=== PATIENT | female | born 1945 | race Caucasian/White ===

== ENCOUNTER → 2018-01-18 09:54 | Outpatient (CLI) | payer MEDICARE, OTHER, SELFPAY ==
[2018-01-18 12:21] LABS: Cholesterol 172 mg/dL (140-199); Glucose 98 mg/dL (80-110); HDL Cholesterol 58 mg/dL (40-60); LDL Cholesterol Calculated 96 mg/dL (<100); Triglycerides 88 mg/dL (35-150)
[2018-01-18 12:49] LABS: Thyroid Stimulating Hormone 0.75 uIU/mL (0.47-4.68)
== END ==
PROVIDERS: Family Provider Family Medicine; PCP Family Medicine; Visit Provider Family Medicine
DX: E03.9 Hypothyroidism, unspecified (principal)
CPT/HCPCS: 36415; 80061; 82947; 84443

== ENCOUNTER 2018-03-03 13:00 | Outpatient (RCR) | payer MEDICARE, OTHER, SELFPAY ==
--- NOTE | 2017-11-04 10:34 | PT.OTN ---
Transition note: On November 03, 2017 our therapy services consisting of Speech, Occupational, and Physical Therapy transitioned from the [employer] electronic documentation system to a new [employer] electronic documentation system.?? All documentation prior to November 03 can be found under [employer] saved data. From November 03 forward all medical record documentation will be in [employer] 6.1.
--- NOTE | 2017-11-04 11:13 | PT.OTN ---
Physical Therapy Treatment Note PT-OP-A Visit Information Start: 11/04/17 08:07 Freq: Status: Active Protocol: Activity Type Activity Date Activity User E-Sign Co-Sign Detail Recorded Client Recorded Date Recorded By Document 11/04/17 09:55 [facility] [email or web address] 11/04/17 11:13 [facility] 11/04/17 09:55 Out-Patient Physical Therapy Visit Information [Visit Information] -Visit Type Treatment Note -Visit Note POC due 11/16/17 -Visit Start Time 09:00 -Visit Stop Time 09:55 -Total Visit Minutes 55 -Visit Number 3 PT-OP-C Subjective Start: 11/04/17 08:07 Freq: Status: Active Protocol: Activity Type Activity Date Activity User E-Sign Co-Sign Detail Recorded Client Recorded Date Recorded By Document 11/04/17 09:55 [facility] [email or web address] 11/04/17 11:13 [facility] 11/04/17 09:55 OP-PT Subjective [Patient Comments] -Patient Comments Pt reports she has been working on her walking & is improving with her ability to walk without significant pain. Notes her knee still bothers her medially. -Patient Reported Progress Improving PT-OP-Q Treatments Start: 11/04/17 08:07 Freq: Status: Active Protocol: Activity Type Activity Date Activity User E-Sign Co-Sign Detail Recorded Client Recorded Date Recorded By Document 11/04/17 09:55 [facility] [email or web address] 11/04/17 11:13 [facility] 11/04/17 09:55 Cardio Equipment [Recumbent Stepper (Sci-Fit)] -Duration (Minutes) 5 -Resistance 1 Therapeutic Exercises [Standing Exercises] 4 -Standing Exercise Name up/down 4in then 6 in step -Comments cueing for core 3 -Standing Exercise Name Hip ext -Side bilateral -Resistance L2 -Reps/Minutes 20 (B) 2 -Standing Exercise Name TKE -Side left -Resistance L2 -Reps/Minutes 15 1 -Standing Exercise Name wall squats -Side bilateral -Reps/Minutes 20 -Comments mini Manual Therapy Treatment [Soft Tissue Mobilization] 2 -Body Location ITB -Mobilization Type Rolling -Intensity/Depth Moderate -Body Position Supine -Comments 5 min 1 -Body Location Adductors -Mobilization Type Rolling -Intensity/Depth Moderate -Body Position Supine -Comments 15 min [Joint Mobilizations] 1 -Joint PA femur & tibia FM -Grade II -Body Position Supine Strapping Treatment [Treatment] -Body Location L knee -Details of Treatment 3 Y KT tape PT-OP-R Modalities Start: 11/04/17 08:07 Freq: Status: Active Protocol: Activity Type Activity Date Activity User E-Sign Co-Sign Detail Recorded Client Recorded Date Recorded By Document 11/04/17 09:55 [facility] [email or web address] 11/04/17 11:13 [facility] 11/04/17 09:55 Hot Pack/Cold Pack [Treatment] Cold Pack -Location L knee -Patient Position Hooklying -Treatment Duration (minutes) 10 -Patient Tolerance Good PT-OP-T Assessment and Plan Start: 11/04/17 08:07 Freq: Status: Active Protocol: Activity Type Activity Date Activity User E-Sign Co-Sign Detail Recorded Client Recorded Date Recorded By Document 11/04/17 09:55 [facility] [email or web address] 11/04/17 11:13 [facility] 11/04/17 09:55 Physical Therapy Assessment [Assessment Summary] -Assessment Pt is improving with tolerance to exercises and requires cueing for neutral core position. Pt improving with soft tissue mobility of LLE . Physical Therapy Plan [Next Visit Focus/Plan] -Next Visit Plan Try deeper squats & cont to work on glute/quad strength
--- NOTE | 2017-11-06 10:16 | PT.OTN ---
Physical Therapy Treatment Note PT-OP-A Visit Information Start: 11/04/17 08:07 Freq: Status: Active Protocol: Activity Type Activity Date Activity User E-Sign Co-Sign Detail Recorded Client Recorded Date Recorded By Document 11/06/17 09:26 [facility] [id number] 11/06/17 10:16 [facility] 11/06/17 09:26 Out-Patient Physical Therapy Visit Information [Visit Information] -Visit Type Treatment Note -Visit Note POC due 11/16/17 -Visit Start Time 09:25 -Visit Stop Time 10:20 -Total Visit Minutes 55 PT-OP-C Subjective Start: 11/04/17 08:07 Freq: Status: Active Protocol: Activity Type Activity Date Activity User E-Sign Co-Sign Detail Recorded Client Recorded Date Recorded By Document 11/06/17 09:26 [facility] [id number] 11/06/17 10:16 [facility] 11/06/17 09:26 OP-PT Subjective [Patient Comments] -Patient Comments Reports she did squats with rolling on the ball at the wall and was able to massage her back. PT-OP-Q Treatments Start: 11/04/17 08:07 Freq: Status: Active Protocol: Activity Type Activity Date Activity User E-Sign Co-Sign Detail Recorded Client Recorded Date Recorded By Document 11/06/17 09:26 [facility] [id number] 11/06/17 10:16 [facility] 11/06/17 09:26 Cardio Equipment [Recumbent Elliptical (BiodWebflakes)] -Duration (Minutes) 5 -Resistance 1 -Seat Position 8 Therapeutic Exercises [Supine Exercises] 1 -Supine Exercise Name HS & calf stretch -Side left -Resistance manual [Standing Exercises] 5 -Standing Exercise Name resisted fwd/ back -Resistance yellow 6 -Standing Exercise Name resisted sidestep -Resistance yellow 4 -Standing Exercise Name up/down 4in then 6 in step -Comments cueing for core 2 -Standing Exercise Name TKE -Resistance L2 -Reps/Minutes 30 Manual Therapy Treatment [Soft Tissue Mobilization] 3 -Body Location HS -Mobilization Type Rolling [Joint Mobilizations] 3 -Joint fibula -Direction post w/APs 2 -Joint patella -Direction sup, med & inf -Grade III PT-OP-R Modalities Start: 11/04/17 08:07 Freq: Status: Active Protocol: Activity Type Activity Date Activity User E-Sign Co-Sign Detail Recorded Client Recorded Date Recorded By Document 11/06/17 09:26 [facility] [id number] 11/06/17 10:16 [facility] 11/06/17 09:26 Hot Pack/Cold Pack [Treatment] Cold Pack -Location L knee -Patient Position Hooklying -Treatment Duration (minutes) 10 -Patient Tolerance Good PT-OP-T Assessment and Plan Start: 11/04/17 08:07 Freq: Status: Active Protocol: Activity Type Activity Date Activity User E-Sign Co-Sign Detail Recorded Client Recorded Date Recorded By Document 11/06/17 09:26 [facility] [id number] 11/06/17 10:16 [facility] 11/06/17 09:26 Physical Therapy Assessment [Assessment Summary] -Assessment Pt is improving with ability to do stairs without pain. Pt has tightness in calf and HS and encouraged to stretch. Physical Therapy Plan [Next Visit Focus/Plan] -Next Visit Plan calf/HS stretchs, work on deeper squats
--- NOTE | 2017-11-13 10:49 | PT.OTN ---
Physical Therapy Treatment Note PT-OP-A Visit Information Start: 11/04/17 08:07 Freq: Status: Active Protocol: Document 11/12/17 13:01 [facility] (Rec: 11/12/17 13:06 [facility] [id number]) Out-Patient Physical Therapy Visit Information Visit Information Visit Type Progress Note Visit Note 13 visits this year Visit Start Time 13:00 Visit Stop Time 13:55 Total Visit Minutes 55 Visit Number 0 since Gcode PT-OP-C Subjective Start: 11/04/17 08:07 Freq: Status: Active Protocol: Document 11/12/17 13:01 [facility] (Rec: 11/12/17 13:06 [facility] [id number]) OP-PT Subjective Patient Comments Patient Comments Pt reports knee has been doing well. Reports she is walking. Patient Questionnaires Lower Extremity Functional Scale LEFS Score 38 LEFS Impairment 40 to 59% Impaired (Score 32- 47) PT-OP-K Range of Motion Start: 11/04/17 08:07 Freq: Status: Active Protocol: Document 11/12/17 13:06 [facility] (Rec: 11/12/17 13:52 [facility] [id number]) Knee Goniometric Range of Motion Knee Measured in Degrees Left Flexion Active (degrees) 125 Extension Active (degrees) 2 PT-OP-M Strength Start: 11/04/17 08:07 Freq: Status: Active Protocol: Document 11/12/17 13:06 [facility] (Rec: 11/12/17 13:52 [facility] [id number]) Hip Strength Hip Manual Muscle Testing Right Flexion (L2) 5 Normal Extension (S1) 4+ Good+ Abduction 4+ Good+ Adduction 5 Normal External Rotation 4+ Good+ Internal Rotation 5 Normal Left Flexion (L2) 5 Normal Extension (S1) 4+ Good+ Abduction 4+ Good+ Adduction 5 Normal External Rotation 4- Good- Internal Rotation 5 Normal Comments pain w/ER Knee Strength Knee Manual Muscle Testing Left Flexion (S2) 4+ Good+ Extension (L3) 4 Good Comments pain w/ext 5/5 R 5/5 (B) ankle PT-OP-Q Treatments Start: 11/04/17 08:07 Freq: Status: Active Protocol: Document 11/12/17 13:06 [facility] (Rec: 11/12/17 13:52 [facility] [id number]) Cardio Equipment Recumbent Elliptical (Biodex) Duration (Minutes) 5 Resistance 2 Seat Position 8 Therapeutic Exercises Supine Exercises 2 Supine Exercise Name bridge with HS curl w/ball Reps/Minutes 5 stopped d/t difficulty Sidelying Exercises 1 Sidelying Exercise Name clamshell Resistance L1 Reps/Minutes 2x10 Sitting Exercises 2 Sitting Exercise Name LAQ Resistance L2 Reps/Minutes 2x10 1 Sitting Exercise Name HS curl Resistance L2 Reps/Minutes 2x10 Manual Therapy Treatment Soft Tissue Mobilization 3 Body Location HS Mobilization Type Rolling 2 Body Location ITB Mobilization Type Rolling Intensity/Depth Moderate Body Position Supine Joint Mobilizations 2 Joint patella Direction sup, med & inf Grade III Taping 1 Body Location 3 Y Knee L PT-OP-R Modalities Start: 11/04/17 08:07 Freq: Status: Active Protocol: Document 11/12/17 13:06 [facility] (Rec: 11/13/17 10:45 [facility] [id number]) Hot Pack/Cold Pack Treatment Cold Pack Location L knee Patient Position Hooklying Treatment Duration (minutes) 10 Patient Tolerance Good PT-OP-T Assessment and Plan Start: 11/04/17 08:07 Freq: Status: Active Protocol: Document 11/12/17 13:06 [facility] (Rec: 11/12/17 13:52 [facility] [id number]) Physical Therapy Assessment Rehab Potential Rehabilitation Potential Good Impairments Impairments Activity Tolerance Balance Gait Pain ROM Strength Goals Six Impairment knee ROM Manager Product Goal (LTG) WNL to allow pt to do stairs LTG Duration achieved Five Impairment MMT Manager Product Goal (LTG) 5/5 MMT to allow pt to dance & play with grandkids LTG Duration by 01/02/18-good progress Three Impairment LEFS Manager Product Goal (LTG) 60/80 LTG Duration by 01/12/18 Two Impairment stairs Short Term Goal (STG) up stairs reciprocally w/o pain STG Duration achieved Detention Goal (LTG) down stairs reciprocally w/o pain LTG Duration by November 16-achieved One Impairment pain w/ dance,up/down steps reciprocally,rowing machine, squat, walking Short Term Goal (STG) indep with HEP STG Duration 12/04/17-progressing HEP Manager Product Goal (LTG) Able to do rec activities without pain LTG Duration by 01/12/18-progressing Progress Towards Goals Progress Towards Goals Progressing Toward Goals Assessment Summary Assessment Pt is improving significantly in strength & functional ability. Cont need to work on functional activities & exercises that involve bending . Physical Therapy Plan Frequency and Duration Frequency of Treatment 1-2x/week Plan of Care Start Date 11/12/17 Plan of Care End Date 01/12/18 Therapeutic Interventions Therapeutic Interventions Aquatic Therapy Balance Training Gait Training Home Exercise Program Joint Mobilizations Manual Therapy Soft Tissue Mobilization Taping Therapeutic Exercises Modalities Cold Pack/Ice Massage Electric Stimulation Hot Packs Ultrasound Next Visit Focus/Plan Next Visit Plan Work on deeper squats
--- NOTE | 2017-11-13 10:49 | PT.OPPN ---
Physical Therapy Progress Note PT-OP-A Visit Information Start: 11/04/17 08:07 Freq: Status: Active Protocol: Document 11/12/17 13:01 [facility] (Rec: 11/12/17 13:06 [facility] [id number]) Out-Patient Physical Therapy Visit Information Visit Information Visit Type Progress Note Visit Note 13 visits this year Visit Start Time 13:00 Visit Stop Time 13:55 Total Visit Minutes 55 Visit Number 0 since Gcode PT-OP-C Subjective Start: 11/04/17 08:07 Freq: Status: Active Protocol: Document 11/12/17 13:01 [facility] (Rec: 11/12/17 13:06 [facility] [id number]) OP-PT Subjective Patient Comments Patient Comments Pt reports knee has been doing well. Reports she is walking. Patient Questionnaires Lower Extremity Functional Scale LEFS Score 38 LEFS Impairment 40 to 59% Impaired (Score 32- 47) PT-OP-K Range of Motion Start: 11/04/17 08:07 Freq: Status: Active Protocol: Document 11/12/17 13:06 [facility] (Rec: 11/12/17 13:52 [facility] [id number]) Knee Goniometric Range of Motion Knee Measured in Degrees Left Flexion Active (degrees) 125 Extension Active (degrees) 2 PT-OP-M Strength Start: 11/04/17 08:07 Freq: Status: Active Protocol: Document 11/12/17 13:06 [facility] (Rec: 11/12/17 13:52 [facility] [id number]) Hip Strength Hip Manual Muscle Testing Right Flexion (L2) 5 Normal Extension (S1) 4+ Good+ Abduction 4+ Good+ Adduction 5 Normal External Rotation 4+ Good+ Internal Rotation 5 Normal Left Flexion (L2) 5 Normal Extension (S1) 4+ Good+ Abduction 4+ Good+ Adduction 5 Normal External Rotation 4- Good- Internal Rotation 5 Normal Comments pain w/ER Knee Strength Knee Manual Muscle Testing Left Flexion (S2) 4+ Good+ Extension (L3) 4 Good Comments pain w/ext 5/5 R 5/5 (B) ankle PT-OP-T Assessment and Plan Start: 11/04/17 08:07 Freq: Status: Active Protocol: Document 11/12/17 13:06 [facility] (Rec: 11/12/17 13:52 [facility] [id number]) Physical Therapy Assessment Rehab Potential Rehabilitation Potential Good Impairments Impairments Activity Tolerance Balance Gait Pain ROM Strength Goals Six Impairment knee ROM Territory Account Manager Goal (LTG) WNL to allow pt to do stairs LTG Duration achieved Five Impairment MMT Territory Account Manager Goal (LTG) 5/5 MMT to allow pt to dance & play with grandkids LTG Duration by 01/02/18-good progress Three Impairment LEFS Correction Goal (LTG) 60/80 LTG Duration by 01/12/18 Two Impairment stairs Short Term Goal (STG) up stairs reciprocally w/o pain STG Duration achieved Territory Account Manager Goal (LTG) down stairs reciprocally w/o pain LTG Duration by November 16-achieved One Impairment pain w/ dance,up/down steps reciprocally,rowing machine, squat, walking Short Term Goal (STG) indep with HEP STG Duration 12/04/17-progressing HEP Territory Account Manager Goal (LTG) Able to do rec activities without pain LTG Duration by 01/12/18-progressing Progress Towards Goals Progress Towards Goals Progressing Toward Goals Assessment Summary Assessment Pt is improving significantly in strength & functional ability. Cont need to work on functional activities & exercises that involve bending . Physical Therapy Plan Frequency and Duration Frequency of Treatment 1-2x/week Plan of Care Start Date 11/12/17 Plan of Care End Date 01/12/18 Therapeutic Interventions Therapeutic Interventions Aquatic Therapy Balance Training Gait Training Home Exercise Program Joint Mobilizations Manual Therapy Soft Tissue Mobilization Taping Therapeutic Exercises Modalities Cold Pack/Ice Massage Electric Stimulation Hot Packs Ultrasound Next Visit Focus/Plan Next Visit Plan Work on deeper squats
--- NOTE | 2017-11-13 10:49 | PT.OPPOC ---
Provider Visit Care Team Role Provider Type Tiny Henderson MD Family Provider Physician Primary Care Provider Specialty: Family Practice Address: [address] [place] [address], [id number] Email: [email or web address] LORNA MeeksP- Attending Provider Advanced Practioner Clinician Specialty: Family Practice Address: [address] [place] [address], [id number] Email: Plan Of Care PT-OP-T Assessment and Plan Start: 11/04/17 08:07 Freq: Status: Active Protocol: Document 11/12/17 13:06 [facility] (Rec: 11/12/17 13:52 [facility] [id number]) Physical Therapy Assessment Rehab Potential Rehabilitation Potential Good Impairments Impairments Activity Tolerance Balance Gait Pain ROM Strength Goals Six Impairment knee ROM [facility] Goal (LTG) WNL to allow pt to do stairs LTG Duration achieved Five Impairment MMT Fire Prevention Chief Goal (LTG) 5/5 MMT to allow pt to dance & play with grandkids LTG Duration by 01/02/18-good progress Three Impairment LEFS [facility] Goal (LTG) 60/80 LTG Duration by 01/12/18 Two Impairment stairs Short Term Goal (STG) up stairs reciprocally w/o pain STG Duration achieved [facility] Goal (LTG) down stairs reciprocally w/o pain LTG Duration by November 16-achieved One Impairment pain w/ dance,up/down steps reciprocally,rowing machine, squat, walking Short Term Goal (STG) indep with HEP STG Duration 12/04/17-progressing HEP Fire Prevention Chief Goal (LTG) Able to do rec activities without pain LTG Duration by 01/12/18-progressing Progress Towards Goals Progress Towards Goals Progressing Toward Goals Assessment Summary Assessment Pt is improving significantly in strength & functional ability. Cont need to work on functional activities & exercises that involve bending . Physical Therapy Plan Frequency and Duration Frequency of Treatment 1-2x/week Plan of Care Start Date 11/12/17 Plan of Care End Date 01/12/18 Therapeutic Interventions Therapeutic Interventions Aquatic Therapy Balance Training Gait Training Home Exercise Program Joint Mobilizations Manual Therapy Soft Tissue Mobilization Taping Therapeutic Exercises Modalities Cold Pack/Ice Massage Electric Stimulation Hot Packs Ultrasound Next Visit Focus/Plan Next Visit Plan Work on deeper squats Plan of Care Dates Plan of Care Start Date 11/12/17 Plan of Care End Date 01/12/18 Please Sign and Return: I have reviewed this Plan of Care and certify that the skilled therapy services above are required to meet the patient???s needs. Physician Signature Date Printed Name and Credentials
--- NOTE | 2017-11-16 16:57 | PT.OTN ---
Physical Therapy Treatment Note PT-OP-A Visit Information Start: 11/04/17 08:07 Freq: Status: Active Protocol: Document 11/16/17 16:44 [facility] (Rec: 11/16/17 16:56 [facility] [id number]) Out-Patient Physical Therapy Visit Information Visit Information Visit Type Treatment Note Visit Start Time 10:15 Visit Stop Time 11:00 Total Visit Minutes 58 Visit Number 1 since G code PT-OP-C Subjective Start: 11/04/17 08:07 Freq: Status: Active Protocol: Document 11/16/17 16:44 [facility] (Rec: 11/16/17 16:56 [facility] [id number]) OP-PT Subjective Patient Comments Patient Comments Trying to do more walking PT-OP-K Range of Motion Start: 11/04/17 08:07 Freq: Status: Active Protocol: Document 11/12/17 13:06 [facility] (Rec: 11/12/17 13:52 [facility] [id number]) Knee Goniometric Range of Motion Knee Measured in Degrees Left Flexion Active (degrees) 125 Extension Active (degrees) 2 PT-OP-M Strength Start: 11/04/17 08:07 Freq: Status: Active Protocol: Document 11/12/17 13:06 [facility] (Rec: 11/12/17 13:52 [facility] [id number]) Hip Strength Hip Manual Muscle Testing Right Flexion (L2) 5 Normal Extension (S1) 4+ Good+ Abduction 4+ Good+ Adduction 5 Normal External Rotation 4+ Good+ Internal Rotation 5 Normal Left Flexion (L2) 5 Normal Extension (S1) 4+ Good+ Abduction 4+ Good+ Adduction 5 Normal External Rotation 4- Good- Internal Rotation 5 Normal Comments pain w/ER Knee Strength Knee Manual Muscle Testing Left Flexion (S2) 4+ Good+ Extension (L3) 4 Good Comments pain w/ext 5/5 R 5/5 (B) ankle PT-OP-Q Treatments Start: 11/04/17 08:07 Freq: Status: Active Protocol: Document 11/16/17 16:56 [facility] (Rec: 11/16/17 16:57 [facility] [id number]) Manual Therapy Treatment Taping 1 Body Location left knee Treatment Focus improved patellar tracking and pain managment Type of Tape Kinesio Tape PT-OP-R Modalities Start: 11/04/17 08:07 Freq: Status: Active Protocol: Document 11/12/17 13:06 [facility] (Rec: 11/13/17 10:45 [facility] [id number]) Hot Pack/Cold Pack Treatment Cold Pack Location L knee Patient Position Hooklying Treatment Duration (minutes) 10 Patient Tolerance Good PT-OP-S Aquatic Treatment Start: 11/16/17 16:44 Freq: Status: Active Protocol: Document 11/16/17 16:44 [facility] (Rec: 11/16/17 16:56 [facility] [id number]) Aquatics Treatment Pool Entry/Exit Pool Entry/Exit Method Stairs Assistance Verbal Cues Water Walking Lunge Walk Water Level Chest Level Walking Equipment UE paddles Level of Assistance Standby Assistance Verbal Cues [place] March Water Level Chest Level Walking Equipment Resistance Fins Level of Assistance Standby Assistance Verbal Cues Marching Water Level Chest Level Walking Equipment Resistance Fins Level of Assistance Standby Assistance Verbal Cues Sideways Water Level Chest Level Walking Equipment Resistance Fins Level of Assistance Standby Assistance Verbal Cues Backwards Water Level Chest Level Walking Equipment Resistance Fins Level of Assistance Standby Assistance Verbal Cues Forwards Water Level Chest Level Walking Equipment Resistance Fins Level of Assistance Standby Assistance Verbal Cues Lower Extremity Exercises 2 Details step-ups Equipment Resistance Fins Comments 4 boxes 1 Details Hip flex/ext, ab/ad, squats, heel/toe raise Body Position Standing Water Level Chest Level Equipment Resistance Fins Stonewall Activities Stonewall Activities Bicycle Bicycle Backwards Running Hip Abduction/Adduction Equipment flotation belt Duration 15 min PT-OP-T Assessment and Plan Start: 11/04/17 08:07 Freq: Status: Active Protocol: Document 11/16/17 16:44 [facility] (Rec: 11/16/17 16:56 [facility] [id number]) Physical Therapy Assessment Assessment Summary Assessment Improving pain and LE function Physical Therapy Plan Frequency and Duration Frequency of Treatment 1-2x/week Plan of Care Start Date 11/12/17 Plan of Care End Date 01/12/18 Next Visit Focus/Plan Next Visit Plan Progression of functional therapeutic exercises for strengthening and pain management; emphasis on correct muscle activation and form.
--- NOTE | 2017-11-26 13:54 | PT.OTN ---
Physical Therapy Treatment Note PT-OP-A Visit Information Start: 11/04/17 08:07 Freq: Status: Active Protocol: Document 11/26/17 13:00 [facility] (Rec: 11/26/17 13:54 [facility] [id number]) Out-Patient Physical Therapy Visit Information Visit Information Visit Type Treatment Note Visit Start Time 13:45 Visit Stop Time 14:40 Total Visit Minutes 55 Visit Number 2 since G code PT-OP-C Subjective Start: 11/04/17 08:07 Freq: Status: Active Protocol: Document 11/26/17 13:00 [facility] (Rec: 11/26/17 13:53 [facility] [id number]) OP-PT Subjective Patient Comments Patient Comments Pt reports she started going downhill after last pool session. Reports she couldn't do her exercises some days. PT-OP-K Range of Motion Start: 11/04/17 08:07 Freq: Status: Active Protocol: Document 11/12/17 13:06 [facility] (Rec: 11/12/17 13:52 [facility] [id number]) Knee Goniometric Range of Motion Knee Measured in Degrees Left Flexion Active (degrees) 125 Extension Active (degrees) 2 PT-OP-M Strength Start: 11/04/17 08:07 Freq: Status: Active Protocol: Document 11/12/17 13:06 [facility] (Rec: 11/12/17 13:52 [facility] [id number]) Hip Strength Hip Manual Muscle Testing Right Flexion (L2) 5 Normal Extension (S1) 4+ Good+ Abduction 4+ Good+ Adduction 5 Normal External Rotation 4+ Good+ Internal Rotation 5 Normal Left Flexion (L2) 5 Normal Extension (S1) 4+ Good+ Abduction 4+ Good+ Adduction 5 Normal External Rotation 4- Good- Internal Rotation 5 Normal Comments pain w/ER Knee Strength Knee Manual Muscle Testing Left Flexion (S2) 4+ Good+ Extension (L3) 4 Good Comments pain w/ext 5/5 R 5/5 (B) ankle PT-OP-Q Treatments Start: 11/04/17 08:07 Freq: Status: Active Protocol: Document 11/26/17 13:00 [facility] (Rec: 11/26/17 13:53 [facility] [id number]) Cardio Equipment Recumbent Elliptical ([employer]) Duration (Minutes) 5 Resistance 2 Seat Position 8 Therapeutic Exercises Supine Exercises 1 Supine Exercise Name abdominal series flex Reps/Minutes 3x20 sec Sitting Exercises 2 Sitting Exercise Name LAQ Resistance L2 Reps/Minutes 2x10 1 Sitting Exercise Name HS curl Resistance L2 Reps/Minutes 2x10 Standing Exercises 7 Standing Exercise Name sidestep Resistance L1 Reps/Minutes 2x20ft 5 Standing Exercise Name wall squat Resistance L2 for abd Reps/Minutes 20 6 Standing Exercise Name hip ext Resistance L2 Reps/Minutes 15 Manual Therapy Treatment Soft Tissue Mobilization 1 Body Location adductors Mobilization Type Rolling Intensity/Depth Moderate Joint Mobilizations 2 Joint patella Direction sup, med & inf Grade III 1 Joint femur & tibia Direction AP FM Body Position Supine Taping 1 Body Location 3 Y Knee L Treatment Focus improved patellar tracking and pain managment Manual Techniques 1 Type MET Comments For R post innominate rotation PT-OP-R Modalities Start: 11/04/17 08:07 Freq: Status: Active Protocol: Document 11/26/17 13:00 [facility] (Rec: 11/26/17 13:54 [facility] [id number]) Hot Pack/Cold Pack Treatment Cold Pack Location L knee Patient Position Hooklying Treatment Duration (minutes) 10 Patient Tolerance Good PT-OP-S Aquatic Treatment Start: 11/16/17 16:44 Freq: Status: Active Protocol: Document 11/16/17 16:44 [facility] (Rec: 11/16/17 16:56 [facility] [id number]) Aquatics Treatment Pool Entry/Exit Pool Entry/Exit Method Stairs Assistance Verbal Cues Water Walking Lunge Walk Water Level Chest Level Walking Equipment UE paddles Level of Assistance Standby Assistance Verbal Cues [place] March Water Level Chest Level Walking Equipment Resistance Fins Level of Assistance Standby Assistance Verbal Cues [place] Water Level Chest Level Walking Equipment Resistance Fins Level of Assistance Standby Assistance Verbal Cues Sideways Water Level Chest Level Walking Equipment Resistance Fins Level of Assistance Standby Assistance Verbal Cues Backwards Water Level Chest Level Walking Equipment Resistance Fins Level of Assistance Standby Assistance Verbal Cues [place] Water Level Chest Level Walking Equipment Resistance Fins Level of Assistance Standby Assistance Verbal Cues Lower Extremity Exercises 2 Details step-ups Equipment Resistance Fins Comments 4 boxes 1 Details Hip flex/ext, ab/ad, squats, heel/toe raise Body Position Standing Water Level Chest Level Equipment Resistance Fins [place] Activities [place] Activities Bicycle Bicycle Backwards Running Hip Abduction/Adduction Equipment flotation belt Duration 15 min PT-OP-T Assessment and Plan Start: 11/04/17 08:07 Freq: Status: Active Protocol: Document 11/26/17 13:00 [facility] (Rec: 11/26/17 13:53 [facility] [id number]) Physical Therapy Assessment Assessment Summary Assessment Improved pain & alignment after MET. Cueing required for exercises. Less pain with squats with tband around knees Physical Therapy Plan Frequency and Duration Frequency of Treatment 1-2x/week Plan of Care Start Date 11/12/17 Plan of Care End Date 01/12/18 Next Visit Focus/Plan Next Visit Plan Progression of functional therapeutic exercises for strengthening and pain management; emphasis on correct muscle activation and form. Please Sign and Return: I have reviewed this Plan of Care and certify that the skilled therapy services above are required to meet the patient???s needs. Physician Signature Date Printed Name and Credentials Clinical Instructor Signature Printed Name and Credentials
--- NOTE | 2017-12-08 17:02 | PT.OTN ---
Current Diagnoses Pain in left knee (12/08/17) Difficulty in walking, not elsewhere classified (12/08/17) Weakness (12/08/17) Physical Therapy Treatment Note PT-OP-A Visit Information Start: 11/04/17 08:07 Freq: Status: Active Protocol: Document 12/08/17 16:53 [facility] (Rec: 12/08/17 17:02 [facility] [id number]) Out-Patient Physical Therapy Visit Information Visit Information Visit Type Treatment Note Visit Note 15 total Visit Start Time 16:00 Visit Stop Time 16:45 Total Visit Minutes 45 Visit Number Gcode 3 PT-OP-C Subjective Start: 11/04/17 08:07 Freq: Status: Active Protocol: Document 12/08/17 16:53 [facility] (Rec: 12/08/17 17:02 [facility] [id number]) OP-PT Subjective Patient Comments Patient Comments Reports overall doing well. Noted pain when walking about 1 mile to the museum field trip yesterday. Reports when stretching her leg in a flexed position and to her L, she feels a pain. PT-OP-K Range of Motion Start: 11/04/17 08:07 Freq: Status: Active Protocol: Document 11/12/17 13:06 [facility] (Rec: 11/12/17 13:52 [facility] [id number]) Knee Goniometric Range of Motion Knee Measured in Degrees Left Flexion Active (degrees) 125 Extension Active (degrees) 2 PT-OP-M Strength Start: 11/04/17 08:07 Freq: Status: Active Protocol: Document 11/12/17 13:06 [facility] (Rec: 11/12/17 13:52 [facility] [id number]) Hip Strength Hip Manual Muscle Testing Right Flexion (L2) 5 Normal Extension (S1) 4+ Good+ Abduction 4+ Good+ Adduction 5 Normal External Rotation 4+ Good+ Internal Rotation 5 Normal Left Flexion (L2) 5 Normal Extension (S1) 4+ Good+ Abduction 4+ Good+ Adduction 5 Normal External Rotation 4- Good- Internal Rotation 5 Normal Comments pain w/ER Knee Strength Knee Manual Muscle Testing Left Flexion (S2) 4+ Good+ Extension (L3) 4 Good Comments pain w/ext 5/5 R 5/5 (B) ankle PT-OP-Q Treatments Start: 11/04/17 08:07 Freq: Status: Active Protocol: Document 12/08/17 16:53 [facility] (Rec: 12/08/17 17:02 [facility] [id number]) Manual Therapy Treatment Soft Tissue Mobilization 3 Body Location HS Mobilization Type Rolling Comments med 1 Body Location adductors Mobilization Type Rolling Intensity/Depth Moderate Joint Mobilizations 1 Joint femur & tibia Direction PA, lat & med FM Comments supine and S/l Taping 1 Body Location 1 I strip for MCL support PT-OP-R Modalities Start: 11/04/17 08:07 Freq: Status: Active Protocol: Document 11/26/17 13:00 [facility] (Rec: 11/26/17 13:54 [facility] [id number]) Hot Pack/Cold Pack Treatment Cold Pack Location L knee Patient Position Hooklying Treatment Duration (minutes) 10 Patient Tolerance Good PT-OP-S Aquatic Treatment Start: 11/16/17 16:44 Freq: Status: Active Protocol: Document 11/16/17 16:44 [facility] (Rec: 11/16/17 16:56 [facility] [id number]) Aquatics Treatment Pool Entry/Exit Pool Entry/Exit Method Stairs Assistance Verbal Cues Water Walking Lunge Walk Water Level Chest Level Walking Equipment UE paddles Level of Assistance Standby Assistance Verbal Cues [place] March Water Level Chest Level Walking Equipment Resistance Fins Level of Assistance Standby Assistance Verbal Cues [place] Water Level Chest Level Walking Equipment Resistance Fins Level of Assistance Standby Assistance Verbal Cues Sideways Water Level Chest Level Walking Equipment Resistance Fins Level of Assistance Standby Assistance Verbal Cues Backwards Water Level Chest Level Walking Equipment Resistance Fins Level of Assistance Standby Assistance Verbal Cues [place] Water Level Chest Level Walking Equipment Resistance Fins Level of Assistance Standby Assistance Verbal Cues Lower Extremity Exercises 2 Details step-ups Equipment Resistance Fins Comments 4 boxes 1 Details Hip flex/ext, ab/ad, squats, heel/toe raise Body Position Standing Water Level Chest Level Equipment Resistance Fins [place] Activities [place] Activities Bicycle Bicycle Backwards Running Hip Abduction/Adduction Equipment flotation belt Duration 15 min PT-OP-T Assessment and Plan Start: 11/04/17 08:07 Freq: Status: Active Protocol: Document 12/08/17 16:53 [facility] (Rec: 12/08/17 17:02 [facility] [id number]) Physical Therapy Assessment Assessment Summary Assessment No pain in stretched position after manual rx. Pt had cont to have tenderness over MCL. Physical Therapy Plan Frequency and Duration Frequency of Treatment 1-2x/week Plan of Care Start Date 11/12/17 Plan of Care End Date 01/12/18 Therapeutic Interventions Therapeutic Interventions Aquatic Therapy Balance Training Gait Training Home Exercise Program Joint Mobilizations Manual Therapy Soft Tissue Mobilization Taping Therapeutic Exercises Modalities Cold Pack/Ice Massage Electric Stimulation Hot Packs Ultrasound Next Visit Focus/Plan Next Note Type Treatment Note Next Visit Plan Cont to work on functional exercises to build strength & improve ROM Please Sign and Return: I have reviewed this Plan of Care and certify that the skilled therapy services above are required to meet the patient?s needs. Physician Signature Date Printed Name and Credentials Clinical Instructor Signature Printed Name and Credentials
--- NOTE | 2017-12-09 15:18 | PT.OTN ---
Current Diagnoses Pain in left knee (12/09/17) Difficulty in walking, not elsewhere classified (12/09/17) Weakness (12/09/17) Physical Therapy Treatment Note PT-OP-A Visit Information Start: 11/04/17 08:07 Freq: Status: Active Protocol: Document 12/09/17 11:00 [facility] (Rec: 12/09/17 14:28 [facility] [email or web address]) Out-Patient Physical Therapy Visit Information Visit Information Visit Type Treatment Note Visit Start Time 11:00 Visit Stop Time 11:40 Total Visit Minutes 40 Visit Number 4 since G code PT-OP-C Subjective Start: 11/04/17 08:07 Freq: Status: Active Protocol: Document 12/09/17 11:00 [facility] (Rec: 12/09/17 14:28 [facility] [id number]) OP-PT Subjective Patient Comments Patient Comments Her granddaughter ran into her LE and her knee is sore PT-OP-K Range of Motion Start: 11/04/17 08:07 Freq: Status: Active Protocol: Document 11/12/17 13:06 [facility] (Rec: 11/12/17 13:52 [facility] [id number]) Knee Goniometric Range of Motion Knee Measured in Degrees Left Flexion Active (degrees) 125 Extension Active (degrees) 2 PT-OP-M Strength Start: 11/04/17 08:07 Freq: Status: Active Protocol: Document 11/12/17 13:06 [facility] (Rec: 11/12/17 13:52 [facility] [id number]) Hip Strength Hip Manual Muscle Testing Right Flexion (L2) 5 Normal Extension (S1) 4+ Good+ Abduction 4+ Good+ Adduction 5 Normal External Rotation 4+ Good+ Internal Rotation 5 Normal Left Flexion (L2) 5 Normal Extension (S1) 4+ Good+ Abduction 4+ Good+ Adduction 5 Normal External Rotation 4- Good- Internal Rotation 5 Normal Comments pain w/ER Knee Strength Knee Manual Muscle Testing Left Flexion (S2) 4+ Good+ Extension (L3) 4 Good Comments pain w/ext 5/5 R 5/5 (B) ankle PT-OP-S Aquatic Treatment Start: 11/16/17 16:44 Freq: Status: Active Protocol: Document 12/09/17 11:00 [facility] (Rec: 12/09/17 15:18 [facility] [email or web address]) Aquatics Treatment Pool Entry/Exit Pool Entry/Exit Method Stairs Assistance Verbal Cues Water Walking Lunge Walk Water Level Chest Level Walking Equipment UE paddles Level of Assistance Standby Assistance Verbal Cues [place] March Water Level Chest Level Walking Equipment Resistance Fins Level of Assistance Standby Assistance Verbal Cues [place] Water Level Chest Level Walking Equipment Resistance Fins Level of Assistance Standby Assistance Verbal Cues Sideways Water Level Chest Level Walking Equipment Resistance Fins Level of Assistance Standby Assistance Verbal Cues Backwards Water Level Chest Level Walking Equipment Resistance Fins Level of Assistance Standby Assistance Verbal Cues [place] Water Level Chest Level Walking Equipment Resistance Fins Level of Assistance Standby Assistance Verbal Cues Lower Extremity Exercises 2 Details step-ups Reps/Duration 2 x 10 reps Comments 6 box 1 Details Hip flex/ext, ab/ad, squats, heel/toe raise Body Position Standing Water Level Chest Level Equipment Resistance Fins Reps/Duration x 10 each bilateral [place] Activities [place] Activities Bicycle Bicycle Backwards Running Hip Abduction/Adduction Equipment flotation belt Duration 15 min PT-OP-T Assessment and Plan Start: 11/04/17 08:07 Freq: Status: Active Protocol: Document 12/09/17 11:00 [facility] (Rec: 12/09/17 15:18 [facility] [id number]) Physical Therapy Assessment Assessment Summary Assessment Pt reports tired after exercises and requested to be done after 40 min. She reports being more sore today after her granddaughter ran into her LE. Physical Therapy Plan Frequency and Duration Frequency of Treatment 1-2x/week Plan of Care Start Date 11/12/17 Plan of Care End Date 01/12/18 Therapeutic Interventions Therapeutic Interventions Aquatic Therapy Balance Training Gait Training Home Exercise Program Joint Mobilizations Manual Therapy Soft Tissue Mobilization Taping Therapeutic Exercises Modalities Cold Pack/Ice Massage Electric Stimulation Hot Packs Ultrasound Next Visit Focus/Plan Next Note Type Treatment Note Next Visit Plan add HS stretches in pool
--- NOTE | 2018-01-13 17:16 | PT.OTN ---
Current Diagnoses Pain in left knee (12/09/17) Difficulty in walking, not elsewhere classified (12/09/17) Weakness (12/09/17) Physical Therapy Treatment Note PT-OP-A Visit Information Start: 11/04/17 08:07 Freq: Status: Active Protocol: Document 01/13/18 13:00 [facility] (Rec: 01/13/18 17:14 [facility] [id number]) Out-Patient Physical Therapy Visit Information Visit Information Visit Type Treatment Note Visit Start Time 13:00 Visit Stop Time 13:45 Total Visit Minutes 45 Visit Number G code PT-OP-C Subjective Start: 11/04/17 08:07 Freq: Status: Active Protocol: Document 01/13/18 13:00 [facility] (Rec: 01/13/18 17:14 [facility] [id number]) OP-PT Subjective Patient Comments Patient Comments Overall feeling much better, doing HEP as able at home and using home pool. Agreeable to discharge from PT after 2 further visits; 1 aquatic and 1 land based to assure safety and independence with home program and make modifications and adjustments as indicated. Patient Reported Progress Improving PT-OP-K Range of Motion Start: 11/04/17 08:07 Freq: Status: Active Protocol: Document 11/12/17 13:06 [facility] (Rec: 11/12/17 13:52 [facility] [id number]) Knee Goniometric Range of Motion Knee Measured in Degrees Left Flexion Active (degrees) 125 Extension Active (degrees) 2 PT-OP-M Strength Start: 11/04/17 08:07 Freq: Status: Active Protocol: Document 11/12/17 13:06 [facility] (Rec: 11/12/17 13:52 [facility] [id number]) Hip Strength Hip Manual Muscle Testing Right Flexion (L2) 5 Normal Extension (S1) 4+ Good+ Abduction 4+ Good+ Adduction 5 Normal External Rotation 4+ Good+ Internal Rotation 5 Normal Left Flexion (L2) 5 Normal Extension (S1) 4+ Good+ Abduction 4+ Good+ Adduction 5 Normal External Rotation 4- Good- Internal Rotation 5 Normal Comments pain w/ER Knee Strength Knee Manual Muscle Testing Left Flexion (S2) 4+ Good+ Extension (L3) 4 Good Comments pain w/ext 5/5 R 5/5 (B) ankle PT-OP-Q Treatments Start: 11/04/17 08:07 Freq: Status: Active Protocol: Document 12/08/17 16:53 [facility] (Rec: 12/08/17 17:02 [facility] [email or web address]) Manual Therapy Treatment Soft Tissue Mobilization 3 Body Location HS Mobilization Type Rolling Comments med 1 Body Location adductors Mobilization Type Rolling Intensity/Depth Moderate Joint Mobilizations 1 Joint femur & tibia Direction PA, lat & med FM Comments supine and S/l Taping 1 Body Location 1 I strip for MCL support PT-OP-R Modalities Start: 11/04/17 08:07 Freq: Status: Active Protocol: Document 11/26/17 13:00 [facility] (Rec: 11/26/17 13:54 [facility] [id number]) Hot Pack/Cold Pack Treatment Cold Pack Location L knee Patient Position Hooklying Treatment Duration (minutes) 10 Patient Tolerance Good PT-OP-S Aquatic Treatment Start: 11/16/17 16:44 Freq: Status: Active Protocol: Document 01/13/18 13:00 [facility] (Rec: 01/13/18 17:14 [facility] [id number]) Aquatics Treatment Pool Entry/Exit Pool Entry/Exit Method Stairs Assistance Verbal Cues Water Walking Lunge Walk Water Level Chest Level Walking Equipment UE paddles Level of Assistance Standby Assistance Verbal Cues [place] March Water Level Chest Level Walking Equipment Resistance Fins Level of Assistance Standby Assistance Verbal Cues [place] Water Level Chest Level Walking Equipment Resistance Fins Level of Assistance Standby Assistance Verbal Cues [place] Water Level Chest Level Walking Equipment Resistance Fins Level of Assistance Standby Assistance Verbal Cues Backwards Water Level Chest Level Walking Equipment Resistance Fins Level of Assistance Standby Assistance Verbal Cues [place] Water Level Chest Level Walking Equipment Resistance Fins Level of Assistance Standby Assistance Verbal Cues Lower Extremity Exercises 2 Details step-ups Reps/Duration 2 x 10 reps Comments 6 box 1 Details Hip flex/ext, ab/ad, squats, heel/toe raise Body Position Standing Water Level Chest Level Equipment Resistance Fins Reps/Duration x 10 each bilateral Comments some pain with flex/ext in LB; discontinued today [place] Activities [place] Activities Bicycle Bicycle Backwards [place] Running Hip Abduction/Adduction Equipment flotation belt Duration 15 min PT-OP-T Assessment and Plan Start: 11/04/17 08:07 Freq: Status: Active Protocol: Document 01/13/18 13:00 [facility] (Rec: 01/13/18 17:14 [facility] [id number]) Physical Therapy Assessment Goals Seven Impairment Patient education Shelter Goal (LTG) Patient safe and independent with HEP and aquatic exercise program for long-term fitness and pain managment LTG Duration 2 wks Six Impairment knee ROM Rn Advice Goal (LTG) WNL to allow pt to do stairs LTG Duration achieved Five Impairment MMT Rn Advice Goal (LTG) 5/5 MMT to allow pt to dance & play with grandkids (goal progress) LTG Duration 2 wks Three Impairment LEFS Rn Advice Goal (LTG) 60/80 goal progress LTG Duration by 01/12/18 Two Impairment stairs Short Term Goal (STG) up stairs reciprocally w/o pain STG Duration achieved Shelter Goal (LTG) down stairs reciprocally w/o pain LTG Duration by November 16-achieved One Impairment pain w/ dance,up/down steps reciprocally,rowing machine, squat, walking Short Term Goal (STG) indep with HEP STG Duration 12/04/17-progressing HEP Rn Advice Goal (LTG) Able to do rec activities without pain LTG Duration by 01/12/18-progressing Assessment Summary Assessment Pt. has made good progress with combination of land and aquatic physical therapy. Still has pain that is variable dependent on activity but much less. Physical Therapy Plan Frequency and Duration Frequency of Treatment 2 visits Duration of Treatment 2 wks Plan of Care Start Date 01/13/18 Plan of Care End Date 01/22/18 Therapeutic Interventions Therapeutic Interventions Aquatic Therapy Balance Training Gait Training Home Exercise Program Joint Mobilizations Manual Therapy Soft Tissue Mobilization Taping Therapeutic Exercises Modalities Cold Pack/Ice Massage Electric Stimulation Hot Packs Ultrasound Next Visit Focus/Plan Next Note Type Treatment Note Next Visit Plan 1 further aquatic PT treatment and 1 land-based PT
--- NOTE | 2018-01-13 17:16 | PT.OPPOC ---
Current Diagnoses Pain in left knee (12/09/17) Difficulty in walking, not elsewhere classified (12/09/17) Weakness (12/09/17) Provider Visit Care Team Role Provider Type Tiny Henderson MD Family Provider Physician Primary Care Provider Specialty: [facility] Practice Address: [address] [place] [address] Email: [email or web address] Attending Provider [facility] Tech Specialty: [facility] Practice Address: [address] [place] [address], [facility] Email: Plan Of Care PT-OP-T Assessment and Plan Start: 11/04/17 08:07 Freq: Status: Active Protocol: Document 01/13/18 13:00 [facility] (Rec: 01/13/18 17:14 [facility] [id number]) Physical Therapy Assessment Goals Seven Impairment Patient education Long Wall Shear Operator Goal (LTG) Patient safe and independent with HEP and aquatic exercise program for long-term fitness and pain managment LTG Duration 2 wks Six Impairment knee ROM Long Wall Shear Operator Goal (LTG) WNL to allow pt to do stairs LTG Duration achieved Five Impairment MMT Skilled Nursing Goal (LTG) 5/5 MMT to allow pt to dance & play with grandkids (goal progress) LTG Duration 2 wks Three Impairment LEFS Skilled Nursing Goal (LTG) 60/80 goal progress LTG Duration by 01/12/18 Two Impairment stairs Short Term Goal (STG) up stairs reciprocally w/o pain STG Duration achieved Skilled Nursing Goal (LTG) down stairs reciprocally w/o pain LTG Duration by November 16-achieved One Impairment pain w/ dance,up/down steps reciprocally,rowing machine, squat, walking Short Term Goal (STG) indep with HEP STG Duration 12/04/17-progressing HEP Long Wall Shear Operator Goal (LTG) Able to do rec activities without pain LTG Duration by 01/12/18-progressing Assessment Summary Assessment Pt. has made good progress with combination of land and aquatic physical therapy. Still has pain that is variable dependent on activity but much less. Physical Therapy Plan Frequency and Duration Frequency of Treatment 2 visits Duration of Treatment 2 wks Plan of Care Start Date 01/13/18 Plan of Care End Date 01/22/18 Therapeutic Interventions Therapeutic Interventions Aquatic Therapy Balance Training Gait Training Home Exercise Program Joint Mobilizations Manual Therapy Soft Tissue Mobilization Taping Therapeutic Exercises Modalities Cold Pack/Ice Massage Electric Stimulation Hot Packs Ultrasound Next Visit Focus/Plan Next Note Type Treatment Note Next Visit Plan 1 further aquatic PT treatment and 1 land-based PT Plan of Care Dates Plan of Care Start Date 01/13/18 Plan of Care End Date 01/22/18 Please Sign and Return: I have reviewed this Plan of Care and certify that the skilled therapy services above are required to meet the patient?s needs. Physician Signature Date Printed Name and Credentials Clinical Instructor Signature Printed Name and Credentials
--- NOTE | 2018-01-15 14:00 | PT.OTN ---
Current Diagnoses Pain in left knee (01/15/18) Difficulty in walking, not elsewhere classified (01/15/18) Weakness (01/15/18) Physical Therapy Treatment Note PT-OP-A Visit Information Start: 11/04/17 08:07 Freq: Status: Active Protocol: Document 01/15/18 14:00 TMS (Rec: 01/15/18 16:30 TMS [email or web address]) Out-Patient Physical Therapy Visit Information Visit Information Visit Type Treatment Note Visit Start Time 13:15 Visit Stop Time 14:00 Total Visit Minutes 45 Visit Number 1 since G code PT-OP-C Subjective Start: 11/04/17 08:07 Freq: Status: Active Protocol: Document 01/15/18 14:00 TMS (Rec: 01/15/18 16:30 TMS [email or web address]) OP-PT Subjective Patient Comments Patient Comments Pt. planning on buying a pool punch card so she can come to pool independently. States she tried to jump rope and fell down on first attempt. Pt. unhurt but surprised that she couldn't do it. PT-OP-K Range of Motion Start: 11/04/17 08:07 Freq: Status: Active Protocol: Document 11/12/17 13:06 [facility] (Rec: 11/12/17 13:52 [facility] [id number]) Knee Goniometric Range of Motion Knee Measured in Degrees Left Flexion Active (degrees) 125 Extension Active (degrees) 2 PT-OP-M Strength Start: 11/04/17 08:07 Freq: Status: Active Protocol: Document 11/12/17 13:06 [facility] (Rec: 11/12/17 13:52 [facility] [id number]) Hip Strength Hip Manual Muscle Testing Right Flexion (L2) 5 Normal Extension (S1) 4+ Good+ Abduction 4+ Good+ Adduction 5 Normal External Rotation 4+ Good+ Internal Rotation 5 Normal Left Flexion (L2) 5 Normal Extension (S1) 4+ Good+ Abduction 4+ Good+ Adduction 5 Normal External Rotation 4- Good- Internal Rotation 5 Normal Comments pain w/ER Knee Strength Knee Manual Muscle Testing Left Flexion (S2) 4+ Good+ Extension (L3) 4 Good Comments pain w/ext 5/5 R 5/5 (B) ankle PT-OP-Q Treatments Start: 11/04/17 08:07 Freq: Status: Active Protocol: Document 12/08/17 16:53 [facility] (Rec: 12/08/17 17:02 [facility] [id number]) Manual Therapy Treatment Soft Tissue Mobilization 3 Body Location HS Mobilization Type Rolling Comments med 1 Body Location adductors Mobilization Type Rolling Intensity/Depth Moderate Joint Mobilizations 1 Joint femur & tibia Direction PA, lat & med FM Comments supine and S/l Taping 1 Body Location 1 I strip for MCL support PT-OP-R Modalities Start: 11/04/17 08:07 Freq: Status: Active Protocol: Document 11/26/17 13:00 [facility] (Rec: 11/26/17 13:54 [facility] [id number]) Hot Pack/Cold Pack Treatment Cold Pack Location L knee Patient Position Hooklying Treatment Duration (minutes) 10 Patient Tolerance Good PT-OP-S Aquatic Treatment Start: 11/16/17 16:44 Freq: Status: Active Protocol: Document 01/15/18 14:00 TMS (Rec: 01/15/18 16:30 TMS [email or web address]) Aquatics Treatment Pool Entry/Exit Pool Entry/Exit Method Stairs Assistance Verbal Cues Water Walking Forwards Water Level Chest Level Walking Equipment Resistance Fins Level of Assistance Standby Assistance Verbal Cues Lower Extremity Exercises 3 Details knee flexion/hip ext. hoe down Body Position Standing Water Level Chest Level Equipment Resistance Fins 2 Details step-ups Reps/Duration x 10 reps. Comments 6 box, including laterally and eccentrically. 1 Details Hip flex/ext, ab/ad, squats, heel/toe raise Body Position Standing Water Level Chest Level Equipment Resistance Fins Reps/Duration x 10 each bilateral Lower Extremity Stretches 2 Details Quad Equipment Large Noodle Comments Small float also 1 Details Hamstring Body Position Standing Water Level Chest Level Equipment Small Noodle [place] Activities [place] Activities Bicycle [place] Equipment flotation belt Duration 15 min PT-OP-T Assessment and Plan Start: 11/04/17 08:07 Freq: Status: Active Protocol: Document 01/15/18 14:00 TMS (Rec: 01/15/18 16:30 TMS [email or web address]) Physical Therapy Assessment Assessment Summary Assessment Pt. gave aquatic exercise hand out, hand out reviewed. Pt. seemed to understand hand out well. No complaints of pain in water today. Physical Therapy Plan Frequency and Duration Frequency of Treatment 2 visits Duration of Treatment 2 wks Plan of Care Start Date 01/13/18 Plan of Care End Date 01/22/18 Next Visit Focus/Plan Next Note Type Treatment Note Next Visit Plan Continue with 1 more land based PT session, pt. to continue with aquatics independently.
--- NOTE | 2018-01-19 14:12 | PT.OTN ---
Current Diagnoses Pain in left knee (01/19/18) Difficulty in walking, not elsewhere classified (01/19/18) Weakness (01/19/18) Physical Therapy Treatment Note PT-OP-A Visit Information Start: 11/04/17 08:07 Freq: Status: Active Protocol: Document 01/19/18 13:07 [facility] (Rec: 01/19/18 14:11 [facility] [id number]) Out-Patient Physical Therapy Visit Information Visit Information Visit Type Treatment Note Visit Note 19 treatments Visit Start Time 13:00 Visit Stop Time 13:45 Total Visit Minutes 45 Visit Number 07/15 Gcode PT-OP-C Subjective Start: 11/04/17 08:07 Freq: Status: Active Protocol: Document 01/19/18 13:07 [facility] (Rec: 01/19/18 14:12 [facility] [id number]) OP-PT Subjective Patient Comments Patient Comments Pt reports she jumped down off a log and her R ankle swelled up after. PT-OP-K Range of Motion Start: 11/04/17 08:07 Freq: Status: Active Protocol: Document 01/19/18 13:07 [facility] (Rec: 01/19/18 14:11 [facility] [id number]) Knee Goniometric Range of Motion Knee Measured in Degrees Left Patient Position Supine Flexion Active (degrees) 127 Extension Active (degrees) 0 PT-OP-M Strength Start: 11/04/17 08:07 Freq: Status: Active Protocol: Document 01/19/18 13:07 [facility] (Rec: 01/19/18 14:11 [facility] [id number]) Hip Strength Hip Manual Muscle Testing Right Flexion (L2) 5 Normal Extension (S1) 4+ Good+ Abduction 4+ Good+ External Rotation 4+ Good+ Internal Rotation 5 Normal Left Flexion (L2) 5 Normal Extension (S1) 4+ Good+ Abduction 4 Good External Rotation 4- Good- Internal Rotation 4+ Good+ Comments pain ER PT-OP-Q Treatments Start: 11/04/17 08:07 Freq: Status: Active Protocol: Document 01/19/18 13:07 [facility] (Rec: 01/19/18 14:11 [facility] [id number]) Cardio Equipment Recumbent Elliptical ([employer]) Duration (Minutes) 5 Resistance 2 Therapeutic Exercises Supine Exercises 2 Supine Exercise Name bridges with marches Therapeutic Activity Therapeutic Activity 1 Name Avoiding jumping & high impact Comments Discussed maintaining activity to keep strong but avoid high impact activity for injuries. Manual Therapy Treatment Soft Tissue Mobilization 3 Body Location HS Mobilization Type Rolling Comments FM PT-OP-R Modalities Start: 11/04/17 08:07 Freq: Status: Active Protocol: Document 11/26/17 13:00 [facility] (Rec: 11/26/17 13:54 [facility] [id number]) Hot Pack/Cold Pack Treatment Cold Pack Location L knee Patient Position Hooklying Treatment Duration (minutes) 10 Patient Tolerance Good PT-OP-S Aquatic Treatment Start: 11/16/17 16:44 Freq: Status: Active Protocol: Document 01/15/18 14:00 TMS (Rec: 01/15/18 16:30 TMS [email or web address]) Aquatics Treatment Pool Entry/Exit Pool Entry/Exit Method Stairs Assistance Verbal Cues Water Walking Forwards Water Level Chest Level Walking Equipment Resistance Fins Level of Assistance Standby Assistance Verbal Cues Lower Extremity Exercises 3 Details knee flexion/hip ext. hoe down Body Position Standing Water Level Chest Level Equipment Resistance Fins 2 Details step-ups Reps/Duration x 10 reps. Comments 6 box, including laterally and eccentrically. 1 Details Hip flex/ext, ab/ad, squats, heel/toe raise Body Position Standing Water Level Chest Level Equipment Resistance Fins Reps/Duration x 10 each bilateral Lower Extremity Stretches 2 Details Quad Equipment Large Noodle Comments Small float also 1 Details Hamstring Body Position Standing Water Level Chest Level Equipment Small Noodle [place] Activities [place] Activities Bicycle [place] Equipment flotation belt Duration 15 min PT-OP-T Assessment and Plan Start: 11/04/17 08:07 Freq: Status: Active Protocol: Document 01/19/18 13:07 [facility] (Rec: 01/19/18 14:11 [facility] [id number]) Physical Therapy Assessment Impairments Impairments Activity Tolerance Functional Mobility Gait Pain Posture ROM Soft Tissue Mobility Strength Goals Seven Impairment Patient education Complex Case Manager Goal (LTG) Patient safe and independent with HEP and aquatic exercise program for long-term fitness and pain managment LTG Duration achieved Five Impairment MMT Complex Case Manager Goal (LTG) 5/5 MMT to allow pt to dance & play with grandkids (goal progress) LTG Duration 03/22/18 Three Impairment LEFS Complex Case Manager Goal (LTG) 60/80 goal progress LTG Duration 03/22/18 One Impairment pain w/ dance,up/down steps reciprocally,rowing machine, squat, walking Short Term Goal (STG) indep with HEP STG Duration 02/18/18-progressing HEP Complex Case Manager Goal (LTG) Able to do rec activities without pain LTG Duration by 03/15/18-excellent progress Physical Therapy Plan Frequency and Duration Frequency of Treatment 1x/Wk to every other Duration of Treatment 2 months Plan of Care Start Date 01/19/18 Plan of Care End Date 03/22/18 Therapeutic Interventions Therapeutic Interventions Aquatic Therapy Balance Training Gait Training Home Exercise Program Joint Mobilizations Manual Therapy Soft Tissue Mobilization Taping Therapeutic Exercises Modalities Cold Pack/Ice Massage Electric Stimulation Hot Packs Ultrasound Next Visit Focus/Plan Next Note Type Treatment Note Next Visit Plan Cont to progress HEP & edu on appropriate mechanics
--- NOTE | 2018-01-26 13:51 | PT.OTN ---
Current Diagnoses Pain in left knee (01/26/18) Difficulty in walking, not elsewhere classified (01/26/18) Weakness (01/26/18) Physical Therapy Treatment Note PT-OP-A Visit Information Start: 11/04/17 08:07 Freq: Status: Active Protocol: Document 01/26/18 13:00 [facility] (Rec: 01/26/18 13:50 [facility] [id number]) Out-Patient Physical Therapy Visit Information Visit Information Visit Type Treatment Note Visit Note 20 treatments Visit Start Time 13:00 Visit Stop Time 13:45 Total Visit Minutes 45 Visit Number 2/ Gcode PT-OP-C Subjective Start: 11/04/17 08:07 Freq: Status: Active Protocol: Document 01/26/18 13:00 [facility] (Rec: 01/26/18 13:50 [facility] [id number]) OP-PT Subjective Patient Comments Patient Comments Reports knee gives her trouble at night. Reports she got up and took a edna and that helped because she was a little stressed. PT-OP-K Range of Motion Start: 11/04/17 08:07 Freq: Status: Active Protocol: Document 01/19/18 13:07 [facility] (Rec: 01/19/18 14:11 [facility] [id number]) Knee Goniometric Range of Motion Knee Measured in Degrees Left Patient Position Supine Flexion Active (degrees) 127 Extension Active (degrees) 0 PT-OP-M Strength Start: 11/04/17 08:07 Freq: Status: Active Protocol: Document 01/19/18 13:07 [facility] (Rec: 01/19/18 14:11 [facility] [id number]) Hip Strength Hip Manual Muscle Testing Right Flexion (L2) 5 Normal Extension (S1) 4+ Good+ Abduction 4+ Good+ External Rotation 4+ Good+ Internal Rotation 5 Normal Left Flexion (L2) 5 Normal Extension (S1) 4+ Good+ Abduction 4 Good External Rotation 4- Good- Internal Rotation 4+ Good+ Comments pain ER PT-OP-Q Treatments Start: 11/04/17 08:07 Freq: Status: Active Protocol: Document 01/26/18 13:00 [facility] (Rec: 01/26/18 13:50 [facility] [id number]) Cardio Equipment Recumbent Elliptical ([employer]) Duration (Minutes) 5 Resistance 2 Therapeutic Exercises Sidelying Exercises 1 Sidelying Exercise Name abd Reps/Minutes 20 Therapeutic Activity Therapeutic Activity 2 Name sleeping position Comments s/l & supine Manual Therapy Treatment Soft Tissue Mobilization 3 Body Location HS Mobilization Type Rolling Comments FM Joint Mobilizations 3 Joint patella femoral Direction med, sup, inf PT-OP-R Modalities Start: 11/04/17 08:07 Freq: Status: Active Protocol: Document 01/26/18 13:00 [facility] (Rec: 01/26/18 13:51 [facility] [id number]) Hot Pack/Cold Pack Treatment Hot Pack Location L knee Patient Position Sidelying Treatment Duration (minutes) 6 Comments Pt wanted short term MHP. PT-OP-S Aquatic Treatment Start: 11/16/17 16:44 Freq: Status: Active Protocol: Document 01/15/18 14:00 TMS (Rec: 01/15/18 16:30 TMS [id number]) Aquatics Treatment Pool Entry/Exit Pool Entry/Exit Method Stairs Assistance Verbal Cues Water Walking Forwards Water Level Chest Level Walking Equipment Resistance Fins Level of Assistance Standby Assistance Verbal Cues Lower Extremity Exercises 3 Details knee flexion/hip ext. hoe down Body Position Standing Water Level Chest Level Equipment Resistance Fins 2 Details step-ups Reps/Duration x 10 reps. Comments 6 box, including laterally and eccentrically. 1 Details Hip flex/ext, ab/ad, squats, heel/toe raise Body Position Standing Water Level Chest Level Equipment Resistance Fins Reps/Duration x 10 each bilateral Lower Extremity Stretches 2 Details Quad Equipment Large Noodle Comments Small float also 1 Details Hamstring Body Position Standing Water Level Chest Level Equipment Small Noodle [place] Activities [place] Activities Bicycle [place] Equipment flotation belt Duration 15 min PT-OP-T Assessment and Plan Start: 11/04/17 08:07 Freq: Status: Active Protocol: Document 01/26/18 13:00 [facility] (Rec: 01/26/18 13:50 [facility] [id number]) Physical Therapy Assessment Goals Seven Impairment Patient education Process Automation Engineer Goal (LTG) Patient safe and independent with HEP and aquatic exercise program for long-term fitness and pain managment LTG Duration achieved Five Impairment MMT Process Automation Engineer Goal (LTG) 5/5 MMT to allow pt to dance & play with grandkids (goal progress) LTG Duration 03/22/18 Three Impairment LEFS Residential Goal (LTG) 60/80 goal progress LTG Duration 03/22/18 One Impairment pain w/ dance,up/down steps reciprocally,rowing machine, squat, walking Short Term Goal (STG) indep with HEP STG Duration 02/18/18-progressing HEP Residential Goal (LTG) Able to do rec activities without pain LTG Duration by 03/15/18-excellent progress Assessment Summary Assessment Pt had improvement with comfort in ext with soft tissue mobility. She required position cueing for s/l abd and had dec pain with sleep position. Physical Therapy Plan Frequency and Duration Frequency of Treatment 1x/Wk to every other Duration of Treatment 2 months Plan of Care Start Date 01/19/18 Plan of Care End Date 03/22/18 Next Visit Focus/Plan Next Note Type Treatment Note Next Visit Plan Cont to progress HEP & edu on appropriate mechanics
--- NOTE | 2018-02-02 16:55 | PT.OTN ---
Current Diagnoses Pain in left knee (02/02/18) Difficulty in walking, not elsewhere classified (02/02/18) Weakness (02/02/18) Physical Therapy Treatment Note PT-OP-A Visit Information Start: 11/04/17 08:07 Freq: Status: Active Protocol: Document 02/02/18 16:50 [facility] (Rec: 02/02/18 16:55 [facility] [id number]) Out-Patient Physical Therapy Visit Information Visit Information Visit Type Treatment Note Visit Note 21 treatments Visit Start Time 11:20 Visit Stop Time 12:00 Total Visit Minutes 40 Visit Number 3/ PT-OP-C Subjective Start: 11/04/17 08:07 Freq: Status: Active Protocol: Document 02/02/18 16:50 [facility] (Rec: 02/02/18 16:55 [facility] [id number]) OP-PT Subjective Patient Comments Patient Comments Pt reports knee has been aching and R ankle has given her a little bit of difficulty . PT-OP-K Range of Motion Start: 11/04/17 08:07 Freq: Status: Active Protocol: Document 01/19/18 13:07 [facility] (Rec: 01/19/18 14:11 [facility] [id number]) Knee Goniometric Range of Motion Knee Measured in Degrees Left Patient Position Supine Flexion Active (degrees) 127 Extension Active (degrees) 0 PT-OP-M Strength Start: 11/04/17 08:07 Freq: Status: Active Protocol: Document 01/19/18 13:07 [facility] (Rec: 01/19/18 14:11 [facility] [id number]) Hip Strength Hip Manual Muscle Testing Right Flexion (L2) 5 Normal Extension (S1) 4+ Good+ Abduction 4+ Good+ External Rotation 4+ Good+ Internal Rotation 5 Normal Left Flexion (L2) 5 Normal Extension (S1) 4+ Good+ Abduction 4 Good External Rotation 4- Good- Internal Rotation 4+ Good+ Comments pain ER PT-OP-Q Treatments Start: 11/04/17 08:07 Freq: Status: Active Protocol: Document 02/02/18 16:50 [facility] (Rec: 02/02/18 16:55 [facility] [id number]) Cardio Equipment Recumbent Elliptical ([employer]) Duration (Minutes) 5 Resistance 2 Gym Equipment Shuttle Balance 1 Details red clips Comments WBOS, NBOS fwd & side while hitting balloon Therapeutic Exercises Supine Exercises 1 Supine Exercise Name self PA glide tibia Standing Exercises 7 Standing Exercise Name side step Resistance yellow band Reps/Minutes 20ft 5 Standing Exercise Name fwd/back walk Resistance yellow Reps/Minutes 30ft Manual Therapy Treatment Soft Tissue Mobilization 3 Body Location HS Mobilization Type Rolling Comments FM Joint Mobilizations 3 Joint patella femoral Direction med, sup, inf Neuro Re-Education Treatment Balance Activities 2 Details SLS 1 Details tandem walk Reps/Duration 2x40ft PT-OP-R Modalities Start: 11/04/17 08:07 Freq: Status: Active Protocol: Document 01/26/18 13:00 [facility] (Rec: 01/26/18 13:51 [facility] [id number]) Hot Pack/Cold Pack Treatment Hot Pack Location L knee Patient Position Sidelying Treatment Duration (minutes) 6 Comments Pt wanted short term MHP. PT-OP-S Aquatic Treatment Start: 11/16/17 16:44 Freq: Status: Active Protocol: Document 01/15/18 14:00 TMS (Rec: 01/15/18 16:30 TMS [email or web address]) Aquatics Treatment Pool Entry/Exit Pool Entry/Exit Method Stairs Assistance Verbal Cues Water Walking Forwards Water Level Chest Level Walking Equipment Resistance Fins Level of Assistance Standby Assistance Verbal Cues Lower Extremity Exercises 3 Details knee flexion/hip ext. hoe down Body Position Standing Water Level Chest Level Equipment Resistance Fins 2 Details step-ups Reps/Duration x 10 reps. Comments 6 box, including laterally and eccentrically. 1 Details Hip flex/ext, ab/ad, squats, heel/toe raise Body Position Standing Water Level Chest Level Equipment Resistance Fins Reps/Duration x 10 each bilateral Lower Extremity Stretches 2 Details Quad Equipment Large Noodle Comments Small float also 1 Details Hamstring Body Position Standing Water Level Chest Level Equipment Small Noodle [place] Activities [place] Activities Bicycle [place] Equipment flotation belt Duration 15 min PT-OP-T Assessment and Plan Start: 11/04/17 08:07 Freq: Status: Active Protocol: Document 02/02/18 16:50 [facility] (Rec: 02/02/18 16:55 [facility] [id number]) Physical Therapy Assessment Goals Seven Impairment Patient education Residential Goal (LTG) Patient safe and independent with HEP and aquatic exercise program for long-term fitness and pain managment LTG Duration achieved Five Impairment MMT Residential Goal (LTG) 5/5 MMT to allow pt to dance & play with grandkids (goal progress) LTG Duration 03/22/18 Three Impairment LEFS Residential Goal (LTG) 60/80 goal progress LTG Duration 03/22/18 One Impairment pain w/ dance,up/down steps reciprocally,rowing machine, squat, walking Short Term Goal (STG) indep with HEP STG Duration 02/18/18-progressing HEP Cotton Stomper Goal (LTG) Able to do rec activities without pain LTG Duration by 03/15/18-excellent progress Assessment Summary Assessment Pt had difficulty with balance exercises and was challenged by side stepping with resistance. Physical Therapy Plan Frequency and Duration Frequency of Treatment 1x/Wk to every other Duration of Treatment 2 months Plan of Care Start Date 01/19/18 Plan of Care End Date 03/22/18 Next Visit Focus/Plan Next Note Type Treatment Note Next Visit Plan Cont to progress HEP & edu on appropriate mechanics
--- NOTE | 2018-02-24 10:34 | PT.OTN ---
Current Diagnoses Pain in left knee (02/24/18) Difficulty in walking, not elsewhere classified (02/24/18) Weakness (02/24/18) Physical Therapy Treatment Note PT-OP-A Visit Information Start: 11/04/17 08:07 Freq: Status: Active Protocol: Document 02/24/18 09:50 LR (Rec: 02/24/18 10:34 [facility] [id number]) Out-Patient Physical Therapy Visit Information Visit Information Visit Type Treatment Note Visit Note 22 treatments Visit Start Time 09:45 Visit Stop Time 10:30 Total Visit Minutes 45 Visit Number 10/13 PT-OP-C Subjective Start: 11/04/17 08:07 Freq: Status: Active Protocol: Document 02/24/18 09:50 LR (Rec: 02/24/18 10:34 [facility] [id number]) OP-PT Subjective Patient Comments Patient Comments Overall doing well. Her L knee bothers her after too much exercise but can sit down and it feels better. R ankle bothers her in some positions when she is outside. PT-OP-K Range of Motion Start: 11/04/17 08:07 Freq: Status: Active Protocol: Document 01/19/18 13:07 LR (Rec: 01/19/18 14:11 [facility] [id number]) Knee Goniometric Range of Motion Knee Measured in Degrees Left Patient Position Supine Flexion Active (degrees) 127 Extension Active (degrees) 0 PT-OP-M Strength Start: 11/04/17 08:07 Freq: Status: Active Protocol: Document 01/19/18 13:07 [facility] (Rec: 01/19/18 14:11 [facility] [id number]) Hip Strength Hip Manual Muscle Testing Right Flexion (L2) 5 Normal Extension (S1) 4+ Good+ Abduction 4+ Good+ External Rotation 4+ Good+ Internal Rotation 5 Normal Left Flexion (L2) 5 Normal Extension (S1) 4+ Good+ Abduction 4 Good External Rotation 4- Good- Internal Rotation 4+ Good+ Comments pain ER PT-OP-Q Treatments Start: 11/04/17 08:07 Freq: Status: Active Protocol: Document 02/24/18 09:50 LR (Rec: 02/24/18 10:34 [facility] [id number]) Cardio Equipment Recumbent Elliptical ([employer]) Duration (Minutes) 5 Resistance 2 Therapeutic Exercises Supine Exercises 3 Supine Exercise Name HS & calf & willian test Standing Exercises 6 Standing Exercise Name HS & calf stretching 4 Standing Exercise Name squat stretch at sink 3 Standing Exercise Name squat at counter & over chair Manual Therapy Treatment Soft Tissue Mobilization 3 Body Location HS Mobilization Type Rolling Comments FM 2 Body Location calf Mobilization Type Rolling PT-OP-R Modalities Start: 11/04/17 08:07 Freq: Status: Active Protocol: Document 01/26/18 13:00 LR (Rec: 01/26/18 13:51 [facility] [id number]) Hot Pack/Cold Pack Treatment Hot Pack Location L knee Patient Position Sidelying Treatment Duration (minutes) 6 Comments Pt wanted short term MHP. PT-OP-S Aquatic Treatment Start: 11/16/17 16:44 Freq: Status: Active Protocol: Document 01/15/18 14:00 TMS (Rec: 01/15/18 16:30 TMS [id number]) Aquatics Treatment Pool Entry/Exit Pool Entry/Exit Method Stairs Assistance Verbal Cues Water Walking Forwards Water Level Chest Level Walking Equipment Resistance Fins Level of Assistance Standby Assistance Verbal Cues Lower Extremity Exercises 3 Details knee flexion/hip ext. hoe down Body Position Standing Water Level Chest Level Equipment Resistance Fins 2 Details step-ups Reps/Duration x 10 reps. Comments 6 box, including laterally and eccentrically. 1 Details Hip flex/ext, ab/ad, squats, heel/toe raise Body Position Standing Water Level Chest Level Equipment Resistance Fins Reps/Duration x 10 each bilateral Lower Extremity Stretches 2 Details Quad Equipment Large Noodle Comments Small float also 1 Details Hamstring Body Position Standing Water Level Chest Level Equipment Small Noodle [place] Activities [place] Activities Bicycle [place] Equipment flotation belt Duration 15 min PT-OP-T Assessment and Plan Start: 11/04/17 08:07 Freq: Status: Active Protocol: Document 02/24/18 09:50 [facility] (Rec: 02/24/18 10:34 [facility] [id number]) Physical Therapy Assessment Goals Seven Impairment Patient education Usp Goal (LTG) Patient safe and independent with HEP and aquatic exercise program for long-term fitness and pain managment LTG Duration achieved Five Impairment MMT Usp Goal (LTG) 5/5 MMT to allow pt to dance & play with grandkids (goal progress) LTG Duration 03/22/18 Three Impairment LEFS Usp Goal (LTG) 60/80 goal progress LTG Duration 03/22/18 One Impairment pain w/ dance,up/down steps reciprocally,rowing machine, squat, walking Short Term Goal (STG) indep with HEP STG Duration 02/18/18-progressing HEP Usp Goal (LTG) Able to do rec activities without pain LTG Duration by 03/15/18-excellent progress Assessment Summary Assessment Cueing required for squat form . Pt felt fatigued with treatment. She had significant restrictions in post thigh & calf region. Encouraged to stretch Physical Therapy Plan Frequency and Duration Frequency of Treatment 1x/Wk to every other Duration of Treatment 2 months Plan of Care Start Date 01/19/18 Plan of Care End Date 03/22/18 Next Visit Focus/Plan Next Note Type Treatment Note Next Visit Plan Cont to progress HEP & edu on appropriate mechanics
--- NOTE | 2018-03-03 13:48 | PT.OTN ---
Current Diagnoses Pain in left knee (03/03/18) Difficulty in walking, not elsewhere classified (03/03/18) Weakness (03/03/18) Physical Therapy Treatment Note PT-OP-A Visit Information Start: 11/04/17 08:07 Freq: Status: Active Protocol: Document 03/03/18 13:04 [facility] (Rec: 03/03/18 13:47 [facility] [id number]) Out-Patient Physical Therapy Visit Information Visit Information Visit Type Treatment Note Visit Note 23 treatments Visit Start Time 13:00 Visit Stop Time 13:55 Total Visit Minutes 55 Visit Number 11/12 PT-OP-C Subjective Start: 11/04/17 08:07 Freq: Status: Active Protocol: Document 03/03/18 13:04 [facility] (Rec: 03/03/18 13:47 [facility] [id number]) OP-PT Subjective Patient Comments Patient Comments Reports she is concered about her hand d/t a trigger finger. Overall doing better with knee. Patient Questionnaires Lower Extremity Functional Scale LEFS Score 55 LEFS Impairment 20 to 39% Impaired (Score 48- 62) PT-OP-K Range of Motion Start: 11/04/17 08:07 Freq: Status: Active Protocol: Document 03/03/18 13:04 [facility] (Rec: 03/03/18 13:47 [facility] [id number]) Knee Goniometric Range of Motion Knee Measured in Degrees Left Flexion Active (degrees) 128 Extension Active (degrees) 2 PT-OP-M Strength Start: 11/04/17 08:07 Freq: Status: Active Protocol: Document 03/03/18 13:04 [facility] (Rec: 03/03/18 13:47 [facility] [id number]) Hip Strength Hip Manual Muscle Testing Right Flexion (L2) 5 Normal Extension (S1) 4 Good Abduction 4+ Good+ External Rotation 4 Good Internal Rotation 5 Normal Left Flexion (L2) 5 Normal Extension (S1) 4 Good Abduction 4 Good External Rotation 4 Good Internal Rotation 5 Normal PT-OP-Q Treatments Start: 11/04/17 08:07 Freq: Status: Active Protocol: Document 03/03/18 13:04 [facility] (Rec: 03/03/18 13:47 [facility] [id number]) Cardio Equipment Recumbent Elliptical ([employer]) Duration (Minutes) 6 Resistance 2 Therapeutic Exercises Sidelying Exercises 2 Sidelying Exercise Name clamshell Equipment Used L1 Reps/Minutes 15 1 Sidelying Exercise Name abd Reps/Minutes 15 Standing Exercises 6 Standing Exercise Name HS & calf stretching 3 Standing Exercise Name squat at counter & over chair Manual Therapy Treatment Soft Tissue Mobilization 3 Body Location HS Mobilization Type Rolling Comments FM PT-OP-R Modalities Start: 11/04/17 08:07 Freq: Status: Active Protocol: Document 03/03/18 13:04 [facility] (Rec: 03/03/18 13:48 [facility] [id number]) Hot Pack/Cold Pack Treatment Hot Pack Location L knee &hs Patient Position Hooklying Treatment Duration (minutes) 15 Comments Pt wanted short term MHP. PT-OP-S Aquatic Treatment Start: 11/16/17 16:44 Freq: Status: Active Protocol: Document 01/15/18 14:00 TMS (Rec: 01/15/18 16:30 TMS [id number]) Aquatics Treatment Pool Entry/Exit Pool Entry/Exit Method Stairs Assistance Verbal Cues Water Walking Forwards Water Level Chest Level Walking Equipment Resistance Fins Level of Assistance Standby Assistance Verbal Cues Lower Extremity Exercises 3 Details knee flexion/hip ext. hoe down Body Position Standing Water Level Chest Level Equipment Resistance Fins 2 Details step-ups Reps/Duration x 10 reps. Comments 6 box, including laterally and eccentrically. 1 Details Hip flex/ext, ab/ad, squats, heel/toe raise Body Position Standing Water Level Chest Level Equipment Resistance Fins Reps/Duration x 10 each bilateral Lower Extremity Stretches 2 Details Quad Equipment Large Noodle Comments Small float also 1 Details Hamstring Body Position Standing Water Level Chest Level Equipment Small Noodle [place] Activities [place] Activities Bicycle [place] Equipment flotation belt Duration 15 min PT-OP-T Assessment and Plan Start: 11/04/17 08:07 Freq: Status: Active Protocol: Document 03/03/18 13:04 [facility] (Rec: 03/03/18 13:47 [facility] [id number]) Physical Therapy Assessment Goals Five Impairment MMT Credit Collections Analyst Goal (LTG) 5/5 MMT to allow pt to dance & play with grandkids (goal progress) LTG Duration 03/22/18-cont to improve with HEP Three Impairment LEFS Credit Collections Analyst Goal (LTG) 60/80 goal progress LTG Duration 9/17/18 One Impairment pain w/ dance,up/down steps reciprocally,rowing machine, squat, walking Short Term Goal (STG) indep with HEP STG Duration 02/18/18-progressing HEP Credit Collections Analyst Goal (LTG) Able to do rec activities without pain LTG Duration achieved-can manage pain if gets it Assessment Summary Assessment Pt is indep with HEP at this time and is d/c to home program to cont to progress strength. Physical Therapy Plan Discharge Physical Therapy Discharge Reasons Goals Met
--- NOTE | 2018-03-03 13:48 | PT.OPDS ---
Current Diagnoses Pain in left knee (03/03/18) Difficulty in walking, not elsewhere classified (03/03/18) Weakness (03/03/18) Provider Visit Care Team Role Provider Type Tiny Henderson MD Family Provider Physician Primary Care Provider Specialty: [facility] Practice Address: [address] [place] [address] Email: [email or web address] LORNA MeeksP- Attending Provider Advanced Practice Lead Specialty: [facility] Practice Address: [address] [place] [address], [facility] Email: Visit Number Visit Number 11/12 Discharge Summary PT-OP-C Subjective Start: 11/04/17 08:07 Freq: Status: Active Protocol: Document 03/03/18 13:04 [facility] (Rec: 03/03/18 13:47 [facility] [id number]) OP-PT Subjective Patient Comments Patient Comments Reports she is concered about her hand d/t a trigger finger. Overall doing better with knee. Patient Questionnaires Lower Extremity Functional Scale LEFS Score 55 LEFS Impairment 20 to 39% Impaired (Score 48- 62) PT-OP-K Range of Motion Start: 11/04/17 08:07 Freq: Status: Active Protocol: Document 03/03/18 13:04 [facility] (Rec: 03/03/18 13:47 [facility] [id number]) Knee Goniometric Range of Motion Knee Measured in Degrees Left Flexion Active (degrees) 128 Extension Active (degrees) 2 PT-OP-M Strength Start: 11/04/17 08:07 Freq: Status: Active Protocol: Document 03/03/18 13:04 [facility] (Rec: 03/03/18 13:47 [facility] [id number]) Hip Strength Hip Manual Muscle Testing Right Flexion (L2) 5 Normal Extension (S1) 4 Good Abduction 4+ Good+ External Rotation 4 Good Internal Rotation 5 Normal Left Flexion (L2) 5 Normal Extension (S1) 4 Good Abduction 4 Good External Rotation 4 Good Internal Rotation 5 Normal PT-OP-T Assessment and Plan Start: 11/04/17 08:07 Freq: Status: Active Protocol: Document 03/03/18 13:04 [facility] (Rec: 08/29/18 13:47 [facility] [id number]) Physical Therapy Assessment Goals Five Impairment MMT Medical Sociologist Goal (LTG) 5/5 MMT to allow pt to dance & play with grandkids (goal progress) LTG Duration 03/22/18-cont to improve with HEP Three Impairment LEFS Medical Sociologist Goal (LTG) 60/80 goal progress LTG Duration 03/22/18 One Impairment pain w/ dance,up/down steps reciprocally,rowing machine, squat, walking Short Term Goal (STG) indep with HEP STG Duration 02/18/18-progressing HEP Medical Sociologist Goal (LTG) Able to do rec activities without pain LTG Duration achieved-can manage pain if gets it Assessment Summary Assessment Pt is indep with HEP at this time and is d/c to home program to cont to progress strength. Physical Therapy Plan Discharge Physical Therapy Discharge Reasons Goals Met
== END 2018-06-18 13:55 ==
LOC: PHYS 13:00
PROVIDERS: Family Provider Family Medicine; PCP Family Medicine; Visit Provider Nurse Practitioner Family
DX: M25.562 Pain in left knee (principal); R53.1 Weakness; R26.2 Difficulty in walking, not elsewhere classified
CPT/HCPCS: 97010; 97110; 97112; 97113; 97140; 97530

== ENCOUNTER → 2018-03-12 12:10 | Outpatient (CLI) | payer MEDICARE, OTHER, SELFPAY ==
--- NOTE | 2018-03-12 12:14 | DI.RAD.S_ITS ---
PROCEDURE: XR HAND LT MIN 3V INDICATIONS: hand pain TECHNIQUE: 3 views of the hand(s) acquired. COMPARISON: None. FINDINGS: Bones: No fractures or dislocations. Carpal bones are normally aligned. No suspicious bony lesions. Soft tissues: No suspicious soft tissue calcifications. IMPRESSION: No trauma found. 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 Dictated by: Julio Gaspar M.D. on 03/12/2018 at 13:00 Approved by: Julio Gaspar M.D. on 03/12/2018 at 13:00
--- NOTE | 2018-03-12 12:14 | DI.RAD.S_ITS ---
PROCEDURE: XR HAND RT MIN 3V INDICATIONS: hand pain TECHNIQUE: 3 views of the hand(s) acquired. COMPARISON: [facility], CR, XR HAND LT MIN 3V, 03/12/2018, 11:51. FINDINGS: Bones: No fractures or dislocations. Carpal bones are normally aligned. No suspicious bony lesions. Soft tissues: No suspicious soft tissue calcifications. IMPRESSION: Mild interphalan geal degenerative osteoarthritic joint space thinning, as was seen at the left hand also. No trauma found. Dictated by: Julio Gaspar M.D. on 03/12/2018 at 13:00 Approved by: Julio Gaspar M.D. on 03/12/2018 at 13:01
== END ==
PROVIDERS: Family Provider Family Medicine; PCP Family Medicine; Visit Provider Family Medicine
DX: M79.641 Pain in right hand (principal); M79.642 Pain in left hand; M19.042 Primary osteoarthritis, left hand; M19.041 Primary osteoarthritis, right hand
CPT/HCPCS: 73130

== ENCOUNTER → 2018-06-30 12:34 | Outpatient (CLI) | payer MEDICARE, OTHER, SELFPAY ==
--- NOTE | 2018-06-30 12:37 | DI.RAD.S_ITS ---
PROCEDURE: XR CHEST 2V INDICATIONS: Ongoing cough TECHNIQUE: 2 views of the chest were acquired. COMPARISON: None. FINDINGS: Surgical changes and devices: Bilateral breast implants are noted. Lungs and pleura: No pleural effusions or pneumothorax. Lungs are clear. Mediastinum: Mediastinal contours are normal. Heart size is normal. Bones and chest wall: No suspicious bony abnormalities. Soft tissues appear unremarkable. IMPRESSION: No acute pulmonary process. Dictated by: Elda Alan M.D. on 06/30/2018 at 14:17 Approved by: Elda Alan M.D. on 06/30/2018 at 14:17
== END ==
PROVIDERS: Family Provider Family Medicine; PCP Family Medicine; Visit Provider Registered Nurse
DX: R05 Cough (principal); R50.9 Fever, unspecified
CPT/HCPCS: 71046

== ENCOUNTER → 2018-07-28 14:34 | Outpatient (CLI) | payer MEDICARE, OTHER, SELFPAY ==
--- NOTE | 2018-07-28 14:36 | DI.RAD.S_ITS ---
PROCEDURE: XR LUMBAR SPINE 2-3V INDICATIONS: low back pain TECHNIQUE: 3 views of the lumbar spine were acquired. COMPARISON: [facility], CR, XR INTRAOPERATIVE FLUORO UP TO 1 HOUR, 05/27/2017, 11:42. [facility], CT, ABDOMEN WITH CONTRAST, 05/27/2013, 12:52. FINDINGS: The current imaging shows a control device with a single lead projecting medially, with no marker indicating that this is located in the soft tissues of the right buttock region, with reference to a prior plain film showing the structure during an intraoperative fluoroscopy procedure performed by the urology surgical staff, 05/27/17. This has a very similar position, on the lateral projection from the prior study and the current study and likely is the same control device and lead. IMPRESSION: Right-sided control device and lead projecting from a posterior approach into the right dorsal hemipelvis, near the course of the S2 or S3 nerve root on the right. There is no evidence of lead displacement or fracture. Dictated by: Julio Gaspar M.D. on 07/28/2018 at 16:14 Approved by: Julio Gaspar M.D. on 07/28/2018 at 16:18
== END ==
PROVIDERS: Family Provider Family Medicine; PCP Family Medicine; Visit Provider Family Medicine
DX: M54.5 Low back pain (principal); F43.23 Adjustment disorder with mixed anxiety and depressed mood; F41.9 Anxiety disorder, unspecified; M51.35 Other intervertebral disc degeneration, thoracolumbar region; M47.816 Spondylosis without myelopathy or radiculopathy, lumbar region; Z96.89 Presence of other specified functional implants
CPT/HCPCS: 72100; 90834

== ENCOUNTER → 2018-08-27 09:26 | Outpatient (CLI) | payer MEDICARE, OTHER, SELFPAY ==
[2018-08-27 10:17] LABS: Add Manual Diff / Slide Review NO; Basophils Absolute Auto 0 /uL (0-100); Basophils Percent Auto 0.8 % (0-2); Eosinophils Absolute Auto 0 /uL (0-450); Eosinophils Percent Auto 0.2 % (2-4); Hematocrit 46.3 % (36-46); Hemoglobin 15.2 g/dL (12.0-16.0); Lymphocytes Absolute Auto 2200 /uL (1100-4500); Lymphocytes Percent Auto 35.7 % (25-40); Mean Corpuscular HGB Conc 32.7 % (30-36); Mean Corpuscular Hemoglobin 28.9 PG (26-34); Mean Corpuscular Volume 88.4 fL (80-100); Monocytes Absolute Auto 700 /uL (0-900); Monocytes Percent Auto 11.4 % (3-14); Neutrophils Absolute Auto 3300 /uL (1500-7000); Neutrophils Percent Auto 51.9 % (50-75); Platelet Count 253 X10^3/uL (150-400); Red Blood Cell Count 5.24 X10^6/uL (4.0-5.2); Red Cell Distribution Width 14.8 % (11.6-14.8); White Blood Cell Count 6.3 X10^3/uL (4.5-11.0)
[2018-08-27 10:40] LABS: HEMOLYSIS < 15 (0-50); Potassium 4.5 mmol/L (3.4-5.1)
[2018-08-27 10:41] LABS: Alanine Aminotransferase 33 IU/L (9-52); Albumin 4.3 g/dL (3.5-5.0); Albumin Globulin Ratio 1.5 (1.0-2.8); Alkaline Phosphatase 108 U/L (38-126); Aspartate Aminotransferase 32 IU/L (14-36); BUN Creatinine Ratio 28.8 (6-22); Bilirubin Total 0.4 mg/dL (0.2-1.3); Blood Urea Nitrogen 23 mg/dL (7-17); Calcium 9.5 mg/dL (8.4-10.2); Carbon Dioxide 29 mmol/L (22-32); Chloride 103 mmol/L (98-107); Cholesterol 210 mg/dL (140-199); Estimated Glomerular Filt Rate > 60.0 mL/min (>60); Globulin 2.9 g/dL (1.7-4.1); Glucose 103 mg/dL (80-110); HDL Cholesterol 70 mg/dL (40-60); LDL Cholesterol Calculated 119 mg/dL (<100); Sodium 139 mmol/L (137-145); Total Protein 7.2 g/dL (6.3-8.2); Triglycerides 104 mg/dL (35-150)
[2018-08-27 11:06] LABS: Thyroid Stimulating Hormone 1.53 uIU/mL (0.47-4.68)
== END ==
PROVIDERS: PCP Family Medicine; Visit Provider Family Medicine
DX: E03.9 Hypothyroidism, unspecified (principal); N95.1 Menopausal and female climacteric states; Z78.0 Asymptomatic menopausal state; Z00.00 Encounter for general adult medical examination without abnormal findings; Z13.220 Encounter for screening for lipoid disorders; R53.83 Other fatigue
CPT/HCPCS: 77080; 80053; 80061; 84443; 85025

== ENCOUNTER → 2018-12-06 11:43 | Outpatient (CLI) | payer MEDICARE, OTHER, SELFPAY ==
--- NOTE | 2018-12-06 11:46 | DI.RAD.S_ITS ---
PROCEDURE: XR SHOULDER LT MIN 2V INDICATIONS: pain in left wrist and shoulder s/p fall TECHNIQUE: 3 views of the shoulder were acquired. COMPARISON: [facility], CR, XR CHEST 2V, 06/30/2018, 12:43. FINDINGS: Bones: No fracture identified. There is severe subluxation the lateral clavicle relative to the acromion. No definite AC joint space widening. [id number] glenohumeral joint degeneration. Soft tissues: No suspicious soft tissue calcifications. IMPRESSION: No fracture identified. Superior subluxation of the lateral clavicle relative to acromion raising the possibility of acromioclavicular separation although no definite joint space widening is identified. This is technically age indeterminate. Please correlate clinically. Background AC joint degeneration Dictated by: Barrett Jackman M.D. on 12/06/2018 at 13:28 Approved by: Barrett Jackman M.D. on 12/06/2018 at 13:30
--- NOTE | 2018-12-06 11:46 | DI.RAD.S_ITS ---
PROCEDURE: XR WRIST LT MIN 3V INDICATIONS: pain in left wrist and shoulder s/p fall TECHNIQUE: A views of the wrist were acquired. COMPARISON: None. FINDINGS: Bones: No fractures or dislocations. No suspicious bony lesions. First CMC and triscaphe joint degeneration. Diffuse interphalangeal joint degeneration. Soft tissues: No suspicious soft tissue calcifications. IMPRESSION: No fracture. If the patient's pain or other symptoms persist, consider further evaluation with MRI Dictated by: Barrett Jackman M.D. on 12/06/2018 at 13:31 Approved by: Barrett Jackman M.D. on 12/06/2018 at 13:33
== END ==
PROVIDERS: PCP Family Medicine; Visit Provider Nurse Practitioner
DX: M25.512 Pain in left shoulder (principal); M25.532 Pain in left wrist; M19.012 Primary osteoarthritis, left shoulder; M19.032 Primary osteoarthritis, left wrist; M18.12 Unilateral primary osteoarthritis of first carpometacarpal joint, left hand; W18.30XA Fall on same level, unspecified, initial encounter
CPT/HCPCS: 73030; 73110

== ENCOUNTER → 2018-12-14 13:56 | Outpatient (CLI) | payer MEDICARE, OTHER, SELFPAY | PROVIDERS: Family Provider Family Medicine; PCP Family Medicine; Visit Provider Family Medicine | DX: Z12.31 Encounter for screening mammogram for malignant neoplasm of breast (principal); Z53.9 Procedure and treatment not carried out, unspecified reason ==

== ENCOUNTER → 2018-12-16 13:13 | Outpatient (CLI) | payer MEDICARE, OTHER, SELFPAY ==
--- NOTE | 2018-12-16 | DI.CT.S_ITS ---
PROCEDURE: CT UE LT W CON INDICATIONS: Pain in left shoulder TECHNIQUE: After the intra-articular administration of 12 mL of dilute non-ionic contrast, 1-1.5 mm thick sections acquired from the acromioclavicular joint to the inferior scapula, with coronal and sagittal reformatting. COMPARISON: [facility], CR, XR SHOULDER LT MIN 2V, 12/06/2018, 11:48. FINDINGS: Image quality: Excellent. Bones: No fracture or dislocation. There is moderate glenohumeral joint degeneration and mild acromioclavicular joint degeneration. There is a 3 mm intra-articular body in the anteroinferior glenohumeral joint. Inferior glenoid appears irregular, suspicious for labral tear. There is superior migration of humeral head suspicious for chronic rotator cuff tendon tear. Soft tissues: No soft tissue mass IMPRESSION: 1. Degenerative joint disease, moderate in glenohumeral joint and mild in acromioclavicular joint. 2. A 3mm intra-articular body in the anteroinferior glenohumeral joint. 3. The inferior glenoid appears irregular suspicious for labral tear. 4. Superior migration of humeral head suspicious for chronic rotator cuff tendon tear Dictated by: Madyson Nagel M.D. on 12/16/2018 at 16:44 Approved by: Madyson Nagel M.D. on 12/17/2018 at 7:29
--- NOTE | 2018-12-16 | DI.RAD.S_ITS ---
PROCEDURE: FL SHOULDER INJECTION MR/CT LT INDICATIONS: Pain in left shoulder TECHNIQUE: The indications, alternatives, benefits, risks, and complications of the procedure were explained to the patient. Written informed consent was obtained and placed in the chart. The shoulder was examined fluoroscopically and a site for needle placement chosen for entry into the glenohumeral joint from an anterior approach. The skin was prepped and draped in a sterile fashion, and 1% lidocaine infiltrated from skin down to joint capsule. A spinal needle was inserted into the glenohumeral joint, and a small amount of iodinated contrast media injected to confirm intra-articular placement of the needle tip. This was followed by approximately 12 mL of iodinated contrast. The needle was removed and a dressing was applied. The patient was given postprocedural instructions and sent to the CT suite for imaging. FINDINGS: A single fluoroscopic spot image demonstrates intra-articular location of injected iodinated contrast. IMPRESSION: Successful fluoroscopically guided administration of iodinated contrast solution into the shoulder joint for CT arthrogram. Dictated by: Madyson Nagel M.D. on 12/16/2018 at 14:52 Approved by: Madyson Nagel M.D. on 12/16/2018 at 14:53
== END ==
PROVIDERS: Family Provider Family Medicine; PCP Family Medicine; Visit Provider Orthopaedic Surgery
DX: M25.512 Pain in left shoulder (principal); M19.012 Primary osteoarthritis, left shoulder; M24.012 Loose body in left shoulder
CPT/HCPCS: 23350; 73201; 77002

== ENCOUNTER 2019-07-27 09:45 | Outpatient (RCR) | payer MEDICARE, OTHER, SELFPAY ==
--- NOTE | 2018-07-26 17:35 | PT.OIE ---
Current Diagnoses Low back pain (07/26/18) Past Medical History (Last Reviewed 06/30/18 @ 13:01 by JONNY Ospina) ADHD (attention deficit hyperactivity disorder) (Chronic) Ankle pain (Chronic 2015) Asthma (Chronic 2011) Depression (Chronic 2014) Hypothyroidism (Chronic 1994) Rectocele (Chronic 2013) Shoulder pain (Chronic 1991) Urinary incontinence (Chronic 2013) Frozen shoulder (Resolved 1991) Frozen shoulder (Resolved 1992) Frozen shoulder (Resolved 1993) Hepatitis (Resolved) Hives (Resolved 2016) Past Surgical History (Last Reviewed 06/30/18 @ 13:01 by JONNY Ospina) Anesthesia (Resolved) History of breast augmentation (Resolved 1974) Status post colonoscopy (Resolved) Provider Visit Care Team Role Provider Type Tiny Henderson MD Family Provider Physician Primary Care Provider Specialty: Family Practice Address: [address] [place] [address] Email: [email or web address] JONNY Ospina Attending Provider Advanced Water Resource Specialist Specialty: Medical Address: [address] [place] [address] Email: Physical Therapy Initial Evaluation PT-OP-A Visit Information Start: 07/27/18 08:34 Freq: Status: Active Protocol: Document 07/26/18 17:30 EA (Rec: 07/27/18 09:34 EA [id number]) Out-Patient Physical Therapy Visit Information Visit Information Visit Type Initial Evaluation Visit Start Time 14:30 Visit Stop Time 15:15 Total Visit Minutes 45 Visit Number 1 Number of DIRECTOR OF PLACEMENT Visits 0 Evaluation Information Evaluation Date 07/26/18 Precautions Precautions Electronic device that controls bladder micturation that placed to right upper gluteals area PT-OP-B Current Condition Start: 07/27/18 08:34 Freq: Status: Active Protocol: Document 07/26/18 17:30 EA (Rec: 07/27/18 09:34 EA [id number]) Current Condition History of Current Condition Onset Date June/2018 Current Complaints Localized low back rated 6/10 History of Current Condition Present condition started just before the end of May 2018 with no known reasons. Patient reports she does regular sitted cardio machines exercises and followed videos yoga exercises that includes supine leg ups and other core exerises. Pt reports she does looks after two grand kids but aware about body mechanics. Patient denies any loss of function to both LE's; states pain is increased with long duration of standing, brushing teeth and washing dishes. She also reports difficulty of getting up in the bed due to aches and back sore that mostly in the morning; states pain decreased with help of heating pads. Patient denies any X-ray or any low back diagnostic imaging performed in the past. Prior Treatments and Tests Oral steroids for back pain: Had negative reactions Future Testing and Treatments Planned None identified. Treatment Goals Patient/Caregiver Goals Patient would like to eliminate low back pain so she could back to her usual daily activities with no limitation . 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 Current Functional Impairments (Reported) Functional Limitations- ADL's Independent with limitation to bending and lifting Functional Limitations- Mobility/Gait Indep with no AD but limited due to to increased in pain Functional Limitations- Work/School Limited teaching ability due to increased in pain PT-OP-C Subjective Start: 07/27/18 08:34 Freq: Status: Active Protocol: Document 07/26/18 17:30 EA (Rec: 07/27/18 09:34 EA [id number]) OP-PT Subjective Patient Comments Patient Comments Patient c/o difficulty of coughing, brushing, washing dishes, long duration of standing, walking due to localized back pain rated 6/10 . Denies tingling or numbness to BLE's. Patient Reported Progress Same Patient Questionnaires Oswestry Low Back Index Oswestry Score 34/50 Oswestry Impairment 60 to 79% Impaired (Score 60- 79) OP-PT Pain Assessment Location Bilateral Lower Posterior Back Pain Location Details Paralumbars Intensity 6 Description Aching Tender Tightness Frequency Intermittent Pain Behaviors Pain Behaviors Crying Guarding Wincing PT-OP-G Mobility & Gait Start: 07/27/18 08:34 Freq: Status: Active Protocol: Document 07/26/18 17:30 EA (Rec: 07/27/18 09:34 EA [id number]) OP Gait Assessment Comments Gait Comments No gait deviation noted Stair Climbing Evaluation Comments Stair Climbing Comments No stairs difficulty PT-OP-J Posture/Palpation/Skin Start: 07/27/18 08:34 Freq: Status: Active Protocol: Document 07/26/18 17:30 EA (Rec: 07/27/18 09:34 EA [id number]) Posture Evaluation Comments Posture Comments Good general posture with slight increased in lumbar lordosis Palpation Assessment Location One Palpation Location Both paralumbars, QL Palpation Findings Soft Tissue Tightness Muscle Guarding Tenderness Skin Assessment Other Assessments Skin Assessment Comments Palpable electronic device placed to R upper gluteal area PT-OP-K Range of Motion Start: 07/27/18 08:34 Freq: Status: Active Protocol: Document 07/26/18 17:30 EA (Rec: 07/27/18 09:34 EA [id number]) Lumbar Spine Range of Motion Lumbar Spine Active Percentage Testing Position Supine Flexion 70 Extension 40 Rotation Left 80 Rotation Right 80 Lateral Flexion Left 65 Lateral Flexion Right 60 ROM Limitations Soft Tissue Tightness Pain Comments localized Pain increased with Extension> flexion> side flexion Hip Goniometric Range of Motion Hip Measured in Degrees Left Active Hip ROM WFL Yes Right Hip ROM WFL Yes PT-OP-L Special Tests Start: 07/27/18 08:34 Freq: Status: Active Protocol: Document 07/26/18 17:30 EA (Rec: 07/27/18 09:34 EA [id number]) Special Tests Lumbar Spine Special Tests Other- 1 Test Results Neg Gaenlen's Slump Test Results negative Straight Leg Raise Test Results negative Compression Test Results negative PT-OP-M Strength Start: 07/27/18 08:34 Freq: Status: Active Protocol: Document 07/26/18 17:30 EA (Rec: 07/27/18 09:34 EA [id number]) Hip Strength Hip Manual Muscle Testing Right Reason Not Measured WFL Left Reason Not Measured WFL PT-OP-Q Treatments Start: 07/27/18 08:34 Freq: Status: Active Protocol: Document 07/26/18 17:30 EA (Rec: 07/27/18 09:34 EA [id number]) Manual Therapy Treatment Soft Tissue Mobilization 3 Body Location Paralumbars, Both QL Mobilization Type Myofascial Release Rolling Sustained Pressure Intensity/Depth Moderate Body Position Sitting Comments sitting leanig fwd to chana table PT-OP-R Modalities Start: 07/27/18 08:34 Freq: Status: Active Protocol: Document 07/26/18 17:30 EA (Rec: 07/27/18 09:34 EA [id number]) Electric Stimulation Electric Stimulation Interferential Current (IFC) Body Location Paralumbars Duration (Minutes) 15 Intensity 15 Patient Position Sitting Combined With Heat/Cold Hot Pack Comments Pre-cautions: Electrodes not directly place to right upper gluteal electronic devices. PT-OP-T Assessment and Plan Start: 07/27/18 08:34 Freq: Status: Active Protocol: Document 07/26/18 17:30 EA (Rec: 07/27/18 09:34 EA [id number]) Physical Therapy Assessment Rehab Potential Rehabilitation Potential Good Evaluation Complexity Number of Personal Factors/Comorbidities 1-2 Number of Body Systems Impaired 1-2 Clinical Presentation at Evaluation Evolving Impairments Impairments Activity Tolerance Pain Posture ROM Soft Tissue Mobility Goals Four Impairment No HEP in place Coal Pulverizer Operator Goal (LTG) Patient will exhibit independent safe home exercise program LTG Duration 4 wks Three Impairment Impaired sitting tolerance with less than 10 mins Mcfp Goal (LTG) Patient will sit more than 1 hour with no increase in symptoms LTG Duration 4 wks Two Impairment Impaired Lumbosacral ROM Coal Pulverizer Operator Goal (LTG) Patient will exhibits near functional range lumbosacral ROM to enhance functional mobility without limitation LTG Duration 4 wks One Impairment Oswetry low back impairement scale of 34/50 Mcfp Goal (LTG) Patient will have Oswetry low back impairment scale of < 15/ 50 LTG Duration 4 wks Assessment Summary Assessment Pleasant 72 y/o F patient with a referring diagnosis of low back pain. Today patient exhibits increased pain with most plane of motion to lumbosacral joints during assessment. Palpation reveals tenderness of 2/4 with tigntness to paralumbars and quadratus lumborum bilaterally . Special tests reveals negative with SI joints and nerve root involvement. My impressions suggests multilevel DJD manifestation with slight muscular imbalance due to slight impaired lumbar posture. History taken with her fitness lifestyle also may suggest muscular strains to lumbar region due to poor exercise program. Patient would benefit with skilled PT to address the aforementioned issues. Physical Therapy Plan Frequency and Duration Frequency of Treatment 2x/Week Duration of Treatment 8 Plan of Care Start Date 07/26/18 Plan of Care End Date 09/20/18 Therapeutic Interventions Therapeutic Interventions Home Exercise Program Joint Mobilizations Manual Therapy Patient/Caregiver Education Self-Care/Home Management Soft Tissue Mobilization Therapeutic Exercises Next Visit Focus/Plan Next Note Type Treatment Note Next Visit Plan Provide HEP images
--- NOTE | 2018-07-26 17:35 | PT.OPPOC ---
Current Diagnoses Low back pain (07/26/18) Provider Visit Care Team Role Provider Type Tiny Henderson MD Family Provider Physician Primary Care Provider Specialty: Family Practice Address: [address] [place] [address], [facility] Email: [email or web address] JONNY Ospina Attending Provider Advanced Environmental Compliance Specialist Specialty: Medical Address: [address] [place] [address], [id number] Email: Plan Of Care PT-OP-T Assessment and Plan Start: 07/27/18 08:34 Freq: Status: Active Protocol: Document 07/26/18 17:30 EA (Rec: 07/27/18 09:34 EA [id number]) Physical Therapy Assessment Rehab Potential Rehabilitation Potential Good Evaluation Complexity Number of Personal Factors/Comorbidities 1-2 Number of Body Systems Impaired 1-2 Clinical Presentation at Evaluation Evolving Impairments Impairments Activity Tolerance Pain Posture ROM Soft Tissue Mobility Goals Four Impairment No HEP in place Penitentiary Goal (LTG) Patient will exhibit independent safe home exercise program LTG Duration 4 wks Three Impairment Impaired sitting tolerance with less than 10 mins Penitentiary Goal (LTG) Patient will sit more than 1 hour with no increase in symptoms LTG Duration 4 wks Two Impairment Impaired Lumbosacral ROM General Superintendent Goal (LTG) Patient will exhibits near functional range lumbosacral ROM to enhance functional mobility without limitation LTG Duration 4 wks One Impairment Oswestry low back impairment scale of 34/50 Penitentiary Goal (LTG) Patient will have Oswetry low back impairment scale of < 15/ 50 LTG Duration 4 wks Assessment Summary Assessment Pleasant 72 y/o F patient with a referring diagnosis of low back pain. Today patient exhibits increased pain with most plane of motion to lumbosacral joints during assessment. Palpation reveals tenderness of 2/4 with tigntness to paralumbars and quadratus lumborum bilaterally . Special tests reveals negative with SI joints and nerve root involvement. My impressions suggests multilevel DJD manifestation with slight muscular imbalance due to slight impaired lumbar posture. History taken with her fitness lifestyle also may suggest muscular strains to lumbar region due to poor exercise program. Patient would benefit with skilled PT to address the aforementioned issues. Physical Therapy Plan Frequency and Duration Frequency of Treatment 2x/Week Duration of Treatment 8 Plan of Care Start Date 07/26/18 Plan of Care End Date 09/20/18 Therapeutic Interventions Therapeutic Interventions Home Exercise Program Joint Mobilizations Manual Therapy Patient/Caregiver Education Self-Care/Home Management Soft Tissue Mobilization Therapeutic Exercises Next Visit Focus/Plan Next Note Type Treatment Note Next Visit Plan Provide HEP images Plan of Care Dates Plan of Care Start Date 07/26/18 Plan of Care End Date 09/20/18 Please Sign and Return: I have reviewed this Plan of Care and certify that the skilled therapy services above are required to meet the patient?s needs. Physician Signature Date Printed Name and Credentials Clinical Instructor Signature Printed Name and Credentials
--- NOTE | 2018-07-30 16:07 | PT.OTN ---
Current Diagnoses Low back pain (07/30/18) Physical Therapy Treatment Note PT-OP-A Visit Information Start: 07/27/18 08:34 Freq: Status: Active Protocol: Document 07/30/18 15:59 [facility] (Rec: 07/30/18 16:07 [facility] [email or web address]) Out-Patient Physical Therapy Visit Information Visit Information Visit Type Treatment Note Visit Start Time 13:00 Visit Stop Time 13:55 Total Visit Minutes 55 Visit Number 2 Number of KNEE BOLTER Visits 0 PT-OP-B Current Condition Start: 07/27/18 08:34 Freq: Status: Active Protocol: Document 07/26/18 17:30 EA (Rec: 07/27/18 09:34 EA [id number]) Current Condition History of Current Condition Onset Date June/2018 Current Complaints Localized low back rated 6/10 History of Current Condition Present condition started just before the end of May 2018 with no known reasons. Patient reports she does regular sitted cardio machines exercises and follow videos yoga exercises that includes supine leg ups and other core exerises. Pt reports she does looks after two grand kids but aware about body mechanics. Patient denies any loss of function to both LE's; states pain is increased with long duration of standing, brushing teeth and washing dishes. She also reports difficulty of getting up in the bed due to aches and back sore that mostly in the morning; states pain decreased with help of heating pads. Patient denies any X-ray or any low back diagnostic imaging performed in the past. Prior Treatments and Tests Oral steroids for back pain: Had negative reactions Future Testing and Treatments Planned None identified. Treatment Goals Patient/Caregiver Goals Patient would like to eliminate low back pain so she could back to her usual daily activities with no limitation . 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 Current Functional Impairments (Reported) Functional Limitations- ADL's Independent with limitation to bending and lifting Functional Limitations- Mobility/Gait Indep with no AD but limited due to to increased in pain Functional Limitations- Work/School Limited teaching ability due to increased in pain PT-OP-C Subjective Start: 07/27/18 08:34 Freq: Status: Active Protocol: Document 07/30/18 15:59 [facility] (Rec: 07/30/18 16:07 [facility] [email or web address]) OP-PT Subjective Patient Comments Patient Comments Pt reports back pain has changed and is less in buttocks and more in SI region . PT-OP-G Mobility & Gait Start: 07/27/18 08:34 Freq: Status: Active Protocol: Document 07/26/18 17:30 EA (Rec: 07/27/18 09:34 EA [id number]) OP Gait Assessment Comments Gait Comments No gait deviation noted Stair Climbing Evaluation Comments Stair Climbing Comments No stairs difficulty PT-OP-J Posture/Palpation/Skin Start: 07/27/18 08:34 Freq: Status: Active Protocol: Document 07/26/18 17:30 EA (Rec: 07/27/18 09:34 EA [id number]) Posture Evaluation Comments Posture Comments Good general posture with slight increased in lumbar lordosis Palpation Assessment Location One Palpation Location Both paralumbars, QL Palpation Findings Soft Tissue Tightness Muscle Guarding Tenderness Skin Assessment Other Assessments Skin Assessment Comments Palpable electronic device placed to R upper gluteal area PT-OP-K Range of Motion Start: 07/27/18 08:34 Freq: Status: Active Protocol: Document 07/26/18 17:30 EA (Rec: 07/27/18 09:34 EA [id number]) Lumbar Spine Range of Motion Lumbar Spine Active Percentage Testing Position Supine Flexion 70 Extension 40 Rotation Left 80 Rotation Right 80 Lateral Flexion Left 65 Lateral Flexion Right 60 ROM Limitations Soft Tissue Tightness Pain Comments localized Pain increased with Extension> flexion> side flexion Hip Goniometric Range of Motion Hip Measured in Degrees Left Active Hip ROM WFL Yes Right Hip ROM WFL Yes PT-OP-L Special Tests Start: 07/27/18 08:34 Freq: Status: Active Protocol: Document 07/26/18 17:30 EA (Rec: 07/27/18 09:34 EA [id number]) Special Tests Lumbar Spine Special Tests Other- 1 Test Results Neg Gaenlen's Slump Test Results negative Straight Leg Raise Test Results negative Compression Test Results negative PT-OP-M Strength Start: 07/27/18 08:34 Freq: Status: Active Protocol: Document 07/26/18 17:30 EA (Rec: 07/27/18 09:34 EA [id number]) Hip Strength Hip Manual Muscle Testing Right Reason Not Measured WFL Left Reason Not Measured WFL PT-OP-Q Treatments Start: 07/27/18 08:34 Freq: Status: Active Protocol: Document 07/30/18 15:59 [facility] (Rec: 07/30/18 16:07 [facility] [email or web address]) Therapeutic Exercises Supine Exercises pelvic tilt Supine Exercise Name post pelvic tilt Reps/Minutes 3 Comments stopped d/t pain 3 Supine Exercise Name SKTC & DKTC Reps/Minutes 30 sec holds 2 Supine Exercise Name hip abd Equipment Used L3 Reps/Minutes 15 Comments focus on core contraction 1 Supine Exercise Name lower trunk rotation Reps/Minutes 10 Comments focus on core & staying in comfortable range Standing Exercises 7 Standing Exercise Name SKTC stretch Side bilateral Reps/Minutes 30 sec Other Exercises quad arm raise Other Exercise Name UE flex Comments stopped after 3 reps d/t pain Darian pose Other Exercise Name darian pose Reps/Minutes 10 sec hold cat/camel Other Exercise Name cat/camel Reps/Minutes 10 Comments focus on painfree range Manual Therapy Treatment Soft Tissue Mobilization 3 Body Location Paralumbars, Both QL Mobilization Type Myofascial Release Rolling Sustained Pressure Intensity/Depth Moderate Body Position Sidelying Comments sitting leanig fwd to chana table Self-Care/Home Management Treatment Education Other Education s/l sleeping position, LB anatomy & how exercise ( strengthening & stretching can help) PT-OP-R Modalities Start: 07/27/18 08:34 Freq: Status: Active Protocol: Document 07/30/18 15:59 [facility] (Rec: 07/30/18 16:07 [facility] [email or web address]) Electric Stimulation Electric Stimulation Interferential Current (IFC) Body Location Paralumbars Duration (Minutes) 15 Intensity 15 Patient Position Sitting Combined With Heat/Cold Hot Pack Comments Pre-cautions: Electrodes not directly place to right upper gluteal electronic devices. PT-OP-T Assessment and Plan Start: 07/27/18 08:34 Freq: Status: Active Protocol: Document 07/30/18 15:59 [facility] (Rec: 07/30/18 16:07 [facility] [email or web address]) Physical Therapy Assessment Goals Four Impairment No HEP in place Half-Way Goal (LTG) Patient will exhibit independent safe home exercise program LTG Duration 4 wks Three Impairment Impaired sitting tolerance with less than 10 mins Half-Way Goal (LTG) Patient will sit more than 1 hour with no increase in symptoms LTG Duration 4 wks Two Impairment Impaired Lumbosacral ROM Half-Way Goal (LTG) Patient will exhibits near functional range lumbosacral ROM to enhance functional mobility without limitation LTG Duration 4 wks One Impairment Oswetry low back impairement scale of 34/50 Knot Picker [employer]oth Goal (LTG) Patient will have Oswetry low back impairment scale of < 15/ 50 LTG Duration 4 wks Assessment Summary Assessment Pt required cueing with exercises to stay in comfortable range and to not overdo exercises if they are painful. Pt felt more relieved with further anatomy discussion and how exercise can help if she has multilevel degeneration. Physical Therapy Plan Frequency and Duration Frequency of Treatment 2x/Week Duration of Treatment 8 Plan of Care Start Date 07/26/18 Plan of Care End Date 09/20/18 Next Visit Focus/Plan Next Note Type Treatment Note Next Visit Plan re-check HEP performance, progress core staiblity as tolerated
--- NOTE | 2018-08-03 17:28 | PT.OTN ---
Current Diagnoses Low back pain (08/03/18) Physical Therapy Treatment Note PT-OP-A Visit Information Start: 07/27/18 08:34 Freq: Status: Active Protocol: Document 08/03/18 17:19 [facility] (Rec: 08/03/18 17:28 [facility] [email or web address]) Out-Patient Physical Therapy Visit Information Visit Information Visit Type Treatment Note Visit Start Time 13:00 Visit Stop Time 13:55 Total Visit Minutes 55 Visit Number 3 Number of FINANCIAL SALES PROFESSIONAL Visits 0 Evaluation Information Evaluation Date 07/26/18 PT-OP-B Current Condition Start: 07/27/18 08:34 Freq: Status: Active Protocol: Document 07/26/18 17:30 EA (Rec: 07/27/18 09:34 EA [id number]) Current Condition History of Current Condition Onset Date June/2018 Current Complaints Localized low back rated 6/10 History of Current Condition Present condition started just before the end of May 2018 with no known reasons. Patient reports she does regular sitted cardio machines exercises and follow videos yoga exercises that includes supine leg ups and other core exerises. Pt reports she does looks after two grand kids but aware about body mechanics. Patient denies any loss of function to both LE's; states pain is increased with long duration of standing, brushing teeth and washing dishes. She also reports difficulty of getting up in the bed due to aches and back sore that mostly in the morning; states pain decreased with help of heating pads. Patient denies any X-ray or any low back diagnostic imaging performed in the past. Prior Treatments and Tests Oral steroids for back pain: Had negative reactions Future Testing and Treatments Planned None identified. Treatment Goals Patient/Caregiver Goals Patient would like to eliminate low back pain so she could back to her usual daily activities with no limitation . 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 Current Functional Impairments (Reported) Functional Limitations- ADL's Independent with limitation to bending and lifting Functional Limitations- Mobility/Gait Indep with no AD but limited due to to increased in pain Functional Limitations- Work/School Limited teaching ability due to increased in pain PT-OP-C Subjective Start: 07/27/18 08:34 Freq: Status: Active Protocol: Document 08/03/18 17:19 [facility] (Rec: 08/03/18 17:28 [facility] [email or web address]) OP-PT Subjective Patient Comments Patient Comments Subha notes she has been doing all her stretching and then she went for a walk on the beach with her grandkids. After this walk she became very sore in her right R LB PT-OP-G Mobility & Gait Start: 07/27/18 08:34 Freq: Status: Active Protocol: Document 07/26/18 17:30 EA (Rec: 07/27/18 09:34 EA [id number]) OP Gait Assessment Comments Gait Comments No gait deviation noted Stair Climbing Evaluation Comments Stair Climbing Comments No stairs difficulty PT-OP-J Posture/Palpation/Skin Start: 07/27/18 08:34 Freq: Status: Active Protocol: Document 07/26/18 17:30 EA (Rec: 07/27/18 09:34 EA [id number]) Posture Evaluation Comments Posture Comments Good general posture with slight increased in lumbar lordosis Palpation Assessment Location One Palpation Location Both paralumbars, QL Palpation Findings Soft Tissue Tightness Muscle Guarding Tenderness Skin Assessment Other Assessments Skin Assessment Comments Palpable electronic device placed to R upper gluteal area PT-OP-K Range of Motion Start: 07/27/18 08:34 Freq: Status: Active Protocol: Document 07/26/18 17:30 EA (Rec: 07/27/18 09:34 EA [id number]) Lumbar Spine Range of Motion Lumbar Spine Active Percentage Testing Position Supine Flexion 70 Extension 40 Rotation Left 80 Rotation Right 80 Lateral Flexion Left 65 Lateral Flexion Right 60 ROM Limitations Soft Tissue Tightness Pain Comments localized Pain increased with Extension> flexion> side flexion Hip Goniometric Range of Motion Hip Measured in Degrees Left Active Hip ROM WFL Yes Right Hip ROM WFL Yes PT-OP-L Special Tests Start: 07/27/18 08:34 Freq: Status: Active Protocol: Document 07/26/18 17:30 [facility] (Rec: 07/27/18 09:34 EA [id number]) Special Tests Lumbar Spine Special Tests Other- 1 Test Results Neg Gaenlen's Slump Test Results negative Straight Leg Raise Test Results negative Compression Test Results negative PT-OP-M Strength Start: 07/27/18 08:34 Freq: Status: Active Protocol: Document 07/26/18 17:30 EA (Rec: 07/27/18 09:34 EA [id number]) Hip Strength Hip Manual Muscle Testing Right Reason Not Measured WFL Left Reason Not Measured WFL PT-OP-Q Treatments Start: 07/27/18 08:34 Freq: Status: Active Protocol: Document 08/03/18 17:19 [facility] (Rec: 08/03/18 17:28 [facility] [email or web address]) Therapeutic Exercises Supine Exercises 4 Supine Exercise Name TA and pelvic floor facilitation Reps/Minutes x 10 reps 3 Supine Exercise Name SKTC & DKTC Reps/Minutes 30 sec holds 1 Supine Exercise Name lower trunk rotation Reps/Minutes 10 Comments focus on core & staying in comfortable range Other Exercises 1 Other Exercise Name quadraped TA facilitation with exhale Comments pt taught to inhale and relax her upper abdominals Dana pose Other Exercise Name dana pose Reps/Minutes 10 sec hold cat/camel Other Exercise Name cat/camel Reps/Minutes 10 Comments focus on painfree range Manual Therapy Treatment Soft Tissue Mobilization 3 Body Location Paralumbars, Both QL Mobilization Type Myofascial Release Rolling Sustained Pressure Intensity/Depth Moderate Body Position Prone Comments over body pillow Joint Mobilizations 1 Joint MET right anteriorly rotated innominant PT-OP-R Modalities Start: 07/27/18 08:34 Freq: Status: Active Protocol: Document 07/30/18 15:59 [facility] (Rec: 07/30/18 16:07 [facility] [email or web address]) Electric Stimulation Electric Stimulation Interferential Current (IFC) Body Location Paralumbars Duration (Minutes) 15 Intensity 15 Patient Position Sitting Combined With Heat/Cold Hot Pack Comments Pre-cautions: Electrodes not directly place to right upper gluteal electronic devices. PT-OP-T Assessment and Plan Start: 07/27/18 08:34 Freq: Status: Active Protocol: Document 08/03/18 17:19 [facility] (Rec: 08/03/18 17:28 [facility] [email or web address]) Physical Therapy Assessment Assessment Summary Assessment Subha was guarded on the right more than left, she tested positive for right anteriorly rotated innominant. This may have been from walking on the rocks at the beach or uneven surfaces. I corrected this today and then worked on relaxing her right lumbar paraspinal tightness. We worked on her core in quadraped as she had mentioned that she doesn't feel she can find her core. She was able to facilitate it so we also worked in supine. She would benefit from continued lower abdominal and pelvic floor stabilization for her pelvis. She is very dominant in her obliques. Physical Therapy Plan Frequency and Duration Frequency of Treatment 2x/Week Duration of Treatment 8 Plan of Care Start Date 07/26/18 Plan of Care End Date 09/20/18 Therapeutic Interventions Therapeutic Interventions Home Exercise Program Joint Mobilizations Manual Therapy Patient/Caregiver Education Self-Care/Home Management Soft Tissue Mobilization Therapeutic Exercises
--- NOTE | 2018-08-12 17:24 | PT.OTN ---
Current Diagnoses Low back pain (08/10/18) Physical Therapy Treatment Note PT-OP-A Visit Information Start: 07/27/18 08:34 Freq: Status: Active Protocol: Document 08/10/18 14:30 [facility] (Rec: 08/12/18 17:23 [facility] [email or web address]) Out-Patient Physical Therapy Visit Information Visit Information Visit Type Treatment Note Visit Start Time 14:30 Visit Stop Time 15:15 Total Visit Minutes 45 Visit Number 4 Number of BOBJ DEVELOPER Visits 0 PT-OP-B Current Condition Start: 07/27/18 08:34 Freq: Status: Active Protocol: Document 07/26/18 17:30 EA (Rec: 07/27/18 09:34 EA [id number]) Current Condition History of Current Condition Onset Date June/2018 Current Complaints Localized low back rated 6/10 History of Current Condition Present condition started just before the end of May 2018 with no known reasons. Patient reports she does regular sitted cardio machines exercises and follow videos yoga exercises that includes supine leg ups and other core exerises. Pt reports she does looks after two grand kids but aware about body mechanics. Patient denies any loss of function to both LE's; states pain is increased with long duration of standing, brushing teeth and washing dishes. She also reports difficulty of getting up in the bed due to aches and back sore that mostly in the morning; states pain decreased with help of heating pads. Patient denies any X-ray or any low back diagnostic imaging performed in the past. Prior Treatments and Tests Oral steroids for back pain: Had negative reactions Future Testing and Treatments Planned None identified. Treatment Goals Patient/Caregiver Goals Patient would like to eliminate low back pain so she could back to her usual daily activities with no limitation . 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 Current Functional Impairments (Reported) Functional Limitations- ADL's Independent with limitation to bending and lifting Functional Limitations- Mobility/Gait Indep with no AD but limited due to to increased in pain Functional Limitations- Work/School Limited teaching ability due to increased in pain PT-OP-C Subjective Start: 07/27/18 08:34 Freq: Status: Active Protocol: Document 08/10/18 14:30 [facility] (Rec: 08/12/18 17:23 [facility] [email or web address]) OP-PT Subjective Patient Comments Patient Comments Subha reports she has been working on her stretches, still feeling tight in her low back PT-OP-G Mobility & Gait Start: 07/27/18 08:34 Freq: Status: Active Protocol: Document 07/26/18 17:30 EA (Rec: 07/27/18 09:34 EA [id number]) OP Gait Assessment Comments Gait Comments No gait deviation noted Stair Climbing Evaluation Comments Stair Climbing Comments No stairs difficulty PT-OP-J Posture/Palpation/Skin Start: 07/27/18 08:34 Freq: Status: Active Protocol: Document 07/26/18 17:30 EA (Rec: 07/27/18 09:34 EA [id number]) Posture Evaluation Comments Posture Comments Good general posture with slight increased in lumbar lordosis Palpation Assessment Location One Palpation Location Both paralumbars, QL Palpation Findings Soft Tissue Tightness Muscle Guarding Tenderness Skin Assessment Other Assessments Skin Assessment Comments Palpable electronic device placed to R upper gluteal area PT-OP-K Range of Motion Start: 07/27/18 08:34 Freq: Status: Active Protocol: Document 07/26/18 17:30 EA (Rec: 07/27/18 09:34 EA [id number]) Lumbar Spine Range of Motion Lumbar Spine Active Percentage Testing Position Supine Flexion 70 Extension 40 Rotation Left 80 Rotation Right 80 Lateral Flexion Left 65 Lateral Flexion Right 60 ROM Limitations Soft Tissue Tightness Pain Comments localized Pain increased with Extension> flexion> side flexion Hip Goniometric Range of Motion Hip Measured in Degrees Left Active Hip ROM WFL Yes Right Hip ROM WFL Yes PT-OP-L Special Tests Start: 07/27/18 08:34 Freq: Status: Active Protocol: Document 07/26/18 17:30 EA (Rec: 07/27/18 09:34 EA [id number]) Special Tests Lumbar Spine Special Tests Other- 1 Test Results Neg Gaenlen's Slump Test Results negative Straight Leg Raise Test Results negative Compression Test Results negative PT-OP-M Strength Start: 07/27/18 08:34 Freq: Status: Active Protocol: Document 07/26/18 17:30 EA (Rec: 07/27/18 09:34 EA [id number]) Hip Strength Hip Manual Muscle Testing Right Reason Not Measured WFL Left Reason Not Measured WFL PT-OP-Q Treatments Start: 07/27/18 08:34 Freq: Status: Active Protocol: Document 08/10/18 14:30 [facility] (Rec: 08/12/18 17:23 [facility] [email or web address]) Cardio Equipment Recumbent Elliptical (Biodex) Duration (Minutes) 5 Therapeutic Exercises Supine Exercises 4 Supine Exercise Name TA and pelvic floor facilitation Reps/Minutes x 10 reps pelvic tilt Supine Exercise Name post pelvic tilt Reps/Minutes 3 Comments stopped d/t pain 3 Supine Exercise Name SKTC & DKTC Reps/Minutes 30 sec holds 1 Supine Exercise Name lower trunk rotation Reps/Minutes 10 Comments focus on core & staying in comfortable range Other Exercises cat/camel Other Exercise Name cat/camel Reps/Minutes 10 Comments focus on painfree range Manual Therapy Treatment Soft Tissue Mobilization 3 Body Location Paralumbars, Both QL Mobilization Type Myofascial Release Rolling Sustained Pressure Intensity/Depth Moderate Body Position Prone Comments over body pillow PT-OP-R Modalities Start: 07/27/18 08:34 Freq: Status: Active Protocol: Document 07/30/18 15:59 [facility] (Rec: 07/30/18 16:07 [facility] [email or web address]) Electric Stimulation Electric Stimulation Interferential Current (IFC) Body Location Paralumbars Duration (Minutes) 15 Intensity 15 Patient Position Sitting Combined With Heat/Cold Hot Pack Comments Pre-cautions: Electrodes not directly place to right upper gluteal electronic devices. PT-OP-T Assessment and Plan Start: 07/27/18 08:34 Freq: Status: Active Protocol: Document 08/10/18 14:30 [facility] (Rec: 08/12/18 17:23 [facility] [id number]) Physical Therapy Assessment Assessment Summary Assessment needs continual work on SI stabilization, leg length was equal today and there was decreased pain over the left PSIS Physical Therapy Plan Frequency and Duration Frequency of Treatment 2x/Week Duration of Treatment 8 Plan of Care Start Date 07/26/18 Plan of Care End Date 09/20/18 Therapeutic Interventions Therapeutic Interventions Home Exercise Program Joint Mobilizations Manual Therapy Patient/Caregiver Education Self-Care/Home Management Soft Tissue Mobilization Therapeutic Exercises Next Visit Focus/Plan Next Note Type Treatment Note Next Visit Plan continue progressing stabilization exercises and stretches for the low back, manual work to relieve muscle tension and tightness
--- NOTE | 2018-08-18 12:15 | PT.OTN ---
Current Diagnoses Low back pain (08/18/18) Physical Therapy Treatment Note PT-OP-A Visit Information Start: 07/27/18 08:34 Freq: Status: Active Protocol: Document 08/18/18 12:09 [facility] (Rec: 08/18/18 12:15 [facility] [id number]) Out-Patient Physical Therapy Visit Information Visit Information Visit Type Treatment Note Visit Start Time 11:15 Visit Stop Time 12:00 Total Visit Minutes 45 Visit Number 5 Number of DETECTIVE CHIEF Visits 0 Evaluation Information Evaluation Date 07/26/18 PT-OP-B Current Condition Start: 07/27/18 08:34 Freq: Status: Active Protocol: Document 07/26/18 17:30 EA (Rec: 07/27/18 09:34 EA [id number]) Current Condition History of Current Condition Onset Date June/2018 Current Complaints Localized low back rated 6/10 History of Current Condition Present condition started just before the end of May 2018 with no known reasons. Patient reports she does regular sitted cardio machines exercises and follow videos yoga exercises that includes supine leg ups and other core exerises. Pt reports she does looks after two grand kids but aware about body mechanics. Patient denies any loss of function to both LE's; states pain is increased with long duration of standing, brushing teeth and washing dishes. She also reports difficulty of getting up in the bed due to aches and back sore that mostly in the morning; states pain decreased with help of heating pads. Patient denies any X-ray or any low back diagnostic imaging performed in the past. Prior Treatments and Tests Oral steroids for back pain: Had negative reactions Future Testing and Treatments Planned None identified. Treatment Goals Patient/Caregiver Goals Patient would like to eliminate low back pain so she could back to her usual daily activities with no limitation . 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 Current Functional Impairments (Reported) Functional Limitations- ADL's Independent with limitation to bending and lifting Functional Limitations- Mobility/Gait Indep with no AD but limited due to to increased in pain Functional Limitations- Work/School Limited teaching ability due to increased in pain PT-OP-C Subjective Start: 07/27/18 08:34 Freq: Status: Active Protocol: Document 08/18/18 12:09 [facility] (Rec: 08/18/18 12:15 [facility] [id number]) OP-PT Subjective Patient Comments Patient Comments Subha reports she has been playing with her grandkids in the snow and her back feels very tight today. She reports it is hard to breath PT-OP-G Mobility & Gait Start: 07/27/18 08:34 Freq: Status: Active Protocol: Document 07/26/18 17:30 EA (Rec: 07/27/18 09:34 EA [id number]) OP Gait Assessment Comments Gait Comments No gait deviation noted Stair Climbing Evaluation Comments Stair Climbing Comments No stairs difficulty PT-OP-J Posture/Palpation/Skin Start: 07/27/18 08:34 Freq: Status: Active Protocol: Document 07/26/18 17:30 EA (Rec: 07/27/18 09:34 EA [id number]) Posture Evaluation Comments Posture Comments Good general posture with slight increased in lumbar lordosis Palpation Assessment Location One Palpation Location Both paralumbars, QL Palpation Findings Soft Tissue Tightness Muscle Guarding Tenderness Skin Assessment Other Assessments Skin Assessment Comments Palpable electronic device placed to R upper gluteal area PT-OP-K Range of Motion Start: 07/27/18 08:34 Freq: Status: Active Protocol: Document 07/26/18 17:30 EA (Rec: 07/27/18 09:34 EA [id number]) Lumbar Spine Range of Motion Lumbar Spine Active Percentage Testing Position Supine Flexion 70 Extension 40 Rotation Left 80 Rotation Right 80 Lateral Flexion Left 65 Lateral Flexion Right 60 ROM Limitations Soft Tissue Tightness Pain Comments localized Pain increased with Extension> flexion> side flexion Hip Goniometric Range of Motion Hip Measured in Degrees Left Active Hip ROM WFL Yes Right Hip ROM WFL Yes PT-OP-L Special Tests Start: 07/27/18 08:34 Freq: Status: Active Protocol: Document 07/26/18 17:30 EA (Rec: 07/27/18 09:34 EA [id number]) Special Tests Lumbar Spine Special Tests Other- 1 Test Results Neg Gaenlen's Slump Test Results negative Straight Leg Raise Test Results negative Compression Test Results negative PT-OP-M Strength Start: 07/27/18 08:34 Freq: Status: Active Protocol: Document 07/26/18 17:30 EA (Rec: 07/27/18 09:34 EA [id number]) Hip Strength Hip Manual Muscle Testing Right Reason Not Measured WFL Left Reason Not Measured WFL PT-OP-Q Treatments Start: 07/27/18 08:34 Freq: Status: Active Protocol: Document 08/18/18 12:09 [facility] (Rec: 08/18/18 12:15 [facility] [id number]) Cardio Equipment Recumbent Elliptical (Biodex) Duration (Minutes) 5 Therapeutic Exercises Supine Exercises 7 Supine Exercise Name ball rolls for low back flexion Reps/Minutes x 20 6 Supine Exercise Name iliopsoas stretch off the side of the bed 5 Supine Exercise Name hamstring stretch, piriformis stretch 4 Supine Exercise Name TA and pelvic floor facilitation Reps/Minutes x 10 reps pelvic tilt Supine Exercise Name post pelvic tilt Reps/Minutes 3 Comments stopped d/t pain 3 Supine Exercise Name SKTC & DKTC Reps/Minutes 30 sec holds 1 Supine Exercise Name lower trunk rotation Reps/Minutes 10 Comments focus on core & staying in comfortable range Manual Therapy Treatment Soft Tissue Mobilization 3 Body Location Paralumbars, Both QL Mobilization Type Myofascial Release Rolling Sustained Pressure Intensity/Depth Moderate Body Position Prone Comments over body pillow Joint Mobilizations 1 Joint MET right anteriorly rotated innominant PT-OP-R Modalities Start: 07/27/18 08:34 Freq: Status: Active Protocol: Document 07/30/18 15:59 LR (Rec: 07/30/18 16:07 [facility] [id number]) Electric Stimulation Electric Stimulation Interferential Current (IFC) Body Location Paralumbars Duration (Minutes) 15 Intensity 15 Patient Position Sitting Combined With Heat/Cold Hot Pack Comments Pre-cautions: Electrodes not directly place to right upper gluteal electronic devices. PT-OP-T Assessment and Plan Start: 07/27/18 08:34 Freq: Status: Active Protocol: Document 08/18/18 12:09 [facility] (Rec: 08/18/18 12:15 [facility] [id number]) Physical Therapy Assessment Assessment Summary Assessment muscle guarding today due to increased activity. Subha is going to the pool and working on her exercises. By the time she finished PT her muscle spasms were much decreased. Physical Therapy Plan Frequency and Duration Frequency of Treatment 2x/Week Duration of Treatment 8 Plan of Care Start Date 07/26/18 Plan of Care End Date 09/20/18 Therapeutic Interventions Therapeutic Interventions Home Exercise Program Joint Mobilizations Manual Therapy Patient/Caregiver Education Self-Care/Home Management Soft Tissue Mobilization Therapeutic Exercises Next Visit Focus/Plan Next Note Type Treatment Note Next Visit Plan continue progressing stabilization exercises and stretches for the low back, manual work to relieve muscle tension and tightness
--- NOTE | 2018-08-20 15:46 | PT.OTN ---
Current Diagnoses Low back pain (08/20/18) Physical Therapy Treatment Note PT-OP-A Visit Information Start: 07/27/18 08:34 Freq: Status: Active Protocol: Document 08/20/18 13:08 [facility] (Rec: 08/20/18 15:46 [facility] [id number]) Out-Patient Physical Therapy Visit Information Visit Information Visit Type Treatment Note Visit Start Time 13:05 Visit Stop Time 13:45 Total Visit Minutes 40 Visit Number 6 Number of COMMERCIAL PRODUCTION EDITOR Visits 0 PT-OP-B Current Condition Start: 07/27/18 08:34 Freq: Status: Active Protocol: Document 07/26/18 17:30 EA (Rec: 07/27/18 09:34 EA [id number]) Current Condition History of Current Condition Onset Date June/2018 Current Complaints Localized low back rated 6/10 History of Current Condition Present condition started just before the end of May 2018 with no known reasons. Patient reports she does regular sitted cardio machines exercises and follow videos yoga exercises that includes supine leg ups and other core exerises. Pt reports she does looks after two grand kids but aware about body mechanics. Patient denies any loss of function to both LE's; states pain is increased with long duration of standing, brushing teeth and washing dishes. She also reports difficulty of getting up in the bed due to aches and back sore that mostly in the morning; states pain decreased with help of heating pads. Patient denies any X-ray or any low back diagnostic imaging performed in the past. Prior Treatments and Tests Oral steroids for back pain: Had negative reactions Future Testing and Treatments Planned None identified. Treatment Goals Patient/Caregiver Goals Patient would like to eliminate low back pain so she could back to her usual daily activities with no limitation . 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 Current Functional Impairments (Reported) Functional Limitations- ADL's Independent with limitation to bending and lifting Functional Limitations- Mobility/Gait Indep with no AD but limited due to to increased in pain Functional Limitations- Work/School Limited teaching ability due to increased in pain PT-OP-C Subjective Start: 07/27/18 08:34 Freq: Status: Active Protocol: Document 08/20/18 13:08 [facility] (Rec: 08/20/18 15:46 [facility] [id number]) OP-PT Subjective Patient Comments Patient Comments Subha reports back is flared up still PT-OP-G Mobility & Gait Start: 07/27/18 08:34 Freq: Status: Active Protocol: Document 07/26/18 17:30 EA (Rec: 07/27/18 09:34 EA [id number]) OP Gait Assessment Comments Gait Comments No gait deviation noted Stair Climbing Evaluation Comments Stair Climbing Comments No stairs difficulty PT-OP-J Posture/Palpation/Skin Start: 07/27/18 08:34 Freq: Status: Active Protocol: Document 07/26/18 17:30 EA (Rec: 07/27/18 09:34 EA [id number]) Posture Evaluation Comments Posture Comments Good general posture with slight increased in lumbar lordosis Palpation Assessment Location One Palpation Location Both paralumbars, QL Palpation Findings Soft Tissue Tightness Muscle Guarding Tenderness Skin Assessment Other Assessments Skin Assessment Comments Palpable electronic device placed to R upper gluteal area PT-OP-K Range of Motion Start: 07/27/18 08:34 Freq: Status: Active Protocol: Document 07/26/18 17:30 EA (Rec: 07/27/18 09:34 EA [id number]) Lumbar Spine Range of Motion Lumbar Spine Active Percentage Testing Position Supine Flexion 70 Extension 40 Rotation Left 80 Rotation Right 80 Lateral Flexion Left 65 Lateral Flexion Right 60 ROM Limitations Soft Tissue Tightness Pain Comments localized Pain increased with Extension> flexion> side flexion Hip Goniometric Range of Motion Hip Measured in Degrees Left Active Hip ROM WFL Yes Right Hip ROM WFL Yes PT-OP-L Special Tests Start: 07/27/18 08:34 Freq: Status: Active Protocol: Document 07/26/18 17:30 EA (Rec: 07/27/18 09:34 EA [id number]) Special Tests Lumbar Spine Special Tests Other- 1 Test Results Neg Gaenlen's Slump Test Results negative Straight Leg Raise Test Results negative Compression Test Results negative PT-OP-M Strength Start: 07/27/18 08:34 Freq: Status: Active Protocol: Document 07/26/18 17:30 EA (Rec: 07/27/18 09:34 EA [id number]) Hip Strength Hip Manual Muscle Testing Right Reason Not Measured WFL Left Reason Not Measured WFL PT-OP-Q Treatments Start: 07/27/18 08:34 Freq: Status: Active Protocol: Document 08/20/18 13:08 [facility] (Rec: 08/20/18 15:46 [facility] [id number]) Cardio Equipment Recumbent Elliptical (Biodex) Duration (Minutes) 3 Resistance 1 Therapeutic Exercises Supine Exercises figure 4 stretch Supine Exercise Name figure 4 stretch Side left Reps/Minutes 30 sec 2 Supine Exercise Name piriformis stretch Side bilateral Reps/Minutes 30 sec 1 Supine Exercise Name lower trunk rotation Reps/Minutes 10 Comments focus on core & staying in comfortable range Sidelying Exercises 1 Sidelying Exercise Name clamshell Reps/Minutes 10 Manual Therapy Treatment Soft Tissue Mobilization 3 Body Location Paralumbars, Both QL Mobilization Type Myofascial Release Rolling Sustained Pressure Intensity/Depth Moderate Body Position Sidelying 2 Body Location piriformis/glutes L Mobilization Type Rolling Intensity/Depth Moderate Body Position Sidelying Joint Mobilizations 3 Joint hip Direction inf FM PT-OP-R Modalities Start: 07/27/18 08:34 Freq: Status: Active Protocol: Document 07/30/18 15:59 [facility] (Rec: 07/30/18 16:07 [facility] [id number]) Electric Stimulation Electric Stimulation Interferential Current (IFC) Body Location Paralumbars Duration (Minutes) 15 Intensity 15 Patient Position Sitting Combined With Heat/Cold Hot Pack Comments Pre-cautions: Electrodes not directly place to right upper gluteal electronic devices. PT-OP-T Assessment and Plan Start: 07/27/18 08:34 Freq: Status: Active Protocol: Document 08/20/18 13:08 [facility] (Rec: 08/20/18 15:46 [facility] [id number]) Physical Therapy Assessment Goals Four Impairment No HEP in place Quality Improvement Engineer Goal (LTG) Patient will exhibit independent safe home exercise program LTG Duration 4 wks Three Impairment Impaired sitting tolerance with less than 10 mins Quality Improvement Engineer Goal (LTG) Patient will sit more than 1 hour with no increase in symptoms LTG Duration 4 wks Two Impairment Impaired Lumbosacral ROM Quality Improvement Engineer Goal (LTG) Patient will exhibits near functional range lumbosacral ROM to enhance functional mobility without limitation LTG Duration 4 wks One Impairment Oswetry low back impairement scale of 34/50 [facility] Goal (LTG) Patient will have Oswetry low back impairment scale of < 15/ 50 LTG Duration 4 wks Assessment Summary Assessment Pt cont to be in muscle guarduing pattern with exhaustion with frustration of dec mobility and inc pain this week with outdoor activities with grandkids. She felt significant relief after session and was encouraged to cont her stretches. Physical Therapy Plan Frequency and Duration Frequency of Treatment 2x/Week Duration of Treatment 8 Plan of Care Start Date 07/26/18 Plan of Care End Date 09/20/18 Next Visit Focus/Plan Next Note Type Treatment Note Next Visit Plan Advance stabilization training and stretching as tolerated and manual therapy for improve function
--- NOTE | 2018-08-27 13:49 | PT.OTN ---
Current Diagnoses Low back pain (08/27/18) Physical Therapy Treatment Note PT-OP-A Visit Information Start: 07/27/18 08:34 Freq: Status: Active Protocol: Document 08/27/18 11:25 [facility] (Rec: 08/27/18 13:49 [facility] [id number]) Out-Patient Physical Therapy Visit Information Visit Information Visit Type Treatment Note Visit Start Time 13:00 Visit Stop Time 13:55 Total Visit Minutes 55 Visit Number 7 Number of ACID RECOVERY OPERATOR Visits 0 PT-OP-B Current Condition Start: 07/27/18 08:34 Freq: Status: Active Protocol: Document 07/26/18 17:30 EA (Rec: 07/27/18 09:34 EA [id number]) Current Condition History of Current Condition Onset Date June/2018 Current Complaints Localized low back rated 6/10 History of Current Condition Present condition started just before the end of May 2018 with no known reasons. Patient reports she does regular sitted cardio machines exercises and follow videos yoga exercises that includes supine leg ups and other core exerises. Pt reports she does looks after two grand kids but aware about body mechanics. Patient denies any loss of function to both LE's; states pain is increased with long duration of standing, brushing teeth and washing dishes. She also reports difficulty of getting up in the bed due to aches and back sore that mostly in the morning; states pain decreased with help of heating pads. Patient denies any X-ray or any low back diagnostic imaging performed in the past. Prior Treatments and Tests Oral steroids for back pain: Had negative reactions Future Testing and Treatments Planned None identified. Treatment Goals Patient/Caregiver Goals Patient would like to eliminate low back pain so she could back to her usual daily activities with no limitation . 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 Current Functional Impairments (Reported) Functional Limitations- ADL's Independent with limitation to bending and lifting Functional Limitations- Mobility/Gait Indep with no AD but limited due to to increased in pain Functional Limitations- Work/School Limited teaching ability due to increased in pain PT-OP-C Subjective Start: 07/27/18 08:34 Freq: Status: Active Protocol: Document 08/27/18 11:25 [facility] (Rec: 08/27/18 13:49 [facility] [id number]) OP-PT Subjective Patient Comments Patient Comments Pt reports she is doing well since last session. She has been doing a lot of stretching and she feels really good doing that. PT-OP-G Mobility & Gait Start: 07/27/18 08:34 Freq: Status: Active Protocol: Document 07/26/18 17:30 EA (Rec: 07/27/18 09:34 EA [id number]) OP Gait Assessment Comments Gait Comments No gait deviation noted Stair Climbing Evaluation Comments Stair Climbing Comments No stairs difficulty PT-OP-J Posture/Palpation/Skin Start: 07/27/18 08:34 Freq: Status: Active Protocol: Document 07/26/18 17:30 EA (Rec: 07/27/18 09:34 EA [id number]) Posture Evaluation Comments Posture Comments Good general posture with slight increased in lumbar lordosis Palpation Assessment Location One Palpation Location Both paralumbars, QL Palpation Findings Soft Tissue Tightness Muscle Guarding Tenderness Skin Assessment Other Assessments Skin Assessment Comments Palpable electronic device placed to R upper gluteal area PT-OP-K Range of Motion Start: 07/27/18 08:34 Freq: Status: Active Protocol: Document 07/26/18 17:30 EA (Rec: 07/27/18 09:34 EA [id number]) Lumbar Spine Range of Motion Lumbar Spine Active Percentage Testing Position Supine Flexion 70 Extension 40 Rotation Left 80 Rotation Right 80 Lateral Flexion Left 65 Lateral Flexion Right 60 ROM Limitations Soft Tissue Tightness Pain Comments localized Pain increased with Extension> flexion> side flexion Hip Goniometric Range of Motion Hip Measured in Degrees Left Active Hip ROM WFL Yes Right Hip ROM WFL Yes PT-OP-L Special Tests Start: 07/27/18 08:34 Freq: Status: Active Protocol: Document 07/26/18 17:30 EA (Rec: 07/27/18 09:34 EA [id number]) Special Tests Lumbar Spine Special Tests Other- 1 Test Results Neg Gaenlen's Slump Test Results negative Straight Leg Raise Test Results negative Compression Test Results negative PT-OP-M Strength Start: 07/27/18 08:34 Freq: Status: Active Protocol: Document 07/26/18 17:30 EA (Rec: 07/27/18 09:34 EA [id number]) Hip Strength Hip Manual Muscle Testing Right Reason Not Measured WFL Left Reason Not Measured WFL PT-OP-Q Treatments Start: 07/27/18 08:34 Freq: Status: Active Protocol: Document 08/27/18 11:25 [facility] (Rec: 08/27/18 13:49 [facility] [id number]) Therapeutic Exercises Supine Exercises 4 Supine Exercise Name scissors Side bilateral Reps/Minutes 10 3 Supine Exercise Name bridge on tball Comments 10 1 Supine Exercise Name lower trunk rotation on tball Reps/Minutes 10 Comments focus on core & staying in comfortable range Sitting Exercises 1 Sitting Exercise Name on tball pelvic tilts, lat tilts, & circles B Other Exercises quad arm raise Other Exercise Name quad arm raise Reps/Minutes 6 Manual Therapy Treatment Soft Tissue Mobilization 3 Body Location Paralumbars, Both QL Mobilization Type Myofascial Release Rolling Sustained Pressure Intensity/Depth Moderate Body Position Prone Comments over body pillow PT-OP-R Modalities Start: 07/27/18 08:34 Freq: Status: Active Protocol: Document 08/27/18 11:25 [facility] (Rec: 08/27/18 13:49 [facility] [id number]) Hot Pack/Cold Pack Treatment Hot Pack Location lumbar Patient Position Prone Treatment Duration (minutes) 15 PT-OP-T Assessment and Plan Start: 07/27/18 08:34 Freq: Status: Active Protocol: Document 08/27/18 11:25 [facility] (Rec: 08/27/18 13:49 [facility] [id number]) Physical Therapy Assessment Goals Four Impairment No HEP in place Halfway Goal (LTG) Patient will exhibit independent safe home exercise program LTG Duration 4 wks Three Impairment Impaired sitting tolerance with less than 10 mins Weight Loss Counselor Goal (LTG) Patient will sit more than 1 hour with no increase in symptoms LTG Duration 4 wks Two Impairment Impaired Lumbosacral ROM Halfway Goal (LTG) Patient will exhibits near functional range lumbosacral ROM to enhance functional mobility without limitation LTG Duration 4 wks One Impairment Oswetry low back impairement scale of 34/50 Halfway Goal (LTG) Patient will have Oswetry low back impairment scale of < 15/ 50 LTG Duration 4 wks Assessment Summary Assessment Pt able to tolerate progression of core strengthening & LE strengthening. She cont to advance with overall mobility. Improved soft tissue mobility Physical Therapy Plan Frequency and Duration Frequency of Treatment 2x/Week Duration of Treatment 8 Plan of Care Start Date 07/26/18 Plan of Care End Date 09/20/18 Next Visit Focus/Plan Next Note Type Treatment Note Next Visit Plan Progress abdominal stability
--- NOTE | 2018-09-02 14:50 | PT.OTN ---
Current Diagnoses Low back pain (09/02/18) Physical Therapy Treatment Note PT-OP-A Visit Information Start: 07/27/18 08:34 Freq: Status: Active Protocol: Document 09/02/18 13:00 EA (Rec: 09/02/18 13:08 EA [id number]) Out-Patient Physical Therapy Visit Information Visit Information Visit Type Treatment Note Visit Start Time 12:15 Visit Stop Time 13:00 Visit Number 9 Number of NEONATAL SURGEON Visits 0 PT-OP-B Current Condition Start: 07/27/18 08:34 Freq: Status: Active Protocol: Document 07/26/18 17:30 EA (Rec: 07/27/18 09:34 EA [id number]) Current Condition History of Current Condition Onset Date June/2018 Current Complaints Localized low back rated 6/10 History of Current Condition Present condition started just before the end of May 2018 with no known reasons. Patient reports she does regular sitted cardio machines exercises and follow videos yoga exercises that includes supine leg ups and other core exerises. Pt reports she does looks after two grand kids but aware about body mechanics. Patient denies any loss of function to both LE's; states pain is increased with long duration of standing, brushing teeth and washing dishes. She also reports difficulty of getting up in the bed due to aches and back sore that mostly in the morning; states pain decreased with help of heating pads. Patient denies any X-ray or any low back diagnostic imaging performed in the past. Prior Treatments and Tests Oral steroids for back pain: Had negative reactions Future Testing and Treatments Planned None identified. Treatment Goals Patient/Caregiver Goals Patient would like to eliminate low back pain so she could back to her usual daily activities with no limitation . 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 Current Functional Impairments (Reported) Functional Limitations- ADL's Independent with limitation to bending and lifting Functional Limitations- Mobility/Gait Indep with no AD but limited due to to increased in pain Functional Limitations- Work/School Limited teaching ability due to increased in pain PT-OP-C Subjective Start: 07/27/18 08:34 Freq: Status: Active Protocol: Document 09/02/18 13:00 EA (Rec: 09/02/18 13:08 EA [id number]) OP-PT Subjective Patient Comments Patient Comments Pt reports low back pain still hurts specially when sitting for longer period of time; states feels better after after session that has IFC at the back. PT-OP-G Mobility & Gait Start: 07/27/18 08:34 Freq: Status: Active Protocol: Document 07/26/18 17:30 EA (Rec: 07/27/18 09:34 EA [id number]) OP Gait Assessment Comments Gait Comments No gait deviation noted Stair Climbing Evaluation Comments Stair Climbing Comments No stairs difficulty PT-OP-J Posture/Palpation/Skin Start: 07/27/18 08:34 Freq: Status: Active Protocol: Document 07/26/18 17:30 EA (Rec: 07/27/18 09:34 EA [id number]) Posture Evaluation Comments Posture Comments Good general posture with slight increased in lumbar lordosis Palpation Assessment Location One Palpation Location Both paralumbars, QL Palpation Findings Soft Tissue Tightness Muscle Guarding Tenderness Skin Assessment Other Assessments Skin Assessment Comments Palpable electronic device placed to R upper gluteal area PT-OP-K Range of Motion Start: 07/27/18 08:34 Freq: Status: Active Protocol: Document 07/26/18 17:30 EA (Rec: 07/27/18 09:34 EA [id number]) Lumbar Spine Range of Motion Lumbar Spine Active Percentage Testing Position Supine Flexion 70 Extension 40 Rotation Left 80 Rotation Right 80 Lateral Flexion Left 65 Lateral Flexion Right 60 ROM Limitations Soft Tissue Tightness Pain Comments localized Pain increased with Extension> flexion> side flexion Hip Goniometric Range of Motion Hip Measured in Degrees Left Active Hip ROM WFL Yes Right Hip ROM WFL Yes PT-OP-L Special Tests Start: 07/27/18 08:34 Freq: Status: Active Protocol: Document 07/26/18 17:30 EA (Rec: 07/27/18 09:34 EA [id number]) Special Tests Lumbar Spine Special Tests Other- 1 Test Results Neg Gaenlen's Slump Test Results negative Straight Leg Raise Test Results negative Compression Test Results negative PT-OP-M Strength Start: 07/27/18 08:34 Freq: Status: Active Protocol: Document 07/26/18 17:30 EA (Rec: 07/27/18 09:34 EA [id number]) Hip Strength Hip Manual Muscle Testing Right Reason Not Measured WFL Left Reason Not Measured WFL PT-OP-Q Treatments Start: 07/27/18 08:34 Freq: Status: Active Protocol: Document 09/02/18 13:00 EA (Rec: 09/02/18 13:08 EA [id number]) Cardio Equipment Recumbent Stepper (Sci-Fit) Duration (Minutes) 5 Resistance 1 Therapeutic Exercises Supine Exercises DLS Marching Supine Exercise Name Marching Side right Reps/Minutes 10x figure 4 stretch Supine Exercise Name figure 4 stretch Side left Reps/Minutes 30 sec 6 Supine Exercise Name iliopsoas stretch off the side of the bed Sitting Exercises 3 Sitting Exercise Name lean and touch floor: stretch lumbar Reps/Minutes x 30SH x 3 Standing Exercises 7 Standing Exercise Name wall squat with PPT Reps/Minutes x 10 reps Manual Therapy Treatment Soft Tissue Mobilization 3 Body Location Paralumbars, Both QL Mobilization Type Myofascial Release Rolling Sustained Pressure Intensity/Depth Moderate Body Position Sitting Comments lean on higher table with pillow PT-OP-R Modalities Start: 07/27/18 08:34 Freq: Status: Active Protocol: Document 09/02/18 13:00 EA (Rec: 09/02/18 13:08 EA [id number]) Electric Stimulation Electric Stimulation Interferential Current (IFC) Body Location Paralumbars Duration (Minutes) 15 Intensity 15 Patient Position Sitting Combined With Heat/Cold Hot Pack Comments Pre-cautions: Electrodes not directly place to right upper gluteal electronic devices. PT-OP-T Assessment and Plan Start: 07/27/18 08:34 Freq: Status: Active Protocol: Document 09/02/18 13:00 EA (Rec: 09/02/18 13:08 EA [id number]) Physical Therapy Assessment Assessment Summary Assessment Pt tolerated treatment well with minor discomfort during manual PT to low back region but improved after. Physical Therapy Plan Next Visit Focus/Plan Next Note Type Treatment Note Next Visit Plan Progress abdominal stability
--- NOTE | 2018-09-07 16:01 | PT.OTN ---
Current Diagnoses Low back pain (09/07/18) Physical Therapy Treatment Note PT-OP-A Visit Information Start: 07/27/18 08:34 Freq: Status: Active Protocol: Document 09/07/18 15:51 SA (Rec: 09/07/18 16:00 SA [email or web address]) Out-Patient Physical Therapy Visit Information Visit Information Visit Type Treatment Note Visit Start Time 13:00 Visit Stop Time 13:55 Total Visit Minutes 55 Visit Number 10 Number of GLASS DEPOSITION TENDER Visits 1 PT-OP-B Current Condition Start: 07/27/18 08:34 Freq: Status: Active Protocol: Document 07/26/18 17:30 EA (Rec: 07/27/18 09:34 EA [id number]) Current Condition History of Current Condition Onset Date June/2018 Current Complaints Localized low back rated 6/10 History of Current Condition Present condition started just before the end of May 2018 with no known reasons. Patient reports she does regular sitted cardio machines exercises and follow videos yoga exercises that includes supine leg ups and other core exerises. Pt reports she does looks after two grand kids but aware about body mechanics. Patient denies any loss of function to both LE's; states pain is increased with long duration of standing, brushing teeth and washing dishes. She also reports difficulty of getting up in the bed due to aches and back sore that mostly in the morning; states pain decreased with help of heating pads. Patient denies any X-ray or any low back diagnostic imaging performed in the past. Prior Treatments and Tests Oral steroids for back pain: Had negative reactions Future Testing and Treatments Planned None identified. Treatment Goals Patient/Caregiver Goals Patient would like to eliminate low back pain so she could back to her usual daily activities with no limitation . 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 Current Functional Impairments (Reported) Functional Limitations- ADL's Independent with limitation to bending and lifting Functional Limitations- Mobility/Gait Indep with no AD but limited due to to increased in pain Functional Limitations- Work/School Limited teaching ability due to increased in pain PT-OP-C Subjective Start: 07/27/18 08:34 Freq: Status: Active Protocol: Document 09/07/18 15:51 SA (Rec: 09/07/18 16:00 SA [email or web address]) OP-PT Subjective Patient Comments Patient Comments Pt reports improving postural awareness but states she sometimes forgets and notices her symptoms return when she does. PT-OP-G Mobility & Gait Start: 07/27/18 08:34 Freq: Status: Active Protocol: Document 07/26/18 17:30 EA (Rec: 07/27/18 09:34 EA [id number]) OP Gait Assessment Comments Gait Comments No gait deviation noted Stair Climbing Evaluation Comments Stair Climbing Comments No stairs difficulty PT-OP-J Posture/Palpation/Skin Start: 07/27/18 08:34 Freq: Status: Active Protocol: Document 07/26/18 17:30 EA (Rec: 07/27/18 09:34 EA [id number]) Posture Evaluation Comments Posture Comments Good general posture with slight increased in lumbar lordosis Palpation Assessment Location One Palpation Location Both paralumbars, QL Palpation Findings Soft Tissue Tightness Muscle Guarding Tenderness Skin Assessment Other Assessments Skin Assessment Comments Palpable electronic device placed to R upper gluteal area PT-OP-K Range of Motion Start: 07/27/18 08:34 Freq: Status: Active Protocol: Document 07/26/18 17:30 EA (Rec: 07/27/18 09:34 EA [id number]) Lumbar Spine Range of Motion Lumbar Spine Active Percentage Testing Position Supine Flexion 70 Extension 40 Rotation Left 80 Rotation Right 80 Lateral Flexion Left 65 Lateral Flexion Right 60 ROM Limitations Soft Tissue Tightness Pain Comments localized Pain increased with Extension> flexion> side flexion Hip Goniometric Range of Motion Hip Measured in Degrees Left Active Hip ROM WFL Yes Right Hip ROM WFL Yes PT-OP-L Special Tests Start: 07/27/18 08:34 Freq: Status: Active Protocol: Document 07/26/18 17:30 EA (Rec: 07/27/18 09:34 EA [id number]) Special Tests Lumbar Spine Special Tests Other- 1 Test Results Neg Gaenlen's Slump Test Results negative Straight Leg Raise Test Results negative Compression Test Results negative PT-OP-M Strength Start: 07/27/18 08:34 Freq: Status: Active Protocol: Document 07/26/18 17:30 EA (Rec: 07/27/18 09:34 EA [id number]) Hip Strength Hip Manual Muscle Testing Right Reason Not Measured WFL Left Reason Not Measured WFL PT-OP-Q Treatments Start: 07/27/18 08:34 Freq: Status: Active Protocol: Document 09/07/18 15:51 SA (Rec: 09/07/18 16:00 [email or web address]) Cardio Equipment Recumbent Stepper (Sci-Fit) Duration (Minutes) 7 Resistance 2 Therapeutic Exercises Supine Exercises DLS Marching Supine Exercise Name Marching Side bilateral Reps/Minutes 10x figure 4 stretch Supine Exercise Name figure 4 stretch Side left Reps/Minutes 30 sec Sidelying Exercises 1 Sidelying Exercise Name clamshells Side bilateral Reps/Minutes 15 x each Sitting Exercises PT ball LE marching Side bilateral Equipment Used 65 cm ball Reps/Minutes 2 min PT ball Pelvic clocks Resistance 65 cm Reps/Minutes 2 min 3 Sitting Exercise Name lean and touch floor: stretch lumbar Reps/Minutes x 30SH x 3 Manual Therapy Treatment Soft Tissue Mobilization 3 Body Location Paralumbars, Both QL Mobilization Type Myofascial Release Rolling Sustained Pressure Intensity/Depth Moderate Body Position Sitting Comments lean on higher table with pillow PT-OP-R Modalities Start: 07/27/18 08:34 Freq: Status: Active Protocol: Document 09/07/18 15:51 SA (Rec: 09/07/18 16:00 [email or web address]) Electric Stimulation Electric Stimulation Interferential Current (IFC) Body Location Paralumbars Duration (Minutes) 15 Intensity 15 Patient Position Sitting Combined With Heat/Cold Hot Pack Comments Pre-cautions: Electrodes not directly place to right upper gluteal electronic devices. PT-OP-T Assessment and Plan Start: 07/27/18 08:34 Freq: Status: Active Protocol: Document 09/07/18 15:51 (Rec: 09/07/18 16:00 [email or web address]) Physical Therapy Assessment Assessment Summary Assessment Pt progressing well, able to maintain posterior pelvic tilt better and is stabilizing core with transitional movements which is helping decrease symptoms. Physical Therapy Plan Next Visit Focus/Plan Next Note Type Treatment Note Next Visit Plan Continue to progress core stability program and E-stim and STM for symptom management as needed.
--- NOTE | 2018-09-09 17:37 | PT.OTN ---
Current Diagnoses Low back pain (09/09/18) Physical Therapy Treatment Note PT-OP-A Visit Information Start: 07/27/18 08:34 Freq: Status: Active Protocol: Document 09/09/18 17:22 [facility] (Rec: 09/09/18 17:36 [facility] [email or web address]) Out-Patient Physical Therapy Visit Information Visit Information Visit Type Treatment Note Visit Start Time 16:15 Visit Stop Time 17:00 Total Visit Minutes 45 Visit Number 11 Number of INDUSTRIAL REFRIGERATION MECHANIC Visits 0 PT-OP-B Current Condition Start: 07/27/18 08:34 Freq: Status: Active Protocol: Document 07/26/18 17:30 EA (Rec: 07/27/18 09:34 EA [id number]) Current Condition History of Current Condition Onset Date June/2018 Current Complaints Localized low back rated 6/10 History of Current Condition Present condition started just before the end of May 2018 with no known reasons. Patient reports she does regular sitted cardio machines exercises and follow videos yoga exercises that includes supine leg ups and other core exerises. Pt reports she does looks after two grand kids but aware about body mechanics. Patient denies any loss of function to both LE's; states pain is increased with long duration of standing, brushing teeth and washing dishes. She also reports difficulty of getting up in the bed due to aches and back sore that mostly in the morning; states pain decreased with help of heating pads. Patient denies any X-ray or any low back diagnostic imaging performed in the past. Prior Treatments and Tests Oral steroids for back pain: Had negative reactions Future Testing and Treatments Planned None identified. Treatment Goals Patient/Caregiver Goals Patient would like to eliminate low back pain so she could back to her usual daily activities with no limitation . 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 Current Functional Impairments (Reported) Functional Limitations- ADL's Independent with limitation to bending and lifting Functional Limitations- Mobility/Gait Indep with no AD but limited due to to increased in pain Functional Limitations- Work/School Limited teaching ability due to increased in pain PT-OP-C Subjective Start: 07/27/18 08:34 Freq: Status: Active Protocol: Document 09/09/18 17:22 [facility] (Rec: 09/09/18 17:36 [facility] [email or web address]) OP-PT Subjective Patient Comments Patient Comments reports the seated ball exercises are very helpful to her. She reports no pain in the am, by 1:00 pm her pain is a 4, by nightime is when it is at its worst. Subha reports she is able to put on her pants better now. Patient Reported Progress Improving PT-OP-G Mobility & Gait Start: 07/27/18 08:34 Freq: Status: Active Protocol: Document 07/26/18 17:30 EA (Rec: 07/27/18 09:34 EA [id number]) OP Gait Assessment Comments Gait Comments No gait deviation noted Stair Climbing Evaluation Comments Stair Climbing Comments No stairs difficulty PT-OP-J Posture/Palpation/Skin Start: 07/27/18 08:34 Freq: Status: Active Protocol: Document 07/26/18 17:30 EA (Rec: 07/27/18 09:34 EA [id number]) Posture Evaluation Comments Posture Comments Good general posture with slight increased in lumbar lordosis Palpation Assessment Location One Palpation Location Both paralumbars, QL Palpation Findings Soft Tissue Tightness Muscle Guarding Tenderness Skin Assessment Other Assessments Skin Assessment Comments Palpable electronic device placed to R upper gluteal area PT-OP-K Range of Motion Start: 07/27/18 08:34 Freq: Status: Active Protocol: Document 07/26/18 17:30 EA (Rec: 07/27/18 09:34 EA [id number]) Lumbar Spine Range of Motion Lumbar Spine Active Percentage Testing Position Supine Flexion 70 Extension 40 Rotation Left 80 Rotation Right 80 Lateral Flexion Left 65 Lateral Flexion Right 60 ROM Limitations Soft Tissue Tightness Pain Comments localized Pain increased with Extension> flexion> side flexion Hip Goniometric Range of Motion Hip Measured in Degrees Left Active Hip ROM WFL Yes Right Hip ROM WFL Yes PT-OP-L Special Tests Start: 07/27/18 08:34 Freq: Status: Active Protocol: Document 07/26/18 17:30 EA (Rec: 07/27/18 09:34 EA [id number]) Special Tests Lumbar Spine Special Tests Other- 1 Test Results Neg Gaenlen's Slump Test Results negative Straight Leg Raise Test Results negative Compression Test Results negative PT-OP-M Strength Start: 07/27/18 08:34 Freq: Status: Active Protocol: Document 07/26/18 17:30 EA (Rec: 07/27/18 09:34 EA [id number]) Hip Strength Hip Manual Muscle Testing Right Reason Not Measured WFL Left Reason Not Measured WFL PT-OP-Q Treatments Start: 07/27/18 08:34 Freq: Status: Active Protocol: Document 09/09/18 17:22 [facility] (Rec: 09/09/18 17:36 [facility] [email or web address]) Cardio Equipment Recumbent Elliptical (Biodex) Duration (Minutes) 5 Gym Equipment Shuttle Recovery Bilateral Squats Details bilateral squats Resistance 50# Reps/Time 3x 10 reps Therapeutic Exercises Supine Exercises DLS Marching Supine Exercise Name Marching Side bilateral Reps/Minutes 10x figure 4 stretch Supine Exercise Name figure 4 stretch Side left Reps/Minutes 30 sec 7 Supine Exercise Name isometric ball squeeze Reps/Minutes x 10 reps Comments with TA facilitation 6 Supine Exercise Name iliopsoas stretch off the side of the bed Sidelying Exercises 1 Sidelying Exercise Name clamshells Side bilateral Reps/Minutes 15 x each Sitting Exercises PT ball Pelvic clocks Resistance 65 cm Reps/Minutes 2 min 3 Sitting Exercise Name lean and touch floor: stretch lumbar Reps/Minutes x 30SH x 3 Other Exercises Dana pose Other Exercise Name dana pose Reps/Minutes 10 sec hold cat/camel Other Exercise Name cat/camel Reps/Minutes x 10 reps Manual Therapy Treatment Soft Tissue Mobilization 3 Body Location Paralumbars, Both QL Mobilization Type Myofascial Release Rolling Sustained Pressure Intensity/Depth Moderate Body Position Prone Comments on prone body pillow PT-OP-R Modalities Start: 07/27/18 08:34 Freq: Status: Active Protocol: Document 09/07/18 15:51 SA (Rec: 09/07/18 16:00 SA [email or web address]) Electric Stimulation Electric Stimulation Interferential Current (IFC) Body Location Paralumbars Duration (Minutes) 15 Intensity 15 Patient Position Sitting Combined With Heat/Cold Hot Pack Comments Pre-cautions: Electrodes not directly place to right upper gluteal electronic devices. PT-OP-T Assessment and Plan Start: 07/27/18 08:34 Freq: Status: Active Protocol: Document 09/09/18 17:22 [facility] (Rec: 09/09/18 17:36 AM[facility] [email or web address]) Physical Therapy Assessment Assessment Summary Assessment improving lumbar ROM, likes ball exercises and seated forward bend. Contintue to progress transitional movements like rolling to side or getting up from the floor as these are difficult for Subha Physical Therapy Plan Frequency and Duration Frequency of Treatment 2x/Week Duration of Treatment 8 Plan of Care Start Date 07/26/18 Plan of Care End Date 09/20/18 Therapeutic Interventions Therapeutic Interventions Home Exercise Program Joint Mobilizations Manual Therapy Patient/Caregiver Education Self-Care/Home Management Soft Tissue Mobilization Therapeutic Exercises Next Visit Focus/Plan Next Note Type Treatment Note Next Visit Plan work on tightening core with rolling in bed, continue to progress core stability exercises
--- NOTE | 2018-09-14 14:19 | PT.OTN ---
Current Diagnoses Low back pain (09/14/18) Physical Therapy Treatment Note PT-OP-A Visit Information Start: 07/27/18 08:34 Freq: Status: Active Protocol: Document 09/14/18 14:06 SA (Rec: 09/14/18 14:19 SA [email or web address]) Out-Patient Physical Therapy Visit Information Visit Information Visit Type Treatment Note Visit Start Time 13:00 Visit Stop Time 13:46 Total Visit Minutes 46 Visit Number 12 Number of WILDLIFE ECOLOGY PROFESSOR Visits 1 PT-OP-B Current Condition Start: 07/27/18 08:34 Freq: Status: Active Protocol: Document 07/26/18 17:30 EA (Rec: 07/27/18 09:34 EA [id number]) Current Condition History of Current Condition Onset Date June/2018 Current Complaints Localized low back rated 6/10 History of Current Condition Present condition started just before the end of May 2018 with no known reasons. Patient reports she does regular sitted cardio machines exercises and follow videos yoga exercises that includes supine leg ups and other core exerises. Pt reports she does looks after two grand kids but aware about body mechanics. Patient denies any loss of function to both LE's; states pain is increased with long duration of standing, brushing teeth and washing dishes. She also reports difficulty of getting up in the bed due to aches and back sore that mostly in the morning; states pain decreased with help of heating pads. Patient denies any X-ray or any low back diagnostic imaging performed in the past. Prior Treatments and Tests Oral steroids for back pain: Had negative reactions Future Testing and Treatments Planned None identified. Treatment Goals Patient/Caregiver Goals Patient would like to eliminate low back pain so she could back to her usual daily activities with no limitation . 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 Current Functional Impairments (Reported) Functional Limitations- ADL's Independent with limitation to bending and lifting Functional Limitations- Mobility/Gait Indep with no AD but limited due to to increased in pain Functional Limitations- Work/School Limited teaching ability due to increased in pain PT-OP-C Subjective Start: 07/27/18 08:34 Freq: Status: Active Protocol: Document 09/14/18 14:06 SA (Rec: 03/12/19 14:19 SA [email or web address]) OP-PT Subjective Patient Comments Patient Comments Pt feeling better overall with consistent completion of HEP. Does get discouraged at times that it is taking so long. PT-OP-G Mobility & Gait Start: 07/27/18 08:34 Freq: Status: Active Protocol: Document 07/26/18 17:30 EA (Rec: 07/27/18 09:34 EA [id number]) OP Gait Assessment Comments Gait Comments No gait deviation noted Stair Climbing Evaluation Comments Stair Climbing Comments No stairs difficulty PT-OP-J Posture/Palpation/Skin Start: 07/27/18 08:34 Freq: Status: Active Protocol: Document 07/26/18 17:30 EA (Rec: 07/27/18 09:34 EA [id number]) Posture Evaluation Comments Posture Comments Good general posture with slight increased in lumbar lordosis Palpation Assessment Location One Palpation Location Both paralumbars, QL Palpation Findings Soft Tissue Tightness Muscle Guarding Tenderness Skin Assessment Other Assessments Skin Assessment Comments Palpable electronic device placed to R upper gluteal area PT-OP-K Range of Motion Start: 07/27/18 08:34 Freq: Status: Active Protocol: Document 07/26/18 17:30 EA (Rec: 07/27/18 09:34 EA [id number]) Lumbar Spine Range of Motion Lumbar Spine Active Percentage Testing Position Supine Flexion 70 Extension 40 Rotation Left 80 Rotation Right 80 Lateral Flexion Left 65 Lateral Flexion Right 60 ROM Limitations Soft Tissue Tightness Pain Comments localized Pain increased with Extension> flexion> side flexion Hip Goniometric Range of Motion Hip Measured in Degrees Left Active Hip ROM WFL Yes Right Hip ROM WFL Yes PT-OP-L Special Tests Start: 07/27/18 08:34 Freq: Status: Active Protocol: Document 07/26/18 17:30 EA (Rec: 07/27/18 09:34 EA [id number]) Special Tests Lumbar Spine Special Tests Other- 1 Test Results Neg Gaenlen's Slump Test Results negative Straight Leg Raise Test Results negative Compression Test Results negative PT-OP-M Strength Start: 07/27/18 08:34 Freq: Status: Active Protocol: Document 07/26/18 17:30 EA (Rec: 07/27/18 09:34 EA [id number]) Hip Strength Hip Manual Muscle Testing Right Reason Not Measured WFL Left Reason Not Measured WFL PT-OP-Q Treatments Start: 07/27/18 08:34 Freq: Status: Active Protocol: Document 09/14/18 14:06 SA (Rec: 09/14/18 14:19 SA [email or web address]) Cardio Equipment Recumbent Stepper (Sci-Fit) Duration (Minutes) 7 Resistance 3 Therapeutic Exercises Supine Exercises DLS Marching Supine Exercise Name Marching Side bilateral Reps/Minutes 12x figure 4 stretch Supine Exercise Name figure 4 stretch Side left Reps/Minutes 30 sec pelvic tilt Supine Exercise Name w/ bridging progression Side bilateral Reps/Minutes 10x Sidelying Exercises 1 Sidelying Exercise Name clamshells Side bilateral Reps/Minutes 20x each Sitting Exercises PT ball LE marching Side bilateral Equipment Used 65 cm ball Reps/Minutes 3 min PT ball Pelvic clocks Resistance 65 cm Reps/Minutes 3 min 3 Sitting Exercise Name lean and touch floor: stretch lumbar Reps/Minutes x 30SH x 3 Standing Exercises 7 Standing Exercise Name wall squat with PPT Reps/Minutes 12x Other Exercises Darian pose Other Exercise Name darian pose Reps/Minutes 10 sec hold Manual Therapy Treatment Soft Tissue Mobilization 3 Body Location Paralumbars, Both QL Mobilization Type Myofascial Release Rolling Sustained Pressure Intensity/Depth Moderate Body Position Sidelying PT-OP-R Modalities Start: 07/27/18 08:34 Freq: Status: Active Protocol: Document 09/07/18 15:51 SA (Rec: 09/07/18 16:00 [email or web address]) Electric Stimulation Electric Stimulation Interferential Current (IFC) Body Location Paralumbars Duration (Minutes) 15 Intensity 15 Patient Position Sitting Combined With Heat/Cold Hot Pack Comments Pre-cautions: Electrodes not directly place to right upper gluteal electronic devices. PT-OP-T Assessment and Plan Start: 07/27/18 08:34 Freq: Status: Active Protocol: Document 09/14/18 14:06 SA (Rec: 09/14/18 14:19 [email or web address]) Physical Therapy Assessment Assessment Summary Assessment Education/practice of supine to sit with core stabilization to decrease low back pain. Pt does has best results with log roll technique and bracing . Symptoms decreasing and pt consistent with HEP. Physical Therapy Plan Next Visit Focus/Plan Next Note Type Treatment Note Next Visit Plan Progress core stability program, review body mechanics with bed mobility.
--- NOTE | 2018-09-21 15:12 | PT.OTN ---
Current Diagnoses Low back pain (09/21/18) Physical Therapy Treatment Note PT-OP-A Visit Information Start: 07/27/18 08:34 Freq: Status: Active Protocol: Document 09/21/18 11:15 [facility] (Rec: 09/21/18 14:29 [facility] [email or web address]) Out-Patient Physical Therapy Visit Information Visit Information Visit Type Progress Note Visit Start Time 11:15 Visit Stop Time 12:15 Total Visit Minutes 60 Visit Number 13 Number of AIR CONDITIONING ENGINEER Visits 0 PT-OP-B Current Condition Start: 07/27/18 08:34 Freq: Status: Active Protocol: Document 07/26/18 17:30 EA (Rec: 07/27/18 09:34 EA [id number]) Current Condition History of Current Condition Onset Date June/2018 Current Complaints Localized low back rated 6/10 History of Current Condition Present condition started just before the end of May 2018 with no known reasons. Patient reports she does regular sitted cardio machines exercises and follow videos yoga exercises that includes supine leg ups and other core exerises. Pt reports she does looks after two grand kids but aware about body mechanics. Patient denies any loss of function to both LE's; states pain is increased with long duration of standing, brushing teeth and washing dishes. She also reports difficulty of getting up in the bed due to aches and back sore that mostly in the morning; states pain decreased with help of heating pads. Patient denies any X-ray or any low back diagnostic imaging performed in the past. Prior Treatments and Tests Oral steroids for back pain: Had negative reactions Future Testing and Treatments Planned None identified. Treatment Goals Patient/Caregiver Goals Patient would like to eliminate low back pain so she could back to her usual daily activities with no limitation . 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 Current Functional Impairments (Reported) Functional Limitations- ADL's Independent with limitation to bending and lifting Functional Limitations- Mobility/Gait Indep with no AD but limited due to to increased in pain Functional Limitations- Work/School Limited teaching ability due to increased in pain PT-OP-C Subjective Start: 07/27/18 08:34 Freq: Status: Active Protocol: Document 09/21/18 11:15 [facility] (Rec: 09/21/18 14:29 [facility] [email or web address]) OP-PT Subjective Patient Comments Patient Comments Pt reports she was doing well until Thursday and she could barely move. Pt was tearful and she stated she had difficulty getting out of the car. Reports her left side of her LB is feeling good but not R side. PT-OP-G Mobility & Gait Start: 07/27/18 08:34 Freq: Status: Active Protocol: Document 07/26/18 17:30 EA (Rec: 07/27/18 09:34 EA [id number]) OP Gait Assessment Comments Gait Comments No gait deviation noted Stair Climbing Evaluation Comments Stair Climbing Comments No stairs difficulty PT-OP-J Posture/Palpation/Skin Start: 07/27/18 08:34 Freq: Status: Active Protocol: Document 07/26/18 17:30 EA (Rec: 07/27/18 09:34 EA [id number]) Posture Evaluation Comments Posture Comments Good general posture with slight increased in lumbar lordosis Palpation Assessment Location One Palpation Location Both paralumbars, QL Palpation Findings Soft Tissue Tightness Muscle Guarding Tenderness Skin Assessment Other Assessments Skin Assessment Comments Palpable electronic device placed to R upper gluteal area PT-OP-K Range of Motion Start: 07/27/18 08:34 Freq: Status: Active Protocol: Document 07/26/18 17:30 EA (Rec: 07/27/18 09:34 EA [id number]) Lumbar Spine Range of Motion Lumbar Spine Active Percentage Testing Position Supine Flexion 70 Extension 40 Rotation Left 80 Rotation Right 80 Lateral Flexion Left 65 Lateral Flexion Right 60 ROM Limitations Soft Tissue Tightness Pain Comments localized Pain increased with Extension> flexion> side flexion Hip Goniometric Range of Motion Hip Measured in Degrees Left Active Hip ROM WFL Yes Right Hip ROM WFL Yes PT-OP-L Special Tests Start: 07/27/18 08:34 Freq: Status: Active Protocol: Document 07/26/18 17:30 EA (Rec: 07/27/18 09:34 EA [id number]) Special Tests Lumbar Spine Special Tests Other- 1 Test Results Neg Gaenlen's Slump Test Results negative Straight Leg Raise Test Results negative Compression Test Results negative PT-OP-M Strength Start: 07/27/18 08:34 Freq: Status: Active Protocol: Document 07/26/18 17:30 EA (Rec: 07/27/18 09:34 EA [id number]) Hip Strength Hip Manual Muscle Testing Right Reason Not Measured WFL Left Reason Not Measured WFL PT-OP-Q Treatments Start: 07/27/18 08:34 Freq: Status: Active Protocol: Document 09/21/18 11:15 [facility] (Rec: 09/21/18 15:12 [facility] [email or web address]) Manual Therapy Treatment Soft Tissue Mobilization 3 Body Location Paralumbars, Both QL Mobilization Type Myofascial Release Rolling Sustained Pressure Intensity/Depth Moderate Body Position Sidelying Comments foucs on R side Joint Mobilizations 3 Joint hip Direction inf glide FM Self-Care/Home Management Treatment Education Patient Education Home Exercise Program Joint Protection Other Education reviewed exercises to focus on (stretching & ROM) to reduce pain, discussed heat/ice at home & reviewed log roll technique PT-OP-R Modalities Start: 07/27/18 08:34 Freq: Status: Active Protocol: Document 09/21/18 11:15 [facility] (Rec: 09/21/18 14:29 [facility] [email or web address]) Electric Stimulation Electric Stimulation Interferential Current (IFC) Body Location Paralumbars Duration (Minutes) 15 Intensity 15 Patient Position Sitting Combined With Heat/Cold Hot Pack Comments Pre-cautions: Electrodes not directly place to right upper gluteal electronic devices. PT-OP-T Assessment and Plan Start: 07/27/18 08:34 Freq: Status: Active Protocol: Document 09/21/18 11:15 [facility] (Rec: 09/21/18 15:12 [facility] [email or web address]) Physical Therapy Assessment Goals Four Impairment No HEP in place Penitentiary Goal (LTG) Patient will exhibit independent safe home exercise program LTG Duration achieved progressing as tolerated Three Impairment Impaired sitting tolerance with less than 10 mins Regional Psychiatric Director Goal (LTG) Patient will sit more than 1 hour with no increase in symptoms LTG Duration 4 wks Two Impairment Impaired Lumbosacral ROM Regional Psychiatric Director Goal (LTG) Patient will exhibits near functional range lumbosacral ROM to enhance functional mobility without limitation LTG Duration 4 wks One Impairment Oswetry low back impairement scale of 34/50 Regional Psychiatric Director Goal (LTG) Patient will have Oswetry low back impairment scale of < 15/ 50 LTG Duration 4 wks Assessment Summary Assessment Pt was making good progress with activity tolerance and LBP, but had a significant set back this weekend that has created much higher level of pain. Reviewed home activities to focus on to help pt and worked manually to improve symptoms Physical Therapy Plan Frequency and Duration Frequency of Treatment 2x/Week Duration of Treatment 2 months Plan of Care Start Date 09/21/18 Plan of Care End Date 11/21/18 Therapeutic Interventions Therapeutic Interventions Aquatic Therapy Balance Training Home Exercise Program Joint Mobilizations Manual Therapy Patient/Caregiver Education Self-Care/Home Management Soft Tissue Mobilization Taping Therapeutic Activities Therapeutic Exercises Modalities Cold Pack/Ice Massage Electric Stimulation Hot Packs Traction- Mechanical Ultrasound Next Visit Focus/Plan Next Note Type Treatment Note Next Visit Plan Progress core stability program, review body mechanics with bed mobility.
--- NOTE | 2018-09-21 15:12 | PT.OPPOC ---
Current Diagnoses Low back pain (09/21/18) Provider Visit Care Team Role Provider Type Tiny Henderson MD Family Provider Physician Primary Care Provider Specialty: Family Practice Address: [address] [place] [address], [id number] Email: [email or web address] JONNY Ospina Attending Provider Advanced Engineer Intern Specialty: Medical Address: [address] [place] [address], [id number] Email: Plan Of Care PT-OP-T Assessment and Plan Start: 07/27/18 08:34 Freq: Status: Active Protocol: Document 09/21/18 11:15 [facility] (Rec: 09/21/18 15:12 [facility] [email or web address]) Physical Therapy Assessment Goals Four Impairment No HEP in place Outside Laborer Goal (LTG) Patient will exhibit independent safe home exercise program LTG Duration achieved progressing as tolerated Three Impairment Impaired sitting tolerance with less than 10 mins Detention Goal (LTG) Patient will sit more than 1 hour with no increase in symptoms LTG Duration 4 wks Two Impairment Impaired Lumbosacral ROM Detention Goal (LTG) Patient will exhibits near functional range lumbosacral ROM to enhance functional mobility without limitation LTG Duration 4 wks One Impairment Oswetry low back impairement scale of 34/50 Detention Goal (LTG) Patient will have Oswetry low back impairment scale of < 15/ 50 LTG Duration 4 wks Assessment Summary Assessment Pt was making good progress with activity tolerance and LBP, but had a significant set back this weekend that has created much higher level of pain. Reviewed home activities to focus on to help pt and worked manually to improve symptoms Physical Therapy Plan Frequency and Duration Frequency of Treatment 2x/Week Duration of Treatment 2 months Plan of Care Start Date 09/21/18 Plan of Care End Date 11/21/18 Therapeutic Interventions Therapeutic Interventions Aquatic Therapy Balance Training Home Exercise Program Joint Mobilizations Manual Therapy Patient/Caregiver Education Self-Care/Home Management Soft Tissue Mobilization Taping Therapeutic Activities Therapeutic Exercises Modalities Cold Pack/Ice Massage Electric Stimulation Hot Packs Traction- Mechanical Ultrasound Next Visit Focus/Plan Next Note Type Treatment Note Next Visit Plan Progress core stability program, review body mechanics with bed mobility. Plan of Care Dates Plan of Care Start Date 09/21/18 Plan of Care End Date 11/21/18 Please Sign and Return: I have reviewed this Plan of Care and certify that the skilled therapy services above are required to meet the patient?s needs. Physician Signature Date Printed Name and Credentials Clinical Instructor Signature Printed Name and Credentials
--- NOTE | 2018-09-23 14:51 | PT.OTN ---
Current Diagnoses Low back pain (09/23/18) Physical Therapy Treatment Note PT-OP-A Visit Information Start: 07/27/18 08:34 Freq: Status: Active Protocol: Document 09/23/18 14:43 AMH (Rec: 09/23/18 14:51 AMH [email or web address]) Out-Patient Physical Therapy Visit Information Visit Information Visit Type Treatment Note Visit Start Time 13:45 Visit Stop Time 14:30 Total Visit Minutes 45 Visit Number 14 Number of [employer] Visits 0 PT-OP-B Current Condition Start: 07/27/18 08:34 Freq: Status: Active Protocol: Document 07/26/18 17:30 EA (Rec: 07/27/18 09:34 EA [id number]) Current Condition History of Current Condition Onset Date June/2018 Current Complaints Localized low back rated 6/10 History of Current Condition Present condition started just before the end of May 2018 with no known reasons. Patient reports she does regular sitted cardio machines exercises and follow videos yoga exercises that includes supine leg ups and other core exerises. Pt reports she does looks after two grand kids but aware about body mechanics. Patient denies any loss of function to both LE's; states pain is increased with long duration of standing, brushing teeth and washing dishes. She also reports difficulty of getting up in the bed due to aches and back sore that mostly in the morning; states pain decreased with help of heating pads. Patient denies any X-ray or any low back diagnostic imaging performed in the past. Prior Treatments and Tests Oral steroids for back pain: Had negative reactions Future Testing and Treatments Planned None identified. Treatment Goals Patient/Caregiver Goals Patient would like to eliminate low back pain so she could back to her usual daily activities with no limitation . 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 Current Functional Impairments (Reported) Functional Limitations- ADL's Independent with limitation to bending and lifting Functional Limitations- Mobility/Gait Indep with no AD but limited due to to increased in pain Functional Limitations- Work/School Limited teaching ability due to increased in pain PT-OP-C Subjective Start: 07/27/18 08:34 Freq: Status: Active Protocol: Document 09/23/18 14:43 AMH (Rec: 09/23/18 14:51 AMH [email or web address]) OP-PT Subjective Patient Comments Patient Comments Pt reports she talked to her MD about flare up of back pain and was told to take 500 mg of alieve 2 xms per day. This seems to be helping PT-OP-G Mobility & Gait Start: 07/27/18 08:34 Freq: Status: Active Protocol: Document 07/26/18 17:30 EA (Rec: 07/27/18 09:34 EA [id number]) OP Gait Assessment Comments Gait Comments No gait deviation noted Stair Climbing Evaluation Comments Stair Climbing Comments No stairs difficulty PT-OP-J Posture/Palpation/Skin Start: 07/27/18 08:34 Freq: Status: Active Protocol: Document 07/26/18 17:30 EA (Rec: 07/27/18 09:34 EA [id number]) Posture Evaluation Comments Posture Comments Good general posture with slight increased in lumbar lordosis Palpation Assessment Location One Palpation Location Both paralumbars, QL Palpation Findings Soft Tissue Tightness Muscle Guarding Tenderness Skin Assessment Other Assessments Skin Assessment Comments Palpable electronic device placed to R upper gluteal area PT-OP-K Range of Motion Start: 07/27/18 08:34 Freq: Status: Active Protocol: Document 07/26/18 17:30 EA (Rec: 07/27/18 09:34 EA [id number]) Lumbar Spine Range of Motion Lumbar Spine Active Percentage Testing Position Supine Flexion 70 Extension 40 Rotation Left 80 Rotation Right 80 Lateral Flexion Left 65 Lateral Flexion Right 60 ROM Limitations Soft Tissue Tightness Pain Comments localized Pain increased with Extension> flexion> side flexion Hip Goniometric Range of Motion Hip Measured in Degrees Left Active Hip ROM WFL Yes Right Hip ROM WFL Yes PT-OP-L Special Tests Start: 07/27/18 08:34 Freq: Status: Active Protocol: Document 07/26/18 17:30 EA (Rec: 07/27/18 09:34 EA [id number]) Special Tests Lumbar Spine Special Tests Other- 1 Test Results Neg Gaenlen's Slump Test Results negative Straight Leg Raise Test Results negative Compression Test Results negative PT-OP-M Strength Start: 07/27/18 08:34 Freq: Status: Active Protocol: Document 07/26/18 17:30 EA (Rec: 07/27/18 09:34 EA [id number]) Hip Strength Hip Manual Muscle Testing Right Reason Not Measured WFL Left Reason Not Measured WFL PT-OP-Q Treatments Start: 07/27/18 08:34 Freq: Status: Active Protocol: Document 09/23/18 14:43 AMH (Rec: 09/23/18 14:51 AMH [email or web address]) Cardio Equipment Recumbent Bicycle Duration (Minutes) 5 Gym Equipment Shuttle Recovery Unilateral Squats Details single leg squats Shuttle Recovery Platform Stable Reps/Time 2 x 10 reps Bilateral Squats Details bilateral squats Resistance 50# Reps/Time 3x 10 reps Therapeutic Exercises Supine Exercises figure 4 stretch Supine Exercise Name figure 4 stretch Side left Reps/Minutes 30 sec 7 Supine Exercise Name isometric ball squeeze Reps/Minutes x 10 reps Comments with TA facilitation pelvic tilt Supine Exercise Name w/ bridging progression Side bilateral Reps/Minutes 10x Sitting Exercises PT ball LE marching Side bilateral Equipment Used 65 cm ball Reps/Minutes 3 min PT ball Pelvic clocks Resistance 65 cm Reps/Minutes 3 min 3 Sitting Exercise Name lean and touch floor: stretch lumbar Reps/Minutes x 30SH x 3 Cervical Sitting Exercise Name seated on ball cervical neck stretching Standing Exercises 2 Standing Exercise Name standing bilateral shoulder extension Reps/Minutes 2 x 10 reps 1 Standing Exercise Name standing rows with theraband Equipment Used level 1 Reps/Minutes 2 x 10 Manual Therapy Treatment Soft Tissue Mobilization 3 Body Location Paralumbars, Both QL Mobilization Type Myofascial Release Rolling Sustained Pressure Intensity/Depth Moderate Body Position Sidelying Comments foucs on R side PT-OP-R Modalities Start: 07/27/18 08:34 Freq: Status: Active Protocol: Document 09/21/18 11:15 LR (Rec: 09/21/18 14:29 LR [email or web address]) Electric Stimulation Electric Stimulation Interferential Current (IFC) Body Location Paralumbars Duration (Minutes) 15 Intensity 15 Patient Position Sitting Combined With Heat/Cold Hot Pack Comments Pre-cautions: Electrodes not directly place to right upper gluteal electronic devices. PT-OP-T Assessment and Plan Start: 07/27/18 08:34 Freq: Status: Active Protocol: Document 09/23/18 14:43 AMH (Rec: 09/23/18 14:51 AMH [email or web address]) Physical Therapy Assessment Assessment Summary Assessment Jaime seemed to be helping today as Subha reports decreased pain with it. She was able to tolerate resistance band rows and bilateral shoulder extension with core activation. She responds really well to ball exercises Physical Therapy Plan Frequency and Duration Frequency of Treatment 2x/Week Duration of Treatment 2 months Plan of Care Start Date 09/21/18 Plan of Care End Date 11/21/18 Therapeutic Interventions Therapeutic Interventions Aquatic Therapy Balance Training Home Exercise Program Joint Mobilizations Manual Therapy Patient/Caregiver Education Self-Care/Home Management Soft Tissue Mobilization Taping Therapeutic Activities Therapeutic Exercises Modalities Cold Pack/Ice Massage Electric Stimulation Hot Packs Traction- Mechanical Ultrasound Next Visit Focus/Plan Next Note Type Treatment Note Next Visit Plan Progress core stability program, review body mechanics with bed mobility.
--- NOTE | 2018-09-27 15:38 | PT.OTN ---
Current Diagnoses Low back pain (09/27/18) Physical Therapy Treatment Note PT-OP-A Visit Information Start: 07/27/18 08:34 Freq: Status: Active Protocol: Document 09/27/18 14:30 BS (Rec: 09/27/18 14:47 BS [email or web address]) Out-Patient Physical Therapy Visit Information Visit Information Visit Type Treatment Note Visit Start Time 13:45 Visit Stop Time 14:40 Total Visit Minutes 45 Visit Number 15 PT-OP-B Current Condition Start: 07/27/18 08:34 Freq: Status: Active Protocol: Document 07/26/18 17:30 EA (Rec: 07/27/18 09:34 EA [id number]) Current Condition History of Current Condition Onset Date June/2018 Current Complaints Localized low back rated 6/10 History of Current Condition Present condition started just before the end of May 2018 with no known reasons. Patient reports she does regular sitted cardio machines exercises and follow videos yoga exercises that includes supine leg ups and other core exerises. Pt reports she does looks after two grand kids but aware about body mechanics. Patient denies any loss of function to both LE's; states pain is increased with long duration of standing, brushing teeth and washing dishes. She also reports difficulty of getting up in the bed due to aches and back sore that mostly in the morning; states pain decreased with help of heating pads. Patient denies any X-ray or any low back diagnostic imaging performed in the past. Prior Treatments and Tests Oral steroids for back pain: Had negative reactions Future Testing and Treatments Planned None identified. Treatment Goals Patient/Caregiver Goals Patient would like to eliminate low back pain so she could back to her usual daily activities with no limitation . 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 Current Functional Impairments (Reported) Functional Limitations- ADL's Independent with limitation to bending and lifting Functional Limitations- Mobility/Gait Indep with no AD but limited due to to increased in pain Functional Limitations- Work/School Limited teaching ability due to increased in pain PT-OP-C Subjective Start: 07/27/18 08:34 Freq: Status: Active Protocol: Document 09/27/18 14:30 BS (Rec: 09/27/18 14:47 BS [email or web address]) OP-PT Subjective Patient Comments Patient Comments Pt reports that her LBP has been intermittent and inconsistent from day to day. She states that bending over and prolonged standing increase her bilateral LBP. PT-OP-G Mobility & Gait Start: 07/27/18 08:34 Freq: Status: Active Protocol: Document 07/26/18 17:30 EA (Rec: 07/27/18 09:34 EA [id number]) OP Gait Assessment Comments Gait Comments No gait deviation noted Stair Climbing Evaluation Comments Stair Climbing Comments No stairs difficulty PT-OP-J Posture/Palpation/Skin Start: 07/27/18 08:34 Freq: Status: Active Protocol: Document 07/26/18 17:30 EA (Rec: 07/27/18 09:34 EA [id number]) Posture Evaluation Comments Posture Comments Good general posture with slight increased in lumbar lordosis Palpation Assessment Location One Palpation Location Both paralumbars, QL Palpation Findings Soft Tissue Tightness Muscle Guarding Tenderness Skin Assessment Other Assessments Skin Assessment Comments Palpable electronic device placed to R upper gluteal area PT-OP-K Range of Motion Start: 07/27/18 08:34 Freq: Status: Active Protocol: Document 07/26/18 17:30 EA (Rec: 07/27/18 09:34 EA [id number]) Lumbar Spine Range of Motion Lumbar Spine Active Percentage Testing Position Supine Flexion 70 Extension 40 Rotation Left 80 Rotation Right 80 Lateral Flexion Left 65 Lateral Flexion Right 60 ROM Limitations Soft Tissue Tightness Pain Comments localized Pain increased with Extension> flexion> side flexion Hip Goniometric Range of Motion Hip Measured in Degrees Left Active Hip ROM WFL Yes Right Hip ROM WFL Yes PT-OP-L Special Tests Start: 07/27/18 08:34 Freq: Status: Active Protocol: Document 07/26/18 17:30 EA (Rec: 07/27/18 09:34 EA [id number]) Special Tests Lumbar Spine Special Tests Other- 1 Test Results Neg Gaenlen's Slump Test Results negative Straight Leg Raise Test Results negative Compression Test Results negative PT-OP-M Strength Start: 07/27/18 08:34 Freq: Status: Active Protocol: Document 07/26/18 17:30 EA (Rec: 07/27/18 09:34 EA [id number]) Hip Strength Hip Manual Muscle Testing Right Reason Not Measured WFL Left Reason Not Measured WFL PT-OP-Q Treatments Start: 07/27/18 08:34 Freq: Status: Active Protocol: Document 09/27/18 14:30 BS (Rec: 09/27/18 14:47 BS [email or web address]) Cardio Equipment Recumbent Bicycle Duration (Minutes) 5 Seat Position 9 Gym Equipment Shuttle Recovery Bilateral Squats Details bilateral squats Resistance 50# Reps/Time 3x 10 reps Therapeutic Exercises Sitting Exercises PT ball LE marching Side bilateral Equipment Used 65 cm ball Reps/Minutes 2 min Comments alternating marches PT ball Pelvic clocks Sitting Exercise Name CW, CCW, posterior pelvic tilt Resistance 65 cm Reps/Minutes 1 min each Comments VCs for breathing 3 Sitting Exercise Name lean and touch floor: stretch lumbar Reps/Minutes x5 2 Sitting Exercise Name [place] Ball LAQs Side bilateral Equipment Used 65 cm ball Reps/Minutes x15 each LE Other Exercises Darian pose Other Exercise Name darian pose Reps/Minutes x30 sec stretch cat/camel Other Exercise Name Cat/Camel Reps/Minutes x10 Comments VCs for correct technique Manual Therapy Treatment Soft Tissue Mobilization 3 Body Location Bilateral Lumbar Paraspinals Mobilization Type Myofascial Release Sustained Pressure Intensity/Depth Moderate Body Position Prone body pillow Comments L side more painful than R today. Joint Mobilizations 2 Joint Lumbar Gapping Grade I Body Position Prone Comments prone on body pillow. Sustained hold x30 sec each for gapping. PT-OP-R Modalities Start: 07/27/18 08:34 Freq: Status: Active Protocol: Document 09/27/18 14:30 BS (Rec: 09/27/18 14:47 BS [email or web address]) Electric Stimulation Electric Stimulation Interferential Current (IFC) Body Location Paralumbars Duration (Minutes) 10 Patient Position Prone Combined With Heat/Cold Hot Pack Comments prone over body pillow. Pre- cautions: Electrodes not directly place to right upper gluteal electronic devices. PT-OP-T Assessment and Plan Start: 07/27/18 08:34 Freq: Status: Active Protocol: Document 09/27/18 14:30 BS (Rec: 09/27/18 14:47 BS [email or web address]) Physical Therapy Assessment Assessment Summary Assessment Pt reports she has been consistent with HEP with [place] ball. She has purchased a TENS unit to use at home for pain reduction. Pt tolerated core stabilization exercises today. Physical Therapy Plan Frequency and Duration Frequency of Treatment 2x/Week Duration of Treatment 2 months Plan of Care Start Date 09/21/18 Plan of Care End Date 11/21/18 Therapeutic Interventions Therapeutic Interventions Aquatic Therapy Balance Training Home Exercise Program Joint Mobilizations Manual Therapy Patient/Caregiver Education Self-Care/Home Management Soft Tissue Mobilization Taping Therapeutic Activities Therapeutic Exercises Modalities Cold Pack/Ice Massage Electric Stimulation Hot Packs Traction- Mechanical Ultrasound Next Visit Focus/Plan Next Note Type Treatment Note Next Visit Plan Progress core stabilization as tolerated by patient. Pt continues to report pain relief following STM and IFC.
--- NOTE | 2018-09-30 15:59 | PT.OTN ---
Current Diagnoses Low back pain (09/30/18) Physical Therapy Treatment Note PT-OP-A Visit Information Start: 07/27/18 08:34 Freq: Status: Active Protocol: Document 09/30/18 13:58 BS (Rec: 09/30/18 14:01 BS [id number]) Out-Patient Physical Therapy Visit Information Visit Information Visit Type Treatment Note Visit Start Time 13:55 Visit Stop Time 14:50 Total Visit Minutes 55 Visit Number 16 PT-OP-B Current Condition Start: 07/27/18 08:34 Freq: Status: Active Protocol: Document 07/26/18 17:30 EA (Rec: 07/27/18 09:34 EA [id number]) Current Condition History of Current Condition Onset Date June/2018 Current Complaints Localized low back rated 6/10 History of Current Condition Present condition started just before the end of May 2018 with no known reasons. Patient reports she does regular sitted cardio machines exercises and follow videos yoga exercises that includes supine leg ups and other core exerises. Pt reports she does looks after two grand kids but aware about body mechanics. Patient denies any loss of function to both LE's; states pain is increased with long duration of standing, brushing teeth and washing dishes. She also reports difficulty of getting up in the bed due to aches and back sore that mostly in the morning; states pain decreased with help of heating pads. Patient denies any X-ray or any low back diagnostic imaging performed in the past. Prior Treatments and Tests Oral steroids for back pain: Had negative reactions Future Testing and Treatments Planned None identified. Treatment Goals Patient/Caregiver Goals Patient would like to eliminate low back pain so she could back to her usual daily activities with no limitation . 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 Current Functional Impairments (Reported) Functional Limitations- ADL's Independent with limitation to bending and lifting Functional Limitations- Mobility/Gait Indep with no AD but limited due to to increased in pain Functional Limitations- Work/School Limited teaching ability due to increased in pain PT-OP-C Subjective Start: 07/27/18 08:34 Freq: Status: Active Protocol: Document 09/30/18 13:58 BS (Rec: 09/30/18 15:54 BS [email or web address]) OP-PT Subjective Patient Comments Patient Comments Pt reports that she has had a good week. Her back feels good and she has been walking more . PT-OP-G Mobility & Gait Start: 07/27/18 08:34 Freq: Status: Active Protocol: Document 07/26/18 17:30 EA (Rec: 07/27/18 09:34 EA [id number]) OP Gait Assessment Comments Gait Comments No gait deviation noted Stair Climbing Evaluation Comments Stair Climbing Comments No stairs difficulty PT-OP-J Posture/Palpation/Skin Start: 07/27/18 08:34 Freq: Status: Active Protocol: Document 07/26/18 17:30 EA (Rec: 07/27/18 09:34 EA [id number]) Posture Evaluation Comments Posture Comments Good general posture with slight increased in lumbar lordosis Palpation Assessment Location One Palpation Location Both paralumbars, QL Palpation Findings Soft Tissue Tightness Muscle Guarding Tenderness Skin Assessment Other Assessments Skin Assessment Comments Palpable electronic device placed to R upper gluteal area PT-OP-K Range of Motion Start: 07/27/18 08:34 Freq: Status: Active Protocol: Document 07/26/18 17:30 EA (Rec: 07/27/18 09:34 EA [id number]) Lumbar Spine Range of Motion Lumbar Spine Active Percentage Testing Position Supine Flexion 70 Extension 40 Rotation Left 80 Rotation Right 80 Lateral Flexion Left 65 Lateral Flexion Right 60 ROM Limitations Soft Tissue Tightness Pain Comments localized Pain increased with Extension> flexion> side flexion Hip Goniometric Range of Motion Hip Measured in Degrees Left Active Hip ROM WFL Yes Right Hip ROM WFL Yes PT-OP-L Special Tests Start: 07/27/18 08:34 Freq: Status: Active Protocol: Document 07/26/18 17:30 EA (Rec: 07/27/18 09:34 EA [id number]) Special Tests Lumbar Spine Special Tests Other- 1 Test Results Neg Gaenlen's Slump Test Results negative Straight Leg Raise Test Results negative Compression Test Results negative PT-OP-M Strength Start: 07/27/18 08:34 Freq: Status: Active Protocol: Document 07/26/18 17:30 EA (Rec: 07/27/18 09:34 EA [id number]) Hip Strength Hip Manual Muscle Testing Right Reason Not Measured WFL Left Reason Not Measured WFL PT-OP-Q Treatments Start: 07/27/18 08:34 Freq: Status: Active Protocol: Document 09/30/18 13:58 BS (Rec: 09/30/18 15:54 BS [email or web address]) Therapeutic Exercises Supine Exercises 8 Supine Exercise Name Hip adduction squeeze Equipment Used small ball between knees Reps/Minutes x15, 3 hold Comments VCs TA contraction 3 Supine Exercise Name Clamshells Equipment Used #1 band Reps/Minutes x12 Comments VCs pain free range 2 Supine Exercise Name Lower trunk rotation Equipment Used small red ball Reps/Minutes x12 each way 1 Supine Exercise Name 90/90 bridges w/ israeli ball Equipment Used small red ball Reps/Minutes x15 Sitting Exercises PT ball LE marching Side bilateral Equipment Used small red ball Reps/Minutes 2x15 Comments alternating marches PT ball Pelvic clocks Sitting Exercise Name CW, CCW, posterior pelvic tilt Resistance small red ball Reps/Minutes 5 min Comments VCs for TA contraction 3 Sitting Exercise Name lean and touch floor: stretch lumbar Equipment Used small red ball Reps/Minutes x5 2 Sitting Exercise Name [place] Ball LAQs Side bilateral Equipment Used small red ball Reps/Minutes x15 each LE Other Exercises Darian pose Other Exercise Name darian pose Reps/Minutes x30 sec stretch cat/camel Other Exercise Name Cat/Camel Reps/Minutes x10 Comments VCs for correct technique Therapeutic Activity Therapeutic Activity 3 Name Supine->sit bed transfer Reps/Minutes x2 Comments VCs for sequencing utilizing log roll technique. PT-OP-R Modalities Start: 07/27/18 08:34 Freq: Status: Active Protocol: Document 09/30/18 13:58 BS (Rec: 09/30/18 15:54 BS [email or web address]) Electric Stimulation Electric Stimulation Interferential Current (IFC) Body Location Paralumbars Duration (Minutes) 10 Patient Position Prone Combined With Heat/Cold Hot Pack Comments prone over body pillow. Pre- cautions: Electrodes not directly place to right upper gluteal electronic devices. PT-OP-T Assessment and Plan Start: 07/27/18 08:34 Freq: Status: Active Protocol: Document 09/30/18 13:58 BS (Rec: 09/30/18 15:54 BS [email or web address]) Physical Therapy Assessment Assessment Summary Assessment Pt tolerated session well today with no complaints of pain, although she has anxiety anticipating pain and is nearly tearful at times. Physical Therapy Plan Next Visit Focus/Plan Next Note Type Treatment Note Next Visit Plan Progress core stabilization exercises. Continue to work on log roll technique to protect low back.
--- NOTE | 2018-10-06 18:02 | PT.OTN ---
Current Diagnoses Low back pain (10/06/18) Physical Therapy Treatment Note PT-OP-A Visit Information Start: 07/27/18 08:34 Freq: Status: Active Protocol: Document 10/06/18 17:57 [facility] (Rec: 10/06/18 18:02 [facility] [id number]) Out-Patient Physical Therapy Visit Information Visit Information Visit Type Treatment Note Visit Start Time 14:00 Visit Stop Time 14:55 Total Visit Minutes 55 Visit Number 17 PT-OP-B Current Condition Start: 07/27/18 08:34 Freq: Status: Active Protocol: Document 07/26/18 17:30 EA (Rec: 07/27/18 09:34 EA [id number]) Current Condition History of Current Condition Onset Date June/2018 Current Complaints Localized low back rated 6/10 History of Current Condition Present condition started just before the end of May 2018 with no known reasons. Patient reports she does regular sitted cardio machines exercises and follow videos yoga exercises that includes supine leg ups and other core exerises. Pt reports she does looks after two grand kids but aware about body mechanics. Patient denies any loss of function to both LE's; states pain is increased with long duration of standing, brushing teeth and washing dishes. She also reports difficulty of getting up in the bed due to aches and back sore that mostly in the morning; states pain decreased with help of heating pads. Patient denies any X-ray or any low back diagnostic imaging performed in the past. Prior Treatments and Tests Oral steroids for back pain: Had negative reactions Future Testing and Treatments Planned None identified. Treatment Goals Patient/Caregiver Goals Patient would like to eliminate low back pain so she could back to her usual daily activities with no limitation . 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 Current Functional Impairments (Reported) Functional Limitations- ADL's Independent with limitation to bending and lifting Functional Limitations- Mobility/Gait Indep with no AD but limited due to to increased in pain Functional Limitations- Work/School Limited teaching ability due to increased in pain PT-OP-C Subjective Start: 07/27/18 08:34 Freq: Status: Active Protocol: Document 10/06/18 17:57 [facility] (Rec: 10/06/18 18:02 [facility] [id number]) OP-PT Subjective Patient Comments Patient Comments Pt reports pain is up and down and the later in the day, her pain is worse. PT-OP-G Mobility & Gait Start: 07/27/18 08:34 Freq: Status: Active Protocol: Document 07/26/18 17:30 EA (Rec: 07/27/18 09:34 EA [id number]) OP Gait Assessment Comments Gait Comments No gait deviation noted Stair Climbing Evaluation Comments Stair Climbing Comments No stairs difficulty PT-OP-J Posture/Palpation/Skin Start: 07/27/18 08:34 Freq: Status: Active Protocol: Document 07/26/18 17:30 EA (Rec: 07/27/18 09:34 EA [id number]) Posture Evaluation Comments Posture Comments Good general posture with slight increased in lumbar lordosis Palpation Assessment Location One Palpation Location Both paralumbars, QL Palpation Findings Soft Tissue Tightness Muscle Guarding Tenderness Skin Assessment Other Assessments Skin Assessment Comments Palpable electronic device placed to R upper gluteal area PT-OP-K Range of Motion Start: 07/27/18 08:34 Freq: Status: Active Protocol: Document 07/26/18 17:30 EA (Rec: 07/27/18 09:34 EA [id number]) Lumbar Spine Range of Motion Lumbar Spine Active Percentage Testing Position Supine Flexion 70 Extension 40 Rotation Left 80 Rotation Right 80 Lateral Flexion Left 65 Lateral Flexion Right 60 ROM Limitations Soft Tissue Tightness Pain Comments localized Pain increased with Extension> flexion> side flexion Hip Goniometric Range of Motion Hip Measured in Degrees Left Active Hip ROM WFL Yes Right Hip ROM WFL Yes PT-OP-L Special Tests Start: 07/27/18 08:34 Freq: Status: Active Protocol: Document 07/26/18 17:30 EA (Rec: 07/27/18 09:34 EA [id number]) Special Tests Lumbar Spine Special Tests Other- 1 Test Results Neg Gaenlen's Slump Test Results negative Straight Leg Raise Test Results negative Compression Test Results negative PT-OP-M Strength Start: 07/27/18 08:34 Freq: Status: Active Protocol: Document 07/26/18 17:30 EA (Rec: 07/27/18 09:34 EA [id number]) Hip Strength Hip Manual Muscle Testing Right Reason Not Measured WFL Left Reason Not Measured WFL PT-OP-Q Treatments Start: 07/27/18 08:34 Freq: Status: Active Protocol: Document 10/06/18 17:57 [facility] (Rec: 10/06/18 18:02 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 (Rec: 10/06/18 18:02 [facility] [id number]) Electric Stimulation Electric Stimulation Interferential Current (IFC) Body Location Paralumbars Duration (Minutes) 15 Patient Position Sidelying Combined With Heat/Cold Hot Pack Comments Pt kept MHP on for longer while watching grandchild at PT Pre-cautions: Electrodes not directly place to right upper gluteal electronic devices. PT-OP-T Assessment and Plan Start: 07/27/18 08:34 Freq: Status: Active Protocol: Document 10/06/18 17:57 [facility] (Rec: 10/06/18 18:02 [facility] [id number]) Physical Therapy Assessment Goals Four Impairment No HEP in place Varnish [employer]er Goal (LTG) Patient will exhibit independent safe home exercise program LTG Duration achieved progressing as tolerated Three Impairment Impaired sitting tolerance with less than 10 mins Varnish [employer]er Goal (LTG) Patient will sit more than 1 hour with no increase in symptoms LTG Duration 4 wks Two Impairment Impaired Lumbosacral ROM Varnish Cooker Goal (LTG) Patient will exhibits near functional range lumbosacral ROM to enhance functional mobility without limitation LTG Duration 4 wks One Impairment Oswetry low back impairement scale of 34/50 Varnish [employer]er Goal (LTG) Patient will have Oswetry low back impairment scale of < 15/ 50 LTG Duration 4 wks Assessment Summary Assessment Pt required cueing form for bending over and cueing with cat and camel for core activation as she said it cane be a painful exercise. She was able to tolerate PNF and reported it feeling good. Physical Therapy Plan Frequency and Duration Frequency of Treatment 2x/Week Duration of Treatment 2 months Plan of Care Start Date 09/21/18 Plan of Care End Date 11/21/18 Next Visit Focus/Plan Next Note Type Treatment Note Next Visit Plan Progress core stabilization exercises. Continue to work on log roll technique to protect low back.
--- NOTE | 2018-10-26 13:49 | PT.OTN ---
Current Diagnoses Low back pain (10/26/18) Physical Therapy Treatment Note PT-OP-A Visit Information Start: 07/27/18 08:34 Freq: Status: Active Protocol: Document 10/26/18 13:00 [facility] (Rec: 10/26/18 13:49 [facility] [id number]) Out-Patient Physical Therapy Visit Information Visit Information Visit Type Treatment Note Visit Start Time 13:00 Visit Stop Time 13:55 Total Visit Minutes 55 Visit Number 18 PT-OP-B Current Condition Start: 07/27/18 08:34 Freq: Status: Active Protocol: Document 07/26/18 17:30 EA (Rec: 07/27/18 09:34 EA [id number]) Current Condition History of Current Condition Onset Date June/2018 Current Complaints Localized low back rated 6/10 History of Current Condition Present condition started just before the end of May 2018 with no known reasons. Patient reports she does regular sitted cardio machines exercises and follow videos yoga exercises that includes supine leg ups and other core exerises. Pt reports she does looks after two grand kids but aware about body mechanics. Patient denies any loss of function to both LE's; states pain is increased with long duration of standing, brushing teeth and washing dishes. She also reports difficulty of getting up in the bed due to aches and back sore that mostly in the morning; states pain decreased with help of heating pads. Patient denies any X-ray or any low back diagnostic imaging performed in the past. Prior Treatments and Tests Oral steroids for back pain: Had negative reactions Future Testing and Treatments Planned None identified. Treatment Goals Patient/Caregiver Goals Patient would like to eliminate low back pain so she could back to her usual daily activities with no limitation . 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 in the chair even with a pillow to stabilize PT-OP-G Mobility & Gait Start: 07/27/18 08:34 Freq: Status: Active Protocol: Document 07/26/18 17:30 EA (Rec: 07/27/18 09:34 EA [id number]) OP Gait Assessment Comments Gait Comments No gait deviation noted Stair Climbing Evaluation Comments Stair Climbing Comments No stairs difficulty PT-OP-J Posture/Palpation/Skin Start: 07/27/18 08:34 Freq: Status: Active Protocol: Document 07/26/18 17:30 EA (Rec: 07/27/18 09:34 EA [id number]) Posture Evaluation Comments Posture Comments Good general posture with slight increased in lumbar lordosis Palpation Assessment Location One Palpation Location Both paralumbars, QL Palpation Findings Soft Tissue Tightness Muscle Guarding Tenderness Skin Assessment Other Assessments Skin Assessment Comments Palpable electronic device placed to R upper gluteal area PT-OP-K Range of Motion Start: 07/27/18 08:34 Freq: Status: Active Protocol: Document 07/26/18 17:30 EA (Rec: 07/27/18 09:34 EA [id number]) Lumbar Spine Range of Motion Lumbar Spine Active Percentage Testing Position Supine Flexion 70 Extension 40 Rotation Left 80 Rotation Right 80 Lateral Flexion Left 65 Lateral Flexion Right 60 ROM Limitations Soft Tissue Tightness Pain Comments localized Pain increased with Extension> flexion> side flexion Hip Goniometric Range of Motion Hip Measured in Degrees Left Active Hip ROM WFL Yes Right Hip ROM WFL Yes PT-OP-L Special Tests Start: 07/27/18 08:34 Freq: Status: Active Protocol: Document 07/26/18 17:30 EA (Rec: 07/27/18 09:34 EA [id number]) Special Tests Lumbar Spine Special Tests Other- 1 Test Results Neg Gaenlen's Slump Test Results negative Straight Leg Raise Test Results negative Compression Test Results negative PT-OP-M Strength Start: 07/27/18 08:34 Freq: Status: Active Protocol: Document 07/26/18 17:30 EA (Rec: 07/27/18 09:34 EA [id number]) Hip Strength Hip Manual Muscle Testing Right Reason Not Measured WFL Left Reason Not Measured WFL PT-OP-Q Treatments Start: 07/27/18 08:34 Freq: Status: Active Protocol: Document 10/26/18 13:00 [facility] (Rec: 10/26/18 13:49 [facility] [id number]) Therapeutic Exercises Supine Exercises 4 Supine Exercise Name marching Side bilateral Reps/Minutes 10 Comments focus on core 3 Supine Exercise Name BKFO Reps/Minutes 15 Comments focus on core 2 Supine Exercise Name Lower trunk rotation Reps/Minutes x12 each way 1 Supine Exercise Name bridges w/core Reps/Minutes 5 Sitting Exercises 1 Sitting Exercise Name fwd bend stretch Reps/Minutes 30 sec ea Standing Exercises 7 Standing Exercise Name squat Reps/Minutes 15 Manual Therapy Treatment Soft Tissue Mobilization 1 Body Location QL L Mobilization Type Rolling Body Position Sidelying Manual Techniques 1 Type post depression stretching Neuro Re-Education Treatment Other Activities PNF Details ant elevation/post depression Comments rhythmic initiation B & B concentrics Self-Care/Home Management Treatment Education Patient Education Home Exercise Program Posture Other Education lifting mechanics & squatting PT-OP-R Modalities Start: 07/27/18 08:34 Freq: Status: Active Protocol: Document 10/26/18 13:00 [facility] (Rec: 10/26/18 13:49 [facility] [id number]) Electric Stimulation Electric Stimulation Interferential Current (IFC) Body Location Paralumbars Duration (Minutes) 15 Intensity 30 Patient Position Sidelying Combined With Heat/Cold Hot Pack Comments Pt kept MHP on for longer while watching grandchild at PT Pre-cautions: Electrodes not directly place to right upper gluteal electronic devices. PT-OP-T Assessment and Plan Start: 07/27/18 08:34 Freq: Status: Active Protocol: Document 10/26/18 13:00 [facility] (Rec: 10/26/18 13:49 [facility] [id number]) Physical Therapy Assessment Goals Four Impairment No HEP in place [facility] Goal (LTG) Patient will exhibit independent safe home exercise program LTG Duration achieved progressing as tolerated Three Impairment Impaired sitting tolerance with less than 10 mins [facility] Goal (LTG) Patient will sit more than 1 hour with no increase in symptoms LTG Duration 4 wks Two Impairment Impaired Lumbosacral ROM [facility] Goal (LTG) Patient will exhibits near functional range lumbosacral ROM to enhance functional mobility without limitation LTG Duration 4 wks One Impairment Oswetry low back impairement scale of 34/50 [facility] Goal (LTG) Patient will have Oswetry low back impairment scale of < 15/ 50 LTG Duration 4 wks Assessment Summary Assessment Pt cont to require cueing for staying in painfree range with exercises. She was able to tolerate core stability exercises today without c/o pain except with bridges so they were stopped. Pt reports relief and fatigue with post depression Physical Therapy Plan Frequency and Duration Frequency of Treatment 2x/Week Duration of Treatment 2 months Plan of Care Start Date 09/21/18 Plan of Care End Date 11/21/18 Next Visit Focus/Plan Next Note Type Treatment Note Next Visit Plan cont to advance core, review HEP & review log roll
--- NOTE | 2018-10-28 17:39 | PT.OTN ---
Current Diagnoses Low back pain (10/28/18) Physical Therapy Treatment Note PT-OP-A Visit Information Start: 07/27/18 08:34 Freq: Status: Active Protocol: Document 10/28/18 17:28 [facility] (Rec: 10/28/18 17:39 [facility] [id number]) Out-Patient Physical Therapy Visit Information Visit Information Visit Type Treatment Note Visit Start Time 14:30 Visit Stop Time 15:15 Total Visit Minutes 45 Visit Number 19 PT-OP-B Current Condition Start: 07/27/18 08:34 Freq: Status: Active Protocol: Document 07/26/18 17:30 EA (Rec: 07/27/18 09:34 EA [id number]) Current Condition History of Current Condition Onset Date June/2018 Current Complaints Localized low back rated 6/10 History of Current Condition Present condition started just before the end of May 2018 with no known reasons. Patient reports she does regular sitted cardio machines exercises and follow videos yoga exercises that includes supine leg ups and other core exerises. Pt reports she does looks after two grand kids but aware about body mechanics. Patient denies any loss of function to both LE's; states pain is increased with long duration of standing, brushing teeth and washing dishes. She also reports difficulty of getting up in the bed due to aches and back sore that mostly in the morning; states pain decreased with help of heating pads. Patient denies any X-ray or any low back diagnostic imaging performed in the past. Prior Treatments and Tests Oral steroids for back pain: Had negative reactions Future Testing and Treatments Planned None identified. Treatment Goals Patient/Caregiver Goals Patient would like to eliminate low back pain so she could back to her usual daily activities with no limitation . 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 Current Functional Impairments (Reported) Functional Limitations- ADL's Independent with limitation to bending and lifting Functional Limitations- Mobility/Gait Indep with no AD but limited due to to increased in pain Functional Limitations- Work/School Limited teaching ability due to increased in pain PT-OP-C Subjective Start: 07/27/18 08:34 Freq: Status: Active Protocol: Document 10/28/18 17:28 [facility] (Rec: 10/28/18 17:39 [facility] [id number]) OP-PT Subjective Patient Comments Patient Comments has been having more pain since her asthma attack, she did get to see her doctor and she wants her to continue with PT PT-OP-G Mobility & Gait Start: 07/27/18 08:34 Freq: Status: Active Protocol: Document 07/26/18 17:30 EA (Rec: 07/27/18 09:34 EA [id number]) OP Gait Assessment Comments Gait Comments No gait deviation noted Stair Climbing Evaluation Comments Stair Climbing Comments No stairs difficulty PT-OP-J Posture/Palpation/Skin Start: 07/27/18 08:34 Freq: Status: Active Protocol: Document 07/26/18 17:30 EA (Rec: 07/27/18 09:34 EA [id number]) Posture Evaluation Comments Posture Comments Good general posture with slight increased in lumbar lordosis Palpation Assessment Location One Palpation Location Both paralumbars, QL Palpation Findings Soft Tissue Tightness Muscle Guarding Tenderness Skin Assessment Other Assessments Skin Assessment Comments Palpable electronic device placed to R upper gluteal area PT-OP-K Range of Motion Start: 07/27/18 08:34 Freq: Status: Active Protocol: Document 07/26/18 17:30 EA (Rec: 07/27/18 09:34 EA [id number]) Lumbar Spine Range of Motion Lumbar Spine Active Percentage Testing Position Supine Flexion 70 Extension 40 Rotation Left 80 Rotation Right 80 Lateral Flexion Left 65 Lateral Flexion Right 60 ROM Limitations Soft Tissue Tightness Pain Comments localized Pain increased with Extension> flexion> side flexion Hip Goniometric Range of Motion Hip Measured in Degrees Left Active Hip ROM WFL Yes Right Hip ROM WFL Yes PT-OP-L Special Tests Start: 07/27/18 08:34 Freq: Status: Active Protocol: Document 07/26/18 17:30 EA (Rec: 07/27/18 09:34 EA [id number]) Special Tests Lumbar Spine Special Tests Other- 1 Test Results Neg Gaenlen's Slump Test Results negative Straight Leg Raise Test Results negative Compression Test Results negative PT-OP-M Strength Start: 07/27/18 08:34 Freq: Status: Active Protocol: Document 07/26/18 17:30 EA (Rec: 07/27/18 09:34 EA [id number]) Hip Strength Hip Manual Muscle Testing Right Reason Not Measured WFL Left Reason Not Measured WFL PT-OP-Q Treatments Start: 07/27/18 08:34 Freq: Status: Active Protocol: Document 10/28/18 17:28 [facility] (Rec: 10/28/18 17:39 [facility] [id number]) Cardio Equipment Recumbent Elliptical (Biodex) Duration (Minutes) 5 Resistance level 2 Therapeutic Exercises Supine Exercises figure 4 stretch Supine Exercise Name figure 4 stretch 3 Supine Exercise Name BKFO Reps/Minutes 15 Comments focus on core 2 Supine Exercise Name Lower trunk rotation Reps/Minutes x12 each way 1 Supine Exercise Name bridges w/core Reps/Minutes 5 Sitting Exercises 1 Sitting Exercise Name fwd bend stretch Reps/Minutes 30 sec ea Other Exercises cat/camel Other Exercise Name Cat/Camel Reps/Minutes x12 Comments VCs for correct technique & core Manual Therapy Treatment Soft Tissue Mobilization 3 Body Location Bilateral Lumbar Paraspinals Mobilization Type Myofascial Release Sustained Pressure Intensity/Depth Moderate Body Position Sidelying PT-OP-R Modalities Start: 07/27/18 08:34 Freq: Status: Active Protocol: Document 10/26/18 13:00 [facility] (Rec: 10/26/18 13:49 [facility] [id number]) Electric Stimulation Electric Stimulation Interferential Current (IFC) Body Location Paralumbars Duration (Minutes) 15 Intensity 30 Patient Position Sidelying Combined With Heat/Cold Hot Pack Comments Pt kept MHP on for longer while watching grandchild at PT Pre-cautions: Electrodes not directly place to right upper gluteal electronic devices. PT-OP-T Assessment and Plan Start: 07/27/18 08:34 Freq: Status: Active Protocol: Document 10/28/18 17:28 [facility] (Rec: 10/28/18 17:39 [facility] [id number]) Physical Therapy Assessment Assessment Summary Assessment improved ability for for bridges with cues fortrying to go one vertebrae at a time. Encourage continued stretching for home. Log roll was reviewed today Physical Therapy Plan Frequency and Duration Frequency of Treatment 2x/Week Duration of Treatment 2 months Plan of Care Start Date 09/21/18 Plan of Care End Date 11/21/18 Therapeutic Interventions Therapeutic Interventions Aquatic Therapy Balance Training Home Exercise Program Joint Mobilizations Manual Therapy Patient/Caregiver Education Self-Care/Home Management Soft Tissue Mobilization Taping Therapeutic Activities Therapeutic Exercises Modalities Cold Pack/Ice Massage Electric Stimulation Hot Packs Traction- Mechanical Ultrasound Next Visit Focus/Plan Next Note Type Treatment Note Next Visit Plan cont to advance core, review HEP
--- NOTE | 2018-11-02 13:43 | PT.OTN ---
Current Diagnoses Low back pain (11/02/18) Physical Therapy Treatment Note PT-OP-A Visit Information Start: 07/27/18 08:34 Freq: Status: Active Protocol: Document 11/02/18 12:54 LR (Rec: 11/02/18 13:43 [facility] [id number]) Out-Patient Physical Therapy Visit Information Visit Information Visit Type Treatment Note Visit Note 01/12 Visit Start Time 13:00 Visit Stop Time 13:55 Total Visit Minutes 55 Visit Number 20 PT-OP-B Current Condition Start: 07/27/18 08:34 Freq: Status: Active Protocol: Document 07/26/18 17:30 EA (Rec: 07/27/18 09:34 EA [id number]) Current Condition History of Current Condition Onset Date June/2018 Current Complaints Localized low back rated 12/13 History of Current Condition Present condition started just before the end of May 2018 with no known reasons. Patient reports she does regular sitted cardio machines exercises and follow videos yoga exercises that includes supine leg ups and other core exerises. Pt reports she does looks after two grand kids but aware about body mechanics. Patient denies any loss of function to both LE's; states pain is increased with long duration of standing, brushing teeth and washing dishes. She also reports difficulty of getting up in the bed due to aches and back sore that mostly in the morning; states pain decreased with help of heating pads. Patient denies any X-ray or any low back diagnostic imaging performed in the past. Prior Treatments and Tests Oral steroids for back pain: Had negative reactions Future Testing and Treatments Planned None identified. Treatment Goals Patient/Caregiver Goals Patient would like to eliminate low back pain so she could back to her usual daily activities with no limitation . 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 Current Functional Impairments (Reported) Functional Limitations- ADL's Independent with limitation to bending and lifting Functional Limitations- Mobility/Gait Indep with no AD but limited due to to increased in pain Functional Limitations- Work/School Limited teaching ability due to increased in pain PT-OP-C Subjective Start: 07/27/18 08:34 Freq: Status: Active Protocol: Document 11/02/18 12:54 LR (Rec: 11/02/18 13:43 [facility] [id number]) OP-PT Subjective Patient Comments Patient Comments Pt reports she is taking naproxen daily sometimes twice . PT-OP-G Mobility & Gait Start: 07/27/18 08:34 Freq: Status: Active Protocol: Document 07/26/18 17:30 EA (Rec: 07/27/18 09:34 EA [id number]) OP Gait Assessment Comments Gait Comments No gait deviation noted Stair Climbing Evaluation Comments Stair Climbing Comments No stairs difficulty PT-OP-J Posture/Palpation/Skin Start: 07/27/18 08:34 Freq: Status: Active Protocol: Document 07/26/18 17:30 EA (Rec: 07/27/18 09:34 EA [id number]) Posture Evaluation Comments Posture Comments Good general posture with slight increased in lumbar lordosis Palpation Assessment Location One Palpation Location Both paralumbars, QL Palpation Findings Soft Tissue Tightness Muscle Guarding Tenderness Skin Assessment Other Assessments Skin Assessment Comments Palpable electronic device placed to R upper gluteal area PT-OP-K Range of Motion Start: 07/27/18 08:34 Freq: Status: Active Protocol: Document 07/26/18 17:30 EA (Rec: 07/27/18 09:34 EA [id number]) Lumbar Spine Range of Motion Lumbar Spine Active Percentage Testing Position Supine Flexion 70 Extension 40 Rotation Left 80 Rotation Right 80 Lateral Flexion Left 65 Lateral Flexion Right 60 ROM Limitations Soft Tissue Tightness Pain Comments localized Pain increased with Extension> flexion> side flexion Hip Goniometric Range of Motion Hip Measured in Degrees Left Active Hip ROM WFL Yes Right Hip ROM WFL Yes PT-OP-L Special Tests Start: 07/27/18 08:34 Freq: Status: Active Protocol: Document 07/26/18 17:30 EA (Rec: 07/27/18 09:34 EA [id number]) Special Tests Lumbar Spine Special Tests Other- 1 Test Results Neg Gaenlen's Slump Test Results negative Straight Leg Raise Test Results negative Compression Test Results negative PT-OP-M Strength Start: 07/27/18 08:34 Freq: Status: Active Protocol: Document 07/26/18 17:30 EA (Rec: 07/27/18 09:34 EA [id number]) Hip Strength Hip Manual Muscle Testing Right Reason Not Measured WFL Left Reason Not Measured WFL PT-OP-Q Treatments Start: 07/27/18 08:34 Freq: Status: Active Protocol: Document 11/02/18 12:54 [facility] (Rec: 11/02/18 13:43 [facility] [id number]) Cardio Equipment Recumbent Elliptical (Biodex) Duration (Minutes) 5 Resistance level 2 Seat Position 8 Therapeutic Exercises Supine Exercises 7 Supine Exercise Name SKTC & DKTC Side bilateral Reps/Minutes 30 sec 4 Supine Exercise Name marching Side bilateral Reps/Minutes 10x2 Comments focus on core 2 Supine Exercise Name Lower trunk rotation Reps/Minutes x15 each way 1 Supine Exercise Name bridges w/core Reps/Minutes 10 Sitting Exercises 1 Sitting Exercise Name fwd bend stretch Reps/Minutes 10 sec then 30 sec Standing Exercises 7 Standing Exercise Name squat Reps/Minutes 15 Manual Therapy Treatment Soft Tissue Mobilization 3 Body Location Bilateral Lumbar Paraspinals Mobilization Type Myofascial Release Sustained Pressure Intensity/Depth Moderate Body Position Sidelying Neuro Re-Education Treatment Other Activities PNF Details ant elevation/post depression Comments rhythmic initiation L & L alt concentrics & combo of isotonics PT-OP-R Modalities Start: 07/27/18 08:34 Freq: Status: Active Protocol: Document 11/02/18 12:54 [facility] (Rec: 11/02/18 13:43 [facility] [id number]) Electric Stimulation Electric Stimulation Interferential Current (IFC) Body Location Paralumbars Duration (Minutes) 15 Intensity 30 Patient Position Sidelying Combined With Heat/Cold Hot Pack Comments Pre-cautions: Electrodes not directly place to right upper gluteal electronic devices. PT-OP-T Assessment and Plan Start: 07/27/18 08:34 Freq: Status: Active Protocol: Document 11/02/18 12:54 [facility] (Rec: 11/02/18 13:43 [facility] [id number]) Physical Therapy Assessment Goals Four Impairment No HEP in place [employer] Goal (LTG) Patient will exhibit independent safe home exercise program LTG Duration achieved progressing as tolerated Three Impairment Impaired sitting tolerance with less than 10 mins Jail Goal (LTG) Patient will sit more than 1 hour with no increase in symptoms LTG Duration 4 wks Two Impairment Impaired Lumbosacral ROM [employer] Goal (LTG) Patient will exhibits near functional range lumbosacral ROM to enhance functional mobility without limitation LTG Duration 4 wks One Impairment Oswetry low back impairement scale of 34/50 Jail Goal (LTG) Patient will have Oswetry low back impairment scale of < 15/ 50 LTG Duration 4 wks Assessment Summary Assessment Pt improving with core exercise performance and was encouraged to stay in comfortable ranges for her knee and her LB. Pt required faciliation and cueing for stable pelvis with marching exercise. Physical Therapy Plan Frequency and Duration Frequency of Treatment 2x/Week Duration of Treatment 2 months Plan of Care Start Date 09/21/18 Plan of Care End Date 11/21/18 Next Visit Focus/Plan Next Note Type Treatment Note Next Visit Plan Cont to advance core
--- NOTE | 2018-11-05 15:47 | PT.OTN ---
Current Diagnoses Low back pain (11/05/18) Physical Therapy Treatment Note PT-OP-A Visit Information Start: 07/27/18 08:34 Freq: Status: Active Protocol: Document 11/05/18 12:05 BS (Rec: 11/05/18 12:16 BS [id number]) Out-Patient Physical Therapy Visit Information Visit Information Visit Type Treatment Note Visit Note 810 Visit Start Time 11:20 Visit Stop Time 12:10 Total Visit Minutes 50 Visit Number 21 PT-OP-B Current Condition Start: 07/27/18 08:34 Freq: Status: Active Protocol: Document 07/26/18 17:30 EA (Rec: 07/27/18 09:34 EA [id number]) Current Condition History of Current Condition Onset Date June/2018 Current Complaints Localized low back rated 12/13 History of Current Condition Present condition started just before the end of May 2018 with no known reasons. Patient reports she does regular sitted cardio machines exercises and follow videos yoga exercises that includes supine leg ups and other core exerises. Pt reports she does looks after two grand kids but aware about body mechanics. Patient denies any loss of function to both LE's; states pain is increased with long duration of standing, brushing teeth and washing dishes. She also reports difficulty of getting up in the bed due to aches and back sore that mostly in the morning; states pain decreased with help of heating pads. Patient denies any X-ray or any low back diagnostic imaging performed in the past. Prior Treatments and Tests Oral steroids for back pain: Had negative reactions Future Testing and Treatments Planned None identified. Treatment Goals Patient/Caregiver Goals Patient would like to eliminate low back pain so she could back to her usual daily activities with no limitation . 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 Current Functional Impairments (Reported) Functional Limitations- ADL's Independent with limitation to bending and lifting Functional Limitations- Mobility/Gait Indep with no AD but limited due to to increased in pain Functional Limitations- Work/School Limited teaching ability due to increased in pain PT-OP-C Subjective Start: 07/27/18 08:34 Freq: Status: Active Protocol: Document 11/05/18 12:05 BS (Rec: 11/05/18 12:16 BS [id number]) OP-PT Subjective Patient Comments Patient Comments Pt states she she has been sore in upper abdominals and feels like she is not doing HEP correctly. Naproxen has made her stomach upset so she has not been taking it as much . PT-OP-G Mobility & Gait Start: 07/27/18 08:34 Freq: Status: Active Protocol: Document 07/26/18 17:30 EA (Rec: 07/27/18 09:34 EA [id number]) OP Gait Assessment Comments Gait Comments No gait deviation noted Stair Climbing Evaluation Comments Stair Climbing Comments No stairs difficulty PT-OP-J Posture/Palpation/Skin Start: 07/27/18 08:34 Freq: Status: Active Protocol: Document 07/26/18 17:30 EA (Rec: 07/27/18 09:34 EA [id number]) Posture Evaluation Comments Posture Comments Good general posture with slight increased in lumbar lordosis Palpation Assessment Location One Palpation Location Both paralumbars, QL Palpation Findings Soft Tissue Tightness Muscle Guarding Tenderness Skin Assessment Other Assessments Skin Assessment Comments Palpable electronic device placed to R upper gluteal area PT-OP-K Range of Motion Start: 07/27/18 08:34 Freq: Status: Active Protocol: Document 07/26/18 17:30 EA (Rec: 07/27/18 09:34 EA [id number]) Lumbar Spine Range of Motion Lumbar Spine Active Percentage Testing Position Supine Flexion 70 Extension 40 Rotation Left 80 Rotation Right 80 Lateral Flexion Left 65 Lateral Flexion Right 60 ROM Limitations Soft Tissue Tightness Pain Comments localized Pain increased with Extension> flexion> side flexion Hip Goniometric Range of Motion Hip Measured in Degrees Left Active Hip ROM WFL Yes Right Hip ROM WFL Yes PT-OP-L Special Tests Start: 07/27/18 08:34 Freq: Status: Active Protocol: Document 07/26/18 17:30 EA (Rec: 07/27/18 09:34 EA [id number]) Special Tests Lumbar Spine Special Tests Other- 1 Test Results Neg Gaenlen's Slump Test Results negative Straight Leg Raise Test Results negative Compression Test Results negative PT-OP-M Strength Start: 07/27/18 08:34 Freq: Status: Active Protocol: Document 07/26/18 17:30 EA (Rec: 07/27/18 09:34 EA [id number]) Hip Strength Hip Manual Muscle Testing Right Reason Not Measured WFL Left Reason Not Measured WFL PT-OP-Q Treatments Start: 07/27/18 08:34 Freq: Status: Active Protocol: Document 11/05/18 12:05 BS (Rec: 11/05/18 12:16 BS [id number]) Cardio Equipment Recumbent Elliptical (Biodex) Duration (Minutes) 7 Resistance level 2 Seat Position 8 Therapeutic Exercises Supine Exercises 11 Supine Exercise Name Hamstring Stretch Side bilateral Reps/Minutes 3x30 each Comments with gait belt 10 Supine Exercise Name Roll In Equipment Used small ball between knees Reps/Minutes 2x10 Comments with post pelvic tilt 9 Supine Exercise Name Posterior pelvic tilts Reps/Minutes 2x10 Comments VCs TA contraction 7 Supine Exercise Name SKTC & DKTC Side bilateral Reps/Minutes 3x30 sec Comments with sheet 2 Supine Exercise Name Lower trunk rotation Reps/Minutes x15 each way 1 Supine Exercise Name bridges w/core Reps/Minutes x12 Comments VCs for TA contraction Sitting Exercises 1 Sitting Exercise Name Fwd bend with [place] ball Equipment Used 65 cm therapy ball Reps/Minutes 2x30 Self-Care/Home Management Treatment Education Patient Education Home Exercise Program Posture Other Education diaphragmatic breathing for pain reduction and body relaxation. PT-OP-R Modalities Start: 07/27/18 08:34 Freq: Status: Active Protocol: Document 11/05/18 12:05 BS (Rec: 11/05/18 12:16 BS [id number]) Electric Stimulation Electric Stimulation Interferential Current (IFC) Body Location Paralumbars Duration (Minutes) 10 Intensity 30 Patient Position Prone Combined With Heat/Cold Hot Pack Comments with prone pillow. Pre-cautions: Electrodes not directly place to right upper gluteal electronic devices. PT-OP-T Assessment and Plan Start: 07/27/18 08:34 Freq: Status: Active Protocol: Document 11/05/18 12:05 BS (Rec: 11/05/18 12:16 BS [id number]) Physical Therapy Assessment Assessment Summary Assessment Pt had concerns that she was not doing core exercises properly and over-engaging her upper abdominals which led to some increased back pain. Pt was educated in diaphragmatic breathing for pain reduction and body relaxation. Examined pt's technique with core stabilization exercises. Pt left session feeling like she will be able to do them correctly on her own at home. Physical Therapy Plan Next Visit Focus/Plan Next Note Type Treatment Note Next Visit Plan Progress core stabilization as pt tolerates.
--- NOTE | 2018-11-08 12:59 | PT.OTN ---
Current Diagnoses Low back pain (11/08/18) Physical Therapy Treatment Note PT-OP-A Visit Information Start: 07/27/18 08:34 Freq: Status: Active Protocol: Document 11/08/18 11:23 [facility] (Rec: 11/08/18 12:03 [facility] [id number]) Out-Patient Physical Therapy Visit Information Visit Information Visit Type Treatment Note Visit Note 03/15 Visit Start Time 11:15 Visit Stop Time 12:00 Total Visit Minutes 45 Visit Number 22 PT-OP-B Current Condition Start: 07/27/18 08:34 Freq: Status: Active Protocol: Document 07/26/18 17:30 EA (Rec: 07/27/18 09:34 EA [id number]) Current Condition History of Current Condition Onset Date June/2018 Current Complaints Localized low back rated 12/13 History of Current Condition Present condition started just before the end of May 2018 with no known reasons. Patient reports she does regular sitted cardio machines exercises and follow videos yoga exercises that includes supine leg ups and other core exerises. Pt reports she does looks after two grand kids but aware about body mechanics. Patient denies any loss of function to both LE's; states pain is increased with long duration of standing, brushing teeth and washing dishes. She also reports difficulty of getting up in the bed due to aches and back sore that mostly in the morning; states pain decreased with help of heating pads. Patient denies any X-ray or any low back diagnostic imaging performed in the past. Prior Treatments and Tests Oral steroids for back pain: Had negative reactions Future Testing and Treatments Planned None identified. Treatment Goals Patient/Caregiver Goals Patient would like to eliminate low back pain so she could back to her usual daily activities with no limitation . 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 Current Functional Impairments (Reported) Functional Limitations- ADL's Independent with limitation to bending and lifting Functional Limitations- Mobility/Gait Indep with no AD but limited due to to increased in pain Functional Limitations- Work/School Limited teaching ability due to increased in pain PT-OP-C Subjective Start: 07/27/18 08:34 Freq: Status: Active Protocol: Document 11/08/18 11:23 [facility] (Rec: 11/08/18 12:03 [facility] [id number]) OP-PT Subjective Patient Comments Patient Comments Pt reports she feels better about her exercises. Reports PT-OP-G Mobility & Gait Start: 07/27/18 08:34 Freq: Status: Active Protocol: Document 07/26/18 17:30 EA (Rec: 07/27/18 09:34 EA [id number]) OP Gait Assessment Comments Gait Comments No gait deviation noted Stair Climbing Evaluation Comments Stair Climbing Comments No stairs difficulty PT-OP-J Posture/Palpation/Skin Start: 07/27/18 08:34 Freq: Status: Active Protocol: Document 07/26/18 17:30 EA (Rec: 07/27/18 09:34 EA [id number]) Posture Evaluation Comments Posture Comments Good general posture with slight increased in lumbar lordosis Palpation Assessment Location One Palpation Location Both paralumbars, QL Palpation Findings Soft Tissue Tightness Muscle Guarding Tenderness Skin Assessment Other Assessments Skin Assessment Comments Palpable electronic device placed to R upper gluteal area PT-OP-K Range of Motion Start: 07/27/18 08:34 Freq: Status: Active Protocol: Document 07/26/18 17:30 EA (Rec: 07/27/18 09:34 EA [id number]) Lumbar Spine Range of Motion Lumbar Spine Active Percentage Testing Position Supine Flexion 70 Extension 40 Rotation Left 80 Rotation Right 80 Lateral Flexion Left 65 Lateral Flexion Right 60 ROM Limitations Soft Tissue Tightness Pain Comments localized Pain increased with Extension> flexion> side flexion Hip Goniometric Range of Motion Hip Measured in Degrees Left Active Hip ROM WFL Yes Right Hip ROM WFL Yes PT-OP-L Special Tests Start: 07/27/18 08:34 Freq: Status: Active Protocol: Document 07/26/18 17:30 EA (Rec: 07/27/18 09:34 EA [id number]) Special Tests Lumbar Spine Special Tests Other- 1 Test Results Neg Gaenlen's Slump Test Results negative Straight Leg Raise Test Results negative Compression Test Results negative PT-OP-M Strength Start: 07/27/18 08:34 Freq: Status: Active Protocol: Document 07/26/18 17:30 EA (Rec: 07/27/18 09:34 EA [id number]) Hip Strength Hip Manual Muscle Testing Right Reason Not Measured WFL Left Reason Not Measured WFL PT-OP-Q Treatments Start: 07/27/18 08:34 Freq: Status: Active Protocol: Document 11/08/18 11:23 [facility] (Rec: 11/08/18 12:03 [facility] [id number]) Cardio Equipment Recumbent Stepper (Sci-Fit) Duration (Minutes) 6 Resistance 2 Therapeutic Exercises Standing Exercises 5 Standing Exercise Name pelvic circles Therapeutic Activity Therapeutic Activity 3 Name seated support Comments sacral & pelvic & lumbar support options in peds chair Manual Therapy Treatment Soft Tissue Mobilization 3 Body Location Bilateral Lumbar Paraspinals Mobilization Type Myofascial Release Sustained Pressure Intensity/Depth Moderate Body Position Prone Comments seated roll down lumbar PT-OP-R Modalities Start: 07/27/18 08:34 Freq: Status: Active Protocol: Document 11/05/18 12:05 BS (Rec: 11/05/18 12:16 BS [id number]) Electric Stimulation Electric Stimulation Interferential Current (IFC) Body Location Paralumbars Duration (Minutes) 10 Intensity 30 Patient Position Prone Combined With Heat/Cold Hot Pack Comments with prone pillow. Pre-cautions: Electrodes not directly place to right upper gluteal electronic devices. PT-OP-T Assessment and Plan Start: 07/27/18 08:34 Freq: Status: Active Protocol: Document 11/08/18 11:23 [facility] (Rec: 11/08/18 12:03 [facility] [id number]) Physical Therapy Assessment Goals Four Impairment No HEP in place Snf Goal (LTG) Patient will exhibit independent safe home exercise program LTG Duration achieved progressing as tolerated Three Impairment Impaired sitting tolerance with less than 10 mins Snf Goal (LTG) Patient will sit more than 1 hour with no increase in symptoms LTG Duration 4 wks Two Impairment Impaired Lumbosacral ROM Snf Goal (LTG) Patient will exhibits near functional range lumbosacral ROM to enhance functional mobility without limitation LTG Duration 4 wks One Impairment Oswetry low back impairement scale of 34/50 Snf Goal (LTG) Patient will have Oswetry low back impairment scale of < 15/ 50 LTG Duration 4 wks Assessment Summary Assessment Pt had improved LPM in R AP quadrant from 1/5 to 3/5 after STM. She was able to get more comfortable in peds chair with stability of pelvis, sacrum and lumbar spine regions Physical Therapy Plan Frequency and Duration Frequency of Treatment 2x/Week Duration of Treatment 2 months Plan of Care Start Date 09/21/18 Plan of Care End Date 11/21/18 Next Visit Focus/Plan Next Note Type Treatment Note Next Visit Plan Progress core stabilization as pt tolerates.
--- NOTE | 2018-11-11 10:30 | PT.OTN ---
Current Diagnoses Low back pain (11/11/18) Physical Therapy Treatment Note PT-OP-A Visit Information Start: 07/27/18 08:34 Freq: Status: Active Protocol: Document 11/11/18 10:30 RCC (Rec: 11/12/18 09:08 RCC [email or web address]) Out-Patient Physical Therapy Visit Information Visit Information Visit Type Treatment Note Visit Note 04/14 Visit Start Time 10:30 Visit Stop Time 11:50 Total Visit Minutes 50 Visit Number 23 PT-OP-B Current Condition Start: 07/27/18 08:34 Freq: Status: Active Protocol: Document 07/26/18 17:30 EA (Rec: 07/27/18 09:34 EA [id number]) Current Condition History of Current Condition Onset Date June/2018 Current Complaints Localized low back rated 12/13 History of Current Condition Present condition started just before the end of May 2018 with no known reasons. Patient reports she does regular sitted cardio machines exercises and follow videos yoga exercises that includes supine leg ups and other core exerises. Pt reports she does looks after two grand kids but aware about body mechanics. Patient denies any loss of function to both LE's; states pain is increased with long duration of standing, brushing teeth and washing dishes. She also reports difficulty of getting up in the bed due to aches and back sore that mostly in the morning; states pain decreased with help of heating pads. Patient denies any X-ray or any low back diagnostic imaging performed in the past. Prior Treatments and Tests Oral steroids for back pain: Had negative reactions Future Testing and Treatments Planned None identified. Treatment Goals Patient/Caregiver Goals Patient would like to eliminate low back pain so she could back to her usual daily activities with no limitation . 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 Current Functional Impairments (Reported) Functional Limitations- ADL's Independent with limitation to bending and lifting Functional Limitations- Mobility/Gait Indep with no AD but limited due to to increased in pain Functional Limitations- Work/School Limited teaching ability due to increased in pain PT-OP-C Subjective Start: 07/27/18 08:34 Freq: Status: Active Protocol: Document 11/11/18 10:30 RCC (Rec: 11/12/18 09:08 RCC [email or web address]) OP-PT Subjective Patient Comments Patient Comments Pt feels she is about 50% better, but still has to always be aware of her low back position, cannot sit for a prolonged amount of time and difficulty with doing the dishes. PT-OP-G Mobility & Gait Start: 07/27/18 08:34 Freq: Status: Active Protocol: Document 07/26/18 17:30 EA (Rec: 07/27/18 09:34 EA [id number]) OP Gait Assessment Comments Gait Comments No gait deviation noted Stair Climbing Evaluation Comments Stair Climbing Comments No stairs difficulty PT-OP-J Posture/Palpation/Skin Start: 07/27/18 08:34 Freq: Status: Active Protocol: Document 07/26/18 17:30 EA (Rec: 07/27/18 09:34 EA [id number]) Posture Evaluation Comments Posture Comments Good general posture with slight increased in lumbar lordosis Palpation Assessment Location One Palpation Location Both paralumbars, QL Palpation Findings Soft Tissue Tightness Muscle Guarding Tenderness Skin Assessment Other Assessments Skin Assessment Comments Palpable electronic device placed to R upper gluteal area PT-OP-K Range of Motion Start: 07/27/18 08:34 Freq: Status: Active Protocol: Document 07/26/18 17:30 EA (Rec: 07/27/18 09:34 EA [id number]) Lumbar Spine Range of Motion Lumbar Spine Active Percentage Testing Position Supine Flexion 70 Extension 40 Rotation Left 80 Rotation Right 80 Lateral Flexion Left 65 Lateral Flexion Right 60 ROM Limitations Soft Tissue Tightness Pain Comments localized Pain increased with Extension> flexion> side flexion Hip Goniometric Range of Motion Hip Measured in Degrees Left Active Hip ROM WFL Yes Right Hip ROM WFL Yes PT-OP-L Special Tests Start: 07/27/18 08:34 Freq: Status: Active Protocol: Document 07/26/18 17:30 EA (Rec: 07/27/18 09:34 EA [id number]) Special Tests Lumbar Spine Special Tests Other- 1 Test Results Neg Gaenlen's Slump Test Results negative Straight Leg Raise Test Results negative Compression Test Results negative PT-OP-M Strength Start: 07/27/18 08:34 Freq: Status: Active Protocol: Document 07/26/18 17:30 EA (Rec: 07/27/18 09:34 EA [id number]) Hip Strength Hip Manual Muscle Testing Right Reason Not Measured WFL Left Reason Not Measured WFL PT-OP-Q Treatments Start: 07/27/18 08:34 Freq: Status: Active Protocol: Document 11/11/18 10:30 RCC (Rec: 11/12/18 09:08 RCC [email or web address]) Cardio Equipment Recumbent Stepper (Sci-Fit) Duration (Minutes) 6 Resistance 2 Therapeutic Exercises Supine Exercises 9 Supine Exercise Name Posterior pelvic tilts Reps/Minutes 2x10 2 Supine Exercise Name Lower trunk rotation Reps/Minutes x15 each way 1 Supine Exercise Name bridges w/core Reps/Minutes x12 Comments VCs for TA contraction Manual Therapy Treatment Soft Tissue Mobilization 3 Body Location Bilateral Lumbar Paraspinals Mobilization Type Myofascial Release Sustained Pressure Intensity/Depth Moderate Body Position Prone PT-OP-R Modalities Start: 07/27/18 08:34 Freq: Status: Active Protocol: Document 11/11/18 10:30 RCC (Rec: 11/12/18 09:08 RCC [email or web address]) Electric Stimulation Electric Stimulation Interferential Current (IFC) Body Location Paralumbars Duration (Minutes) 16 Intensity 30 Patient Position Prone Combined With Heat/Cold Hot Pack Comments with prone pillow. Pre-cautions: Electrodes not directly place to right upper gluteal electronic devices. PT-OP-T Assessment and Plan Start: 07/27/18 08:34 Freq: Status: Active Protocol: Document 11/11/18 10:30 RCC (Rec: 11/12/18 09:08 RCC [email or web address]) Physical Therapy Assessment Goals Four Impairment No HEP in place Electric Drill Operator Goal (LTG) Patient will exhibit independent safe home exercise program LTG Duration achieved progressing as tolerated Three Impairment Impaired sitting tolerance with less than 10 mins Electric Drill Operator Goal (LTG) Patient will sit more than 1 hour with no increase in symptoms LTG Duration 4 wks Two Impairment Impaired Lumbosacral ROM Alf Goal (LTG) Patient will exhibits near functional range lumbosacral ROM to enhance functional mobility without limitation LTG Duration 4 wks One Impairment Oswetry low back impairement scale of 34/50 Alf Goal (LTG) Patient will have Oswetry low back impairment scale of < 15/ 50 LTG Duration 4 wks Progress Towards Goals Progress Comments Pt is improving with her HEP, requiring cuing with only bridging for TA activation. No Oswestry given today; pt reports able to sit for 15-30 min depending if she can find a good chair. Assessment Summary Assessment Pt improved with HEP, less cuing required. Her sitting tolerance is not at established goal of 1 hr yet, she self-reports she is 50% better. Pt able to achieve PPT without c/o pain. Physical Therapy Plan Frequency and Duration Frequency of Treatment 2x/Week Duration of Treatment 2 months Plan of Care Start Date 09/21/18 Plan of Care End Date 11/21/18 Next Visit Focus/Plan Next Note Type Treatment Note Next Visit Plan gentle core stabilitization, cont to progress TA with functional activities and into standing (ie @ sink).
--- NOTE | 2018-11-16 16:57 | PT.OTN ---
Current Diagnoses Low back pain (11/16/18) Physical Therapy Treatment Note PT-OP-A Visit Information Start: 07/27/18 08:34 Freq: Status: Active Protocol: Document 11/16/18 16:00 GGD (Rec: 11/16/18 16:56 GGD [email or web address]) Out-Patient Physical Therapy Visit Information Visit Information Visit Type Treatment Note Visit Note 07/15 Visit Start Time 16:00 Visit Stop Time 16:55 Total Visit Minutes 55 Visit Number 24 Number of LONG WALL MINING MACHINE HELPER Visits 1 PT-OP-B Current Condition Start: 07/27/18 08:34 Freq: Status: Active Protocol: Document 07/26/18 17:30 EA (Rec: 07/27/18 09:34 EA [id number]) Current Condition History of Current Condition Onset Date June/2018 Current Complaints Localized low back rated 12/13 History of Current Condition Present condition started just before the end of May 2018 with no known reasons. Patient reports she does regular sitted cardio machines exercises and follow videos yoga exercises that includes supine leg ups and other core exerises. Pt reports she does looks after two grand kids but aware about body mechanics. Patient denies any loss of function to both LE's; states pain is increased with long duration of standing, brushing teeth and washing dishes. She also reports difficulty of getting up in the bed due to aches and back sore that mostly in the morning; states pain decreased with help of heating pads. Patient denies any X-ray or any low back diagnostic imaging performed in the past. Prior Treatments and Tests Oral steroids for back pain: Had negative reactions Future Testing and Treatments Planned None identified. Treatment Goals Patient/Caregiver Goals Patient would like to eliminate low back pain so she could back to her usual daily activities with no limitation . 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 Current Functional Impairments (Reported) Functional Limitations- ADL's Independent with limitation to bending and lifting Functional Limitations- Mobility/Gait Indep with no AD but limited due to to increased in pain Functional Limitations- Work/School Limited teaching ability due to increased in pain PT-OP-C Subjective Start: 07/27/18 08:34 Freq: Status: Active Protocol: Document 11/16/18 16:00 GGD (Rec: 11/16/18 16:56 GGD [email or web address]) OP-PT Subjective Patient Comments Patient Comments Pt states she having pain with standing up right. PT-OP-G Mobility & Gait Start: 07/27/18 08:34 Freq: Status: Active Protocol: Document 07/26/18 17:30 EA (Rec: 07/27/18 09:34 EA [id number]) OP Gait Assessment Comments Gait Comments No gait deviation noted Stair Climbing Evaluation Comments Stair Climbing Comments No stairs difficulty PT-OP-J Posture/Palpation/Skin Start: 07/27/18 08:34 Freq: Status: Active Protocol: Document 07/26/18 17:30 EA (Rec: 07/27/18 09:34 EA [id number]) Posture Evaluation Comments Posture Comments Good general posture with slight increased in lumbar lordosis Palpation Assessment Location One Palpation Location Both paralumbars, QL Palpation Findings Soft Tissue Tightness Muscle Guarding Tenderness Skin Assessment Other Assessments Skin Assessment Comments Palpable electronic device placed to R upper gluteal area PT-OP-K Range of Motion Start: 07/27/18 08:34 Freq: Status: Active Protocol: Document 07/26/18 17:30 EA (Rec: 07/27/18 09:34 EA [id number]) Lumbar Spine Range of Motion Lumbar Spine Active Percentage Testing Position Supine Flexion 70 Extension 40 Rotation Left 80 Rotation Right 80 Lateral Flexion Left 65 Lateral Flexion Right 60 ROM Limitations Soft Tissue Tightness Pain Comments localized Pain increased with Extension> flexion> side flexion Hip Goniometric Range of Motion Hip Measured in Degrees Left Active Hip ROM WFL Yes Right Hip ROM WFL Yes PT-OP-L Special Tests Start: 07/27/18 08:34 Freq: Status: Active Protocol: Document 07/26/18 17:30 EA (Rec: 07/27/18 09:34 EA [id number]) Special Tests Lumbar Spine Special Tests Other- 1 Test Results Neg Gaenlen's Slump Test Results negative Straight Leg Raise Test Results negative Compression Test Results negative PT-OP-M Strength Start: 07/27/18 08:34 Freq: Status: Active Protocol: Document 07/26/18 17:30 EA (Rec: 07/27/18 09:34 EA [id number]) Hip Strength Hip Manual Muscle Testing Right Reason Not Measured WFL Left Reason Not Measured WFL PT-OP-Q Treatments Start: 07/27/18 08:34 Freq: Status: Active Protocol: Document 11/16/18 16:00 GGD (Rec: 11/16/18 16:56 GGD [email or web address]) Cardio Equipment Recumbent Stepper (Sci-Fit) Duration (Minutes) 6 Resistance 2 Therapeutic Exercises Supine Exercises psoas str Supine Exercise Name psoas str Side bilateral Comments off edge table 9 Supine Exercise Name Posterior pelvic tilts Reps/Minutes 2x10 2 Supine Exercise Name Lower trunk rotation Reps/Minutes x15 each way Standing Exercises psoas str. Standing Exercise Name psoas str. Side bilateral Reps/Minutes 30 Comments stairs Manual Therapy Treatment Soft Tissue Mobilization 3 Body Location Bilateral Lumbar Paraspinals Mobilization Type Myofascial Release Sustained Pressure Intensity/Depth Moderate Body Position Prone 2 Body Location psoas/iliacus Mobilization Type Rolling Sustained Pressure Intensity/Depth Moderate Body Position Supine PT-OP-R Modalities Start: 07/27/18 08:34 Freq: Status: Active Protocol: Document 11/16/18 16:00 GGD (Rec: 11/16/18 16:56 GGD [email or web address]) Electric Stimulation Electric Stimulation Interferential Current (IFC) Body Location Paralumbars Duration (Minutes) 16 Intensity 30 Patient Position Prone Combined With Heat/Cold Hot Pack Comments with prone pillow. Pre-cautions: Electrodes not directly place to right upper gluteal electronic devices. PT-OP-T Assessment and Plan Start: 07/27/18 08:34 Freq: Status: Active Protocol: Document 11/16/18 16:00 GGD (Rec: 11/16/18 16:56 GGD [email or web address]) Physical Therapy Assessment Assessment Summary Assessment Pt had improve tolerance and decrease c/o pain with sit to stand after psoas str. She did fatigue with scifit. Physical Therapy Plan Frequency and Duration Frequency of Treatment 2x/Week Duration of Treatment 2 months Plan of Care Start Date 09/21/18 Plan of Care End Date 11/21/18 Next Visit Focus/Plan Next Note Type Treatment Note Next Visit Plan gentle core stabilitization as tolerates.
--- NOTE | 2018-11-23 12:36 | PT.OTN ---
Current Diagnoses Low back pain (11/23/18) Physical Therapy Treatment Note PT-OP-A Visit Information Start: 07/27/18 08:34 Freq: Status: Active Protocol: Document 11/23/18 12:23 [facility] (Rec: 11/23/18 12:36 [facility] [email or web address]) Out-Patient Physical Therapy Visit Information Visit Information Visit Type Treatment Note Visit Start Time 10:30 Visit Stop Time 11:15 Total Visit Minutes 45 Visit Number 25 Number of WASH RACK OPERATOR Visits 0 PT-OP-B Current Condition Start: 07/27/18 08:34 Freq: Status: Active Protocol: Document 07/26/18 17:30 EA (Rec: 07/27/18 09:34 EA [id number]) Current Condition History of Current Condition Onset Date June/2018 Current Complaints Localized low back rated 610 History of Current Condition Present condition started just before the end of May 2018 with no known reasons. Patient reports she does regular sitted cardio machines exercises and follow videos yoga exercises that includes supine leg ups and other core exerises. Pt reports she does looks after two grand kids but aware about body mechanics. Patient denies any loss of function to both LE's; states pain is increased with long duration of standing, brushing teeth and washing dishes. She also reports difficulty of getting up in the bed due to aches and back sore that mostly in the morning; states pain decreased with help of heating pads. Patient denies any X-ray or any low back diagnostic imaging performed in the past. Prior Treatments and Tests Oral steroids for back pain: Had negative reactions Future Testing and Treatments Planned None identified. Treatment Goals Patient/Caregiver Goals Patient would like to eliminate low back pain so she could back to her usual daily activities with no limitation . 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 Current Functional Impairments (Reported) Functional Limitations- ADL's Independent with limitation to bending and lifting Functional Limitations- Mobility/Gait Indep with no AD but limited due to to increased in pain Functional Limitations- Work/School Limited teaching ability due to increased in pain PT-OP-C Subjective Start: 07/27/18 08:34 Freq: Status: Active Protocol: Document 11/23/18 12:23 [facility] (Rec: 11/23/18 12:36 [facility] [email or web address]) OP-PT Subjective Patient Comments Patient Comments Subha reports that she is finally getting relief with her exercises and that she will have up to 2 days a weeks with pain but the other 5 she is doing better PT-OP-G Mobility & Gait Start: 07/27/18 08:34 Freq: Status: Active Protocol: Document 07/26/18 17:30 EA (Rec: 07/27/18 09:34 EA [id number]) OP Gait Assessment Comments Gait Comments No gait deviation noted Stair Climbing Evaluation Comments Stair Climbing Comments No stairs difficulty PT-OP-J Posture/Palpation/Skin Start: 07/27/18 08:34 Freq: Status: Active Protocol: Document 07/26/18 17:30 EA (Rec: 07/27/18 09:34 EA [id number]) Posture Evaluation Comments Posture Comments Good general posture with slight increased in lumbar lordosis Palpation Assessment Location One Palpation Location Both paralumbars, QL Palpation Findings Soft Tissue Tightness Muscle Guarding Tenderness Skin Assessment Other Assessments Skin Assessment Comments Palpable electronic device placed to R upper gluteal area PT-OP-K Range of Motion Start: 07/27/18 08:34 Freq: Status: Active Protocol: Document 07/26/18 17:30 EA (Rec: 07/27/18 09:34 EA [id number]) Lumbar Spine Range of Motion Lumbar Spine Active Percentage Testing Position Supine Flexion 70 Extension 40 Rotation Left 80 Rotation Right 80 Lateral Flexion Left 65 Lateral Flexion Right 60 ROM Limitations Soft Tissue Tightness Pain Comments localized Pain increased with Extension> flexion> side flexion Hip Goniometric Range of Motion Hip Measured in Degrees Left Active Hip ROM WFL Yes Right Hip ROM WFL Yes PT-OP-L Special Tests Start: 07/27/18 08:34 Freq: Status: Active Protocol: Document 07/26/18 17:30 EA (Rec: 07/27/18 09:34 EA [id number]) Special Tests Lumbar Spine Special Tests Other- 1 Test Results Neg Gaenlen's Slump Test Results negative Straight Leg Raise Test Results negative Compression Test Results negative PT-OP-M Strength Start: 07/27/18 08:34 Freq: Status: Active Protocol: Document 07/26/18 17:30 EA (Rec: 07/27/18 09:34 EA [id number]) Hip Strength Hip Manual Muscle Testing Right Reason Not Measured WFL Left Reason Not Measured WFL PT-OP-Q Treatments Start: 07/27/18 08:34 Freq: Status: Active Protocol: Document 11/23/18 12:23 [facility] (Rec: 11/23/18 12:36 [facility] [email or web address]) Cardio Equipment Recumbent Elliptical (Biodex) Duration (Minutes) 7 Resistance level 2 Seat Position 8 Therapeutic Exercises Supine Exercises psoas str Supine Exercise Name psoas str Side bilateral Comments off edge table 11 Supine Exercise Name Hamstring Stretch Side bilateral Reps/Minutes 3x30 each Comments with gait belt 10 Supine Exercise Name Roll In Equipment Used small ball between knees Reps/Minutes 2x10 Comments with post pelvic tilt figure 4 stretch Supine Exercise Name figure 4 stretch pelvic tilt Supine Exercise Name pelvic tilts Reps/Minutes x 10 2 Supine Exercise Name Lower trunk rotation Reps/Minutes x15 each way 1 Supine Exercise Name bridges w/core Reps/Minutes x12 Comments VCs for TA contraction Standing Exercises psoas str. Standing Exercise Name psoas str. Side bilateral Reps/Minutes 30 Comments stairs 7 Standing Exercise Name squat Reps/Minutes 15 5 Standing Exercise Name pelvic circles 6 Standing Exercise Name standing mesfin stretch and claf stretch 1 Standing Exercise Name standing rows and lat pull down Reps/Minutes level 1 theraband Comments 3 x 10 reps, also tried sitting Other Exercises cat/camel Other Exercise Name cat cow Reps/Minutes x 10 reps PT-OP-R Modalities Start: 07/27/18 08:34 Freq: Status: Active Protocol: Document 11/16/18 16:00 GGD (Rec: 11/16/18 16:56 GGD [email or web address]) Electric Stimulation Electric Stimulation Interferential Current (IFC) Body Location Paralumbars Duration (Minutes) 16 Intensity 30 Patient Position Prone Combined With Heat/Cold Hot Pack Comments with prone pillow. Pre-cautions: Electrodes not directly place to right upper gluteal electronic devices. PT-OP-T Assessment and Plan Start: 07/27/18 08:34 Freq: Status: Active Protocol: Document 11/23/18 12:23 [facility] (Rec: 11/23/18 12:36 [facility] [email or web address]) Physical Therapy Assessment Assessment Summary Assessment Subha has made good progress with her exercise program and PT. She is now gettting days without pain and she notes about two days per week the pain is bad but she has 5 good days. Standing and cooking still aggravates her but she is learning stratagies to help minimize symptms. She would benefit from continued PT Physical Therapy Plan Frequency and Duration Frequency of Treatment 2x/Week Duration of Treatment 2 month Plan of Care Start Date 11/21/18 Plan of Care End Date 01/21/19 Therapeutic Interventions Therapeutic Interventions Aquatic Therapy Balance Training Home Exercise Program Joint Mobilizations Manual Therapy Patient/Caregiver Education Self-Care/Home Management Soft Tissue Mobilization Taping Therapeutic Activities Therapeutic Exercises Modalities Cold Pack/Ice Massage Electric Stimulation Hot Packs Traction- Mechanical Ultrasound Next Visit Focus/Plan Next Note Type Treatment Note Next Visit Plan Continue PT focusing on independence with a home exercise program
--- NOTE | 2018-11-23 12:36 | PT.OPPOC ---
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 She is now gettting days without pain and she notes about two days per week the pain is bad but she has 5 good days. Standing and cooking still aggravates her but she is learning stratagies to help minimize symptms. She would benefit from continued PT Physical Therapy Plan Frequency and Duration Frequency of Treatment 2x/Week Duration of Treatment 2 month Plan of Care Start Date 11/21/18 Plan of Care End Date 01/21/19 Therapeutic Interventions Therapeutic Interventions Aquatic Therapy Balance Training Home Exercise Program Joint Mobilizations Manual Therapy Patient/Caregiver Education Self-Care/Home Management Soft Tissue Mobilization Taping Therapeutic Activities Therapeutic Exercises Modalities Cold Pack/Ice Massage Electric Stimulation Hot Packs Traction- Mechanical Ultrasound Next Visit Focus/Plan Next Note Type Treatment Note Next Visit Plan Continue PT focusing on independence with a home exercise program Plan of Care Dates Plan of Care Start Date 11/21/18 Plan of Care End Date 01/21/19 Please Sign and Return: I have reviewed this Plan of Care and certify that the skilled therapy services above are required to meet the patient?s needs. Physician Signature Date Printed Name and Credentials Clinical Instructor Signature Printed Name and Credentials
--- NOTE | 2018-11-25 13:55 | PT.OTN ---
Current Diagnoses Low back pain (11/25/18) Physical Therapy Treatment Note PT-OP-A Visit Information Start: 07/27/18 08:34 Freq: Status: Active Protocol: Document 11/25/18 13:55 DLM (Rec: 11/25/18 15:11 DLM [id number]) Out-Patient Physical Therapy Visit Information Visit Information Visit Type Treatment Note Visit Note 08/15, KX Visit Start Time 13:55 Visit Stop Time 14:45 Total Visit Minutes 50 Visit Number 26 Number of FAMILY SPECIALIST Visits 0 Evaluation Information Evaluation Date 07/26/18 PT-OP-B Current Condition Start: 07/27/18 08:34 Freq: Status: Active Protocol: Document 07/26/18 17:30 EA (Rec: 07/27/18 09:34 EA [id number]) Current Condition History of Current Condition Onset Date June/2018 Current Complaints Localized low back rated 6/10 History of Current Condition Present condition started just before the end of May 2018 with no known reasons. Patient reports she does regular sitted cardio machines exercises and follow videos yoga exercises that includes supine leg ups and other core exerises. Pt reports she does looks after two grand kids but aware about body mechanics. Patient denies any loss of function to both LE's; states pain is increased with long duration of standing, brushing teeth and washing dishes. She also reports difficulty of getting up in the bed due to aches and back sore that mostly in the morning; states pain decreased with help of heating pads. Patient denies any X-ray or any low back diagnostic imaging performed in the past. Prior Treatments and Tests Oral steroids for back pain: Had negative reactions Future Testing and Treatments Planned None identified. Treatment Goals Patient/Caregiver Goals Patient would like to eliminate low back pain so she could back to her usual daily activities with no limitation . 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 Current Functional Impairments (Reported) Functional Limitations- ADL's Independent with limitation to bending and lifting Functional Limitations- Mobility/Gait Indep with no AD but limited due to to increased in pain Functional Limitations- Work/School Limited teaching ability due to increased in pain PT-OP-C Subjective Start: 07/27/18 08:34 Freq: Status: Active Protocol: Document 11/25/18 13:55 DLM (Rec: 11/25/18 15:11 DLM [id number]) OP-PT Subjective Patient Comments Patient Comments She feels she is doing well with her exercises. She went out to lunch today then walk around town but her back started to hurt so she could not finish walking. She thinks her shoes may have contributed to her pain today. Patient Reported Progress Improving PT-OP-G Mobility & Gait Start: 07/27/18 08:34 Freq: Status: Active Protocol: Document 07/26/18 17:30 EA (Rec: 07/27/18 09:34 EA [id number]) OP Gait Assessment Comments Gait Comments No gait deviation noted Stair Climbing Evaluation Comments Stair Climbing Comments No stairs difficulty PT-OP-J Posture/Palpation/Skin Start: 07/27/18 08:34 Freq: Status: Active Protocol: Document 07/26/18 17:30 EA (Rec: 07/27/18 09:34 EA [id number]) Posture Evaluation Comments Posture Comments Good general posture with slight increased in lumbar lordosis Palpation Assessment Location One Palpation Location Both paralumbars, QL Palpation Findings Soft Tissue Tightness Muscle Guarding Tenderness Skin Assessment Other Assessments Skin Assessment Comments Palpable electronic device placed to R upper gluteal area PT-OP-K Range of Motion Start: 07/27/18 08:34 Freq: Status: Active Protocol: Document 07/26/18 17:30 EA (Rec: 07/27/18 09:34 EA [id number]) Lumbar Spine Range of Motion Lumbar Spine Active Percentage Testing Position Supine Flexion 70 Extension 40 Rotation Left 80 Rotation Right 80 Lateral Flexion Left 65 Lateral Flexion Right 60 ROM Limitations Soft Tissue Tightness Pain Comments localized Pain increased with Extension> flexion> side flexion Hip Goniometric Range of Motion Hip Measured in Degrees Left Active Hip ROM WFL Yes Right Hip ROM WFL Yes PT-OP-L Special Tests Start: 07/27/18 08:34 Freq: Status: Active Protocol: Document 07/26/18 17:30 EA (Rec: 07/27/18 09:34 EA [id number]) Special Tests Lumbar Spine Special Tests Other- 1 Test Results Neg Gaenlen's Slump Test Results negative Straight Leg Raise Test Results negative Compression Test Results negative PT-OP-M Strength Start: 01/22/19 08:34 Freq: Status: Active Protocol: Document 07/26/18 17:30 EA (Rec: 07/27/18 09:34 EA [id number]) Hip Strength Hip Manual Muscle Testing Right Reason Not Measured WFL Left Reason Not Measured WFL PT-OP-Q Treatments Start: 07/27/18 08:34 Freq: Status: Active Protocol: Document 11/25/18 13:55 DLM (Rec: 11/25/18 15:11 DLM [id number]) Cardio Equipment Recumbent Stepper (Sci-Fit) Duration (Minutes) 6 Resistance 1.5-2 Seat Position 11 Therapeutic Exercises Supine Exercises psoas str Supine Exercise Name psoas stretch Side bilateral Reps/Minutes 30 sec hold x 2 reps Comments single LE off edge of bed 11 Supine Exercise Name Hamstring Stretch Side bilateral Reps/Minutes 3x30 each Comments with gait belt 9 Supine Exercise Name Posterior pelvic tilts Reps/Minutes 2 x 10 reps figure 4 stretch Supine Exercise Name figure 4 stretch Side bilateral Reps/Minutes x3 reps Comments left tighter than right pelvic tilt Supine Exercise Name pelvic tilts Reps/Minutes x 10 2 Supine Exercise Name Lower trunk rotation Side bilateral Reps/Minutes x15 each way 1 Supine Exercise Name bridges w/core Reps/Minutes x 12 reps Standing Exercises psoas str. Standing Exercise Name psoas stretch Side bilateral Reps/Minutes 30 sec x 3 reps each Comments lunge position 6 Standing Exercise Name standing sandeep calf stretch Side bilateral Equipment Used SANDEEP Reps/Minutes 30 sec hold x 2 reps 4 Standing Exercise Name core isometric with back to wall Reps/Minutes x 5 reps Comments verbal cues Other Exercises cat/camel Other Exercise Name cat/cow Reps/Minutes x 10 reps Comments she reports this is difficult for her Self-Care/Home Management Treatment Education Patient Education Home Exercise Program Pain Management Other Education educated on the difference between stretching and strengthening exercises PT-OP-R Modalities Start: 07/27/18 08:34 Freq: Status: Active Protocol: Document 11/25/18 13:55 DLM (Rec: 11/25/18 15:11 DLM [id number]) Electric Stimulation Electric Stimulation Interferential Current (IFC) Body Location Paralumbars Duration (Minutes) 15 Intensity 21 Patient Position Sidelying Combined With Heat/Cold Hot Pack Comments Pre-cautions: Electrodes not directly place to right upper gluteal electronic devices. PT-OP-T Assessment and Plan Start: 07/27/18 08:34 Freq: Status: Active Protocol: Document 11/25/18 13:55 DLM (Rec: 11/25/18 15:11 DLM [id number]) Physical Therapy Assessment Goals Four Impairment No HEP in place Enrollment Specialist Goal (LTG) Patient will exhibit independent safe home exercise program LTG Duration achieved progressing as tolerated Three Impairment Impaired sitting tolerance with less than 10 mins Longterm Goal (LTG) Patient will sit more than 1 hour with no increase in symptoms LTG Duration 4 wks Two Impairment Impaired Lumbosacral ROM Longterm Goal (LTG) Patient will exhibits near functional range lumbosacral ROM to enhance functional mobility without limitation LTG Duration 4 wks One Impairment Oswetry low back impairement scale of 34/50 Longterm Goal (LTG) Patient will have Oswetry low back impairment scale of < 15/ 50 LTG Duration 4 wks Progress Towards Goals Progress Towards Goals Progressing Toward Goals Assessment Summary Assessment Subha reports she is tolerating her exercisese well at home. She reports she has modified some of her activities at home to manage her back pain. She expresses frustration with her back pain while walking today. She describes the area of her back pain is much smaller over-all then when it started. She feels the Estim still helps her pain. Physical Therapy Plan Frequency and Duration Frequency of Treatment 2x/Week Duration of Treatment 2 month Plan of Care Start Date 11/21/18 Plan of Care End Date 01/21/19 Next Visit Focus/Plan Next Note Type Treatment Note Next Visit Plan Continue PT focusing on independence with a home exercise program
--- NOTE | 2018-12-01 12:58 | PT.OTN ---
Current Diagnoses Low back pain (12/01/18) Physical Therapy Treatment Note PT-OP-A Visit Information Start: 07/27/18 08:34 Freq: Status: Active Protocol: Document 12/01/18 12:46 AMH (Rec: 12/01/18 12:58 AMH [email or web address]) Out-Patient Physical Therapy Visit Information Visit Information Visit Type Treatment Note Visit Start Time 10:45 Visit Stop Time 11:40 Total Visit Minutes 50 Visit Number 27 Number of CONTROL AND RECOVERY COMBAT RESCUE Visits 0 PT-OP-B Current Condition Start: 07/27/18 08:34 Freq: Status: Active Protocol: Document 07/26/18 17:30 EA (Rec: 07/27/18 09:34 EA [id number]) Current Condition History of Current Condition Onset Date June/2018 Current Complaints Localized low back rated 610 History of Current Condition Present condition started just before the end of May 2018 with no known reasons. Patient reports she does regular sitted cardio machines exercises and follow videos yoga exercises that includes supine leg ups and other core exerises. Pt reports she does looks after two grand kids but aware about body mechanics. Patient denies any loss of function to both LE's; states pain is increased with long duration of standing, brushing teeth and washing dishes. She also reports difficulty of getting up in the bed due to aches and back sore that mostly in the morning; states pain decreased with help of heating pads. Patient denies any X-ray or any low back diagnostic imaging performed in the past. Prior Treatments and Tests Oral steroids for back pain: Had negative reactions Future Testing and Treatments Planned None identified. Treatment Goals Patient/Caregiver Goals Patient would like to eliminate low back pain so she could back to her usual daily activities with no limitation . 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 Current Functional Impairments (Reported) Functional Limitations- ADL's Independent with limitation to bending and lifting Functional Limitations- Mobility/Gait Indep with no AD but limited due to to increased in pain Functional Limitations- Work/School Limited teaching ability due to increased in pain PT-OP-C Subjective Start: 07/27/18 08:34 Freq: Status: Active Protocol: Document 12/01/18 12:46 AMH (Rec: 12/01/18 12:58 AMH [email or web address]) OP-PT Subjective Patient Comments Patient Comments Subha reports she thinks she overstretched her hip flexors. She has been sore PT-OP-G Mobility & Gait Start: 07/27/18 08:34 Freq: Status: Active Protocol: Document 07/26/18 17:30 EA (Rec: 07/27/18 09:34 EA [id number]) OP Gait Assessment Comments Gait Comments No gait deviation noted Stair Climbing Evaluation Comments Stair Climbing Comments No stairs difficulty PT-OP-J Posture/Palpation/Skin Start: 07/27/18 08:34 Freq: Status: Active Protocol: Document 07/26/18 17:30 EA (Rec: 07/27/18 09:34 EA [id number]) Posture Evaluation Comments Posture Comments Good general posture with slight increased in lumbar lordosis Palpation Assessment Location One Palpation Location Both paralumbars, QL Palpation Findings Soft Tissue Tightness Muscle Guarding Tenderness Skin Assessment Other Assessments Skin Assessment Comments Palpable electronic device placed to R upper gluteal area PT-OP-K Range of Motion Start: 07/27/18 08:34 Freq: Status: Active Protocol: Document 07/26/18 17:30 EA (Rec: 07/27/18 09:34 EA [id number]) Lumbar Spine Range of Motion Lumbar Spine Active Percentage Testing Position Supine Flexion 70 Extension 40 Rotation Left 80 Rotation Right 80 Lateral Flexion Left 65 Lateral Flexion Right 60 ROM Limitations Soft Tissue Tightness Pain Comments localized Pain increased with Extension> flexion> side flexion Hip Goniometric Range of Motion Hip Measured in Degrees Left Active Hip ROM WFL Yes Right Hip ROM WFL Yes PT-OP-L Special Tests Start: 07/27/18 08:34 Freq: Status: Active Protocol: Document 07/26/18 17:30 EA (Rec: 07/27/18 09:34 EA [id number]) Special Tests Lumbar Spine Special Tests Other- 1 Test Results Neg Gaenlen's Slump Test Results negative Straight Leg Raise Test Results negative Compression Test Results negative PT-OP-M Strength Start: 07/27/18 08:34 Freq: Status: Active Protocol: Document 07/26/18 17:30 EA (Rec: 07/27/18 09:34 EA [id number]) Hip Strength Hip Manual Muscle Testing Right Reason Not Measured WFL Left Reason Not Measured WFL PT-OP-Q Treatments Start: 07/27/18 08:34 Freq: Status: Active Protocol: Document 12/01/18 12:46 AMH (Rec: 12/01/18 12:58 AMH [email or web address]) Cardio Equipment Recumbent Stepper (Sci-Fit) Duration (Minutes) 6 Resistance 1.5-2 Seat Position 11 Therapeutic Exercises Supine Exercises psoas str Supine Exercise Name psoas stretch Side bilateral Reps/Minutes 30 sec hold x 2 reps Comments single LE off edge of bed 11 Supine Exercise Name Hamstring Stretch Side bilateral Reps/Minutes 3x30 each Comments with gait belt 9 Supine Exercise Name Posterior pelvic tilts Reps/Minutes 2 x 10 reps figure 4 stretch Supine Exercise Name figure 4 stretch Side bilateral Reps/Minutes x3 reps Comments left tighter than right 2 Supine Exercise Name Lower trunk rotation Side bilateral Reps/Minutes x15 each way 1 Supine Exercise Name bridges w/core Reps/Minutes x 12 reps Standing Exercises psoas str. Standing Exercise Name psoas stretch Side bilateral Reps/Minutes 30 sec x 3 reps each Comments lunge position 7 Standing Exercise Name squat Reps/Minutes 15 6 Standing Exercise Name standing sandeep calf stretch Side bilateral Equipment Used SANDEEP Reps/Minutes 30 sec hold x 2 reps Other Exercises Dana pose Other Exercise Name dana pose cat/camel Other Exercise Name cat/cow PT-OP-R Modalities Start: 07/27/18 08:34 Freq: Status: Active Protocol: Document 12/01/18 12:46 AMH (Rec: 12/01/18 12:58 [email or web address]) Hot Pack/Cold Pack Treatment Hot Pack Location low back Treatment Duration (minutes) 12 PT-OP-T Assessment and Plan Start: 07/27/18 08:34 Freq: Status: Active Protocol: Document 12/01/18 12:46 AMH (Rec: 12/01/18 12:58 AMH [email or web address]) Physical Therapy Assessment Assessment Summary Assessment Subha had adaped a position to stretch her hip flexor that involved both legs straight and leaning into lumbar extension. I demonstrated standing iliopsoas stretch with the opposite knee bent Physical Therapy Plan Frequency and Duration Frequency of Treatment 2x/Week Duration of Treatment 2 month Plan of Care Start Date 11/21/18 Plan of Care End Date 01/21/19 Therapeutic Interventions Therapeutic Interventions Aquatic Therapy Balance Training Home Exercise Program Joint Mobilizations Manual Therapy Patient/Caregiver Education Self-Care/Home Management Soft Tissue Mobilization Taping Therapeutic Activities Therapeutic Exercises Modalities Cold Pack/Ice Massage Electric Stimulation Hot Packs Traction- Mechanical Ultrasound Next Visit Focus/Plan Next Note Type Treatment Note Next Visit Plan Continue PT focusing on independence with a home exercise program
--- NOTE | 2018-12-03 14:49 | PT.OTN ---
Current Diagnoses Low back pain (12/03/18) Physical Therapy Treatment Note PT-OP-A Visit Information Start: 07/27/18 08:34 Freq: Status: Active Protocol: Document 12/03/18 14:39 SA (Rec: 12/03/18 14:49 SA [email or web address]) Out-Patient Physical Therapy Visit Information Visit Information Visit Type Treatment Note Visit Start Time 13:55 Visit Stop Time 14:40 Total Visit Minutes 45 Visit Number 28 Number of PRODUCT TEST ENGINEER Visits 1 PT-OP-B Current Condition Start: 07/27/18 08:34 Freq: Status: Active Protocol: Document 07/26/18 17:30 EA (Rec: 07/27/18 09:34 EA [id number]) Current Condition History of Current Condition Onset Date June/2018 Current Complaints Localized low back rated 6/10 History of Current Condition Present condition started just before the end of May 2018 with no known reasons. Patient reports she does regular sitted cardio machines exercises and follow videos yoga exercises that includes supine leg ups and other core exerises. Pt reports she does looks after two grand kids but aware about body mechanics. Patient denies any loss of function to both LE's; states pain is increased with long duration of standing, brushing teeth and washing dishes. She also reports difficulty of getting up in the bed due to aches and back sore that mostly in the morning; states pain decreased with help of heating pads. Patient denies any X-ray or any low back diagnostic imaging performed in the past. Prior Treatments and Tests Oral steroids for back pain: Had negative reactions Future Testing and Treatments Planned None identified. Treatment Goals Patient/Caregiver Goals Patient would like to eliminate low back pain so she could back to her usual daily activities with no limitation . 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 Current Functional Impairments (Reported) Functional Limitations- ADL's Independent with limitation to bending and lifting Functional Limitations- Mobility/Gait Indep with no AD but limited due to to increased in pain Functional Limitations- Work/School Limited teaching ability due to increased in pain PT-OP-C Subjective Start: 07/27/18 08:34 Freq: Status: Active Protocol: Document 12/03/18 14:39 SA (Rec: 12/03/18 14:49 SA [email or web address]) OP-PT Subjective Patient Comments Patient Comments Pt with c/o L hip flexor pain and difficulty with hip EXT, pt resents with slight forward flexed posture which is unusual for her as she usually has very good standing posture. PT-OP-G Mobility & Gait Start: 07/27/18 08:34 Freq: Status: Active Protocol: Document 07/26/18 17:30 EA (Rec: 07/27/18 09:34 EA [id number]) OP Gait Assessment Comments Gait Comments No gait deviation noted Stair Climbing Evaluation Comments Stair Climbing Comments No stairs difficulty PT-OP-J Posture/Palpation/Skin Start: 07/27/18 08:34 Freq: Status: Active Protocol: Document 07/26/18 17:30 EA (Rec: 07/27/18 09:34 EA [id number]) Posture Evaluation Comments Posture Comments Good general posture with slight increased in lumbar lordosis Palpation Assessment Location One Palpation Location Both paralumbars, QL Palpation Findings Soft Tissue Tightness Muscle Guarding Tenderness Skin Assessment Other Assessments Skin Assessment Comments Palpable electronic device placed to R upper gluteal area PT-OP-K Range of Motion Start: 07/27/18 08:34 Freq: Status: Active Protocol: Document 07/26/18 17:30 EA (Rec: 07/27/18 09:34 EA [id number]) Lumbar Spine Range of Motion Lumbar Spine Active Percentage Testing Position Supine Flexion 70 Extension 40 Rotation Left 80 Rotation Right 80 Lateral Flexion Left 65 Lateral Flexion Right 60 ROM Limitations Soft Tissue Tightness Pain Comments localized Pain increased with Extension> flexion> side flexion Hip Goniometric Range of Motion Hip Measured in Degrees Left Active Hip ROM WFL Yes Right Hip ROM WFL Yes PT-OP-L Special Tests Start: 07/27/18 08:34 Freq: Status: Active Protocol: Document 07/26/18 17:30 EA (Rec: 07/27/18 09:34 EA [id number]) Special Tests Lumbar Spine Special Tests Other- 1 Test Results Neg Gaenlen's Slump Test Results negative Straight Leg Raise Test Results negative Compression Test Results negative PT-OP-M Strength Start: 07/27/18 08:34 Freq: Status: Active Protocol: Document 07/26/18 17:30 EA (Rec: 07/27/18 09:34 EA [id number]) Hip Strength Hip Manual Muscle Testing Right Reason Not Measured WFL Left Reason Not Measured WFL PT-OP-Q Treatments Start: 07/27/18 08:34 Freq: Status: Active Protocol: Document 12/03/18 14:39 SA (Rec: 12/03/18 14:49 [email or web address]) Therapeutic Exercises Supine Exercises psoas str Supine Exercise Name psoas stretch Side bilateral Reps/Minutes 30 sec hold x 2 reps Comments single LE off edge of bed 11 Supine Exercise Name Hamstring Stretch Side bilateral Reps/Minutes 3x30 each Comments with gait belt 10 Supine Exercise Name Roll In Equipment Used small ball between knees Reps/Minutes 2x10 Comments with post pelvic tilt 9 Supine Exercise Name Posterior pelvic tilts Reps/Minutes 2 x 10 reps figure 4 stretch Supine Exercise Name figure 4 stretch Side bilateral Reps/Minutes x3 reps Comments left tighter than right 2 Supine Exercise Name Lower trunk rotation Side bilateral Reps/Minutes x15 each way 1 Supine Exercise Name bridges w/core Reps/Minutes x 12 reps Other Exercises Darian pose Other Exercise Name darian pose cat/camel Other Exercise Name cat/cow Reps/Minutes x 10 reps Comments she reports this is difficult for her Manual Therapy Treatment Soft Tissue Mobilization L hip Flexors Body Location L hip Flexors Mobilization Type Cross-Friction Rolling Trigger Point Release Intensity/Depth Moderate Body Position Sidelying 2 Body Location psoas/iliacus Mobilization Type Rolling Sustained Pressure Intensity/Depth Moderate Body Position Supine PT-OP-R Modalities Start: 07/27/18 08:34 Freq: Status: Active Protocol: Document 12/03/18 14:39 (Rec: 12/03/18 14:49 [email or web address]) Hot Pack/Cold Pack Treatment Hot Pack Location L hip Flexors Patient Position Supine Treatment Duration (minutes) 10 Patient Tolerance Good Comments Prior to hip Flexor stretching PT-OP-T Assessment and Plan Start: 07/27/18 08:34 Freq: Status: Active Protocol: Document 12/03/18 14:39 (Rec: 12/03/18 14:49 [email or web address]) Physical Therapy Assessment Assessment Summary Assessment Pt tolerated heat, STM and stretching well, in that order . Significant reduction in hip flexor pain/tightness post treatment with improved standing/walking posture. Pt to continue with heat and hip flexor stretching at home. Physical Therapy Plan Next Visit Focus/Plan Next Note Type Treatment Note Next Visit Plan Continue PT focusing on independence with a home exercise program
--- NOTE | 2018-12-06 14:53 | PT.OTN ---
Current Diagnoses Low back pain (12/06/18) Physical Therapy Treatment Note PT-OP-A Visit Information Start: 07/27/18 08:34 Freq: Status: Active Protocol: Document 12/03/18 14:39 SA (Rec: 12/03/18 14:49 SA [email or web address]) Out-Patient Physical Therapy Visit Information Visit Information Visit Type Treatment Note Visit Start Time 13:55 Visit Stop Time 14:40 Total Visit Minutes 45 Visit Number 28 Number of TRIMMER OPERATOR Visits 1 PT-OP-B Current Condition Start: 07/27/18 08:34 Freq: Status: Active Protocol: Document 07/26/18 17:30 EA (Rec: 07/27/18 09:34 EA [id number]) Current Condition History of Current Condition Onset Date June/2018 Current Complaints Localized low back rated 6/10 History of Current Condition Present condition started just before the end of May 2018 with no known reasons. Patient reports she does regular sitted cardio machines exercises and follow videos yoga exercises that includes supine leg ups and other core exerises. Pt reports she does looks after two grand kids but aware about body mechanics. Patient denies any loss of function to both LE's; states pain is increased with long duration of standing, brushing teeth and washing dishes. She also reports difficulty of getting up in the bed due to aches and back sore that mostly in the morning; states pain decreased with help of heating pads. Patient denies any X-ray or any low back diagnostic imaging performed in the past. Prior Treatments and Tests Oral steroids for back pain: Had negative reactions Future Testing and Treatments Planned None identified. Treatment Goals Patient/Caregiver Goals Patient would like to eliminate low back pain so she could back to her usual daily activities with no limitation . 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 Current Functional Impairments (Reported) Functional Limitations- ADL's Independent with limitation to bending and lifting Functional Limitations- Mobility/Gait Indep with no AD but limited due to to increased in pain Functional Limitations- Work/School Limited teaching ability due to increased in pain PT-OP-C Subjective Start: 07/27/18 08:34 Freq: Status: Active Protocol: Document 12/06/18 14:45 [facility] (Rec: 12/06/18 14:53 [facility] [email or web address]) OP-PT Subjective Patient Comments Patient Comments Trudi reports she fell rollar skating and hit her left eye causing a black eye, she also aggravated her right shoulder going down. She has a MD appt today for a Xray. She notes the rollar skating was feeling really good on her hips to stretch them out but when she decided to go backwards is when she fell PT-OP-G Mobility & Gait Start: 07/27/18 08:34 Freq: Status: Active Protocol: Document 07/26/18 17:30 EA (Rec: 07/27/18 09:34 EA [id number]) OP Gait Assessment Comments Gait Comments No gait deviation noted Stair Climbing Evaluation Comments Stair Climbing Comments No stairs difficulty PT-OP-J Posture/Palpation/Skin Start: 07/27/18 08:34 Freq: Status: Active Protocol: Document 07/26/18 17:30 EA (Rec: 07/27/18 09:34 EA [id number]) Posture Evaluation Comments Posture Comments Good general posture with slight increased in lumbar lordosis Palpation Assessment Location One Palpation Location Both paralumbars, QL Palpation Findings Soft Tissue Tightness Muscle Guarding Tenderness Skin Assessment Other Assessments Skin Assessment Comments Palpable electronic device placed to R upper gluteal area PT-OP-K Range of Motion Start: 07/27/18 08:34 Freq: Status: Active Protocol: Document 07/26/18 17:30 EA (Rec: 07/27/18 09:34 EA [id number]) Lumbar Spine Range of Motion Lumbar Spine Active Percentage Testing Position Supine Flexion 70 Extension 40 Rotation Left 80 Rotation Right 80 Lateral Flexion Left 65 Lateral Flexion Right 60 ROM Limitations Soft Tissue Tightness Pain Comments localized Pain increased with Extension> flexion> side flexion Hip Goniometric Range of Motion Hip Measured in Degrees Left Active Hip ROM WFL Yes Right Hip ROM WFL Yes PT-OP-L Special Tests Start: 07/27/18 08:34 Freq: Status: Active Protocol: Document 07/26/18 17:30 EA (Rec: 07/27/18 09:34 EA [id number]) Special Tests Lumbar Spine Special Tests Other- 1 Test Results Neg Gaenlen's Slump Test Results negative Straight Leg Raise Test Results negative Compression Test Results negative PT-OP-M Strength Start: 07/27/18 08:34 Freq: Status: Active Protocol: Document 07/26/18 17:30 EA (Rec: 07/27/18 09:34 EA [id number]) Hip Strength Hip Manual Muscle Testing Right Reason Not Measured WFL Left Reason Not Measured WFL PT-OP-Q Treatments Start: 07/27/18 08:34 Freq: Status: Active Protocol: Document 12/06/18 14:45 [facility] (Rec: 12/06/18 14:53 [facility] [email or web address]) Cardio Equipment Elliptical Duration (Minutes) 5 Therapeutic Exercises Supine Exercises DLS Marching Supine Exercise Name Marching Side bilateral Reps/Minutes 12x figure 4 stretch Supine Exercise Name figure 4 stretch Side bilateral Reps/Minutes x3 reps Comments left tighter than right pelvic tilt Supine Exercise Name pelvic tilts Reps/Minutes x 10 2 Supine Exercise Name Lower trunk rotation Side bilateral Reps/Minutes x15 each way 1 Supine Exercise Name bridges w/core Reps/Minutes x 12 reps Sidelying Exercises 2 Sidelying Exercise Name clamshell Equipment Used L1 Reps/Minutes 15 1 Sidelying Exercise Name sidelying hip abduction Reps/Minutes 3 x 10 reps Standing Exercises psoas str. Standing Exercise Name psoas stretch Side bilateral Reps/Minutes 30 sec x 3 reps each Comments lunge position 7 Standing Exercise Name squat Reps/Minutes 15 PT-OP-R Modalities Start: 07/27/18 08:34 Freq: Status: Active Protocol: Document 12/06/18 14:45 [facility] (Rec: 12/06/18 14:53 [facility] [email or web address]) Hot Pack/Cold Pack Treatment Hot Pack Location L hip Flexors Patient Position Supine Treatment Duration (minutes) 10 Patient Tolerance Good Comments Prior to hip Flexor stretching PT-OP-T Assessment and Plan Start: 07/27/18 08:34 Freq: Status: Active Protocol: Document 12/06/18 14:45 [facility] (Rec: 12/06/18 14:53 [facility] [email or web address]) Physical Therapy Assessment Assessment Summary Assessment Subha liked the eliptical national sales trainer for her hip ROM, I held off on arms on the national sales trainer due to shoulder pain on the right, Subha is moving better overall in her LE Physical Therapy Plan Frequency and Duration Frequency of Treatment 2x/Week Duration of Treatment 2 month Plan of Care Start Date 11/21/18 Plan of Care End Date 01/21/19 Therapeutic Interventions Therapeutic Interventions Aquatic Therapy Balance Training Home Exercise Program Joint Mobilizations Manual Therapy Patient/Caregiver Education Self-Care/Home Management Soft Tissue Mobilization Taping Therapeutic Activities Therapeutic Exercises Modalities Cold Pack/Ice Massage Electric Stimulation Hot Packs Traction- Mechanical Ultrasound Next Visit Focus/Plan Next Note Type Treatment Note Next Visit Plan Continue PT focusing on independence with a home exercise program. Check in with Subha next visit on status of her Xray on her shoulder
--- NOTE | 2018-12-09 15:25 | PT.OTN ---
Current Diagnoses Low back pain (12/09/18) Physical Therapy Treatment Note PT-OP-A Visit Information Start: 07/27/18 08:34 Freq: Status: Active Protocol: Document 12/09/18 15:25 RCC (Rec: 12/10/18 09:19 [facility] [email or web address]) Out-Patient Physical Therapy Visit Information Visit Information Visit Type Treatment Note Visit Start Time 15:25 Visit Stop Time 16:05 Total Visit Minutes 40 Visit Number 29 Number of PICKLING SOLUTION MAKER Visits 0 Evaluation Information Evaluation Date 07/26/18 PT-OP-B Current Condition Start: 07/27/18 08:34 Freq: Status: Active Protocol: Document 07/26/18 17:30 EA (Rec: 07/27/18 09:34 EA [id number]) Current Condition History of Current Condition Onset Date June/2018 Current Complaints Localized low back rated 6/10 History of Current Condition Present condition started just before the end of May 2018 with no known reasons. Patient reports she does regular sitted cardio machines exercises and follow videos yoga exercises that includes supine leg ups and other core exerises. Pt reports she does looks after two grand kids but aware about body mechanics. Patient denies any loss of function to both LE's; states pain is increased with long duration of standing, brushing teeth and washing dishes. She also reports difficulty of getting up in the bed due to aches and back sore that mostly in the morning; states pain decreased with help of heating pads. Patient denies any X-ray or any low back diagnostic imaging performed in the past. Prior Treatments and Tests Oral steroids for back pain: Had negative reactions Future Testing and Treatments Planned None identified. Treatment Goals Patient/Caregiver Goals Patient would like to eliminate low back pain so she could back to her usual daily activities with no limitation . 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 Current Functional Impairments (Reported) Functional Limitations- ADL's Independent with limitation to bending and lifting Functional Limitations- Mobility/Gait Indep with no AD but limited due to to increased in pain Functional Limitations- Work/School Limited teaching ability due to increased in pain PT-OP-C Subjective Start: 07/27/18 08:34 Freq: Status: Active Protocol: Document 12/09/18 15:25 RCC (Rec: 12/10/18 09:19 RCC [email or web address]) OP-PT Subjective Patient Comments Patient Comments Pt states that her shoulder is doing better today after falling on her roller skates, her main concern that she noticed was that her hip flexor on the L is back to being stiff and limiting her walking. PT-OP-G Mobility & Gait Start: 07/27/18 08:34 Freq: Status: Active Protocol: Document 07/26/18 17:30 EA (Rec: 07/27/18 09:34 EA [id number]) OP Gait Assessment Comments Gait Comments No gait deviation noted Stair Climbing Evaluation Comments Stair Climbing Comments No stairs difficulty PT-OP-J Posture/Palpation/Skin Start: 07/27/18 08:34 Freq: Status: Active Protocol: Document 07/26/18 17:30 EA (Rec: 07/27/18 09:34 EA [id number]) Posture Evaluation Comments Posture Comments Good general posture with slight increased in lumbar lordosis Palpation Assessment Location One Palpation Location Both paralumbars, QL Palpation Findings Soft Tissue Tightness Muscle Guarding Tenderness Skin Assessment Other Assessments Skin Assessment Comments Palpable electronic device placed to R upper gluteal area PT-OP-K Range of Motion Start: 07/27/18 08:34 Freq: Status: Active Protocol: Document 07/26/18 17:30 EA (Rec: 07/27/18 09:34 EA [id number]) Lumbar Spine Range of Motion Lumbar Spine Active Percentage Testing Position Supine Flexion 70 Extension 40 Rotation Left 80 Rotation Right 80 Lateral Flexion Left 65 Lateral Flexion Right 60 ROM Limitations Soft Tissue Tightness Pain Comments localized Pain increased with Extension> flexion> side flexion Hip Goniometric Range of Motion Hip Measured in Degrees Left Active Hip ROM WFL Yes Right Hip ROM WFL Yes PT-OP-L Special Tests Start: 07/27/18 08:34 Freq: Status: Active Protocol: Document 07/26/18 17:30 EA (Rec: 07/27/18 09:34 EA [id number]) Special Tests Lumbar Spine Special Tests Other- 1 Test Results Neg Gaenlen's Slump Test Results negative Straight Leg Raise Test Results negative Compression Test Results negative PT-OP-M Strength Start: 07/27/18 08:34 Freq: Status: Active Protocol: Document 07/26/18 17:30 EA (Rec: 07/27/18 09:34 EA [id number]) Hip Strength Hip Manual Muscle Testing Right Reason Not Measured WFL Left Reason Not Measured WFL PT-OP-Q Treatments Start: 07/27/18 08:34 Freq: Status: Active Protocol: Document 12/09/18 15:25 RCC (Rec: 12/10/18 09:19 RCC [email or web address]) Therapeutic Exercises Supine Exercises Andre Test stretch Side left Reps/Minutes 3x30 sec Comments rectus and psoas psoas str Supine Exercise Name psoas stretch Side bilateral Reps/Minutes 30 sec hold x 2 reps Comments single LE off edge of bed 9 Supine Exercise Name Posterior pelvic tilts Reps/Minutes 2 x 10 reps figure 4 stretch Supine Exercise Name figure 4 stretch Side left Reps/Minutes x3 reps Standing Exercises psoas str. Standing Exercise Name psoas stretch Side bilateral Reps/Minutes 30 sec x 3 reps each Comments lunge position Therapeutic Activity Therapeutic Activity pt education Name edu. iliopsoas attachments on skeleton, how it can affect gait, low back Gait Training Gait Activity level gait Description decrease gait speed, shorten step length to decrease tension on psoas Device Used none Level of Assistance VC Surface level Treatment Focus gait speed and step length to avoid aggravation of psoas/hip flexors on L Comments 10 min PT-OP-R Modalities Start: 07/27/18 08:34 Freq: Status: Active Protocol: Document 12/09/18 15:25 RCC (Rec: 12/10/18 09:19 RCC [email or web address]) Hot Pack/Cold Pack Treatment Hot Pack Location L hip Flexors, low back Patient Position Supine Treatment Duration (minutes) 10 Patient Tolerance Good PT-OP-T Assessment and Plan Start: 07/27/18 08:34 Freq: Status: Active Protocol: Document 12/09/18 15:25 RCC (Rec: 12/10/18 09:19 RCC [email or web address]) Physical Therapy Assessment Assessment Summary Assessment Pt required continuous cuing and reminders to either slow gait speed down or shorten step length. When she was compliant with this, she did not have hip flexor pain on the L. Overall, pt appears to be very concerned about the L hip, as she reports it had disappeared just before falling on her roller skates. Pt brought in a new script for L shoulder and wrist pain s/p fall on roller blades, but PT not made aware of this until after pt's session was completed. Physical Therapy Plan Frequency and Duration Frequency of Treatment 2x/Week Duration of Treatment 2 month Plan of Care Start Date 11/21/18 Plan of Care End Date 01/21/19 Next Visit Focus/Plan Next Note Type Treatment Note Next Visit Plan assess hip flexor; obj measures L shoulder and wrist if she is having issues.
--- NOTE | 2018-12-13 11:24 | PT.OTN ---
Current Diagnoses Low back pain (12/13/18) Physical Therapy Treatment Note PT-OP-A Visit Information Start: 07/27/18 08:34 Freq: Status: Active Protocol: Document 12/13/18 10:05 [facility] (Rec: 12/13/18 11:24 [facility] [id number]) Out-Patient Physical Therapy Visit Information Visit Information Visit Type Treatment Note Visit Start Time 10:30 Visit Stop Time 11:10 Total Visit Minutes 40 Visit Number 30 Number of EDGER TAILER Visits 0 PT-OP-B Current Condition Start: 07/27/18 08:34 Freq: Status: Active Protocol: Document 07/26/18 17:30 EA (Rec: 07/27/18 09:34 EA [id number]) Current Condition History of Current Condition Onset Date June/2018 Current Complaints Localized low back rated 6/10 History of Current Condition Present condition started just before the end of May 2018 with no known reasons. Patient reports she does regular sitted cardio machines exercises and follow videos yoga exercises that includes supine leg ups and other core exerises. Pt reports she does looks after two grand kids but aware about body mechanics. Patient denies any loss of function to both LE's; states pain is increased with long duration of standing, brushing teeth and washing dishes. She also reports difficulty of getting up in the bed due to aches and back sore that mostly in the morning; states pain decreased with help of heating pads. Patient denies any X-ray or any low back diagnostic imaging performed in the past. Prior Treatments and Tests Oral steroids for back pain: Had negative reactions Future Testing and Treatments Planned None identified. Treatment Goals Patient/Caregiver Goals Patient would like to eliminate low back pain so she could back to her usual daily activities with no limitation . 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 Current Functional Impairments (Reported) Functional Limitations- ADL's Independent with limitation to bending and lifting Functional Limitations- Mobility/Gait Indep with no AD but limited due to to increased in pain Functional Limitations- Work/School Limited teaching ability due to increased in pain PT-OP-C Subjective Start: 07/27/18 08:34 Freq: Status: Active Protocol: Document 12/13/18 10:05 [facility] (Rec: 12/13/18 11:24 [facility] [id number]) OP-PT Subjective Patient Comments Patient Comments Pt reports she has been doing her stretches daily. She is frustrated by walking slowly PT-OP-G Mobility & Gait Start: 07/27/18 08:34 Freq: Status: Active Protocol: Document 07/26/18 17:30 EA (Rec: 07/27/18 09:34 EA [id number]) OP Gait Assessment Comments Gait Comments No gait deviation noted Stair Climbing Evaluation Comments Stair Climbing Comments No stairs difficulty PT-OP-J Posture/Palpation/Skin Start: 07/27/18 08:34 Freq: Status: Active Protocol: Document 07/26/18 17:30 EA (Rec: 07/27/18 09:34 EA [id number]) Posture Evaluation Comments Posture Comments Good general posture with slight increased in lumbar lordosis Palpation Assessment Location One Palpation Location Both paralumbars, QL Palpation Findings Soft Tissue Tightness Muscle Guarding Tenderness Skin Assessment Other Assessments Skin Assessment Comments Palpable electronic device placed to R upper gluteal area PT-OP-K Range of Motion Start: 07/27/18 08:34 Freq: Status: Active Protocol: Document 07/26/18 17:30 EA (Rec: 07/27/18 09:34 EA [id number]) Lumbar Spine Range of Motion Lumbar Spine Active Percentage Testing Position Supine Flexion 70 Extension 40 Rotation Left 80 Rotation Right 80 Lateral Flexion Left 65 Lateral Flexion Right 60 ROM Limitations Soft Tissue Tightness Pain Comments localized Pain increased with Extension> flexion> side flexion Hip Goniometric Range of Motion Hip Measured in Degrees Left Active Hip ROM WFL Yes Right Hip ROM WFL Yes PT-OP-L Special Tests Start: 07/27/18 08:34 Freq: Status: Active Protocol: Document 07/26/18 17:30 EA (Rec: 07/27/18 09:34 EA [id number]) Special Tests Lumbar Spine Special Tests Other- 1 Test Results Neg Gaenlen's Slump Test Results negative Straight Leg Raise Test Results negative Compression Test Results negative PT-OP-M Strength Start: 07/27/18 08:34 Freq: Status: Active Protocol: Document 07/26/18 17:30 EA (Rec: 07/27/18 09:34 EA [id number]) Hip Strength Hip Manual Muscle Testing Right Reason Not Measured WFL Left Reason Not Measured WFL PT-OP-Q Treatments Start: 07/27/18 08:34 Freq: Status: Active Protocol: Document 12/13/18 10:05 [facility] (Rec: 12/13/18 11:24 [facility] [id number]) Therapeutic Exercises Supine Exercises Andre Test stretch Side left Reps/Minutes 2x30 sec Comments rectus and psoas Standing Exercises psoas str. Standing Exercise Name psoas stretch Side bilateral Reps/Minutes 30 sec x 2 reps each Comments lunge position 7 Standing Exercise Name standing back ext w/hands at wall and standing Reps/Minutes 30 sec Comments for hip flexor & back stretch Gait Training Gait Activity level gait Description focus on push off and pelvis motion Manual Therapy Treatment Soft Tissue Mobilization L hip Flexors Body Location L hip Flexors Mobilization Type Cross-Friction Rolling Trigger Point Release Intensity/Depth Moderate Body Position Supine Neuro Re-Education Treatment Other Activities PNF Details post depression Comments rhythmic initiation, sustained holds & Combo of isotonics w/ LE pattern & pelvis Self-Care/Home Management Treatment Education Other Education edu on importance of posture & edu on discussing w/MD her concerns about if she should still be skating d/t it being an important part of her life, but concern about not wanting to get injured PT-OP-R Modalities Start: 07/27/18 08:34 Freq: Status: Active Protocol: Document 12/09/18 15:25 RCC (Rec: 12/10/18 09:19 RCC [email or web address]) Hot Pack/Cold Pack Treatment Hot Pack Location L hip Flexors, low back Patient Position Supine Treatment Duration (minutes) 10 Patient Tolerance Good PT-OP-T Assessment and Plan Start: 07/27/18 08:34 Freq: Status: Active Protocol: Document 12/13/18 10:05 [facility] (Rec: 12/13/18 11:24 [facility] [id number]) Physical Therapy Assessment Goals Four Impairment No HEP in place [employer] Goal (LTG) Patient will exhibit independent safe home exercise program LTG Duration achieved progressing as tolerated Three Impairment Impaired sitting tolerance with less than 10 mins Mcfp Goal (LTG) Patient will sit more than 1 hour with no increase in symptoms LTG Duration 4 wks Two Impairment Impaired Lumbosacral ROM Mcfp Goal (LTG) Patient will exhibits near functional range lumbosacral ROM to enhance functional mobility without limitation LTG Duration 4 wks One Impairment Oswetry low back impairement scale of 34/50 [employer] Goal (LTG) Patient will have Oswetry low back impairment scale of < 15/ 50 LTG Duration 4 wks Assessment Summary Assessment Pt was able to return to push off and full gait pattern with good pelvis motion after treatment with significantly dec ant L hip pain. Physical Therapy Plan Frequency and Duration Frequency of Treatment 2x/Week Duration of Treatment 2 month Plan of Care Start Date 11/21/18 Plan of Care End Date 01/21/19 Next Visit Focus/Plan Next Note Type Treatment Note Next Visit Plan assess hip mobility as needed and cont to work on gait pattern
--- NOTE | 2018-12-22 19:07 | PT.OTN ---
Current Diagnoses Low back pain (12/22/18) Physical Therapy Treatment Note PT-OP-A Visit Information Start: 07/27/18 08:34 Freq: Status: Active Protocol: Document 12/22/18 19:02 [facility] (Rec: 12/22/18 19:07 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 Patient reports she does regular sitted cardio machines exercises and follow videos yoga exercises that includes supine leg ups and other core exerises. Pt reports she does looks after two grand kids but aware about body mechanics. Patient denies any loss of function to both LE's; states pain is increased with long duration of standing, brushing teeth and washing dishes. She also reports difficulty of getting up in the bed due to aches and back sore that mostly in the morning; states pain decreased with help of heating pads. Patient denies any X-ray or any low back diagnostic imaging performed in the past. Prior Treatments and Tests Oral steroids for back pain: Had negative reactions Future Testing and Treatments Planned None identified. Treatment Goals Patient/Caregiver Goals Patient would like to eliminate low back pain so she could back to her usual daily activities with no limitation . 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 (Rec: 12/22/18 19:07 [facility] [id number]) OP-PT Subjective Patient Comments Patient Comments Pt reports she felt great for 4 days after last treatment but after sitting int he car to go to [place] and back, she has had inc pain. PT-OP-G Mobility & Gait Start: 07/27/18 08:34 Freq: Status: Active Protocol: Document 07/26/18 17:30 EA (Rec: 07/27/18 09:34 EA [id number]) OP Gait Assessment Comments Gait Comments No gait deviation noted Stair Climbing Evaluation Comments Stair Climbing Comments No stairs difficulty PT-OP-J Posture/Palpation/Skin Start: 07/27/18 08:34 Freq: Status: Active Protocol: Document 07/26/18 17:30 EA (Rec: 07/27/18 09:34 EA [id number]) Posture Evaluation Comments Posture Comments Good general posture with slight increased in lumbar lordosis Palpation Assessment Location One Palpation Location Both paralumbars, QL Palpation Findings Soft Tissue Tightness Muscle Guarding Tenderness Skin Assessment Other Assessments Skin Assessment Comments Palpable electronic device placed to R upper gluteal area PT-OP-K Range of Motion Start: 07/27/18 08:34 Freq: Status: Active Protocol: Document 07/26/18 17:30 EA (Rec: 07/27/18 09:34 EA [id number]) Lumbar Spine Range of Motion Lumbar Spine Active Percentage Testing Position Supine Flexion 70 Extension 40 Rotation Left 80 Rotation Right 80 Lateral Flexion Left 65 Lateral Flexion Right 60 ROM Limitations Soft Tissue Tightness Pain Comments localized Pain increased with Extension> flexion> side flexion Hip Goniometric Range of Motion Hip Left Active Hip ROM WFL Yes Right Hip ROM WFL Yes PT-OP-L Special Tests Start: 07/27/18 08:34 Freq: Status: Active Protocol: Document 07/26/18 17:30 EA (Rec: 07/27/18 09:34 EA [id number]) Special Tests Lumbar Spine Special Tests Other- 1 Test Results Neg Gaenlen's Slump Test Results negative Straight Leg Raise Test Results negative Compression Test Results negative PT-OP-M Strength Start: 07/27/18 08:34 Freq: Status: Active Protocol: Document 07/26/18 17:30 EA (Rec: 07/27/18 09:34 EA [id number]) Hip Strength Hip Manual Muscle Testing Right Reason Not Measured WFL Left Reason Not Measured WFL PT-OP-Q Treatments Start: 07/27/18 08:34 Freq: Status: Active Protocol: Document 12/22/18 19:02 [facility] (Rec: 12/22/18 19:07 [facility] [id number]) Therapeutic Exercises Sidelying Exercises 2 Sidelying Exercise Name basking seal Side bilateral Reps/Minutes 10 Comments for ant elevation/post depression Standing Exercises 1 Standing Exercise Name gait at wall Manual Therapy Treatment Soft Tissue Mobilization L hip Flexors Body Location L hip Flexors Mobilization Type Cross-Friction Rolling Trigger Point Release Intensity/Depth Superficial Body Position Supine Comments w/edu on self massage 3 Body Location adductors L Mobilization Type Rolling Intensity/Depth Superficial Body Position Supine Neuro Re-Education Treatment Other Activities PNF Details post depression & ant elevation Comments rhythmic initiation, sustained holds & Combo of isotonics w/ LE pattern & pelvis PT-OP-R Modalities Start: 07/27/18 08:34 Freq: Status: Active Protocol: Document 12/22/18 19:02 [facility] (Rec: 12/22/18 19:07 [facility] [email or web address]) Hot Pack/Cold Pack Treatment Hot Pack Location L hip Flexors, low back Patient Position Supine Treatment Duration (minutes) 15 Patient Tolerance Good PT-OP-T Assessment and Plan Start: 07/27/18 08:34 Freq: Status: Active Protocol: Document 12/22/18 19:02 [facility] (Rec: 12/22/18 19:07 [facility] [email or web address]) Physical Therapy Assessment Goals Four Impairment No HEP in place Group Manager Goal (LTG) Patient will exhibit independent safe home exercise program LTG Duration achieved progressing as tolerated Three Impairment Impaired sitting tolerance with less than 10 mins Group Manager Goal (LTG) Patient will sit more than 1 hour with no increase in symptoms LTG Duration 4 wks Two Impairment Impaired Lumbosacral ROM Group Manager Goal (LTG) Patient will exhibits near functional range lumbosacral ROM to enhance functional mobility without limitation LTG Duration 4 wks One Impairment Oswetry low back impairement scale of 34/50 Group Manager Goal (LTG) Patient will have Oswetry low back impairment scale of < 15/ 50 LTG Duration 4 wks Assessment Summary Assessment Pt had improved gait and dec pain after treatment. She had inc tenderness today to ant hip likely d/t inc sitting over the weekend. She does improve with her gait mecahnics & hip ROM w/PNF training. Physical Therapy Plan Frequency and Duration Frequency of Treatment 2x/Week Duration of Treatment 2 month Plan of Care Start Date 11/21/18 Plan of Care End Date 01/21/19 Next Visit Focus/Plan Next Note Type Treatment Note Next Visit Plan work on pelvic girdle patterns associated with LE PNF patterns as this is what pt feels helps the most and does improve her gait & dec pain, STM to ant L hip (gentle) as pt cannot tolerate moderate to deep pressure, inf hip glides & distraction/traction as tolerarted
--- NOTE | 2018-12-24 16:00 | PT.OTN ---
Current Diagnoses Low back pain (12/22/18) Physical Therapy Treatment Note PT-OP-A Visit Information Start: 07/27/18 08:34 Freq: Status: Active Protocol: Document 12/24/18 16:00 [facility] (Rec: 12/24/18 18:31 [facility] [email or web address]) Out-Patient Physical Therapy Visit Information Visit Information Visit Type Treatment Note Visit Note needs Re-eval for shoulder next P.T. 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 Visit Start Time 16:00 Visit Stop Time 16:55 Total Visit Minutes 55 Visit Number 32 Number of MOBILE UI DESIGNER Visits 0 Evaluation Information Evaluation Date 07/26/18 Precautions Precautions new left shoulder dislocation from fall on roller skates about 3 weeks ago PT-OP-B Current Condition Start: 07/27/18 08:34 Freq: Status: Active Protocol: Document 07/26/18 17:30 EA (Rec: 07/27/18 09:34 EA [id number]) Current Condition History of Current Condition Onset Date June/2018 Current Complaints Localized low back rated 6/10 History of Current Condition Present condition started just before the end of May 2018 with no known reasons. Patient reports she does regular sitted cardio machines exercises and follow videos yoga exercises that includes supine leg ups and other core exerises. Pt reports she does looks after two grand kids but aware about body mechanics. Patient denies any loss of function to both LE's; states pain is increased with long duration of standing, brushing teeth and washing dishes. She also reports difficulty of getting up in the bed due to aches and back sore that mostly in the morning; states pain decreased with help of heating pads. Patient denies any X-ray or any low back diagnostic imaging performed in the past. Prior Treatments and Tests Oral steroids for back pain: Had negative reactions Future Testing and Treatments Planned None identified. Treatment Goals Patient/Caregiver Goals Patient would like to eliminate low back pain so she could back to her usual daily activities with no limitation . 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 The physician gave her a new script to start PT on her shoulder. She has a lot of questions about her HEP today. PT-OP-G Mobility & Gait Start: 07/27/18 08:34 Freq: Status: Active Protocol: Document 07/26/18 17:30 EA (Rec: 07/27/18 09:34 EA [id number]) OP Gait Assessment Comments Gait Comments No gait deviation noted Stair Climbing Evaluation Comments Stair Climbing Comments No stairs difficulty PT-OP-J Posture/Palpation/Skin Start: 07/27/18 08:34 Freq: Status: Active Protocol: Document 07/26/18 17:30 EA (Rec: 07/27/18 09:34 EA [id number]) Posture Evaluation Comments Posture Comments Good general posture with slight increased in lumbar lordosis Palpation Assessment Location One Palpation Location Both paralumbars, QL Palpation Findings Soft Tissue Tightness Muscle Guarding Tenderness Skin Assessment Other Assessments Skin Assessment Comments Palpable electronic device placed to R upper gluteal area PT-OP-K Range of Motion Start: 07/27/18 08:34 Freq: Status: Active Protocol: Document 07/26/18 17:30 EA (Rec: 07/27/18 09:34 EA [id number]) Lumbar Spine Range of Motion Lumbar Spine Active Percentage Testing Position Supine Flexion 70 Extension 40 Rotation Left 80 Rotation Right 80 Lateral Flexion Left 65 Lateral Flexion Right 60 ROM Limitations Soft Tissue Tightness Pain Comments localized Pain increased with Extension> flexion> side flexion Hip Goniometric Range of Motion Hip Left Active Hip ROM WFL Yes Right Hip ROM WFL Yes PT-OP-L Special Tests Start: 07/27/18 08:34 Freq: Status: Active Protocol: Document 07/26/18 17:30 EA (Rec: 07/27/18 09:34 EA [id number]) Special Tests Lumbar Spine Special Tests Other- 1 Test Results Neg Gaenlen's Slump Test Results negative Straight Leg Raise Test Results negative Compression Test Results negative PT-OP-M Strength Start: 07/27/18 08:34 Freq: Status: Active Protocol: Document 07/26/18 17:30 EA (Rec: 07/27/18 09:34 EA [id number]) Hip Strength Hip Manual Muscle Testing Right Reason Not Measured WFL Left Reason Not Measured WFL PT-OP-Q Treatments Start: 07/27/18 08:34 Freq: Status: Active Protocol: Document 12/24/18 16:00 [facility] (Rec: 12/24/18 18:31 [facility] [email or web address]) Therapeutic Exercises Supine Exercises pelvic tilt Supine Exercise Name pelvic tilts Reps/Minutes x 10 Standing Exercises psoas str. Standing Exercise Name psoas stretch Side bilateral Reps/Minutes 30 sec x 2 reps each Comments lunge position Other Exercises Darian pose Other Exercise Name quadruped Side bilateral Reps/Minutes 3 reps Comments limit weight bearing on left shoulder due to pain cat/camel Comments reviewed with pt and answered questions Manual Therapy Treatment Soft Tissue Mobilization L hip Flexors Body Location L hip Flexors Mobilization Type Cross-Friction Rolling Trigger Point Release Intensity/Depth Superficial Body Position Supine Comments w/edu on self massage 3 Body Location adductors L Mobilization Type Cross-Friction Myofascial Release Rolling Intensity/Depth Superficial Body Position Supine Self-Care/Home Management Treatment Education Patient Education Home Exercise Program Pain Management Other Education education on how to modify her HEP to manage her left shoulder pain, ok for pt to do wall-walking with left UE that she did on right shoulder in past, pt to avoid sleeping on left shoulder to manage her pain PT-OP-R Modalities Start: 07/27/18 08:34 Freq: Status: Active Protocol: Document 12/24/18 16:00 [facility] (Rec: 12/24/18 18:31 [facility] [email or web address]) Hot Pack/Cold Pack Treatment Hot Pack Location L hip Flexors Patient Position Supine Treatment Duration (minutes) 15 Patient Tolerance Good Comments at end of treatment Cold Pack Location left shoulder Patient Position Supine Treatment Duration (minutes) 15 Patient Tolerance Good Comments performed at same time as heat PT-OP-T Assessment and Plan Start: 07/27/18 08:34 Freq: Status: Active Protocol: Document 12/24/18 16:00 [facility] (Rec: 12/24/18 18:31 [facility] [email or web address]) Physical Therapy Assessment Goals Four Impairment No HEP in place Long-Term Goal (LTG) Patient will exhibit independent safe home exercise program LTG Duration achieved progressing as tolerated Three Impairment Impaired sitting tolerance with less than 10 mins Long-Term Goal (LTG) Patient will sit more than 1 hour with no increase in symptoms LTG Duration 4 wks Two Impairment Impaired Lumbosacral ROM Long-Term Goal (LTG) Patient will exhibits near functional range lumbosacral ROM to enhance functional mobility without limitation LTG Duration 4 wks One Impairment Oswetry low back impairement scale of 34/50 Long-Term Goal (LTG) Patient will have Oswetry low back impairment scale of < 15/ 50 LTG Duration 4 wks Progress Towards Goals Progress Towards Goals Progressing Toward Goals Progress Comments pt feels her back is improving with treatment Assessment Summary Assessment Pt has new order for left shoulder. Will plan to re-eval to start treatment on left shoulder next P.T. visit. Pt emotional and had a lot of questions about her HEP and pain management this visit. Pt is pleased with her back progression but reports continued pain. She responded well to this treatment session . She is very tender during STM left hip flexors. Physical Therapy Plan Frequency and Duration Frequency of Treatment 2x/Week Duration of Treatment 2 month Plan of Care Start Date 11/21/18 Plan of Care End Date 01/21/19 Therapeutic Interventions Therapeutic Interventions Aquatic Therapy Balance Training Home Exercise Program Joint Mobilizations Manual Therapy Patient/Caregiver Education Self-Care/Home Management Soft Tissue Mobilization Taping Therapeutic Activities Therapeutic Exercises Modalities Cold Pack/Ice Massage Electric Stimulation Hot Packs Traction- Mechanical Ultrasound Next Visit Focus/Plan Next Note Type Re-Evaluation Next Visit Plan P.T. re-eval for shoulder next P.T. visit, for back work on pelvic girdle patterns associated with LE PNF patterns as this is what pt feels helps the most and does improve her gait & dec pain, STM to ant L hip (gentle) as pt cannot tolerate moderate to deep pressure, inf hip glides & distraction/traction as tolerarted
--- NOTE | 2018-12-29 18:48 | PT.OTRE ---
Current Diagnoses Low back pain (12/29/18) Past Medical History (Last Reviewed 10/21/18 @ 14:54 by Jennifer Higginbotham MD) ADHD (attention deficit hyperactivity disorder) (Chronic) Ankle pain (Chronic 2015) Asthma (Chronic 2011) Depression (Chronic 2014) Hypothyroidism (Chronic 1994) Rectocele (Chronic 2013) Shoulder pain (Chronic 1991) Urinary incontinence (Chronic 2013) Frozen shoulder (Resolved 1991) Frozen shoulder (Resolved 1992) Frozen shoulder (Resolved 1993) Hepatitis (Resolved) Hives (Resolved 2016) Surgical History (Last Reviewed 06/30/18 @ 13:01 by JONNY Ospina) Anesthesia (Resolved) History of breast augmentation (Resolved 1974) Status post colonoscopy (Resolved) Provider Visit Care Team Role Provider Type Tiny Henderson MD Family Provider Physician Primary Care Provider Specialty: Family Practice Address: [address] [place] [id number] Email: [email or web address] JONNY Ospina Attending Provider Advanced Transportation Director Specialty: Medical Address: [address] [place] [address] Email: Physical Therapy Re-Evaluation PT-OP-A Visit Information Start: 07/27/18 08:34 Freq: Status: Active Protocol: Document 12/29/18 16:04 [facility] (Rec: 12/29/18 16:48 [facility] [id number]) Out-Patient Physical Therapy Visit Information Visit Information Visit Type Re-Evaluation Visit Start Time 16:00 Visit Stop Time 16:50 Total Visit Minutes 50 Visit Number 33 Number of GARAGE ATTENDANT Visits 0 PT-OP-B Current Condition Start: 07/27/18 08:34 Freq: Status: Active Protocol: Document 12/29/18 16:04 [facility] (Rec: 12/29/18 16:48 [facility] [id number]) Current Condition History of Current Condition Current Complaints LBP & L hip pain; L shoulder History of Current Condition Pt had a fall when skating about a month ago where she hurt her shoulder but it started feeling better. She reports it dislocated and she self relocated it. She cannot sleep on it independtly. Pt reports about 1.5-2 weeks ago and she got a CT and they injected into her shoulder and since then its been worse. Pt report it is like a tooth ache. She does heat every night and has trouble sleeping . Pt reports her back has been doing better but gives out every day at 4pm and she has to lay down on a hard surface to relieve pain. Ant L hip pain is improving. Pt reports some days she is even waking up and her back is feeling good. Pt reports when something stressful happens, pain increases. Prior Treatments and Tests 1. Degenerative joint disease, moderate in glenohumeral joint and mild in acromioclavicular joint. 2. A 3mm intra-articular body in the anteroinferior glenohumeral joint. 3. The inferior glenoid appears irregular suspicious for labral tear. 4. Superior migration of humeral head suspicious for chronic rotator cuff tendon tear Per CT scan Treatment Goals Patient/Caregiver Goals return to typical activity PT-OP-C Subjective Start: 07/27/18 08:34 Freq: Status: Active Protocol: Document 12/29/18 16:04 [facility] (Rec: 12/29/18 18:48 [facility] [id number]) OP-PT Subjective Patient Comments Patient Comments Pt reports her shoulder is giving her a lot of problem. Feels like her back and her L hip flexor is better. PT-OP-G Mobility & Gait Start: 07/27/18 08:34 Freq: Status: Active Protocol: Document 07/26/18 17:30 EA (Rec: 07/27/18 09:34 EA [id number]) OP Gait Assessment Comments Gait Comments No gait deviation noted Stair Climbing Evaluation Comments Stair Climbing Comments No stairs difficulty PT-OP-J Posture/Palpation/Skin Start: 07/27/18 08:34 Freq: Status: Active Protocol: Document 07/26/18 17:30 EA (Rec: 07/27/18 09:34 EA [id number]) Posture Evaluation Comments Posture Comments Good general posture with slight increased in lumbar lordosis Palpation Assessment Location One Palpation Location Both paralumbars, QL Palpation Findings Soft Tissue Tightness Muscle Guarding Tenderness Skin Assessment Other Assessments Skin Assessment Comments Palpable electronic device placed to R upper gluteal area PT-OP-K Range of Motion Start: 07/27/18 08:34 Freq: Status: Active Protocol: Document 12/29/18 16:04 [facility] (Rec: 12/29/18 16:48 [facility] [id number]) Shoulder Goniometric Range of Motion Shoulder Measured in Degrees Right Active Flexion 150 Abduction 167 External Rotation at 0 degrees Abduction 60 Internal Rotation Behind Back (text) T7 Left Active Flexion 62 Abduction 43 External Rotation at 0 degrees Abduction 29 Internal Rotation Behind Back (text) L buttock distal PT-OP-L Special Tests Start: 07/27/18 08:34 Freq: Status: Active Protocol: Document 07/26/18 17:30 EA (Rec: 07/27/18 09:34 EA [id number]) Special Tests Lumbar Spine Special Tests Other- 1 Test Results Neg Gaenlen's Slump Test Results negative Straight Leg Raise Test Results negative Compression Test Results negative PT-OP-M Strength Start: 07/27/18 08:34 Freq: Status: Active Protocol: Document 07/26/18 17:30 EA (Rec: 07/27/18 09:34 EA [id number]) Hip Strength Hip Manual Muscle Testing Right Reason Not Measured WFL Left Reason Not Measured WFL PT-OP-Q Treatments Start: 07/27/18 08:34 Freq: Status: Active Protocol: Document 12/29/18 16:04 [facility] (Rec: 12/29/18 18:48 [facility] [id number]) Manual Therapy Treatment Soft Tissue Mobilization L hip Flexors Body Location L hip Flexors Mobilization Type Cross-Friction Rolling Trigger Point Release Intensity/Depth Moderate Body Position Supine 3 Body Location adductors L Mobilization Type Cross-Friction Myofascial Release Rolling Intensity/Depth Moderate Body Position Supine Self-Care/Home Management Treatment Education Other Education Edu on anatomy of shoulder & importance of treating shoulder with PT at this time and not waiting. Discussed modalities and manual and light exercise for PT PT-OP-R Modalities Start: 07/27/18 08:34 Freq: Status: Active Protocol: Document 12/29/18 16:04 [facility] (Rec: 12/29/18 18:48 [facility] [id number]) Electric Stimulation Electric Stimulation Interferential Current (IFC) Body Location L shoulder/brachium Duration (Minutes) 7 Intensity 12 Combined With Heat/Cold Cold Pack Comments and MHP on lumbar spine & L hip flexor- will need change in placement of pads PT-OP-T Assessment and Plan Start: 07/27/18 08:34 Freq: Status: Active Protocol: Document 12/29/18 16:04 [facility] (Rec: 12/29/18 16:48 [facility] [id number]) Physical Therapy Assessment Goals shoulder Inspector Packager Goal (LTG) Pt will have full AROM in order to allow pt to do typical daily activities without inc pain. LTG Duration 02/28/19 Four Impairment No HEP in place [facility] Goal (LTG) Patient will exhibit independent safe home exercise program LTG Duration achieved progressing as tolerated Three Impairment Impaired sitting tolerance with less than 10 mins [facility] Goal (LTG) Patient will sit more than 1 hour with no increase in symptoms 12/29-15 min LTG Duration 4 wks Two Impairment Impaired Lumbosacral ROM [facility] Goal (LTG) Patient will exhibits near functional range lumbosacral ROM to enhance functional mobility without limitation LTG Duration 4 wks One Impairment Oswetry low back impairement scale of 34/50 [facility] Goal (LTG) Patient will have Oswetry low back impairment scale of < 15/ 50 LTG Duration 4 wks Assessment Summary Assessment Pt has pain in L shoulder after fall. No significant testing d/t pt having high level of pain and fear of moving and doing a lot of activity with shoulder d/t pain. She is limited in lifitng, reaching and typical activties d/t this pain.She has even stopped wearing her watch on L arm because it bothers her shoulder too much. She is significantly limited in her ROM, strength and activity tolerance and would benefit from skilled PT in order to dec pain and improve functional ability. Pt was unable to tolerate estim today d/t feeling like it was a sharp pain part way through so she stopped the stim. Physical Therapy Plan Frequency and Duration Frequency of Treatment 1-2x/week Duration of Treatment 2 month Plan of Care Start Date 12/29/18 Plan of Care End Date 02/28/19 Therapeutic Interventions Therapeutic Interventions Aquatic Therapy Balance Training Gait Training Home Exercise Program Joint Mobilizations Manual Therapy Neuromuscular Re-education Patient/Caregiver Education Self-Care/Home Management Soft Tissue Mobilization Taping Therapeutic Activities Therapeutic Exercises Modalities Cold Pack/Ice Massage Electric Stimulation Hot Packs Infrared Therapy Iontophoresis Traction- Mechanical Ultrasound Next Visit Focus/Plan Next Note Type Treatment Note Next Visit Plan work on pelvic girdle patterns & hip flexor as needed & work on STM very gently at shoulder; US to L shoulder.
--- NOTE | 2018-12-29 18:48 | PT.OPPOC ---
Current Diagnoses Low back pain (12/29/18) Provider Visit Care Team Role Provider Type Tiny Henderson MD Family Provider Physician Primary Care Provider Specialty: Family Practice Address: [address] [place], [address] Email: [email or web address] JONNY Ospina Attending Provider Advanced Director Of Product Management Specialty: Medical Address: [address], [address] Email: Plan Of Care PT-OP-T Assessment and Plan Start: 07/27/18 08:34 Freq: Status: Active Protocol: Document 12/29/18 16:04 [facility] (Rec: 12/29/18 16:48 [facility] [id number]) Physical Therapy Assessment Goals shoulder Dean Of Men Goal (LTG) Pt will have full AROM in order to allow pt to do typical daily activities without inc pain. LTG Duration 02/28/19 Four Impairment No HEP in place Dean Of Men Goal (LTG) Patient will exhibit independent safe home exercise program LTG Duration achieved progressing as tolerated Three Impairment Impaired sitting tolerance with less than 10 mins [facility] Goal (LTG) Patient will sit more than 1 hour with no increase in symptoms 12/29-15 min LTG Duration 4 wks Two Impairment Impaired Lumbosacral ROM Dean Of Men Goal (LTG) Patient will exhibits near functional range lumbosacral ROM to enhance functional mobility without limitation LTG Duration 4 wks One Impairment Oswetry low back impairement scale of 34/50 Dean Of Men Goal (LTG) Patient will have Oswetry low back impairment scale of < 15/ 50 LTG Duration 4 wks Assessment Summary Assessment Pt has pain in L shoulder after fall. No significant testing d/t pt having high level of pain and fear of moving and doing a lot of activity with shoulder d/t pain. She is limited in lifitng, reaching and typical activties d/t this pain.She has even stopped wearing her watch on L arm because it bothers her shoulder too much. She is significantly limited in her ROM, strength and activity tolerance and would benefit from skilled PT in order to dec pain and improve functional ability. Pt was unable to tolerate estim today d/t feeling like it was a sharp pain part way through so she stopped the stim. Physical Therapy Plan Frequency and Duration Frequency of Treatment 1-2x/week Duration of Treatment 2 month Plan of Care Start Date 12/29/18 Plan of Care End Date 02/28/19 Therapeutic Interventions Therapeutic Interventions Aquatic Therapy Balance Training Gait Training Home Exercise Program Joint Mobilizations Manual Therapy Neuromuscular Re-education Patient/Caregiver Education Self-Care/Home Management Soft Tissue Mobilization Taping Therapeutic Activities Therapeutic Exercises Modalities Cold Pack/Ice Massage Electric Stimulation Hot Packs Infrared Therapy Iontophoresis Traction- Mechanical Ultrasound Next Visit Focus/Plan Next Note Type Treatment Note Next Visit Plan work on pelvic girdle patterns & hip flexor as needed & work on STM very gently at shoulder; US to L shoulder. Plan of Care Dates Plan of Care Start Date 12/29/18 Plan of Care End Date 02/28/19 Please Sign and Return: I have reviewed this Plan of Care and certify that the skilled therapy services above are required to meet the patient?s needs. Physician Signature Date Printed Name and Credentials Clinical Instructor Signature Printed Name and Credentials
--- NOTE | 2018-12-31 11:19 | PT.OTN ---
Current Diagnoses Low back pain (12/31/18) Physical Therapy Treatment Note PT-OP-A Visit Information Start: 07/27/18 08:34 Freq: Status: Active Protocol: Document 12/31/18 11:06 (Rec: 12/31/18 11:18 [facility] [email or web address]) Out-Patient Physical Therapy Visit Information Visit Information Visit Type Treatment Note Visit Start Time 08:15 Visit Stop Time 09:01 Total Visit Minutes 46 Visit Number 34 Number of PYRIDINE OPERATOR Visits 1 PT-OP-B Current Condition Start: 07/27/18 08:34 Freq: Status: Active Protocol: Document 12/29/18 16:04 [facility] (Rec: 12/29/18 16:48 [facility] [id number]) Current Condition History of Current Condition Current Complaints LBP & L hip pain; L shoulder History of Current Condition Pt had a fall when skating about a month ago where she hurt her shoulder but it started feeling better. She reports it dislocated and she self relocated it. She cannot sleep on it independtly. Pt reports about 1.5-2 weeks ago and she got a CT and they injected into her shoulder and since then its been worse. Pt report it is like a tooth ache. She does heat every night and has trouble sleeping . Pt reports her back has been doing better but gives out every day at 4pm and she has to lay down on a hard surface to relieve pain. Ant L hip pain is improving. Pt reports some days she is even waking up and her back is feeling good. Pt reports when something stressful happens, pain increases. Prior Treatments and Tests 1. Degenerative joint disease, moderate in glenohumeral joint and mild in acromioclavicular joint. 2. A 3mm intra-articular body in the anteroinferior glenohumeral joint. 3. The inferior glenoid appears irregular suspicious for labral tear. 4. Superior migration of humeral head suspicious for chronic rotator cuff tendon tear Per CT scan Treatment Goals Patient/Caregiver Goals return to typical activity PT-OP-C Subjective Start: 07/27/18 08:34 Freq: Status: Active Protocol: Document 12/31/18 11:06 [facility] (Rec: 12/31/18 11:18 [facility] [email or web address]) OP-PT Subjective Patient Comments Patient Comments Pt reports continued shoulder pain, feels like she does not want to move it at all, but knows she needs to. PT-OP-G Mobility & Gait Start: 07/27/18 08:34 Freq: Status: Active Protocol: Document 07/26/18 17:30 EA (Rec: 07/27/18 09:34 EA [id number]) OP Gait Assessment Comments Gait Comments No gait deviation noted Stair Climbing Evaluation Comments Stair Climbing Comments No stairs difficulty PT-OP-J Posture/Palpation/Skin Start: 07/27/18 08:34 Freq: Status: Active Protocol: Document 07/26/18 17:30 EA (Rec: 07/27/18 09:34 EA [id number]) Posture Evaluation Comments Posture Comments Good general posture with slight increased in lumbar lordosis Palpation Assessment Location One Palpation Location Both paralumbars, QL Palpation Findings Soft Tissue Tightness Muscle Guarding Tenderness Skin Assessment Other Assessments Skin Assessment Comments Palpable electronic device placed to R upper gluteal area PT-OP-K Range of Motion Start: 07/27/18 08:34 Freq: Status: Active Protocol: Document 12/29/18 16:04 [facility] (Rec: 12/29/18 16:48 [facility] [id number]) Shoulder Goniometric Range of Motion Shoulder Right Active Flexion 150 Abduction 167 External Rotation at 0 degrees Abduction 60 Internal Rotation Behind Back (text) T7 Left Active Flexion 62 Abduction 43 External Rotation at 0 degrees Abduction 29 Internal Rotation Behind Back (text) L buttock distal PT-OP-L Special Tests Start: 07/27/18 08:34 Freq: Status: Active Protocol: Document 07/26/18 17:30 EA (Rec: 07/27/18 09:34 EA [id number]) Special Tests Lumbar Spine Special Tests Other- 1 Test Results Neg Gaenlen's Slump Test Results negative Straight Leg Raise Test Results negative Compression Test Results negative PT-OP-M Strength Start: 07/27/18 08:34 Freq: Status: Active Protocol: Document 07/26/18 17:30 EA (Rec: 07/27/18 09:34 EA [id number]) Hip Strength Hip Manual Muscle Testing Right Reason Not Measured WFL Left Reason Not Measured WFL PT-OP-Q Treatments Start: 07/27/18 08:34 Freq: Status: Active Protocol: Document 12/31/18 11:06 [facility] (Rec: 12/31/18 11:18 SA [email or web address]) Therapeutic Exercises Sitting Exercises Pulleys Sitting Exercise Name Flexion and Scaption Side bilateral Reps/Minutes 2 min each Cervical Sitting Exercise Name seated on ball cervical neck stretching Side bilateral Reps/Minutes 3 min Standing Exercises Pendulums Side left Reps/Minutes 2 min Wall slides Standing Exercise Name L shoulder Side left Reps/Minutes 3 min Manual Therapy Treatment Soft Tissue Mobilization STM L UT/scalenes,lateral shld Body Location L shoulder/UTs Mobilization Type Myofascial Release Rolling Sustained Pressure Intensity/Depth Superficial Body Position Hooklying Comments Pt tender Self-Care/Home Management Treatment Education Patient Education Home Exercise Program Pain Management Other Education Education for upper body dressing, using heat/cold for pain managment and importance of movement to avoid loss of shoulder motion. PT-OP-R Modalities Start: 07/27/18 08:34 Freq: Status: Active Protocol: Document 12/31/18 11:06 (Rec: 12/31/18 11:18 [email or web address]) Hot Pack/Cold Pack Treatment Cold Pack Location left shoulder Patient Position Supine Treatment Duration (minutes) 3 Comments attempted but poor tolerance PT-OP-T Assessment and Plan Start: 07/27/18 08:34 Freq: Status: Active Protocol: Document 12/31/18 11:06 (Rec: 12/31/18 11:18 [email or web address]) Physical Therapy Assessment Assessment Summary Assessment Pt with continued L shoulder pain, did not tolerant E-stim, heat of CP. Gentle STM and ROM exercises completed, education for HEP and ADL performance. Physical Therapy Plan Next Visit Focus/Plan Next Note Type Treatment Note Next Visit Plan Progress ROM exercise, manual therapy and modalities as tolerated.
--- NOTE | 2019-01-12 16:42 | PT.OTN ---
Current Diagnoses Low back pain (01/12/19) Physical Therapy Treatment Note PT-OP-A Visit Information Start: 07/27/18 08:34 Freq: Status: Active Protocol: Document 01/12/19 13:01 [facility] (Rec: 01/12/19 16:42 [facility] [id number]) Out-Patient Physical Therapy Visit Information Visit Information Visit Type Treatment Note Visit Start Time 13:00 Visit Stop Time 13:40 Total Visit Minutes 40 Visit Number 35 Number of MAINTENANCE WELDER Visits 0 PT-OP-B Current Condition Start: 07/27/18 08:34 Freq: Status: Active Protocol: Document 12/29/18 16:04 [facility] (Rec: 12/29/18 16:48 [facility] [id number]) Current Condition History of Current Condition Current Complaints LBP & L hip pain; L shoulder History of Current Condition Pt had a fall when skating about a month ago where she hurt her shoulder but it started feeling better. She reports it dislocated and she self relocated it. She cannot sleep on it independtly. Pt reports about 1.5-2 weeks ago and she got a CT and they injected into her shoulder and since then its been worse. Pt report it is like a tooth ache. She does heat every night and has trouble sleeping . Pt reports her back has been doing better but gives out every day at 4pm and she has to lay down on a hard surface to relieve pain. Ant L hip pain is improving. Pt reports some days she is even waking up and her back is feeling good. Pt reports when something stressful happens, pain increases. Prior Treatments and Tests 1. Degenerative joint disease, moderate in glenohumeral joint and mild in acromioclavicular joint. 2. A 3mm intra-articular body in the anteroinferior glenohumeral joint. 3. The inferior glenoid appears irregular suspicious for labral tear. 4. Superior migration of humeral head suspicious for chronic rotator cuff tendon tear Per CT scan Treatment Goals Patient/Caregiver Goals return to typical activity PT-OP-C Subjective Start: 07/27/18 08:34 Freq: Status: Active Protocol: Document 01/12/19 13:01 [facility] (Rec: 01/12/19 16:42 [facility] [id number]) OP-PT Subjective Patient Comments Patient Comments Pt reports working on wall crawls and lifting her arm PT-OP-G Mobility & Gait Start: 07/27/18 08:34 Freq: Status: Active Protocol: Document 07/26/18 17:30 EA (Rec: 07/27/18 09:34 EA [id number]) OP Gait Assessment Comments Gait Comments No gait deviation noted Stair Climbing Evaluation Comments Stair Climbing Comments No stairs difficulty PT-OP-J Posture/Palpation/Skin Start: 07/27/18 08:34 Freq: Status: Active Protocol: Document 07/26/18 17:30 EA (Rec: 07/27/18 09:34 EA [id number]) Posture Evaluation Comments Posture Comments Good general posture with slight increased in lumbar lordosis Palpation Assessment Location One Palpation Location Both paralumbars, QL Palpation Findings Soft Tissue Tightness Muscle Guarding Tenderness Skin Assessment Other Assessments Skin Assessment Comments Palpable electronic device placed to R upper gluteal area PT-OP-K Range of Motion Start: 07/27/18 08:34 Freq: Status: Active Protocol: Document 12/29/18 16:04 [facility] (Rec: 12/29/18 16:48 [facility] [id number]) Shoulder Goniometric Range of Motion Shoulder Right Active Flexion 150 Abduction 167 External Rotation at 0 degrees Abduction 60 Internal Rotation Behind Back (text) T7 Left Active Flexion 62 Abduction 43 External Rotation at 0 degrees Abduction 29 Internal Rotation Behind Back (text) L buttock distal PT-OP-L Special Tests Start: 07/27/18 08:34 Freq: Status: Active Protocol: Document 07/26/18 17:30 EA (Rec: 07/27/18 09:34 EA [id number]) Special Tests Lumbar Spine Special Tests Other- 1 Test Results Neg Gaenlen's Slump Test Results negative Straight Leg Raise Test Results negative Compression Test Results negative PT-OP-M Strength Start: 07/27/18 08:34 Freq: Status: Active Protocol: Document 07/26/18 17:30 EA (Rec: 07/27/18 09:34 EA [id number]) Hip Strength Hip Manual Muscle Testing Right Reason Not Measured WFL Left Reason Not Measured WFL PT-OP-Q Treatments Start: 07/27/18 08:34 Freq: Status: Active Protocol: Document 01/12/19 13:01 [facility] (Rec: 01/12/19 16:42 [facility] [id number]) Therapeutic Exercises Supine Exercises 11 Supine Exercise Name flex AAROM tbar Reps/Minutes 10 10 Supine Exercise Name 45/90 deg ER tbar AAROM Reps/Minutes 10 9 Supine Exercise Name ER of hip with pillows propped Reps/Minutes 30 sec Comments tried without pillows and was painful, attempted figure 4 b ut no stretch Sitting Exercises 3 Sitting Exercise Name UT stretch L Reps/Minutes 30 sec Standing Exercises 7 Standing Exercise Name hip add stretch Comments unable to achieve stretch in appropriate location Therapeutic Activity Therapeutic Activity 3 Name s/l sleep position Manual Therapy Treatment Soft Tissue Mobilization STM L UT/scalenes,lateral shld Body Location L shoulder/UTs Mobilization Type Myofascial Release Rolling Sustained Pressure Intensity/Depth Superficial Body Position Hooklying Comments Pt tender to paplation Joint Mobilizations 3 Joint L GH Direction post Grade I PT-OP-R Modalities Start: 07/27/18 08:34 Freq: Status: Active Protocol: Document 12/31/18 11:06 [facility] (Rec: 12/31/18 11:18 [facility] [id number]) Hot Pack/Cold Pack Treatment Cold Pack Location left shoulder Patient Position Supine Treatment Duration (minutes) 3 Comments attempted but poor tolerance PT-OP-T Assessment and Plan Start: 07/27/18 08:34 Freq: Status: Active Protocol: Document 01/12/19 13:01 [facility] (Rec: 01/12/19 16:42 [facility] [id number]) Physical Therapy Assessment Goals shoulder Snf Goal (LTG) Pt will have full AROM in order to allow pt to do typical daily activities without inc pain. LTG Duration 02/28/19 Four Impairment No HEP in place Medical Billing Coordinator Goal (LTG) Patient will exhibit independent safe home exercise program LTG Duration achieved progressing as tolerated Three Impairment Impaired sitting tolerance with less than 10 mins Snf Goal (LTG) Patient will sit more than 1 hour with no increase in symptoms 12/29-15 min LTG Duration 4 wks Two Impairment Impaired Lumbosacral ROM Medical Billing Coordinator Goal (LTG) Patient will exhibits near functional range lumbosacral ROM to enhance functional mobility without limitation LTG Duration 4 wks One Impairment Oswetry low back impairement scale of 34/50 Medical Billing Coordinator Goal (LTG) Patient will have Oswetry low back impairment scale of < 15/ 50 LTG Duration 4 wks Assessment Summary Assessment Pt is elevated in L first rib but does have significant tenderness in that region along with soft tissue tightness so manual treatment was focused on soft tissue mobility today. Pt has improvement in ROM today and was able to tolerate AAROM Physical Therapy Plan Frequency and Duration Frequency of Treatment 1-2x/week Duration of Treatment 2 month Plan of Care Start Date 12/29/18 Plan of Care End Date 02/28/19 Next Visit Focus/Plan Next Note Type Treatment Note Next Visit Plan progress AAROM and AROm as patient tolerates for L shoulder, GH mobs if pt tolerates, 1st rib L mobs
--- NOTE | 2019-01-17 10:15 | PT.OTN ---
Current Diagnoses Low back pain (01/19/19) Physical Therapy Treatment Note PT-OP-A Visit Information Start: 07/27/18 08:34 Freq: Status: Active Protocol: Document 01/17/19 10:15 [facility] (Rec: 01/19/19 13:49 [facility] [id number]) Out-Patient Physical Therapy Visit Information Visit Information Visit Type Treatment Note Visit Start Time 10:15 Visit Stop Time 11:05 Total Visit Minutes 50 Visit Number 36 Number of MORTGAGE LOAN ASSISTANT Visits 0 PT-OP-B Current Condition Start: 07/27/18 08:34 Freq: Status: Active Protocol: Document 12/29/18 16:04 [facility] (Rec: 12/29/18 16:48 [facility] [id number]) Current Condition History of Current Condition Current Complaints LBP & L hip pain; L shoulder History of Current Condition Pt had a fall when skating about a month ago where she hurt her shoulder but it started feeling better. She reports it dislocated and she self relocated it. She cannot sleep on it independtly. Pt reports about 1.5-2 weeks ago and she got a CT and they injected into her shoulder and since then its been worse. Pt report it is like a tooth ache. She does heat every night and has trouble sleeping . Pt reports her back has been doing better but gives out every day at 4pm and she has to lay down on a hard surface to relieve pain. Ant L hip pain is improving. Pt reports some days she is even waking up and her back is feeling good. Pt reports when something stressful happens, pain increases. Prior Treatments and Tests 1. Degenerative joint disease, moderate in glenohumeral joint and mild in acromioclavicular joint. 2. A 3mm intra-articular body in the anteroinferior glenohumeral joint. 3. The inferior glenoid appears irregular suspicious for labral tear. 4. Superior migration of humeral head suspicious for chronic rotator cuff tendon tear Per CT scan Treatment Goals Patient/Caregiver Goals return to typical activity PT-OP-C Subjective Start: 07/27/18 08:34 Freq: Status: Active Protocol: Document 01/17/19 10:15 [facility] (Rec: 01/19/19 13:49 [facility] [id number]) OP-PT Subjective Patient Comments Patient Comments States her shoulder is really hurting her, not tolerating use, fair compliance to HEP. PT-OP-G Mobility & Gait Start: 07/27/18 08:34 Freq: Status: Active Protocol: Document 07/26/18 17:30 EA (Rec: 07/27/18 09:34 EA [id number]) OP Gait Assessment Comments Gait Comments No gait deviation noted Stair Climbing Evaluation Comments Stair Climbing Comments No stairs difficulty PT-OP-J Posture/Palpation/Skin Start: 07/27/18 08:34 Freq: Status: Active Protocol: Document 07/26/18 17:30 EA (Rec: 07/27/18 09:34 EA [id number]) Posture Evaluation Comments Posture Comments Good general posture with slight increased in lumbar lordosis Palpation Assessment Location One Palpation Location Both paralumbars, QL Palpation Findings Soft Tissue Tightness Muscle Guarding Tenderness Skin Assessment Other Assessments Skin Assessment Comments Palpable electronic device placed to R upper gluteal area PT-OP-K Range of Motion Start: 07/27/18 08:34 Freq: Status: Active Protocol: Document 12/29/18 16:04 [facility] (Rec: 12/29/18 16:48 [facility] [id number]) Shoulder Goniometric Range of Motion Shoulder Right Active Flexion 150 Abduction 167 External Rotation at 0 degrees Abduction 60 Internal Rotation Behind Back (text) T7 Left Active Flexion 62 Abduction 43 External Rotation at 0 degrees Abduction 29 Internal Rotation Behind Back (text) L buttock distal PT-OP-L Special Tests Start: 07/27/18 08:34 Freq: Status: Active Protocol: Document 07/26/18 17:30 EA (Rec: 07/27/18 09:34 EA [id number]) Special Tests Lumbar Spine Special Tests Other- 1 Test Results Neg Gaenlen's Slump Test Results negative Straight Leg Raise Test Results negative Compression Test Results negative PT-OP-M Strength Start: 07/27/18 08:34 Freq: Status: Active Protocol: Document 07/26/18 17:30 EA (Rec: 07/27/18 09:34 EA [id number]) Hip Strength Hip Manual Muscle Testing Right Reason Not Measured WFL Left Reason Not Measured WFL PT-OP-Q Treatments Start: 07/27/18 08:34 Freq: Status: Active Protocol: Document 01/17/19 10:15 [facility] (Rec: 01/19/19 13:49 [facility] [id number]) Therapeutic Exercises Supine Exercises 11 Supine Exercise Name flex AAROM tbar Reps/Minutes 10 10 Supine Exercise Name 45/90 deg ER tbar AAROM Reps/Minutes 10 pelvic tilt Supine Exercise Name pelvic tilts Reps/Minutes x 10 Sitting Exercises 3 Sitting Exercise Name UT stretch L Reps/Minutes 30 sec Manual Therapy Treatment Soft Tissue Mobilization STM L UT/scalenes,lateral shld Body Location L shoulder/UTs Mobilization Type Myofascial Release Rolling Sustained Pressure Intensity/Depth Superficial Body Position Hooklying Comments Pt tender to paplation Joint Mobilizations first rib Direction inf Grade II Body Position Hooklying 3 Joint L GH Direction post Grade II PT-OP-R Modalities Start: 07/27/18 08:34 Freq: Status: Active Protocol: Document 01/17/19 10:15 [facility] (Rec: 01/19/19 13:51 [facility] [id number]) Hot Pack/Cold Pack Treatment Hot Pack Location L hip Flexors and lumbar spine Patient Position Supine Treatment Duration (minutes) 5 Patient Tolerance Poor Comments at end of treatment Cold Pack Location left shoulder Patient Position Supine Treatment Duration (minutes) 5 Comments attempted with increased layer of towel but poor tolerance PT-OP-T Assessment and Plan Start: 07/27/18 08:34 Freq: Status: Active Protocol: Document 01/17/19 10:15 [facility] (Rec: 01/19/19 13:49 [facility] [id number]) Physical Therapy Assessment Goals shoulder Fpc Goal (LTG) Pt will have full AROM in order to allow pt to do typical daily activities without inc pain. LTG Duration 02/28/19 Four Impairment No HEP in place Fpc Goal (LTG) Patient will exhibit independent safe home exercise program LTG Duration achieved progressing as tolerated Three Impairment Impaired sitting tolerance with less than 10 mins Wood Carving Lathe Operator Goal (LTG) Patient will sit more than 1 hour with no increase in symptoms 12/29-15 min LTG Duration 4 wks Two Impairment Impaired Lumbosacral ROM Fpc Goal (LTG) Patient will exhibits near functional range lumbosacral ROM to enhance functional mobility without limitation LTG Duration 4 wks One Impairment Oswetry low back impairement scale of 34/50 Wood Carving Lathe Operator Goal (LTG) Patient will have Oswetry low back impairment scale of < 15/ 50 LTG Duration 4 wks Assessment Summary Assessment Decreased elevation of first rib after mobilization, patient tolerated soft tissue mobilition well, but discontinued MH and ice due to too much, overwhelming. Physical Therapy Plan Frequency and Duration Frequency of Treatment 1-2x/week Duration of Treatment 2 month Plan of Care Start Date 12/29/18 Plan of Care End Date 02/28/19 Next Visit Focus/Plan Next Note Type Treatment Note Next Visit Plan progress AAROM and AROm as patient tolerates for L shoulder, GH mobs if pt tolerates, 1st rib L mobs
--- NOTE | 2019-01-19 15:41 | PT.OTN ---
Current Diagnoses Low back pain (01/19/19) Physical Therapy Treatment Note PT-OP-A Visit Information Start: 07/27/18 08:34 Freq: Status: Active Protocol: Document 01/19/19 15:22 [facility] (Rec: 01/19/19 15:41 [facility] [id number]) Out-Patient Physical Therapy Visit Information Visit Information Visit Type Treatment Note Visit Start Time 13:53 Visit Stop Time 14:31 Total Visit Minutes 38 Visit Number 37 Number of MILITARY SOURCE OPERATIONS OFFICER Visits 0 PT-OP-B Current Condition Start: 07/27/18 08:34 Freq: Status: Active Protocol: Document 12/29/18 16:04 [facility] (Rec: 12/29/18 16:48 [facility] [id number]) Current Condition History of Current Condition Current Complaints LBP & L hip pain; L shoulder History of Current Condition Pt had a fall when skating about a month ago where she hurt her shoulder but it started feeling better. She reports it dislocated and she self relocated it. She cannot sleep on it independtly. Pt reports about 1.5-2 weeks ago and she got a CT and they injected into her shoulder and since then its been worse. Pt report it is like a tooth ache. She does heat every night and has trouble sleeping . Pt reports her back has been doing better but gives out every day at 4pm and she has to lay down on a hard surface to relieve pain. Ant L hip pain is improving. Pt reports some days she is even waking up and her back is feeling good. Pt reports when something stressful happens, pain increases. Prior Treatments and Tests 1. Degenerative joint disease, moderate in glenohumeral joint and mild in acromioclavicular joint. 2. A 3mm intra-articular body in the anteroinferior glenohumeral joint. 3. The inferior glenoid appears irregular suspicious for labral tear. 4. Superior migration of humeral head suspicious for chronic rotator cuff tendon tear Per CT scan Treatment Goals Patient/Caregiver Goals return to typical activity PT-OP-C Subjective Start: 07/27/18 08:34 Freq: Status: Active Protocol: Document 01/19/19 15:22 [facility] (Rec: 01/19/19 15:41 [facility] [id number]) OP-PT Subjective Patient Comments Patient Comments Pt reports compliance with exercises. PT-OP-G Mobility & Gait Start: 07/27/18 08:34 Freq: Status: Active Protocol: Document 07/26/18 17:30 EA (Rec: 07/27/18 09:34 EA [id number]) OP Gait Assessment Comments Gait Comments No gait deviation noted Stair Climbing Evaluation Comments Stair Climbing Comments No stairs difficulty PT-OP-J Posture/Palpation/Skin Start: 07/27/18 08:34 Freq: Status: Active Protocol: Document 07/26/18 17:30 EA (Rec: 07/27/18 09:34 EA [id number]) Posture Evaluation Comments Posture Comments Good general posture with slight increased in lumbar lordosis Palpation Assessment Location One Palpation Location Both paralumbars, QL Palpation Findings Soft Tissue Tightness Muscle Guarding Tenderness Skin Assessment Other Assessments Skin Assessment Comments Palpable electronic device placed to R upper gluteal area PT-OP-K Range of Motion Start: 07/27/18 08:34 Freq: Status: Active Protocol: Document 12/29/18 16:04 [facility] (Rec: 12/29/18 16:48 [facility] [id number]) Shoulder Goniometric Range of Motion Shoulder Right Active Flexion 150 Abduction 167 External Rotation at 0 degrees Abduction 60 Internal Rotation Behind Back (text) T7 Left Active Flexion 62 Abduction 43 External Rotation at 0 degrees Abduction 29 Internal Rotation Behind Back (text) L buttock distal PT-OP-L Special Tests Start: 07/27/18 08:34 Freq: Status: Active Protocol: Document 07/26/18 17:30 EA (Rec: 07/27/18 09:34 EA [id number]) Special Tests Lumbar Spine Special Tests Other- 1 Test Results Neg Gaenlen's Slump Test Results negative Straight Leg Raise Test Results negative Compression Test Results negative PT-OP-M Strength Start: 07/27/18 08:34 Freq: Status: Active Protocol: Document 07/26/18 17:30 EA (Rec: 07/27/18 09:34 EA [id number]) Hip Strength Hip Manual Muscle Testing Right Reason Not Measured WFL Left Reason Not Measured WFL PT-OP-Q Treatments Start: 07/27/18 08:34 Freq: Status: Active Protocol: Document 01/19/19 15:22 [facility] (Rec: 01/19/19 15:41 [facility] [id number]) Therapeutic Exercises Prone Exercises row Prone Exercise Name scap retraction Side bilateral Reps/Minutes 15 Sidelying Exercises 2 Sidelying Exercise Name ER shoulder Side left Reps/Minutes 15 Standing Exercises 7 Standing Exercise Name rows & shoulder ext Side bilateral Equipment Used L1 Reps/Minutes 2x10 ea Comments focus on scap retraction & deprssion Manual Therapy Treatment Soft Tissue Mobilization STM L UT/scalenes,lateral shld Body Location L shoulder/UTs Mobilization Type Myofascial Release Rolling Sustained Pressure Intensity/Depth Superficial Body Position Hooklying Comments Pt tender to paplation 3 Body Location biceps L Mobilization Type Rolling Intensity/Depth Superficial 2 Body Location pec Mobilization Type Rolling Intensity/Depth Superficial Joint Mobilizations 3 Joint L GH Direction post & distraction Grade II Body Position Hooklying PT-OP-R Modalities Start: 07/27/18 08:34 Freq: Status: Active Protocol: Document 01/17/19 10:15 [facility] (Rec: 01/19/19 13:51 [facility] [id number]) Hot Pack/Cold Pack Treatment Hot Pack Location L hip Flexors and lumbar spine Patient Position Supine Treatment Duration (minutes) 5 Patient Tolerance Poor Comments at end of treatment Cold Pack Location left shoulder Patient Position Supine Treatment Duration (minutes) 5 Comments attempted with increased layer of towel but poor tolerance PT-OP-T Assessment and Plan Start: 07/27/18 08:34 Freq: Status: Active Protocol: Document 01/19/19 15:22 [facility] (Rec: 01/19/19 15:41 [facility] [id number]) Physical Therapy Assessment Goals shoulder Nursing Home Goal (LTG) Pt will have full AROM in order to allow pt to do typical daily activities without inc pain. LTG Duration 02/28/19 Four Impairment No HEP in place Nursing Home Goal (LTG) Patient will exhibit independent safe home exercise program LTG Duration achieved progressing as tolerated Three Impairment Impaired sitting tolerance with less than 10 mins Mobile Engineer Goal (LTG) Patient will sit more than 1 hour with no increase in symptoms 12/29-15 min LTG Duration 4 wks Two Impairment Impaired Lumbosacral ROM Mobile Engineer Goal (LTG) Patient will exhibits near functional range lumbosacral ROM to enhance functional mobility without limitation LTG Duration 4 wks One Impairment Oswetry low back impairement scale of 34/50 Nursing Home Goal (LTG) Patient will have Oswetry low back impairment scale of < 15/ 50 LTG Duration 4 wks Assessment Summary Assessment Pt able to tolerate some strengthening today and AROM exercises. She was encouraged with the fact that this is a progression form AAROM exercises. Sshe has significant tightness in pecs, biceps and UT. Physical Therapy Plan Frequency and Duration Frequency of Treatment 1-2x/week Duration of Treatment 2 month Plan of Care Start Date 12/29/18 Plan of Care End Date 02/28/19 Next Visit Focus/Plan Next Note Type Treatment Note Next Visit Plan Progress AROM and work on good scapular positioning: If tolerated try serratus punches , GH & AC mobs & STM for ROM and dec pain
--- NOTE | 2019-01-26 15:20 | PT.OTN ---
Current Diagnoses Low back pain (01/26/19) Physical Therapy Treatment Note PT-OP-A Visit Information Start: 07/27/18 08:34 Freq: Status: Active Protocol: Document 01/26/19 15:14 SA (Rec: 01/26/19 15:20 SA [id number]) Out-Patient Physical Therapy Visit Information Visit Information Visit Type Treatment Note Visit Start Time 13:00 Visit Stop Time 13:45 Total Visit Minutes 45 Visit Number 38 Number of DATABASE ADMINISTRATION MANAGER Visits 1 PT-OP-B Current Condition Start: 07/27/18 08:34 Freq: Status: Active Protocol: Document 12/29/18 16:04 [facility] (Rec: 12/29/18 16:48 [facility] [id number]) Current Condition History of Current Condition Current Complaints LBP & L hip pain; L shoulder History of Current Condition Pt had a fall when skating about a month ago where she hurt her shoulder but it started feeling better. She reports it dislocated and she self relocated it. She cannot sleep on it independtly. Pt reports about 1.5-2 weeks ago and she got a CT and they injected into her shoulder and since then its been worse. Pt report it is like a tooth ache. She does heat every night and has trouble sleeping . Pt reports her back has been doing better but gives out every day at 4pm and she has to lay down on a hard surface to relieve pain. Ant L hip pain is improving. Pt reports some days she is even waking up and her back is feeling good. Pt reports when something stressful happens, pain increases. Prior Treatments and Tests 1. Degenerative joint disease, moderate in glenohumeral joint and mild in acromioclavicular joint. 2. A 3mm intra-articular body in the anteroinferior glenohumeral joint. 3. The inferior glenoid appears irregular suspicious for labral tear. 4. 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 PT-OP-G Mobility & Gait Start: 07/27/18 08:34 Freq: Status: Active Protocol: Document 07/26/18 17:30 EA (Rec: 07/27/18 09:34 EA [id number]) OP Gait Assessment Comments Gait Comments No gait deviation noted Stair Climbing Evaluation Comments Stair Climbing Comments No stairs difficulty PT-OP-J Posture/Palpation/Skin Start: 07/27/18 08:34 Freq: Status: Active Protocol: Document 07/26/18 17:30 EA (Rec: 07/27/18 09:34 EA [id number]) Posture Evaluation Comments Posture Comments Good general posture with slight increased in lumbar lordosis Palpation Assessment Location One Palpation Location Both paralumbars, QL Palpation Findings Soft Tissue Tightness Muscle Guarding Tenderness Skin Assessment Other Assessments Skin Assessment Comments Palpable electronic device placed to R upper gluteal area PT-OP-K Range of Motion Start: 07/27/18 08:34 Freq: Status: Active Protocol: Document 12/29/18 16:04 [facility] (Rec: 12/29/18 16:48 [facility] [id number]) Shoulder Goniometric Range of Motion Shoulder Right Active Flexion 150 Abduction 167 External Rotation at 0 degrees Abduction 60 Internal Rotation Behind Back (text) T7 Left Active Flexion 62 Abduction 43 External Rotation at 0 degrees Abduction 29 Internal Rotation Behind Back (text) L buttock distal PT-OP-L Special Tests Start: 07/27/18 08:34 Freq: Status: Active Protocol: Document 07/26/18 17:30 EA (Rec: 07/27/18 09:34 EA [id number]) Special Tests Lumbar Spine Special Tests Other- 1 Test Results Neg Gaenlen's Slump Test Results negative Straight Leg Raise Test Results negative Compression Test Results negative PT-OP-M Strength Start: 07/27/18 08:34 Freq: Status: Active Protocol: Document 07/26/18 17:30 EA (Rec: 07/27/18 09:34 EA [id number]) Hip Strength Hip Manual Muscle Testing Right Reason Not Measured WFL Left Reason Not Measured WFL PT-OP-Q Treatments Start: 07/27/18 08:34 Freq: Status: Active Protocol: Document 01/26/19 15:14 SA (Rec: 01/26/19 15:20 SA [email or web address]) Therapeutic Exercises Sidelying Exercises 2 Sidelying Exercise Name ER shoulder Side left Reps/Minutes 15 Sitting Exercises Seated scapular squeezes Side bilateral Reps/Minutes 20x Cervical Sitting Exercise Name seated on ball cervical neck stretching Side bilateral Reps/Minutes 3 min Standing Exercises Wall slides Standing Exercise Name with dowel Side bilateral Reps/Minutes 20x 7 Standing Exercise Name rows & shoulder ext Side bilateral Equipment Used dowel Reps/Minutes 20x Comments focus on scap retraction & deprssion Manual Therapy Treatment Soft Tissue Mobilization STM L UT/scalenes,lateral shld Body Location L shoulder/UTs Mobilization Type Myofascial Release Rolling Sustained Pressure Intensity/Depth Superficial Body Position Hooklying Comments Pt tender to paplation 2 Body Location pec Mobilization Type Rolling Intensity/Depth Superficial PT-OP-R Modalities Start: 07/27/18 08:34 Freq: Status: Active Protocol: Document 01/17/19 10:15 [facility] (Rec: 01/19/19 13:51 [facility] [id number]) Hot Pack/Cold Pack Treatment Hot Pack Location L hip Flexors and lumbar spine Patient Position Supine Treatment Duration (minutes) 5 Patient Tolerance Poor Comments at end of treatment Cold Pack Location left shoulder Patient Position Supine Treatment Duration (minutes) 5 Comments attempted with increased layer of towel but poor tolerance PT-OP-T Assessment and Plan Start: 07/27/18 08:34 Freq: Status: Active Protocol: Document 01/26/19 15:14 SA (Rec: 01/26/19 15:20 SA [id number]) Physical Therapy Assessment Assessment Summary Assessment Pt tolerating shoulder strengthening and ROM exercises better. STM helpful for pain management. Physical Therapy Plan Next Visit Focus/Plan Next Note Type Treatment Note Next Visit Plan Progress AROM and work on good scapular positioning: If tolerated try serratus punches , GH & AC mobs & STM for ROM and dec pain
--- NOTE | 2019-02-02 14:30 | PT.OTN ---
Current Diagnoses Low back pain (02/02/19) Physical Therapy Treatment Note PT-OP-A Visit Information Start: 07/27/18 08:34 Freq: Status: Active Protocol: Document 02/02/19 12:58 [facility] (Rec: 02/02/19 14:29 [facility] [id number]) Out-Patient Physical Therapy Visit Information Visit Information Visit Type Treatment Note Visit Start Time 13:02 Visit Stop Time 13:55 Total Visit Minutes 53 Visit Number 39 Number of ALUM MIXER Visits 0 PT-OP-B Current Condition Start: 07/27/18 08:34 Freq: Status: Active Protocol: Document 12/29/18 16:04 [facility] (Rec: 12/29/18 16:48 [facility] [id number]) Current Condition History of Current Condition Current Complaints LBP & L hip pain; L shoulder History of Current Condition Pt had a fall when skating about a month ago where she hurt her shoulder but it started feeling better. She reports it dislocated and she self relocated it. She cannot sleep on it independtly. Pt reports about 1.5-2 weeks ago and she got a CT and they injected into her shoulder and since then its been worse. Pt report it is like a tooth ache. She does heat every night and has trouble sleeping . Pt reports her back has been doing better but gives out every day at 4pm and she has to lay down on a hard surface to relieve pain. Ant L hip pain is improving. Pt reports some days she is even waking up and her back is feeling good. Pt reports when something stressful happens, pain increases. Prior Treatments and Tests 1. Degenerative joint disease, moderate in glenohumeral joint and mild in acromioclavicular joint. 2. A 3mm intra-articular body in the anteroinferior glenohumeral joint. 3. The inferior glenoid appears irregular suspicious for labral tear. 4. Superior migration of humeral head suspicious for chronic rotator cuff tendon tear Per CT scan Treatment Goals Patient/Caregiver Goals return to typical activity PT-OP-C Subjective Start: 07/27/18 08:34 Freq: Status: Active Protocol: Document 02/02/19 12:58 [facility] (Rec: 02/02/19 14:29 [facility] [id number]) OP-PT Subjective Patient Comments Patient Comments Pt reports compliance with her HEP. Wants to go over HEP with this therapist PT-OP-G Mobility & Gait Start: 07/27/18 08:34 Freq: Status: Active Protocol: Document 07/26/18 17:30 EA (Rec: 07/27/18 09:34 EA [id number]) OP Gait Assessment Comments Gait Comments No gait deviation noted Stair Climbing Evaluation Comments Stair Climbing Comments No stairs difficulty PT-OP-J Posture/Palpation/Skin Start: 07/27/18 08:34 Freq: Status: Active Protocol: Document 07/26/18 17:30 EA (Rec: 07/27/18 09:34 EA [id number]) Posture Evaluation Comments Posture Comments Good general posture with slight increased in lumbar lordosis Palpation Assessment Location One Palpation Location Both paralumbars, QL Palpation Findings Soft Tissue Tightness Muscle Guarding Tenderness Skin Assessment Other Assessments Skin Assessment Comments Palpable electronic device placed to R upper gluteal area PT-OP-K Range of Motion Start: 07/27/18 08:34 Freq: Status: Active Protocol: Document 12/29/18 16:04 [facility] (Rec: 12/29/18 16:48 [facility] [id number]) Shoulder Goniometric Range of Motion Shoulder Right Active Flexion 150 Abduction 167 External Rotation at 0 degrees Abduction 60 Internal Rotation Behind Back (text) T7 Left Active Flexion 62 Abduction 43 External Rotation at 0 degrees Abduction 29 Internal Rotation Behind Back (text) L buttock distal PT-OP-L Special Tests Start: 07/27/18 08:34 Freq: Status: Active Protocol: Document 07/26/18 17:30 EA (Rec: 07/27/18 09:34 EA [id number]) Special Tests Lumbar Spine Special Tests Other- 1 Test Results Neg Gaenlen's Slump Test Results negative Straight Leg Raise Test Results negative Compression Test Results negative PT-OP-M Strength Start: 07/27/18 08:34 Freq: Status: Active Protocol: Document 07/26/18 17:30 EA (Rec: 07/27/18 09:34 EA [id number]) Hip Strength Hip Manual Muscle Testing Right Reason Not Measured WFL Left Reason Not Measured WFL PT-OP-Q Treatments Start: 07/27/18 08:34 Freq: Status: Active Protocol: Document 02/02/19 12:58 [facility] (Rec: 02/02/19 14:29 [facility] [id number]) Therapeutic Activity Therapeutic Activity 3 Name seated then standing posture progressed to walking with good posture Manual Therapy Treatment Soft Tissue Mobilization STM L UT/scalenes,lateral shld Body Location L shoulder/UTs Mobilization Type Myofascial Release Rolling Sustained Pressure Intensity/Depth Moderate Body Position Hooklying Comments Pt tender to paplation Self-Care/Home Management Treatment Education Other Education review of HEP with a couple reps of exercises; cueing given for core activiation throughout and for relaxation of UT & focus on scapular retraction with shoulder exercises PT-OP-R Modalities Start: 07/27/18 08:34 Freq: Status: Active Protocol: Document 02/02/19 12:58 [facility] (Rec: 02/02/19 14:29 [facility] [id number]) Hot Pack/Cold Pack Treatment Hot Pack Location L shoulder Patient Position Supine Treatment Duration (minutes) 10 PT-OP-T Assessment and Plan Start: 07/27/18 08:34 Freq: Status: Active Protocol: Document 02/02/19 12:58 [facility] (Rec: 02/02/19 14:29 [facility] [id number]) Physical Therapy Assessment Goals shoulder Nursing Home Goal (LTG) Pt will have full AROM in order to allow pt to do typical daily activities without inc pain. LTG Duration 02/28/19 Four Impairment No HEP in place Nursing Home Goal (LTG) Patient will exhibit independent safe home exercise program LTG Duration achieved progressing as tolerated Three Impairment Impaired sitting tolerance with less than 10 mins Coat Check Attendant Goal (LTG) Patient will sit more than 1 hour with no increase in symptoms 12/29-15 min LTG Duration 4 wks Two Impairment Impaired Lumbosacral ROM Nursing Home Goal (LTG) Patient will exhibits near functional range lumbosacral ROM to enhance functional mobility without limitation LTG Duration 4 wks One Impairment Oswetry low back impairement scale of 34/50 Nursing Home Goal (LTG) Patient will have Oswetry low back impairment scale of < 15/ 50 LTG Duration 4 wks Assessment Summary Assessment Pt is doing well with her home program and requires min cueing for core engagment, staying in comfortable range and for avoiding UT activiation. She is improving with posture with cueing. Physical Therapy Plan Frequency and Duration Frequency of Treatment 1-2x/week Duration of Treatment 2 month Plan of Care Start Date 12/29/18 Plan of Care End Date 02/28/19 Next Visit Focus/Plan Next Note Type Treatment Note Next Visit Plan Advance AROM and strengthening of L shoulder as tolerated for scapular control & work on core control
--- NOTE | 2019-02-09 14:21 | PT.OTN ---
Current Diagnoses Low back pain (02/09/19) Physical Therapy Treatment Note PT-OP-A Visit Information Start: 07/27/18 08:34 Freq: Status: Active Protocol: Document 02/09/19 14:03 [facility] (Rec: 02/09/19 14:21 [facility] [id number]) Out-Patient Physical Therapy Visit Information Visit Information Visit Type Treatment Note Visit Start Time 13:00 Visit Stop Time 13:50 Total Visit Minutes 50 Visit Number 40 Number of NATURAL DEVELOPER Visits 0 PT-OP-B Current Condition Start: 07/27/18 08:34 Freq: Status: Active Protocol: Document 12/29/18 16:04 [facility] (Rec: 12/29/18 16:48 [facility] [id number]) Current Condition History of Current Condition Current Complaints LBP & L hip pain; L shoulder History of Current Condition Pt had a fall when skating about a month ago where she hurt her shoulder but it started feeling better. She reports it dislocated and she self relocated it. She cannot sleep on it independtly. Pt reports about 1.5-2 weeks ago and she got a CT and they injected into her shoulder and since then its been worse. Pt report it is like a tooth ache. She does heat every night and has trouble sleeping . Pt reports her back has been doing better but gives out every day at 4pm and she has to lay down on a hard surface to relieve pain. Ant L hip pain is improving. Pt reports some days she is even waking up and her back is feeling good. Pt reports when something stressful happens, pain increases. Prior Treatments and Tests 1. Degenerative joint disease, moderate in glenohumeral joint and mild in acromioclavicular joint. 2. A 3mm intra-articular body in the anteroinferior glenohumeral joint. 3. The inferior glenoid appears irregular suspicious for labral tear. 4. Superior migration of humeral head suspicious for chronic rotator cuff tendon tear Per CT scan Treatment Goals Patient/Caregiver Goals return to typical activity PT-OP-C Subjective Start: 07/27/18 08:34 Freq: Status: Active Protocol: Document 02/09/19 14:03 [facility] (Rec: 02/09/19 14:21 [facility] [id number]) OP-PT Subjective Patient Comments Patient Comments Pt reports frustration that pain is still there. Pt reorts compliance with HEP. Notes grandkids have been massaging UT PT-OP-G Mobility & Gait Start: 07/27/18 08:34 Freq: Status: Active Protocol: Document 07/26/18 17:30 EA (Rec: 07/27/18 09:34 EA [id number]) OP Gait Assessment Comments Gait Comments No gait deviation noted Stair Climbing Evaluation Comments Stair Climbing Comments No stairs difficulty PT-OP-J Posture/Palpation/Skin Start: 07/27/18 08:34 Freq: Status: Active Protocol: Document 07/26/18 17:30 EA (Rec: 07/27/18 09:34 EA [id number]) Posture Evaluation Comments Posture Comments Good general posture with slight increased in lumbar lordosis Palpation Assessment Location One Palpation Location Both paralumbars, QL Palpation Findings Soft Tissue Tightness Muscle Guarding Tenderness Skin Assessment Other Assessments Skin Assessment Comments Palpable electronic device placed to R upper gluteal area PT-OP-K Range of Motion Start: 07/27/18 08:34 Freq: Status: Active Protocol: Document 12/29/18 16:04 [facility] (Rec: 12/29/18 16:48 [facility] [id number]) Shoulder Goniometric Range of Motion Shoulder Right Active Flexion 150 Abduction 167 External Rotation at 0 degrees Abduction 60 Internal Rotation Behind Back (text) T7 Left Active Flexion 62 Abduction 43 External Rotation at 0 degrees Abduction 29 Internal Rotation Behind Back (text) L buttock distal PT-OP-L Special Tests Start: 07/27/18 08:34 Freq: Status: Active Protocol: Document 07/26/18 17:30 EA (Rec: 07/27/18 09:34 EA [id number]) Special Tests Lumbar Spine Special Tests Other- 1 Test Results Neg Gaenlen's Slump Test Results negative Straight Leg Raise Test Results negative Compression Test Results negative PT-OP-M Strength Start: 07/27/18 08:34 Freq: Status: Active Protocol: Document 07/26/18 17:30 EA (Rec: 07/27/18 09:34 EA [id number]) Hip Strength Hip Manual Muscle Testing Right Reason Not Measured WFL Left Reason Not Measured WFL PT-OP-Q Treatments Start: 07/27/18 08:34 Freq: Status: Active Protocol: Document 02/09/19 14:03 [facility] (Rec: 02/09/19 14:21 [facility] [id number]) Manual Therapy Treatment Soft Tissue Mobilization STM L UT/scalenes,lateral shld Body Location L shoulder/UTs Mobilization Type Myofascial Release Rolling Sustained Pressure Intensity/Depth Moderate Body Position Hooklying Joint Mobilizations 3 Joint L GH Direction post & distraction Grade II Body Position Hooklying Neuro Re-Education Treatment Other Activities PNF Comments ant elevation & post depression of pelvis & post deperssion of shoulder with rhythmic initiation to Combo of isotonics and mass flex and ext comboof isotonics Self-Care/Home Management Treatment Education Other Education edu of shoulder and neural anatomy and how central censetization can occur. Edu on importance of movement exercsies, edu on how to prop shoulder & importance of working on exercises. PT-OP-R Modalities Start: 07/27/18 08:34 Freq: Status: Active Protocol: Document 02/09/19 14:03 [facility] (Rec: 02/09/19 14:21 [facility] [id number]) Hot Pack/Cold Pack Treatment Hot Pack Location L shoulder Patient Position Supine Treatment Duration (minutes) 10 PT-OP-T Assessment and Plan Start: 07/27/18 08:34 Freq: Status: Active Protocol: Document 02/09/19 14:03 [facility] (Rec: 02/09/19 14:21 [facility] [id number]) Physical Therapy Assessment Goals shoulder Correction Goal (LTG) Pt will have full AROM in order to allow pt to do typical daily activities without inc pain. LTG Duration 02/28/19 Four Impairment No HEP in place Electrical Project Engineer Goal (LTG) Patient will exhibit independent safe home exercise program LTG Duration achieved progressing as tolerated Three Impairment Impaired sitting tolerance with less than 10 mins Correction Goal (LTG) Patient will sit more than 1 hour with no increase in symptoms 12/29-15 min LTG Duration 4 wks Two Impairment Impaired Lumbosacral ROM Electrical Project Engineer Goal (LTG) Patient will exhibits near functional range lumbosacral ROM to enhance functional mobility without limitation LTG Duration 4 wks One Impairment Oswetry low back impairement scale of 34/50 Electrical Project Engineer Goal (LTG) Patient will have Oswetry low back impairment scale of < 15/ 50 LTG Duration 4 wks Assessment Summary Assessment Pt required encouragement and edu on where she has improved. Improved rolling techniquie with PNF rx and pt cued to not hold breath with rolling. Improved PROM to almost full and lacking only 10 deg into all planes except IR which is about 45 deg limited prior to mobs and only about 20 deg limited after mobs. Physical Therapy Plan Frequency and Duration Frequency of Treatment 1-2x/week Duration of Treatment 2 month Plan of Care Start Date 12/29/18 Plan of Care End Date 02/28/19 Next Visit Focus/Plan Next Note Type Treatment Note Next Visit Plan Try advancing strengthening of shoulder
--- NOTE | 2019-02-22 14:56 | PT.OTN ---
Current Diagnoses Low back pain (02/22/19) Physical Therapy Treatment Note PT-OP-A Visit Information Start: 07/27/18 08:34 Freq: Status: Active Protocol: Document 02/22/19 13:37 [facility] (Rec: 02/22/19 14:55 [facility] [id number]) Out-Patient Physical Therapy Visit Information Visit Information Visit Type Progress Note Visit Start Time 13:45 Visit Stop Time 14:30 Total Visit Minutes 45 Visit Number 41 Number of MUD TRUCKER Visits 0 PT-OP-B Current Condition Start: 07/27/18 08:34 Freq: Status: Active Protocol: Document 12/29/18 16:04 [facility] (Rec: 12/29/18 16:48 [facility] [id number]) Current Condition History of Current Condition Current Complaints LBP & L hip pain; L shoulder History of Current Condition Pt had a fall when skating about a month ago where she hurt her shoulder but it started feeling better. She reports it dislocated and she self relocated it. She cannot sleep on it independtly. Pt reports about 1.5-2 weeks ago and she got a CT and they injected into her shoulder and since then its been worse. Pt report it is like a tooth ache. She does heat every night and has trouble sleeping . Pt reports her back has been doing better but gives out every day at 4pm and she has to lay down on a hard surface to relieve pain. Ant L hip pain is improving. Pt reports some days she is even waking up and her back is feeling good. Pt reports when something stressful happens, pain increases. Prior Treatments and Tests 1. Degenerative joint disease, moderate in glenohumeral joint and mild in acromioclavicular joint. 2. A 3mm intra-articular body in the anteroinferior glenohumeral joint. 3. The inferior glenoid appears irregular suspicious for labral tear. 4. Superior migration of humeral head suspicious for chronic rotator cuff tendon tear Per CT scan Treatment Goals Patient/Caregiver Goals return to typical activity PT-OP-C Subjective Start: 07/27/18 08:34 Freq: Status: Active Protocol: Document 02/22/19 13:37 [facility] (Rec: 02/22/19 14:55 [facility] [id number]) OP-PT Subjective Patient Comments Patient Comments Pt reports compliance with HEP . She stopped taking ibuprofen . She has some good and bad days. Pt has pain down her arm sometimes. Pt sees the hand doctor within the next week. Pt was able to walk the dog for 25 min with hills but had pain getting in and out of the car for this PT appt and had inc LBP and was able to do glute sets and have it release . Wearing watch is too heavy Patient Questionnaires Oswestry Low Back Index Oswestry Score 46 Oswestry Impairment 40 to 59% Impaired (Score 40- 59) PT-OP-G Mobility & Gait Start: 07/27/18 08:34 Freq: Status: Active Protocol: Document 07/26/18 17:30 [facility] (Rec: 07/27/18 09:34 EA [id number]) OP Gait Assessment Comments Gait Comments No gait deviation noted Stair Climbing Evaluation Comments Stair Climbing Comments No stairs difficulty PT-OP-J Posture/Palpation/Skin Start: 07/27/18 08:34 Freq: Status: Active Protocol: Document 07/26/18 17:30 [facility] (Rec: 07/27/18 09:34 EA [id number]) Posture Evaluation Comments Posture Comments Good general posture with slight increased in lumbar lordosis Palpation Assessment Location One Palpation Location Both paralumbars, QL Palpation Findings Soft Tissue Tightness Muscle Guarding Tenderness Skin Assessment Other Assessments Skin Assessment Comments Palpable electronic device placed to R upper gluteal area PT-OP-K Range of Motion Start: 07/27/18 08:34 Freq: Status: Active Protocol: Document 02/22/19 13:37 [facility] (Rec: 02/22/19 14:55 [facility] [id number]) Cervical Spine Range of Motion Cervical Spine Active Degrees Flexion 51 Extension 21 Rotation Left 46 Rotation Right 30 Lateral Flexion Left 20 Lateral Flexion Right 22 Lumbar Spine Range of Motion Lumbar Spine Active Percentage Flexion 100 Extension 80 Rotation Left 75 Rotation Right 75 Lateral Flexion Left 90 Lateral Flexion Right 90 Shoulder Goniometric Range of Motion Shoulder Left Active Flexion 126 Extension 43 Abduction 125 External Rotation at 0 degrees Abduction 30 Internal Rotation Behind Back (text) S2 PT-OP-L Special Tests Start: 07/27/18 08:34 Freq: Status: Active Protocol: Document 07/26/18 17:30 [facility] (Rec: 07/27/18 09:34 EA [id number]) Special Tests Lumbar Spine Special Tests Other- 1 Test Results Neg Gaenlen's Slump Test Results negative Straight Leg Raise Test Results negative Compression Test Results negative PT-OP-M Strength Start: 07/27/18 08:34 Freq: Status: Active Protocol: Document 07/26/18 17:30 EA (Rec: 07/27/18 09:34 EA [id number]) Hip Strength Hip Manual Muscle Testing Right Reason Not Measured WFL Left Reason Not Measured WFL PT-OP-Q Treatments Start: 07/27/18 08:34 Freq: Status: Active Protocol: Document 02/22/19 13:37 [facility] (Rec: 02/22/19 14:55 [facility] [id number]) Manual Therapy Treatment Soft Tissue Mobilization STM L UT/scalenes,lateral shld Body Location L ant, sup & post shoulder/ UTs Mobilization Type Myofascial Release Rolling Sustained Pressure Intensity/Depth Superficial Body Position Hooklying 3 Body Location biceps L Mobilization Type Rolling Intensity/Depth Superficial 2 Body Location pec Mobilization Type Rolling Intensity/Depth Superficial 1 Body Location triceps L Mobilization Type Myofascial Release Rolling Intensity/Depth Superficial Self-Care/Home Management Treatment Education Other Education edu of shoulder anatomy and working on touching the shoulder & having her or grandkids gently massaging it also. Edu on importance of cont exercise PT-OP-R Modalities Start: 07/27/18 08:34 Freq: Status: Active Protocol: Document 02/09/19 14:03 [facility] (Rec: 02/09/19 14:21 [facility] [id number]) Hot Pack/Cold Pack Treatment Hot Pack Location L shoulder Patient Position Supine Treatment Duration (minutes) 10 PT-OP-T Assessment and Plan Start: 07/27/18 08:34 Freq: Status: Active Protocol: Document 02/22/19 13:37 [facility] (Rec: 02/22/19 14:55 [facility] [id number]) Physical Therapy Assessment Goals shoulder Longterm Goal (LTG) Pt will have full AROM in order to allow pt to do typical daily activities without inc pain. LTG Duration 04/24/19 Four Impairment No HEP in place Longterm Goal (LTG) Patient will exhibit independent safe home exercise program LTG Duration achieved progressing as tolerated Three Impairment Impaired sitting tolerance with less than 10 mins Longterm Goal (LTG) Patient will sit more than 1 hour with no increase in symptoms 12/29-15 min 02/22- pt sits no more than 20 min typically and gets up to stretch out then sits back down as needed LTG Duration 4 wks Two Impairment Impaired Lumbosacral ROM Longterm Goal (LTG) Patient will exhibits near functional range lumbosacral ROM to enhance functional mobility without limitation LTG Duration achieved One Impairment Oswetry low back impairement scale of 34/50 Longterm Goal (LTG) Patient will have Oswetry low back impairment scale of < 15/ 50 02/22- LTG Duration 4 wks Assessment Summary Assessment Pt is improving with functional tolerance for her back and shoulder but is still significantly limited with pain. SHe has started to find good pain relief strategies, but she still has significantly limited ROM & strength that does not allow her to participate in all the typical ADLs she would or activities with her grandchildren. She is working hard at inc her ROM at home, and was able to tolerate inc ROM today without inc pain. She was very sensitive to touch today as just gentle touching pressure to ant or sup shoulder inc pain up UT to neck to pt. SHe appears to have some connection of neck and shoulder pain as some of her cervical ROM inc pain into her shoulder. Physical Therapy Plan Frequency and Duration Frequency of Treatment 1-2x/week Duration of Treatment 2 month Plan of Care Start Date 02/22/19 Plan of Care End Date 04/24/19 Therapeutic Interventions Therapeutic Interventions Aquatic Therapy Balance Training Gait Training Home Exercise Program Joint Mobilizations Manual Therapy Neuromuscular Re-education Patient/Caregiver Education Self-Care/Home Management Soft Tissue Mobilization Therapeutic Activities Therapeutic Exercises Modalities Cold Pack/Ice Massage Electric Stimulation Hot Packs Infrared Therapy Iontophoresis Ultrasound Next Visit Focus/Plan Next Note Type Treatment Note Next Visit Plan Try advancing strengthening of shoulder
--- NOTE | 2019-02-22 14:56 | PT.OPPOC ---
Current Diagnoses Low back pain (02/22/19) Provider Visit Care Team Role Provider Type Tiny Henderson MD Family Provider Physician Primary Care Provider Specialty: Family Practice Address: [address] [place], [address] Email: [email or web address] JONNY Ospina Attending Provider Advanced Pin Feather Machine Operator Specialty: Medical Address: [address] [place], [address] Email: [email or web address] Plan Of Care PT-OP-T Assessment and Plan Start: 07/27/18 08:34 Freq: Status: Active Protocol: Document 02/22/19 13:37 [facility] (Rec: 02/22/19 14:55 [facility] [id number]) Physical Therapy Assessment Goals shoulder Correction Goal (LTG) Pt will have full AROM in order to allow pt to do typical daily activities without inc pain. LTG Duration 04/24/19 Four Impairment No HEP in place Correction Goal (LTG) Patient will exhibit independent safe home exercise program LTG Duration achieved progressing as tolerated Three Impairment Impaired sitting tolerance with less than 10 mins Correction Goal (LTG) Patient will sit more than 1 hour with no increase in symptoms 12/29-15 min 02/22- pt sits no more than 20 min typically and gets up to stretch out then sits back down as needed LTG Duration 4 wks Two Impairment Impaired Lumbosacral ROM Fondant Puff Maker Goal (LTG) Patient will exhibits near functional range lumbosacral ROM to enhance functional mobility without limitation LTG Duration achieved One Impairment Oswetry low back impairement scale of 34/50 Fondant Puff Maker Goal (LTG) Patient will have Oswetry low back impairment scale of < 15/ 50 02/22- LTG Duration 4 wks Assessment Summary Assessment Pt is improving with functional tolerance for her back and shoulder but is still significantly limited with pain. SHe has started to find good pain relief strategies, but she still has significantly limited ROM & strength that does not allow her to participate in all the typical ADLs she would or activities with her grandchildren. She is working hard at inc her ROM at home, and was able to tolerate inc ROM today without inc pain. She was very sensitive to touch today as just gentle touching pressure to ant or sup shoulder inc pain up UT to neck to pt. SHe appears to have some connection of neck and shoulder pain as some of her cervical ROM inc pain into her shoulder. Physical Therapy Plan Frequency and Duration Frequency of Treatment 1-2x/week Duration of Treatment 2 month Plan of Care Start Date 02/22/19 Plan of Care End Date 04/24/19 Therapeutic Interventions Therapeutic Interventions Aquatic Therapy Balance Training Gait Training Home Exercise Program Joint Mobilizations Manual Therapy Neuromuscular Re-education Patient/Caregiver Education Self-Care/Home Management Soft Tissue Mobilization Therapeutic Activities Therapeutic Exercises Modalities Cold Pack/Ice Massage Electric Stimulation Hot Packs Infrared Therapy Iontophoresis Ultrasound Next Visit Focus/Plan Next Note Type Treatment Note Next Visit Plan Try advancing strengthening of shoulder Plan of Care Dates Plan of Care Start Date 02/22/19 Plan of Care End Date 04/24/19 Please Sign and Return: I have reviewed this Plan of Care and certify that the skilled therapy services above are required to meet the patient?s needs. Physician Signature Date Printed Name and Credentials Clinical Instructor Signature Printed Name and Credentials
--- NOTE | 2019-03-15 15:59 | PT.OTN ---
Current Diagnoses Low back pain (03/15/19) Physical Therapy Treatment Note PT-OP-A Visit Information Start: 07/27/18 08:34 Freq: Status: Active Protocol: Document 03/15/19 14:43 [facility] (Rec: 03/15/19 15:58 [facility] [id number]) Out-Patient Physical Therapy Visit Information Visit Information Visit Type Treatment Note Visit Start Time 10:30 Visit Stop Time 11:30 Total Visit Minutes 60 Visit Number 42 Number of PET TRAINING INSTRUCTOR Visits 0 PT-OP-B Current Condition Start: 07/27/18 08:34 Freq: Status: Active Protocol: Document 12/29/18 16:04 [facility] (Rec: 12/29/18 16:48 [facility] [id number]) Current Condition History of Current Condition Current Complaints LBP & L hip pain; L shoulder History of Current Condition Pt had a fall when skating about a month ago where she hurt her shoulder but it started feeling better. She reports it dislocated and she self relocated it. She cannot sleep on it independtly. Pt reports about 1.5-2 weeks ago and she got a CT and they injected into her shoulder and since then its been worse. Pt report it is like a tooth ache. She does heat every night and has trouble sleeping . Pt reports her back has been doing better but gives out every day at 4pm and she has to lay down on a hard surface to relieve pain. Ant L hip pain is improving. Pt reports some days she is even waking up and her back is feeling good. Pt reports when something stressful happens, pain increases. Prior Treatments and Tests 1. Degenerative joint disease, moderate in glenohumeral joint and mild in acromioclavicular joint. 2. A 3mm intra-articular body in the anteroinferior glenohumeral joint. 3. The inferior glenoid appears irregular suspicious for labral tear. 4. Superior migration of humeral head suspicious for chronic rotator cuff tendon tear Per CT scan Treatment Goals Patient/Caregiver Goals return to typical activity PT-OP-C Subjective Start: 07/27/18 08:34 Freq: Status: Active Protocol: Document 03/15/19 14:43 [facility] (Rec: 03/15/19 15:58 [facility] [id number]) OP-PT Subjective Patient Comments Patient Comments Pt reports compliance w/ HEP. Notes improvement with motion. Pt reports seeing massage therapist 1x. Reports getting nerve conduction study. Patient Reported Progress Improving PT-OP-G Mobility & Gait Start: 07/27/18 08:34 Freq: Status: Active Protocol: Document 07/26/18 17:30 EA (Rec: 07/27/18 09:34 EA [id number]) OP Gait Assessment Comments Gait Comments No gait deviation noted Stair Climbing Evaluation Comments Stair Climbing Comments No stairs difficulty PT-OP-J Posture/Palpation/Skin Start: 07/27/18 08:34 Freq: Status: Active Protocol: Document 07/26/18 17:30 [facility] (Rec: 07/27/18 09:34 EA [id number]) Posture Evaluation Comments Posture Comments Good general posture with slight increased in lumbar lordosis Palpation Assessment Location One Palpation Location Both paralumbars, QL Palpation Findings Soft Tissue Tightness,Muscle Guarding,Tenderness Skin Assessment Other Assessments Skin Assessment Comments Palpable electronic device placed to R upper gluteal area PT-OP-K Range of Motion Start: 07/27/18 08:34 Freq: Status: Active Protocol: Document 02/22/19 13:37 [facility] (Rec: 02/22/19 14:55 [facility] [id number]) Cervical Spine Range of Motion Cervical Spine Active Degrees Flexion 51 Extension 21 Rotation Left 46 Rotation Right 30 Lateral Flexion Left 20 Lateral Flexion Right 22 Lumbar Spine Range of Motion Lumbar Spine Active Percentage Flexion 100 Extension 80 Rotation Left 75 Rotation Right 75 Lateral Flexion Left 90 Lateral Flexion Right 90 Shoulder Goniometric Range of Motion Shoulder Left Active Flexion 126 Extension 43 Abduction 125 External Rotation at 0 degrees Abduction 30 Internal Rotation Behind Back (text) S2 PT-OP-L Special Tests Start: 07/27/18 08:34 Freq: Status: Active Protocol: Document 07/26/18 17:30 [facility] (Rec: 07/27/18 09:34 EA [id number]) Special Tests Lumbar Spine Special Tests Other- 1 Test Results Neg Gaenlen's Slump Test Results negative Straight Leg Raise Test Results negative Compression Test Results negative PT-OP-M Strength Start: 07/27/18 08:34 Freq: Status: Active Protocol: Document 07/26/18 17:30 [facility] (Rec: 07/27/18 09:34 EA [id number]) Hip Strength Hip Manual Muscle Testing Right Reason Not Measured WFL Left Reason Not Measured WFL PT-OP-Q Treatments Start: 07/27/18 08:34 Freq: Status: Active Protocol: Document 03/15/19 14:43 [facility] (Rec: 03/15/19 15:58 [facility] [id number]) Therapeutic Exercises Prone Exercises row Prone Exercise Name over tball Side bilateral Reps/Minutes 2x8 Therapeutic Activity Therapeutic Activity 3 Name car posture with use of towels Manual Therapy Treatment Soft Tissue Mobilization 3 Body Location UT, rhomboids Mobilization Type Rolling Intensity/Depth Superficial Body Position Sitting Self-Care/Home Management Treatment Education Other Education anatomy of shoulder & nerves. Edu on use of estim for pain relief not for imrpoving nerve conduction as pt thought, review of HEP with tbar, edu of how to do exercises in pool for shoudler per pt questioning, PT-OP-R Modalities Start: 07/27/18 08:34 Freq: Status: Active Protocol: Document 03/15/19 14:43 [facility] (Rec: 03/15/19 15:58 [facility] [id number]) Electric Stimulation Electric Stimulation Interferential Current (IFC) Body Location R post brachium & post scap region Duration (Minutes) 15 Intensity 31 Combined With Heat/Cold Hot Pack PT-OP-T Assessment and Plan Start: 07/27/18 08:34 Freq: Status: Active Protocol: Document 03/15/19 14:43 [facility] (Rec: 03/15/19 15:58 [facility] [id number]) Physical Therapy Assessment Goals shoulder On Site Manager Goal (LTG) Pt will have full AROM in order to allow pt to do typical daily activities without inc pain. LTG Duration 04/24/19 Four Impairment No HEP in place On Site Manager Goal (LTG) Patient will exhibit independent safe home exercise program LTG Duration achieved progressing as tolerated Three Impairment Impaired sitting tolerance with less than 10 mins On Site Manager Goal (LTG) Patient will sit more than 1 hour with no increase in symptoms 12/29-15 min 02/22- pt sits no more than 20 min typically and gets up to stretch out then sits back down as needed LTG Duration 4 wks Two Impairment Impaired Lumbosacral ROM On Site Manager Goal (LTG) Patient will exhibits near functional range lumbosacral ROM to enhance functional mobility without limitation LTG Duration achieved One Impairment Oswetry low back impairement scale of 34/50 On Site Manager Goal (LTG) Patient will have Oswetry low back impairment scale of < 15/ 50 02/22- LTG Duration 4 wks Assessment Summary Assessment Pt able to tolerate some active prone rowing against gravity with cueing for scapular engagment. Edu on anatomy per pt questioning and discussed importance of strengthening for pt. Physical Therapy Plan Frequency and Duration Frequency of Treatment 1-2x/week Duration of Treatment 2 month Plan of Care Start Date 02/22/19 Plan of Care End Date 04/24/19 Next Visit Focus/Plan Next Note Type Treatment Note Next Visit Plan Try some s/l strengthening of shoulder & work on AROM with resistance of tband or 1lb wt if pt tolerates
--- NOTE | 2019-03-22 17:37 | PT.OTN ---
Current Diagnoses Low back pain (03/22/19) Physical Therapy Treatment Note PT-OP-A Visit Information Start: 07/27/18 08:34 Freq: Status: Active Protocol: Document 03/22/19 17:11 [facility] (Rec: 03/22/19 17:36 [facility] [id number]) Out-Patient Physical Therapy Visit Information Visit Information Visit Type Treatment Note Visit Start Time 14:37 Visit Stop Time 15:25 Total Visit Minutes 48 Visit Number 43 Number of ROLL SETTER Visits 0 PT-OP-B Current Condition Start: 07/27/18 08:34 Freq: Status: Active Protocol: Document 12/29/18 16:04 [facility] (Rec: 12/29/18 16:48 [facility] [id number]) Current Condition History of Current Condition Current Complaints LBP & L hip pain; L shoulder History of Current Condition Pt had a fall when skating about a month ago where she hurt her shoulder but it started feeling better. She reports it dislocated and she self relocated it. She cannot sleep on it independtly. Pt reports about 1.5-2 weeks ago and she got a CT and they injected into her shoulder and since then its been worse. Pt report it is like a tooth ache. She does heat every night and has trouble sleeping . Pt reports her back has been doing better but gives out every day at 4pm and she has to lay down on a hard surface to relieve pain. Ant L hip pain is improving. Pt reports some days she is even waking up and her back is feeling good. Pt reports when something stressful happens, pain increases. Prior Treatments and Tests 1. Degenerative joint disease, moderate in glenohumeral joint and mild in acromioclavicular joint. 2. A 3mm intra-articular body in the anteroinferior glenohumeral joint. 3. The inferior glenoid appears irregular suspicious for labral tear. 4. Superior migration of humeral head suspicious for chronic rotator cuff tendon tear Per CT scan Treatment Goals Patient/Caregiver Goals return to typical activity PT-OP-C Subjective Start: 07/27/18 08:34 Freq: Status: Active Protocol: Document 03/22/19 17:11 [facility] (Rec: 03/22/19 17:36 [facility] [id number]) OP-PT Subjective Patient Comments Patient Comments Pt reports she had 5 good days and 2 bad days in the past week. REports progress. Notes she sees re: EMG later this week. PT-OP-G Mobility & Gait Start: 07/27/18 08:34 Freq: Status: Active Protocol: Document 07/26/18 17:30 [facility] (Rec: 07/27/18 09:34 EA [id number]) OP Gait Assessment Comments Gait Comments No gait deviation noted Stair Climbing Evaluation Comments Stair Climbing Comments No stairs difficulty PT-OP-J Posture/Palpation/Skin Start: 07/27/18 08:34 Freq: Status: Active Protocol: Document 07/26/18 17:30 [facility] (Rec: 07/27/18 09:34 EA [id number]) Posture Evaluation Comments Posture Comments Good general posture with slight increased in lumbar lordosis Palpation Assessment Location One Palpation Location Both paralumbars, QL Palpation Findings Soft Tissue Tightness,Muscle Guarding,Tenderness Skin Assessment Other Assessments Skin Assessment Comments Palpable electronic device placed to R upper gluteal area PT-OP-K Range of Motion Start: 07/27/18 08:34 Freq: Status: Active Protocol: Document 02/22/19 13:37 [facility] (Rec: 02/22/19 14:55 [facility] [id number]) Cervical Spine Range of Motion Cervical Spine Active Degrees Flexion 51 Extension 21 Rotation Left 46 Rotation Right 30 Lateral Flexion Left 20 Lateral Flexion Right 22 Lumbar Spine Range of Motion Lumbar Spine Active Percentage Flexion 100 Extension 80 Rotation Left 75 Rotation Right 75 Lateral Flexion Left 90 Lateral Flexion Right 90 Shoulder Goniometric Range of Motion Shoulder Left Active Flexion 126 Extension 43 Abduction 125 External Rotation at 0 degrees Abduction 30 Internal Rotation Behind Back (text) S2 PT-OP-L Special Tests Start: 07/27/18 08:34 Freq: Status: Active Protocol: Document 07/26/18 17:30 [facility] (Rec: 07/27/18 09:34 EA [id number]) Special Tests Lumbar Spine Special Tests Other- 1 Test Results Neg Gaenlen's Slump Test Results negative Straight Leg Raise Test Results negative Compression Test Results negative PT-OP-M Strength Start: 07/27/18 08:34 Freq: Status: Active Protocol: Document 07/26/18 17:30 [facility] (Rec: 07/27/18 09:34 EA [id number]) Hip Strength Hip Manual Muscle Testing Right Reason Not Measured WFL Left Reason Not Measured WFL PT-OP-Q Treatments Start: 07/27/18 08:34 Freq: Status: Active Protocol: Document 03/22/19 17:11 [facility] (Rec: 03/22/19 17:36 [facility] [id number]) Therapeutic Exercises Standing Exercises 7 Standing Exercise Name pec stretch w/hand turned backwards Side left Reps/Minutes 30 sec x2 5 Standing Exercise Name scap retraction & depression Side bilateral Reps/Minutes 10 Manual Therapy Treatment Soft Tissue Mobilization STM L UT/scalenes,lateral shld Body Location L scalenes & pecs Mobilization Type Myofascial Release,Rolling, Sustained Pressure Intensity/Depth Superficial Comments pt only able to tolerate light pressure Neuro Re-Education Treatment Other Activities PNF Details ant elevation & post depression Comments L scapula; rhythmic inititation & Combo of isotonics PT-OP-R Modalities Start: 07/27/18 08:34 Freq: Status: Active Protocol: Document 03/22/19 17:11 [facility] (Rec: 03/22/19 17:36 [facility] [id number]) Electric Stimulation Electric Stimulation Interferential Current (IFC) Body Location R post and ant brachium Duration (Minutes) 10 Intensity 31 Combined With Heat/Cold Hot Pack Comments Stopped early d/t pt being uncomfortable PT-OP-T Assessment and Plan Start: 07/27/18 08:34 Freq: Status: Active Protocol: Document 03/22/19 17:11 [facility] (Rec: 03/22/19 17:36 [facility] [id number]) Physical Therapy Assessment Goals shoulder Fpc Goal (LTG) Pt will have full AROM in order to allow pt to do typical daily activities without inc pain. LTG Duration 04/24/19 Four Impairment No HEP in place Rubber Compounder Supervisor Goal (LTG) Patient will exhibit independent safe home exercise program LTG Duration achieved progressing as tolerated Three Impairment Impaired sitting tolerance with less than 10 mins Fpc Goal (LTG) Patient will sit more than 1 hour with no increase in symptoms 12/29-15 min 02/22- pt sits no more than 20 min typically and gets up to stretch out then sits back down as needed LTG Duration 4 wks Two Impairment Impaired Lumbosacral ROM Fpc Goal (LTG) Patient will exhibits near functional range lumbosacral ROM to enhance functional mobility without limitation LTG Duration achieved One Impairment Oswetry low back impairement scale of 34/50 Rubber Compounder Supervisor Goal (LTG) Patient will have Oswetry low back impairment scale of < 15/ 50 02/22- LTG Duration 4 wks Assessment Summary Assessment Pt cont to be very tender to touch but was able to tolerate gentle STM and gentle resistance for PNF patterns. Pt was able to improve in ability to do scap depression & retraction after PNF. Physical Therapy Plan Frequency and Duration Frequency of Treatment 1-2x/week Duration of Treatment 2 month Plan of Care Start Date 02/22/19 Plan of Care End Date 04/24/19 Next Visit Focus/Plan Next Note Type Treatment Note Next Visit Plan Try some s/l strengthening of shoulder & work on AROM with resistance of tband or 1lb wt if pt tolerates
--- NOTE | 2019-03-31 15:12 | PT.OTN ---
Current Diagnoses Low back pain (03/31/19) Physical Therapy Treatment Note PT-OP-A Visit Information Start: 07/27/18 08:34 Freq: Status: Active Protocol: Document 03/31/19 09:53 [facility] (Rec: 03/31/19 15:11 [facility] [id number]) Out-Patient Physical Therapy Visit Information Visit Information Visit Type Treatment Note Visit Start Time 09:48 Visit Stop Time 10:30 Total Visit Minutes 42 Visit Number 44 Number of CHILDREN'S BOOK AUTHOR Visits 0 PT-OP-B Current Condition Start: 07/27/18 08:34 Freq: Status: Active Protocol: Document 12/29/18 16:04 [facility] (Rec: 12/29/18 16:48 [facility] [id number]) Current Condition History of Current Condition Current Complaints LBP & L hip pain; L shoulder History of Current Condition Pt had a fall when skating about a month ago where she hurt her shoulder but it started feeling better. She reports it dislocated and she self relocated it. She cannot sleep on it independtly. Pt reports about 1.5-2 weeks ago and she got a CT and they injected into her shoulder and since then its been worse. Pt report it is like a tooth ache. She does heat every night and has trouble sleeping . Pt reports her back has been doing better but gives out every day at 4pm and she has to lay down on a hard surface to relieve pain. Ant L hip pain is improving. Pt reports some days she is even waking up and her back is feeling good. Pt reports when something stressful happens, pain increases. Prior Treatments and Tests 1. Degenerative joint disease, moderate in glenohumeral joint and mild in acromioclavicular joint. 2. A 3mm intra-articular body in the anteroinferior glenohumeral joint. 3. The inferior glenoid appears irregular suspicious for labral tear. 4. Superior migration of humeral head suspicious for chronic rotator cuff tendon tear Per CT scan Treatment Goals Patient/Caregiver Goals return to typical activity PT-OP-C Subjective Start: 07/27/18 08:34 Freq: Status: Active Protocol: Document 03/31/19 09:53 [facility] (Rec: 03/31/19 15:11 [facility] [id number]) OP-PT Subjective Patient Comments Patient Comments Pt reports she wants to go over HEP. 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 Notes she is getting a 2nd opinion thursday PT-OP-G Mobility & Gait Start: 07/27/18 08:34 Freq: Status: Active Protocol: Document 07/26/18 17:30 [facility] (Rec: 07/27/18 09:34 EA [id number]) OP Gait Assessment Comments Gait Comments No gait deviation noted Stair Climbing Evaluation Comments Stair Climbing Comments No stairs difficulty PT-OP-J Posture/Palpation/Skin Start: 07/27/18 08:34 Freq: Status: Active Protocol: Document 07/26/18 17:30 [facility] (Rec: 07/27/18 09:34 EA [id number]) Posture Evaluation Comments Posture Comments Good general posture with slight increased in lumbar lordosis Palpation Assessment Location One Palpation Location Both paralumbars, QL Palpation Findings Soft Tissue Tightness,Muscle Guarding,Tenderness Skin Assessment Other Assessments Skin Assessment Comments Palpable electronic device placed to R upper gluteal area PT-OP-K Range of Motion Start: 07/27/18 08:34 Freq: Status: Active Protocol: Document 02/22/19 13:37 [facility] (Rec: 02/22/19 14:55 [facility] [id number]) Cervical Spine Range of Motion Cervical Spine Active Degrees Flexion 51 Extension 21 Rotation Left 46 Rotation Right 30 Lateral Flexion Left 20 Lateral Flexion Right 22 Lumbar Spine Range of Motion Lumbar Spine Active Percentage Flexion 100 Extension 80 Rotation Left 75 Rotation Right 75 Lateral Flexion Left 90 Lateral Flexion Right 90 Shoulder Goniometric Range of Motion Shoulder Left Active Flexion 126 Extension 43 Abduction 125 External Rotation at 0 degrees Abduction 30 Internal Rotation Behind Back (text) S2 PT-OP-L Special Tests Start: 07/27/18 08:34 Freq: Status: Active Protocol: Document 07/26/18 17:30 [facility] (Rec: 07/27/18 09:34 EA [id number]) Special Tests Lumbar Spine Special Tests Other- 1 Test Results Neg Gaenlen's Slump Test Results negative Straight Leg Raise Test Results negative Compression Test Results negative PT-OP-M Strength Start: 07/27/18 08:34 Freq: Status: Active Protocol: Document 07/26/18 17:30 [facility] (Rec: 07/27/18 09:34 EA [id number]) Hip Strength Hip Manual Muscle Testing Right Reason Not Measured WFL Left Reason Not Measured WFL PT-OP-Q Treatments Start: 07/27/18 08:34 Freq: Status: Active Protocol: Document 03/31/19 09:53 [facility] (Rec: 03/31/19 15:11 [facility] [id number]) Therapeutic Exercises Supine Exercises 11 Supine Exercise Name knees to chest B hand push Side bilateral Reps/Minutes 5sec x4 10 Supine Exercise Name diaphragmatic breathing Sidelying Exercises 2 Sidelying Exercise Name abd Side left Reps/Minutes 6 Comments stopped dt pain 1 Sidelying Exercise Name ER Side left Equipment Used 15 Manual Therapy Treatment Soft Tissue Mobilization 2 Body Location biceps Mobilization Type Rolling Intensity/Depth Superficial 1 Body Location pec & UT Mobilization Type Rolling Intensity/Depth Superficial Self-Care/Home Management Treatment Education Patient Education Home Exercise Program Other Education review HEP for exercises, discussed stopping crunches; educated how ot use towel & pillows to open knee or support abdomen PT-OP-R Modalities Start: 07/27/18 08:34 Freq: Status: Active Protocol: Document 03/22/19 17:11 [facility] (Rec: 03/22/19 17:36 [facility] [id number]) Electric Stimulation Electric Stimulation Interferential Current (IFC) Body Location R post and ant brachium Duration (Minutes) 10 Intensity 31 Combined With Heat/Cold Hot Pack Comments Stopped early d/t pt being uncomfortable PT-OP-T Assessment and Plan Start: 07/27/18 08:34 Freq: Status: Active Protocol: Document 03/31/19 09:53 [facility] (Rec: 03/31/19 15:11 [facility] [id number]) Physical Therapy Assessment Goals shoulder Casting House Worker Goal (LTG) Pt will have full AROM in order to allow pt to do typical daily activities without inc pain. LTG Duration 04/24/19 Four Impairment No HEP in place Detention Goal (LTG) Patient will exhibit independent safe home exercise program LTG Duration achieved progressing as tolerated Three Impairment Impaired sitting tolerance with less than 10 mins Casting House Worker Goal (LTG) Patient will sit more than 1 hour with no increase in symptoms 12/29-15 min 02/22- pt sits no more than 20 min typically and gets up to stretch out then sits back down as needed LTG Duration 4 wks One Impairment Oswetry low back impairement scale of 34/50 Casting House Worker Goal (LTG) Patient will have Oswetry low back impairment scale of < 15/ 50 02/22- LTG Duration 4 wks Assessment Summary Assessment Pt was able to do even AROM flex with RUE, but had difficulty with abd still. She cont to be restricted in overall ROM/strength and tolerance to activity. She was fatigued by end of session Physical Therapy Plan Frequency and Duration Frequency of Treatment 1-2x/week Duration of Treatment 2 month Plan of Care Start Date 02/22/19 Plan of Care End Date 04/24/19 Next Visit Focus/Plan Next Note Type Treatment Note Next Visit Plan cont to work on strengthening with gentle resistance
--- NOTE | 2019-04-11 16:02 | PT.OTN ---
Current Diagnoses Low back pain (04/11/19) Physical Therapy Treatment Note PT-OP-A Visit Information Start: 07/27/18 08:34 Freq: Status: Active Protocol: Document 04/11/19 14:51 [facility] (Rec: 04/11/19 16:02 [facility] [id number]) Out-Patient Physical Therapy Visit Information Visit Information Visit Type Treatment Note Visit Start Time 15:17 Visit Stop Time 15:58 Total Visit Minutes 41 Visit Number 45 Number of SALES DIRECTOR Visits 0 PT-OP-B Current Condition Start: 07/27/18 08:34 Freq: Status: Active Protocol: Document 12/29/18 16:04 [facility] (Rec: 12/29/18 16:48 [facility] [id number]) Current Condition History of Current Condition Current Complaints LBP & L hip pain; L shoulder History of Current Condition Pt had a fall when skating about a month ago where she hurt her shoulder but it started feeling better. She reports it dislocated and she self relocated it. She cannot sleep on it independtly. Pt reports about 1.5-2 weeks ago and she got a CT and they injected into her shoulder and since then its been worse. Pt report it is like a tooth ache. She does heat every night and has trouble sleeping . Pt reports her back has been doing better but gives out every day at 4pm and she has to lay down on a hard surface to relieve pain. Ant L hip pain is improving. Pt reports some days she is even waking up and her back is feeling good. Pt reports when something stressful happens, pain increases. Prior Treatments and Tests 1. Degenerative joint disease, moderate in glenohumeral joint and mild in acromioclavicular joint. 2. A 3mm intra-articular body in the anteroinferior glenohumeral joint. 3. The inferior glenoid appears irregular suspicious for labral tear. 4. Superior migration of humeral head suspicious for chronic rotator cuff tendon tear Per CT scan Treatment Goals Patient/Caregiver Goals return to typical activity PT-OP-C Subjective Start: 07/27/18 08:34 Freq: Status: Active Protocol: Document 04/11/19 14:51 [facility] (Rec: 04/11/19 16:02 [facility] [id number]) OP-PT Subjective Patient Comments Patient Comments Pt reports she got an injection in her shoulder last week and that helped. The MD thinks some of her arm pain is coming from her neck. PT-OP-G Mobility & Gait Start: 07/27/18 08:34 Freq: Status: Active Protocol: Document 07/26/18 17:30 [facility] (Rec: 07/27/18 09:34 EA [id number]) OP Gait Assessment Comments Gait Comments No gait deviation noted Stair Climbing Evaluation Comments Stair Climbing Comments No stairs difficulty PT-OP-J Posture/Palpation/Skin Start: 07/27/18 08:34 Freq: Status: Active Protocol: Document 07/26/18 17:30 [facility] (Rec: 07/27/18 09:34 EA [id number]) Posture Evaluation Comments Posture Comments Good general posture with slight increased in lumbar lordosis Palpation Assessment Location One Palpation Location Both paralumbars, QL Palpation Findings Soft Tissue Tightness,Muscle Guarding,Tenderness Skin Assessment Other Assessments Skin Assessment Comments Palpable electronic device placed to R upper gluteal area PT-OP-K Range of Motion Start: 07/27/18 08:34 Freq: Status: Active Protocol: Document 02/22/19 13:37 [facility] (Rec: 02/22/19 14:55 [facility] [id number]) Cervical Spine Range of Motion Cervical Spine Active Degrees Flexion 51 Extension 21 Rotation Left 46 Rotation Right 30 Lateral Flexion Left 20 Lateral Flexion Right 22 Lumbar Spine Range of Motion Lumbar Spine Active Percentage Flexion 100 Extension 80 Rotation Left 75 Rotation Right 75 Lateral Flexion Left 90 Lateral Flexion Right 90 Shoulder Goniometric Range of Motion Shoulder Left Active Flexion 126 Extension 43 Abduction 125 External Rotation at 0 degrees Abduction 30 Internal Rotation Behind Back (text) S2 PT-OP-L Special Tests Start: 07/27/18 08:34 Freq: Status: Active Protocol: Document 07/26/18 17:30 [facility] (Rec: 07/27/18 09:34 EA [id number]) Special Tests Lumbar Spine Special Tests Other- 1 Test Results Neg Gaenlen's Slump Test Results negative Straight Leg Raise Test Results negative Compression Test Results negative PT-OP-M Strength Start: 07/27/18 08:34 Freq: Status: Active Protocol: Document 07/26/18 17:30 [facility] (Rec: 07/27/18 09:34 EA [id number]) Hip Strength Hip Manual Muscle Testing Right Reason Not Measured WFL Left Reason Not Measured WFL PT-OP-Q Treatments Start: 07/27/18 08:34 Freq: Status: Active Protocol: Document 04/11/19 14:51 [facility] (Rec: 04/11/19 16:02 [facility] [id number]) Manual Therapy Treatment Soft Tissue Mobilization STM L UT/scalenes,lateral shld Body Location L scalenes & pecs & UT & SCM Mobilization Type Myofascial Release,Rolling, Sustained Pressure Intensity/Depth Superficial Comments pt only able to tolerate light pressure PT-OP-R Modalities Start: 07/27/18 08:34 Freq: Status: Active Protocol: Document 03/22/19 17:11 [facility] (Rec: 03/22/19 17:36 [facility] [id number]) Electric Stimulation Electric Stimulation Interferential Current (IFC) Body Location R post and ant brachium Duration (Minutes) 10 Intensity 31 Combined With Heat/Cold Hot Pack Comments Stopped early d/t pt being uncomfortable PT-OP-T Assessment and Plan Start: 07/27/18 08:34 Freq: Status: Active Protocol: Document 04/11/19 14:51 [facility] (Rec: 04/11/19 16:02 [facility] [id number]) Physical Therapy Assessment Goals shoulder Long-Term Goal (LTG) Pt will have full AROM in order to allow pt to do typical daily activities without inc pain. LTG Duration 04/24/19 Four Impairment No HEP in place Client Representative Goal (LTG) Patient will exhibit independent safe home exercise program LTG Duration achieved progressing as tolerated Three Impairment Impaired sitting tolerance with less than 10 mins Client Representative Goal (LTG) Patient will sit more than 1 hour with no increase in symptoms 12/29-15 min 02/22- pt sits no more than 20 min typically and gets up to stretch out then sits back down as needed LTG Duration 4 wks One Impairment Oswetry low back impairement scale of 34/50 Long-Term Goal (LTG) Patient will have Oswetry low back impairment scale of < 15/ 50 02/22-23/ LTG Duration 4 wks Assessment Summary Assessment Pt able to tolerate more difficult strengthening today with light resistance band. Required signifcant cueing for scap motion and was fatigued after. Improved soft tissue mobility with dec pain after STM. Physical Therapy Plan Frequency and Duration Frequency of Treatment 1-2x/week Duration of Treatment 2 month Plan of Care Start Date 02/22/19 Plan of Care End Date 04/24/19 Next Visit Focus/Plan Next Note Type Treatment Note Next Visit Plan cont to work on strengthening with gentle resistance
--- NOTE | 2019-05-02 13:56 | PT-OP ANOTE ---
Pt very apologetic re: missing appointment today when called re: no show. Pt informed of next scheduled appointment.
--- NOTE | 2019-05-10 15:39 | PT.OTN ---
Current Diagnoses Low back pain (05/10/19) Physical Therapy Treatment Note PT-OP-A Visit Information Start: 07/27/18 08:34 Freq: Status: Active Protocol: Document 05/10/19 14:42 [facility] (Rec: 05/10/19 15:28 [facility] [id number]) Out-Patient Physical Therapy Visit Information Visit Information Visit Type Treatment Note Visit Start Time 14:32 Visit Stop Time 15:22 Total Visit Minutes 50 Visit Number 46 Number of JOURNEYMAN PRESS OPERATOR Visits 0 PT-OP-B Current Condition Start: 07/27/18 08:34 Freq: Status: Active Protocol: Document 12/29/18 16:04 [facility] (Rec: 12/29/18 16:48 [facility] [id number]) Current Condition History of Current Condition Current Complaints LBP & L hip pain; L shoulder History of Current Condition Pt had a fall when skating about a month ago where she hurt her shoulder but it started feeling better. She reports it dislocated and she self relocated it. She cannot sleep on it independtly. Pt reports about 1.5-2 weeks ago and she got a CT and they injected into her shoulder and since then its been worse. Pt report it is like a tooth ache. She does heat every night and has trouble sleeping . Pt reports her back has been doing better but gives out every day at 4pm and she has to lay down on a hard surface to relieve pain. Ant L hip pain is improving. Pt reports some days she is even waking up and her back is feeling good. Pt reports when something stressful happens, pain increases. Prior Treatments and Tests 1. Degenerative joint disease, moderate in glenohumeral joint and mild in acromioclavicular joint. 2. A 3mm intra-articular body in the anteroinferior glenohumeral joint. 3. The inferior glenoid appears irregular suspicious for labral tear. 4. Superior migration of humeral head suspicious for chronic rotator cuff tendon tear Per CT scan Treatment Goals Patient/Caregiver Goals return to typical activity PT-OP-C Subjective Start: 07/27/18 08:34 Freq: Status: Active Protocol: Document 05/10/19 14:42 [facility] (Rec: 05/10/19 15:28 [facility] [id number]) OP-PT Subjective Patient Comments Patient Comments Pt reports she fell asleep with her arm on her husbands shoulder and when she brought her arm back down, it popped and has felt much better. She cont to stretch and back is up and down but she can sit an hour and a half now. Patient Reported Progress Improving PT-OP-G Mobility & Gait Start: 07/27/18 08:34 Freq: Status: Active Protocol: Document 07/26/18 17:30 EA (Rec: 07/27/18 09:34 EA [id number]) OP Gait Assessment Comments Gait Comments No gait deviation noted Stair Climbing Evaluation Comments Stair Climbing Comments No stairs difficulty PT-OP-J Posture/Palpation/Skin Start: 07/27/18 08:34 Freq: Status: Active Protocol: Document 07/26/18 17:30 EA (Rec: 07/27/18 09:34 EA [id number]) Posture Evaluation Comments Posture Comments Good general posture with slight increased in lumbar lordosis Palpation Assessment Location One Palpation Location Both paralumbars, QL Palpation Findings Soft Tissue Tightness,Muscle Guarding,Tenderness Skin Assessment Other Assessments Skin Assessment Comments Palpable electronic device placed to R upper gluteal area PT-OP-K Range of Motion Start: 07/27/18 08:34 Freq: Status: Active Protocol: Document 05/10/19 14:42 [facility] (Rec: 05/10/19 14:42 [facility] [id number]) Shoulder Goniometric Range of Motion Shoulder Left Active Flexion 141 Extension 40 Abduction 151 External Rotation at 0 degrees Abduction 45 Internal Rotation Behind Back (text) sacrum PT-OP-L Special Tests Start: 07/27/18 08:34 Freq: Status: Active Protocol: Document 07/26/18 17:30 EA (Rec: 07/27/18 09:34 EA [id number]) Special Tests Lumbar Spine Special Tests Other- 1 Test Results Neg Gaenlen's Slump Test Results negative Straight Leg Raise Test Results negative Compression Test Results negative PT-OP-M Strength Start: 07/27/18 08:34 Freq: Status: Active Protocol: Document 05/10/19 14:42 [facility] (Rec: 05/10/19 15:28 [facility] [id number]) Shoulder Strength Shoulder Manual Muscle Testing Left Flexion 4 Good Extension 4- Good- Abduction (C5) 3+ Fair+ External Rotation 4 Good Internal Rotation 4 Good Right Flexion 4 Good Extension 4+ Good+ Abduction (C5) 4 Good External Rotation 4+ Good+ Internal Rotation 5 Normal PT-OP-Q Treatments Start: 07/27/18 08:34 Freq: Status: Active Protocol: Document 05/10/19 14:42 [facility] (Rec: 05/10/19 15:28 [facility] [id number]) Therapeutic Exercises Standing Exercises 7 Standing Exercise Name row Side bilateral Equipment Used L1 Reps/Minutes 15 5 Standing Exercise Name IR & ER Side left Equipment Used L1 Reps/Minutes 15 ea 6 Standing Exercise Name scap retraciton Side bilateral Reps/Minutes 15 Comments cues for retraction & depression Manual Therapy Treatment Soft Tissue Mobilization STM L UT/scalenes,lateral shld Body Location L scalenes & pecs & UT & SCM Mobilization Type Myofascial Release,Rolling, Sustained Pressure Intensity/Depth Superficial Comments pt only able to tolerate light pressure 1 Body Location pec Mobilization Type Rolling Intensity/Depth Superficial PT-OP-R Modalities Start: 07/27/18 08:34 Freq: Status: Active Protocol: Document 05/10/19 14:42 [facility] (Rec: 05/10/19 15:28 [facility] [id number]) Hot Pack/Cold Pack Treatment Hot Pack Location L shoulder Patient Position Hooklying Treatment Duration (minutes) 10 Patient Tolerance Good PT-OP-T Assessment and Plan Start: 07/27/18 08:34 Freq: Status: Active Protocol: Document 05/10/19 14:42 [facility] (Rec: 05/10/19 14:42 [facility] [id number]) Physical Therapy Assessment Goals shoulder Training And Development Head Goal (LTG) Pt will have full AROM in order to allow pt to do typical daily activities without inc pain. LTG Duration 07/10/18 Seven Training And Development Head Goal (LTG) Pt will have equal UE strength between UE for pt to return to full typical ADLs and activities with her grandchildren with her pain. LTG Duration 07/10/18 Four Impairment No HEP in place Training And Development Head Goal (LTG) Patient will exhibit independent safe home exercise program LTG Duration achieved progressing as tolerated Three Impairment Impaired sitting tolerance with less than 10 mins Training And Development Head Goal (LTG) Patient will sit more than 1 hour with no increase in symptoms 12/29-15 min 02/22- pt sits no more than 20 min typically and gets up to stretch out then sits back down as needed LTG Duration achieved One Impairment Oswetry low back impairement scale of 34/50 Senior Care Goal (LTG) Patient will have Oswetry low back impairment scale of < 15/ 50 02/22-23/05/10- Pt to fill out form and bring it in next session as she does not have more time. LTG Duration 4 wks Assessment Summary Assessment Pt is improving with her shoulder motion & strength and is improving functional mobility. She is limited in her progress likely d/t not attending regular PT d/t difficulty with scheduling. She is likely to cont to progress with mobility with cont PT and education. She is toleratign strength testing and strengthening. Physical Therapy Plan Frequency and Duration Frequency of Treatment 1x/Week Duration of Treatment 2 months Plan of Care Start Date 05/10/19 Plan of Care End Date 07/10/19 Therapeutic Interventions Therapeutic Interventions Aquatic Therapy,Gait Training, Home Exercise Program,Joint Mobilizations,Manual Therapy, Neuromuscular Re-education, Patient/Caregiver Education, Self-Care/Home Management,Soft Tissue Mobilization,Taping, Therapeutic Activities, Therapeutic Exercises Modalities Cold Pack/Ice Massage,Electric Stimulation,Hot Packs, Infrared Therapy,Ultrasound Next Visit Focus/Plan Next Note Type Treatment Note Next Visit Plan mobs for shoulder motion
--- NOTE | 2019-05-10 15:40 | PT.OPPOC ---
Current Diagnoses Low back pain (05/10/19) Visit Care Team Role Provider Type Tiny Henderson MD Family Provider Physician Primary Care Provider Specialty: Family Practice Address: [address], [facility] [place], [address] Email: [email or web address] JONNY Ospina Attending Provider Advanced Flexographic Press Plate Setter Specialty: Medical Address: [address] [place], [address] Email: [email or web address] Plan Of Care PT-OP-T Assessment and Plan Start: 07/27/18 08:34 Freq: Status: Active Protocol: Document 05/10/19 14:42 [facility] (Rec: 05/10/19 14:42 [facility] [id number]) Physical Therapy Assessment Goals shoulder M[facility] Goal (LTG) Pt will have full AROM in order to allow pt to do typical daily activities without inc pain. LTG Duration 07/10/18 Seven M[facility] Goal (LTG) Pt will have equal UE strength between UE for pt to return to full typical ADLs and activities with her grandchildren with her pain. LTG Duration 07/10/18 Four Impairment No HEP in place M[facility] Goal (LTG) Patient will exhibit independent safe home exercise program LTG Duration achieved progressing as tolerated Three Impairment Impaired sitting tolerance with less than 10 mins Director Of Digital Marketing Goal (LTG) Patient will sit more than 1 hour with no increase in symptoms 12/29-15 min 02/22- pt sits no more than 20 min typically and gets up to stretch out then sits back down as needed LTG Duration achieved One Impairment Oswetry low back impairement scale of 34/50 [facility] Goal (LTG) Patient will have Oswetry low back impairment scale of < 15/ 50 02/22-23/05/10- Pt to fill out form and bring it in next session as she does not have more time. LTG Duration 4 wks Assessment Summary Assessment Pt is improving with her shoulder motion & strength and is improving functional mobility. She is limited in her progress likely d/t not attending regular PT d/t difficulty with scheduling. She is likely to cont to progress with mobility with cont PT and education. She is toleratign strength testing and strengthening. Physical Therapy Plan Frequency and Duration Frequency of Treatment 1x/Week Duration of Treatment 2 months Plan of Care Start Date 05/10/19 Plan of Care End Date 07/10/19 Therapeutic Interventions Therapeutic Interventions Aquatic Therapy,Gait Training, Home Exercise Program,Joint Mobilizations,Manual Therapy, Neuromuscular Re-education, Patient/Caregiver Education, Self-Care/Home Management,Soft Tissue Mobilization,Taping, Therapeutic Activities, Therapeutic Exercises Modalities Cold Pack/Ice Massage,Electric Stimulation,Hot Packs, Infrared Therapy,Ultrasound Next Visit Focus/Plan Next Note Type Treatment Note Next Visit Plan mobs for shoulder motion Plan of Care Dates Plan of Care Start Date 05/10/19 Plan of Care End Date 07/10/19
--- NOTE | 2019-05-23 15:24 | PT-OP ANOTE ---
Pt's called to confirm appointments for her and him and cancelled this appointment last min d/t pt being ill.
--- NOTE | 2019-05-25 18:44 | PT.OTN ---
Current Diagnoses Low back pain (05/25/19) Physical Therapy Treatment Note PT-OP-A Visit Information Start: 07/27/18 08:34 Freq: Status: Active Protocol: Document 05/25/19 15:12 [facility] (Rec: 05/25/19 18:44 [facility] [id number]) Out-Patient Physical Therapy Visit Information Visit Information Visit Type Treatment Note Visit Start Time 15:17 Visit Stop Time 16:14 Total Visit Minutes 56 Visit Number 47 Number of POWER PLANT INSTALLER Visits 0 PT-OP-B Current Condition Start: 07/27/18 08:34 Freq: Status: Active Protocol: Document 12/29/18 16:04 [facility] (Rec: 12/29/18 16:48 [facility] [id number]) Current Condition History of Current Condition Current Complaints LBP & L hip pain; L shoulder History of Current Condition Pt had a fall when skating about a month ago where she hurt her shoulder but it started feeling better. She reports it dislocated and she self relocated it. She cannot sleep on it independtly. Pt reports about 1.5-2 weeks ago and she got a CT and they injected into her shoulder and since then its been worse. Pt report it is like a tooth ache. She does heat every night and has trouble sleeping . Pt reports her back has been doing better but gives out every day at 4pm and she has to lay down on a hard surface to relieve pain. Ant L hip pain is improving. Pt reports some days she is even waking up and her back is feeling good. Pt reports when something stressful happens, pain increases. Prior Treatments and Tests 1. Degenerative joint disease, moderate in glenohumeral joint and mild in acromioclavicular joint. 2. A 3mm intra-articular body in the anteroinferior glenohumeral joint. 3. The inferior glenoid appears irregular suspicious for labral tear. 4. Superior migration of humeral head suspicious for chronic rotator cuff tendon tear Per CT scan Treatment Goals Patient/Caregiver Goals return to typical activity PT-OP-C Subjective Start: 07/27/18 08:34 Freq: Status: Active Protocol: Document 05/25/19 15:12 [facility] (Rec: 05/25/19 18:44 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 Reports some L back pain with palpable area of her back that appears raised. Reports shoulder is doing well overall . She was sick all week so was not doing her exercises. Patient Reported Progress Improving PT-OP-G Mobility & Gait Start: 07/27/18 08:34 Freq: Status: Active Protocol: Document 07/26/18 17:30 EA (Rec: 07/27/18 09:34 EA [id number]) OP Gait Assessment Comments Gait Comments No gait deviation noted Stair Climbing Evaluation Comments Stair Climbing Comments No stairs difficulty PT-OP-J Posture/Palpation/Skin Start: 07/27/18 08:34 Freq: Status: Active Protocol: Document 07/26/18 17:30 EA (Rec: 07/27/18 09:34 EA [id number]) Posture Evaluation Comments Posture Comments Good general posture with slight increased in lumbar lordosis Palpation Assessment Location One Palpation Location Both paralumbars, QL Palpation Findings Soft Tissue Tightness,Muscle Guarding,Tenderness Skin Assessment Other Assessments Skin Assessment Comments Palpable electronic device placed to R upper gluteal area PT-OP-K Range of Motion Start: 07/27/18 08:34 Freq: Status: Active Protocol: Document 05/10/19 14:42 LR (Rec: 05/10/19 14:42 [facility] [id number]) Shoulder Goniometric Range of Motion Shoulder Left Active Flexion 141 Extension 40 Abduction 151 External Rotation at 0 degrees Abduction 45 Internal Rotation Behind Back (text) sacrum PT-OP-L Special Tests Start: 07/27/18 08:34 Freq: Status: Active Protocol: Document 07/26/18 17:30 EA (Rec: 07/27/18 09:34 EA [id number]) Special Tests Lumbar Spine Special Tests Other- 1 Test Results Neg Gaenlen's Slump Test Results negative Straight Leg Raise Test Results negative Compression Test Results negative PT-OP-M Strength Start: 07/27/18 08:34 Freq: Status: Active Protocol: Document 05/10/19 14:42 [facility] (Rec: 05/10/19 15:28 [facility] [id number]) Shoulder Strength Shoulder Manual Muscle Testing Left Flexion 4 Good Extension 4- Good- Abduction (C5) 3+ Fair+ External Rotation 4 Good Internal Rotation 4 Good Right Flexion 4 Good Extension 4+ Good+ Abduction (C5) 4 Good External Rotation 4+ Good+ Internal Rotation 5 Normal PT-OP-Q Treatments Start: 07/27/18 08:34 Freq: Status: Active Protocol: Document 05/25/19 15:12 [facility] (Rec: 05/25/19 18:44 [facility] [id number]) Therapeutic Exercises Supine Exercises 1 Supine Exercise Name diaphragmatic breathing Reps/Minutes 5 min Comments focus on belly expansion vs upper ribcage Standing Exercises 2 Standing Exercise Name IR & ER Side left Equipment Used L1 Reps/Minutes 10 ea 1 Standing Exercise Name shoulder row Side bilateral Equipment Used L1 Reps/Minutes 2x10 Manual Therapy Treatment Soft Tissue Mobilization 3 Body Location L pec w/AAROM Habd Joint Mobilizations 3 Joint GH Direction post glide & distraction Self-Care/Home Management Treatment Education Other Education mm of low back anatomy & discussed stretches she currently does to help stretch this area (dana pose, cat camel) PT-OP-R Modalities Start: 07/27/18 08:34 Freq: Status: Active Protocol: Document 05/25/19 15:12 [facility] (Rec: 05/25/19 18:44 [facility] [id number]) Electric Stimulation Electric Stimulation Interferential Current (IFC) Body Location R post and ant brachium Duration (Minutes) 15 Intensity 17 Combined With Heat/Cold Hot Pack PT-OP-T Assessment and Plan Start: 07/27/18 08:34 Freq: Status: Active Protocol: Document 05/25/19 15:12 [facility] (Rec: 05/25/19 18:44 [facility] [id number]) Physical Therapy Assessment Goals shoulder Community Development Planner Goal (LTG) Pt will have full AROM in order to allow pt to do typical daily activities without inc pain. LTG Duration 07/10/18 Seven [facility] Goal (LTG) Pt will have equal UE strength between UE for pt to return to full typical ADLs and activities with her grandchildren with her pain. LTG Duration 07/10/18 Four Impairment No HEP in place [facility] Goal (LTG) Patient will exhibit independent safe home exercise program LTG Duration achieved progressing as tolerated Three Impairment Impaired sitting tolerance with less than 10 mins [facility] Goal (LTG) Patient will sit more than 1 hour with no increase in symptoms 12/29-15 min 02/22- pt sits no more than 20 min typically and gets up to stretch out then sits back down as needed LTG Duration achieved One Impairment Oswetry low back impairement scale of 34/50 Community Development Planner Goal (LTG) Patient will have Oswetry low back impairment scale of < 15/ 50 02/22- 05/10- Pt to fill out form and bring it in next session as she does not have more time. LTG Duration achieved to Assessment Summary Assessment Pt did well with shoulder exercises with min cueing but did have difficulty with diaphragmatic breathing. She is progressing well with therapy at this time and is doing better with movment of UE. She had improved HAbd & 90 /90 ER after treatment Physical Therapy Plan Frequency and Duration Frequency of Treatment 1x/Week Duration of Treatment 2 months Plan of Care Start Date 05/10/19 Plan of Care End Date 07/10/19 Therapeutic Interventions Therapeutic Interventions Aquatic Therapy,Gait Training, Home Exercise Program,Joint Mobilizations,Manual Therapy, Neuromuscular Re-education, Patient/Caregiver Education, Self-Care/Home Management,Soft Tissue Mobilization,Taping, Therapeutic Activities, Therapeutic Exercises Modalities Cold Pack/Ice Massage,Electric Stimulation,Hot Packs, Infrared Therapy,Ultrasound Next Visit Focus/Plan Next Note Type Treatment Note Next Visit Plan mobs for shoulder motion & soft tissue as needed, scapular strenghtening exercises (s/l abd, Habd tbsulma )
--- NOTE | 2019-06-20 14:42 | PT.OTN ---
Current Diagnoses Low back pain (06/20/19) Physical Therapy Treatment Note PT-OP-A Visit Information Start: 07/27/18 08:34 Freq: Status: Active Protocol: Document 06/20/19 13:38 LRN (Rec: 06/20/19 14:42 LRN [id number]) Out-Patient Physical Therapy Visit Information Visit Information Visit Type Treatment Note Visit Start Time 13:38 Visit Stop Time 14:22 Total Visit Minutes 44 Visit Number 48 Number of BATCH ATTENDANT Visits 0 Evaluation Information Evaluation Date 07/26/18 Precautions Precautions new left shoulder dislocation from fall on roller skates about 3 weeks ago PT-OP-B Current Condition Start: 07/27/18 08:34 Freq: Status: Active Protocol: Document 12/29/18 16:04 [facility] (Rec: 12/29/18 16:48 [facility] [id number]) Current Condition History of Current Condition Current Complaints LBP & L hip pain; L shoulder History of Current Condition Pt had a fall when skating about a month ago where she hurt her shoulder but it started feeling better. She reports it dislocated and she self relocated it. She cannot sleep on it independtly. Pt reports about 1.5-2 weeks ago and she got a CT and they injected into her shoulder and since then its been worse. Pt report it is like a tooth ache. She does heat every night and has trouble sleeping . Pt reports her back has been doing better but gives out every day at 4pm and she has to lay down on a hard surface to relieve pain. Ant L hip pain is improving. Pt reports some days she is even waking up and her back is feeling good. Pt reports when something stressful happens, pain increases. Prior Treatments and Tests 1. Degenerative joint disease, moderate in glenohumeral joint and mild in acromioclavicular joint. 2. A 3mm intra-articular body in the anteroinferior glenohumeral joint. 3. The inferior glenoid appears irregular suspicious for labral tear. 4. Superior migration of humeral head suspicious for chronic rotator cuff tendon tear Per CT scan Treatment Goals Patient/Caregiver Goals return to typical activity PT-OP-C Subjective Start: 07/27/18 08:34 Freq: Status: Active Protocol: Document 06/20/19 13:38 LRN (Rec: 06/20/19 14:42 LRN [id number]) OP-PT Subjective Patient Comments Patient Comments States her back started hurting again. Had to lie on the floor for 45' in order to get up and move and come to therapy. She can lie on the floor with the knees flexed , then when straightening the leg she has pain in the L low back and buttock. 9 months ago fell roller skating and dislocated R shoulder and the X-ray Saw Dr Renetta Higginbotham PT-OP-G Mobility & Gait Start: 07/27/18 08:34 Freq: Status: Active Protocol: Document 07/26/18 17:30 EA (Rec: 07/27/18 09:34 EA [id number]) OP Gait Assessment Comments Gait Comments No gait deviation noted Stair Climbing Evaluation Comments Stair Climbing Comments No stairs difficulty PT-OP-J Posture/Palpation/Skin Start: 07/27/18 08:34 Freq: Status: Active Protocol: Document 07/26/18 17:30 EA (Rec: 07/27/18 09:34 EA [id number]) Posture Evaluation Comments Posture Comments Good general posture with slight increased in lumbar lordosis Palpation Assessment Location One Palpation Location Both paralumbars, QL Palpation Findings Soft Tissue Tightness,Muscle Guarding,Tenderness Skin Assessment Other Assessments Skin Assessment Comments Palpable electronic device placed to R upper gluteal area PT-OP-K Range of Motion Start: 07/27/18 08:34 Freq: Status: Active Protocol: Document 05/10/19 14:42 [facility] (Rec: 05/10/19 14:42 [facility] [id number]) Shoulder Goniometric Range of Motion Shoulder Left Active Flexion 141 Extension 40 Abduction 151 External Rotation at 0 degrees Abduction 45 Internal Rotation Behind Back (text) sacrum PT-OP-L Special Tests Start: 07/27/18 08:34 Freq: Status: Active Protocol: Document 07/26/18 17:30 EA (Rec: 07/27/18 09:34 EA [id number]) Special Tests Lumbar Spine Special Tests Other- 1 Test Results Neg Gaenlen's Slump Test Results negative Straight Leg Raise Test Results negative Compression Test Results negative PT-OP-M Strength Start: 07/27/18 08:34 Freq: Status: Active Protocol: Document 05/10/19 14:42 LR (Rec: 05/10/19 15:28 LR [id number]) Shoulder Strength Shoulder Manual Muscle Testing Left Flexion 4 Good Extension 4- Good- Abduction (C5) 3+ Fair+ External Rotation 4 Good Internal Rotation 4 Good Right Flexion 4 Good Extension 4+ Good+ Abduction (C5) 4 Good External Rotation 4+ Good+ Internal Rotation 5 Normal PT-OP-Q Treatments Start: 07/27/18 08:34 Freq: Status: Active Protocol: Document 06/20/19 13:38 LRN (Rec: 06/20/19 14:42 LR [id number]) Therapeutic Exercises Supine Exercises Heel Slides Supine Exercise Name TA w/Heel slides Side bilateral Reps/Minutes 4' Manual Therapy Treatment Soft Tissue Mobilization TFL & Upper gluteal Body Location L TFL & Upper Gluteal Mobilization Type Cross-Friction,Strumming, Sustained Pressure Lumbar paraspinals Body Location Geronimo Lumbar paraspinals Mobilization Type Rolling,Strumming L hip Flexors Body Location L hip Flexors Mobilization Type Cross-Friction,Trigger Point Release Intensity/Depth Moderate Comments Starting in R sidelie, ending in supine Self-Care/Home Management Treatment Education Patient Education Posture Other Education Educated pt in anatomy of pelvis of Iliopsoas and effects on hip/LB. Educated pt in neutral position and use of wall to help identify neutral. Activities Self-Care/Home Management Activities Educated pt in self STM and stretch of Iliopsoas. PT-OP-R Modalities Start: 07/27/18 08:34 Freq: Status: Active Protocol: Document 05/25/19 15:12 [facility] (Rec: 05/25/19 18:44 [facility] [id number]) Electric Stimulation Electric Stimulation Interferential Current (IFC) Body Location R post and ant brachium Duration (Minutes) 15 Intensity 17 Combined With Heat/Cold Hot Pack PT-OP-T Assessment and Plan Start: 07/27/18 08:34 Freq: Status: Active Protocol: Document 06/20/19 13:38 LRN (Rec: 06/20/19 14:42 [facility] [id number]) Physical Therapy Assessment Goals shoulder Rice Farmworker Goal (LTG) Pt will have full AROM in order to allow pt to do typical daily activities without inc pain. LTG Duration 07/10/18 Seven Jail Goal (LTG) Pt will have equal UE strength between UE for pt to return to full typical ADLs and activities with her grandchildren with her pain. LTG Duration 07/10/18 Four Impairment No HEP in place Jail Goal (LTG) Patient will exhibit independent safe home exercise program LTG Duration achieved progressing as tolerated One Impairment Oswetry low back impairement scale of 34/50 Jail Goal (LTG) Patient will have Oswetry low back impairment scale of < 15/ 50 02/22- 05/10- Pt to fill out form and bring it in next session as she does not have more time. LTG Duration achieved to Assessment Summary Assessment Pt had some relief of pain with STM stretching of L Iliopsoas. Pt anxious about having pain. Pt has hardened tissue with tenderness in the abdominal region below the rib on the right. Physical Therapy Plan Frequency and Duration Frequency of Treatment 1x/Week Duration of Treatment 2 months Plan of Care Start Date 05/10/19 Plan of Care End Date 07/10/19 Next Visit Focus/Plan Next Note Type Treatment Note Next Visit Plan Follow up on L LBP and review self mob/stretch of Iliopsoas. Continue L shoulder rehabilitation. Reassess for DC or extending POC.
--- NOTE | 2019-06-22 15:10 | PT.OTN ---
Current Diagnoses Low back pain (06/22/19) Physical Therapy Treatment Note PT-OP-A Visit Information Start: 07/27/18 08:34 Freq: Status: Active Protocol: Document 06/22/19 14:03 [facility] (Rec: 06/22/19 15:10 [facility] [id number]) Out-Patient Physical Therapy Visit Information Visit Information Visit Type Progress Note Visit Start Time 13:45 Visit Stop Time 14:45 Total Visit Minutes 60 Visit Number 49 Number of EMISSIONS TESTING AND REPAIR TECHNICIAN Visits 0 PT-OP-B Current Condition Start: 07/27/18 08:34 Freq: Status: Active Protocol: Document 12/29/18 16:04 [facility] (Rec: 12/29/18 16:48 [facility] [id number]) Current Condition History of Current Condition Current Complaints LBP & L hip pain; L shoulder History of Current Condition Pt had a fall when skating about a month ago where she hurt her shoulder but it started feeling better. She reports it dislocated and she self relocated it. She cannot sleep on it independtly. Pt reports about 1.5-2 weeks ago and she got a CT and they injected into her shoulder and since then its been worse. Pt report it is like a tooth ache. She does heat every night and has trouble sleeping . Pt reports her back has been doing better but gives out every day at 4pm and she has to lay down on a hard surface to relieve pain. Ant L hip pain is improving. Pt reports some days she is even waking up and her back is feeling good. Pt reports when something stressful happens, pain increases. Prior Treatments and Tests 1. Degenerative joint disease, moderate in glenohumeral joint and mild in acromioclavicular joint. 2. A 3mm intra-articular body in the anteroinferior glenohumeral joint. 3. The inferior glenoid appears irregular suspicious for labral tear. 4. Superior migration of humeral head suspicious for chronic rotator cuff tendon tear Per CT scan Treatment Goals Patient/Caregiver Goals return to typical activity PT-OP-C Subjective Start: 07/27/18 08:34 Freq: Status: Active Protocol: Document 06/22/19 14:03 [facility] (Rec: 06/22/19 15:10 [facility] [id number]) OP-PT Subjective Patient Comments Patient Comments Pt reports L shoulder bothers her with lifting things. She can lay on her back for 45 min and pain goes away completely . She is having an endoscopy coming up. Reports she saw her MD recently who thought she may have a disc issue. Pt reports there was no noted tenderness last time in back but in post & ant hip. PT-OP-G Mobility & Gait Start: 07/27/18 08:34 Freq: Status: Active Protocol: Document 07/26/18 17:30 EA (Rec: 07/27/18 09:34 EA [id number]) OP Gait Assessment Comments Gait Comments No gait deviation noted Stair Climbing Evaluation Comments Stair Climbing Comments No stairs difficulty PT-OP-J Posture/Palpation/Skin Start: 07/27/18 08:34 Freq: Status: Active Protocol: Document 07/26/18 17:30 EA (Rec: 07/27/18 09:34 EA [id number]) Posture Evaluation Comments Posture Comments Good general posture with slight increased in lumbar lordosis Palpation Assessment Location One Palpation Location Both paralumbars, QL Palpation Findings Soft Tissue Tightness,Muscle Guarding,Tenderness Skin Assessment Other Assessments Skin Assessment Comments Palpable electronic device placed to R upper gluteal area PT-OP-K Range of Motion Start: 07/27/18 08:34 Freq: Status: Active Protocol: Document 06/22/19 13:45 LR (Rec: 06/22/19 14:01 [facility] [id number]) Shoulder Goniometric Range of Motion Shoulder Left Active Flexion 150 Extension 45 Abduction 144 External Rotation at 0 degrees Abduction 41 Internal Rotation Behind Back (text) L5 PT-OP-L Special Tests Start: 07/27/18 08:34 Freq: Status: Active Protocol: Document 07/26/18 17:30 EA (Rec: 07/27/18 09:34 EA [id number]) Special Tests Lumbar Spine Special Tests Other- 1 Test Results Neg Gaenlen's Slump Test Results negative Straight Leg Raise Test Results negative Compression Test Results negative PT-OP-M Strength Start: 07/27/18 08:34 Freq: Status: Active Protocol: Document 06/22/19 13:45 LR (Rec: 06/22/19 14:01 [facility] [id number]) Shoulder Strength Shoulder Manual Muscle Testing Left Flexion 3+ Fair+ Extension 3+ Fair+ Abduction (C5) 3+ Fair+ External Rotation 4 Good Internal Rotation 4 Good Reason Not Measured Pain PT-OP-Q Treatments Start: 07/27/18 08:34 Freq: Status: Active Protocol: Document 06/22/19 14:03 [facility] (Rec: 06/22/19 15:10 [facility] [id number]) Therapeutic Exercises Supine Exercises Heel Slides Supine Exercise Name TA w/Heel slides Side bilateral Reps/Minutes 10 psoas str Supine Exercise Name standing Side left Reps/Minutes 30 sec x2 11 Supine Exercise Name piriformis stretch Side left Reps/Minutes 30sec 10 Supine Exercise Name lat Hs & ITB stretch Side left Reps/Minutes 30 sec 9 Supine Exercise Name SKTC Side bilateral Reps/Minutes 30sec Comments w/opposite LE extended Manual Therapy Treatment Soft Tissue Mobilization TFL & Upper gluteal Body Location L TFL & Upper Gluteal Mobilization Type Cross-Friction,Strumming, Sustained Pressure Intensity/Depth Superficial L hip Flexors Body Location L hip Flexors Mobilization Type Cross-Friction,Trigger Point Release Intensity/Depth Superficial Body Position Supine Self-Care/Home Management Treatment Education Other Education review of self soft tissue, edu of anatomy PT-OP-R Modalities Start: 07/27/18 08:34 Freq: Status: Active Protocol: Document 06/22/19 14:03 [facility] (Rec: 06/22/19 15:10 [facility] [id number]) Hot Pack/Cold Pack Treatment Hot Pack Location low back & L ant hip Patient Position Sidelying Treatment Duration (minutes) 15 PT-OP-T Assessment and Plan Start: 07/27/18 08:34 Freq: Status: Active Protocol: Document 06/22/19 14:03 [facility] (Rec: 06/22/19 15:10 [facility] [id number]) Physical Therapy Assessment Goals shoulder Senior Living Goal (LTG) Pt will have full AROM in order to allow pt to do typical daily activities without inc pain. LTG Duration 08/23/19 Seven Disability Manager Goal (LTG) Pt will have equal UE strength between UE for pt to return to full typical ADLs and activities with her grandchildren with her pain. LTG Duration 08/23/19 Four Impairment No HEP in place Disability Manager Goal (LTG) Patient will exhibit independent safe home exercise program LTG Duration achieved progressing as tolerated Two Senior Living Goal (LTG) Pt will be able to typical daily activities with grandchildren & do homemaking skills without inc pain greater than 2/10 and no longer require 45 min of supine laying rests. LTG Duration 08/23/19 One Impairment Oswetry low back impairement scale of 34/50 Senior Living Goal (LTG) Patient will have Oswetry low back impairment scale of < 15/ 50 02/22-/- Pt to fill out form and bring it in next session as she does not have more time. LTG Duration achieved to prior to recent incident Assessment Summary Assessment Pt as doing well with therapy up to May 25, but had not scheduled appointments between then and Jun 20. She has back tracked recently with progress d/t back pain increasing which seemed to dec trunk stability duirng UE strength testing. She required review of exercises today to be able to do self care re: her pain. She reported feeling much better after session today. Abdomen was palpated today and pain noted around belly button with pressure initially but when PT tested again later, no pain with palpation. SHe is very tender in L hip and noted L sacrum pain with STM to iliacus. Physical Therapy Plan Frequency and Duration Frequency of Treatment 1-2x/Week Duration of Treatment 2 months Plan of Care Start Date 06/22/19 Plan of Care End Date 08/23/19 Therapeutic Interventions Therapeutic Interventions Aquatic Therapy,Gait Training, Home Exercise Program,Joint Mobilizations,Manual Therapy, Neuromuscular Re-education, Patient/Caregiver Education, Self-Care/Home Management,Soft Tissue Mobilization,Taping, Therapeutic Activities, Therapeutic Exercises Modalities Cold Pack/Ice Massage,Electric Stimulation,Hot Packs, Infrared Therapy,Ultrasound Next Visit Focus/Plan Next Note Type Treatment Note Next Visit Plan Review new exercises and stretches, cont to progress core stability
--- NOTE | 2019-06-22 15:10 | PT.OPPOC ---
Current Diagnoses Low back pain (06/22/19) Visit Care Team Role Provider Type Tiny Henderson MD Family Provider Physician Primary Care Provider Specialty: Family Practice Address: [address], [facility] [place], [address] Email: [email or web address] JONNY Ospina Attending Provider Advanced Trial Lawyer Specialty: Medical Address: [address] [place], [address] Email: [email or web address] Plan Of Care PT-OP-T Assessment and Plan Start: 07/27/18 08:34 Freq: Status: Active Protocol: Document 06/22/19 14:03 [facility] (Rec: 06/22/19 15:10 [facility] [id number]) Physical Therapy Assessment Goals shoulder Jail Goal (LTG) Pt will have full AROM in order to allow pt to do typical daily activities without inc pain. LTG Duration 08/23/19 Seven Jail Goal (LTG) Pt will have equal UE strength between UE for pt to return to full typical ADLs and activities with her grandchildren with her pain. LTG Duration 08/23/19 Four Impairment No HEP in place Instrumentation Designer Goal (LTG) Patient will exhibit independent safe home exercise program LTG Duration achieved progressing as tolerated Two Jail Goal (LTG) Pt will be able to typical daily activities with grandchildren & do homemaking skills without inc pain greater than 2/10 and no longer require 45 min of supine laying rests. LTG Duration 08/23/19 One Impairment Oswetry low back impairement scale of 34/50 Instrumentation Designer Goal (LTG) Patient will have Oswetry low back impairment scale of < 15/ 50 02/22- 05/10- Pt to fill out form and bring it in next session as she does not have more time. LTG Duration achieved to 9/50 prior to recent incident Assessment Summary Assessment Pt as doing well with therapy up to May 25, but had not scheduled appointments between and Jun 20. She has back tracked recently with progress d/t back pain increasing which seemed to dec trunk stability duirng UE strength testing. She required review of exercises today to be able to do self care re: her pain. She reported feeling much better after session today. Abdomen was palpated today and pain noted around belly button with pressure initially but when PT tested again later, no pain with palpation. SHe is very tender in L hip and noted L sacrum pain with STM to iliacus. Physical Therapy Plan Frequency and Duration Frequency of Treatment 1-2x/Week Duration of Treatment 2 months Plan of Care Start Date 06/22/19 Plan of Care End Date 08/23/19 Therapeutic Interventions Therapeutic Interventions Aquatic Therapy,Gait Training, Home Exercise Program,Joint Mobilizations,Manual Therapy, Neuromuscular Re-education, Patient/Caregiver Education, Self-Care/Home Management,Soft Tissue Mobilization,Taping, Therapeutic Activities, Therapeutic Exercises Modalities Cold Pack/Ice Massage,Electric Stimulation,Hot Packs, Infrared Therapy,Ultrasound Next Visit Focus/Plan Next Note Type Treatment Note Next Visit Plan Review new exercises and stretches, cont to progress core stability Plan of Care Dates Plan of Care Start Date 06/22/19 Plan of Care End Date 08/23/19
--- NOTE | 2019-06-28 09:01 | PT.OTN ---
Current Diagnoses Low back pain (06/28/19) Physical Therapy Treatment Note PT-OP-A Visit Information Start: 07/27/18 08:34 Freq: Status: Active Protocol: Document 06/28/19 08:08 SAK (Rec: 06/28/19 08:59 SAK [id number]) Out-Patient Physical Therapy Visit Information Visit Information Visit Type Treatment Note Visit Start Time 08:15 Visit Stop Time 09:15 Total Visit Minutes 60 Visit Number 50 Number of DIRECTOR CORPORATE SECURITY Visits 0 PT-OP-B Current Condition Start: 07/27/18 08:34 Freq: Status: Active Protocol: Document 12/29/18 16:04 LR (Rec: 12/29/18 16:48 [facility] [id number]) Current Condition History of Current Condition Current Complaints LBP & L hip pain; L shoulder History of Current Condition Pt had a fall when skating about a month ago where she hurt her shoulder but it started feeling better. She reports it dislocated and she self relocated it. She cannot sleep on it independtly. Pt reports about 1.5-2 weeks ago and she got a CT and they injected into her shoulder and since then its been worse. Pt report it is like a tooth ache. She does heat every night and has trouble sleeping . Pt reports her back has been doing better but gives out every day at 4pm and she has to lay down on a hard surface to relieve pain. Ant L hip pain is improving. Pt reports some days she is even waking up and her back is feeling good. Pt reports when something stressful happens, pain increases. Prior Treatments and Tests 1. Degenerative joint disease, moderate in glenohumeral joint and mild in acromioclavicular joint. 2. A 3mm intra-articular body in the anteroinferior glenohumeral joint. 3. The inferior glenoid appears irregular suspicious for labral tear. 4. Superior migration of humeral head suspicious for chronic rotator cuff tendon tear Per CT scan Treatment Goals Patient/Caregiver Goals return to typical activity PT-OP-C Subjective Start: 07/27/18 08:34 Freq: Status: Active Protocol: Document 06/28/19 08:08 SAK (Rec: 06/28/19 08:59 SAK [id number]) OP-PT Subjective Patient Comments Patient Comments Reports feeling better than she has for awhile. Has tried to use standing exercise machine at home but hasn't tolerated well. Reports good compliance to HEP. PT-OP-G Mobility & Gait Start: 07/27/18 08:34 Freq: Status: Active Protocol: Document 07/26/18 17:30 EA (Rec: 07/27/18 09:34 EA [id number]) OP Gait Assessment Comments Gait Comments No gait deviation noted Stair Climbing Evaluation Comments Stair Climbing Comments No stairs difficulty PT-OP-J Posture/Palpation/Skin Start: 07/27/18 08:34 Freq: Status: Active Protocol: Document 07/26/18 17:30 EA (Rec: 07/27/18 09:34 EA [id number]) Posture Evaluation Comments Posture Comments Good general posture with slight increased in lumbar lordosis Palpation Assessment Location One Palpation Location Both paralumbars, QL Palpation Findings Soft Tissue Tightness,Muscle Guarding,Tenderness Skin Assessment Other Assessments Skin Assessment Comments Palpable electronic device placed to R upper gluteal area PT-OP-K Range of Motion Start: 07/27/18 08:34 Freq: Status: Active Protocol: Document 06/22/19 13:45 LR (Rec: 06/22/19 14:01 [facility] [id number]) Shoulder Goniometric Range of Motion Shoulder Left Active Flexion 150 Extension 45 Abduction 144 External Rotation at 0 degrees Abduction 41 Internal Rotation Behind Back (text) L5 PT-OP-L Special Tests Start: 07/27/18 08:34 Freq: Status: Active Protocol: Document 07/26/18 17:30 EA (Rec: 07/27/18 09:34 EA [id number]) Special Tests Lumbar Spine Special Tests Other- 1 Test Results Neg Gaenlen's Slump Test Results negative Straight Leg Raise Test Results negative Compression Test Results negative PT-OP-M Strength Start: 07/27/18 08:34 Freq: Status: Active Protocol: Document 06/22/19 13:45 [facility] (Rec: 06/22/19 14:01 [facility] [id number]) Shoulder Strength Shoulder Manual Muscle Testing Left Flexion 3+ Fair+ Extension 3+ Fair+ Abduction (C5) 3+ Fair+ External Rotation 4 Good Internal Rotation 4 Good Reason Not Measured Pain PT-OP-Q Treatments Start: 07/27/18 08:34 Freq: Status: Active Protocol: Document 06/28/19 08:08 SAK (Rec: 06/28/19 08:59 [facility] [id number]) Cardio Equipment Recumbent Stepper (Sci-Fit) Duration (Minutes) 7 Resistance 1.0 Seat Position 11 Therapeutic Exercises Supine Exercises gluteal sets Supine Exercise Name sruthi and unil Reps/Minutes 5x Heel Slides Supine Exercise Name TA w/Heel slides Side bilateral Reps/Minutes 10 psoas str Supine Exercise Name standing Side left Reps/Minutes 30 sec x2 11 Supine Exercise Name piriformis stretch Side left Reps/Minutes 30sec 10 Supine Exercise Name lat Hs & ITB stretch Side left Reps/Minutes 30 sec 9 Supine Exercise Name SKTC Side bilateral Reps/Minutes 30sec Comments w/opposite LE extended Manual Therapy Treatment Soft Tissue Mobilization TFL & Upper gluteal Body Location L TFL & Upper Gluteal Mobilization Type Cross-Friction,Strumming, Sustained Pressure Intensity/Depth Superficial L hip Flexors Body Location L hip Flexors Mobilization Type Cross-Friction,Trigger Point Release Intensity/Depth Superficial Body Position Supine PT-OP-R Modalities Start: 07/27/18 08:34 Freq: Status: Active Protocol: Document 06/28/19 08:08 [facility] (Rec: 06/28/19 08:59 [facility] [id number]) Hot Pack/Cold Pack Treatment Hot Pack Location low back & L ant hip Patient Position Sidelying Treatment Duration (minutes) 15 PT-OP-T Assessment and Plan Start: 07/27/18 08:34 Freq: Status: Active Protocol: Document 06/28/19 08:08 [facility] (Rec: 06/28/19 08:59 [facility] [id number]) Physical Therapy Assessment Goals shoulder [facility] Goal (LTG) Pt will have full AROM in order to allow pt to do typical daily activities without inc pain. LTG Duration 08/23/19 Seven [facility] Goal (LTG) Pt will have equal UE strength between UE for pt to return to full typical ADLs and activities with her grandchildren with her pain. LTG Duration 08/23/19 Four Impairment No HEP in place [facility] Goal (LTG) Patient will exhibit independent safe home exercise program LTG Duration achieved progressing as tolerated Two [facility] Goal (LTG) Pt will be able to typical daily activities with grandchildren & do homemaking skills without inc pain greater than 2/10 and no longer require 45 min of supine laying rests. LTG Duration 08/23/19 One Impairment Oswetry low back impairement scale of 34/50 [facility] Goal (LTG) Patient will have Oswetry low back impairment scale of < 15/ 50 02/22- 05/10- Pt to fill out form and bring it in next session as she does not have more time. LTG Duration achieved to prior to recent incident Assessment Summary Assessment Improved exercise tolerance today on Sci-Fit despite initial reluctance. Needs mod verbal and manual cues for core activation with ther ex. Leg length equal today. Physical Therapy Plan Frequency and Duration Frequency of Treatment 1-2x/Week Duration of Treatment 2 months Plan of Care Start Date 06/22/19 Plan of Care End Date 08/23/19 Therapeutic Interventions Therapeutic Interventions Aquatic Therapy,Gait Training, Home Exercise Program,Joint Mobilizations,Manual Therapy, Neuromuscular Re-education, Patient/Caregiver Education, Self-Care/Home Management,Soft Tissue Mobilization,Taping, Therapeutic Activities, Therapeutic Exercises Modalities Cold Pack/Ice Massage,Electric Stimulation,Hot Packs, Infrared Therapy,Ultrasound Next Visit Focus/Plan Next Note Type Treatment Note Next Visit Plan cont to progress core stability
--- NOTE | 2019-06-30 09:54 | PT.OTN ---
Current Diagnoses Low back pain (06/30/19) Physical Therapy Treatment Note PT-OP-A Visit Information Start: 07/27/18 08:34 Freq: Status: Active Protocol: Document 06/30/19 07:40 [facility] (Rec: 06/30/19 09:53 [facility] [id number]) Out-Patient Physical Therapy Visit Information Visit Information Visit Type Treatment Note Visit Start Time 08:17 Visit Stop Time 09:00 Total Visit Minutes 43 Visit Number 51 Number of POINTER MACHINE OPERATOR Visits 0 PT-OP-B Current Condition Start: 07/27/18 08:34 Freq: Status: Active Protocol: Document 12/29/18 16:04 [facility] (Rec: 12/29/18 16:48 [facility] [id number]) Current Condition History of Current Condition Current Complaints LBP & L hip pain; L shoulder History of Current Condition Pt had a fall when skating about a month ago where she hurt her shoulder but it started feeling better. She reports it dislocated and she self relocated it. She cannot sleep on it independtly. Pt reports about 1.5-2 weeks ago and she got a CT and they injected into her shoulder and since then its been worse. Pt report it is like a tooth ache. She does heat every night and has trouble sleeping . Pt reports her back has been doing better but gives out every day at 4pm and she has to lay down on a hard surface to relieve pain. Ant L hip pain is improving. Pt reports some days she is even waking up and her back is feeling good. Pt reports when something stressful happens, pain increases. Prior Treatments and Tests 1. Degenerative joint disease, moderate in glenohumeral joint and mild in acromioclavicular joint. 2. A 3mm intra-articular body in the anteroinferior glenohumeral joint. 3. The inferior glenoid appears irregular suspicious for labral tear. 4. Superior migration of humeral head suspicious for chronic rotator cuff tendon tear Per CT scan Treatment Goals Patient/Caregiver Goals return to typical activity PT-OP-C Subjective Start: 07/27/18 08:34 Freq: Status: Active Protocol: Document 06/30/19 07:40 [facility] (Rec: 06/30/19 09:53 [facility] [id number]) OP-PT Subjective Patient Comments Patient Comments Pt reports she was having trouble straightening up so she would do L leg swings and that would help her pain. PT-OP-G Mobility & Gait Start: 07/27/18 08:34 Freq: Status: Active Protocol: Document 07/26/18 17:30 EA (Rec: 07/27/18 09:34 EA [id number]) OP Gait Assessment Comments Gait Comments No gait deviation noted Stair Climbing Evaluation Comments Stair Climbing Comments No stairs difficulty PT-OP-J Posture/Palpation/Skin Start: 07/27/18 08:34 Freq: Status: Active Protocol: Document 07/26/18 17:30 EA (Rec: 07/27/18 09:34 EA [id number]) Posture Evaluation Comments Posture Comments Good general posture with slight increased in lumbar lordosis Palpation Assessment Location One Palpation Location Both paralumbars, QL Palpation Findings Soft Tissue Tightness,Muscle Guarding,Tenderness Skin Assessment Other Assessments Skin Assessment Comments Palpable electronic device placed to R upper gluteal area PT-OP-K Range of Motion Start: 07/27/18 08:34 Freq: Status: Active Protocol: Document 06/22/19 13:45 [facility] (Rec: 06/22/19 14:01 [facility] [id number]) Shoulder Goniometric Range of Motion Shoulder Left Active Flexion 150 Extension 45 Abduction 144 External Rotation at 0 degrees Abduction 41 Internal Rotation Behind Back (text) L5 PT-OP-L Special Tests Start: 07/27/18 08:34 Freq: Status: Active Protocol: Document 07/26/18 17:30 EA (Rec: 07/27/18 09:34 EA [id number]) Special Tests Lumbar Spine Special Tests Other- 1 Test Results Neg Gaenlen's Slump Test Results negative Straight Leg Raise Test Results negative Compression Test Results negative PT-OP-M Strength Start: 07/27/18 08:34 Freq: Status: Active Protocol: Document 06/22/19 13:45 [facility] (Rec: 06/22/19 14:01 [facility] [id number]) Shoulder Strength Shoulder Manual Muscle Testing Left Flexion 3+ Fair+ Extension 3+ Fair+ Abduction (C5) 3+ Fair+ External Rotation 4 Good Internal Rotation 4 Good Reason Not Measured Pain PT-OP-Q Treatments Start: 07/27/18 08:34 Freq: Status: Active Protocol: Document 06/30/19 07:40 LR (Rec: 06/30/19 09:53 [facility] [id number]) Cardio Equipment Recumbent Stepper (Sci-Fit) Duration (Minutes) 7 Resistance 1.0 Seat Position 10 Therapeutic Exercises Sitting Exercises 1 Sitting Exercise Name core stable w/knee, APs, march , pelvic tilt Side bilateral Reps/Minutes 5 ea Standing Exercises psoas str. Standing Exercise Name stretch Side bilateral Reps/Minutes 30 sec Neuro Re-Education Treatment Other Activities PNF Details ant elevaiton, post depression Comments 1. rhythmic initaition - significant time spent 2. sustained isometrics progressed to LE movements 3. COI with pelvic patterns Self-Care/Home Management Treatment Education Other Education pain management info ; diaphragmatic breathing PT-OP-R Modalities Start: 07/27/18 08:34 Freq: Status: Active Protocol: Document 06/28/19 08:08 [facility] (Rec: 06/28/19 08:59 [facility] [id number]) Hot Pack/Cold Pack Treatment Hot Pack Location low back & L ant hip Patient Position Sidelying Treatment Duration (minutes) 15 PT-OP-T Assessment and Plan Start: 07/27/18 08:34 Freq: Status: Active Protocol: Document 06/30/19 07:40 [facility] (Rec: 06/30/19 09:53 [facility] [id number]) Physical Therapy Assessment Goals shoulder Mcc Goal (LTG) Pt will have full AROM in order to allow pt to do typical daily activities without inc pain. LTG Duration 08/23/19 Seven Mcc Goal (LTG) Pt will have equal UE strength between UE for pt to return to full typical ADLs and activities with her grandchildren with her pain. LTG Duration 08/23/19 Four Impairment No HEP in place Mcc Goal (LTG) Patient will exhibit independent safe home exercise program LTG Duration achieved progressing as tolerated Two Mcc Goal (LTG) Pt will be able to typical daily activities with grandchildren & do homemaking skills without inc pain greater than 2/10 and no longer require 45 min of supine laying rests. LTG Duration 08/23/19 One Impairment Oswetry low back impairement scale of 34/50 Mcc Goal (LTG) Patient will have Oswetry low back impairment scale of < 15/ 50 02/22-23/05/10- Pt to fill out form and bring it in next session as she does not have more time. LTG Duration achieved to 50 prior to recent incident Assessment Summary Assessment Pt improved with performance of hip flexor stretch. She required cuieng for maintaining neutral core. She improved with gait and felt relief with pelvic PNF patterns. Physical Therapy Plan Frequency and Duration Frequency of Treatment 1-2x/Week Duration of Treatment 2 months Plan of Care Start Date 06/22/19 Plan of Care End Date 08/23/19 Therapeutic Interventions Therapeutic Interventions Aquatic Therapy,Gait Training, Home Exercise Program,Joint Mobilizations,Manual Therapy, Neuromuscular Re-education, Patient/Caregiver Education, Self-Care/Home Management,Soft Tissue Mobilization,Taping, Therapeutic Activities, Therapeutic Exercises Modalities Cold Pack/Ice Massage,Electric Stimulation,Hot Packs, Infrared Therapy,Ultrasound Next Visit Focus/Plan Next Note Type Treatment Note Next Visit Plan cont to progress core stability & stretching as tolerated; work on shoulder stability
--- NOTE | 2019-07-04 15:28 | PT.OTN ---
Current Diagnoses Low back pain (07/04/19) Physical Therapy Treatment Note PT-OP-A Visit Information Start: 07/27/18 08:34 Freq: Status: Active Protocol: Document 07/04/19 15:15 [facility] (Rec: 07/04/19 15:27 [facility] [id number]) Out-Patient Physical Therapy Visit Information Visit Information Visit Type Treatment Note Visit Start Time 14:31 Visit Stop Time 15:25 Total Visit Minutes 54 Visit Number 52 Number of P[employer] Visits 0 PT-OP-B Current Condition Start: 07/27/18 08:34 Freq: Status: Active Protocol: Document 12/29/18 16:04 [facility] (Rec: 12/29/18 16:48 [facility] [id number]) Current Condition History of Current Condition Current Complaints LBP & L hip pain; L shoulder History of Current Condition Pt had a fall when skating about a month ago where she hurt her shoulder but it started feeling better. She reports it dislocated and she self relocated it. She cannot sleep on it independtly. Pt reports about 1.5-2 weeks ago and she got a CT and they injected into her shoulder and since then its been worse. Pt report it is like a tooth ache. She does heat every night and has trouble sleeping . Pt reports her back has been doing better but gives out every day at 4pm and she has to lay down on a hard surface to relieve pain. Ant L hip pain is improving. Pt reports some days she is even waking up and her back is feeling good. Pt reports when something stressful happens, pain increases. Prior Treatments and Tests 1. Degenerative joint disease, moderate in glenohumeral joint and mild in acromioclavicular joint. 2. A 3mm intra-articular body in the anteroinferior glenohumeral joint. 3. The inferior glenoid appears irregular suspicious for labral tear. 4. Superior migration of humeral head suspicious for chronic rotator cuff tendon tear Per CT scan Treatment Goals Patient/Caregiver Goals return to typical activity PT-OP-C Subjective Start: 07/27/18 08:34 Freq: Status: Active Protocol: Document 07/04/19 15:15 [facility] (Rec: 07/04/19 15:27 [facility] [id number]) OP-PT Subjective Patient Comments Patient Comments Pt reports difficulty getting out of bathtub. Reports feel slike she is weaker. note she thinks her back got aggrevated [place] and having to suddenly turn to get the dog and caught her foot the day before the pain started. PT-OP-G Mobility & Gait Start: 07/27/18 08:34 Freq: Status: Active Protocol: Document 07/26/18 17:30 EA (Rec: 07/27/18 09:34 EA [id number]) OP Gait Assessment Comments Gait Comments No gait deviation noted Stair Climbing Evaluation Comments Stair Climbing Comments No stairs difficulty PT-OP-J Posture/Palpation/Skin Start: 07/27/18 08:34 Freq: Status: Active Protocol: Document 07/26/18 17:30 EA (Rec: 07/27/18 09:34 EA [id number]) Posture Evaluation Comments Posture Comments Good general posture with slight increased in lumbar lordosis Palpation Assessment Location One Palpation Location Both paralumbars, QL Palpation Findings Soft Tissue Tightness,Muscle Guarding,Tenderness Skin Assessment Other Assessments Skin Assessment Comments Palpable electronic device placed to R upper gluteal area PT-OP-K Range of Motion Start: 07/27/18 08:34 Freq: Status: Active Protocol: Document 06/22/19 13:45 LR (Rec: 06/22/19 14:01 [facility] [id number]) Shoulder Goniometric Range of Motion Shoulder Left Active Flexion 150 Extension 45 Abduction 144 External Rotation at 0 degrees Abduction 41 Internal Rotation Behind Back (text) L5 PT-OP-L Special Tests Start: 07/27/18 08:34 Freq: Status: Active Protocol: Document 07/26/18 17:30 EA (Rec: 07/27/18 09:34 EA [id number]) Special Tests Lumbar Spine Special Tests Other- 1 Test Results Neg Gaenlen's Slump Test Results negative Straight Leg Raise Test Results negative Compression Test Results negative PT-OP-M Strength Start: 07/27/18 08:34 Freq: Status: Active Protocol: Document 06/22/19 13:45 LR (Rec: 06/22/19 14:01 [facility] [id number]) Shoulder Strength Shoulder Manual Muscle Testing Left Flexion 3+ Fair+ Extension 3+ Fair+ Abduction (C5) 3+ Fair+ External Rotation 4 Good Internal Rotation 4 Good Reason Not Measured Pain PT-OP-Q Treatments Start: 07/27/18 08:34 Freq: Status: Active Protocol: Document 07/04/19 15:15 [facility] (Rec: 07/04/19 15:27 [facility] [id number]) Therapeutic Exercises Standing Exercises 7 Standing Exercise Name squat Side bilateral Reps/Minutes 1. at rail x10 2. w.arms overhead [id number] 5 Standing Exercise Name lunges Side bilateral Reps/Minutes 10 6 Standing Exercise Name balance board Comments 1.wt shifts sideways &fwd/back 2.balancing both directions Manual Therapy Treatment Soft Tissue Mobilization 3 Body Location glutes L Mobilization Type Rolling,Sustained Pressure Joint Mobilizations 3 Joint sacrum Direction L UPA & caudal glide w/deep breathing PT-OP-R Modalities Start: 07/27/18 08:34 Freq: Status: Active Protocol: Document 07/04/19 15:15 [facility] (Rec: 07/04/19 15:27 [facility] [id number]) Hot Pack/Cold Pack Treatment Hot Pack Location low back Patient Position Sidelying Treatment Duration (minutes) 15 PT-OP-T Assessment and Plan Start: 07/27/18 08:34 Freq: Status: Active Protocol: Document 07/04/19 15:15 [facility] (Rec: 07/04/19 15:27 [facility] [id number]) Physical Therapy Assessment Goals shoulder Detention Goal (LTG) Pt will have full AROM in order to allow pt to do typical daily activities without inc pain. LTG Duration 08/23/19 Seven Detention Goal (LTG) Pt will have equal UE strength between UE for pt to return to full typical ADLs and activities with her grandchildren with her pain. LTG Duration 08/23/19 Four Impairment No HEP in place Detention Goal (LTG) Patient will exhibit independent safe home exercise program LTG Duration achieved progressing as tolerated Two Algorithm Developer Goal (LTG) Pt will be able to typical daily activities with grandchildren & do homemaking skills without inc pain greater than 2/10 and no longer require 45 min of supine laying rests. LTG Duration 08/23/19 One Impairment Oswetry low back impairement scale of 34/50 Algorithm Developer Goal (LTG) Patient will have Oswetry low back impairment scale of < 15/ 50 02/22-23/50 05/10- Pt to fill out form and bring it in next session as she does not have more time. LTG Duration achieved to prior to recent incident Assessment Summary Assessment Pt able to tolerate all exercises without inc pain especially when cued for core activiation. She was able to tolerate balance board well with some instability, but overall was able to self control. Physical Therapy Plan Frequency and Duration Frequency of Treatment 1-2x/Week Duration of Treatment 2 months Plan of Care Start Date 06/22/19 Plan of Care End Date 08/23/19 Therapeutic Interventions Therapeutic Interventions Aquatic Therapy,Gait Training, Home Exercise Program,Joint Mobilizations,Manual Therapy, Neuromuscular Re-education, Patient/Caregiver Education, Self-Care/Home Management,Soft Tissue Mobilization,Taping, Therapeutic Activities, Therapeutic Exercises Modalities Cold Pack/Ice Massage,Electric Stimulation,Hot Packs, Infrared Therapy,Ultrasound Next Visit Focus/Plan Next Note Type Treatment Note Next Visit Plan work on standing core stability on uneven surfaces & standing exercises encorporating core; work on shoulder stability
--- NOTE | 2019-07-07 15:06 | PT.OTN ---
Current Diagnoses Low back pain (07/07/19) Physical Therapy Treatment Note PT-OP-A Visit Information Start: 07/27/18 08:34 Freq: Status: Active Protocol: Document 07/07/19 14:24 LRN (Rec: 07/07/19 15:05 LRN [id number]) Out-Patient Physical Therapy Visit Information Visit Information Visit Type Treatment Note Visit Start Time 14:24 Visit Stop Time 15:10 Total Visit Minutes 46 Visit Number 53 Number of CRITICAL CARE NURSE SPECIALIST Visits 0 PT-OP-B Current Condition Start: 07/27/18 08:34 Freq: Status: Active Protocol: Document 12/29/18 16:04 LRH (Rec: 12/29/18 16:48 LRH [id number]) Current Condition History of Current Condition Current Complaints LBP & L hip pain; L shoulder History of Current Condition Pt had a fall when skating about a month ago where she hurt her shoulder but it started feeling better. She reports it dislocated and she self relocated it. She cannot sleep on it independtly. Pt reports about 1.5-2 weeks ago and she got a CT and they injected into her shoulder and since then its been worse. Pt report it is like a tooth ache. She does heat every night and has trouble sleeping . Pt reports her back has been doing better but gives out every day at 4pm and she has to lay down on a hard surface to relieve pain. Ant L hip pain is improving. Pt reports some days she is even waking up and her back is feeling good. Pt reports when something stressful happens, pain increases. Prior Treatments and Tests 1. Degenerative joint disease, moderate in glenohumeral joint and mild in acromioclavicular joint. 2. A 3mm intra-articular body in the anteroinferior glenohumeral joint. 3. The inferior glenoid appears irregular suspicious for labral tear. 4. Superior migration of humeral head suspicious for chronic rotator cuff tendon tear Per CT scan Treatment Goals Patient/Caregiver Goals return to typical activity PT-OP-C Subjective Start: 07/27/18 08:34 Freq: Status: Active Protocol: Document 07/07/19 14:24 LRN (Rec: 07/07/19 15:05 LRN [id number]) OP-PT Subjective Patient Comments Patient Comments States she didn't have as severe of pain coming into the clinic, but after sitting she is in a lot of pain. Having trouble walking. busy day so far, went to [place] with the kids Hot on L QL and into buttocks. Has been doing ankle ex's. PT-OP-G Mobility & Gait Start: 07/27/18 08:34 Freq: Status: Active Protocol: Document 07/26/18 17:30 EA (Rec: 07/27/18 09:34 EA [id number]) OP Gait Assessment Comments Gait Comments No gait deviation noted Stair Climbing Evaluation Comments Stair Climbing Comments No stairs difficulty PT-OP-J Posture/Palpation/Skin Start: 07/27/18 08:34 Freq: Status: Active Protocol: Document 07/26/18 17:30 EA (Rec: 07/27/18 09:34 EA [id number]) Posture Evaluation Comments Posture Comments Good general posture with slight increased in lumbar lordosis Palpation Assessment Location One Palpation Location Both paralumbars, QL Palpation Findings Soft Tissue Tightness,Muscle Guarding,Tenderness Skin Assessment Other Assessments Skin Assessment Comments Palpable electronic device placed to R upper gluteal area PT-OP-K Range of Motion Start: 07/27/18 08:34 Freq: Status: Active Protocol: Document 06/22/19 13:45 LR (Rec: 06/22/19 14:01 [facility] [id number]) Shoulder Goniometric Range of Motion Shoulder Left Active Flexion 150 Extension 45 Abduction 144 External Rotation at 0 degrees Abduction 41 Internal Rotation Behind Back (text) L5 PT-OP-L Special Tests Start: 07/27/18 08:34 Freq: Status: Active Protocol: Document 07/26/18 17:30 EA (Rec: 07/27/18 09:34 EA [id number]) Special Tests Lumbar Spine Special Tests Other- 1 Test Results Neg Gaenlen's Slump Test Results negative Straight Leg Raise Test Results negative Compression Test Results negative PT-OP-M Strength Start: 07/27/18 08:34 Freq: Status: Active Protocol: Document 06/22/19 13:45 LR (Rec: 06/22/19 14:01 [facility] [id number]) Shoulder Strength Shoulder Manual Muscle Testing Left Flexion 3+ Fair+ Extension 3+ Fair+ Abduction (C5) 3+ Fair+ External Rotation 4 Good Internal Rotation 4 Good Reason Not Measured Pain PT-OP-Q Treatments Start: 07/27/18 08:34 Freq: Status: Active Protocol: Document 07/07/19 14:24 LRN (Rec: 07/07/19 15:05 LRN [id number]) Therapeutic Exercises Standing Exercises Wall push ups Standing Exercise Name Standing wall push ups Reps/Minutes 10x 7 Standing Exercise Name squat Side bilateral Reps/Minutes 1. at rail x10 2. w.arms overhead [id number] Manual Therapy Treatment Soft Tissue Mobilization L hip Flexors Body Location L hip Flexors Mobilization Type Cross-Friction Intensity/Depth Superficial Body Position Supine Joint Mobilizations 3 Joint sacrum Direction L UPA & caudal glide w/deep breathing PT-OP-R Modalities Start: 07/27/18 08:34 Freq: Status: Active Protocol: Document 07/07/19 14:24 LRN (Rec: 07/07/19 15:05 LRN [id number]) Hot Pack/Cold Pack Treatment Hot Pack Location low back Patient Position Sidelying Treatment Duration (minutes) 15 PT-OP-T Assessment and Plan Start: 07/27/18 08:34 Freq: Status: Active Protocol: Document 07/07/19 14:24 LRN (Rec: 07/07/19 15:05 LRN [id number]) Physical Therapy Assessment Goals shoulder Retirement Goal (LTG) Pt will have full AROM in order to allow pt to do typical daily activities without inc pain. LTG Duration 08/23/19 Seven Primary Substance Abuse Counselor Goal (LTG) Pt will have equal UE strength between UE for pt to return to full typical ADLs and activities with her grandchildren with her pain. LTG Duration 08/23/19 Four Impairment No HEP in place Primary Substance Abuse Counselor Goal (LTG) Patient will exhibit independent safe home exercise program LTG Duration achieved progressing as tolerated Two Retirement Goal (LTG) Pt will be able to typical daily activities with grandchildren & do homemaking skills without inc pain greater than 2/10 and no longer require 45 min of supine laying rests. LTG Duration 08/23/19 One Impairment Oswetry low back impairement scale of 34/50 Primary Substance Abuse Counselor Goal (LTG) Patient will have Oswetry low back impairment scale of < 15/ 50 02/22-23/50 /- Pt to fill out form and bring it in next session as she does not have more time. LTG Duration achieved to prior to recent incident Assessment Summary Assessment Pain resolved after therapy but pt was very fatigued. Due to flare up from sitting while waiting for PT; standing core ex's on unstable surface was put on hold. Pt will benefit from adding pelvic stab ex's with core ex's. Pt appears to have gotten more relief from upglide of L innominate vs downglide today. Physical Therapy Plan Frequency and Duration Frequency of Treatment 1-2x/Week Duration of Treatment 2 months Plan of Care Start Date 06/22/19 Plan of Care End Date 08/23/19 Next Visit Focus/Plan Next Note Type Treatment Note Next Visit Plan Work on standing core stability on uneven surfaces & standing exercises encorporating core and pelvic floor; work on shoulder stability
--- NOTE | 2019-07-12 15:25 | PT.OTN ---
Current Diagnoses Low back pain (07/12/19) Physical Therapy Treatment Note PT-OP-A Visit Information Start: 07/27/18 08:34 Freq: Status: Active Protocol: Document 07/12/19 14:40 SP (Rec: 07/12/19 15:41 SP [id number]) Out-Patient Physical Therapy Visit Information Visit Information Visit Type Treatment Note Visit Start Time 14:40 Visit Stop Time 15:25 Total Visit Minutes 45 Visit Number 54 Number of MILL TENDER WARM UP Visits 1 PT-OP-B Current Condition Start: 07/27/18 08:34 Freq: Status: Active Protocol: Document 12/29/18 16:04 LRH (Rec: 12/29/18 16:48 [facility] [id number]) Current Condition History of Current Condition Current Complaints LBP & L hip pain; L shoulder History of Current Condition Pt had a fall when skating about a month ago where she hurt her shoulder but it started feeling better. She reports it dislocated and she self relocated it. She cannot sleep on it independtly. Pt reports about 1.5-2 weeks ago and she got a CT and they injected into her shoulder and since then its been worse. Pt report it is like a tooth ache. She does heat every night and has trouble sleeping . Pt reports her back has been doing better but gives out every day at 4pm and she has to lay down on a hard surface to relieve pain. Ant L hip pain is improving. Pt reports some days she is even waking up and her back is feeling good. Pt reports when something stressful happens, pain increases. Prior Treatments and Tests 1. Degenerative joint disease, moderate in glenohumeral joint and mild in acromioclavicular joint. 2. A 3mm intra-articular body in the anteroinferior glenohumeral joint. 3. The inferior glenoid appears irregular suspicious for labral tear. 4. Superior migration of humeral head suspicious for chronic rotator cuff tendon tear Per CT scan Treatment Goals Patient/Caregiver Goals return to typical activity PT-OP-C Subjective Start: 07/27/18 08:34 Freq: Status: Active Protocol: Document 07/12/19 14:40 SP (Rec: 07/12/19 15:41 SP [id number]) OP-PT Subjective Patient Comments Patient Comments Pt stated today is a good day. She is wanting to trail a bike that can help move her legs more for strengtheniing to possible purchase at home. PT-OP-G Mobility & Gait Start: 07/27/18 08:34 Freq: Status: Active Protocol: Document 07/26/18 17:30 EA (Rec: 07/27/18 09:34 EA [id number]) OP Gait Assessment Comments Gait Comments No gait deviation noted Stair Climbing Evaluation Comments Stair Climbing Comments No stairs difficulty PT-OP-J Posture/Palpation/Skin Start: 07/27/18 08:34 Freq: Status: Active Protocol: Document 07/26/18 17:30 EA (Rec: 07/27/18 09:34 EA [id number]) Posture Evaluation Comments Posture Comments Good general posture with slight increased in lumbar lordosis Palpation Assessment Location One Palpation Location Both paralumbars, QL Palpation Findings Soft Tissue Tightness,Muscle Guarding,Tenderness Skin Assessment Other Assessments Skin Assessment Comments Palpable electronic device placed to R upper gluteal area PT-OP-K Range of Motion Start: 07/27/18 08:34 Freq: Status: Active Protocol: Document 06/22/19 13:45 LR (Rec: 06/22/19 14:01 [facility] [id number]) Shoulder Goniometric Range of Motion Shoulder Left Active Flexion 150 Extension 45 Abduction 144 External Rotation at 0 degrees Abduction 41 Internal Rotation Behind Back (text) L5 PT-OP-L Special Tests Start: 07/27/18 08:34 Freq: Status: Active Protocol: Document 07/26/18 17:30 EA (Rec: 07/27/18 09:34 EA [id number]) Special Tests Lumbar Spine Special Tests Other- 1 Test Results Neg Gaenlen's Slump Test Results negative Straight Leg Raise Test Results negative Compression Test Results negative PT-OP-M Strength Start: 07/27/18 08:34 Freq: Status: Active Protocol: Document 06/22/19 13:45 LRH (Rec: 06/22/19 14:01 [facility] [id number]) Shoulder Strength Shoulder Manual Muscle Testing Left Flexion 3+ Fair+ Extension 3+ Fair+ Abduction (C5) 3+ Fair+ External Rotation 4 Good Internal Rotation 4 Good Reason Not Measured Pain PT-OP-Q Treatments Start: 07/27/18 08:34 Freq: Status: Active Protocol: Document 07/12/19 14:40 SP (Rec: 07/12/19 15:41 SP [id number]) Cardio Equipment Recumbent Bicycle Duration (Minutes) 6 Resistance 4 Seat Position 3 Therapeutic Exercises Standing Exercises Wall push ups Standing Exercise Name Standing incline push ups Equipment Used rail Reps/Minutes 10x 2 Comments cued PPT and straight trunk 7 Standing Exercise Name squat Side bilateral Reps/Minutes 1. at rail x10 2. w.arms overhead [id number] 4 Standing Exercise Name eccentric squat tap chair Equipment Used chair w/cushion initial x5 then just 18 chair arms across chest Reps/Minutes 2x5 Comments cued hip hinge and feet more under k nees PT-OP-R Modalities Start: 07/27/18 08:34 Freq: Status: Active Protocol: Document 07/07/19 14:24 LRN (Rec: 07/07/19 15:05 LRN [id number]) Hot Pack/Cold Pack Treatment Hot Pack Location low back Patient Position Sidelying Treatment Duration (minutes) 15 PT-OP-T Assessment and Plan Start: 07/27/18 08:34 Freq: Status: Active Protocol: Document 07/12/19 14:40 SP (Rec: 07/12/19 15:41 SP [id number]) Physical Therapy Assessment Goals shoulder Accounting Professional Goal (LTG) Pt will have full AROM in order to allow pt to do typical daily activities without inc pain. LTG Duration 08/23/19 Seven Impairment Patient education Senior Care Goal (LTG) Patient safe and independent with HEP and aquatic exercise program for long-term fitness and pain managment LTG Duration achieved Four Accounting Professional Goal (LTG) Patient will exhibit independent safe home exercise program LTG Duration achieved progressing as tolerated Two Impairment stairs Short Term Goal (STG) up stairs reciprocally w/o pain STG Duration achieved Senior Care Goal (LTG) down stairs reciprocally w/o pain LTG Duration by November 16-achieved One Impairment pain w/ dance,up/down steps reciprocally,rowing machine, squat, walking Short Term Goal (STG) indep with HEP STG Duration 02/18/18-progressing HEP Accounting Professional Goal (LTG) Able to do rec activities without pain LTG Duration achieved-can manage pain if gets it Assessment Summary Assessment Reviewed HEP and increased time education on added recumbent bike to trial and benefits/ proper fit and use for possible purchase at home for more strengthening resistance. Increased challenge of mini squats to eccentric chair taps squats arms across body and inclined pushup with positive results. No adverse affects to ther ex. Physical Therapy Plan Frequency and Duration Frequency of Treatment 1x/Week Duration of Treatment 2 months Plan of Care Start Date 05/10/19 Plan of Care End Date 07/10/19 Therapeutic Interventions Therapeutic Interventions Aquatic Therapy,Gait Training, Home Exercise Program,Joint Mobilizations,Manual Therapy, Neuromuscular Re-education, Patient/Caregiver Education, Self-Care/Home Management,Soft Tissue Mobilization,Taping, Therapeutic Activities, Therapeutic Exercises Modalities Cold Pack/Ice Massage,Electric Stimulation,Hot Packs, Infrared Therapy,Ultrasound Next Visit Focus/Plan Next Note Type Treatment Note Next Visit Plan Assess modifications in eccentrics squats and incline pushups added last tx. Continue per PT POC: GH mobs for shoulder motion & soft tissue as needed, scapular strenghtening exercises (s/l abd, Habd tband )
--- NOTE | 2019-07-21 16:16 | PT.OTN ---
Current Diagnoses Low back pain (07/21/19) Physical Therapy Treatment Note PT-OP-A Visit Information Start: 07/27/18 08:34 Freq: Status: Active Protocol: Document 07/21/19 13:36 LRN (Rec: 07/21/19 14:21 LRN [id number]) Out-Patient Physical Therapy Visit Information Visit Information Visit Type Treatment Note Visit Start Time 13:36 Visit Stop Time 14:31 Total Visit Minutes 55 Visit Number 55 Number of ORACLE APPLICATIONS ANALYST Visits 0 PT-OP-B Current Condition Start: 07/27/18 08:34 Freq: Status: Active Protocol: Document 12/29/18 16:04 LRH (Rec: 12/29/18 16:48 LR [id number]) Current Condition History of Current Condition Current Complaints LBP & L hip pain; L shoulder History of Current Condition Pt had a fall when skating about a month ago where she hurt her shoulder but it started feeling better. She reports it dislocated and she self relocated it. She cannot sleep on it independtly. Pt reports about 1.5-2 weeks ago and she got a CT and they injected into her shoulder and since then its been worse. Pt report it is like a tooth ache. She does heat every night and has trouble sleeping . Pt reports her back has been doing better but gives out every day at 4pm and she has to lay down on a hard surface to relieve pain. Ant L hip pain is improving. Pt reports some days she is even waking up and her back is feeling good. Pt reports when something stressful happens, pain increases. Prior Treatments and Tests 1. Degenerative joint disease, moderate in glenohumeral joint and mild in acromioclavicular joint. 2. A 3mm intra-articular body in the anteroinferior glenohumeral joint. 3. The inferior glenoid appears irregular suspicious for labral tear. 4. Superior migration of humeral head suspicious for chronic rotator cuff tendon tear Per CT scan Treatment Goals Patient/Caregiver Goals return to typical activity PT-OP-C Subjective Start: 07/27/18 08:34 Freq: Status: Active Protocol: Document 07/21/19 13:36 LRN (Rec: 07/21/19 14:21 LRN [id number]) OP-PT Subjective Patient Comments Patient Comments Doing push up off the wall 10- 15 and doing squats. Had pain in middle of night, got up and did squats and then felt better. Today is the first day after sleeping on a new mattress and wasn't too bad. c/o L lateral and upper shoulder pain today rated 5/10 (with C.tx rated 3/10). PT-OP-G Mobility & Gait Start: 07/27/18 08:34 Freq: Status: Active Protocol: Document 07/26/18 17:30 EA (Rec: 07/27/18 09:34 EA [id number]) OP Gait Assessment Comments Gait Comments No gait deviation noted Stair Climbing Evaluation Comments Stair Climbing Comments No stairs difficulty PT-OP-J Posture/Palpation/Skin Start: 07/27/18 08:34 Freq: Status: Active Protocol: Document 07/26/18 17:30 EA (Rec: 07/27/18 09:34 EA [id number]) Posture Evaluation Comments Posture Comments Good general posture with slight increased in lumbar lordosis Palpation Assessment Location One Palpation Location Both paralumbars, QL Palpation Findings Soft Tissue Tightness,Muscle Guarding,Tenderness Skin Assessment Other Assessments Skin Assessment Comments Palpable electronic device placed to R upper gluteal area PT-OP-K Range of Motion Start: 07/27/18 08:34 Freq: Status: Active Protocol: Document 06/22/19 13:45 LR (Rec: 06/22/19 14:01 [facility] [id number]) Shoulder Goniometric Range of Motion Shoulder Left Active Flexion 150 Extension 45 Abduction 144 External Rotation at 0 degrees Abduction 41 Internal Rotation Behind Back (text) L5 PT-OP-L Special Tests Start: 07/27/18 08:34 Freq: Status: Active Protocol: Document 07/26/18 17:30 EA (Rec: 07/27/18 09:34 EA [id number]) Special Tests Lumbar Spine Special Tests Other- 1 Test Results Neg Gaenlen's Slump Test Results negative Straight Leg Raise Test Results negative Compression Test Results negative PT-OP-M Strength Start: 07/27/18 08:34 Freq: Status: Active Protocol: Document 06/22/19 13:45 LR (Rec: 06/22/19 14:01 [facility] [id number]) Shoulder Strength Shoulder Manual Muscle Testing Left Flexion 3+ Fair+ Extension 3+ Fair+ Abduction (C5) 3+ Fair+ External Rotation 4 Good Internal Rotation 4 Good Reason Not Measured Pain PT-OP-Q Treatments Start: 07/27/18 08:34 Freq: Status: Active Protocol: Document 07/21/19 13:36 LRN (Rec: 07/21/19 14:21 LRN [id number]) Therapeutic Exercises Supine Exercises Deep C. Neck Flexors Supine Exercise Name Elongation of neck Reps/Minutes 10S hold x 10 Standing Exercises Ecc Squat Standing Exercise Name Eccentric Squat Wall push ups Standing Exercise Name Standing incline push ups Equipment Used wall & counter, rail Reps/Minutes 10x each Comments cued PPT and straight trunk 4 Standing Exercise Name Ecc Squat holding onto railing , 90/90 squat Equipment Used 10 x 2 Manual Therapy Treatment Soft Tissue Mobilization STM L UT/scalenes,lateral shld Body Location L Deltoid, UT & Supraspinatus Mobilization Type Strumming,Sustained Pressure Intensity/Depth Moderate Comments In Sitting & Supine Manual Traction Cervical Details Manual C. tx: Sit & Supine Reps/Duration 2' & 8' PT-OP-R Modalities Start: 07/27/18 08:34 Freq: Status: Active Protocol: Document 07/21/19 13:36 LRN (Rec: 07/21/19 14:24 LRN [id number]) Hot Pack/Cold Pack Treatment Hot Pack Location [place] shoulder joints Patient Position Hooklying Treatment Duration (minutes) 10 Patient Tolerance Good PT-OP-T Assessment and Plan Start: 07/27/18 08:34 Freq: Status: Active Protocol: Document 07/21/19 13:36 LRN (Rec: 07/21/19 14:21 LRN [id number]) Physical Therapy Assessment Goals shoulder Care Home Goal (LTG) Pt will have full AROM in order to allow pt to do typical daily activities without inc pain. LTG Duration 08/23/19 Seven Impairment Patient education Supervisor Laundry Goal (LTG) Patient safe and independent with HEP and aquatic exercise program for long-term fitness and pain managment LTG Duration achieved Four Supervisor Laundry Goal (LTG) Patient will exhibit independent safe home exercise program LTG Duration achieved progressing as tolerated Two Impairment stairs Short Term Goal (STG) up stairs reciprocally w/o pain STG Duration achieved Supervisor Laundry Goal (LTG) down stairs reciprocally w/o pain LTG Duration by November 16-achieved One Impairment pain w/ dance,up/down steps reciprocally,rowing machine, squat, walking Short Term Goal (STG) indep with HEP STG Duration 02/18/18-progressing HEP Care Home Goal (LTG) Able to do rec activities without pain LTG Duration achieved-can manage pain if gets it Assessment Summary Assessment Review of ecc squats holding onto counter and bar was with good form. Pt had + response to 90/90 Squats at home when she woke with LBP and did some squats resulting in a reduction pain. Pt needed review of inclined pushups for good form. Physical Therapy Plan Frequency and Duration Frequency of Treatment 1x/Week Duration of Treatment 2 months Plan of Care Start Date 05/10/19 Plan of Care End Date 07/10/19 Next Visit Focus/Plan Next Note Type Treatment Note Next Visit Plan Retry recumbent bike next visit and assess ROM goals for shoulders. Shoulder sta is needed for pt to be able to sleep on her painful shoulder side. Continue per PT POC: GH mobs for shoulder motion & soft tissue as needed, scapular strenghtening exercises (s/l abd, Habd tband )
--- NOTE | 2019-07-27 12:16 | PT.OTN ---
Current Diagnoses Low back pain (07/27/19) Physical Therapy Treatment Note PT-OP-A Visit Information Start: 07/27/18 08:34 Freq: Status: Active Protocol: Document 07/27/19 09:48 [facility] (Rec: 07/27/19 12:14 [facility] [id number]) Out-Patient Physical Therapy Visit Information Visit Information Visit Type Treatment Note Visit Start Time 09:49 Visit Stop Time 10:37 Total Visit Minutes 48 Visit Number 56 Number of CHAIN HOOKER Visits 0 PT-OP-B Current Condition Start: 07/27/18 08:34 Freq: Status: Active Protocol: Document 12/29/18 16:04 [facility] (Rec: 12/29/18 16:48 [facility] [id number]) Current Condition History of Current Condition Current Complaints LBP & L hip pain; L shoulder History of Current Condition Pt had a fall when skating about a month ago where she hurt her shoulder but it started feeling better. She reports it dislocated and she self relocated it. She cannot sleep on it independtly. Pt reports about 1.5-2 weeks ago and she got a CT and they injected into her shoulder and since then its been worse. Pt report it is like a tooth ache. She does heat every night and has trouble sleeping . Pt reports her back has been doing better but gives out every day at 4pm and she has to lay down on a hard surface to relieve pain. Ant L hip pain is improving. Pt reports some days she is even waking up and her back is feeling good. Pt reports when something stressful happens, pain increases. Prior Treatments and Tests 1. Degenerative joint disease, moderate in glenohumeral joint and mild in acromioclavicular joint. 2. A 3mm intra-articular body in the anteroinferior glenohumeral joint. 3. The inferior glenoid appears irregular suspicious for labral tear. 4. Superior migration of humeral head suspicious for chronic rotator cuff tendon tear Per CT scan Treatment Goals Patient/Caregiver Goals return to typical activity PT-OP-C Subjective Start: 07/27/18 08:34 Freq: Status: Active Protocol: Document 07/27/19 09:48 [facility] (Rec: 07/27/19 12:14 [facility] [id number]) OP-PT Subjective Patient Comments Patient Comments Pt reports compliance with exercises. FEels her back is doing better except when it bothered her after lifting something but she did stretches and it was better in 20 min. She reports a knot in glutes PT-OP-G Mobility & Gait Start: 07/27/18 08:34 Freq: Status: Active Protocol: Document 07/26/18 17:30 EA (Rec: 07/27/18 09:34 EA [id number]) OP Gait Assessment Comments Gait Comments No gait deviation noted Stair Climbing Evaluation Comments Stair Climbing Comments No stairs difficulty PT-OP-J Posture/Palpation/Skin Start: 07/27/18 08:34 Freq: Status: Active Protocol: Document 07/26/18 17:30 [facility] (Rec: 07/27/18 09:34 EA [id number]) Posture Evaluation Comments Posture Comments Good general posture with slight increased in lumbar lordosis Palpation Assessment Location One Palpation Location Both paralumbars, QL Palpation Findings Soft Tissue Tightness,Muscle Guarding,Tenderness Skin Assessment Other Assessments Skin Assessment Comments Palpable electronic device placed to R upper gluteal area PT-OP-K Range of Motion Start: 07/27/18 08:34 Freq: Status: Active Protocol: Document 06/22/19 13:45 [facility] (Rec: 06/22/19 14:01 [facility] [id number]) Shoulder Goniometric Range of Motion Shoulder Left Active Flexion 150 Extension 45 Abduction 144 External Rotation at 0 degrees Abduction 41 Internal Rotation Behind Back (text) L5 PT-OP-L Special Tests Start: 07/27/18 08:34 Freq: Status: Active Protocol: Document 07/26/18 17:30 EA (Rec: 07/27/18 09:34 EA [id number]) Special Tests Lumbar Spine Special Tests Other- 1 Test Results Neg Gaenlen's Slump Test Results negative Straight Leg Raise Test Results negative Compression Test Results negative PT-OP-M Strength Start: 07/27/18 08:34 Freq: Status: Active Protocol: Document 06/22/19 13:45 [facility] (Rec: 06/22/19 14:01 [facility] [id number]) Shoulder Strength Shoulder Manual Muscle Testing Left Flexion 3+ Fair+ Extension 3+ Fair+ Abduction (C5) 3+ Fair+ External Rotation 4 Good Internal Rotation 4 Good Reason Not Measured Pain PT-OP-Q Treatments Start: 07/27/18 08:34 Freq: Status: Active Protocol: Document 07/27/19 09:48 [facility] (Rec: 07/27/19 12:14 [facility] [id number]) Therapeutic Exercises Supine Exercises 11 Supine Exercise Name self tennis ball roll out on glute Side left Standing Exercises Ecc Squat Standing Exercise Name Eccentric Squat Wall push ups Standing Exercise Name Standing incline push ups Equipment Used wall & counter, rail Reps/Minutes 10x each Comments cued PPT and straight trunk 7 Standing Exercise Name wall posture Manual Therapy Treatment Soft Tissue Mobilization STM L UT/scalenes,lateral shld Body Location L Deltoid, UT & Supraspinatus Mobilization Type Strumming,Sustained Pressure Intensity/Depth Moderate Comments In Sitting & Supine Self-Care/Home Management Treatment Education Patient Education Home Exercise Program Other Education review HEP and discussed importance of using exercises as needed PT-OP-R Modalities Start: 07/27/18 08:34 Freq: Status: Active Protocol: Document 07/27/19 09:48 [facility] (Rec: 07/27/19 12:14 [facility] [id number]) Hot Pack/Cold Pack Treatment Hot Pack Location L shoulder & lumbar area Patient Position Sidelying Treatment Duration (minutes) 10 Patient Tolerance Good PT-OP-T Assessment and Plan Start: 07/27/18 08:34 Freq: Status: Active Protocol: Document 07/27/19 09:48 [facility] (Rec: 07/27/19 12:16 [facility] [id number]) Physical Therapy Assessment Goals shoulder Fci Goal (LTG) Pt will have full AROM in order to allow pt to do typical daily activities without inc pain. LTG Duration 08/23/19 Seven Impairment Patient education Stem Maker Goal (LTG) Patient safe and independent with HEP and aquatic exercise program for long-term fitness and pain managment LTG Duration achieved Four Stem Maker Goal (LTG) Patient will exhibit independent safe home exercise program LTG Duration achieved progressing as tolerated Two Impairment stairs Short Term Goal (STG) up stairs reciprocally w/o pain STG Duration achieved Stem Maker Goal (LTG) down stairs reciprocally w/o pain LTG Duration by November 16-achieved One Impairment pain w/ dance,up/down steps reciprocally,rowing machine, squat, walking Short Term Goal (STG) indep with HEP STG Duration 02/18/18-progressing HEP Fci Goal (LTG) Able to do rec activities without pain LTG Duration achieved-can manage pain if gets it Assessment Summary Assessment Pt able to do exercises with good form today. She was educatd on use of ball under glute for rolling out. She cont to have stiffness in neck region that likely contributes to shoulder pain, but improves w/soft tissue work. Physical Therapy Plan Frequency and Duration Frequency of Treatment 1-2x/Week Duration of Treatment 2 months Plan of Care Start Date 06/22/19 Plan of Care End Date 08/23/19 Next Visit Focus/Plan Next Note Type Treatment Note Next Visit Plan Retry recumbent bike next visit and assess ROM goals for shoulders. Shoulder sta is needed for pt to be able to sleep on her painful shoulder side. Continue per PT POC: GH mobs for shoulder motion & soft tissue as needed, scapular strenghtening exercises (s/l abd, Habd tband )
--- NOTE | 2019-09-15 11:15 | PT.OPDS ---
Current Diagnoses Low back pain (07/27/19) Visit Care Team Role Provider Type Tiny Henderson MD Family Provider Physician Primary Care Provider Specialty: Family Practice Address: [address] [place] [address], [facility], [address] Email: [email or web address] JONNY Ospina Attending Provider Advanced Cheese Sprayer Specialty: Medical Address: [address] [place] [address], [id number] Email: [email or web address] Visit Number Visit Number 56 Discharge Summary PT-OP-T Assessment and Plan Start: 07/27/18 08:34 Freq: Status: Active Protocol: Document 09/15/19 11:12 [facility] (Rec: 09/15/19 11:15 [facility] [id number]) Physical Therapy Assessment Assessment Summary Assessment Pt has made good progress with back and shoulder PT with improved motion and activity tolerance overall. Pt has not been seen for 49 days and did not schedule any further appointments. At this time she is d/c. If she requires any further appointments, please send a new referal for treatment. Physical Therapy Plan Discharge Physical Therapy Discharge Reasons No Longer Attending PT
== END 2019-12-14 13:18 ==
LOC: PHYS 09:45
PROVIDERS: Family Provider Family Medicine; PCP Family Medicine; Visit Provider Registered Nurse
DX: M54.5 Low back pain (principal)
CPT/HCPCS: 97010; 97014; 97110; 97112; 97116; 97140; 97161; 97164; 97530; 97535; G0283

== ENCOUNTER → 2019-08-11 19:02 | Outpatient (ROUT) | payer MEDICARE, OTHER, SELFPAY ==
[2019-08-11 20:31] LABS: TSH w/ Reflex to FT4 0.32 uIU/mL (0.47-4.68)
[2019-08-11 20:56] LABS: Free T4, Direct Thyroxine 2.02 ng/dL (0.78-2.19)
== END ==
PROVIDERS: Family Provider Family Medicine; PCP Family Medicine; Visit Provider Internal Medicine
DX: E03.9 Hypothyroidism, unspecified (principal)
CPT/HCPCS: 84439; 84443

== ENCOUNTER → 2019-12-01 13:37 | Outpatient (CLI) | payer MEDICARE, OTHER, SELFPAY ==
[2019-12-01 18:09] LABS: TSH w/ Reflex to FT4 1.72 uIU/mL (0.47-4.68)
== END ==
PROVIDERS: Family Provider Family Medicine; PCP Internal Medicine; Referring Provider Internal Medicine; Visit Provider Internal Medicine
DX: E03.9 Hypothyroidism, unspecified (principal)
CPT/HCPCS: 36415; 84443

== ENCOUNTER → 2019-12-14 13:15 | Outpatient (RCR) | payer MEDICARE, OTHER, SELFPAY ==
--- NOTE | 2018-04-16 13:16 | OT.OP.EVAL ---
Visit Care Team Role Provider Type Tiny Henderson MD Attending Provider Physician Family Provider Primary Care Provider Specialty: Family Practice Address: [address] [place] [address], [id number] Email: [email or web address] Occupational Therapy Initial Evaluation OT Outpatient Adult Evaluation Start: 04/16/18 12:42 Freq: Status: Active Protocol: Document 04/13/18 12:43 [facility] (Rec: 04/16/18 13:15 [facility] [id number]) General Information Visit Start Time 09:30 Visit Stop Time 10:18 Total Visit Minutes 48 Visit Number 07/15 Plan of Care Dates 04/13/18-05/11/18 Insurance Information Medicare - G-codes required Treatment Setting Outpatient Care Note Type Initial Evaluation Identification Confirmed Yes: Confirmed w/ chart Therapy Pain Assessment When Pain Assessed pre-tx Pain Present Pain Reported Bilateral Hand Description Aching Cramping Tender Tightness With Movement Patient Questionnaires Quick Dash UE Score 68.2 Quick Dash UE Impairment 60 to 79% Impaired (Score 60- 79) ADLs Basic ADLs WFL IADLs Comments Dependent on activity Yard Management Pt reported pain/discomfort presented in hands bilaterally after increased engagement in yard maintenance tasks; pt reported that 3rd middle finger began to 'crack' and ' get stuck'. Skill Level Impaired Observations Joint Protection Fair Comments Denied education/awareness of joint protection principles. Observations Using wire to minimize R 3rd digit flexion and to provide support. Goals Treatment Joint protection education completed. Written handout provided to patient addressing Joint Protection Principles. Education re: resting flexor tendon via oval-8 ring. Arthritis pain management education completed. Handout and resources provided for joint protection w/ gardening, stretching of wrist/digits into flexion and extension, and investment in personal oval-8 ring. Short Term Goals 1. Patient will verbalize 100% understanding of basic joint protection principles utilizing handout as needed as reference. 2. Patient will be able demonstrate basic understanding of basic joint protection principles, as evidenced by ability to verbalize incorporation of at least 1 joint protection principle into meaningful gardening activities (e.g., rest breaks, use of spring loaded pruning sheers). Assessment/Plan Patient Response Good Rehabilitation Potential Good Impairments Identified Coordination/Dexterity Pain Weakness Range of Motion Additional Impairments Identified Decreased joint protection Treatment Assessment Patient is a 72 year-old female who was referred by her PCP to outpt OT secondary to bilateral hand pain. Patient resides w/ her supportive spouse and oversees the care of her 3 school age grandchildren. PMH: Health History Form completed and placed in paper chart. Signficant for h/o Thyroid disorder and headaches. Evaluation Findings: R hand dominant; h/o anti- inflammatory steroid injection into R 3rd digit due to trigger finger; self-made splint to support/reduce active flexion of R 3rd digit; pain/discomfort of B hands; decreased awareness of joint protection principles; reported clicking and locking of 3rd digit into flexion on consistent basis; decreased active use of home pain management techniques; and decreased ability to successfully engage in and complete meaningful activities as evidenced by QuickDASH UE Outcome Measure results. Outpt OT recommended in order to provide education re: joint protection; purpose of splint for blocking flexion; home pain/swelling management techniques; maintenance of available range of motion; and monitoring changes (relative to abnormal positioning of digits in positions of deformity). Home Exercise Program Joint protection education completed. Written handout provided to patient addressing Joint Protection Principles. Education re: resting flexor tendon via oval-8 ring. Arthritis pain management education completed. Handout and resources provided for joint protection w/ gardening, stretching of wrist/digits into flexion and extension, and investment in personal oval-8 ring. Length of Treatment Recommended 2-4 Weeks Treatment Frequency Once a Week Therapeutic Contents Active Range of Motion Adaptive Equipment Education Client Education Cognitive Skills Development Functional Activities Home Exercise Program Joint Protection Manual Therapy Education Self-Care Splinting Stretching/Flexibility Activities Therapeutic Activities Therapeutic Exercises Modalities Modalities As Needed As Prescribed Types of Modalities Contrast Bath E-Stim Ice Massage Low Level Laser Ultrasound Additional Types of Modalities Paraffin bath Patient Instruction Home Exercise Program Plan of Care Questions/Concerns
--- NOTE | 2018-04-16 13:28 | OT.OP.DC ---
Visit Care Team Role Provider Type Tiny Henderson MD Attending Provider Physician Family Provider Primary Care Provider Address: [address] [place] [address], [facility] Email: [email or web address] Outpatient OT Outpatient Adult Evaluation Start: 04/16/18 12:42 Freq: Status: Active Protocol: Document 04/13/18 12:43 AMS (Rec: 04/16/18 13:15 AMS [id number]) General Information Session Time Visit Start Time 09:30 Visit Stop Time 10:18 Total Visit Minutes 48 Visit Information Visit Number 07/15 Plan of Care Dates 04/13/18-05/11/18 Insurance Information Medicare - G-codes required Setting Treatment Setting Outpatient Care Visit Type Note Type Initial Evaluation Identification Identification Confirmed Yes: Confirmed w/ chart Therapy Pain Assessment Pain When Pain Assessed pre-tx Pain Present Pain Present Pain Reported Location Bilateral Hand Description Aching Cramping Tender Tightness With Movement Patient Questionnaires Quick Dash- Upper Extremity Quick Dash UE Score 68.2 Quick Dash UE Impairment 60 to 79% Impaired (Score 60- 79) ADLs Overall Ability Basic ADLs WFL IADLs Overall Function Comments Dependent on activity Yard Management Yard Management Pt reported pain/discomfort presented in hands bilaterally after increased engagement in yard maintenance tasks; pt reported that 3rd middle finger began to 'crack' and ' get stuck'. Skill Level Impaired Observations Joint Protection Joint Protection Fair Comments Denied education/awareness of joint protection principles. Observations Observations Using wire to minimize R 3rd digit flexion and to provide support. Goals Treatment Treatment Joint protection education completed. Written handout provided to patient addressing Joint Protection Principles. Education re: resting flexor tendon via oval-8 ring. Arthritis pain management education completed. Handout and resources provided for joint protection w/ gardening, stretching of wrist/digits into flexion and extension, and investment in personal oval-8 ring. Short Term Goals Short Term Goals 1. Patient will verbalize 100% understanding of basic joint protection principles utilizing handout as needed as reference. 2. Patient will be able demonstrate basic understanding of basic joint protection principles, as evidenced by ability to verbalize incorporation of at least 1 joint protection principle into meaningful gardening activities (e.g., rest breaks, use of spring loaded pruning sheers). Assessment/Plan Assessment Patient Response Good Rehabilitation Potential Good Impairments Identified Coordination/Dexterity Pain Weakness Range of Motion Additional Impairments Identified Decreased joint protection Treatment Assessment Patient is a 72 year-old female who was referred by her PCP to outpt OT secondary to bilateral hand pain. Patient resides w/ her supportive spouse and oversees the care of her 3 school age grandchildren. PMH: Health History Form completed and placed in paper chart. Signficant for h/o Thyroid disorder and headaches. Evaluation Findings: R hand dominant; h/o anti- inflammatory steroid injection into R 3rd digit due to trigger finger; self-made splint to support/reduce active flexion of R 3rd digit; pain/discomfort of B hands; decreased awareness of joint protection principles; reported clicking and locking of 3rd digit into flexion on consistent basis; decreased active use of home pain management techniques; and decreased ability to successfully engage in and complete meaningful activities as evidenced by QuickDASH UE Outcome Measure results. Outpt OT recommended in order to provide education re: joint protection; purpose of splint for blocking flexion; home pain/swelling management techniques; maintenance of available range of motion; and monitoring changes (relative to abnormal positioning of digits in positions of deformity). Home Exercise Program Joint protection education completed. Written handout provided to patient addressing Joint Protection Principles. Education re: resting flexor tendon via oval-8 ring. Arthritis pain management education completed. Handout and resources provided for joint protection w/ gardening, stretching of wrist/digits into flexion and extension, and investment in personal oval-8 ring. Plan Length of Treatment Recommended 2-4 Weeks Treatment Frequency Once a Week Therapeutic Contents Active Range of Motion Adaptive Equipment Education Client Education Cognitive Skills Development Functional Activities Home Exercise Program Joint Protection Manual Therapy Education Self-Care Splinting Stretching/Flexibility Activities Therapeutic Activities Therapeutic Exercises Modalities Modalities As Needed As Prescribed Types of Modalities Contrast Bath E-Stim Ice Massage Low Level Laser Ultrasound Additional Types of Modalities Paraffin bath Patient Instruction Home Exercise Program Plan of Care Questions/Concerns Sensory Assessment Sensory Profile2 Functional Wrist/Hand Scan Hand Side OT Outpatient Treatment Note - Adult Start: 04/16/18 13:19 Freq: Status: Active Protocol: Document 04/16/18 13:20 AMS (Rec: 04/16/18 13:27 AMS [id number]) OT Outpatient Adult Treatment Note Session Time Visit Start Time 09:30 Visit Stop Time 10:18 Total Visit Minutes 48 Visit Information Visit Number 08/15 Plan of Care Dates 04/13/18-05/11/18 Insurance Information Medicare - G-codes required Setting Treatment Setting Outpatient Care Visit Type Note Type Treatment Note General Information General Information Patient is a 72 year-old female who was referred by her PCP to outpt OT secondary to bilateral hand pain. Patient resides w/ her supportive spouse and oversees the care of her 3 school age grandchildren. PMH: Health History Form completed and placed in paper chart. Signficant for h/o Thyroid disorder and headaches. - Subjective Identification Type Name Identification Reconciled With Medical Record Observations We are going to use a timer and we are going to change tasks every 45 minutes per Subha. I think we have a handle on this. Patient/Caregiver Compliance with Home Excellent Exercise Program - Objective Objective Measurements Pt verbalized 100% understanding of basic joint protection principles. Pt verbalized understanding re: oval 8 ring's purpose relative to resting flexor tendon of the 3rd digit. Pt verbalized understanding of basic pain management techniques, including use of heat (and/or mittens/gloves). Pt denied need for current treatment. Pt in agreement to be d/c. Short Term Goals 1. Patient will verbalize 100% understanding of basic joint protection principles utilizing handout as needed as reference. *GOAL MET 04/16/18 2. Patient will be able demonstrate basic understanding of basic joint protection principles, as evidenced by ability to verbalize incorporation of at least 1 joint protection principle into meaningful gardening activities (e.g., rest breaks, use of spring loaded pruning sheers). *GOAL MET 04/16/18 - Treatment 1 Descriptor Discussion of active use of basic joint protection principles. Reviewed oval-8 ring and instructed on available resources available on-line. - Assessment Patient Response to Treatment Good Rehab Potential Good Progress Towards Goals Appropriate for Discharge Assessment of Improvement Pt met all goals for outpatient OT and denies need for continued outpt treatment at this time. Education has been completed in re: joint protection, home pain management techniques, maintaining available range of motion, oval-8 ring, and modification of gardening activities to support continued engagement in/ participation in. Pt denied need for ongoing treatment. Thus, pt to be d/c. Reviewed with Patient/Caregiver Goals Progress Being Made Home Exercise Program - Plan Therapy Recommendations Discharge from Occupational Therapy
== END ==
LOC: OT 04-13 09:09
PROVIDERS: Family Provider Family Medicine; PCP Family Medicine; Visit Provider Family Medicine
DX: M79.641 Pain in right hand (principal); M79.642 Pain in left hand
CPT/HCPCS: 97165; 97530

== ENCOUNTER → 2019-12-16 09:55 | Outpatient (CLI) | payer MEDICARE, OTHER, SELFPAY ==
[2019-12-16 11:06] LABS: BUN Creatinine Ratio 21.1 (6-22); Blood Urea Nitrogen 16 mg/dL (7-17); Calcium 9.6 mg/dL (8.4-10.2); Carbon Dioxide 30 mmol/L (22-32); Chloride 104 mmol/L (98-107); Estimated Glomerular Filt Rate > 60.0 mL/min (>60); Glucose 101 mg/dL (80-110); HEMOLYSIS < 15 (0-50); Potassium 4.3 mmol/L (3.4-5.1); Sodium 139 mmol/L (137-145)
[2019-12-16 11:57] LABS: Vitamin B12 619 pg/mL (239-931)
== END ==
PROVIDERS: Family Provider Family Medicine; PCP Internal Medicine; Referring Provider Internal Medicine; Visit Provider Internal Medicine
DX: R20.8 Other disturbances of skin sensation (principal)
CPT/HCPCS: 36415; 80048; 82607

== ENCOUNTER → 2019-12-28 08:45 | Outpatient (CLI) | payer MEDICARE, OTHER, SELFPAY ==
[2019-12-30 21:36] LABS: COVID19 Sendout Not Detected (Not Detected)
== END ==
PROVIDERS: Family Provider Family Medicine; PCP Internal Medicine; Visit Provider Physician Assistant
DX: Z11.59 Encounter for screening for other viral diseases (principal)
CPT/HCPCS: 87635

== ENCOUNTER → 2020-04-04 07:58 | Outpatient (CLI) | payer MEDICARE, OTHER, SELFPAY ==
--- NOTE | 2020-04-04 | DI.US.S_ITS ---
PROCEDURE: US ABDOMEN COMPLETE INDICATIONS: UPPER ABDOMINAL PAIN TECHNIQUE: Real-time scanning was performed of the abdominal and retroperitoneal organs, with image documentation. COMPARISON: None. FINDINGS: Liver: Liver is normal in size and homogeneous in echotexture. Gallbladder: Unremarkable. No sonographic Adams sign. Biliary ducts: Intrahepatic bile ducts are non-dilated. Extrahepatic bile duct caliber measures 4-6 mm. Normal is 6-7 mm or less in diameter, or 10 mm or less post-cholecystectomy. Pancreas: Visualized portions of the pancreas are sonographically normal. Spleen: Spleen is normal in size and homogeneous in echotexture. Kidneys: Kidneys are normal in size and echotexture. Right kidney measures 10.0 cm long; left kidney measures 9.2 cm long. No hydronephrosis or nephrolithiasis. No solid masses. Aorta: Visualized aorta is normal in caliber at less than 3 cm. Iliacs: Proximal common iliac arteries are normal in caliber at less than 2.5 cm. IVC: Intrahepatic inferior vena cava is patent. Miscellaneous: No free abdominal fluid. IMPRESSION: Unremarkable examination as above. Normal appearance of the gallbladder Dictated by: Barrett Jackman M.D. on 04/04/2020 at 10:27 Approved by: Barrett Jackman M.D. on 04/04/2020 at 10:28
== END ==
PROVIDERS: Family Provider Family Medicine; PCP Internal Medicine; Referring Provider Internal Medicine; Visit Provider Internal Medicine
DX: R10.10 Upper abdominal pain, unspecified (principal)
CPT/HCPCS: 76700

== ENCOUNTER → 2020-07-04 10:05 | Outpatient (CLI) | payer MEDICARE, OTHER, SELFPAY ==
--- NOTE | 2020-07-04 | DI.US.S_ITS ---
ULTRASOUND OF LEFT BREAST AND AXILLA: 07/04/2020 CLINICAL: Palpable left axilla lump. LEFT ARMPIT ONLY. Comparison is made to exam dated: 04/07/2013 mammogram - [facility]. Color flow and Doppler ultrasound of the left breast axilla were performed. Pearson scale images of the real-time examination were reviewed. There is a benign normal lymph node in the left axillary tail measuring 3.5 x 0.9 x 2.1 cm. This normal lymph node displays a very thin, uniform cortex and a prominent fatty hilum. This correlates as palpated. IMPRESSION: BENIGN There is no sonographic evidence of malignancy. The normal lymph node is benign. Return to annual mammogram screening schedule is recommended. Findings and recommendations were conveyed to the patient at time of exam. This exam was interpreted at Station ID: [id number]. Electronically Signed By: Wendi yu/:07/04/2020 11:48:43 letter sent: Normal Exam Ultrasound BI-RADS: 2 Benign
== END ==
PROVIDERS: Family Provider Family Medicine; PCP Internal Medicine; Referring Provider Physician Assistant; Visit Provider Physician Assistant
DX: R59.0 Localized enlarged lymph nodes (principal)
CPT/HCPCS: 76882

== ENCOUNTER → 2020-07-27 09:12 | Outpatient (CLI) | payer MEDICARE, OTHER, SELFPAY ==
[2020-07-27 09:58] LABS: Alanine Aminotransferase 19 IU/L (<35); Albumin 4.2 g/dL (3.5-5.0); Albumin Globulin Ratio 1.4 (1.0-2.8); Alkaline Phosphatase 98 U/L (38-126); Aspartate Aminotransferase 33 IU/L (14-36); BUN Creatinine Ratio 24.4 (6-22); Bilirubin Total 0.5 mg/dL (0.2-1.3); Blood Urea Nitrogen 20 mg/dL (7-17); Calcium 9.1 mg/dL (8.4-10.2); Carbon Dioxide 33 mmol/L (22-32); Chloride 104 mmol/L (98-107); Cholesterol 191 mg/dL (140-199); Estimated Glomerular Filt Rate > 60.0 mL/min (>60); Globulin 3.1 g/dL (1.7-4.1); Glucose 105 mg/dL (80-110); HDL Cholesterol 49 mg/dL (40-60); HEMOLYSIS < 15 (0-50); LDL Cholesterol Calculated 123 mg/dL (<100); Potassium 4.2 mmol/L (3.4-5.1); Sodium 138 mmol/L (137-145); Total Protein 7.3 g/dL (6.3-8.2); Triglycerides 93 mg/dL (35-150)
[2020-07-27 10:35] LABS: TSH w/ Reflex to FT4 3.24 uIU/mL (0.47-4.68)
== END ==
PROVIDERS: Family Provider Family Medicine; PCP Internal Medicine; Referring Provider Internal Medicine; Visit Provider Internal Medicine
DX: E78.5 Hyperlipidemia, unspecified (principal); R47.89 Other speech disturbances; E03.9 Hypothyroidism, unspecified
CPT/HCPCS: 36415; 80053; 80061; 84443

== ENCOUNTER → 2020-08-07 10:56 | Outpatient (CLI) | payer MEDICARE, OTHER, SELFPAY ==
--- NOTE | 2020-08-07 11:04 | DI.CT.S_ITS ---
PROCEDURE: CT HEAD/BRAIN WO/W CON INDICATIONS: Other speech disturbances TECHNIQUE: 4.5 mm thick angled axial sections acquired from the foramen magnum to the vertex both before and after the administration of intravenous contrast, with coronal and sagittal reformats. For radiation dose reduction, the following was used: automated exposure control, adjustment of mA and/or kV according to patient size. COMPARISON: None. FINDINGS: Image quality: Excellent. CSF spaces: Basal cisterns are patent. No extra-axial fluid collections. Ventricles are symmetric in size and shape. Brain: No midline shift. No intracranial bleeds or masses. No abnormal intracranial enhancement. There is cerebral volume loss for age. There is periventricular white matter chronic small vessel ischemic change. There is intracranial internal carotid artery atherosclerosis. Skull and face: Calvarium and visualized facial bones appear intact, without suspicious lesions. Sinuses: Visualized sinuses and mastoids are clear. IMPRESSION: 1. No acute intracranial process. 2. Mild to moderate atrophy and chronic microvascular ischemic changes. Dictated by: Elda Alan M.D. on 08/07/2020 at 11:38 Approved by: Elda Alan M.D. on 08/07/2020 at 11:39
== END ==
PROVIDERS: Family Provider Family Medicine; PCP Internal Medicine; Referring Provider Internal Medicine; Visit Provider Internal Medicine
DX: R47.89 Other speech disturbances (principal); I65.29 Occlusion and stenosis of unspecified carotid artery
CPT/HCPCS: 70470; Q9967

== ENCOUNTER → 2020-08-27 15:24 | Outpatient (CLI) | payer MEDICARE, OTHER, SELFPAY ==
[2020-08-27 17:46] LABS: COVID19 -Nasal RAPID Negative (Negative)
== END ==
PROVIDERS: Family Provider Family Medicine; PCP Internal Medicine; Visit Provider Physician Assistant
DX: Z01.812 Encounter for preprocedural laboratory examination (principal); Z20.822 Contact with and (suspected) exposure to COVID-19
CPT/HCPCS: 87635; C9803

== ENCOUNTER → 2020-09-21 08:35 | Outpatient (CLI) | payer MEDICARE, OTHER, SELFPAY ==
[2020-09-21 10:08] LABS: Cholesterol 206 mg/dL (140-199); HDL Cholesterol 53 mg/dL (40-60); LDL Cholesterol Calculated 133 mg/dL (<100); Triglycerides 99 mg/dL (35-150)
[2020-09-21 10:11] LABS: Add Manual Diff / Slide Review NO; Basophils Absolute Auto 100 /uL (0-100); Basophils Percent Auto 1.1 % (0-2); Eosinophils Absolute Auto 300 /uL (0-450); Eosinophils Percent Auto 4.7 % (2-4); Hematocrit 43.5 % (36-46); Hemoglobin 14.5 g/dL (12.0-16.0); Lymphocytes Absolute Auto 1600 /uL (1100-4500); Lymphocytes Percent Auto 26.5 % (25-40); Mean Corpuscular HGB Conc 33.4 % (30-36); Mean Corpuscular Hemoglobin 29.3 PG (26-34); Mean Corpuscular Volume 87.5 fL (80-100); Monocytes Absolute Auto 700 /uL (0-900); Monocytes Percent Auto 11.7 % (3-14); Neutrophils Absolute Auto 3300 /uL (1500-7000); Platelet Count 257 X10^3/uL (150-400); Red Blood Cell Count 4.97 X10^6/uL (4.0-5.2); Red Cell Distribution Width 13.7 % (11.6-14.8); White Blood Cell Count 5.9 X10^3/uL (4.5-11.0)
[2020-09-21 10:44] LABS: TSH w/ Reflex to FT4 2.06 uIU/mL (0.47-4.68)
== END ==
PROVIDERS: Family Provider Family Medicine; PCP Internal Medicine; Referring Provider Internal Medicine; Visit Provider Internal Medicine
DX: R53.82 Chronic fatigue, unspecified (principal); E03.9 Hypothyroidism, unspecified; E78.5 Hyperlipidemia, unspecified
CPT/HCPCS: 36415; 80061; 84443; 85025

== ENCOUNTER 2020-11-21 10:17 | Outpatient (RCR) | payer MEDICARE, OTHER, SELFPAY ==
--- NOTE | 2020-11-21 15:28 | ST.OPIE ---
Visit Care Team Role Provider Type Renetta Higginbotham MD Primary Care Provider Physician Specialty: Internal Medicine Address: [address] [place] [address], [id number] Email: [email or web address] Tae Loja MD Attending Provider Physician Referring Provider Specialty: Ear, Nose, Throat Address: [address] [place] [address], [address] Email: [email or web address] Speech-Language Pathology Initial Evaluation SUPERVISOR INTELLIGENCE ANALYST Clinical Instructor Line Start: 11/21/20 11:52 Freq: Status: Active Protocol: Document 11/21/20 15:17 [facility] (Rec: 11/21/20 15:17 [facility] [id number]) Clinical Instructor Signature Clinical Instructor Clinical Instructor Yes SUPERVISOR INTELLIGENCE ANALYST Voice Resonance Evaluation Start: 11/21/20 11:52 Freq: Status: Active Protocol: Document 11/21/20 11:54 [facility] (Rec: 11/21/20 12:08 HM [id number]) Voice and Resonance Assessment Session Time Visit Start Time 10:30 Visit Stop Time 11:30 Total Visit Minutes 60 Visit Information Visit Number 1 Plan of Care Dates 11/21/20-02/21/21 Insurance Information Medicare Next Note Type Next Note Type Treatment Note Referral Referring Physician Tae Loja Reason for Referral Hoarseness Setting Setting Outpatient Care Patient History General Information Subha is a 75-year-old woman who was referred for a voice evaluation due to vocal hoarseness and a history of GERD. Per her medical record, she also has a relevant history of ADHD, anxiety, PTSD , hypothyroidism, and situational asthma. She is a heavy voice user as she has permanent guardianship of three grandchildren, two with diagnosed ASD. She reported needing to shout frequently, but has been trying to reduce this recently. 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 She shared that she previously had a marielle voice and would like to improve her current vocal quality. Subha reported that she has a small hole in her esophagus and was prescribed Omeprazole to decrease the amount of stomach acid. She had stopped taking it for awhile but is continuing now after noting the return of GERD symptoms. Subha has a dry throat in the morning and occasionally sucks on a lozenge to help with this. Occupational Status Occupation Status Guardian of her three grandchildren with complex needs Previous Therapy Previous Speech-Language Therapy No Oral Motor Assessment Source: [employer] ([employer]). Oral-Motor Eval Completed No: Informal observation indicated structures and function to be WNL. Subjective Subjective Pt arrived on time and was cooperative throughout the assessment. She did present with significant anxiety related to a variety of personal factors. - Laryngeal Performance S/Z Ratio S/Z Ratio 9 seconds /s/ to 8 seconds /z/ : 1.13 Functional for Speech Yes Reduced Laryngeal Function Relative to Yes: Slightly. Respiration CAPE-V Overall Severity 64 Roughness 65 Breathiness 74 Strain 62 Pitch 16 Loudness 3 Normal Resonance? Yes Additional Features Diplophonia,Asthenia,Tremor, Wet/Gurgly Other Features Observed Pitch breaks Maximum Phonation Time MPT Norms: Women (15-25) Men (25-35) Loudness (50-60 dB); Speaking Rate: Oral Reading of Sentences (190 Words Per Minute); Oral Reading of Paragraphs (160-170 WPM); Speaking Rate in Conversation (150-250 WPM) Maximum Phonation Time 6.8 during sustained /ah/ Maximum Phonation Time Reduced Maximum Phonation Time Comments While the sustained /ah/ was reduced, pt was observed to have adequate respiratory support for phonation during conversation. She exhibited appropriate breath pauses during conversation. Jitter/Shimmer Norms: Jitter (Less than or equal to 1.040% - Frequency) Norms: Shimmer (Less than or equal to 3.810% - Amplitude) Jitter 4.7717 Shimmer 7.8384 Pitch [place] Pitch [place] Reduced Range Pitch [place] Comments Frequency range from 119 Hz - 366 Hz. Breath Support Breath Support At Rest Thoracic Breath Support Sustained Phonation Thoracic Breath Support Sustained Phonation Pt did not appear to take an Comment adequate breath prior to sustained /ah/ tasks. Breath Support Conversation Thoracic Breath Support Conversation Comment Breath support during conversation was WFL. Speaks on Room Air Yes Postural Alignment Stance Balanced Neck Free and Loose Shoulders Symmetrical Voice Pitch Range Norms: Women (100-300 Hz) Men (70-250 Hz) Fundamental Frequency Norms: Women (Mean: 225 Hz; Range: 155-334 Hz) Men ( Mean: 128 Hz; Range: 85-196 Hz) Voice Pitch Normal Voice Loudness Normal Voice Phonatory-based Quality Breathy,Hoarse,Weak, Diplophonia Fundamental Frequency 227 Hz during sustained /ah/. 182 Hz during reading. Paradoxical Vocal Fold Movement No Indications Resonance Nasal Resonance Normal Oral Resonance Normal Other Observations Inadequate Breath Support Therapeutic Techniques Therapy Tactics Hard Glottal Onset,Breath Support Other Tactics Vocal fold adduction exercises Findings Findings Mild-Moderate Impairment Observations Pt presents with mild-moderate voice deficits, characterized by breathiness, roughness, diplophonia, pitch breaks, and occasional tremor. The vocal quality described is suspected to be secondary to vocal fold irritation due to GERD, as well as age-related vocal fold bowing. In addition , the pt demonstrates vocally abusive behavior by yelling throughout the day. The combination of frequent yelling, vocal fold bowing, and irritation from GERD would lead to inadequate adduction (closure) of the vocal folds and poor vocal quality. Inadequate laryngeal muscular strength requires increased effort when talking to adduct the vocal folds for voice production. Additionally, pt exhibits significant anxiety and overall tension which contributes to laryngeal muscular fatigue and poor vocal quality as a result. Prognosis Rehabilitation Potential Good - Recommendations Treatment Recommended Yes Treatment Frequency/Duration Once every 2 weeks for 3 months. Placement Recommendation Outpatient Therapy Therapy Recommendations Voice therapy is recommended to increase laryngeal muscular strength required for voicing . Short Term Goals Pt will report completion of vocal fold adduction exercises , 30x/3x per day. Pt will demonstrate use of abdominal breathing in order to increase MPT to 12 seconds. Fci Goals Pt will report increased satisfaction with her voice, as measured by patient interview. Pt will demonstrate improved vocal quality, as measured by decreased jitter and shimmer values. Referrals Referrals Psychology Patient/Caregiver Education Patient/Family Education Described results of evaluation,Patient Demonstration,Patient Needs More Info Vocally Abusive Behavior Behavior Rating [place] Talking Frequently Calling from Distance Frequently Environmental Irritant Exposure Frequently Excessive Talking Frequently Yelling/Screaming Frequently
--- NOTE | 2021-02-13 14:38 | ST.OPDS ---
Visit Care Team Role Provider Type Renetta Higginbotham MD Primary Care Provider Physician Address: [address] [place] [address], [address] Tae Loja MD Attending Provider Physician Referring Provider Address: [address] [place] [address], [address] HISTORICAL RECORDS ADMINISTRATOR Treatment Note HISTORICAL RECORDS ADMINISTRATOR Clinical Instructor Line Start: 11/21/20 11:52 Freq: Status: Active Protocol: Document 11/21/20 15:17 [facility] (Rec: 11/21/20 15:17 [facility] [id number]) Clinical Instructor Signature Clinical Instructor Clinical Instructor Yes HISTORICAL RECORDS ADMINISTRATOR Treatment Note Start: 11/21/20 11:52 Freq: Status: Active Protocol: Document 02/13/21 14:33 [facility] (Rec: 02/13/21 14:38 [facility] [id number]) Speech Pathology Treatment Note Setting Treatment Setting Outpatient Care Visit Type Note Type Discharge Summary General Information General Information Subha is a 75-year-old woman who was referred for a voice evaluation due to vocal hoarseness and a history of GERD. Per her medical record, she also has a relevant history of ADHD, anxiety, PTSD , hypothyroidism, and situational asthma. She is a heavy voice user as she has permanent guardianship of three grandchildren, two with diagnosed ASD. She reported needing to shout frequently, but has been trying to reduce this recently. 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 She shared that she previously had a marielle voice and would like to improve her current vocal quality. Subha reported that she has a small hole in her esophagus and was prescribed Omeprazole to decrease the amount of stomach acid. She had stopped taking it for awhile but is continuing now after noting the return of GERD symptoms. Subha has a dry throat in the morning and occasionally sucks on a lozenge to help with this. Subjective Observations/Patient Presentation During her evaluation appointment, pt presented with mild-moderate voice deficits, characterized by breathiness, roughness, diplophonia, pitch breaks, and occasional tremor . The vocal quality described is suspected to be secondary to vocal fold irritation due to GERD, as well as age- related vocal fold bowing. Chief Complaint(s) Voice Assessment Progress Towards Goals Appropriate for Discharge Plan Reason for Discharge pt has not been seen for therapy since evaluation (11/21)
== END 2021-02-13 14:58 | disposition home or self-care (01) ==
LOC: SP 10:17
PROVIDERS: PCP Internal Medicine; Referring Provider Otolaryngology; Visit Provider Otolaryngology
DX: R49.0 Dysphonia (principal)
CPT/HCPCS: 92520; 92524

== ENCOUNTER → 2020-12-19 15:58 | Outpatient (CLI) | payer MEDICARE, OTHER, SELFPAY ==
[2020-12-19 16:36] LABS: COVID19 -Nasal RAPID Negative (Negative)
== END ==
PROVIDERS: PCP Internal Medicine; Visit Provider Nurse Practitioner Family
DX: Z20.822 Contact with and (suspected) exposure to COVID-19 (principal)
CPT/HCPCS: 87635

== ENCOUNTER → 2021-04-17 14:52 | Outpatient (CLI) | payer MEDICARE, OTHER, SELFPAY ==
--- NOTE | 2021-04-17 15:08 | DI.RAD.S_ITS ---
PROCEDURE: XR HIP W PEL IF DONE BERNARD MIN 4V INDICATIONS: HIP PAIN TECHNIQUE: AP pelvis with lateral view(s) of the bilateral hip(s). COMPARISON: [facility], , HIP 2V RIGHT, 01/12/2014, 10:51. FINDINGS: Bones: No fractures or dislocations. Pelvic ring appears intact. No suspicious bony lesions. Moderate to severe bilateral degenerative hip joint space narrowing, left greater than right. Minimal periarticular osteophytes are present. No erosions. Soft tissues: The visualized bowel gas pattern is normal. No suspicious soft tissue calcifications. Spinal stimulator is noted. IMPRESSION: Bilateral arthritis. Dictated by: Elda Alan M.D. on 04/17/2021 at 16:50 Approved by: Elda Alan M.D. on 04/17/2021 at 16:51
== END ==
PROVIDERS: PCP Internal Medicine; Referring Provider Internal Medicine; Visit Provider Internal Medicine
DX: M76.892 Other specified enthesopathies of left lower limb, excluding foot (principal); M16.0 Bilateral primary osteoarthritis of hip
CPT/HCPCS: 73522

== ENCOUNTER → 2022-01-26 08:29 | Outpatient (CLI) | payer MEDICARE, OTHER, SELFPAY ==
--- NOTE | 2022-01-26 08:31 | DI.MRI.S_ITS ---
PROCEDURE: MR LUMBAR SPINE WO CON INDICATIONS: LOW BACK PAIN/LEFT SIDED SCIATICA PAIN TECHNIQUE: Noncontrast sagittal T1 spin echo and T2 fast echo, sagittal STIR, and T2 fast spin echo through the lumbar spine. In cases with scoliosis, additional coronal T2 fast spin echo may be performed. COMPARISON: None. FINDINGS: Image quality: Excellent. Alignment and Curvature: Minimal levocurvature. Trace retrolisthesis of L1 on L2 and L2 on L3. Mild anterolisthesis of L4 on L5. Bone Marrow: There is an old moderate to severe T12 compression and an old severe L5 compression. There is a moderate L3 compression with signal abnormality in the central aspect. The signal abnormality is low on T1 and T2 and mildly increased on STIR. Cannot exclude a pathologic fracture. Spinal Cord: Conus medullaris terminates at the top of L2 level. Visualized cord demonstrates normal signal and size. Paraspinous Soft Tissues: No paravertebral masses. T11-T12: No canal stenosis or foraminal stenosis. T12-L1: No canal stenosis or foraminal stenosis. L1-L2: Mild disc bulge. Facet hypertrophy. No canal stenosis or foraminal stenosis. L2-L3: Disc bulge. Facet hypertrophy. Mild canal stenosis. Mild bilateral foraminal stenosis. L3-L4: Prominent disc bulge. Facet hypertrophy. Moderate to severe canal stenosis. Haeo-zj-tyiovrge bilateral foraminal stenosis. L4-L5: Mild anterolisthesis of L4 on L5. Disc bulge. Facet hypertrophy. Moderate canal stenosis. Moderate left foraminal stenosis with mild flattening deformity on the exiting left L4 nerve root. L5-S1: Facet hypertrophy. No canal stenosis or foraminal stenosis. IMPRESSION: 1. 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 2. There is a moderate L3 compression fracture. This may simply be a comminuted subacute compression. However, cannot exclude an underlying pathologic lesion. 3. Diffuse degenerative change. 4. Canal stenosis is moderate to severe at L3-L4 and moderate at L4-L5. Additionally, there is moderate left foraminal stenosis at L4-L5. Comment: Consider lumbar spine MRI with without contrast to evaluate the potential for an underlying pathologic lesion of L3. Comment: An Urgent Findings note was created in PACS to ensure notification of the referring clinician. Dictated by: Augustin Anderson M.D. on 01/27/2022 at 8:39 Approved by: Augustin Anderson M.D. on 01/27/2022 at 8:50
== END ==
PROVIDERS: PCP Internal Medicine; Referring Provider Internal Medicine; Visit Provider Internal Medicine
DX: M80.88XA Other osteoporosis with current pathological fracture, vertebra(e), initial encounter for fracture (principal); M48.061 Spinal stenosis, lumbar region without neurogenic claudication; M47.816 Spondylosis without myelopathy or radiculopathy, lumbar region; M54.42 Lumbago with sciatica, left side; G89.29 Other chronic pain
CPT/HCPCS: 72148

== ENCOUNTER → 2022-01-30 09:25 | Outpatient (CLI) | payer MEDICARE, OTHER, SELFPAY ==
--- NOTE | 2022-01-30 | DI.MRI.S_ITS ---
BREAST MRI OF BOTH BREASTS: 01/30/2022 CLINICAL: Screening MRI. PROCEDURE: MR BREAST BI WO/W CON INDICATIONS: BREAST CANCER SCREENING TECHNIQUE: The patient was placed prone in a dedicated breast imaging coil. Precontrast axial STIR and 3D FLASH without fat saturation sequences were obtained. Both before and after bolus injection of contrast, sequential 1-minute axial 3D FLASH with fat saturation sequences for 3 time points, with subtraction images and maximum intensity projections (MIP's) generated. Delayed sagittal FLASH images with fat saturation were also obtained. Computer-aided detection, including computer algorithm analysis of MRI image data for lesion detection and characterization, pharmacokinetic analysis, with further physician review for interpretation, was performed. COMPARISON: None. FINDINGS: Image quality: Excellent. There is minimal background parenchymal enhancement. Right breast: The right breast demonstrates no abnormal focus, mass, or abnormal enhancement. No axillary or internal mammary chain adenopathy. Saline breast implants are intact. Left breast: The left breast demonstrates no abnormal focus, mass, or abnormal enhancement. No axillary or internal mammary chain adenopathy. Saline breast implants are intact. IMPRESSION: NEGATIVE Annual screening mammogram and MRI is recommended. COMMENT: The imaging literature indicates that a negative contrast breast MRI examination has a high sensitivity and a moderate specificity for detecting and excluding invasive carcinomas to a detection threshold of 3-5 mm; nonetheless, appropriate clinical and mammographic follow-up are recommended. MRI is not sensitive for detecting DCIS (ductal carcinoma in situ) and may not detect large invasive neoplasms that show only minimal enhancement such as mucinous carcinoma. If there are suspicious calcifications or clinically worrisome palpable masses, then biopsy should still be considered. Invasive neoplasms can be hidden by co-existent and benign enhancement caused by mastitis, hormone therapy effects, radiation therapy, , and recent biopsy or surgery. False positive examinations can occur in a number of circumstances, including breasts that have recently been subject to invasive procedures and those that contain atypical ductal hyperplasia, hormonally stimulated glandular tissue, fat necrosis, or radial scars. This exam was interpreted at Station ID: [id number]. Electronically Signed By: Krystian Montes acr/:01/30/2022 16:55:44 letter sent: Normal Exam ACR BI-RADS Category 1: Negative [id number]
== END ==
PROVIDERS: PCP Internal Medicine; Referring Provider Internal Medicine; Visit Provider Internal Medicine
DX: Z12.39 Encounter for other screening for malignant neoplasm of breast (principal); Z98.82 Breast implant status
CPT/HCPCS: 77049; A9579

== ENCOUNTER → 2022-03-03 12:50 | Outpatient (CLI) | payer MEDICARE, OTHER, SELFPAY ==
--- NOTE | 2022-03-03 13:18 | DI.MRI.S_ITS ---
PROCEDURE: MR LUMBAR SPINE WO/W CON INDICATIONS: Wedge compression fracture of third lumbar vertebr TECHNIQUE: Noncontrast sagittal T1 spin echo and T2 fast spin echo, sagittal STIR, axial T1 and T2 fast spin echo through the lumbar spine. In cases with scoliosis, additional coronal T2 fast spin echo may be performed. After the administration of contrast, sagittal and axial T1 spin echo with fat saturation through the lumbar spine. COMPARISON: [facility], MR, MR LUMBAR SPINE WO CON, 01/26/2022, 9:15. [facility], CT, ABDOMEN WITH CONTRAST, 05/27/2013, 12:52. FINDINGS: Image quality: This examination is limited by involuntary motion artifact. Alignment and curvature: There is mild grade 1 anterolisthesis seen at the L4-L5 level. Marrow: Marrow is of normal overall signal. No davon acute fractures are seen. There is a T12 fracture seen, without abnormal STIR signal, with approximately 50% loss of height anteriorly. At the L3 level, there is again seen a compression deformity centrally, with 30-40% loss height. No significant change from the prior. A mild amount of enhancement can be seen within the central L3 level. The L5 level, there is a compression fracture seen within its central to posterior aspect, with 70-80% loss of height, without significant change from the prior. Within the central portion of the L5 level, there is a mild amount of enhancement seen, as on series 11, image 9. Spinal cord: Conus medullaris terminates at the L1 level. Visualized spinal cord demonstrates normal signal, without suspicious enhancement. Paraspinous soft tissues: No paravertebral masses or abnormal enhancement. Multiple levels of degenerative change are seen, which are considered to be similar to the prior recent MRI examination. IMPRESSION: T12, L3, and L5 fractures are seen, which are not significantly changed compared to the prior examination. Areas of mild enhancement can be seen within the central portions of the L3 and L5 vertebral bodies. Although nonspecific, these are felt most likely to be related to an inflammatory healing response. Differential diagnosis includes neoplasm in a patient of this age, yet this is considered to be less likely. No new fracture is seen. Dictated by: Lamine Anderson M.D. on 03/03/2022 at 15:46 Approved by: Lamine Anderson M.D. on 03/03/2022 at 15:52
== END ==
PROVIDERS: PCP Internal Medicine; Referring Provider Internal Medicine; Visit Provider Internal Medicine
DX: S32.030D Wedge compression fracture of third lumbar vertebra, subsequent encounter for fracture with routine healing (principal); Z78.0 Asymptomatic menopausal state
CPT/HCPCS: 72158; 77080; A9579

== ENCOUNTER → 2022-04-03 10:26 | Outpatient (CLI) | payer MEDICARE, OTHER, SELFPAY | PROVIDERS: PCP Internal Medicine; Referring Provider Podiatrist; Visit Provider Podiatrist | DX: Z01.818 Encounter for other preprocedural examination (principal) | CPT/HCPCS: 93005 ==

== ENCOUNTER 2023-08-21 14:30 | Outpatient (RCR) | payer MEDICARE, OTHER, SELFPAY ==
--- NOTE | 2023-04-01 17:00 | PT.OIE ---
Current Diagnoses Unilateral primary osteoarthritis, left hip (04/01/23) Past Medical History (Last Updated 04/18/19 @ 10:09 by CASIMIRO Riojas) ADHD (attention deficit hyperactivity disorder) Ankle pain (2015) Asthma (2012) Complex posttraumatic stress disorder Depression (2015) Frozen shoulder (1992) Frozen shoulder (1992) Frozen shoulder (1993) Hepatitis Hives (2017) Hypothyroidism (1994) Post traumatic stress disorder (PTSD) Rectocele (2013) Shoulder pain (1991) Urinary incontinence (2013) Past Surgical History (Last Reviewed 06/30/18 @ 13:01 by JONNY Ospina) Anesthesia History of breast augmentation (1974) Status post colonoscopy Visit Care Team Role Provider Type Renetta Higginbotham MD Family Provider Physician Primary Care Provider Specialty: Internal Medicine Address: [place], [address] Phone: Email: Sarah Rodriguez PA-C Attending Provider Non-Staff Referring Provider Specialty: General Surgery Address: [address] [place] [address], [id number] Email: Physical Therapy Initial Evaluation PT-OP-A Visit Information Start: 04/01/23 14:20 Freq: Status: Active Protocol: Document 04/01/23 14:32 AB (Rec: 04/01/23 17:38 AB [id number]) Out-Patient Physical Therapy Visit Information Visit Information Visit Type Initial Evaluation Visit Start Time 14:30 Visit Stop Time 15:15 Total Visit Minutes 45 Visit Number 1 PT-OP-B Current Condition Start: 04/01/23 14:20 Freq: Status: Active Protocol: Document 04/01/23 14:32 AB (Rec: 04/01/23 17:38 AB [id number]) Current Condition History of Current Condition Onset Date 3 weeks ago Current Complaints left hip pain History of Current Condition Pt reports she had R FAUZIA ( posterior) in October and L FAUZIA (posterior) 3 weeks ago, but has significant pain in left hip and left knee. She is able to ascend/descend 5 steps with 2 SPC, she report she can walk 50 ft with 4WW before onset of pain. At times her pain refers to her hip, and sometimes down her left leg. She also reports feeling that the stress in her personal life may also be contributing to her symptoms, as she has noticed increased pain with stressful situations (i.e. people arguing, dogs barking, etc). Prior Treatments and Tests PT bilateral FAUZIA as above PT-OP-C Subjective Start: 04/01/23 14:20 Freq: Status: Active Protocol: Document 04/01/23 14:32 AB (Rec: 04/01/23 17:38 AB [id number]) OP-PT Subjective Patient Comments Patient Comments See hx of current condition Patient Questionnaires Lower Extremity Functional Scale LEFS Score 10/80 LEFS Impairment 80 to 99% Impaired (Score 1-16 ) PT-OP-G Mobility & Gait Start: 04/01/23 14:20 Freq: Status: Active Protocol: Document 04/01/23 14:32 AB (Rec: 04/01/23 17:38 AB [id number]) OP Gait Assessment Assistive Devices Assistive Device 4 Wheeled Walker Gait Deviations General Gait Pattern Antalgic,Decreased Stride Length,Decreased Feet Clearance,Flexed Trunk Factors Limiting Gait Function Factors Limiting Gait Function Decreased Strength,Limited Range of Motion,Pain Comments Gait Comments Pt's gait mechanics improved by adjusting heigt of 4WW. She was educated on heel-to-toe gait pattern to normalize mechanics. PT-OP-J Posture/Palpation/Skin Start: 04/01/23 14:20 Freq: Status: Active Protocol: Document 04/01/23 17:38 AB (Rec: 04/01/23 17:40 AB [id number]) Skin Assessment Incisional Assessment Incision Appearance/Comments left posterior FAUZIA incision appears well healed without abnormal swelling or redness PT-OP-K Range of Motion Start: 04/01/23 14:20 Freq: Status: Active Protocol: Document 04/01/23 14:32 AB (Rec: 04/01/23 17:38 AB [id number]) Hip Goniometric Range of Motion Hip Left Active Comments NT due to posterior hip approach precautions; however left hip is grossly limited Right Active Hip ROM WFL Yes Flexion w/Knee Flexed 100 Extension 0 Abduction 20 Internal Rotation 28 External Rotation 16 Comments Pt denies pain PT-OP-M Strength Start: 04/01/23 14:20 Freq: Status: Active Protocol: Document 04/01/23 14:32 AB (Rec: 04/01/23 17:38 AB [id number]) Hip Strength Hip Manual Muscle Testing Right Flexion (L2) 4- Good- Extension (S1) 3+ Fair+ Abduction 3+ Fair+ Adduction 3+ Fair+ External Rotation 4- Good- Internal Rotation 4- Good- Left Comments NT due to posterior hip precautions, however grossly impaired Knee Strength Knee Manual Muscle Testing Right Flexion (S2) 4 Good Extension (L3) 4 Good Left Flexion (S2) 4 Good Extension (L3) 4 Good PT-OP-Q Treatments Start: 04/01/23 14:20 Freq: Status: Active Protocol: Document 04/01/23 14:32 AB (Rec: 04/01/23 17:38 AB [id number]) Self-Care/Home Management Treatment Education Patient Education Body Mechanics,Pain Management Other Education Pt educated on benefits of walking program, maintaining precautions until surgeon clears the pt, and pain management including use of modalities to improve symptoms . PT-OP-T Assessment and Plan Start: 04/01/23 14:20 Freq: Status: Active Protocol: Document 04/01/23 14:32 AB (Rec: 04/01/23 17:38 AB [id number]) Physical Therapy Assessment Rehab Potential Rehabilitation Potential Fair Evaluation Complexity Number of Personal Factors/Comorbidities 3 or More Number of Body Systems Impaired 1-2 Clinical Presentation at Evaluation Stable Impairments Impairments Activity Tolerance,Balance, Gait,Pain,ROM,Soft Tissue Mobility,Strength Goals Eight Impairment Gait Short Term Goal (STG) Pt to walk household distances independently/mod independent with LRAD to show improving gait and tolerance to activity to return to PLOF. STG Duration 4 Nursing Home Goal (LTG) Pt to walk community distances independently/mod independent with LRAD to show improving gait and tolerance to activity to return to PLOF. LTG Duration 8 Seven Impairment Hip AROM Short Term Goal (STG) Pt's bilateral hip ER to improve to 20 or better to show improving AROM to perform functional activities. STG Duration 4 Occ Therapist Goal (LTG) Pt's bilateral hip ER to improve to 25 or better to show improving AROM to perform functional activities. LTG Duration 8 Six Impairment Hip AROM Short Term Goal (STG) Pt's bilateral hip IR to improve to 30 or better to show improving AROM to perform functional activities. STG Duration 4 Occ Therapist Goal (LTG) Pt's bilateral hip IR to improve to 35 or better to show improving AROM to perform functional activities. LTG Duration 8 Five Impairment Hip AROM Short Term Goal (STG) Pt's bilateral hip ABD to improve to 25 or better to show improving AROM to perform functional activities. STG Duration 4 Occ Therapist Goal (LTG) Pt's bilateral hip flexion to improve to 30 or better to show improving AROM to perform functional activities. LTG Duration 8 Four Impairment Hip AROM Short Term Goal (STG) Pt's bilateral hip flexion to improve to 105 or better to show improving AROM to perform functional activities. STG Duration 4 Nursing Home Goal (LTG) Pt's bilateral hip flexion to improve to 115 or better to show improving AROM to perform functional activities. LTG Duration 8 Three Impairment Pain Short Term Goal (STG) Pt to report bilateral hip pain of 5/10 or better with activity to show resolving pain symptoms. STG Duration 4 Nursing Home Goal (LTG) Pt to report bilateral hip pain of 2/10 or better with activity to show resolving pain symptoms. LTG Duration 8 Two Impairment MMT Short Term Goal (STG) Pt's gross BLE MMT scores to improve to 4-/5 or better to show improving strength to improve ability to perform functional activities. STG Duration 4 Occ Therapist Goal (LTG) Pt's gross BLE MMT scores to improve to 4+/10 or better to show improving strength to improve ability to perform functional activities. LTG Duration 8 One Impairment Patient Questionnaire Short Term Goal (STG) Pt's LEFS score to improve to 25/80 or better to show improving subjective report of symptoms for an improved QOL. STG Duration 4 Nursing Home Goal (LTG) Pt's LEFS score to improve to 45/80 or better to show improving subjective report of symptoms for an improved QOL. LTG Duration 8 Assessment Summary Assessment Subha Morris is a 77 year old female patient who is s/p left FAUZIA posterior approach performed 3 weeks ago (pt unable to provide an exact date). She presents with deficits consistent with this surgical procedure which have persisted including ROM deficits, muscular weakness, gait abnormalities and pain symptoms as detailed above. Based on today's findings, the pt would benefit from skilled PT interventions to improve these in order to return to her PLOF, including recreational activities. HEP was not established today due to time constraints, however the pt was educated on initating a walking program. Physical Therapy Plan Frequency and Duration Frequency of Treatment 2x/Week Duration of treatment (weeks) 8 Plan of Care Start Date 04/01/23 Plan of Care End Date 05/27/23 Therapeutic Interventions Therapeutic Interventions Balance Training,Gait Training ,Home Exercise Program,Joint Mobilizations,Manual Therapy, Neuromuscular Re-education, Patient/Caregiver Education, Self-Care/Home Management,Soft Tissue Mobilization,Taping, Therapeutic Activities, Therapeutic Exercises Modalities Cold Pack/Ice Massage,Electric Stimulation,Hot Packs Next Visit Focus/Plan Next Note Type Treatment Note Next Visit Plan Establish HEP focusing on LE strength and mobility within precautions. Pt may also benefit from gait and balance training.
--- NOTE | 2023-04-01 17:00 | PT.OPPOC ---
Physical, Occupational & Speech Therapy At [facility] Current Diagnoses Unilateral primary osteoarthritis, left hip (04/01/23) Visit Care Team Role Provider Type Renetta Higginbotham MD Family Provider Physician Primary Care Provider Specialty: Internal Medicine Address: [place], [address] Phone: Email: Sarah Rodriguez PA-C Attending Provider Non-Staff Referring Provider Specialty: General Surgery Address: [address] [place] [address], [address] Email: Plan Of Care PT-OP-T Assessment and Plan Start: 04/01/23 14:20 Freq: Status: Active Protocol: Document 04/01/23 14:32 AB (Rec: 04/01/23 17:38 AB [id number]) Physical Therapy Assessment Rehab Potential Rehabilitation Potential Fair Evaluation Complexity Number of Personal Factors/Comorbidities 3 or More Number of Body Systems Impaired 1-2 Clinical Presentation at Evaluation Stable Impairments Impairments Activity Tolerance,Balance, Gait,Pain,ROM,Soft Tissue Mobility,Strength Goals Eight Impairment Gait Short Term Goal (STG) Pt to walk household distances independently/mod independent with LRAD to show improving gait and tolerance to activity to return to PLOF. STG Duration 4 Skilled Nursing Goal (LTG) Pt to walk community distances independently/mod independent with LRAD to show improving gait and tolerance to activity to return to PLOF. LTG Duration 8 Seven Impairment Hip AROM Short Term Goal (STG) Pt's bilateral hip ER to improve to 20 or better to show improving AROM to perform functional activities. STG Duration 4 Skilled Nursing Goal (LTG) Pt's bilateral hip ER to improve to 25 or better to show improving AROM to perform functional activities. LTG Duration 8 Six Impairment Hip AROM Short Term Goal (STG) Pt's bilateral hip IR to improve to 30 or better to show improving AROM to perform functional activities. STG Duration 4 Tube Test Technician Goal (LTG) Pt's bilateral hip IR to improve to 35 or better to show improving AROM to perform functional activities. LTG Duration 8 Five Impairment Hip AROM Short Term Goal (STG) Pt's bilateral hip ABD to improve to 25 or better to show improving AROM to perform functional activities. STG Duration 4 Tube Test Technician Goal (LTG) Pt's bilateral hip flexion to improve to 30 or better to show improving AROM to perform functional activities. LTG Duration 8 Four Impairment Hip AROM Short Term Goal (STG) Pt's bilateral hip flexion to improve to 105 or better to show improving AROM to perform functional activities. STG Duration 4 Skilled Nursing Goal (LTG) Pt's bilateral hip flexion to improve to 115 or better to show improving AROM to perform functional activities. LTG Duration 8 Three Impairment Pain Short Term Goal (STG) Pt to report bilateral hip pain of 5/10 or better with activity to show resolving pain symptoms. STG Duration 4 Tube Test Technician Goal (LTG) Pt to report bilateral hip pain of 2/10 or better with activity to show resolving pain symptoms. LTG Duration 8 Two Impairment MMT Short Term Goal (STG) Pt's gross BLE MMT scores to improve to 4-/5 or better to show improving strength to improve ability to perform functional activities. STG Duration 4 Skilled Nursing Goal (LTG) Pt's gross BLE MMT scores to improve to 4+/10 or better to show improving strength to improve ability to perform functional activities. LTG Duration 8 One Impairment Patient Questionnaire Short Term Goal (STG) Pt's LEFS score to improve to 25/80 or better to show improving subjective report of symptoms for an improved QOL. STG Duration 4 Tube Test Technician Goal (LTG) Pt's LEFS score to improve to 45/80 or better to show improving subjective report of symptoms for an improved QOL. LTG Duration 8 Assessment Summary Assessment Subha Morris is a 77 year old female patient who is s/p left FAUZIA posterior approach performed 3 weeks ago (pt unable to provide an exact date). She presents with deficits consistent with this surgical procedure which have persisted including ROM deficits, muscular weakness, gait abnormalites and pain symptoms as detailed above. Based on today's findings, the pt would benefit from skilled PT interventions to improve these in order to return to her PLOF, including recreational activities. HEP was not established today due to time constraints, however the pt was educated on initating a walking program. Physical Therapy Plan Frequency and Duration Frequency of Treatment 2x/Week Duration of treatment (weeks) 8 Plan of Care Start Date 04/01/23 Plan of Care End Date 05/27/23 Therapeutic Interventions Therapeutic Interventions Balance Training,Gait Training ,Home Exercise Program,Joint Mobilizations,Manual Therapy, Neuromuscular Re-education, Patient/Caregiver Education, Self-Care/Home Management,Soft Tissue Mobilization,Taping, Therapeutic Activities, Therapeutic Exercises Modalities Cold Pack/Ice Massage,Electric Stimulation,Hot Packs Next Visit Focus/Plan Next Note Type Treatment Note Next Visit Plan Establish HEP focusing on LE strength and mobility within precautions. Pt may also benefit from gait and balance training. Plan of Care Dates Plan of Care Start Date 04/01/23 Plan of Care End Date 05/27/23 Electronically Signed by: Wayne Vargas, PT 04/02/23 [id number] If you are in agreement with this Plan of Care, please return a signed and dated copy. I have reviewed this Plan of Care and certify that the skilled therapy services above are required to meet the patient?s needs. Physician Signature Date Printed Name and Credentials Clinical Instructor Signature Printed Name and Credentials
--- NOTE | 2023-04-03 11:24 | PT-OP ANOTE ---
Pt left connect text message cancelling today's and next 2 appts, out of town.
--- NOTE | 2023-04-15 17:15 | PT.OTN ---
Current Diagnoses Unilateral primary osteoarthritis, left hip (04/15/23) Physical Therapy Treatment Note PT-OP-A Visit Information Start: 04/01/23 14:20 Freq: Status: Active Protocol: Document 04/15/23 16:28 AB (Rec: 04/15/23 17:15 AB [id number]) Out-Patient Physical Therapy Visit Information Visit Information Visit Type Progress Note Visit Start Time 14:30 Visit Stop Time 15:15 Total Visit Minutes 45 Visit Number 2 Evaluation Information Evaluation Date 04/01/23 PT-OP-B Current Condition Start: 04/01/23 14:20 Freq: Status: Active Protocol: Document 04/01/23 14:32 AB (Rec: 04/01/23 17:38 AB [id number]) Current Condition History of Current Condition Onset Date 3 weeks ago Current Complaints left hip pain History of Current Condition Pt reports she had R FAUZIA ( posterior) in October and L FAUZIA (posterior) 3 weeks ago, but has significant pain in left hip and left knee. She is able to ascend/descend 5 steps with 2 SPC, she report she can walk 50 ft with 4WW before onset of pain. At times her pain refers to her hip, and sometimes down her left leg. She also reports feeling that the stress in her personal life may also be contributing to her symptoms, as she has noticed increased pain with stressful situations (i.e. people arguing, dogs barking, etc). Prior Treatments and Tests PT bilateral FAUZIA as above PT-OP-C Subjective Start: 04/01/23 14:20 Freq: Status: Active Protocol: Document 04/15/23 16:28 AB (Rec: 04/15/23 17:15 AB [id number]) OP-PT Subjective Patient Comments Patient Comments The pt reports a significant improvement in her symptoms after taking a vacation last week, as she feels like it got rid of a lot of stress. She also reports she has been walking a lot more. Patient Reported Progress Improving PT-OP-G Mobility & Gait Start: 04/01/23 14:20 Freq: Status: Active Protocol: Document 04/01/23 14:32 AB (Rec: 04/01/23 17:38 AB [id number]) OP Gait Assessment Assistive Devices Assistive Device 4 Wheeled Walker Gait Deviations General Gait Pattern Antalgic,Decreased Stride Length,Decreased Feet Clearance,Flexed Trunk Factors Limiting Gait Function Factors Limiting Gait Function Decreased Strength,Limited Range of Motion,Pain Comments Gait Comments Pt's gait mechanics improved by adjusting heigt of 4WW. She was educated on heel-to-toe gait pattern to normalize mechanics. PT-OP-J Posture/Palpation/Skin Start: 04/01/23 14:20 Freq: Status: Active Protocol: Document 04/01/23 17:38 AB (Rec: 04/01/23 17:40 AB [id number]) Skin Assessment Incisional Assessment Incision Appearance/Comments left posterior FAUZIA incision appears well healed without abnormal swelling or redness PT-OP-K Range of Motion Start: 04/01/23 14:20 Freq: Status: Active Protocol: Document 04/01/23 14:32 AB (Rec: 04/01/23 17:38 AB [id number]) Hip Goniometric Range of Motion Hip Left Active Comments NT due to posterior hip approach precautions; however left hip is grossly limited Right Active Hip ROM WFL Yes Flexion w/Knee Flexed 100 Extension 0 Abduction 20 Internal Rotation 28 External Rotation 16 Comments Pt denies pain PT-OP-M Strength Start: 04/01/23 14:20 Freq: Status: Active Protocol: Document 04/01/23 14:32 AB (Rec: 04/01/23 17:38 AB [id number]) Hip Strength Hip Manual Muscle Testing Right Flexion (L2) 4- Good- Extension (S1) 3+ Fair+ Abduction 3+ Fair+ Adduction 3+ Fair+ External Rotation 4- Good- Internal Rotation 4- Good- Left Comments NT due to posterior hip precautions, however grossly impaired Knee Strength Knee Manual Muscle Testing Right Flexion (S2) 4 Good Extension (L3) 4 Good Left Flexion (S2) 4 Good Extension (L3) 4 Good PT-OP-Q Treatments Start: 04/01/23 14:20 Freq: Status: Active Protocol: Document 04/15/23 16:28 AB (Rec: 04/15/23 17:15 AB [id number]) Cardio Equipment Recumbent Elliptical ([employer]) Duration (Minutes) 5 Resistance 1 Therapeutic Exercises Sitting Exercises Clamshells Side bilateral Resistance org TB Reps/Minutes 2x15 Hip ADD Sitting Exercise Name Hip ADD ball squeeze Side bilateral Equipment Used blue ball Reps/Minutes 2x15 Standing Exercises Heel raises Side bilateral Reps/Minutes 2x15 Comments BUE support Marching Standing Exercise Name seated>standing Side bilateral Reps/Minutes 2x15 ea Comments BUE support Gait Training Gait Activity Normal gait Description normal gait Device Used SPC>no AD Level of Assistance IND Surface carpet, tile Distance/Duration full lap (160') x2 Treatment Focus Proper gait technique and mechanics with and without SPC Comments Pt demonstrates good 2pt gait pattern, but mild antalgic gait noted without SPC. No other significant abnormalities noted Self-Care/Home Management Treatment Education Patient Education Body Mechanics,Home Exercise Program,Pain Management PT-OP-T Assessment and Plan Start: 04/01/23 14:20 Freq: Status: Active Protocol: Document 04/15/23 16:28 AB (Rec: 04/15/23 17:15 AB [id number]) Physical Therapy Assessment Goals Eight Impairment Gait Short Term Goal (STG) Pt to walk household distances independently/mod independent with LRAD to show improving gait and tolerance to activity to return to PLOF. STG Duration 4 Insights Strategist Goal (LTG) Pt to walk community distances independently/mod independent with LRAD to show improving gait and tolerance to activity to return to PLOF. LTG Duration 8 Seven Impairment Hip AROM Short Term Goal (STG) Pt's bilateral hip ER to improve to 20 or better to show improving AROM to perform functional activities. STG Duration 4 Insights Strategist Goal (LTG) Pt's bilateral hip ER to improve to 25 or better to show improving AROM to perform functional activities. LTG Duration 8 Six Impairment Hip AROM Short Term Goal (STG) Pt's bilateral hip IR to improve to 30 or better to show improving AROM to perform functional activities. STG Duration 4 Insights Strategist Goal (LTG) Pt's bilateral hip IR to improve to 35 or better to show improving AROM to perform functional activities. LTG Duration 8 Five Impairment Hip AROM Short Term Goal (STG) Pt's bilateral hip ABD to improve to 25 or better to show improving AROM to perform functional activities. STG Duration 4 Insights Strategist Goal (LTG) Pt's bilateral hip flexion to improve to 30 or better to show improving AROM to perform functional activities. LTG Duration 8 Four Impairment Hip AROM Short Term Goal (STG) Pt's bilateral hip flexion to improve to 105 or better to show improving AROM to perform functional activities. STG Duration 4 [facility] Goal (LTG) Pt's bilateral hip flexion to improve to 115 or better to show improving AROM to perform functional activities. LTG Duration 8 Three Impairment Pain Short Term Goal (STG) Pt to report bilateral hip pain of 5/10 or better with activity to show resolving pain symptoms. STG Duration 4 [facility] Goal (LTG) Pt to report bilateral hip pain of 2/10 or better with activity to show resolving pain symptoms. LTG Duration 8 Two Impairment MMT Short Term Goal (STG) Pt's gross BLE MMT scores to improve to 4-/5 or better to show improving strength to improve ability to perform functional activities. STG Duration 4 [facility] Goal (LTG) Pt's gross BLE MMT scores to improve to 4+/10 or better to show improving strength to improve ability to perform functional activities. LTG Duration 8 One Impairment Patient Questionnaire Short Term Goal (STG) Pt's LEFS score to improve to 25/80 or better to show improving subjective report of symptoms for an improved QOL. STG Duration 4 Insights Strategist Goal (LTG) Pt's LEFS score to improve to 45/80 or better to show improving subjective report of symptoms for an improved QOL. LTG Duration 8 Assessment Summary Assessment The focus of today's session was on establishing HEP and ensuring proper gait mechanics with SPC. The pt was given seated and standing exercises in order to begin to build up her tolerance to standing. She denied symptoms throughout session, but reported mild muscular fatigue. The pt also demonstrated good 2pt gait pattern with SPC, but had mildly antalgic gait without SPC, therefore SPC is recommended when ambulating longer distances. The pt would benefit from continued progression next visit as tolerated. Physical Therapy Plan Frequency and Duration Frequency of Treatment 2x/Week Duration of treatment (weeks) 8 Plan of Care Start Date 04/01/23 Plan of Care End Date 05/27/23 Therapeutic Interventions Therapeutic Interventions Balance Training,Gait Training ,Home Exercise Program,Joint Mobilizations,Manual Therapy, Neuromuscular Re-education, Patient/Caregiver Education, Self-Care/Home Management,Soft Tissue Mobilization,Taping, Therapeutic Activities, Therapeutic Exercises Modalities Cold Pack/Ice Massage,Electric Stimulation,Hot Packs Next Visit Focus/Plan Next Note Type Treatment Note Next Visit Plan Review HEP. Add LE strengthening exercises as tolerated.
--- NOTE | 2023-04-17 09:24 | PT-OP ANOTE ---
Pt did not show for today's 9am appt. AIR COMPRESSOR MECHANIC called her, was told she called and cancelled today's appt due grandchildren being out of school today and no one home to watch them. Pt stated hope doesn't acrue a NS fee due calling previously to cancel. AIR COMPRESSOR MECHANIC reminded cancellation policy agreed to attending at least 50% appts scheduled but ideally all to support progress wanting us to help her with. AIR COMPRESSOR MECHANIC notified schedulers of stated called in advance but not see logged as cancelled.
--- NOTE | 2023-04-21 10:15 | PT-OP ANOTE ---
Pt DNS for today's appt. PLANT UTILITY PERSON called pt and she misread her calendar (looked today at wrong week or grandchild's appt instead) and didn't realize missed her appt today. PLANT UTILITY PERSON/pt confirmed upcoming PT appts on @ 10 and 04/29 @ 1345, pt verbalized seeing correctly on her schedule at home. PLANT UTILITY PERSON discussed would like to assist her in improvement progression with her therapy and importance of attendance to do so, pt verbalized in agreement. Pt asked if can set up more appts beyond 04/29 for continued progress, PLANT UTILITY PERSON stated can do this when comes in at next appt, will send pt message up to schedulers at that time, 04/23/23.
--- NOTE | 2023-04-23 10:45 | PT.OTN ---
Current Diagnoses Unilateral primary osteoarthritis, left hip (04/23/23) Physical Therapy Treatment Note PT-OP-A Visit Information Start: 04/01/23 14:20 Freq: Status: Active Protocol: Document 04/23/23 10:02 SP (Rec: 04/23/23 10:48 SP [id number]) Out-Patient Physical Therapy Visit Information Visit Information Visit Type Treatment Note Visit Start Time 10:02 Visit Stop Time 10:45 Total Visit Minutes 43 Visit Number 3 Number of PHYSICAL CHEMISTRY TEACHER Visits 1 Evaluation Information Evaluation Date 04/01/23 PT-OP-B Current Condition Start: 04/01/23 14:20 Freq: Status: Active Protocol: Document 04/01/23 14:32 AB (Rec: 04/01/23 17:38 AB [id number]) Current Condition History of Current Condition Onset Date 3 weeks ago Current Complaints left hip pain History of Current Condition Pt reports she had R FAUZIA ( posterior) in October and L FAUZIA (posterior) 3 weeks ago, but has significant pain in left hip and left knee. She is able to ascend/descend 5 steps with 2 SPC, she report she can walk 50 ft with 4WW before onset of pain. At times her pain refers to her hip, and sometimes down her left leg. She also reports feeling that the stress in her personal life may also be contributing to her symptoms, as she has noticed increased pain with stressful situations (i.e. people arguing, dogs barking, etc). Prior Treatments and Tests PT bilateral FAUZIA as above PT-OP-C Subjective Start: 04/01/23 14:20 Freq: Status: Active Protocol: Document 04/23/23 10:02 SP (Rec: 04/23/23 10:48 SP [id number]) OP-PT Subjective Patient Comments Patient Comments Pt arrived no use of SPC, stated drove here for 1st time . She is moves slow still and stated still hears her nurse after surgery reminding her not to fall. PT-OP-G Mobility & Gait Start: 04/01/23 14:20 Freq: Status: Active Protocol: Document 04/01/23 14:32 AB (Rec: 04/01/23 17:38 AB [id number]) OP Gait Assessment Assistive Devices Assistive Device 4 Wheeled Walker Gait Deviations General Gait Pattern Antalgic,Decreased Stride Length,Decreased Feet Clearance,Flexed Trunk Factors Limiting Gait Function Factors Limiting Gait Function Decreased Strength,Limited Range of Motion,Pain Comments Gait Comments Pt's gait mechanics improved by adjusting heigt of 4WW. She was educated on heel-to-toe gait pattern to normalize mechanics. PT-OP-J Posture/Palpation/Skin Start: 04/01/23 14:20 Freq: Status: Active Protocol: Document 04/01/23 17:38 AB (Rec: 04/01/23 17:40 AB [id number]) Skin Assessment Incisional Assessment Incision Appearance/Comments left posterior FAUZIA incision appears well healed without abnormal swelling or redness PT-OP-K Range of Motion Start: 04/01/23 14:20 Freq: Status: Active Protocol: Document 04/01/23 14:32 AB (Rec: 04/01/23 17:38 AB [id number]) Hip Goniometric Range of Motion Hip Left Active Comments NT due to posterior hip approach precautions; however left hip is grossly limited Right Active Hip ROM WFL Yes Flexion w/Knee Flexed 100 Extension 0 Abduction 20 Internal Rotation 28 External Rotation 16 Comments Pt denies pain PT-OP-M Strength Start: 04/01/23 14:20 Freq: Status: Active Protocol: Document 04/01/23 14:32 AB (Rec: 04/01/23 17:38 AB [id number]) Hip Strength Hip Manual Muscle Testing Right Flexion (L2) 4- Good- Extension (S1) 3+ Fair+ Abduction 3+ Fair+ Adduction 3+ Fair+ External Rotation 4- Good- Internal Rotation 4- Good- Left Comments NT due to posterior hip precautions, however grossly impaired Knee Strength Knee Manual Muscle Testing Right Flexion (S2) 4 Good Extension (L3) 4 Good Left Flexion (S2) 4 Good Extension (L3) 4 Good PT-OP-Q Treatments Start: 04/01/23 14:20 Freq: Status: Active Protocol: Document 04/23/23 10:02 SP (Rec: 04/23/23 10:48 SP [id number]) Cardio Equipment Recumbent Stepper ([employer]) Duration (Minutes) 6 Resistance 1 Seat Position 11 Other LEs only- cued knees ABD & // with feet Therapeutic Exercises Sitting Exercises Clamshells Side bilateral Resistance org TB Reps/Minutes 5 reps x3 sets Comments cued rest between sets for recovery and lessen hip pain later Hip ADD Sitting Exercise Name Hip ADD ball squeeze Side bilateral Equipment Used blue ball Reps/Minutes 5 reps x3 sets Comments cued rest between sets for recovery and lessen hip pain later Standing Exercises hip ext Standing Exercise Name added to HEP Side bilateral Resistance AROM Equipment Used BUE //bar support Reps/Minutes 5 reps x3 sets Comments cued tall posture, slow controlled hip abd Standing Exercise Name added to HEP Side bilateral Resistance aROM Equipment Used BUE //bar support Reps/Minutes 5 reps x3 sets Comments cued tall posture, slow controlled Heel raises Side bilateral Equipment Used No UE support, in //bars Reps/Minutes 2x15 Comments cued slow for stability recovery Marching Standing Exercise Name standing Side bilateral Equipment Used in //bars, no UE support Reps/Minutes 2x15 ea Gait Training Gait Activity Normal gait Description normal gait Device Used no AD Level of Assistance IND Surface tile Distance/Duration hallway 80 ft (length) x2 laps (320ft total) Treatment Focus Proper gait technique and mechanics Comments Cued increase KYE, center trunk for stability, increase ER for //feet (tends to hip IR L>R). Neuro Re-Education Treatment Balance Activities directional stepping Details fwd, lateral, backward Equipment near hallway rail Reps/Duration 20 ft x4 reps Comments cued increase trail LE lateral for decrease scuffing. tandem stance Surface floor Comments LLE fwd 27 sec- before closed eyes and LOB self recovery contact rail. RLE fwd 30 sec PT-OP-T Assessment and Plan Start: 04/01/23 14:20 Freq: Status: Active Protocol: Document 04/23/23 10:02 SP (Rec: 04/23/23 10:48 SP [id number]) Physical Therapy Assessment Goals Eight Impairment Gait Short Term Goal (STG) Pt to walk household distances independently/mod independent with LRAD to show improving gait and tolerance to activity to return to PLOF. STG Duration 4 Halfway Goal (LTG) Pt to walk community distances independently/mod independent with LRAD to show improving gait and tolerance to activity to return to PLOF. LTG Duration 8 Seven Impairment Hip AROM Short Term Goal (STG) Pt's bilateral hip ER to improve to 20 or better to show improving AROM to perform functional activities. STG Duration 4 Halfway Goal (LTG) Pt's bilateral hip ER to improve to 25 or better to show improving AROM to perform functional activities. LTG Duration 8 Six Impairment Hip AROM Short Term Goal (STG) Pt's bilateral hip IR to improve to 30 or better to show improving AROM to perform functional activities. STG Duration 4 Halfway Goal (LTG) Pt's bilateral hip IR to improve to 35 or better to show improving AROM to perform functional activities. LTG Duration 8 Five Impairment Hip AROM Short Term Goal (STG) Pt's bilateral hip ABD to improve to 25 or better to show improving AROM to perform functional activities. STG Duration 4 Halfway Goal (LTG) Pt's bilateral hip flexion to improve to 30 or better to show improving AROM to perform functional activities. LTG Duration 8 Four Impairment Hip AROM Short Term Goal (STG) Pt's bilateral hip flexion to improve to 105 or better to show improving AROM to perform functional activities. STG Duration 4 Halfway Goal (LTG) Pt's bilateral hip flexion to improve to 115 or better to show improving AROM to perform functional activities. LTG Duration 8 Three Impairment Pain Short Term Goal (STG) Pt to report bilateral hip pain of 5/10 or better with activity to show resolving pain symptoms. STG Duration 4 Tipple Oiler Goal (LTG) Pt to report bilateral hip pain of 2/10 or better with activity to show resolving pain symptoms. LTG Duration 8 Two Impairment MMT Short Term Goal (STG) Pt's gross BLE MMT scores to improve to 4-/5 or better to show improving strength to improve ability to perform functional activities. STG Duration 4 Tipple Oiler Goal (LTG) Pt's gross BLE MMT scores to improve to 4+/10 or better to show improving strength to improve ability to perform functional activities. LTG Duration 8 One Impairment Patient Questionnaire Short Term Goal (STG) Pt's LEFS score to improve to 25/80 or better to show improving subjective report of symptoms for an improved QOL. STG Duration 4 Tipple Oiler Goal (LTG) Pt's LEFS score to improve to 45/80 or better to show improving subjective report of symptoms for an improved QOL. LTG Duration 8 Assessment Summary Assessment Tx focused on HEP review for confidence and form, pt tires quickly adjusted lower reps and increase sets with good response and better understanding performance. Added standing hip abd and extension AROM for standing progression in strength for more functional gait without AD support. Pt improved WB into LLE with noted quad and glut fac after ther ex and various direction stepping. Encourage pt to use her SPC for added stability for safety and energy conservation. Physical Therapy Plan Frequency and Duration Frequency of Treatment 2x/Week Duration of treatment (weeks) 8 Plan of Care Start Date 04/01/23 Plan of Care End Date 05/27/23 Therapeutic Interventions Therapeutic Interventions Balance Training,Gait Training ,Home Exercise Program,Joint Mobilizations,Manual Therapy, Neuromuscular Re-education, Patient/Caregiver Education, Self-Care/Home Management,Soft Tissue Mobilization,Taping, Therapeutic Activities, Therapeutic Exercises Modalities Cold Pack/Ice Massage,Electric Stimulation,Hot Packs Next Visit Focus/Plan Next Note Type Treatment Note Next Visit Plan Review HEP: added hip abd, ext last. Review SPC use tonormalize gait and equal stance time BLEs. Use mirror for self feedback performance. POC: Add LE strengthening exercises as tolerated.
--- NOTE | 2023-04-27 15:20 | PT.OTN ---
Current Diagnoses Unilateral primary osteoarthritis, left hip (04/27/23) Physical Therapy Treatment Note PT-OP-A Visit Information Start: 04/01/23 14:20 Freq: Status: Active Protocol: Document 04/27/23 14:39 SP (Rec: 04/27/23 16:18 SP [id number]) Out-Patient Physical Therapy Visit Information Visit Information Visit Type Treatment Note Visit Start Time 14:33 Visit Stop Time 15:20 Total Visit Minutes 47 Visit Number 4 Number of PRODUCT SUPPORT SPECIALIST Visits 2 Evaluation Information Evaluation Date 04/01/23 PT-OP-B Current Condition Start: 04/01/23 14:20 Freq: Status: Active Protocol: Document 04/01/23 14:32 AB (Rec: 04/01/23 17:38 AB [id number]) Current Condition History of Current Condition Onset Date 3 weeks ago Current Complaints left hip pain History of Current Condition Pt reports she had R FAUZIA ( posterior) in October and L FAUZIA (posterior) 3 weeks ago, but has significant pain in left hip and left knee. She is able to ascend/descend 5 steps with 2 SPC, she report she can walk 50 ft with 4WW before onset of pain. At times her pain refers to her hip, and sometimes down her left leg. She also reports feeling that the stress in her personal life may also be contributing to her symptoms, as she has noticed increased pain with stressful situations (i.e. people arguing, dogs barking, etc). Prior Treatments and Tests PT bilateral FAUZIA as above PT-OP-C Subjective Start: 04/01/23 14:20 Freq: Status: Active Protocol: Document 04/27/23 14:39 SP (Rec: 04/27/23 16:18 SP [id number]) OP-PT Subjective Patient Comments Patient Comments Pt reports went out for a meal recently and when sitting, her R hip started spasming and had to stand up and walk around and went away. She asked why did it happen. She reports thinks sits to much so getting up every 30 min, compliant with HEP. I thought I was going to be alot better /back to normal as told by physician by now. I planned to walk with teenage grandchildren trick or treating and can't right now and not sure what I am going to do. Pt reports she is also stressed over new/world events. PT-OP-G Mobility & Gait Start: 04/01/23 14:20 Freq: Status: Active Protocol: Document 04/01/23 14:32 AB (Rec: 04/01/23 17:38 AB [id number]) OP Gait Assessment Assistive Devices Assistive Device 4 Wheeled Walker Gait Deviations General Gait Pattern Antalgic,Decreased Stride Length,Decreased Feet Clearance,Flexed Trunk Factors Limiting Gait Function Factors Limiting Gait Function Decreased Strength,Limited Range of Motion,Pain Comments Gait Comments Pt's gait mechanics improved by adjusting heigt of 4WW. She was educated on heel-to-toe gait pattern to normalize mechanics. PT-OP-J Posture/Palpation/Skin Start: 04/01/23 14:20 Freq: Status: Active Protocol: Document 04/01/23 17:38 AB (Rec: 04/01/23 17:40 AB [id number]) Skin Assessment Incisional Assessment Incision Appearance/Comments left posterior FAUZIA incision appears well healed without abnormal swelling or redness PT-OP-K Range of Motion Start: 04/01/23 14:20 Freq: Status: Active Protocol: Document 04/01/23 14:32 AB (Rec: 04/01/23 17:38 AB [id number]) Hip Goniometric Range of Motion Hip Left Active Comments NT due to posterior hip approach precautions; however left hip is grossly limited Right Active Hip ROM WFL Yes Flexion w/Knee Flexed 100 Extension 0 Abduction 20 Internal Rotation 28 External Rotation 16 Comments Pt denies pain PT-OP-M Strength Start: 04/01/23 14:20 Freq: Status: Active Protocol: Document 04/01/23 14:32 AB (Rec: 04/01/23 17:38 AB [id number]) Hip Strength Hip Manual Muscle Testing Right Flexion (L2) 4- Good- Extension (S1) 3+ Fair+ Abduction 3+ Fair+ Adduction 3+ Fair+ External Rotation 4- Good- Internal Rotation 4- Good- Left Comments NT due to posterior hip precautions, however grossly impaired Knee Strength Knee Manual Muscle Testing Right Flexion (S2) 4 Good Extension (L3) 4 Good Left Flexion (S2) 4 Good Extension (L3) 4 Good PT-OP-Q Treatments Start: 04/01/23 14:20 Freq: Status: Active Protocol: Document 04/27/23 14:39 SP (Rec: 04/27/23 16:18 SP [id number]) Cardio Equipment Recumbent Stepper (Sci-Fit) Duration (Minutes) 6 Resistance 1 Seat Position 11 Other LEs only- cued knees ABD & // with feet Therapeutic Exercises Supine Exercises bridge Supine Exercise Name reviewed stated past HEP still doing at home Resistance AROM Reps/Minutes 5 reps x2 Comments cued knees //with feet, good form clamshell Supine Exercise Name added to HEP Side bilateral Resistance #2 orange TB Reps/Minutes x10 Comments reports feels fine, little effort but I think would be good Sidelying Exercises clamshell Sidelying Exercise Name added to HEP Side bilateral Resistance AROM Reps/Minutes 2x10 each side Comments this feels fine, little tender on side but is ok, I sleep on side little Sitting Exercises sit<> stands Sitting Exercise Name ed scoot fwd front chair, feet underneath, nose over toes arms fwd asc/desc Resistance BUE on chair arms>1 UE> no UEs (painfree) Equipment Used mesh chair +blue foam> mesh chair> large chair Reps/Minutes 10, 10, 3 reps large chair Comments improved hip hinge, little momentum but improve asc/desc Standing Exercises hip ext Standing Exercise Name HEP reviewed Side bilateral Resistance AROM Equipment Used BUE //bar support Reps/Minutes 5 reps x3 sets Comments cued tall posture, slow controlled hip abd Standing Exercise Name HEP reviewed Side bilateral Resistance aROM Equipment Used BUE //bar support Reps/Minutes 5 reps x3 sets Comments cued tall posture, slow controlled Gait Training Gait Activity Normal gait Description normal gait Device Used hurry cane Level of Assistance IND Surface tile Distance/Duration 80 ft, 100 ft, 80 ft Treatment Focus Proper gait technique and mechanics Comments improved stability and sequencing post standing ther ex. Self-Care/Home Management Treatment Education Patient Education Body Mechanics,Home Exercise Program,Pain Management Other Education Much time spent on importance of attending PT, little behind strength dueto lack appts after eval 2 weeks. added clamshells side/hooklying, use cane for normalizing gait best form at this time. DIscussed needs to also see her PT for progression as well , not just PRODUCT SUPPORT SPECIALIST, verbalized understanding after education provided. PRODUCT SUPPORT SPECIALIST provided support glue removal lateral L hip scar from initial waterproof bandaging. PT-OP-T Assessment and Plan Start: 04/01/23 14:20 Freq: Status: Active Protocol: Document 04/27/23 14:39 SP (Rec: 04/27/23 16:18 SP [id number]) Physical Therapy Assessment Goals Eight Impairment Gait Short Term Goal (STG) Pt to walk household distances independently/mod independent with LRAD to show improving gait and tolerance to activity to return to PLOF. STG Duration 4 Skilled Nursing Goal (LTG) Pt to walk community distances independently/mod independent with LRAD to show improving gait and tolerance to activity to return to PLOF. LTG Duration 8 Seven Impairment Hip AROM Short Term Goal (STG) Pt's bilateral hip ER to improve to 20 or better to show improving AROM to perform functional activities. STG Duration 4 Inspector Agricultural Commodities Goal (LTG) Pt's bilateral hip ER to improve to 25 or better to show improving AROM to perform functional activities. LTG Duration 8 Six Impairment Hip AROM Short Term Goal (STG) Pt's bilateral hip IR to improve to 30 or better to show improving AROM to perform functional activities. STG Duration 4 Skilled Nursing Goal (LTG) Pt's bilateral hip IR to improve to 35 or better to show improving AROM to perform functional activities. LTG Duration 8 Five Impairment Hip AROM Short Term Goal (STG) Pt's bilateral hip ABD to improve to 25 or better to show improving AROM to perform functional activities. STG Duration 4 Skilled Nursing Goal (LTG) Pt's bilateral hip flexion to improve to 30 or better to show improving AROM to perform functional activities. LTG Duration 8 Four Impairment Hip AROM Short Term Goal (STG) Pt's bilateral hip flexion to improve to 105 or better to show improving AROM to perform functional activities. STG Duration 4 Skilled Nursing Goal (LTG) Pt's bilateral hip flexion to improve to 115 or better to show improving AROM to perform functional activities. LTG Duration 8 Three Impairment Pain Short Term Goal (STG) Pt to report bilateral hip pain of 5/10 or better with activity to show resolving pain symptoms. STG Duration 4 Skilled Nursing Goal (LTG) Pt to report bilateral hip pain of 2/10 or better with activity to show resolving pain symptoms. LTG Duration 8 Two Impairment MMT Short Term Goal (STG) Pt's gross BLE MMT scores to improve to 4-/5 or better to show improving strength to improve ability to perform functional activities. STG Duration 4 Skilled Nursing Goal (LTG) Pt's gross BLE MMT scores to improve to 4+/10 or better to show improving strength to improve ability to perform functional activities. LTG Duration 8 One Impairment Patient Questionnaire Short Term Goal (STG) Pt's LEFS score to improve to 25/80 or better to show improving subjective report of symptoms for an improved QOL. STG Duration 4 Inspector Agricultural Commodities Goal (LTG) Pt's LEFS score to improve to 45/80 or better to show improving subjective report of symptoms for an improved QOL. LTG Duration 8 Assessment Summary Assessment Pt improved ability to sit and sit without UE support post ther ex and education of body mechanics to come stand/ eccentric sit, this is easy, I can do it. PRODUCT SUPPORT SPECIALIST reviewed stand ex AROM and added clamshell resisted hooklying and AROM on side with painfree reports today to progress strength. Education provided for use of hurrycane at this time for normalizing gait with improved quad, glut support. PRODUCT SUPPORT SPECIALIST discussed may not be strong enough at this time to walk the blocks for trick or treating, can she drive along side on street with teenage grandchildren walking. She stated can do this, just not the same. I also reviewed she was without PT for 2 weeks after eval (away on vacation and had to cancel for various reasons) and didn't get to progress her as would have liked so little behind in strengthening, she verbalized didn't realize that made such a difference. Physical Therapy Plan Frequency and Duration Frequency of Treatment 2x/Week Duration of treatment (weeks) 8 Plan of Care Start Date 04/01/23 Plan of Care End Date 05/27/23 Therapeutic Interventions Therapeutic Interventions Balance Training,Gait Training ,Home Exercise Program,Joint Mobilizations,Manual Therapy, Neuromuscular Re-education, Patient/Caregiver Education, Self-Care/Home Management,Soft Tissue Mobilization,Taping, Therapeutic Activities, Therapeutic Exercises Modalities Cold Pack/Ice Massage,Electric Stimulation,Hot Packs Next Visit Focus/Plan Next Note Type Treatment Note Next Visit Plan Check added appts, check HEP, check how ortho appt tomorrow went 04/28. Review HEP: added clamshells. Review SPC use to normalize gait and equal stance time BLEs. incorporate balance activities for functional strengthening. POC: Add LE strengthening exercises as tolerated.
--- NOTE | 2023-04-29 12:45 | PT.OTN ---
Current Diagnoses Unilateral primary osteoarthritis, left hip (04/29/23) Physical Therapy Treatment Note PT-OP-A Visit Information Start: 04/01/23 14:20 Freq: Status: Active Protocol: Document 04/29/23 12:01 SP (Rec: 04/29/23 12:49 SP [id number]) Out-Patient Physical Therapy Visit Information Visit Information Visit Type Treatment Note Visit Start Time 12:01 Visit Stop Time 12:45 Total Visit Minutes 44 Visit Number 5 Number of TERMINAL OPERATOR Visits 3 Evaluation Information Evaluation Date 04/01/23 PT-OP-B Current Condition Start: 04/01/23 14:20 Freq: Status: Active Protocol: Document 04/01/23 14:32 AB (Rec: 04/01/23 17:38 AB [id number]) Current Condition History of Current Condition Onset Date 3 weeks ago Current Complaints left hip pain History of Current Condition Pt reports she had R FAUZIA ( posterior) in October and L FAUZIA (posterior) 3 weeks ago, but has significant pain in left hip and left knee. She is able to ascend/descend 5 steps with 2 SPC, she report she can walk 50 ft with 4WW before onset of pain. At times her pain refers to her hip, and sometimes down her left leg. She also reports feeling that the stress in her personal life may also be contributing to her symptoms, as she has noticed increased pain with stressful situations (i.e. people arguing, dogs barking, etc). Prior Treatments and Tests PT bilateral FAUZIA as above PT-OP-C Subjective Start: 04/01/23 14:20 Freq: Status: Active Protocol: Document 04/29/23 12:01 SP (Rec: 04/29/23 12:49 SP [id number]) OP-PT Subjective Patient Comments Patient Comments Pt reports saw Ortho yesterday and released her to continue PT to get back to normal walking and strength. She said was told can cross her legs now. She stated is little discouraged PT-OP-G Mobility & Gait Start: 04/01/23 14:20 Freq: Status: Active Protocol: Document 04/01/23 14:32 AB (Rec: 04/01/23 17:38 AB [id number]) OP Gait Assessment Assistive Devices Assistive Device 4 Wheeled Walker Gait Deviations General Gait Pattern Antalgic,Decreased Stride Length,Decreased Feet Clearance,Flexed Trunk Factors Limiting Gait Function Factors Limiting Gait Function Decreased Strength,Limited Range of Motion,Pain Comments Gait Comments Pt's gait mechanics improved by adjusting heigt of 4WW. She was educated on heel-to-toe gait pattern to normalize mechanics. PT-OP-J Posture/Palpation/Skin Start: 04/01/23 14:20 Freq: Status: Active Protocol: Document 04/01/23 17:38 AB (Rec: 04/01/23 17:40 AB [id number]) Skin Assessment Incisional Assessment Incision Appearance/Comments left posterior FAUZIA incision appears well healed without abnormal swelling or redness PT-OP-K Range of Motion Start: 04/01/23 14:20 Freq: Status: Active Protocol: Document 04/01/23 14:32 AB (Rec: 04/01/23 17:38 AB [id number]) Hip Goniometric Range of Motion Hip Left Active Comments NT due to posterior hip approach precautions; however left hip is grossly limited Right Active Hip ROM WFL Yes Flexion w/Knee Flexed 100 Extension 0 Abduction 20 Internal Rotation 28 External Rotation 16 Comments Pt denies pain PT-OP-M Strength Start: 04/01/23 14:20 Freq: Status: Active Protocol: Document 04/01/23 14:32 AB (Rec: 04/01/23 17:38 AB [id number]) Hip Strength Hip Manual Muscle Testing Right Flexion (L2) 4- Good- Extension (S1) 3+ Fair+ Abduction 3+ Fair+ Adduction 3+ Fair+ External Rotation 4- Good- Internal Rotation 4- Good- Left Comments NT due to posterior hip precautions, however grossly impaired Knee Strength Knee Manual Muscle Testing Right Flexion (S2) 4 Good Extension (L3) 4 Good Left Flexion (S2) 4 Good Extension (L3) 4 Good PT-OP-Q Treatments Start: 04/01/23 14:20 Freq: Status: Active Protocol: Document 04/29/23 12:01 SP (Rec: 04/29/23 12:49 SP [id number]) Cardio Equipment Recumbent Elliptical (BiodRed Aril) Duration (Minutes) 6 Resistance 2 Seat Position 7 Other BUEs&BLEs, Gym Equipment Shuttle Recovery Unilateral Squats Details single leg squats Resistance 12# Shuttle Recovery Platform Stable Reps/Time 2 x 10 reps Bilateral Squats Details bilateral squats Resistance 50#> 37# (old bands) Reps/Time 2x10, rest between sets Therapeutic Exercises Supine Exercises bridge Supine Exercise Name reviewed stated past HEP still doing at home Resistance AROM Reps/Minutes 5 reps x2 Comments cued knees //with feet, good form clamshell Supine Exercise Name reviewed HEP Side bilateral Resistance #2 orange TB Reps/Minutes x10 Comments reports feels fine, little effort but I think would be good Sidelying Exercises clamshell Sidelying Exercise Name reviewed HEP Side bilateral Resistance AROM Reps/Minutes 2x10 each side Comments this feels fine, little tender on side but is ok, I sleep on side little Sitting Exercises sit<> stands Sitting Exercise Name ed scoot fwd front chair, feet underneath, nose over toes arms fwd asc/desc Resistance no UE support- arms front momentum for n ow Equipment Used 18 black table Reps/Minutes x5 reps Comments cued hip hinge, little momentum but improve asc/desc Standing Exercises hip flexor lunge stretch Standing Exercise Name bottom stairs (rail support)- self HEP stretch Side bilateral Resistance L>R Reps/Minutes 30 x2-3 Comments good feedback stretch L front more R front and lateral Gait Training Gait Activity Normal gait Description normal gait Device Used hurry cane, none Level of Assistance IND Surface tile Distance/Duration 80 ft, 100 ft, 80 ft Treatment Focus Proper gait technique and mechanics Comments improved stability and sequencing post standing ther ex. PT-OP-T Assessment and Plan Start: 04/01/23 14:20 Freq: Status: Active Protocol: Document 04/29/23 12:01 SP (Rec: 04/29/23 12:49 SP [id number]) Physical Therapy Assessment Goals Eight Impairment Gait Short Term Goal (STG) Pt to walk household distances independently/mod independent with LRAD to show improving gait and tolerance to activity to return to PLOF. STG Duration 4 Senior Living Goal (LTG) Pt to walk community distances independently/mod independent with LRAD to show improving gait and tolerance to activity to return to PLOF. LTG Duration 8 Seven Impairment Hip AROM Short Term Goal (STG) Pt's bilateral hip ER to improve to 20 or better to show improving AROM to perform functional activities. STG Duration 4 Senior Living Goal (LTG) Pt's bilateral hip ER to improve to 25 or better to show improving AROM to perform functional activities. LTG Duration 8 Six Impairment Hip AROM Short Term Goal (STG) Pt's bilateral hip IR to improve to 30 or better to show improving AROM to perform functional activities. STG Duration 4 Event Planning Intern Goal (LTG) Pt's bilateral hip IR to improve to 35 or better to show improving AROM to perform functional activities. LTG Duration 8 Five Impairment Hip AROM Short Term Goal (STG) Pt's bilateral hip ABD to improve to 25 or better to show improving AROM to perform functional activities. STG Duration 4 Senior Living Goal (LTG) Pt's bilateral hip flexion to improve to 30 or better to show improving AROM to perform functional activities. LTG Duration 8 Four Impairment Hip AROM Short Term Goal (STG) Pt's bilateral hip flexion to improve to 105 or better to show improving AROM to perform functional activities. STG Duration 4 Event Planning Intern Goal (LTG) Pt's bilateral hip flexion to improve to 115 or better to show improving AROM to perform functional activities. LTG Duration 8 Three Impairment Pain Short Term Goal (STG) Pt to report bilateral hip pain of 5/10 or better with activity to show resolving pain symptoms. STG Duration 4 Senior Living Goal (LTG) Pt to report bilateral hip pain of 2/10 or better with activity to show resolving pain symptoms. LTG Duration 8 Two Impairment MMT Short Term Goal (STG) Pt's gross BLE MMT scores to improve to 4-/5 or better to show improving strength to improve ability to perform functional activities. STG Duration 4 Event Planning Intern Goal (LTG) Pt's gross BLE MMT scores to improve to 4+/10 or better to show improving strength to improve ability to perform functional activities. LTG Duration 8 One Impairment Patient Questionnaire Short Term Goal (STG) Pt's LEFS score to improve to 25/80 or better to show improving subjective report of symptoms for an improved QOL. STG Duration 4 Senior Living Goal (LTG) Pt's LEFS score to improve to 45/80 or better to show improving subjective report of symptoms for an improved QOL. LTG Duration 8 Assessment Summary Assessment Pt improved good gentle effort strengthening exercises today , pain free during therex review, cues for not rolling back during clamshell improved TA stabiblity recruitment with top arm on hip for self feedback stay still. She improved glut and quad firing LE loading and midstance gait phase during gait in mirror for self feedback no UE support, and cues for decrease leaning posture into SPC for further distance support, improved in mirror self feedback awareness. Physical Therapy Plan Frequency and Duration Frequency of Treatment 2x/Week Duration of treatment (weeks) 8 Plan of Care Start Date 04/01/23 Plan of Care End Date 05/27/23 Therapeutic Interventions Therapeutic Interventions Balance Training,Gait Training ,Home Exercise Program,Joint Mobilizations,Manual Therapy, Neuromuscular Re-education, Patient/Caregiver Education, Self-Care/Home Management,Soft Tissue Mobilization,Taping, Therapeutic Activities, Therapeutic Exercises Modalities Cold Pack/Ice Massage,Electric Stimulation,Hot Packs Next Visit Focus/Plan Next Note Type Treatment Note Next Visit Plan Check added appts into end Nov , check HEP as needed. Review HEP: Review SPC use to normalize gait and equal stance time BLEs. incorporate balance activities for functional strengthening. POC: Add LE strengthening exercises as tolerated.
--- NOTE | 2023-05-04 09:02 | PT.OTN ---
Current Diagnoses Unilateral primary osteoarthritis, left hip (05/04/23) Physical Therapy Treatment Note PT-OP-A Visit Information Start: 04/01/23 14:20 Freq: Status: Active Protocol: Document 05/04/23 08:58 SP (Rec: 05/04/23 09:07 SP [id number]) Out-Patient Physical Therapy Visit Information Visit Information Visit Type Treatment Note Visit Start Time 08:18 Visit Stop Time 09:02 Total Visit Minutes 44 Visit Number 6 Number of INGREDIENT SCALER Visits 4 Evaluation Information Evaluation Date 04/01/23 PT-OP-B Current Condition Start: 04/01/23 14:20 Freq: Status: Active Protocol: Document 04/01/23 14:32 AB (Rec: 04/01/23 17:38 AB [id number]) Current Condition History of Current Condition Onset Date 3 weeks ago Current Complaints left hip pain History of Current Condition Pt reports she had R FAUZIA ( posterior) in October and L FAUZIA (posterior) 3 weeks ago, but has significant pain in left hip and left knee. She is able to ascend/descend 5 steps with 2 SPC, she report she can walk 50 ft with 4WW before onset of pain. At times her pain refers to her hip, and sometimes down her left leg. She also reports feeling that the stress in her personal life may also be contributing to her symptoms, as she has noticed increased pain with stressful situations (i.e. people arguing, dogs barking, etc). Prior Treatments and Tests PT bilateral FAUZIA as above PT-OP-C Subjective Start: 04/01/23 14:20 Freq: Status: Active Protocol: Document 05/04/23 08:58 SP (Rec: 05/04/23 09:07 SP [id number]) OP-PT Subjective Patient Comments Patient Comments Pt reports doing her exercises at home, reports very hard to come to stand at home without UEs, her chair is 15 . She is still sore toward the end of the day. PT-OP-G Mobility & Gait Start: 04/01/23 14:20 Freq: Status: Active Protocol: Document 04/01/23 14:32 AB (Rec: 04/01/23 17:38 AB [id number]) OP Gait Assessment Assistive Devices Assistive Device 4 Wheeled Walker Gait Deviations General Gait Pattern Antalgic,Decreased Stride Length,Decreased Feet Clearance,Flexed Trunk Factors Limiting Gait Function Factors Limiting Gait Function Decreased Strength,Limited Range of Motion,Pain Comments Gait Comments Pt's gait mechanics improved by adjusting heigt of 4WW. She was educated on heel-to-toe gait pattern to normalize mechanics. PT-OP-J Posture/Palpation/Skin Start: 04/01/23 14:20 Freq: Status: Active Protocol: Document 04/01/23 17:38 AB (Rec: 04/01/23 17:40 AB [id number]) Skin Assessment Incisional Assessment Incision Appearance/Comments left posterior FAUZIA incision appears well healed without abnormal swelling or redness PT-OP-K Range of Motion Start: 04/01/23 14:20 Freq: Status: Active Protocol: Document 04/01/23 14:32 AB (Rec: 04/01/23 17:38 AB [id number]) Hip Goniometric Range of Motion Hip Left Active Comments NT due to posterior hip approach precautions; however left hip is grossly limited Right Active Hip ROM WFL Yes Flexion w/Knee Flexed 100 Extension 0 Abduction 20 Internal Rotation 28 External Rotation 16 Comments Pt denies pain PT-OP-M Strength Start: 04/01/23 14:20 Freq: Status: Active Protocol: Document 04/01/23 14:32 AB (Rec: 04/01/23 17:38 AB [id number]) Hip Strength Hip Manual Muscle Testing Right Flexion (L2) 4- Good- Extension (S1) 3+ Fair+ Abduction 3+ Fair+ Adduction 3+ Fair+ External Rotation 4- Good- Internal Rotation 4- Good- Left Comments NT due to posterior hip precautions, however grossly impaired Knee Strength Knee Manual Muscle Testing Right Flexion (S2) 4 Good Extension (L3) 4 Good Left Flexion (S2) 4 Good Extension (L3) 4 Good PT-OP-Q Treatments Start: 04/01/23 14:20 Freq: Status: Active Protocol: Document 05/04/23 08:58 SP (Rec: 05/04/23 09:07 SP [id number]) Therapeutic Exercises Sitting Exercises sit<> stands Sitting Exercise Name ed scoot fwd front chair, feet underneath, nose over toes arms fwd asc/desc Resistance no UE support- arms front momentum for n ow Equipment Used mesh chair + blue foam 20 Reps/Minutes x5 reps no UE support Comments cued hip hinge, little momentum but improve asc/desc Standing Exercises step ups Standing Exercise Name ascend/back descend Equipment Used //bars, 6 step Reps/Minutes 5 reps x2 each Comments cued TKE, soft stepping up/ back down- improves core& hip abd support Gait Training Gait Activity Normal gait Description normal gait Device Used hurry cane, none Level of Assistance IND Surface tile Distance/Duration 80 ft, 100 ft, 80 ft Treatment Focus Proper gait technique and mechanics Comments improved stability and sequencing post standing ther ex. Manual Therapy Treatment Soft Tissue Mobilization L hip Body Location L glut, piriformis, ITB Mobilization Type Strumming,Sustained Pressure, Other Intensity/Depth Moderate Body Position R Sidelying Comments manual STMs, sustained gentle pressure with MWM clamshell ROM. Neuro Re-Education Treatment Balance Activities hurdles Details fwd Surface 4 floor, then added foam Equipment PRN light back of hand contact //bars Reps/Duration 4 min Comments step to, receiprocal stepping, cued hip ER foot fwd alignment (tends to IR), increase KYE. Cued slower pacing and tall over advanced LE TKE improved decrease lateral hand. PT-OP-R Modalities Start: 04/01/23 14:20 Freq: Status: Active Protocol: Document 05/04/23 08:58 SP (Rec: 05/04/23 09:07 SP [id number]) Electric Stimulation Electric Stimulation Interferential Current (IFC) Body Location L hip Duration (Minutes) 8 Intensity 32 Combined With Heat/Cold Hot Pack PT-OP-T Assessment and Plan Start: 04/01/23 14:20 Freq: Status: Active Protocol: Document 05/04/23 08:58 SP (Rec: 05/04/23 09:07 SP [id number]) Physical Therapy Assessment Goals Eight Impairment Gait Short Term Goal (STG) Pt to walk household distances independently/mod independent with LRAD to show improving gait and tolerance to activity to return to PLOF. STG Duration 4 Snf Goal (LTG) Pt to walk community distances independently/mod independent with LRAD to show improving gait and tolerance to activity to return to PLOF. LTG Duration 8 Seven Impairment Hip AROM Short Term Goal (STG) Pt's bilateral hip ER to improve to 20 or better to show improving AROM to perform functional activities. STG Duration 4 Snf Goal (LTG) Pt's bilateral hip ER to improve to 25 or better to show improving AROM to perform functional activities. LTG Duration 8 Six Impairment Hip AROM Short Term Goal (STG) Pt's bilateral hip IR to improve to 30 or better to show improving AROM to perform functional activities. STG Duration 4 Advertising Photographer Goal (LTG) Pt's bilateral hip IR to improve to 35 or better to show improving AROM to perform functional activities. LTG Duration 8 Five Impairment Hip AROM Short Term Goal (STG) Pt's bilateral hip ABD to improve to 25 or better to show improving AROM to perform functional activities. STG Duration 4 Advertising Photographer Goal (LTG) Pt's bilateral hip flexion to improve to 30 or better to show improving AROM to perform functional activities. LTG Duration 8 Four Impairment Hip AROM Short Term Goal (STG) Pt's bilateral hip flexion to improve to 105 or better to show improving AROM to perform functional activities. STG Duration 4 Snf Goal (LTG) Pt's bilateral hip flexion to improve to 115 or better to show improving AROM to perform functional activities. LTG Duration 8 Three Impairment Pain Short Term Goal (STG) Pt to report bilateral hip pain of 5/10 or better with activity to show resolving pain symptoms. STG Duration 4 Snf Goal (LTG) Pt to report bilateral hip pain of 2/10 or better with activity to show resolving pain symptoms. LTG Duration 8 Two Impairment MMT Short Term Goal (STG) Pt's gross BLE MMT scores to improve to 4-/5 or better to show improving strength to improve ability to perform functional activities. STG Duration 4 Advertising Photographer Goal (LTG) Pt's gross BLE MMT scores to improve to 4+/10 or better to show improving strength to improve ability to perform functional activities. LTG Duration 8 One Impairment Patient Questionnaire Short Term Goal (STG) Pt's LEFS score to improve to 25/80 or better to show improving subjective report of symptoms for an improved QOL. STG Duration 4 Advertising Photographer Goal (LTG) Pt's LEFS score to improve to 45/80 or better to show improving subjective report of symptoms for an improved QOL. LTG Duration 8 Assessment Summary Assessment Pt improved increase stride, step length and lessening UE support during hurdles post supported step ups this tx. Manual and modalities to L hip end tx with report less tightness and discomfort in L hip. Pt little unsteady into standing from laying prone. PT aide walked with pt out to car with improved stabiltiy self noted Instructed use of continued SPC for balance support at this time while progress increase balance. Physical Therapy Plan Frequency and Duration Frequency of Treatment 2x/Week Duration of treatment (weeks) 8 Plan of Care Start Date 04/01/23 Plan of Care End Date 05/27/23 Therapeutic Interventions Therapeutic Interventions Balance Training,Gait Training ,Home Exercise Program,Joint Mobilizations,Manual Therapy, Neuromuscular Re-education, Patient/Caregiver Education, Self-Care/Home Management,Soft Tissue Mobilization,Taping, Therapeutic Activities, Therapeutic Exercises Modalities Cold Pack/Ice Massage,Electric Stimulation,Hot Packs Next Visit Focus/Plan Next Note Type Treatment Note Next Visit Plan Check added appts into end Nov , check HEP as needed. Increase balance activities incorporating tolerant strengthening exercises. Review HEP: Review SPC use to normalize gait and equal stance time BLEs. incorporate balance activities for functional strengthening ( hurles, start sport cord) manual and modalities as needed. POC: Add LE strengthening exercises as tolerated.
--- NOTE | 2023-05-06 14:27 | PT.OTN ---
Current Diagnoses Unilateral primary osteoarthritis, left hip (05/06/23) Physical Therapy Treatment Note PT-OP-A Visit Information Start: 04/01/23 14:20 Freq: Status: Active Protocol: Document 05/06/23 11:53 AB (Rec: 05/06/23 14:27 AB [id number]) Out-Patient Physical Therapy Visit Information Visit Information Visit Type Treatment Note Visit Start Time 11:50 Visit Stop Time 12:30 Total Visit Minutes 40 Visit Number 7 Evaluation Information Evaluation Date 04/01/23 PT-OP-B Current Condition Start: 04/01/23 14:20 Freq: Status: Active Protocol: Document 04/01/23 14:32 AB (Rec: 04/01/23 17:38 AB [id number]) Current Condition History of Current Condition Onset Date 3 weeks ago Current Complaints left hip pain History of Current Condition Pt reports she had R FAUZIA ( posterior) in October and L FAUZIA (posterior) 3 weeks ago, but has significant pain in left hip and left knee. She is able to ascend/descend 5 steps with 2 SPC, she report she can walk 50 ft with 4WW before onset of pain. At times her pain refers to her hip, and sometimes down her left leg. She also reports feeling that the stress in her personal life may also be contributing to her symptoms, as she has noticed increased pain with stressful situations (i.e. people arguing, dogs barking, etc). Prior Treatments and Tests PT bilateral FAUZIA as above PT-OP-C Subjective Start: 04/01/23 14:20 Freq: Status: Active Protocol: Document 05/06/23 11:53 AB (Rec: 05/06/23 14:27 AB [id number]) OP-PT Subjective Patient Comments Patient Comments The pt reports she is able to walk 2 blocks at one time. She also reports she is able to put her socks on for the first time last week. PT-OP-G Mobility & Gait Start: 04/01/23 14:20 Freq: Status: Active Protocol: Document 04/01/23 14:32 AB (Rec: 04/01/23 17:38 AB [id number]) OP Gait Assessment Assistive Devices Assistive Device 4 Wheeled Walker Gait Deviations General Gait Pattern Antalgic,Decreased Stride Length,Decreased Feet Clearance,Flexed Trunk Factors Limiting Gait Function Factors Limiting Gait Function Decreased Strength,Limited Range of Motion,Pain Comments Gait Comments Pt's gait mechanics improved by adjusting heigt of 4WW. She was educated on heel-to-toe gait pattern to normalize mechanics. PT-OP-J Posture/Palpation/Skin Start: 04/01/23 14:20 Freq: Status: Active Protocol: Document 04/01/23 17:38 AB (Rec: 04/01/23 17:40 AB [id number]) Skin Assessment Incisional Assessment Incision Appearance/Comments left posterior FAUZIA incision appears well healed without abnormal swelling or redness PT-OP-K Range of Motion Start: 04/01/23 14:20 Freq: Status: Active Protocol: Document 04/01/23 14:32 AB (Rec: 04/01/23 17:38 AB [id number]) Hip Goniometric Range of Motion Hip Left Active Comments NT due to posterior hip approach precautions; however left hip is grossly limited Right Active Hip ROM WFL Yes Flexion w/Knee Flexed 100 Extension 0 Abduction 20 Internal Rotation 28 External Rotation 16 Comments Pt denies pain PT-OP-M Strength Start: 04/01/23 14:20 Freq: Status: Active Protocol: Document 04/01/23 14:32 AB (Rec: 04/01/23 17:38 AB [id number]) Hip Strength Hip Manual Muscle Testing Right Flexion (L2) 4- Good- Extension (S1) 3+ Fair+ Abduction 3+ Fair+ Adduction 3+ Fair+ External Rotation 4- Good- Internal Rotation 4- Good- Left Comments NT due to posterior hip precautions, however grossly impaired Knee Strength Knee Manual Muscle Testing Right Flexion (S2) 4 Good Extension (L3) 4 Good Left Flexion (S2) 4 Good Extension (L3) 4 Good PT-OP-Q Treatments Start: 04/01/23 14:20 Freq: Status: Active Protocol: Document 05/06/23 11:53 AB (Rec: 05/06/23 14:27 AB [id number]) Cardio Equipment Recumbent Elliptical ([employer]) Duration (Minutes) 6 Resistance 2 Seat Position 7 Other BUEs&BLEs, Therapeutic Exercises Sitting Exercises sit<> stands Sitting Exercise Name ed scoot fwd front chair, feet underneath, nose over toes arms fwd asc/desc Resistance no UE support- arms front momentum for n ow Equipment Used mesh chair Reps/Minutes x5 reps no UE support Comments cued hip hinge, little momentum but improve asc/desc, nose over toes Standing Exercises step ups Standing Exercise Name ascend/back descend performed on stairs Equipment Used 4 stairs, 6 stairs Reps/Minutes x2 sets each Comments cued TKE, soft stepping up/ back down- improves core& hip abd support Therapeutic Activity Therapeutic Activity Seated forward flexion Name Seated fwd trunk flex Reps/Minutes x10 hernandez bags fwd flex, x5 right lat/rot flexion Comments Performed to improve ability to flower buncher or picker objects, as she reports she has difficulty performing at home due to her precautions. Self-Care/Home Management Treatment Education Patient Education Body Mechanics,Home Exercise Program,Pain Management Other Education Extended time spent educating pt regarding progress with PT and POC focusing on continuing to regain ROM and strength in order to return to performing ADLs and IADLs with minimal difficulty. PT-OP-R Modalities Start: 04/01/23 14:20 Freq: Status: Active Protocol: Document 05/04/23 08:58 SP (Rec: 05/04/23 09:07 SP [id number]) Electric Stimulation Electric Stimulation Interferential Current (IFC) Body Location L hip Duration (Minutes) 8 Intensity 32 Combined With Heat/Cold Hot Pack PT-OP-T Assessment and Plan Start: 04/01/23 14:20 Freq: Status: Active Protocol: Document 05/06/23 11:53 AB (Rec: 05/06/23 14:27 AB [id number]) Physical Therapy Assessment Goals Eight Impairment Gait Short Term Goal (STG) Pt to walk household distances independently/mod independent with LRAD to show improving gait and tolerance to activity to return to PLOF. STG Duration 4 Airline Mechanic Goal (LTG) Pt to walk community distances independently/mod independent with LRAD to show improving gait and tolerance to activity to return to PLOF. LTG Duration 8 Seven Impairment Hip AROM Short Term Goal (STG) Pt's bilateral hip ER to improve to 20 or better to show improving AROM to perform functional activities. STG Duration 4 Half-Way Goal (LTG) Pt's bilateral hip ER to improve to 25 or better to show improving AROM to perform functional activities. LTG Duration 8 Six Impairment Hip AROM Short Term Goal (STG) Pt's bilateral hip IR to improve to 30 or better to show improving AROM to perform functional activities. STG Duration 4 Half-Way Goal (LTG) Pt's bilateral hip IR to improve to 35 or better to show improving AROM to perform functional activities. LTG Duration 8 Five Impairment Hip AROM Short Term Goal (STG) Pt's bilateral hip ABD to improve to 25 or better to show improving AROM to perform functional activities. STG Duration 4 Airline Mechanic Goal (LTG) Pt's bilateral hip flexion to improve to 30 or better to show improving AROM to perform functional activities. LTG Duration 8 Four Impairment Hip AROM Short Term Goal (STG) Pt's bilateral hip flexion to improve to 105 or better to show improving AROM to perform functional activities. STG Duration 4 Airline Mechanic Goal (LTG) Pt's bilateral hip flexion to improve to 115 or better to show improving AROM to perform functional activities. LTG Duration 8 Three Impairment Pain Short Term Goal (STG) Pt to report bilateral hip pain of 5/10 or better with activity to show resolving pain symptoms. STG Duration 4 Half-Way Goal (LTG) Pt to report bilateral hip pain of 2/10 or better with activity to show resolving pain symptoms. LTG Duration 8 Two Impairment MMT Short Term Goal (STG) Pt's gross BLE MMT scores to improve to 4-/5 or better to show improving strength to improve ability to perform functional activities. STG Duration 4 Airline Mechanic Goal (LTG) Pt's gross BLE MMT scores to improve to 4+/10 or better to show improving strength to improve ability to perform functional activities. LTG Duration 8 One Impairment Patient Questionnaire Short Term Goal (STG) Pt's LEFS score to improve to 25/80 or better to show improving subjective report of symptoms for an improved QOL. STG Duration 4 Half-Way Goal (LTG) Pt's LEFS score to improve to 45/80 or better to show improving subjective report of symptoms for an improved QOL. LTG Duration 8 Assessment Summary Assessment The pt presents with mildly antalgic gait pattern, however no loger requires use of AD for ambulation on even surfaces. Seated trunk flexion exercise with reaching was introduced to improve the pt's ability to flex at hip to reach objects, as she reports this is difficult for her. In the future, this can be progressed to standing in order to work on mobility but also standing dynamic balance. The pt also demos improved ability to ascend/descend stairs but has difficulty performing descent with 6in steps due to eccentric weakness. The pt continues to benefit from skilled PT to improve her level of function. Physical Therapy Plan Frequency and Duration Frequency of Treatment 2x/Week Duration of treatment (weeks) 8 Plan of Care Start Date 04/01/23 Plan of Care End Date 05/27/23 Therapeutic Interventions Therapeutic Interventions Balance Training,Gait Training ,Home Exercise Program,Joint Mobilizations,Manual Therapy, Neuromuscular Re-education, Patient/Caregiver Education, Self-Care/Home Management,Soft Tissue Mobilization,Taping, Therapeutic Activities, Therapeutic Exercises Modalities Cold Pack/Ice Massage,Electric Stimulation,Hot Packs Next Visit Focus/Plan Next Note Type Treatment Note Next Visit Plan Check added appts into end Nov , check HEP as needed. Increase balance activities incorporating tolerant strengthening exercises. Review HEP: Review SPC use to normalize gait and equal stance time BLEs. incorporate balance activities for functional strengthening ( hurdles, start sport cord) manual and modalities as needed. POC: Add LE strengthening exercises as tolerated.
--- NOTE | 2023-05-13 15:15 | PT.OTN ---
Current Diagnoses Unilateral primary osteoarthritis, left hip (05/13/23) Physical Therapy Treatment Note PT-OP-A Visit Information Start: 04/01/23 14:20 Freq: Status: Active Protocol: Document 05/13/23 14:33 SP (Rec: 05/13/23 16:09 SP [id number]) Out-Patient Physical Therapy Visit Information Visit Information Visit Type Treatment Note Visit Note 8/10 visits after eval. Visit Start Time 14:33 Visit Stop Time 15:15 Total Visit Minutes 42 Visit Number 8 Number of CONTRACTING SUPPORT SPECIALIST Visits 1 Evaluation Information Evaluation Date 04/01/23 PT-OP-B Current Condition Start: 04/01/23 14:20 Freq: Status: Active Protocol: Document 04/01/23 14:32 AB (Rec: 04/01/23 17:38 AB [id number]) Current Condition History of Current Condition Onset Date 3 weeks ago Current Complaints left hip pain History of Current Condition Pt reports she had R FAUZIA ( posterior) in October and L FAUZIA (posterior) 3 weeks ago, but has significant pain in left hip and left knee. She is able to ascend/descend 5 steps with 2 SPC, she report she can walk 50 ft with 4WW before onset of pain. At times her pain refers to her hip, and sometimes down her left leg. She also reports feeling that the stress in her personal life may also be contributing to her symptoms, as she has noticed increased pain with stressful situations (i.e. people arguing, dogs barking, etc). Prior Treatments and Tests PT bilateral FAUZIA as above PT-OP-C Subjective Start: 04/01/23 14:20 Freq: Status: Active Protocol: Document 05/13/23 14:33 SP (Rec: 05/13/23 16:09 SP [id number]) OP-PT Subjective Patient Comments Patient Comments Pt reports very compliant with HEP maybe does it to much, last ThuMay 09 she woke up and was walking better without being focused on foot alignment and balance and didn 't notice her L hip until at least 1030am. She stated she did go trick or treating with teen grand children and was very tiring/challenging not used to and had to return to car and drive little more to keep up with them. She reports her hips start to hurt when sit to long and hard time getting up when sit for to long need use her UEs for support. PT-OP-G Mobility & Gait Start: 04/01/23 14:20 Freq: Status: Active Protocol: Document 04/01/23 14:32 AB (Rec: 04/01/23 17:38 AB [id number]) OP Gait Assessment Assistive Devices Assistive Device 4 Wheeled Walker Gait Deviations General Gait Pattern Antalgic,Decreased Stride Length,Decreased Feet Clearance,Flexed Trunk Factors Limiting Gait Function Factors Limiting Gait Function Decreased Strength,Limited Range of Motion,Pain Comments Gait Comments Pt's gait mechanics improved by adjusting heigt of 4WW. She was educated on heel-to-toe gait pattern to normalize mechanics. PT-OP-J Posture/Palpation/Skin Start: 04/01/23 14:20 Freq: Status: Active Protocol: Document 04/01/23 17:38 AB (Rec: 04/01/23 17:40 AB [id number]) Skin Assessment Incisional Assessment Incision Appearance/Comments left posterior FAUZIA incision appears well healed without abnormal swelling or redness PT-OP-K Range of Motion Start: 04/01/23 14:20 Freq: Status: Active Protocol: Document 04/01/23 14:32 AB (Rec: 04/01/23 17:38 AB [id number]) Hip Goniometric Range of Motion Hip Left Active Comments NT due to posterior hip approach precautions; however left hip is grossly limited Right Active Hip ROM WFL Yes Flexion w/Knee Flexed 100 Extension 0 Abduction 20 Internal Rotation 28 External Rotation 16 Comments Pt denies pain PT-OP-M Strength Start: 04/01/23 14:20 Freq: Status: Active Protocol: Document 04/01/23 14:32 AB (Rec: 04/01/23 17:38 AB [id number]) Hip Strength Hip Manual Muscle Testing Right Flexion (L2) 4- Good- Extension (S1) 3+ Fair+ Abduction 3+ Fair+ Adduction 3+ Fair+ External Rotation 4- Good- Internal Rotation 4- Good- Left Comments NT due to posterior hip precautions, however grossly impaired Knee Strength Knee Manual Muscle Testing Right Flexion (S2) 4 Good Extension (L3) 4 Good Left Flexion (S2) 4 Good Extension (L3) 4 Good PT-OP-Q Treatments Start: 04/01/23 14:20 Freq: Status: Active Protocol: Document 05/13/23 14:33 SP (Rec: 05/13/23 16:09 SP [id number]) Cardio Equipment Recumbent Stepper (Sci-Fit) Duration (Minutes) 6 Resistance 2 Seat Position 11 Other LEs only- cued knees ABD & // with feet Gym Equipment Sport Cord red Exercise Details fwd,bwd, lateral r and l, step up/back down (4 step) Cord/Resistance red + CGA at GB Reps/Duration 5 reps each direction Comments cued TA and eccentric muscular control return, improved stability. Therapeutic Exercises Supine Exercises willian stretch Supine Exercise Name initiated during gait around clinic Side bilateral Equipment Used opp LE knee bent/foot on table Reps/Minutes 30 each Comments good feedback quad and hip flexor stretch, reports:mus feels when walks Gait Training Gait Activity Normal gait Description normal gait Device Used 0 Level of Assistance I Surface carpet Distance/Duration 170 ft, various lengths around gym Treatment Focus TKE, core&TA eccentric soft heel strike, hip ER neutral Comments improved stability and eccentric LE advancement post balance activities and willian stretch. Neuro Re-Education Treatment Balance Activities incline/decline Details future tx hurdles Details fwd Surface 5 hurdles f/lateral 2 laps each, Fwd c/foam receiprocal Equipment CGA c/ GB Reps/Duration 4 min Comments step to, receiprocal stepping, occ cues for L>R hip ER heel strike. Improved stability able add foam. 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 PT-OP-R Modalities Start: 04/01/23 14:20 Freq: Status: Active Protocol: Document 05/04/23 08:58 SP (Rec: 05/04/23 09:07 SP [id number]) Electric Stimulation Electric Stimulation Interferential Current (IFC) Body Location L hip Duration (Minutes) 8 Intensity 32 Combined With Heat/Cold Hot Pack PT-OP-T Assessment and Plan Start: 04/01/23 14:20 Freq: Status: Active Protocol: Document 05/13/23 14:33 SP (Rec: 05/13/23 16:09 SP [id number]) Physical Therapy Assessment Goals Eight Impairment Gait Short Term Goal (STG) Pt to walk household distances independently/mod independent with LRAD to show improving gait and tolerance to activity to return to PLOF. STG Duration 4 Prison Goal (LTG) Pt to walk community distances independently/mod independent with LRAD to show improving gait and tolerance to activity to return to PLOF. LTG Duration 8 Seven Impairment Hip AROM Short Term Goal (STG) Pt's bilateral hip ER to improve to 20 or better to show improving AROM to perform functional activities. STG Duration 4 Prison Goal (LTG) Pt's bilateral hip ER to improve to 25 or better to show improving AROM to perform functional activities. LTG Duration 8 Six Impairment Hip AROM Short Term Goal (STG) Pt's bilateral hip IR to improve to 30 or better to show improving AROM to perform functional activities. STG Duration 4 Prison Goal (LTG) Pt's bilateral hip IR to improve to 35 or better to show improving AROM to perform functional activities. LTG Duration 8 Five Impairment Hip AROM Short Term Goal (STG) Pt's bilateral hip ABD to improve to 25 or better to show improving AROM to perform functional activities. STG Duration 4 Burnt Lime Drawer Goal (LTG) Pt's bilateral hip flexion to improve to 30 or better to show improving AROM to perform functional activities. LTG Duration 8 Four Impairment Hip AROM Short Term Goal (STG) Pt's bilateral hip flexion to improve to 105 or better to show improving AROM to perform functional activities. STG Duration 4 Burnt Lime Drawer Goal (LTG) Pt's bilateral hip flexion to improve to 115 or better to show improving AROM to perform functional activities. LTG Duration 8 Three Impairment Pain Short Term Goal (STG) Pt to report bilateral hip pain of 5/10 or better with activity to show resolving pain symptoms. STG Duration 4 Burnt Lime Drawer Goal (LTG) Pt to report bilateral hip pain of 2/10 or better with activity to show resolving pain symptoms. LTG Duration 8 Two Impairment MMT Short Term Goal (STG) Pt's gross BLE MMT scores to improve to 4-/5 or better to show improving strength to improve ability to perform functional activities. STG Duration 4 Prison Goal (LTG) Pt's gross BLE MMT scores to improve to 4+/10 or better to show improving strength to improve ability to perform functional activities. LTG Duration 8 One Impairment Patient Questionnaire Short Term Goal (STG) Pt's LEFS score to improve to 25/80 or better to show improving subjective report of symptoms for an improved QOL. STG Duration 4 Prison Goal (LTG) Pt's LEFS score to improve to 45/80 or better to show improving subjective report of symptoms for an improved QOL. LTG Duration 8 Assessment Summary Assessment Tx focused on functional strengthening jt stepping, sport cord, gait increase stride c/ arm swing to improved even eccentric heel strike and maxine. She improves with ability to engage core, hip ab strengthening with SLS addition to uneven foam during hurdles and gait against resistance with improvement eccentric control return. Noted increase stride and cues arm swing during gait end tx. Physical Therapy Plan Frequency and Duration Frequency of Treatment 2x/Week Duration of treatment (weeks) 8 Plan of Care Start Date 04/01/23 Plan of Care End Date 05/27/23 Therapeutic Interventions Therapeutic Interventions Balance Training,Gait Training ,Home Exercise Program,Joint Mobilizations,Manual Therapy, Neuromuscular Re-education, Patient/Caregiver Education, Self-Care/Home Management,Soft Tissue Mobilization,Taping, Therapeutic Activities, Therapeutic Exercises Modalities Cold Pack/Ice Massage,Electric Stimulation,Hot Packs Next Visit Focus/Plan Next Note Type Progress Note Next Visit Plan *9th visit PN next visit and update POC in 4 visits. Add hip stretching (piriformis, Fig 4), REview supine/side for hip abd&core strengthening carryover stability gait. Trial standing at rail L knee on stool hip IR/ ER slow gentle AROM. POC: Increase balance activities incline/declines and uneven surfaces to return to community gait with granddaughters. manual and modalities as needed.
--- NOTE | 2023-05-15 15:57 | PT.OPPN ---
Current Diagnoses Unilateral primary osteoarthritis, left hip (05/20/23) Physical Therapy Progress Note PT-OP-A Visit Information Start: 04/01/23 14:20 Freq: Status: Active Protocol: Document 05/20/23 13:50 SP (Rec: 05/20/23 14:33 SP [id number]) Out-Patient Physical Therapy Visit Information Visit Information Visit Type Treatment Note Visit Note 08/15 after PN Visit Start Time 13:50 Visit Stop Time 14:30 Total Visit Minutes 40 Visit Number 11 Number of ASSISTANT PRODUCER Visits 2 Evaluation Information Evaluation Date 04/01/23 PT-OP-B Current Condition Start: 04/01/23 14:20 Freq: Status: Active Protocol: Document 05/15/23 16:00 NM (Rec: 05/15/23 16:21 NM [id number]) Current Condition History of Current Condition Onset Date 3 weeks ago Current Complaints left hip pain History of Current Condition Pt reports she had R FAUZIA ( posterior) in October and L FAUZIA (posterior) 3 weeks ago, but has significant pain in left hip and left knee. She is able to ascend/descend 5 steps with 2 SPC, she report she can walk 50 ft with 4WW before onset of pain. At times her pain refers to her hip, and sometimes down her left leg. She also reports feeling that the stress in her personal life may also be contributing to her symptoms, as she has noticed increased pain with stressful situations (i.e. people arguing, dogs barking, etc). Prior Treatments and Tests PT bilateral FAUZIA as above PT-OP-C Subjective Start: 04/01/23 14:20 Freq: Status: Active Protocol: Document 05/20/23 13:50 SP (Rec: 05/20/23 14:33 SP [id number]) OP-PT Subjective Patient Comments Patient Comments Pt report was tired but She reports tired and dr increased her thyroid med from 100 to 125 mg but concerned so decreased to 112 mg. PT-OP-G Mobility & Gait Start: 04/01/23 14:20 Freq: Status: Active Protocol: Document 04/01/23 14:32 AB (Rec: 04/01/23 17:38 AB [id number]) OP Gait Assessment Assistive Devices Assistive Device 4 Wheeled Walker Gait Deviations General Gait Pattern Antalgic,Decreased Stride Length,Decreased Feet Clearance,Flexed Trunk Factors Limiting Gait Function Factors Limiting Gait Function Decreased Strength,Limited Range of Motion,Pain Comments Gait Comments Pt's gait mechanics improved by adjusting heigt of 4WW. She was educated on heel-to-toe gait pattern to normalize mechanics. PT-OP-J Posture/Palpation/Skin Start: 04/01/23 14:20 Freq: Status: Active Protocol: Document 04/01/23 17:38 AB (Rec: 04/01/23 17:40 AB [id number]) Skin Assessment Incisional Assessment Incision Appearance/Comments left posterior FAUZIA incision appears well healed without abnormal swelling or redness PT-OP-K Range of Motion Start: 04/01/23 14:20 Freq: Status: Active Protocol: Document 05/15/23 16:00 NM (Rec: 05/15/23 16:21 NM [id number]) Hip Goniometric Range of Motion Hip Measured in Degrees Left Active Testing Position supine, sitting Flexion w/Knee Flexed 105 Extension 0 Abduction 20 Internal Rotation 20 External Rotation 15 Comments no pain but difficult to perform Right Active Testing Position supine, sitting Flexion w/Knee Flexed 120 Extension 0 Abduction 20 Internal Rotation 25 External Rotation 20 PT-OP-M Strength Start: 04/01/23 14:20 Freq: Status: Active Protocol: Document 05/15/23 16:00 NM (Rec: 05/15/23 16:21 NM [id number]) Hip Strength Hip Manual Muscle Testing Right Flexion (L2) 4- Good- Extension (S1) 3+ Fair+ Abduction 4 Good Adduction 3+ Fair+ External Rotation 4- Good- Internal Rotation 4- Good- Left Flexion (L2) 4- Good- Extension (S1) 3+ Fair+ Abduction 3+ Fair+ Adduction 3+ Fair+ External Rotation 3+ Fair+ Internal Rotation 3+ Fair+ Comments Only reports mild discomfort with resisted hip flex, no pain with any of the other resisted motions. Knee Strength Knee Manual Muscle Testing Right Flexion (S2) 4 Good Extension (L3) 4- Good- Left Flexion (S2) 4- Good- Extension (L3) 4- Good- PT-OP-T Assessment and Plan Start: 04/01/23 14:20 Freq: Status: Active Protocol: Document 05/20/23 13:50 SP (Rec: 05/20/23 14:33 SP [id number]) Physical Therapy Assessment Goals Eight Impairment Gait Short Term Goal (STG) Pt to walk household distances independently/mod independent with LRAD to show improving gait and tolerance to activity to return to PLOF. STG Duration 4 Elastic Cutter Goal (LTG) Pt to walk community distances independently/mod independent with LRAD to show improving gait and tolerance to activity to return to PLOF. 05/15: Able to ambulate up to 170 ft (up to 1 block) independently with LRAD before requiring rest -- progressing toward goal LTG Duration 8 Seven Impairment Hip AROM Short Term Goal (STG) Pt's bilateral hip ER to improve to 20 or better to show improving AROM to perform functional activities. STG Duration 4 Elastic Cutter Goal (LTG) Pt's bilateral hip ER to improve to 25 or better to show improving AROM to perform functional activities. 05/15: L hip ER 15 deg, R hip ER 20 deg --progressing toward goal LTG Duration 8 Six Impairment Hip AROM Short Term Goal (STG) Pt's bilateral hip IR to improve to 30 or better to show improving AROM to perform functional activities. STG Duration 4 Prison Goal (LTG) Pt's bilateral hip IR to improve to 35 or better to show improving AROM to perform functional activities. 05/15: L hip IR 25 deg, R hip IR 25 -- progressing toward goal LTG Duration 8 Five Impairment Hip AROM Short Term Goal (STG) Pt's bilateral hip ABD to improve to 25 or better to show improving AROM to perform functional activities. STG Duration 4 Elastic Cutter Goal (LTG) Pt's bilateral hip abd to improve to 30 or better to show improving AROM to perform functional activities. 05/15: L hip 20deg, R hip 20 deg - progressing toward goal LTG Duration 8 Four Impairment Hip AROM Short Term Goal (STG) Pt's bilateral hip flexion to improve to 105 or better to show improving AROM to perform functional activities. STG Duration 4 Prison Goal (LTG) Pt's bilateral hip flexion to improve to 115 or better to show improving AROM to perform functional activities. 05/15: L Hip flex 105 deg, R hip 110 deg - progressing toward goal LTG Duration 8 Three Impairment Pain Short Term Goal (STG) Pt to report bilateral hip pain of 5/10 or better with activity to show resolving pain symptoms. STG Duration 4 Prison Goal (LTG) Pt to report bilateral hip pain of 2/10 or better with activity to show resolving pain symptoms. 05/15: 3/10 pain with activity - progressing toward goal LTG Duration 8 Two Impairment MMT Short Term Goal (STG) Pt's gross BLE MMT scores to improve to 4-/5 or better to show improving strength to improve ability to perform functional activities. STG Duration 4 Prison Goal (LTG) Pt's gross BLE MMT scores to improve to 4+/10 or better to show improving strength to improve ability to perform functional activities. 05/15: R hip gross MMT 4-/5 ( abd 4/5, add 3+/5), L hip gross MMT 3+/5 (flex 4-/5) -- Progressing toward goal LTG Duration 8 One Impairment Patient Questionnaire Short Term Goal (STG) Pt's LEFS score to improve to 25/80 or better to show improving subjective report of symptoms for an improved QOL. Prison Goal (LTG) Pt's LEFS score to improve to 45/80 or better to show improving subjective report of symptoms for an improved QOL. 05/15: LEFS 16/80 -- Progressing toward goal LTG Duration 8 Assessment Summary Assessment Pt Physical Therapy Plan Frequency and Duration Frequency of Treatment 2x/Week Duration of treatment (weeks) 8 Plan of Care Start Date 04/01/23 Plan of Care End Date 05/27/23 Therapeutic Interventions Therapeutic Interventions Balance Training,Gait Training ,Home Exercise Program,Joint Mobilizations,Manual Therapy, Neuromuscular Re-education, Patient/Caregiver Education, Self-Care/Home Management,Soft Tissue Mobilization,Taping, Therapeutic Activities, Therapeutic Exercises Modalities Cold Pack/Ice Massage,Electric Stimulation,Hot Packs Next Visit Focus/Plan Next Note Type Treatment Note Next Visit Plan Add hip stretching (piriformis , Fig 4), Review supine/side for hip abd&core strengthening carryover stability gait. Incorporate standing at rail L knee on stool hip IR/ ER slow gentle AROM. Continue with BLE strengthen. Emphasize gait .
--- NOTE | 2023-05-15 15:57 | PT.OTN ---
Current Diagnoses Unilateral primary osteoarthritis, left hip (05/15/23) Physical Therapy Treatment Note PT-OP-A Visit Information Start: 04/01/23 14:20 Freq: Status: Active Protocol: Document 05/15/23 15:00 NM (Rec: 05/15/23 15:57 NM [id number]) Out-Patient Physical Therapy Visit Information Visit Information Visit Type Treatment Note Visit Note 9/ visits after eval Visit Start Time 12:15 Visit Stop Time 13:00 Total Visit Minutes 45 Visit Number 9 Number of HIGH PRESSURE CLEANER Visits 1 Evaluation Information Evaluation Date 04/01/23 PT-OP-B Current Condition Start: 04/01/23 14:20 Freq: Status: Active Protocol: Document 04/01/23 14:32 AB (Rec: 04/01/23 17:38 AB [id number]) Current Condition History of Current Condition Onset Date 3 weeks ago Current Complaints left hip pain History of Current Condition Pt reports she had R FAUZIA ( posterior) in October and L FAUZIA (posterior) 3 weeks ago, but has significant pain in left hip and left knee. She is able to ascend/descend 5 steps with 2 SPC, she report she can walk 50 ft with 4WW before onset of pain. At times her pain refers to her hip, and sometimes down her left leg. She also reports feeling that the stress in her personal life may also be contributing to her symptoms, as she has noticed increased pain with stressful situations (i.e. people arguing, dogs barking, etc). Prior Treatments and Tests PT bilateral FAUZIA as above PT-OP-C Subjective Start: 04/01/23 14:20 Freq: Status: Active Protocol: Document 05/15/23 15:00 NM (Rec: 05/15/23 15:57 NM [id number]) OP-PT Subjective Patient Comments Patient Comments Pt presents to clinic today using straight cane for stability. Pt reports that she is very tired today, and she needs to use the cane today because her L hip is giving her difficulty whenever she tries to stand up. Current pain is 3/10. She reports compliance with her HEP, but she is frustrated today because she doesn't feel like she is making very much progress toward her personal goals (e.g. being able to put on her shoes in hip ER while sitting or being able to stand up wihtout difficulty). Per pt, her hip precautions were removed at 6 weeks post op ( about 2 weeks ago). PT-OP-G Mobility & Gait Start: 04/01/23 14:20 Freq: Status: Active Protocol: Document 04/01/23 14:32 AB (Rec: 04/01/23 17:38 AB [id number]) OP Gait Assessment Assistive Devices Assistive Device 4 Wheeled Walker Gait Deviations General Gait Pattern Antalgic,Decreased Stride Length,Decreased Feet Clearance,Flexed Trunk Factors Limiting Gait Function Factors Limiting Gait Function Decreased Strength,Limited Range of Motion,Pain Comments Gait Comments Pt's gait mechanics improved by adjusting heigt of 4WW. She was educated on heel-to-toe gait pattern to normalize mechanics. PT-OP-J Posture/Palpation/Skin Start: 04/01/23 14:20 Freq: Status: Active Protocol: Document 04/01/23 17:38 AB (Rec: 04/01/23 17:40 AB [id number]) Skin Assessment Incisional Assessment Incision Appearance/Comments left posterior FAUZIA incision appears well healed without abnormal swelling or redness PT-OP-K Range of Motion Start: 04/01/23 14:20 Freq: Status: Active Protocol: Document 05/15/23 15:00 NM (Rec: 05/15/23 15:57 NM [id number]) Hip Goniometric Range of Motion Hip Left Active Testing Position supine, sitting Flexion w/Knee Flexed 105 Extension 0 Abduction 20 Internal Rotation 20 External Rotation 15 Comments no pain but difficult to perform Right Active Testing Position supine, sitting Flexion w/Knee Flexed 120 Extension 0 Abduction 20 Internal Rotation 25 External Rotation 20 PT-OP-M Strength Start: 04/01/23 14:20 Freq: Status: Active Protocol: Document 05/15/23 15:00 NM (Rec: 05/15/23 15:57 NM [id number]) Hip Strength Hip Manual Muscle Testing Right Flexion (L2) 4- Good- Extension (S1) 3+ Fair+ Abduction 4 Good Adduction 3+ Fair+ External Rotation 4- Good- Internal Rotation 4- Good- Left Flexion (L2) 4- Good- Extension (S1) 3+ Fair+ Abduction 3+ Fair+ Adduction 3+ Fair+ External Rotation 3+ Fair+ Internal Rotation 3+ Fair+ Comments Only reports mild discomfort with resisted hip flex, no pain with any of the other resisted motions. Knee Strength Knee Manual Muscle Testing Right Flexion (S2) 4 Good Extension (L3) 4- Good- Left Flexion (S2) 4- Good- Extension (L3) 4- Good- PT-OP-Q Treatments Start: 04/01/23 14:20 Freq: Status: Active Protocol: Document 05/15/23 15:00 NM (Rec: 05/15/23 15:57 NM [id number]) Cardio Equipment Recumbent Stepper (Sci-Fit) Duration (Minutes) 8 Resistance 2 Seat Position 11 Other LEs only- cued knees ABD & // with feet Therapeutic Exercises Standing Exercises Hip IR/ER AROM Side left Equipment Used stool, ballerina bars for stability Reps/Minutes 2x10 Comments tolerated well Therapeutic Activity Therapeutic Activity Seated forward flexion Name Seated fwd trunk flex Reps/Minutes x5 fwd flex (phone, kleenex x2 , shoes x2) Comments Performed to improve ability to greens picker objects from the ground Gait Training Gait Activity Hurdles Description 6 hurdles ~3 ft apart Level of Assistance CGA Surface stable, carpet Distance/Duration 20 ft x 4 reps Treatment Focus Maintaining balance while stepping fwd and laterally over objects to simulate environment Comments Pt requires stabilization during stance while lifting LLE. No cane used today. Pt wanting to go the beach in about 2 weeks PT-OP-R Modalities Start: 04/01/23 14:20 Freq: Status: Active Protocol: Document 05/04/23 08:58 SP (Rec: 05/04/23 09:07 SP [id number]) Electric Stimulation Electric Stimulation Interferential Current (IFC) Body Location L hip Duration (Minutes) 8 Intensity 32 Combined With Heat/Cold Hot Pack PT-OP-T Assessment and Plan Start: 04/01/23 14:20 Freq: Status: Active Protocol: Document 05/15/23 15:00 NM (Rec: 05/15/23 15:57 NM [id number]) Physical Therapy Assessment Impairments Impairments Activity Tolerance,Balance, Functional Activities, Functional Mobility,Gait,Pain, ROM,Soft Tissue Mobility, Strength Goals Eight Impairment Gait Short Term Goal (STG) Pt to walk household distances independently/mod independent with LRAD to show improving gait and tolerance to activity to return to PLOF. STG Duration 4 Residential Goal (LTG) Pt to walk community distances independently/mod independent with LRAD to show improving gait and tolerance to activity to return to PLOF. 1110: Able to ambulate up to 170 ft (up to 1 block) independently with LRAD before requiring rest LTG Duration 8 Seven Impairment Hip AROM Short Term Goal (STG) Pt's bilateral hip ER to improve to 20 or better to show improving AROM to perform functional activities. STG Duration 4 School Social Worker Goal (LTG) Pt's bilateral hip ER to improve to 25 or better to show improving AROM to perform functional activities. 05/15: L hip ER 15 deg, R hip ER 20 deg LTG Duration 8 Six Impairment Hip AROM Short Term Goal (STG) Pt's bilateral hip IR to improve to 30 or better to show improving AROM to perform functional activities. STG Duration 4 Residential Goal (LTG) Pt's bilateral hip IR to improve to 35 or better to show improving AROM to perform functional activities. 05/15: L hip IR 25 deg, R hip IR 25 LTG Duration 8 Five Impairment Hip AROM Short Term Goal (STG) Pt's bilateral hip ABD to improve to 25 or better to show improving AROM to perform functional activities. STG Duration 4 School Social Worker Goal (LTG) Pt's bilateral hip abd to improve to 30 or better to show improving AROM to perform functional activities. 05/15: L hip 20deg, R hip 20 deg LTG Duration 8 Four Impairment Hip AROM Short Term Goal (STG) Pt's bilateral hip flexion to improve to 105 or better to show improving AROM to perform functional activities. STG Duration 4 School Social Worker Goal (LTG) Pt's bilateral hip flexion to improve to 115 or better to show improving AROM to perform functional activities. 05/15: L Hip flex 105 deg, R hip 110 deg LTG Duration 8 Three Impairment Pain Short Term Goal (STG) Pt to report bilateral hip pain of 5/10 or better with activity to show resolving pain symptoms. STG Duration 4 Residential Goal (LTG) Pt to report bilateral hip pain of 2/10 or better with activity to show resolving pain symptoms. 05/15: 3/10 pain with activity LTG Duration 8 Two Impairment MMT Short Term Goal (STG) Pt's gross BLE MMT scores to improve to 4-/5 or better to show improving strength to improve ability to perform functional activities. STG Duration 4 School Social Worker Goal (LTG) Pt's gross BLE MMT scores to improve to 4+/10 or better to show improving strength to improve ability to perform functional activities. 05/15: R hip gross MMT 4-/5 ( abd 4/5, add 3+/5), L hip gross MMT 3+/5 (flex 4-/5) LTG Duration 8 One Impairment Patient Questionnaire Short Term Goal (STG) Pt's LEFS score to improve to 25/80 or better to show improving subjective report of symptoms for an improved QOL. STG Duration 4 School Social Worker Goal (LTG) Pt's LEFS score to improve to 45/80 or better to show improving subjective report of symptoms for an improved QOL. 05/15: LEFS 16/80 LTG Duration 8 Assessment Summary Assessment Pt tolerated treatment well, but was very distressed about her current level of progress toward her goals. Today pt report 3/10 pain with activity and is using a straight cane for ambulation due to difficulty with moving from sit > stand today. Pt is motivated overall in her exercises. Initiated gentle hip IR and ER using a stool while holding a stable surface to improve hip AROM. L hip ROM and strength tested today, LLE is more limited than RLE. She shows progress from her initial evaluation, but is still limited by weakness and fatigue. Pt would benefit from continued skilled PT to address impairments in strength, balance, ROM, gait, and activity tolerance. Physical Therapy Plan Frequency and Duration Frequency of Treatment 2x/Week Duration of treatment (weeks) 8 Plan of Care Start Date 04/01/23 Plan of Care End Date 05/27/23 Therapeutic Interventions Therapeutic Interventions Balance Training,Gait Training ,Home Exercise Program,Joint Mobilizations,Manual Therapy, Neuromuscular Re-education, Patient/Caregiver Education, Self-Care/Home Management,Soft Tissue Mobilization,Taping, Therapeutic Activities, Therapeutic Exercises Modalities Cold Pack/Ice Massage,Electric Stimulation,Hot Packs Next Visit Focus/Plan Next Note Type Treatment Note Next Visit Plan Add hip stretching (piriformis , Fig 4), Review supine/side for hip abd&core strengthening carryover stability gait. Incorporate standing at rail L knee on stool hip IR/ ER slow gentle AROM. Continue with BLE strengthen. Emphasize gait .
--- NOTE | 2023-05-15 16:21 | PT.OPPOC ---
Physical, Occupational & Speech Therapy At [facility] Current Diagnoses Unilateral primary osteoarthritis, left hip (05/15/23) Visit Care Team Role Provider Type Renetta Higginbotham MD Family Provider Physician Primary Care Provider Specialty: Internal Medicine Address: [place], [address] Email: Sarah Rodriguez PA-C Attending Provider Non-Staff Referring Provider Specialty: General Surgery Address: [address] [place] [address], [id number] Email: Plan Of Care PT-OP-T Assessment and Plan Start: 04/01/23 14:20 Freq: Status: Active Protocol: Document 05/15/23 16:00 NM (Rec: 05/15/23 16:21 NM [id number]) Physical Therapy Assessment Rehab Potential Rehabilitation Potential Fair Evaluation Complexity Number of Personal Factors/Comorbidities 3 or More Number of Body Systems Impaired 1-2 Clinical Presentation at Evaluation Stable Impairments Impairments Activity Tolerance,Balance, Functional Activities, Functional Mobility,Gait,Pain, ROM,Soft Tissue Mobility, Strength Goals Eight Impairment Gait Short Term Goal (STG) Pt to walk household distances independently/mod independent with LRAD to show improving gait and tolerance to activity to return to PLOF. STG Duration 4 Fci Goal (LTG) Pt to walk community distances independently/mod independent with LRAD to show improving gait and tolerance to activity to return to PLOF. 05/15: Able to ambulate up to 170 ft (up to 1 block) independently with LRAD before requiring rest -- progressing toward goal LTG Duration 8 Seven Impairment Hip AROM Short Term Goal (STG) Pt's bilateral hip ER to improve to 20 or better to show improving AROM to perform functional activities. STG Duration 4 Weight Clerk Goal (LTG) Pt's bilateral hip ER to improve to 25 or better to show improving AROM to perform functional activities. 05/15: L hip ER 15 deg, R hip ER 20 deg --progressing toward goal LTG Duration 8 Six Impairment Hip AROM Short Term Goal (STG) Pt's bilateral hip IR to improve to 30 or better to show improving AROM to perform functional activities. STG Duration 4 Fci Goal (LTG) Pt's bilateral hip IR to improve to 35 or better to show improving AROM to perform functional activities. 05/15: L hip IR 25 deg, R hip IR 25 -- progressing toward goal LTG Duration 8 Five Impairment Hip AROM Short Term Goal (STG) Pt's bilateral hip ABD to improve to 25 or better to show improving AROM to perform functional activities. STG Duration 4 Fci Goal (LTG) Pt's bilateral hip abd to improve to 30 or better to show improving AROM to perform functional activities. 05/15: L hip 20deg, R hip 20 deg - progressing toward goal LTG Duration 8 Four Impairment Hip AROM Short Term Goal (STG) Pt's bilateral hip flexion to improve to 105 or better to show improving AROM to perform functional activities. STG Duration 4 Weight Clerk Goal (LTG) Pt's bilateral hip flexion to improve to 115 or better to show improving AROM to perform functional activities. 05/15: L Hip flex 105 deg, R hip 110 deg - progressing toward goal LTG Duration 8 Three Impairment Pain Short Term Goal (STG) Pt to report bilateral hip pain of 5/10 or better with activity to show resolving pain symptoms. STG Duration 4 Weight Clerk Goal (LTG) Pt to report bilateral hip pain of 2/10 or better with activity to show resolving pain symptoms. 05/15: 3/10 pain with activity - progressing toward goal LTG Duration 8 Two Impairment MMT Short Term Goal (STG) Pt's gross BLE MMT scores to improve to 4-/5 or better to show improving strength to improve ability to perform functional activities. STG Duration 4 Fci Goal (LTG) Pt's gross BLE MMT scores to improve to 4+/10 or better to show improving strength to improve ability to perform functional activities. 05/15: R hip gross MMT 4-/5 ( abd 4/5, add 3+/5), L hip gross MMT 3+/5 (flex 4-/5) -- Progressing toward goal LTG Duration 8 One Impairment Patient Questionnaire Short Term Goal (STG) Pt's LEFS score to improve to 25/80 or better to show improving subjective report of symptoms for an improved QOL. Fci Goal (LTG) Pt's LEFS score to improve to 45/80 or better to show improving subjective report of symptoms for an improved QOL. 05/15: LEFS 16/80 -- Progressing toward goal LTG Duration 8 Progress Towards Goals Progress Towards Goals Slow Progress due to Activity Tolerance Assessment Summary Assessment Pt is a 77 y.o. female s/p L FAUZIA, now about 7 weeks out. Pt is slowly progressing toward functional goals, but has not met any at this time. She is able to ambulate about 170 ft consistently without an AD before requiring rest due to decreased endurance and increased pain. She is ambulating independently without an AD on stable, flat surfaces but does occasionally still use a can for balance on uneven surfaces or if she is tired. Gait is still mildly antalgic with mild sway and decreased step length; pt would benefit from further training to promote normal gait and to decrease fall risk . Currently, she is most limited by decreased B hip ROM and B hip strength. Pt's B global hip AROM prevents her from being able to perform functional ADLs. Her global L hip MMT scores are 3+/5, while her R hip MMT is avg 4/5. Pt did improve in LEFS score indicating better functional mobility and pain management; however, she is still not back to levels of activity similar to PLOF. Pt would benefit from continued skilled PT to address impairments in gait, endurance, balance, BLE strength and ROM, and pain management in order to improve overall quality of life, decrease fall risk, activity tolerance, and to return to PLOF. Physical Therapy Plan Frequency and Duration Frequency of Treatment 2x/Week Duration of treatment (weeks) 8 Plan of Care Start Date 04/01/23 Plan of Care End Date 05/27/23 Therapeutic Interventions Therapeutic Interventions Balance Training,Gait Training ,Home Exercise Program,Joint Mobilizations,Manual Therapy, Neuromuscular Re-education, Patient/Caregiver Education, Self-Care/Home Management,Soft Tissue Mobilization,Taping, Therapeutic Activities, Therapeutic Exercises Modalities Cold Pack/Ice Massage,Electric Stimulation,Hot Packs Next Visit Focus/Plan Next Note Type Treatment Note Next Visit Plan Add hip stretching (piriformis , Fig 4), Review supine/side for hip abd&core strengthening carryover stability gait. Incorporate standing at rail L knee on stool hip IR/ ER slow gentle AROM. Continue with BLE strengthen. Emphasize gait . Plan of Care Dates Plan of Care Start Date 04/01/23 Plan of Care End Date 05/27/23 Electronically Signed by: Lisa Montemayor, PT 05/15/23 [id number] If you are in agreement with this Plan of Care, please return a signed and dated copy. I have reviewed this Plan of Care and certify that the skilled therapy services above are required to meet the patient?s needs. Physician Signature Date Printed Name and Credentials Clinical Instructor Signature Printed Name and Credentials
--- NOTE | 2023-05-15 16:28 | PT.OPPOC ---
Physical, Occupational & Speech Therapy At [facility] Current Diagnoses Unilateral primary osteoarthritis, left hip (05/15/23) Visit Care Team Role Provider Type Renetta Higginbotham MD Family Provider Physician Primary Care Provider Specialty: Internal Medicine Address: [place], [address] Email: Sarah Rodriguez PA-C Attending Provider Non-Staff Referring Provider Specialty: General Surgery Address: [address] [place] [address], [id number] Email: Plan Of Care PT-OP-T Assessment and Plan Start: 04/01/23 14:20 Freq: Status: Active Protocol: Document 05/15/23 16:00 NM (Rec: 05/15/23 16:21 NM [id number]) Physical Therapy Assessment Rehab Potential Rehabilitation Potential Fair Evaluation Complexity Number of Personal Factors/Comorbidities 3 or More Number of Body Systems Impaired 1-2 Clinical Presentation at Evaluation Stable Impairments Impairments Activity Tolerance,Balance, Functional Activities, Functional Mobility,Gait,Pain, ROM,Soft Tissue Mobility, Strength Goals Eight Impairment Gait Short Term Goal (STG) Pt to walk household distances independently/mod independent with LRAD to show improving gait and tolerance to activity to return to PLOF. STG Duration 4 Fdc Goal (LTG) Pt to walk community distances independently/mod independent with LRAD to show improving gait and tolerance to activity to return to PLOF. 05/15: Able to ambulate up to 170 ft (up to 1 block) independently with LRAD before requiring rest -- progressing toward goal LTG Duration 8 Seven Impairment Hip AROM Short Term Goal (STG) Pt's bilateral hip ER to improve to 20 or better to show improving AROM to perform functional activities. STG Duration 4 Shoder Filler Goal (LTG) Pt's bilateral hip ER to improve to 25 or better to show improving AROM to perform functional activities. 05/15: L hip ER 15 deg, R hip ER 20 deg --progressing toward goal LTG Duration 8 Six Impairment Hip AROM Short Term Goal (STG) Pt's bilateral hip IR to improve to 30 or better to show improving AROM to perform functional activities. STG Duration 4 Fdc Goal (LTG) Pt's bilateral hip IR to improve to 35 or better to show improving AROM to perform functional activities. 05/15: L hip IR 25 deg, R hip IR 25 -- progressing toward goal LTG Duration 8 Five Impairment Hip AROM Short Term Goal (STG) Pt's bilateral hip ABD to improve to 25 or better to show improving AROM to perform functional activities. STG Duration 4 Fdc Goal (LTG) Pt's bilateral hip abd to improve to 30 or better to show improving AROM to perform functional activities. 05/15: L hip 20deg, R hip 20 deg - progressing toward goal LTG Duration 8 Four Impairment Hip AROM Short Term Goal (STG) Pt's bilateral hip flexion to improve to 105 or better to show improving AROM to perform functional activities. STG Duration 4 Shoder Filler Goal (LTG) Pt's bilateral hip flexion to improve to 115 or better to show improving AROM to perform functional activities. 05/15: L Hip flex 105 deg, R hip 110 deg - progressing toward goal LTG Duration 8 Three Impairment Pain Short Term Goal (STG) Pt to report bilateral hip pain of 5/10 or better with activity to show resolving pain symptoms. STG Duration 4 Shoder Filler Goal (LTG) Pt to report bilateral hip pain of 2/10 or better with activity to show resolving pain symptoms. 05/15: 3/10 pain with activity - progressing toward goal LTG Duration 8 Two Impairment MMT Short Term Goal (STG) Pt's gross BLE MMT scores to improve to 4-/5 or better to show improving strength to improve ability to perform functional activities. STG Duration 4 Fdc Goal (LTG) Pt's gross BLE MMT scores to improve to 4+/10 or better to show improving strength to improve ability to perform functional activities. 05/15: R hip gross MMT 4-/5 ( abd 4/5, add 3+/5), L hip gross MMT 3+/5 (flex 4-/5) -- Progressing toward goal LTG Duration 8 One Impairment Patient Questionnaire Short Term Goal (STG) Pt's LEFS score to improve to 25/80 or better to show improving subjective report of symptoms for an improved QOL. Fdc Goal (LTG) Pt's LEFS score to improve to 45/80 or better to show improving subjective report of symptoms for an improved QOL. 05/15: LEFS 16/80 -- Progressing toward goal LTG Duration 8 Progress Towards Goals Progress Towards Goals Slow Progress due to Activity Tolerance,Slow Progress due to Attendance Issues Progress Comments Pt primarily has limited activity tolerance Assessment Summary Assessment Pt is a 77 y.o. female s/p L FAUZIA, now about 7 weeks out. Pt is slowly progressing toward functional goals. She is able to ambulate about 170 ft consistently without an AD before requiring rest due to decreased endurance and increased pain. She is ambulating independently without an AD on stable, flat surfaces but does occasionally still use a can for balance on uneven surfaces or if she is tired. Gait is still mildly antalgic with mild sway and decreased step length; pt would benefit from further training to promote normal gait and to decrease fall risk . Currently, she is most limited by decreased B hip ROM and B hip strength. Pt's B global hip AROM prevents her from being able to perform functional ADLs. Her global L hip MMT scores are 3+/5, while her R hip MMT is avg 4/5. Pt did improve in LEFS score indicating better functional mobility and pain management; however, she is still not back to levels of activity similar to PLOF. Pt would benefit from continued skilled PT to address impairments in gait, endurance, balance, BLE strength and ROM, and pain management in order to improve overall quality of life, activity tolerance, and to return to PLOF. Physical Therapy Plan Frequency and Duration Frequency of Treatment 2x/Week Duration of treatment (weeks) 8 Plan of Care Start Date 04/01/23 Plan of Care End Date 07/17/21 Therapeutic Interventions Therapeutic Interventions Balance Training,Gait Training ,Home Exercise Program,Joint Mobilizations,Manual Therapy, Neuromuscular Re-education, Patient/Caregiver Education, Self-Care/Home Management,Soft Tissue Mobilization,Taping, Therapeutic Activities, Therapeutic Exercises Modalities Cold Pack/Ice Massage,Electric Stimulation,Hot Packs Next Visit Focus/Plan Next Note Type Treatment Note Next Visit Plan Add hip stretching (piriformis , Fig 4), Review supine/side for hip abd&core strengthening carryover stability gait. Incorporate standing at rail L knee on stool hip IR/ ER slow gentle AROM. Continue with BLE strengthen. Emphasize gait . Plan of Care Dates Plan of Care Start Date 04/01/23 Plan of Care End Date 07/17/21 Electronically Signed by: Lisa Montemayor, PT 05/15/23 3051 If you are in agreement with this Plan of Care, please return a signed and dated copy. I have reviewed this Plan of Care and certify that the skilled therapy services above are required to meet the patient?s needs. Physician Signature Date Printed Name and Credentials Clinical Instructor Signature Printed Name and Credentials
--- NOTE | 2023-05-18 07:38 | PT.OPPN ---
Current Diagnoses Unilateral primary osteoarthritis, left hip (05/15/23) Physical Therapy Progress Note PT-OP-A Visit Information Start: 04/01/23 14:20 Freq: Status: Active Protocol: Document 05/15/23 16:00 NM (Rec: 05/15/23 16:21 NM [id number]) Out-Patient Physical Therapy Visit Information Visit Information Visit Type Progress Note Visit Start Time 12:15 Visit Stop Time 13:00 Total Visit Minutes 45 Visit Number 9 Number of GROUP CONTRACT ANALYST Visits 1 Evaluation Information Evaluation Date 04/01/23 PT-OP-B Current Condition Start: 04/01/23 14:20 Freq: Status: Active Protocol: Document 05/15/23 16:00 NM (Rec: 05/15/23 16:21 NM [id number]) Current Condition History of Current Condition Onset Date 3 weeks ago Current Complaints left hip pain History of Current Condition Pt reports she had R FAUZIA ( posterior) in October and L FAUZIA (posterior) 3 weeks ago, but has significant pain in left hip and left knee. She is able to ascend/descend 5 steps with 2 SPC, she report she can walk 50 ft with 4WW before onset of pain. At times her pain refers to her hip, and sometimes down her left leg. She also reports feeling that the stress in her personal life may also be contributing to her symptoms, as she has noticed increased pain with stressful situations (i.e. people arguing, dogs barking, etc). Prior Treatments and Tests PT bilateral FAUZIA as above PT-OP-C Subjective Start: 04/01/23 14:20 Freq: Status: Active Protocol: Document 05/15/23 16:00 NM (Rec: 05/15/23 16:21 NM [id number]) OP-PT Subjective Patient Comments Patient Comments Pt presents to clinic today using straight cane for stability. Pt reports that she is very tired today, and she needs to use the cane today because her L hip is giving her difficulty whenever she tries to stand up. Current pain is 3/10. She reports compliance with her HEP, but she is frustrated today because she doesn't feel like she is making very much progress toward her personal goals (e.g. being able to put on her shoes in hip ER while sitting or being able to stand up wihtout difficulty). Per pt, her hip precautions were removed at 6 weeks post op ( about 2 weeks ago). PT-OP-G Mobility & Gait Start: 04/01/23 14:20 Freq: Status: Active Protocol: Document 04/01/23 14:32 AB (Rec: 04/01/23 17:38 AB [id number]) OP Gait Assessment Assistive Devices Assistive Device 4 Wheeled Walker Gait Deviations General Gait Pattern Antalgic,Decreased Stride Length,Decreased Feet Clearance,Flexed Trunk Factors Limiting Gait Function Factors Limiting Gait Function Decreased Strength,Limited Range of Motion,Pain Comments Gait Comments Pt's gait mechanics improved by adjusting heigt of 4WW. She was educated on heel-to-toe gait pattern to normalize mechanics. PT-OP-J Posture/Palpation/Skin Start: 04/01/23 14:20 Freq: Status: Active Protocol: Document 04/01/23 17:38 AB (Rec: 04/01/23 17:40 AB [id number]) Skin Assessment Incisional Assessment Incision Appearance/Comments left posterior FAUZIA incision appears well healed without abnormal swelling or redness PT-OP-K Range of Motion Start: 04/01/23 14:20 Freq: Status: Active Protocol: Document 05/15/23 16:00 NM (Rec: 05/15/23 16:21 NM [id number]) Hip Goniometric Range of Motion Hip Measured in Degrees Left Active Testing Position supine, sitting Flexion w/Knee Flexed 105 Extension 0 Abduction 20 Internal Rotation 20 External Rotation 15 Comments no pain but difficult to perform Right Active Testing Position supine, sitting Flexion w/Knee Flexed 120 Extension 0 Abduction 20 Internal Rotation 25 External Rotation 20 PT-OP-M Strength Start: 04/01/23 14:20 Freq: Status: Active Protocol: Document 05/15/23 16:00 NM (Rec: 05/15/23 16:21 NM [id number]) Hip Strength Hip Manual Muscle Testing Right Flexion (L2) 4- Good- Extension (S1) 3+ Fair+ Abduction 4 Good Adduction 3+ Fair+ External Rotation 4- Good- Internal Rotation 4- Good- Left Flexion (L2) 4- Good- Extension (S1) 3+ Fair+ Abduction 3+ Fair+ Adduction 3+ Fair+ External Rotation 3+ Fair+ Internal Rotation 3+ Fair+ Comments Only reports mild discomfort with resisted hip flex, no pain with any of the other resisted motions. Knee Strength Knee Manual Muscle Testing Right Flexion (S2) 4 Good Extension (L3) 4- Good- Left Flexion (S2) 4- Good- Extension (L3) 4- Good- PT-OP-T Assessment and Plan Start: 04/01/23 14:20 Freq: Status: Active Protocol: Document 05/15/23 16:00 NM (Rec: 05/15/23 16:21 NM [id number]) Physical Therapy Assessment Rehab Potential Rehabilitation Potential Fair Evaluation Complexity Number of Personal Factors/Comorbidities 3 or More Number of Body Systems Impaired 1-2 Clinical Presentation at Evaluation Stable Impairments Impairments Activity Tolerance,Balance, Functional Activities, Functional Mobility,Gait,Pain, ROM,Soft Tissue Mobility, Strength Goals Eight Impairment Gait Short Term Goal (STG) Pt to walk household distances independently/mod independent with LRAD to show improving gait and tolerance to activity to return to PLOF. STG Duration 4 Senior Living Goal (LTG) Pt to walk community distances independently/mod independent with LRAD to show improving gait and tolerance to activity to return to PLOF. 05/15: Able to ambulate up to 170 ft (up to 1 block) independently with LRAD before requiring rest -- progressing toward goal LTG Duration 8 Seven Impairment Hip AROM Short Term Goal (STG) Pt's bilateral hip ER to improve to 20 or better to show improving AROM to perform functional activities. STG Duration 4 Mess Cook Goal (LTG) Pt's bilateral hip ER to improve to 25 or better to show improving AROM to perform functional activities. 05/15: L hip ER 15 deg, R hip ER 20 deg --progressing toward goal LTG Duration 8 Six Impairment Hip AROM Short Term Goal (STG) Pt's bilateral hip IR to improve to 30 or better to show improving AROM to perform functional activities. STG Duration 4 Mess Cook Goal (LTG) Pt's bilateral hip IR to improve to 35 or better to show improving AROM to perform functional activities. 05/15: L hip IR 25 deg, R hip IR 25 -- progressing toward goal LTG Duration 8 Five Impairment Hip AROM Short Term Goal (STG) Pt's bilateral hip ABD to improve to 25 or better to show improving AROM to perform functional activities. STG Duration 4 Senior Living Goal (LTG) Pt's bilateral hip abd to improve to 30 or better to show improving AROM to perform functional activities. 05/15: L hip 20deg, R hip 20 deg - progressing toward goal LTG Duration 8 Four Impairment Hip AROM Short Term Goal (STG) Pt's bilateral hip flexion to improve to 105 or better to show improving AROM to perform functional activities. STG Duration 4 Senior Living Goal (LTG) Pt's bilateral hip flexion to improve to 115 or better to show improving AROM to perform functional activities. 05/15: L Hip flex 105 deg, R hip 110 deg - progressing toward goal LTG Duration 8 Three Impairment Pain Short Term Goal (STG) Pt to report bilateral hip pain of 5/10 or better with activity to show resolving pain symptoms. STG Duration 4 Senior Living Goal (LTG) Pt to report bilateral hip pain of 2/10 or better with activity to show resolving pain symptoms. 05/15: 3/10 pain with activity - progressing toward goal LTG Duration 8 Two Impairment MMT Short Term Goal (STG) Pt's gross BLE MMT scores to improve to 4-/5 or better to show improving strength to improve ability to perform functional activities. STG Duration 4 Mess Cook Goal (LTG) Pt's gross BLE MMT scores to improve to 4+/10 or better to show improving strength to improve ability to perform functional activities. 05/15: R hip gross MMT 4-/5 ( abd 4/5, add 3+/5), L hip gross MMT 3+/5 (flex 4-/5) -- Progressing toward goal LTG Duration 8 One Impairment Patient Questionnaire Short Term Goal (STG) Pt's LEFS score to improve to 25/80 or better to show improving subjective report of symptoms for an improved QOL. Mess Cook Goal (LTG) Pt's LEFS score to improve to 45/80 or better to show improving subjective report of symptoms for an improved QOL. 05/15: LEFS 16/80 -- Progressing toward goal LTG Duration 8 Progress Towards Goals Progress Towards Goals Slow Progress due to Activity Tolerance,Slow Progress due to Attendance Issues Progress Comments Pt primarily has limited activity tolerance Assessment Summary Assessment Pt is a 77 y.o. female s/p L FAUZIA, now about 7 weeks out. Pt is slowly progressing toward functional goals. She is able to ambulate about 170 ft consistently without an AD before requiring rest due to decreased endurance and increased pain. She is ambulating independently without an AD on stable, flat surfaces but does occasionally still use a can for balance on uneven surfaces or if she is tired. Gait is still mildly antalgic with mild sway and decreased step length; pt would benefit from further training to promote normal gait and to decrease fall risk . Currently, she is most limited by decreased B hip ROM and B hip strength. Pt's B global hip AROM prevents her from being able to perform functional ADLs. Her global L hip MMT scores are 3+/5, while her R hip MMT is avg 4/5. Pt did improve in LEFS score indicating better functional mobility and pain management; however, she is still not back to levels of activity similar to PLOF. Pt would benefit from continued skilled PT to address impairments in gait, endurance, balance, BLE strength and ROM, and pain management in order to improve overall quality of life, activity tolerance, and to return to PLOF. Physical Therapy Plan Frequency and Duration Frequency of Treatment 2x/Week Duration of treatment (weeks) 8 Plan of Care Start Date 04/01/23 Plan of Care End Date 05/27/23 Therapeutic Interventions Therapeutic Interventions Balance Training,Gait Training ,Home Exercise Program,Joint Mobilizations,Manual Therapy, Neuromuscular Re-education, Patient/Caregiver Education, Self-Care/Home Management,Soft Tissue Mobilization,Taping, Therapeutic Activities, Therapeutic Exercises Modalities Cold Pack/Ice Massage,Electric Stimulation,Hot Packs Next Visit Focus/Plan Next Note Type Treatment Note Next Visit Plan Add hip stretching (piriformis , Fig 4), Review supine/side for hip abd&core strengthening carryover stability gait. Incorporate standing at rail L knee on stool hip IR/ ER slow gentle AROM. Continue with BLE strengthen. Emphasize gait .
--- NOTE | 2023-05-18 13:00 | PT.OTN ---
Current Diagnoses Unilateral primary osteoarthritis, left hip (05/20/23) Physical Therapy Treatment Note PT-OP-A Visit Information Start: 04/01/23 14:20 Freq: Status: Active Protocol: Document 05/20/23 16:00 SP (Rec: 05/18/23 13:01 SP [id number]) Out-Patient Physical Therapy Visit Information Visit Information Visit Type Treatment Note Visit Note 07/15 after PN Visit Start Time 12:17 Visit Stop Time 13:00 Total Visit Minutes 43 Visit Number 10 Number of NUCLEAR MEDICINE SUPERVISOR Visits 1 Evaluation Information Evaluation Date 04/01/23 PT-OP-B Current Condition Start: 04/01/23 14:20 Freq: Status: Active Protocol: Document 05/15/23 16:00 NM (Rec: 05/15/23 16:21 NM [id number]) Current Condition History of Current Condition Onset Date 3 weeks ago Current Complaints left hip pain History of Current Condition Pt reports she had R FAUZIA ( posterior) in October and L FAUZIA (posterior) 3 weeks ago, but has significant pain in left hip and left knee. She is able to ascend/descend 5 steps with 2 SPC, she report she can walk 50 ft with 4WW before onset of pain. At times her pain refers to her hip, and sometimes down her left leg. She also reports feeling that the stress in her personal life may also be contributing to her symptoms, as she has noticed increased pain with stressful situations (i.e. people arguing, dogs barking, etc). Prior Treatments and Tests PT bilateral FAUZIA as above PT-OP-C Subjective Start: 04/01/23 14:20 Freq: Status: Active Protocol: Document 05/20/23 16:00 SP (Rec: 05/18/23 13:01 SP [id number]) OP-PT Subjective Patient Comments Patient Comments Pt reports still PT-OP-G Mobility & Gait Start: 04/01/23 14:20 Freq: Status: Active Protocol: Document 04/01/23 14:32 AB (Rec: 04/01/23 17:38 AB [id number]) OP Gait Assessment Assistive Devices Assistive Device 4 Wheeled Walker Gait Deviations General Gait Pattern Antalgic,Decreased Stride Length,Decreased Feet Clearance,Flexed Trunk Factors Limiting Gait Function Factors Limiting Gait Function Decreased Strength,Limited Range of Motion,Pain Comments Gait Comments Pt's gait mechanics improved by adjusting heigt of 4WW. She was educated on heel-to-toe gait pattern to normalize mechanics. PT-OP-J Posture/Palpation/Skin Start: 04/01/23 14:20 Freq: Status: Active Protocol: Document 04/01/23 17:38 AB (Rec: 04/01/23 17:40 AB [id number]) Skin Assessment Incisional Assessment Incision Appearance/Comments left posterior FAUZIA incision appears well healed without abnormal swelling or redness PT-OP-K Range of Motion Start: 04/01/23 14:20 Freq: Status: Active Protocol: Document 05/15/23 16:00 NM (Rec: 05/15/23 16:21 NM [id number]) Hip Goniometric Range of Motion Hip Left Active Testing Position supine, sitting Flexion w/Knee Flexed 105 Extension 0 Abduction 20 Internal Rotation 20 External Rotation 15 Comments no pain but difficult to perform Right Active Testing Position supine, sitting Flexion w/Knee Flexed 120 Extension 0 Abduction 20 Internal Rotation 25 External Rotation 20 PT-OP-M Strength Start: 04/01/23 14:20 Freq: Status: Active Protocol: Document 05/15/23 16:00 NM (Rec: 05/15/23 16:21 NM [id number]) Hip Strength Hip Manual Muscle Testing Right Flexion (L2) 4- Good- Extension (S1) 3+ Fair+ Abduction 4 Good Adduction 3+ Fair+ External Rotation 4- Good- Internal Rotation 4- Good- Left Flexion (L2) 4- Good- Extension (S1) 3+ Fair+ Abduction 3+ Fair+ Adduction 3+ Fair+ External Rotation 3+ Fair+ Internal Rotation 3+ Fair+ Comments Only reports mild discomfort with resisted hip flex, no pain with any of the other resisted motions. Knee Strength Knee Manual Muscle Testing Right Flexion (S2) 4 Good Extension (L3) 4- Good- Left Flexion (S2) 4- Good- Extension (L3) 4- Good- PT-OP-Q Treatments Start: 04/01/23 14:20 Freq: Status: Active Protocol: Document 05/20/23 16:00 SP (Rec: 05/18/23 13:01 SP [id number]) Cardio Equipment Recumbent Stepper (Sci-Fit) Duration (Minutes) 6 Resistance 2.5 Seat Position 10- 0.64 miles Other LEs only- cued feet/knee //, 40 RPMs 40 Gym Equipment Cable Column (Body Solid) LE ext Details reports very tiring this is hard Resistance #1 plate Reps/Time 3x5 reps Therapeutic Exercises Sitting Exercises LAQ Sitting Exercise Name added to HEP Side bilateral Resistance TB #1 (light blue latex) Equipment Used target to therapist hand initially Reps/Minutes 2x10 reps Comments cued set up, mid quad height kick- good muscle tiring response Standing Exercises step ups Standing Exercise Name ascend/back descend performed on stairs Equipment Used 6 stairs 0-1 HR light, 8 step 2 reps hand on lap 5 reps each LE SPC/Trek Comments cued TKE, soft stepping up/ back down- improves core& hip abd support Neuro Re-Education Treatment Balance Activities incline/decline Details hill: 4 step, 2 set wedges, blue mat over Equipment + 2>5 hurdles Comments Min> CGA PT-OP-R Modalities Start: 04/01/23 14:20 Freq: Status: Active Protocol: Document 05/04/23 08:58 SP (Rec: 05/04/23 09:07 SP [id number]) Electric Stimulation Electric Stimulation Interferential Current (IFC) Body Location L hip Duration (Minutes) 8 Intensity 32 Combined With Heat/Cold Hot Pack PT-OP-T Assessment and Plan Start: 04/01/23 14:20 Freq: Status: Active Protocol: Document 05/20/23 16:00 SP (Rec: 05/18/23 13:01 SP [id number]) Physical Therapy Assessment Goals Eight Impairment Gait Short Term Goal (STG) Pt to walk household distances independently/mod independent with LRAD to show improving gait and tolerance to activity to return to PLOF. STG Duration 4 Retirement Goal (LTG) Pt to walk community distances independently/mod independent with LRAD to show improving gait and tolerance to activity to return to PLOF. 05/15: Able to ambulate up to 170 ft (up to 1 block) independently with LRAD before requiring rest -- progressing toward goal LTG Duration 8 Seven Impairment Hip AROM Short Term Goal (STG) Pt's bilateral hip ER to improve to 20 or better to show improving AROM to perform functional activities. STG Duration 4 Farm Contractor Buyer Goal (LTG) Pt's bilateral hip ER to improve to 25 or better to show improving AROM to perform functional activities. 05/15: L hip ER 15 deg, R hip ER 20 deg --progressing toward goal LTG Duration 8 Six Impairment Hip AROM Short Term Goal (STG) Pt's bilateral hip IR to improve to 30 or better to show improving AROM to perform functional activities. STG Duration 4 Farm Contractor Buyer Goal (LTG) Pt's bilateral hip IR to improve to 35 or better to show improving AROM to perform functional activities. 05/15: L hip IR 25 deg, R hip IR 25 -- progressing toward goal LTG Duration 8 Five Impairment Hip AROM Short Term Goal (STG) Pt's bilateral hip ABD to improve to 25 or better to show improving AROM to perform functional activities. STG Duration 4 Farm Contractor Buyer Goal (LTG) Pt's bilateral hip abd to improve to 30 or better to show improving AROM to perform functional activities. 05/15: L hip 20deg, R hip 20 deg - progressing toward goal LTG Duration 8 Four Impairment Hip AROM Short Term Goal (STG) Pt's bilateral hip flexion to improve to 105 or better to show improving AROM to perform functional activities. STG Duration 4 Farm Contractor Buyer Goal (LTG) Pt's bilateral hip flexion to improve to 115 or better to show improving AROM to perform functional activities. 05/15: L Hip flex 105 deg, R hip 110 deg - progressing toward goal LTG Duration 8 Three Impairment Pain Short Term Goal (STG) Pt to report bilateral hip pain of 5/10 or better with activity to show resolving pain symptoms. STG Duration 4 Farm Contractor Buyer Goal (LTG) Pt to report bilateral hip pain of 2/10 or better with activity to show resolving pain symptoms. 05/15: 3/10 pain with activity - progressing toward goal LTG Duration 8 Two Impairment MMT Short Term Goal (STG) Pt's gross BLE MMT scores to improve to 4-/5 or better to show improving strength to improve ability to perform functional activities. STG Duration 4 Farm Contractor Buyer Goal (LTG) Pt's gross BLE MMT scores to improve to 4+/10 or better to show improving strength to improve ability to perform functional activities. 05/15: R hip gross MMT 4-/5 ( abd 4/5, add 3+/5), L hip gross MMT 3+/5 (flex 4-/5) -- Progressing toward goal LTG Duration 8 One Impairment Patient Questionnaire Short Term Goal (STG) Pt's LEFS score to improve to 25/80 or better to show improving subjective report of symptoms for an improved QOL. Farm Contractor Buyer Goal (LTG) Pt's LEFS score to improve to 45/80 or better to show improving subjective report of symptoms for an improved QOL. 05/15: LEFS 16/80 -- Progressing toward goal LTG Duration 8 Assessment Summary Assessment Pt improved quad facilitation engagement and lessening UE support during step ups post LE extension machine and carryover LAQ with good understanding how to continue at home with TB. Pt decreased need of outside support as reps and more confidence stability during trial uneven incline/decline with ability to add hurdles to step over. Physical Therapy Plan Frequency and Duration Frequency of Treatment 2x/Week Duration of treatment (weeks) 8 Plan of Care Start Date 04/01/23 Plan of Care End Date 07/17/23 Therapeutic Interventions Therapeutic Interventions Balance Training,Gait Training ,Home Exercise Program,Joint Mobilizations,Manual Therapy, Neuromuscular Re-education, Patient/Caregiver Education, Self-Care/Home Management,Soft Tissue Mobilization,Taping, Therapeutic Activities, Therapeutic Exercises Modalities Cold Pack/Ice Massage,Electric Stimulation,Hot Packs Next Visit Focus/Plan Next Note Type Treatment Note Next Visit Plan Add hip stretching (piriformis , Fig 4), Review supine/side for hip abd&core strengthening carryover stability gait. Incorporate standing at rail L knee on stool hip IR/ ER slow gentle AROM. Continue with BLE strengthen. Emphasize gait .
--- NOTE | 2023-05-19 08:07 | PT.OPPN ---
Current Diagnoses Unilateral primary osteoarthritis, left hip (05/18/23) Physical Therapy Progress Note PT-OP-A Visit Information Start: 04/01/23 14:20 Freq: Status: Active Protocol: Document 05/15/23 08:06 NM (Rec: 05/15/23 16:21 NM [id number]) Out-Patient Physical Therapy Visit Information Visit Information Visit Type Progress Note Visit Start Time 12:15 Visit Stop Time 13:00 Total Visit Minutes 45 Visit Number 9 Number of GAGE MAKER Visits 1 Evaluation Information Evaluation Date 04/01/23 PT-OP-B Current Condition Start: 04/01/23 14:20 Freq: Status: Active Protocol: Document 05/15/23 08:06 NM (Rec: 05/15/23 16:21 NM [id number]) Current Condition History of Current Condition Onset Date 3 weeks ago Current Complaints left hip pain History of Current Condition Pt reports she had R FAUZIA ( posterior) in October and L FAUZIA (posterior) 3 weeks ago, but has significant pain in left hip and left knee. She is able to ascend/descend 5 steps with 2 SPC, she report she can walk 50 ft with 4WW before onset of pain. At times her pain refers to her hip, and sometimes down her left leg. She also reports feeling that the stress in her personal life may also be contributing to her symptoms, as she has noticed increased pain with stressful situations (i.e. people arguing, dogs barking, etc). Prior Treatments and Tests PT bilateral FAUZIA as above PT-OP-C Subjective Start: 04/01/23 14:20 Freq: Status: Active Protocol: Document 05/15/23 08:06 NM (Rec: 05/15/23 16:21 NM [id number]) OP-PT Subjective Patient Comments Patient Comments Pt presents to clinic today using straight cane for stability. Pt reports that she is very tired today, and she needs to use the cane today because her L hip is giving her difficulty whenever she tries to stand up. Current pain is 3/10. She reports compliance with her HEP, but she is frustrated today because she doesn't feel like she is making very much progress toward her personal goals (e.g. being able to put on her shoes in hip ER while sitting or being able to stand up wihtout difficulty). Per pt, her hip precautions were removed at 6 weeks post op ( about 2 weeks ago). PT-OP-G Mobility & Gait Start: 04/01/23 14:20 Freq: Status: Active Protocol: Document 04/01/23 14:32 AB (Rec: 04/01/23 17:38 AB [id number]) OP Gait Assessment Assistive Devices Assistive Device 4 Wheeled Walker Gait Deviations General Gait Pattern Antalgic,Decreased Stride Length,Decreased Feet Clearance,Flexed Trunk Factors Limiting Gait Function Factors Limiting Gait Function Decreased Strength,Limited Range of Motion,Pain Comments Gait Comments Pt's gait mechanics improved by adjusting heigt of 4WW. She was educated on heel-to-toe gait pattern to normalize mechanics. PT-OP-J Posture/Palpation/Skin Start: 04/01/23 14:20 Freq: Status: Active Protocol: Document 04/01/23 17:38 AB (Rec: 04/01/23 17:40 AB [id number]) Skin Assessment Incisional Assessment Incision Appearance/Comments left posterior FAUZIA incision appears well healed without abnormal swelling or redness PT-OP-K Range of Motion Start: 04/01/23 14:20 Freq: Status: Active Protocol: Document 05/15/23 08:06 NM (Rec: 05/15/23 16:21 NM [id number]) Hip Goniometric Range of Motion Hip Measured in Degrees Left Active Testing Position supine, sitting Flexion w/Knee Flexed 105 Extension 0 Abduction 20 Internal Rotation 20 External Rotation 15 Comments no pain but difficult to perform Right Active Testing Position supine, sitting Flexion w/Knee Flexed 120 Extension 0 Abduction 20 Internal Rotation 25 External Rotation 20 PT-OP-M Strength Start: 04/01/23 14:20 Freq: Status: Active Protocol: Document 05/15/23 08:06 NM (Rec: 05/15/23 16:21 NM [id number]) Hip Strength Hip Manual Muscle Testing Right Flexion (L2) 4- Good- Extension (S1) 3+ Fair+ Abduction 4 Good Adduction 3+ Fair+ External Rotation 4- Good- Internal Rotation 4- Good- Left Flexion (L2) 4- Good- Extension (S1) 3+ Fair+ Abduction 3+ Fair+ Adduction 3+ Fair+ External Rotation 3+ Fair+ Internal Rotation 3+ Fair+ Comments Only reports mild discomfort with resisted hip flex, no pain with any of the other resisted motions. Knee Strength Knee Manual Muscle Testing Right Flexion (S2) 4 Good Extension (L3) 4- Good- Left Flexion (S2) 4- Good- Extension (L3) 4- Good- PT-OP-T Assessment and Plan Start: 04/01/23 14:20 Freq: Status: Active Protocol: Document 05/15/23 08:06 NM (Rec: 05/15/23 16:21 NM [id number]) Physical Therapy Assessment Rehab Potential Rehabilitation Potential Fair Evaluation Complexity Number of Personal Factors/Comorbidities 3 or More Number of Body Systems Impaired 1-2 Clinical Presentation at Evaluation Stable Impairments Impairments Activity Tolerance,Balance, Functional Activities, Functional Mobility,Gait,Pain, ROM,Soft Tissue Mobility, Strength Goals Eight Impairment Gait Short Term Goal (STG) Pt to walk household distances independently/mod independent with LRAD to show improving gait and tolerance to activity to return to PLOF. STG Duration 4 Halfway Goal (LTG) Pt to walk community distances independently/mod independent with LRAD to show improving gait and tolerance to activity to return to PLOF. 05/15: Able to ambulate up to 170 ft (up to 1 block) independently with LRAD before requiring rest -- progressing toward goal LTG Duration 8 Seven Impairment Hip AROM Short Term Goal (STG) Pt's bilateral hip ER to improve to 20 or better to show improving AROM to perform functional activities. STG Duration 4 Trim Crew Supervisor Goal (LTG) Pt's bilateral hip ER to improve to 25 or better to show improving AROM to perform functional activities. 05/15: L hip ER 15 deg, R hip ER 20 deg --progressing toward goal LTG Duration 8 Six Impairment Hip AROM Short Term Goal (STG) Pt's bilateral hip IR to improve to 30 or better to show improving AROM to perform functional activities. STG Duration 4 Trim Crew Supervisor Goal (LTG) Pt's bilateral hip IR to improve to 35 or better to show improving AROM to perform functional activities. 05/15: L hip IR 25 deg, R hip IR 25 -- progressing toward goal LTG Duration 8 Five Impairment Hip AROM Short Term Goal (STG) Pt's bilateral hip ABD to improve to 25 or better to show improving AROM to perform functional activities. STG Duration 4 Halfway Goal (LTG) Pt's bilateral hip abd to improve to 30 or better to show improving AROM to perform functional activities. 05/15: L hip 20deg, R hip 20 deg - progressing toward goal LTG Duration 8 Four Impairment Hip AROM Short Term Goal (STG) Pt's bilateral hip flexion to improve to 105 or better to show improving AROM to perform functional activities. STG Duration 4 Halfway Goal (LTG) Pt's bilateral hip flexion to improve to 115 or better to show improving AROM to perform functional activities. 05/15: L Hip flex 105 deg, R hip 110 deg - progressing toward goal LTG Duration 8 Three Impairment Pain Short Term Goal (STG) Pt to report bilateral hip pain of 5/10 or better with activity to show resolving pain symptoms. STG Duration 4 Halfway Goal (LTG) Pt to report bilateral hip pain of 2/10 or better with activity to show resolving pain symptoms. 05/15: 3/10 pain with activity - progressing toward goal LTG Duration 8 Two Impairment MMT Short Term Goal (STG) Pt's gross BLE MMT scores to improve to 4-/5 or better to show improving strength to improve ability to perform functional activities. STG Duration 4 Trim Crew Supervisor Goal (LTG) Pt's gross BLE MMT scores to improve to 4+/10 or better to show improving strength to improve ability to perform functional activities. 05/15: R hip gross MMT 4-/5 ( abd 4/5, add 3+/5), L hip gross MMT 3+/5 (flex 4-/5) -- Progressing toward goal LTG Duration 8 One Impairment Patient Questionnaire Short Term Goal (STG) Pt's LEFS score to improve to 25/80 or better to show improving subjective report of symptoms for an improved QOL. Trim Crew Supervisor Goal (LTG) Pt's LEFS score to improve to 45/80 or better to show improving subjective report of symptoms for an improved QOL. 05/15: LEFS 16/80 -- Progressing toward goal LTG Duration 8 Progress Towards Goals Progress Towards Goals Slow Progress due to Activity Tolerance,Slow Progress due to Attendance Issues Progress Comments Pt primarily has limited activity tolerance Assessment Summary Assessment Pt is a 77 y.o. female s/p L FAUZIA, now about 7 weeks out. Pt is slowly progressing toward functional goals. She is able to ambulate about 170 ft consistently without an AD before requiring rest due to decreased endurance and increased pain. She is ambulating independently without an AD on stable, flat surfaces but does occasionally still use a can for balance on uneven surfaces or if she is tired. Gait is still mildly antalgic with mild sway and decreased step length; pt would benefit from further training to promote normal gait and to decrease fall risk . Currently, she is most limited by decreased B hip ROM and B hip strength. Pt's B global hip AROM prevents her from being able to perform functional ADLs. Her global L hip MMT scores are 3+/5, while her R hip MMT is avg 4/5. Pt did improve in LEFS score indicating better functional mobility and pain management; however, she is still not back to levels of activity similar to PLOF. Pt would benefit from continued skilled PT to address impairments in gait, endurance, balance, BLE strength and ROM, and pain management in order to improve overall quality of life, activity tolerance, and to return to PLOF. Physical Therapy Plan Frequency and Duration Frequency of Treatment 2x/Week Duration of treatment (weeks) 8 Plan of Care Start Date 04/01/23 Plan of Care End Date 07/17/23 Therapeutic Interventions Therapeutic Interventions Balance Training,Gait Training ,Home Exercise Program,Joint Mobilizations,Manual Therapy, Neuromuscular Re-education, Patient/Caregiver Education, Self-Care/Home Management,Soft Tissue Mobilization,Taping, Therapeutic Activities, Therapeutic Exercises Modalities Cold Pack/Ice Massage,Electric Stimulation,Hot Packs Next Visit Focus/Plan Next Note Type Treatment Note Next Visit Plan Add hip stretching (piriformis , Fig 4), Review supine/side for hip abd&core strengthening carryover stability gait. Incorporate standing at rail L knee on stool hip IR/ ER slow gentle AROM. Continue with BLE strengthen. Emphasize gait .
--- NOTE | 2023-05-20 14:30 | PT.OTN ---
Current Diagnoses Unilateral primary osteoarthritis, left hip (05/20/23) Physical Therapy Treatment Note PT-OP-A Visit Information Start: 04/01/23 14:20 Freq: Status: Active Protocol: Document 05/20/23 13:50 SP (Rec: 05/20/23 14:33 SP [id number]) Out-Patient Physical Therapy Visit Information Visit Information Visit Type Treatment Note Visit Note 08/15 after PN Visit Start Time 13:50 Visit Stop Time 14:30 Total Visit Minutes 40 Visit Number 11 Number of PADDOCK JUDGE Visits 2 Evaluation Information Evaluation Date 04/01/23 PT-OP-B Current Condition Start: 04/01/23 14:20 Freq: Status: Active Protocol: Document 05/15/23 16:00 NM (Rec: 05/15/23 16:21 NM [id number]) Current Condition History of Current Condition Onset Date 3 weeks ago Current Complaints left hip pain History of Current Condition Pt reports she had R FAUZIA ( posterior) in October and L FAUZIA (posterior) 3 weeks ago, but has significant pain in left hip and left knee. She is able to ascend/descend 5 steps with 2 SPC, she report she can walk 50 ft with 4WW before onset of pain. At times her pain refers to her hip, and sometimes down her left leg. She also reports feeling that the stress in her personal life may also be contributing to her symptoms, as she has noticed increased pain with stressful situations (i.e. people arguing, dogs barking, etc). Prior Treatments and Tests PT bilateral FAUZIA as above PT-OP-C Subjective Start: 04/01/23 14:20 Freq: Status: Active Protocol: Document 05/20/23 13:50 SP (Rec: 05/20/23 14:33 SP [id number]) OP-PT Subjective Patient Comments Patient Comments Pt report was tired after last tx and dr increased her thyroid med from 100 to 125 mg but concerned so decreased to 112 mg. She reports doesn't have any percautions now. PT-OP-G Mobility & Gait Start: 04/01/23 14:20 Freq: Status: Active Protocol: Document 04/01/23 14:32 AB (Rec: 04/01/23 17:38 AB [id number]) OP Gait Assessment Assistive Devices Assistive Device 4 Wheeled Walker Gait Deviations General Gait Pattern Antalgic,Decreased Stride Length,Decreased Feet Clearance,Flexed Trunk Factors Limiting Gait Function Factors Limiting Gait Function Decreased Strength,Limited Range of Motion,Pain Comments Gait Comments Pt's gait mechanics improved by adjusting heigt of 4WW. She was educated on heel-to-toe gait pattern to normalize mechanics. PT-OP-J Posture/Palpation/Skin Start: 04/01/23 14:20 Freq: Status: Active Protocol: Document 04/01/23 17:38 AB (Rec: 04/01/23 17:40 AB [id number]) Skin Assessment Incisional Assessment Incision Appearance/Comments left posterior FAUZIA incision appears well healed without abnormal swelling or redness PT-OP-K Range of Motion Start: 04/01/23 14:20 Freq: Status: Active Protocol: Document 05/15/23 16:00 NM (Rec: 05/15/23 16:21 NM [id number]) Hip Goniometric Range of Motion Hip Left Active Testing Position supine, sitting Flexion w/Knee Flexed 105 Extension 0 Abduction 20 Internal Rotation 20 External Rotation 15 Comments no pain but difficult to perform Right Active Testing Position supine, sitting Flexion w/Knee Flexed 120 Extension 0 Abduction 20 Internal Rotation 25 External Rotation 20 PT-OP-M Strength Start: 04/01/23 14:20 Freq: Status: Active Protocol: Document 05/15/23 16:00 NM (Rec: 05/15/23 16:21 NM [id number]) Hip Strength Hip Manual Muscle Testing Right Flexion (L2) 4- Good- Extension (S1) 3+ Fair+ Abduction 4 Good Adduction 3+ Fair+ External Rotation 4- Good- Internal Rotation 4- Good- Left Flexion (L2) 4- Good- Extension (S1) 3+ Fair+ Abduction 3+ Fair+ Adduction 3+ Fair+ External Rotation 3+ Fair+ Internal Rotation 3+ Fair+ Comments Only reports mild discomfort with resisted hip flex, no pain with any of the other resisted motions. Knee Strength Knee Manual Muscle Testing Right Flexion (S2) 4 Good Extension (L3) 4- Good- Left Flexion (S2) 4- Good- Extension (L3) 4- Good- PT-OP-Q Treatments Start: 04/01/23 14:20 Freq: Status: Active Protocol: Document 05/20/23 13:50 SP (Rec: 05/20/23 14:33 SP [id number]) Therapeutic Exercises Prone Exercises hip IR/ER Prone Exercise Name added to HEP Side left Sitting Exercises sit<> stands Reps/Minutes 5x STS- not timed Comments arms fwd, momentum asd, hip hinge asc/desc Standing Exercises Hip IR/ER AROM Side left Equipment Used stool, ballerina bars for stability Reps/Minutes x10, 5 SH little further Comments tolerated well Gait Training Gait Activity stairs Description outside Device Used no HRs used Level of Assistance SBA Distance/Duration 7 stairs Treatment Focus receiprocal stepping, eccentric control descend, stabiltiy Comments pt improved eccentric descend post cues for slower step down . uneven outdoor Description grass, incline/decline sidewalk behind MAP bldg Device Used carrying SPC (not needed) Level of Assistance close SBA (GB on for safety if needed assist) Surface cement side walk, grass incline/decline/angled Distance/Duration 500 ft+ Treatment Focus stability over uneven surfaces , increase stride Comments cued tall posturing, core, increase KYE, improved with distance. PT-OP-R Modalities Start: 04/01/23 14:20 Freq: Status: Active Protocol: Document 05/04/23 08:58 SP (Rec: 05/04/23 09:07 SP [id number]) Electric Stimulation Electric Stimulation Interferential Current (IFC) Body Location L hip Duration (Minutes) 8 Intensity 32 Combined With Heat/Cold Hot Pack PT-OP-T Assessment and Plan Start: 04/01/23 14:20 Freq: Status: Active Protocol: Document 05/20/23 13:50 SP (Rec: 05/20/23 14:33 SP [id number]) Physical Therapy Assessment Goals Eight Impairment Gait Short Term Goal (STG) Pt to walk household distances independently/mod independent with LRAD to show improving gait and tolerance to activity to return to PLOF. STG Duration 4 Die Repairer Forging Goal (LTG) Pt to walk community distances independently/mod independent with LRAD to show improving gait and tolerance to activity to return to PLOF. 1110: Able to ambulate up to 170 ft (up to 1 block) independently with LRAD before requiring rest -- progressing toward goal LTG Duration 8 Seven Impairment Hip AROM Short Term Goal (STG) Pt's bilateral hip ER to improve to 20 or better to show improving AROM to perform functional activities. STG Duration 4 Half-Way Goal (LTG) Pt's bilateral hip ER to improve to 25 or better to show improving AROM to perform functional activities. 1110: L hip ER 15 deg, R hip ER 20 deg --progressing toward goal LTG Duration 8 Six Impairment Hip AROM Short Term Goal (STG) Pt's bilateral hip IR to improve to 30 or better to show improving AROM to perform functional activities. STG Duration 4 Die Repairer Forging Goal (LTG) Pt's bilateral hip IR to improve to 35 or better to show improving AROM to perform functional activities. 05/15: L hip IR 25 deg, R hip IR 25 -- progressing toward goal LTG Duration 8 Five Impairment Hip AROM Short Term Goal (STG) Pt's bilateral hip ABD to improve to 25 or better to show improving AROM to perform functional activities. STG Duration 4 Half-Way Goal (LTG) Pt's bilateral hip abd to improve to 30 or better to show improving AROM to perform functional activities. 05/15: L hip 20deg, R hip 20 deg - progressing toward goal LTG Duration 8 Four Impairment Hip AROM Short Term Goal (STG) Pt's bilateral hip flexion to improve to 105 or better to show improving AROM to perform functional activities. STG Duration 4 Die Repairer Forging Goal (LTG) Pt's bilateral hip flexion to improve to 115 or better to show improving AROM to perform functional activities. 05/15: L Hip flex 105 deg, R hip 110 deg - progressing toward goal LTG Duration 8 Three Impairment Pain Short Term Goal (STG) Pt to report bilateral hip pain of 5/10 or better with activity to show resolving pain symptoms. STG Duration 4 Die Repairer Forging Goal (LTG) Pt to report bilateral hip pain of 2/10 or better with activity to show resolving pain symptoms. 05/15: 3/10 pain with activity - progressing toward goal LTG Duration 8 Two Impairment MMT Short Term Goal (STG) Pt's gross BLE MMT scores to improve to 4-/5 or better to show improving strength to improve ability to perform functional activities. STG Duration 4 Die Repairer Forging Goal (LTG) Pt's gross BLE MMT scores to improve to 4+/10 or better to show improving strength to improve ability to perform functional activities. 05/15: R hip gross MMT 4-/5 ( abd 4/5, add 3+/5), L hip gross MMT 3+/5 (flex 4-/5) -- Progressing toward goal LTG Duration 8 One Impairment Patient Questionnaire Short Term Goal (STG) Pt's LEFS score to improve to 25/80 or better to show improving subjective report of symptoms for an improved QOL. Die Repairer Forging Goal (LTG) Pt's LEFS score to improve to 45/80 or better to show improving subjective report of symptoms for an improved QOL. 05/15: LEFS 16/80 -- Progressing toward goal LTG Duration 8 Assessment Summary Assessment Pt improved stability over uneven outdoor grass with cues for increase KYE, slower pacing, she was able complete incline/decline sidewalk without use of SPC need use of SPC. Pt responded well to added prone hip IR/ER standing and added prone for HEP. Physical Therapy Plan Frequency and Duration Frequency of Treatment 2x/Week Duration of treatment (weeks) 8 Plan of Care Start Date 04/01/23 Plan of Care End Date 07/17/23 Therapeutic Interventions Therapeutic Interventions Balance Training,Gait Training ,Home Exercise Program,Joint Mobilizations,Manual Therapy, Neuromuscular Re-education, Patient/Caregiver Education, Self-Care/Home Management,Soft Tissue Mobilization,Taping, Therapeutic Activities, Therapeutic Exercises Modalities Cold Pack/Ice Massage,Electric Stimulation,Hot Packs Next Visit Focus/Plan Next Note Type Treatment Note Next Visit Plan Review prone hip IR/ER AROM. Add hip stretching (piriformis , Fig 4), Review supine/side for hip abd&core strengthening carryover stability gait. Incorporate standing at rail L knee on stool hip IR/ ER slow gentle AROM. Continue with BLE strengthen. Emphasize gait .
--- NOTE | 2023-05-25 11:00 | PT.OTN ---
Current Diagnoses Unilateral primary osteoarthritis, left hip (05/25/23) Physical Therapy Treatment Note PT-OP-A Visit Information Start: 04/01/23 14:20 Freq: Status: Active Protocol: Document 05/25/23 09:51 NM (Rec: 05/25/23 10:59 NM [id number]) Out-Patient Physical Therapy Visit Information Visit Information Visit Type Treatment Note Visit Note 09/12 after PN Visit Start Time 09:45 Visit Stop Time 10:30 Total Visit Minutes 45 Visit Number 12 PT-OP-B Current Condition Start: 04/01/23 14:20 Freq: Status: Active Protocol: Document 05/15/23 16:00 NM (Rec: 05/15/23 16:21 NM [id number]) Current Condition History of Current Condition Onset Date 3 weeks ago Current Complaints left hip pain History of Current Condition Pt reports she had R FAUZIA ( posterior) in October and L FAUZIA (posterior) 3 weeks ago, but has significant pain in left hip and left knee. She is able to ascend/descend 5 steps with 2 SPC, she report she can walk 50 ft with 4WW before onset of pain. At times her pain refers to her hip, and sometimes down her left leg. She also reports feeling that the stress in her personal life may also be contributing to her symptoms, as she has noticed increased pain with stressful situations (i.e. people arguing, dogs barking, etc). Prior Treatments and Tests PT bilateral FAUZIA as above PT-OP-C Subjective Start: 04/01/23 14:20 Freq: Status: Active Protocol: Document 05/25/23 09:51 NM (Rec: 05/25/23 10:59 NM [id number]) OP-PT Subjective Patient Comments Patient Comments Pt reports that she is tired and her hips are sore, but she is not in any pain. She [place] go [place] the [place] for [place] and is going to buy trekking poles. PT-OP-G Mobility & Gait Start: 04/01/23 14:20 Freq: Status: Active Protocol: Document 04/01/23 14:32 AB (Rec: 04/01/23 17:38 AB [id number]) OP Gait Assessment Assistive Devices Assistive Device 4 Wheeled Walker Gait Deviations General Gait Pattern Antalgic,Decreased Stride Length,Decreased Feet Clearance,Flexed Trunk Factors Limiting Gait Function Factors Limiting Gait Function Decreased Strength,Limited Range of Motion,Pain Comments Gait Comments Pt's gait mechanics improved by adjusting heigt of 4WW. She was educated on heel-to-toe gait pattern to normalize mechanics. PT-OP-J Posture/Palpation/Skin Start: 04/01/23 14:20 Freq: Status: Active Protocol: Document 04/01/23 17:38 AB (Rec: 04/01/23 17:40 AB [id number]) Skin Assessment Incisional Assessment Incision Appearance/Comments left posterior FAUZIA incision appears well healed without abnormal swelling or redness PT-OP-K Range of Motion Start: 04/01/23 14:20 Freq: Status: Active Protocol: Document 05/15/23 16:00 NM (Rec: 05/15/23 16:21 NM [id number]) Hip Goniometric Range of Motion Hip Left Active Testing Position supine, sitting Flexion w/Knee Flexed 105 Extension 0 Abduction 20 Internal Rotation 20 External Rotation 15 Comments no pain but difficult to perform Right Active Testing Position supine, sitting Flexion w/Knee Flexed 120 Extension 0 Abduction 20 Internal Rotation 25 External Rotation 20 PT-OP-M Strength Start: 04/01/23 14:20 Freq: Status: Active Protocol: Document 05/15/23 16:00 NM (Rec: 05/15/23 16:21 NM [id number]) Hip Strength Hip Manual Muscle Testing Right Flexion (L2) 4- Good- Extension (S1) 3+ Fair+ Abduction 4 Good Adduction 3+ Fair+ External Rotation 4- Good- Internal Rotation 4- Good- Left Flexion (L2) 4- Good- Extension (S1) 3+ Fair+ Abduction 3+ Fair+ Adduction 3+ Fair+ External Rotation 3+ Fair+ Internal Rotation 3+ Fair+ Comments Only reports mild discomfort with resisted hip flex, no pain with any of the other resisted motions. Knee Strength Knee Manual Muscle Testing Right Flexion (S2) 4 Good Extension (L3) 4- Good- Left Flexion (S2) 4- Good- Extension (L3) 4- Good- PT-OP-Q Treatments Start: 04/01/23 14:20 Freq: Status: Active Protocol: Document 05/25/23 09:51 NM (Rec: 05/25/23 10:59 NM [id number]) Cardio Equipment Recumbent Stepper (Sci-Fit) Duration (Minutes) 6 Resistance 1 Seat Position 3 min Other LE only, for reciprocal motion /warm up Therapeutic Exercises Supine Exercises Figure 4 stretch Supine Exercise Name for hip ER ROM Side bilateral Reps/Minutes 2x30 Comments greater ROM LLE than RLE willian stretch Reps/Minutes 2x30 Prone Exercises hip IR/ER Side bilateral Resistance lvl 3 tb around ankles Reps/Minutes 2x10 Comments fatiguing Sitting Exercises sit<> stands Reps/Minutes 8x STS Comments arm fwd, no momentum; cues for eccentric control, no knee valgus Standing Exercises step ups Standing Exercise Name 1. ascend/descend reciprocally , 2. LLE leading Equipment Used 1. 6 steps no BEAUTY CULTURE TEACHER on rails, 2 . 8 steps no BEAUTY CULTURE TEACHER Reps/Minutes 1. 3 sets, 2. x5 Comments cue TKE, glute & core activation; pt attempt to use momentum hip ext Side bilateral Resistance green tb levl 3 Equipment Used table for UE support Reps/Minutes 2x10 hip abd Side bilateral Resistance green tb lvl 3 Equipment Used table for UE support Reps/Minutes 2x8 ft Comments cues for hip/knee/toe neutral alignment Gait Training Gait Activity uneven outdoor Description grass, incline/decline sidewalk behind MAP bldg Level of Assistance close SBA (GB on for safety) Surface cement side walk, grass incline/decline/angled Distance/Duration >500 ft Treatment Focus stability over uneven surfaces , increase stride Comments Cued foot clearance, looking ahead/tall posturing, core, increase KYE, improved with distance. PT-OP-R Modalities Start: 04/01/23 14:20 Freq: Status: Active Protocol: Document 05/04/23 08:58 SP (Rec: 05/04/23 09:07 SP [id number]) Electric Stimulation Electric Stimulation Interferential Current (IFC) Body Location L hip Duration (Minutes) 8 Intensity 32 Combined With Heat/Cold Hot Pack PT-OP-T Assessment and Plan Start: 04/01/23 14:20 Freq: Status: Active Protocol: Document 05/25/23 09:51 NM (Rec: 05/25/23 10:59 NM [id number]) Physical Therapy Assessment Goals Eight Impairment Gait Short Term Goal (STG) Pt to walk household distances independently/mod independent with LRAD to show improving gait and tolerance to activity to return to PLOF. STG Duration 4 Grocery Store Courtesy Clerk Goal (LTG) Pt to walk community distances independently/mod independent with LRAD to show improving gait and tolerance to activity to return to PLOF. 05/15: Able to ambulate up to 170 ft (up to 1 block) independently with LRAD before requiring rest -- progressing toward goal LTG Duration 8 Seven Impairment Hip AROM Short Term Goal (STG) Pt's bilateral hip ER to improve to 20 or better to show improving AROM to perform functional activities. STG Duration 4 Grocery Store Courtesy Clerk Goal (LTG) Pt's bilateral hip ER to improve to 25 or better to show improving AROM to perform functional activities. 05/15: L hip ER 15 deg, R hip ER 20 deg --progressing toward goal LTG Duration 8 Six Impairment Hip AROM Short Term Goal (STG) Pt's bilateral hip IR to improve to 30 or better to show improving AROM to perform functional activities. STG Duration 4 [facility] Goal (LTG) Pt's bilateral hip IR to improve to 35 or better to show improving AROM to perform functional activities. 05/15: L hip IR 25 deg, R hip IR 25 -- progressing toward goal LTG Duration 8 Five Impairment Hip AROM Short Term Goal (STG) Pt's bilateral hip ABD to improve to 25 or better to show improving AROM to perform functional activities. STG Duration 4 [facility]iary Goal (LTG) Pt's bilateral hip abd to improve to 30 or better to show improving AROM to perform functional activities. 05/15: L hip 20deg, R hip 20 deg - progressing toward goal LTG Duration 8 Four Impairment Hip AROM Short Term Goal (STG) Pt's bilateral hip flexion to improve to 105 or better to show improving AROM to perform functional activities. STG Duration 4 [facility] Goal (LTG) Pt's bilateral hip flexion to improve to 115 or better to show improving AROM to perform functional activities. 05/15: L Hip flex 105 deg, R hip 110 deg - progressing toward goal LTG Duration 8 Three Impairment Pain Short Term Goal (STG) Pt to report bilateral hip pain of 5/10 or better with activity to show resolving pain symptoms. STG Duration 4 Grocery Store Courtesy Clerk Goal (LTG) Pt to report bilateral hip pain of 2/10 or better with activity to show resolving pain symptoms. 05/15: 3/10 pain with activity - progressing toward goal LTG Duration 8 Two Impairment MMT Short Term Goal (STG) Pt's gross BLE MMT scores to improve to 4-/5 or better to show improving strength to improve ability to perform functional activities. STG Duration 4 Grocery Store Courtesy Clerk Goal (LTG) Pt's gross BLE MMT scores to improve to 4+/10 or better to show improving strength to improve ability to perform functional activities. 05/15: R hip gross MMT 4-/5 ( abd 4/5, add 3+/5), L hip gross MMT 3+/5 (flex 4-/5) -- Progressing toward goal LTG Duration 8 One Impairment Patient Questionnaire Short Term Goal (STG) Pt's LEFS score to improve to 25/80 or better to show improving subjective report of symptoms for an improved QOL. Penitentiary Goal (LTG) Pt's LEFS score to improve to 45/80 or better to show improving subjective report of symptoms for an improved QOL. 05/15: LEFS 16/80 -- Progressing toward goal LTG Duration 8 Assessment Summary Assessment Pt tolerated treatment fair and continues to get fatigued easily. Continued with ambulation outside on uneven surfaces for stability without AD use. Pt cued for upright posture/looking ahead, foot clearance for safety, pacing for stability. Pt demos fair quad facilitation and glute activation during STS and step ups (6, 8 step); however, she attempts to compensate for strength deficits with momentum and has to be consistently encouraged/cued to complete the activities correctly. She is able to ascend/descend stairs for multiple sets with LLE leading and no BEAUTY CULTURE TEACHER, but would benefit from further hip ABD/quad/ glute strengthening. Overall, pt is self-limiting due to fear of falling and due to tolerance for activity/exercise. Pt is a good candidate for skilled PT to address deficits in global hip strength, ROM, activity tolerance, and gait to decrease fall risk and to return to PLOF. Physical Therapy Plan Frequency and Duration Frequency of Treatment 2x/Week Duration of treatment (weeks) 8 Plan of Care Start Date 04/01/23 Plan of Care End Date 07/17/23 Therapeutic Interventions Therapeutic Interventions Balance Training,Gait Training ,Home Exercise Program,Joint Mobilizations,Manual Therapy, Neuromuscular Re-education, Patient/Caregiver Education, Self-Care/Home Management,Soft Tissue Mobilization,Taping, Therapeutic Activities, Therapeutic Exercises Modalities Cold Pack/Ice Massage,Electric Stimulation,Hot Packs Next Visit Focus/Plan Next Note Type Treatment Note Next Visit Plan Continue and progress hip stretching (figure 4, IR, hip ext) to improve ROM. Focus on BLE hip abd/glut/quad strengthening april during step ups, gait.
--- NOTE | 2023-06-10 09:45 | PT.OTN ---
Current Diagnoses Unilateral primary osteoarthritis, left hip (06/10/23) Physical Therapy Treatment Note PT-OP-A Visit Information Start: 04/01/23 14:20 Freq: Status: Active Protocol: Document 06/10/23 09:06 SP (Rec: 06/10/23 09:51 SP [id number]) Out-Patient Physical Therapy Visit Information Visit Information Visit Type Treatment Note Visit Note 10/13 after PN Visit Start Time 09:06 Visit Stop Time 09:45 Total Visit Minutes 39 Visit Number 13 Number of SIGNAL AND COMMUNICATIONS MAINTAINER Visits 1 Evaluation Information Evaluation Date 04/01/23 PT-OP-B Current Condition Start: 04/01/23 14:20 Freq: Status: Active Protocol: Document 05/15/23 16:00 NM (Rec: 05/15/23 16:21 NM [id number]) Current Condition History of Current Condition Onset Date 3 weeks ago Current Complaints left hip pain History of Current Condition Pt reports she had R FAUZIA ( posterior) in October and L FAUZIA (posterior) 3 weeks ago, but has significant pain in left hip and left knee. She is able to ascend/descend 5 steps with 2 SPC, she report she can walk 50 ft with 4WW before onset of pain. At times her pain refers to her hip, and sometimes down her left leg. She also reports feeling that the stress in her personal life may also be contributing to her symptoms, as she has noticed increased pain with stressful situations (i.e. people arguing, dogs barking, etc). Prior Treatments and Tests PT bilateral FAUZIA as above PT-OP-C Subjective Start: 04/01/23 14:20 Freq: Status: Active Protocol: Document 06/10/23 09:06 SP (Rec: 06/10/23 09:51 SP [id number]) OP-PT Subjective Patient Comments Patient Comments Pt reports has been sick since not getting around as much, so got really weak getting out of bed and dizziness. Was able walk 4 blocks and had tingling down B anterlateral thighs. PT-OP-G Mobility & Gait Start: 04/01/23 14:20 Freq: Status: Active Protocol: Document 04/01/23 14:32 AB (Rec: 04/01/23 17:38 AB [id number]) OP Gait Assessment Assistive Devices Assistive Device 4 Wheeled Walker Gait Deviations General Gait Pattern Antalgic,Decreased Stride Length,Decreased Feet Clearance,Flexed Trunk Factors Limiting Gait Function Factors Limiting Gait Function Decreased Strength,Limited Range of Motion,Pain Comments Gait Comments Pt's gait mechanics improved by adjusting heigt of 4WW. She was educated on heel-to-toe gait pattern to normalize mechanics. PT-OP-J Posture/Palpation/Skin Start: 04/01/23 14:20 Freq: Status: Active Protocol: Document 04/01/23 17:38 AB (Rec: 04/01/23 17:40 AB [id number]) Skin Assessment Incisional Assessment Incision Appearance/Comments left posterior FAUZIA incision appears well healed without abnormal swelling or redness PT-OP-K Range of Motion Start: 04/01/23 14:20 Freq: Status: Active Protocol: Document 05/15/23 16:00 NM (Rec: 05/15/23 16:21 NM [id number]) Hip Goniometric Range of Motion Hip Left Active Testing Position supine, sitting Flexion w/Knee Flexed 105 Extension 0 Abduction 20 Internal Rotation 20 External Rotation 15 Comments no pain but difficult to perform Right Active Testing Position supine, sitting Flexion w/Knee Flexed 120 Extension 0 Abduction 20 Internal Rotation 25 External Rotation 20 PT-OP-M Strength Start: 04/01/23 14:20 Freq: Status: Active Protocol: Document 05/15/23 16:00 NM (Rec: 05/15/23 16:21 NM [id number]) Hip Strength Hip Manual Muscle Testing Right Flexion (L2) 4- Good- Extension (S1) 3+ Fair+ Abduction 4 Good Adduction 3+ Fair+ External Rotation 4- Good- Internal Rotation 4- Good- Left Flexion (L2) 4- Good- Extension (S1) 3+ Fair+ Abduction 3+ Fair+ Adduction 3+ Fair+ External Rotation 3+ Fair+ Internal Rotation 3+ Fair+ Comments Only reports mild discomfort with resisted hip flex, no pain with any of the other resisted motions. Knee Strength Knee Manual Muscle Testing Right Flexion (S2) 4 Good Extension (L3) 4- Good- Left Flexion (S2) 4- Good- Extension (L3) 4- Good- PT-OP-Q Treatments Start: 04/01/23 14:20 Freq: Status: Active Protocol: Document 06/10/23 09:06 SP (Rec: 06/10/23 09:51 SP [id number]) Therapeutic Exercises Supine Exercises Figure 4 stretch Supine Exercise Name for hip ER ROM Side bilateral Reps/Minutes 2x60 Comments greater ROM LLE than RLE willian stretch Reps/Minutes 60 x2 L, 60 x1 R Comments improved range post manual- ed upper body angled away EOB bridge Supine Exercise Name reviewed stated past HEP still doing at home Resistance AROM Reps/Minutes x10 Comments cued knees //with feet, good form Prone Exercises hip IR/ER Prone Exercise Name IR only Side bilateral Resistance Lvl #2 aqua around ankles Reps/Minutes 2x10 Comments fatiguing Manual Therapy Treatment Soft Tissue Mobilization L hip Body Location B quad, ITB, TFL Mobilization Type Strumming,Sustained Pressure, Other Intensity/Depth Moderate Body Position Supine Comments manual STMs, improved willian stretch, ed use rolling pin home seated PT-OP-R Modalities Start: 04/01/23 14:20 Freq: Status: Active Protocol: Document 05/04/23 08:58 SP (Rec: 05/04/23 09:07 SP [id number]) Electric Stimulation Electric Stimulation Interferential Current (IFC) Body Location L hip Duration (Minutes) 8 Intensity 32 Combined With Heat/Cold Hot Pack PT-OP-T Assessment and Plan Start: 04/01/23 14:20 Freq: Status: Active Protocol: Document 06/10/23 09:06 SP (Rec: 06/10/23 09:51 SP [id number]) Physical Therapy Assessment Goals Eight Impairment Gait Short Term Goal (STG) Pt to walk household distances independently/mod independent with LRAD to show improving gait and tolerance to activity to return to PLOF. STG Duration 4 Probation Agent Goal (LTG) Pt to walk community distances independently/mod independent with LRAD to show improving gait and tolerance to activity to return to PLOF. 10: Able to ambulate up to 170 ft (up to 1 block) independently with LRAD before requiring rest -- progressing toward goal LTG Duration 8 Seven Impairment Hip AROM Short Term Goal (STG) Pt's bilateral hip ER to improve to 20 or better to show improving AROM to perform functional activities. STG Duration 4 Probation Agent Goal (LTG) Pt's bilateral hip ER to improve to 25 or better to show improving AROM to perform functional activities. 1110: L hip ER 15 deg, R hip ER 20 deg --progressing toward goal LTG Duration 8 Six Impairment Hip AROM Short Term Goal (STG) Pt's bilateral hip IR to improve to 30 or better to show improving AROM to perform functional activities. STG Duration 4 Shelter Goal (LTG) Pt's bilateral hip IR to improve to 35 or better to show improving AROM to perform functional activities. 05/15: L hip IR 25 deg, R hip IR 25 -- progressing toward goal LTG Duration 8 Five Impairment Hip AROM Short Term Goal (STG) Pt's bilateral hip ABD to improve to 25 or better to show improving AROM to perform functional activities. STG Duration 4 Shelter Goal (LTG) Pt's bilateral hip abd to improve to 30 or better to show improving AROM to perform functional activities. 05/15: L hip 20deg, R hip 20 deg - progressing toward goal LTG Duration 8 Four Impairment Hip AROM Short Term Goal (STG) Pt's bilateral hip flexion to improve to 105 or better to show improving AROM to perform functional activities. STG Duration 4 Probation Agent Goal (LTG) Pt's bilateral hip flexion to improve to 115 or better to show improving AROM to perform functional activities. 05/15: L Hip flex 105 deg, R hip 110 deg - progressing toward goal LTG Duration 8 Three Impairment Pain Short Term Goal (STG) Pt to report bilateral hip pain of 5/10 or better with activity to show resolving pain symptoms. STG Duration 4 Probation Agent Goal (LTG) Pt to report bilateral hip pain of 2/10 or better with activity to show resolving pain symptoms. 05/15: 3/10 pain with activity - progressing toward goal LTG Duration 8 Two Impairment MMT Short Term Goal (STG) Pt's gross BLE MMT scores to improve to 4-/5 or better to show improving strength to improve ability to perform functional activities. STG Duration 4 Shelter Goal (LTG) Pt's gross BLE MMT scores to improve to 4+/10 or better to show improving strength to improve ability to perform functional activities. 05/15: R hip gross MMT 4-/5 ( abd 4/5, add 3+/5), L hip gross MMT 3+/5 (flex 4-/5) -- Progressing toward goal LTG Duration 8 One Impairment Patient Questionnaire Short Term Goal (STG) Pt's LEFS score to improve to 25/80 or better to show improving subjective report of symptoms for an improved QOL. Probation Agent Goal (LTG) Pt's LEFS score to improve to 45/80 or better to show improving subjective report of symptoms for an improved QOL. 05/15: LEFS 16 -- Progressing toward goal LTG Duration 8 Assessment Summary Assessment Pt good feedback lessening quad tension post manual. Improved hip IR muscle tiring against increased resistance today. Physical Therapy Plan Frequency and Duration Frequency of Treatment 2x/Week Duration of treatment (weeks) 8 Plan of Care Start Date 04/01/23 Plan of Care End Date 07/17/23 Therapeutic Interventions Therapeutic Interventions Balance Training,Gait Training ,Home Exercise Program,Joint Mobilizations,Manual Therapy, Neuromuscular Re-education, Patient/Caregiver Education, Self-Care/Home Management,Soft Tissue Mobilization,Taping, Therapeutic Activities, Therapeutic Exercises Modalities Cold Pack/Ice Massage,Electric Stimulation,Hot Packs Next Visit Focus/Plan Next Note Type Treatment Note Next Visit Plan Next tx: trial reverse clamshell, SLS, lateral step down. POC: Continue and progress hip stretching (figure 4, IR, hip ext) to improve ROM. Focus on BLE hip abd/glut/quad strengthening april during step ups, gait.
--- NOTE | 2023-06-15 09:00 | PT.OTN ---
Current Diagnoses Unilateral primary osteoarthritis, left hip (06/15/23) Physical Therapy Treatment Note PT-OP-A Visit Information Start: 04/01/23 14:20 Freq: Status: Active Protocol: Document 06/15/23 08:22 SP (Rec: 06/15/23 09:03 SP [id number]) Out-Patient Physical Therapy Visit Information Visit Information Visit Type Treatment Note Visit Note 12/13 after PN Visit Start Time 08:22 Visit Stop Time 09:00 Total Visit Minutes 38 Visit Number 15 Number of LAMINATOR Visits 3 PT-OP-B Current Condition Start: 04/01/23 14:20 Freq: Status: Active Protocol: Document 05/15/23 16:00 NM (Rec: 05/15/23 16:21 NM [id number]) Current Condition History of Current Condition Onset Date 3 weeks ago Current Complaints left hip pain History of Current Condition Pt reports she had R FAUZIA ( posterior) in October and L FAUZIA (posterior) 3 weeks ago, but has significant pain in left hip and left knee. She is able to ascend/descend 5 steps with 2 SPC, she report she can walk 50 ft with 4WW before onset of pain. At times her pain refers to her hip, and sometimes down her left leg. She also reports feeling that the stress in her personal life may also be contributing to her symptoms, as she has noticed increased pain with stressful situations (i.e. people arguing, dogs barking, etc). Prior Treatments and Tests PT bilateral FAUZIA as above PT-OP-C Subjective Start: 04/01/23 14:20 Freq: Status: Active Protocol: Document 06/15/23 08:22 SP (Rec: 06/15/23 09:03 SP [id number]) OP-PT Subjective Patient Comments Patient Comments Pt reports the stretches are helpful with less discomfort in her hips, performs in am before waking up but tired end day so hasn't got it in. PT-OP-G Mobility & Gait Start: 04/01/23 14:20 Freq: Status: Active Protocol: Document 04/01/23 14:32 AB (Rec: 04/01/23 17:38 AB [id number]) OP Gait Assessment Assistive Devices Assistive Device 4 Wheeled Walker Gait Deviations General Gait Pattern Antalgic,Decreased Stride Length,Decreased Feet Clearance,Flexed Trunk Factors Limiting Gait Function Factors Limiting Gait Function Decreased Strength,Limited Range of Motion,Pain Comments Gait Comments Pt's gait mechanics improved by adjusting heigt of 4WW. She was educated on heel-to-toe gait pattern to normalize mechanics. PT-OP-J Posture/Palpation/Skin Start: 04/01/23 14:20 Freq: Status: Active Protocol: Document 04/01/23 17:38 AB (Rec: 04/01/23 17:40 AB [id number]) Skin Assessment Incisional Assessment Incision Appearance/Comments left posterior FAUZIA incision appears well healed without abnormal swelling or redness PT-OP-K Range of Motion Start: 04/01/23 14:20 Freq: Status: Active Protocol: Document 05/15/23 16:00 NM (Rec: 05/15/23 16:21 NM [id number]) Hip Goniometric Range of Motion Hip Left Active Testing Position supine, sitting Flexion w/Knee Flexed 105 Extension 0 Abduction 20 Internal Rotation 20 External Rotation 15 Comments no pain but difficult to perform Right Active Testing Position supine, sitting Flexion w/Knee Flexed 120 Extension 0 Abduction 20 Internal Rotation 25 External Rotation 20 PT-OP-M Strength Start: 04/01/23 14:20 Freq: Status: Active Protocol: Document 05/15/23 16:00 NM (Rec: 05/15/23 16:21 NM [id number]) Hip Strength Hip Manual Muscle Testing Right Flexion (L2) 4- Good- Extension (S1) 3+ Fair+ Abduction 4 Good Adduction 3+ Fair+ External Rotation 4- Good- Internal Rotation 4- Good- Left Flexion (L2) 4- Good- Extension (S1) 3+ Fair+ Abduction 3+ Fair+ Adduction 3+ Fair+ External Rotation 3+ Fair+ Internal Rotation 3+ Fair+ Comments Only reports mild discomfort with resisted hip flex, no pain with any of the other resisted motions. Knee Strength Knee Manual Muscle Testing Right Flexion (S2) 4 Good Extension (L3) 4- Good- Left Flexion (S2) 4- Good- Extension (L3) 4- Good- PT-OP-Q Treatments Start: 04/01/23 14:20 Freq: Status: Active Protocol: Document 06/15/23 08:22 SP (Rec: 06/15/23 09:03 SP [id number]) Therapeutic Exercises Supine Exercises adductor stretch Supine Exercise Name reviewed self inner thigh stretch Side bilateral Reps/Minutes 10 SH x3 Comments good feedback inner thigh stretch LTR Supine Exercise Name performs as HEP in am Reps/Minutes 3 reps x20SH Comments good LB stretch Figure 4 stretch Supine Exercise Name for hip ER ROM- performs as HEP in am Side bilateral Equipment Used more comfortable foot inner thigh vs over opp LE Reps/Minutes [id number] breach Comments greater ROM LLE than RLE willian stretch Reps/Minutes 60 x2 L, 60 x1 R Comments improved range post manual- ed upper body angled away EOB bridge Supine Exercise Name reviewed stated past HEP still doing at home Resistance AROM Reps/Minutes x10 Comments cued eccentric control Sidelying Exercises hip abd Sidelying Exercise Name added to HEP Side bilateral Reps/Minutes x5 Comments cued stacked alignment, reverse clamshell Sidelying Exercise Name added to HEP Resistance L hip hard than R reported Reps/Minutes 2x10 Comments good hip ER muscle tiring. Standing Exercises band walk Standing Exercise Name added to HEP Side bilateral Resistance Tb #2 mid boone>ankles Reps/Minutes 15 ft x2 laps Comments good hip effort muscle tiring challenge lateral step down Standing Exercise Name added to HEP Side bilateral Equipment Used 6 step, rail mod BUE support Reps/Minutes x5 reps each side Comments R >L hip weakness that feel in hip and knee effort PT-OP-R Modalities Start: 04/01/23 14:20 Freq: Status: Active Protocol: Document 05/04/23 08:58 SP (Rec: 05/04/23 09:07 SP [id number]) Electric Stimulation Electric Stimulation Interferential Current (IFC) Body Location L hip Duration (Minutes) 8 Intensity 32 Combined With Heat/Cold Hot Pack PT-OP-T Assessment and Plan Start: 04/01/23 14:20 Freq: Status: Active Protocol: Document 06/15/23 08:22 SP (Rec: 06/15/23 09:03 SP [id number]) Physical Therapy Assessment Goals Eight Impairment Gait Short Term Goal (STG) Pt to walk household distances independently/mod independent with LRAD to show improving gait and tolerance to activity to return to PLOF. STG Duration 4 Form Tamper Operator Goal (LTG) Pt to walk community distances independently/mod independent with LRAD to show improving gait and tolerance to activity to return to PLOF. 11/10: Able to ambulate up to 170 ft (up to 1 block) independently with LRAD before requiring rest -- progressing toward goal LTG Duration 8 Seven Impairment Hip AROM Short Term Goal (STG) Pt's bilateral hip ER to improve to 20 or better to show improving AROM to perform functional activities. STG Duration 4 Chcf Goal (LTG) Pt's bilateral hip ER to improve to 25 or better to show improving AROM to perform functional activities. 05/15: L hip ER 15 deg, R hip ER 20 deg --progressing toward goal LTG Duration 8 Six Impairment Hip AROM Short Term Goal (STG) Pt's bilateral hip IR to improve to 30 or better to show improving AROM to perform functional activities. STG Duration 4 Chcf Goal (LTG) Pt's bilateral hip IR to improve to 35 or better to show improving AROM to perform functional activities. 05/15: L hip IR 25 deg, R hip IR 25 -- progressing toward goal LTG Duration 8 Five Impairment Hip AROM Short Term Goal (STG) Pt's bilateral hip ABD to improve to 25 or better to show improving AROM to perform functional activities. STG Duration 4 Form Tamper Operator Goal (LTG) Pt's bilateral hip abd to improve to 30 or better to show improving AROM to perform functional activities. 05/15: L hip 20deg, R hip 20 deg - progressing toward goal LTG Duration 8 Four Impairment Hip AROM Short Term Goal (STG) Pt's bilateral hip flexion to improve to 105 or better to show improving AROM to perform functional activities. STG Duration 4 Form Tamper Operator Goal (LTG) Pt's bilateral hip flexion to improve to 115 or better to show improving AROM to perform functional activities. 05/15: L Hip flex 105 deg, R hip 110 deg - progressing toward goal LTG Duration 8 Three Impairment Pain Short Term Goal (STG) Pt to report bilateral hip pain of 5/10 or better with activity to show resolving pain symptoms. STG Duration 4 Form Tamper Operator Goal (LTG) Pt to report bilateral hip pain of 2/10 or better with activity to show resolving pain symptoms. 05/15: 3/10 pain with activity - progressing toward goal LTG Duration 8 Two Impairment MMT Short Term Goal (STG) Pt's gross BLE MMT scores to improve to 4-/5 or better to show improving strength to improve ability to perform functional activities. STG Duration 4 Form Tamper Operator Goal (LTG) Pt's gross BLE MMT scores to improve to 4+/10 or better to show improving strength to improve ability to perform functional activities. 05/15: R hip gross MMT 4-/5 ( abd 4/5, add 3+/5), L hip gross MMT 3+/5 (flex 4-/5) -- Progressing toward goal LTG Duration 8 One Impairment Patient Questionnaire Short Term Goal (STG) Pt's LEFS score to improve to 25/80 or better to show improving subjective report of symptoms for an improved QOL. Chcf Goal (LTG) Pt's LEFS score to improve to 45/80 or better to show improving subjective report of symptoms for an improved QOL. 05/15: LEFS 16/80 -- Progressing toward goal LTG Duration 8 Assessment Summary Assessment Pt reports hip muscle tiring with added hip abductor strengthening to support increased endurance community gait and stability feels is still lacking confidence. Reviewed hip stretching HEP with cues for set up and proper form with reports noticing less pain in hips since last tx. She is compliant with HEP at home. Physical Therapy Plan Frequency and Duration Frequency of Treatment 2x/Week Duration of treatment (weeks) 8 Plan of Care Start Date 04/01/23 Plan of Care End Date 07/17/23 Therapeutic Interventions Therapeutic Interventions Balance Training,Gait Training ,Home Exercise Program,Joint Mobilizations,Manual Therapy, Neuromuscular Re-education, Patient/Caregiver Education, Self-Care/Home Management,Soft Tissue Mobilization,Taping, Therapeutic Activities, Therapeutic Exercises Modalities Cold Pack/Ice Massage,Electric Stimulation,Hot Packs Next Visit Focus/Plan Next Note Type Treatment Note Next Visit Plan HEP review. Next tx: trial resisted hip IR sitting with light TB. POC: Continue and progress hip stretching (figure 4, IR, hip ext) to improve ROM. Focus on BLE hip abd/glut/quad strengthening april during step ups, gait.
--- NOTE | 2023-06-19 12:37 | PT.OTN ---
Current Diagnoses Unilateral primary osteoarthritis, left hip (06/19/23) Physical Therapy Treatment Note PT-OP-A Visit Information Start: 04/01/23 14:20 Freq: Status: Active Protocol: Document 06/19/23 08:22 NM (Rec: 06/19/23 08:59 NM [id number]) Out-Patient Physical Therapy Visit Information Visit Information Visit Type Treatment Note Visit Note 7/10 after PN Visit Start Time 08:20 Visit Stop Time 09:00 Total Visit Minutes 40 Visit Number 16 Evaluation Information Evaluation Date 04/01/23 PT-OP-B Current Condition Start: 04/01/23 14:20 Freq: Status: Active Protocol: Document 05/15/23 16:00 NM (Rec: 05/15/23 16:21 NM [id number]) Current Condition History of Current Condition Onset Date 3 weeks ago Current Complaints left hip pain History of Current Condition Pt reports she had R FAUZIA ( posterior) in October and L FAUZIA (posterior) 3 weeks ago, but has significant pain in left hip and left knee. She is able to ascend/descend 5 steps with 2 SPC, she report she can walk 50 ft with 4WW before onset of pain. At times her pain refers to her hip, and sometimes down her left leg. She also reports feeling that the stress in her personal life may also be contributing to her symptoms, as she has noticed increased pain with stressful situations (i.e. people arguing, dogs barking, etc). Prior Treatments and Tests PT bilateral FAUZIA as above PT-OP-C Subjective Start: 04/01/23 14:20 Freq: Status: Active Protocol: Document 06/19/23 08:22 NM (Rec: 06/19/23 08:59 NM [id number]) OP-PT Subjective Patient Comments Patient Comments Pt reports that she is doing well and feels like her endurance is her most limiting factor right now. She reports that the stretches are helpful and she can put on her shoes/socks. 0/10 pain in hip but reports tingling from hip to knee PT-OP-G Mobility & Gait Start: 04/01/23 14:20 Freq: Status: Active Protocol: Document 04/01/23 14:32 AB (Rec: 04/01/23 17:38 AB [id number]) OP Gait Assessment Assistive Devices Assistive Device 4 Wheeled Walker Gait Deviations General Gait Pattern Antalgic,Decreased Stride Length,Decreased Feet Clearance,Flexed Trunk Factors Limiting Gait Function Factors Limiting Gait Function Decreased Strength,Limited Range of Motion,Pain Comments Gait Comments Pt's gait mechanics improved by adjusting heigt of 4WW. She was educated on heel-to-toe gait pattern to normalize mechanics. PT-OP-J Posture/Palpation/Skin Start: 04/01/23 14:20 Freq: Status: Active Protocol: Document 04/01/23 17:38 AB (Rec: 04/01/23 17:40 AB [id number]) Skin Assessment Incisional Assessment Incision Appearance/Comments left posterior FAUZIA incision appears well healed without abnormal swelling or redness PT-OP-K Range of Motion Start: 04/01/23 14:20 Freq: Status: Active Protocol: Document 05/15/23 16:00 NM (Rec: 05/15/23 16:21 NM [id number]) Hip Goniometric Range of Motion Hip Left Active Testing Position supine, sitting Flexion w/Knee Flexed 105 Extension 0 Abduction 20 Internal Rotation 20 External Rotation 15 Comments no pain but difficult to perform Right Active Testing Position supine, sitting Flexion w/Knee Flexed 120 Extension 0 Abduction 20 Internal Rotation 25 External Rotation 20 PT-OP-M Strength Start: 04/01/23 14:20 Freq: Status: Active Protocol: Document 05/15/23 16:00 NM (Rec: 05/15/23 16:21 NM [id number]) Hip Strength Hip Manual Muscle Testing Right Flexion (L2) 4- Good- Extension (S1) 3+ Fair+ Abduction 4 Good Adduction 3+ Fair+ External Rotation 4- Good- Internal Rotation 4- Good- Left Flexion (L2) 4- Good- Extension (S1) 3+ Fair+ Abduction 3+ Fair+ Adduction 3+ Fair+ External Rotation 3+ Fair+ Internal Rotation 3+ Fair+ Comments Only reports mild discomfort with resisted hip flex, no pain with any of the other resisted motions. Knee Strength Knee Manual Muscle Testing Right Flexion (S2) 4 Good Extension (L3) 4- Good- Left Flexion (S2) 4- Good- Extension (L3) 4- Good- PT-OP-Q Treatments Start: 04/01/23 14:20 Freq: Status: Active Protocol: Document 06/19/23 08:22 NM (Rec: 06/19/23 08:59 NM [id number]) Cardio Equipment Recumbent Bicycle Duration (Minutes) 4 Resistance 4 Other warm up to decrease stiffness Therapeutic Exercises Supine Exercises Figure 4 stretch Supine Exercise Name for hip ER ROM- performs as HEP in am Side bilateral Equipment Used more comfortable foot inner thigh vs over opp LE Reps/Minutes [id number] breach Comments greater ROM LLE than RLE Sidelying Exercises hip abd Side bilateral Reps/Minutes 3x5 Comments cued stacked alignment, toe pointed to ground for more glute med reverse clamshell Reps/Minutes 1x10 Comments for HEP review Sitting Exercises Hip IR Side bilateral Resistance lvl 1 tb (lightblue) Equipment Used small orange ball btn knees, band at ankles Reps/Minutes 2x15 Comments HEP Standing Exercises band walk Side bilateral Resistance Tb #2 mid boone>ankles Reps/Minutes 30 ft x1 laps Comments fatiguing; cues for slightknee flex/hip flex for better glute activation lateral step down Side bilateral Equipment Used 6 step, rail mod BUE support Reps/Minutes 2x10 Comments R >L hip weakness that feel in hip and knee effort step ups Standing Exercise Name lateral step up Side bilateral Equipment Used 6 step, 1 [employer] SALES [employer] for steadying Reps/Minutes 2x8 Comments cues to prevent hip drop, slow eccentric control Marching Standing Exercise Name HEP Side bilateral Equipment Used teal band around feet Reps/Minutes 2x8 Comments fatiguing PT-OP-R Modalities Start: 04/01/23 14:20 Freq: Status: Active Protocol: Document 05/04/23 08:58 SP (Rec: 05/04/23 09:07 SP [id number]) Electric Stimulation Electric Stimulation Interferential Current (IFC) Body Location L hip Duration (Minutes) 8 Intensity 32 Combined With Heat/Cold Hot Pack PT-OP-T Assessment and Plan Start: 04/01/23 14:20 Freq: Status: Active Protocol: Document 06/19/23 08:22 NM (Rec: 06/19/23 08:59 NM [id number]) Physical Therapy Assessment Goals Eight Impairment Gait Short Term Goal (STG) Pt to walk household distances independently/mod independent with LRAD to show improving gait and tolerance to activity to return to PLOF. STG Duration 4 Usp Goal (LTG) Pt to walk community distances independently/mod independent with LRAD to show improving gait and tolerance to activity to return to PLOF. 11/10: Able to ambulate up to 170 ft (up to 1 block) independently with LRAD before requiring rest -- progressing toward goal LTG Duration 8 Seven Impairment Hip AROM Short Term Goal (STG) Pt's bilateral hip ER to improve to 20 or better to show improving AROM to perform functional activities. STG Duration 4 [employer] Super[employer] Goal (LTG) Pt's bilateral hip ER to improve to 25 or better to show improving AROM to perform functional activities. 05/15: L hip ER 15 deg, R hip ER 20 deg --progressing toward goal LTG Duration 8 Six Impairment Hip AROM Short Term Goal (STG) Pt's bilateral hip IR to improve to 30 or better to show improving AROM to perform functional activities. STG Duration 4 Usp Goal (LTG) Pt's bilateral hip IR to improve to 35 or better to show improving AROM to perform functional activities. 05/15: L hip IR 25 deg, R hip IR 25 -- progressing toward goal LTG Duration 8 Five Impairment Hip AROM Short Term Goal (STG) Pt's bilateral hip ABD to improve to 25 or better to show improving AROM to perform functional activities. STG Duration 4 Usp Goal (LTG) Pt's bilateral hip abd to improve to 30 or better to show improving AROM to perform functional activities. 05/15: L hip 20deg, R hip 20 deg - progressing toward goal LTG Duration 8 Four Impairment Hip AROM Short Term Goal (STG) Pt's bilateral hip flexion to improve to 105 or better to show improving AROM to perform functional activities. STG Duration 4 [employer] Super[employer] Goal (LTG) Pt's bilateral hip flexion to improve to 115 or better to show improving AROM to perform functional activities. 05/15: L Hip flex 105 deg, R hip 110 deg - progressing toward goal LTG Duration 8 Three Impairment Pain Short Term Goal (STG) Pt to report bilateral hip pain of 5/10 or better with activity to show resolving pain symptoms. STG Duration 4 [employer] Supervisor [employer] Goal (LTG) Pt to report bilateral hip pain of 2/10 or better with activity to show resolving pain symptoms. 05/15: 3/10 pain with activity - progressing toward goal LTG Duration 8 Two Impairment MMT Short Term Goal (STG) Pt's gross BLE MMT scores to improve to 4-/5 or better to show improving strength to improve ability to perform functional activities. STG Duration 4 Usp Goal (LTG) Pt's gross BLE MMT scores to improve to 4+/10 or better to show improving strength to improve ability to perform functional activities. 05/15: R hip gross MMT 4-/5 ( abd 4/5, add 3+/5), L hip gross MMT 3+/5 (flex 4-/5) -- Progressing toward goal LTG Duration 8 One Impairment Patient Questionnaire Short Term Goal (STG) Pt's LEFS score to improve to 25/80 or better to show improving subjective report of symptoms for an improved QOL. [employer] Supervisor [employer] Goal (LTG) Pt's LEFS score to improve to 45/80 or better to show improving subjective report of symptoms for an improved QOL. 05/15: LEFS 16/80 -- Progressing toward goal LTG Duration 8 Assessment Summary Assessment Tmt focus on increasing R hip abduction/flexion and glute strength for improved hip stability during gait, stairs, and for improved balance. She tolerated seated hip IR strengthening well against resistance. Pt also continues to lack hip ER and IR ROM; would benefit from manual PROM and stretching to improve range within pt tolerance. Pt continues to be easily fatigued, especially in the L hip with activities. She demos poor hip stability during single leg activities like stairs; she demos an opposite hip drop during gait and step downs. She requires mod cues for correct exercise execution , slower controlled motion. Pt attempts to move through motions quickly. Pt is self- limiting overall and does not perform updated HEP despite max encouragement/education about progressing exercises to progress strength. She has been compliant with her hep but has not performed the progressions that have been assigned. Pt would benefit from skilled PT intervention to address impairments in BLE strength, ROM, balance, gait, and endurance for improved activity tolerance, safety, and to return to PLOF. Physical Therapy Plan Frequency and Duration Frequency of Treatment 2x/Week Duration of treatment (weeks) 8 Plan of Care Start Date 04/01/23 Plan of Care End Date 07/17/23 Therapeutic Interventions Therapeutic Interventions Balance Training,Gait Training ,Home Exercise Program,Joint Mobilizations,Manual Therapy, Neuromuscular Re-education, Patient/Caregiver Education, Self-Care/Home Management,Soft Tissue Mobilization,Taping, Therapeutic Activities, Therapeutic Exercises Modalities Cold Pack/Ice Massage,Electric Stimulation,Hot Packs Next Visit Focus/Plan Next Note Type Treatment Note Next Visit Plan HEP review. Next tx: trial resisted hip IR sitting with light TB. Review step ups/down . Focus on hip abd strengthenign and stretching POC: Continue and progress hip stretching (figure 4, IR, hip ext) to improve ROM. Focus on BLE hip abd/glut/quad strengthening april during step ups, gait.
--- NOTE | 2023-06-22 09:00 | PT.OTN ---
Current Diagnoses Unilateral primary osteoarthritis, left hip (06/22/23) Physical Therapy Treatment Note PT-OP-A Visit Information Start: 04/01/23 14:20 Freq: Status: Active Protocol: Document 06/22/23 08:18 SP (Rec: 06/22/23 09:02 SP [id number]) Out-Patient Physical Therapy Visit Information Visit Information Visit Type Treatment Note Visit Note 8/ after PN Visit Start Time 08:18 Visit Stop Time 09:00 Total Visit Minutes 42 Visit Number 17 Number of CURTAIN CUTTER Visits 1 Evaluation Information Evaluation Date 04/01/23 PT-OP-B Current Condition Start: 04/01/23 14:20 Freq: Status: Active Protocol: Document 05/15/23 16:00 NM (Rec: 05/15/23 16:21 NM [id number]) Current Condition History of Current Condition Onset Date 3 weeks ago Current Complaints left hip pain History of Current Condition Pt reports she had R FAUZIA ( posterior) in October and L FAUZIA (posterior) 3 weeks ago, but has significant pain in left hip and left knee. She is able to ascend/descend 5 steps with 2 SPC, she report she can walk 50 ft with 4WW before onset of pain. At times her pain refers to her hip, and sometimes down her left leg. She also reports feeling that the stress in her personal life may also be contributing to her symptoms, as she has noticed increased pain with stressful situations (i.e. people arguing, dogs barking, etc). Prior Treatments and Tests PT bilateral FAUZIA as above PT-OP-C Subjective Start: 04/01/23 14:20 Freq: Status: Active Protocol: Document 06/22/23 08:18 SP (Rec: 06/22/23 09:02 SP [id number]) OP-PT Subjective Patient Comments Patient Comments Pt reports compliant with HEP: bridging, Fig 4, clamshell, ABD, band walk. She reports didn't realize her R hip weaker than her good L hip. She thinks the new exercises are helping. The achiness woke her up and she performed hip exercises and felt better to go back to sleep. PT-OP-G Mobility & Gait Start: 04/01/23 14:20 Freq: Status: Active Protocol: Document 04/01/23 14:32 AB (Rec: 04/01/23 17:38 AB [id number]) OP Gait Assessment Assistive Devices Assistive Device 4 Wheeled Walker Gait Deviations General Gait Pattern Antalgic,Decreased Stride Length,Decreased Feet Clearance,Flexed Trunk Factors Limiting Gait Function Factors Limiting Gait Function Decreased Strength,Limited Range of Motion,Pain Comments Gait Comments Pt's gait mechanics improved by adjusting heigt of 4WW. She was educated on heel-to-toe gait pattern to normalize mechanics. PT-OP-J Posture/Palpation/Skin Start: 04/01/23 14:20 Freq: Status: Active Protocol: Document 04/01/23 17:38 AB (Rec: 04/01/23 17:40 AB [id number]) Skin Assessment Incisional Assessment Incision Appearance/Comments left posterior FAUZIA incision appears well healed without abnormal swelling or redness PT-OP-K Range of Motion Start: 04/01/23 14:20 Freq: Status: Active Protocol: Document 05/15/23 16:00 NM (Rec: 05/15/23 16:21 NM [id number]) Hip Goniometric Range of Motion Hip Left Active Testing Position supine, sitting Flexion w/Knee Flexed 105 Extension 0 Abduction 20 Internal Rotation 20 External Rotation 15 Comments no pain but difficult to perform Right Active Testing Position supine, sitting Flexion w/Knee Flexed 120 Extension 0 Abduction 20 Internal Rotation 25 External Rotation 20 PT-OP-M Strength Start: 04/01/23 14:20 Freq: Status: Active Protocol: Document 05/15/23 16:00 NM (Rec: 05/15/23 16:21 NM [id number]) Hip Strength Hip Manual Muscle Testing Right Flexion (L2) 4- Good- Extension (S1) 3+ Fair+ Abduction 4 Good Adduction 3+ Fair+ External Rotation 4- Good- Internal Rotation 4- Good- Left Flexion (L2) 4- Good- Extension (S1) 3+ Fair+ Abduction 3+ Fair+ Adduction 3+ Fair+ External Rotation 3+ Fair+ Internal Rotation 3+ Fair+ Comments Only reports mild discomfort with resisted hip flex, no pain with any of the other resisted motions. Knee Strength Knee Manual Muscle Testing Right Flexion (S2) 4 Good Extension (L3) 4- Good- Left Flexion (S2) 4- Good- Extension (L3) 4- Good- PT-OP-Q Treatments Start: 04/01/23 14:20 Freq: Status: Active Protocol: Document 06/22/23 08:18 SP (Rec: 06/22/23 09:02 SP [id number]) Cardio Equipment Recumbent Elliptical (Biodex) Duration (Minutes) 6 Resistance 3>4 (at 3 min anshul) Seat Position 7 Other BLEs with some occasional UE support Therapeutic Exercises Supine Exercises Figure 4 stretch Supine Exercise Name for hip ER ROM- performs as HEP in am Side bilateral Equipment Used more comfortable foot inner thigh Reps/Minutes 60-cued breach Comments greater ROM LLE than RLE bridge Supine Exercise Name Reviewed HEP- 06/22/23: updated holds Resistance AROM Reps/Minutes 30 x3 reps Comments occaional cue eccentric control lowering start position Sidelying Exercises hip abd Side bilateral Reps/Minutes x10 Comments cued stacked alignment, toe pointed to ground for more glute med reverse clamshell Side bilateral Reps/Minutes x15 Comments post hip muscle tiring clamshell Sidelying Exercise Name reviewed HEP Side bilateral Resistance AROM Reps/Minutes x10 each side Comments this is tiring, 3rd of 3 Standing Exercises band walk Side bilateral Resistance Tb #2 teal at ankles Reps/Minutes 15 ft x1 lap Comments fatiguing hip muscles lateral step down Side bilateral Equipment Used 6> 4step, rail mod BUE support Reps/Minutes x10 each LE Comments R >L hip weakness that feel in hip and knee effort Gait Training Gait Activity stairs Description inside receiprocal gait Device Used light R HR needed for stability Level of Assistance SBA Distance/Duration MAP bldg stairs (14 stairs x2 laps) Treatment Focus receiprocal stepping, eccentric control descend, stabiltiy Comments pt improved eccentric descend post cues for slower step down . Neuro Re-Education Treatment Balance Activities hurdles Details fwd Surface 5 hurdles f/lateral 2 laps each, Fwd c/foam receiprocal Equipment CGA c/ GB Reps/Duration 4 min Comments Receiprocal stepping, occ cues for L>R hip ER heel strike. Improved stability able add foam. trail ft caught x2 [employer] LIBRARIAN & GB recovery LOB. PT-OP-R Modalities Start: 04/01/23 14:20 Freq: Status: Active Protocol: Document 05/04/23 08:58 SP (Rec: 05/04/23 09:07 SP [id number]) Electric Stimulation Electric Stimulation Interferential Current (IFC) Body Location L hip Duration (Minutes) 8 Intensity 32 Combined With Heat/Cold Hot Pack PT-OP-T Assessment and Plan Start: 04/01/23 14:20 Freq: Status: Active Protocol: Document 06/22/23 08:18 SP (Rec: 06/22/23 09:02 SP [id number]) Physical Therapy Assessment Goals Eight Impairment Gait Short Term Goal (STG) Pt to walk household distances independently/mod independent with LRAD to show improving gait and tolerance to activity to return to PLOF. STG Duration 4 Mcc Goal (LTG) Pt to walk community distances independently/mod independent with LRAD to show improving gait and tolerance to activity to return to PLOF. 10: Able to ambulate up to 170 ft (up to 1 block) independently with LRAD before requiring rest -- progressing toward goal LTG Duration 8 Seven Impairment Hip AROM Short Term Goal (STG) Pt's bilateral hip ER to improve to 20 or better to show improving AROM to perform functional activities. STG Duration 4 Snow Fence Erector Goal (LTG) Pt's bilateral hip ER to improve to 25 or better to show improving AROM to perform functional activities. 05/15: L hip ER 15 deg, R hip ER 20 deg --progressing toward goal LTG Duration 8 Six Impairment Hip AROM Short Term Goal (STG) Pt's bilateral hip IR to improve to 30 or better to show improving AROM to perform functional activities. STG Duration 4 Mcc Goal (LTG) Pt's bilateral hip IR to improve to 35 or better to show improving AROM to perform functional activities. 05/15: L hip IR 25 deg, R hip IR 25 -- progressing toward goal LTG Duration 8 Five Impairment Hip AROM Short Term Goal (STG) Pt's bilateral hip ABD to improve to 25 or better to show improving AROM to perform functional activities. STG Duration 4 Snow Fence Erector Goal (LTG) Pt's bilateral hip abd to improve to 30 or better to show improving AROM to perform functional activities. 05/15: L hip 20deg, R hip 20 deg - progressing toward goal LTG Duration 8 Four Impairment Hip AROM Short Term Goal (STG) Pt's bilateral hip flexion to improve to 105 or better to show improving AROM to perform functional activities. STG Duration 4 Mcc Goal (LTG) Pt's bilateral hip flexion to improve to 115 or better to show improving AROM to perform functional activities. 05/15: L Hip flex 105 deg, R hip 110 deg - progressing toward goal LTG Duration 8 Three Impairment Pain Short Term Goal (STG) Pt to report bilateral hip pain of 5/10 or better with activity to show resolving pain symptoms. STG Duration 4 Snow Fence Erector Goal (LTG) Pt to report bilateral hip pain of 2/10 or better with activity to show resolving pain symptoms. 11: 3/10 pain with activity - progressing toward goal LTG Duration 8 Two Impairment MMT Short Term Goal (STG) Pt's gross BLE MMT scores to improve to 4-/5 or better to show improving strength to improve ability to perform functional activities. STG Duration 4 Mcc Goal (LTG) Pt's gross BLE MMT scores to improve to 4+/10 or better to show improving strength to improve ability to perform functional activities. 05/15: R hip gross MMT 4-/5 ( abd 4/5, add 3+/5), L hip gross MMT 3+/5 (flex 4-/5) -- Progressing toward goal LTG Duration 8 One Impairment Patient Questionnaire Short Term Goal (STG) Pt's LEFS score to improve to 25/80 or better to show improving subjective report of symptoms for an improved QOL. Mcc Goal (LTG) Pt's LEFS score to improve to 45/80 or better to show improving subjective report of symptoms for an improved QOL. 05/15: LEFS 16/80 -- Progressing toward goal LTG Duration 8 Assessment Summary Assessment Pt good tiring response to hip abd strengthening this tx. Occasional cues required for proper set up for sidelying ther ex. Trialed review of stair mgt, pt requires light 1 UE support due to TKE and hip ABD weakness noted SLS time during LE advancement R weaker than L.Pt had LOB viering off to R into CURTAIN CUTTER, noted each LE not advancing quickly enough with trunk momentum after stair mgt. CURTAIN CUTTER Min A required for assisted in recovery. Physical Therapy Plan Frequency and Duration Frequency of Treatment 2x/Week Duration of treatment (weeks) 8 Plan of Care Start Date 04/01/23 Plan of Care End Date 07/17/23 Therapeutic Interventions Therapeutic Interventions Balance Training,Gait Training ,Home Exercise Program,Joint Mobilizations,Manual Therapy, Neuromuscular Re-education, Patient/Caregiver Education, Self-Care/Home Management,Soft Tissue Mobilization,Taping, Therapeutic Activities, Therapeutic Exercises Modalities Cold Pack/Ice Massage,Electric Stimulation,Hot Packs Next Visit Focus/Plan Next Note Type Treatment Note Next Visit Plan UPdate POC on 07/13 PT appt. HEP review. Next tx: trial resisted hip IR sitting with light TB. Review step ups/down . Focus on hip abd strengthenign and stretching POC: Continue and progress hip stretching (figure 4, IR, hip ext) to improve ROM. Focus on BLE hip abd/glut/quad strengthening april during step ups, gait.
--- NOTE | 2023-06-25 09:00 | PT.OTN ---
Current Diagnoses Unilateral primary osteoarthritis, left hip (06/25/23) Physical Therapy Treatment Note PT-OP-A Visit Information Start: 04/01/23 14:20 Freq: Status: Active Protocol: Document 06/25/23 08:20 SP (Rec: 06/25/23 09:03 SP [id number]) Out-Patient Physical Therapy Visit Information Visit Information Visit Type Treatment Note Visit Note 03/15 after PN Visit Start Time 08:20 Visit Stop Time 09:00 Total Visit Minutes 40 Visit Number 18 Number of MAIL TELLER Visits 2 Evaluation Information Evaluation Date 04/01/23 PT-OP-B Current Condition Start: 04/01/23 14:20 Freq: Status: Active Protocol: Document 05/15/23 16:00 NM (Rec: 05/15/23 16:21 NM [id number]) Current Condition History of Current Condition Onset Date 3 weeks ago Current Complaints left hip pain History of Current Condition Pt reports she had R FAUZIA ( posterior) in October and L FAUZIA (posterior) 3 weeks ago, but has significant pain in left hip and left knee. She is able to ascend/descend 5 steps with 2 SPC, she report she can walk 50 ft with 4WW before onset of pain. At times her pain refers to her hip, and sometimes down her left leg. She also reports feeling that the stress in her personal life may also be contributing to her symptoms, as she has noticed increased pain with stressful situations (i.e. people arguing, dogs barking, etc). Prior Treatments and Tests PT bilateral FAUZIA as above PT-OP-C Subjective Start: 04/01/23 14:20 Freq: Status: Active Protocol: Document 06/25/23 08:20 SP (Rec: 06/25/23 09:03 SP [id number]) OP-PT Subjective Patient Comments Patient Comments Pt reports when tries to keep toe out with walking and exercises but notiicing boone discomfort. She reports compliant with HEP but still feels off balance when walks around. She reported during tx , I dont' know if have ever told you but I do have dizzy spells at times and doctor aware but not sure why. PT-OP-G Mobility & Gait Start: 04/01/23 14:20 Freq: Status: Active Protocol: Document 04/01/23 14:32 AB (Rec: 04/01/23 17:38 AB [id number]) OP Gait Assessment Assistive Devices Assistive Device 4 Wheeled Walker Gait Deviations General Gait Pattern Antalgic,Decreased Stride Length,Decreased Feet Clearance,Flexed Trunk Factors Limiting Gait Function Factors Limiting Gait Function Decreased Strength,Limited Range of Motion,Pain Comments Gait Comments Pt's gait mechanics improved by adjusting heigt of 4WW. She was educated on heel-to-toe gait pattern to normalize mechanics. PT-OP-J Posture/Palpation/Skin Start: 04/01/23 14:20 Freq: Status: Active Protocol: Document 04/01/23 17:38 AB (Rec: 04/01/23 17:40 AB [id number]) Skin Assessment Incisional Assessment Incision Appearance/Comments left posterior FAUZIA incision appears well healed without abnormal swelling or redness PT-OP-K Range of Motion Start: 04/01/23 14:20 Freq: Status: Active Protocol: Document 05/15/23 16:00 NM (Rec: 05/15/23 16:21 NM [id number]) Hip Goniometric Range of Motion Hip Left Active Testing Position supine, sitting Flexion w/Knee Flexed 105 Extension 0 Abduction 20 Internal Rotation 20 External Rotation 15 Comments no pain but difficult to perform Right Active Testing Position supine, sitting Flexion w/Knee Flexed 120 Extension 0 Abduction 20 Internal Rotation 25 External Rotation 20 PT-OP-M Strength Start: 04/01/23 14:20 Freq: Status: Active Protocol: Document 05/15/23 16:00 NM (Rec: 05/15/23 16:21 NM [id number]) Hip Strength Hip Manual Muscle Testing Right Flexion (L2) 4- Good- Extension (S1) 3+ Fair+ Abduction 4 Good Adduction 3+ Fair+ External Rotation 4- Good- Internal Rotation 4- Good- Left Flexion (L2) 4- Good- Extension (S1) 3+ Fair+ Abduction 3+ Fair+ Adduction 3+ Fair+ External Rotation 3+ Fair+ Internal Rotation 3+ Fair+ Comments Only reports mild discomfort with resisted hip flex, no pain with any of the other resisted motions. Knee Strength Knee Manual Muscle Testing Right Flexion (S2) 4 Good Extension (L3) 4- Good- Left Flexion (S2) 4- Good- Extension (L3) 4- Good- PT-OP-Q Treatments Start: 04/01/23 14:20 Freq: Status: Active Protocol: Document 06/25/23 08:20 SP (Rec: 06/25/23 09:03 SP [id number]) Cardio Equipment Recumbent Bicycle Duration (Minutes) 6 Resistance 6>8 Seat Position 4 Other warm up to decrease stiffness Therapeutic Exercises Supine Exercises adductor stretch Supine Exercise Name reviewed self inner thigh stretch Side bilateral Resistance R>L tight Reps/Minutes 10 SH x2 Comments good feedback inner thigh stretch Figure 4 stretch Supine Exercise Name for hip ER ROM- performs as HEP in am Side bilateral Equipment Used more comfortable foot inner thigh Reps/Minutes 60-cued breach Comments greater ROM LLE than RLE bridge Supine Exercise Name Reviewed HEP- 06/22/23: updated holds Resistance AROM Reps/Minutes 30 x3 reps Comments occaional cue eccentric control lowering start position Standing Exercises calf stretch Side bilateral Reps/Minutes 30 stationary lunges Standing Exercise Name trialed in PT band walk Side bilateral Resistance Tb #2 teal at ankles Reps/Minutes 15 ft x2 lap, rail Comments fatiguing hip muscles lateral step down Side bilateral Equipment Used 6step, rail min/mod 1UE support Reps/Minutes x10 each LE Comments R >L hip weakness that feel in hip and knee effort step ups Standing Exercise Name fwd/back step up down Side bilateral Equipment Used 8 step (trunk step height), PRN rail contact for steadying and quad assist Reps/Minutes x4 reps each L Comments cues TKE ascend, controlled eccentric down Neuro Re-Education Treatment Balance Activities incline/decline Details hill: 6 step, 2 set wedges, blue mat over Equipment + 2>5 hurdles Comments Min> CGA, cued glut firing hurdles Details fwd Surface 5 hurdles f/lateral 2 laps each, Fwd c/foam receiprocal Equipment CGA c/ GB Reps/Duration 4 min Comments Receiprocal stepping, occ cues for L>R hip ER heel strike. Improved stability able add foam. trail ft caught x2 [employer] & GB recovery LOB. Self-Care/Home Management Treatment Education Patient Education Fall Risk,Safety Other Education Discussed log check BP, what doing and what time/day when dizziness happens to problem solve at home for data assessment for her physician why having dizziness. Pt verbalized a good idea and will start this. PT-OP-R Modalities Start: 04/01/23 14:20 Freq: Status: Active Protocol: Document 05/04/23 08:58 SP (Rec: 05/04/23 09:07 SP [id number]) Electric Stimulation Electric Stimulation Interferential Current (IFC) Body Location L hip Duration (Minutes) 8 Intensity 32 Combined With Heat/Cold Hot Pack PT-OP-T Assessment and Plan Start: 04/01/23 14:20 Freq: Status: Active Protocol: Document 06/25/23 08:20 SP (Rec: 06/25/23 09:03 SP [id number]) Physical Therapy Assessment Goals Eight Impairment Gait Short Term Goal (STG) Pt to walk household distances independently/mod independent with LRAD to show improving gait and tolerance to activity to return to PLOF. STG Duration 4 Correction Goal (LTG) Pt to walk community distances independently/mod independent with LRAD to show improving gait and tolerance to activity to return to PLOF. 1110: Able to ambulate up to 170 ft (up to 1 block) independently with LRAD before requiring rest -- progressing toward goal LTG Duration 8 Seven Impairment Hip AROM Short Term Goal (STG) Pt's bilateral hip ER to improve to 20 or better to show improving AROM to perform functional activities. STG Duration 4 Correction Goal (LTG) Pt's bilateral hip ER to improve to 25 or better to show improving AROM to perform functional activities. 05/15: L hip ER 15 deg, R hip ER 20 deg --progressing toward goal LTG Duration 8 Six Impairment Hip AROM Short Term Goal (STG) Pt's bilateral hip IR to improve to 30 or better to show improving AROM to perform functional activities. STG Duration 4 Correction Goal (LTG) Pt's bilateral hip IR to improve to 35 or better to show improving AROM to perform functional activities. 05/15: L hip IR 25 deg, R hip IR 25 -- progressing toward goal LTG Duration 8 Five Impairment Hip AROM Short Term Goal (STG) Pt's bilateral hip ABD to improve to 25 or better to show improving AROM to perform functional activities. STG Duration 4 Form Setter Helper Goal (LTG) Pt's bilateral hip abd to improve to 30 or better to show improving AROM to perform functional activities. 10: L hip 20deg, R hip 20 deg - progressing toward goal LTG Duration 8 Four Impairment Hip AROM Short Term Goal (STG) Pt's bilateral hip flexion to improve to 105 or better to show improving AROM to perform functional activities. STG Duration 4 Correction Goal (LTG) Pt's bilateral hip flexion to improve to 115 or better to show improving AROM to perform functional activities. 05/15: L Hip flex 105 deg, R hip 110 deg - progressing toward goal LTG Duration 8 Three Impairment Pain Short Term Goal (STG) Pt to report bilateral hip pain of 5/10 or better with activity to show resolving pain symptoms. STG Duration 4 Form Setter Helper Goal (LTG) Pt to report bilateral hip pain of 2/10 or better with activity to show resolving pain symptoms. 05/15: 3/10 pain with activity - progressing toward goal LTG Duration 8 Two Impairment MMT Short Term Goal (STG) Pt's gross BLE MMT scores to improve to 4-/5 or better to show improving strength to improve ability to perform functional activities. STG Duration 4 Correction Goal (LTG) Pt's gross BLE MMT scores to improve to 4+/10 or better to show improving strength to improve ability to perform functional activities. 05/15: R hip gross MMT 4-/5 ( abd 4/5, add 3+/5), L hip gross MMT 3+/5 (flex 4-/5) -- Progressing toward goal LTG Duration 8 One Impairment Patient Questionnaire Short Term Goal (STG) Pt's LEFS score to improve to 25/80 or better to show improving subjective report of symptoms for an improved QOL. Form Setter Helper Goal (LTG) Pt's LEFS score to improve to 45/80 or better to show improving subjective report of symptoms for an improved QOL. 05/15: LEFS 16/80 -- Progressing toward goal LTG Duration 8 Assessment Summary Assessment Pt had a dizzy spell post band walk, stop stand still contact rail for recovery then went away, SBA for safety. Pt improved able to perform lateral step down with reduction to 1 UE min/mod WB support on rail, forward and back step downs with increase height 8 able to perform 4 reps without UE support before tires and demonstrates challenge L>R LE quad and glut firing weekness to complete full ascend posturing stance, so stop to prevent risk of LEs buckling. Pt improved decrease contact support during uneven jt stepping but required cues for increase KYE and CGA trunk stabiltiy during uneven incline/decline today. She would benefit from continued strengthening and balance progression for safety community ambulation. Physical Therapy Plan Frequency and Duration Frequency of Treatment 2x/Week Duration of treatment (weeks) 8 Plan of Care Start Date 04/01/23 Plan of Care End Date 07/17/23 Therapeutic Interventions Therapeutic Interventions Balance Training,Gait Training ,Home Exercise Program,Joint Mobilizations,Manual Therapy, Neuromuscular Re-education, Patient/Caregiver Education, Self-Care/Home Management,Soft Tissue Mobilization,Taping, Therapeutic Activities, Therapeutic Exercises Modalities Cold Pack/Ice Massage,Electric Stimulation,Hot Packs Next Visit Focus/Plan Next Note Type Treatment Note Next Visit Plan UPdate POC on 07/13 PT appt. HEP review: Focus on hip abd strengthenign and stretching, carryover balance with mobility. Next tx: quad, glut strengthening and squat slat pickler items for safety stability around home she finds challenging and unsafe still. POC: Continue and progress hip stretching (figure 4, IR, hip ext) to improve ROM. Focus on BLE hip abd/glut/quad strengthening april during step ups, gait.
--- NOTE | 2023-07-03 16:04 | PT.OTN ---
Current Diagnoses Unilateral primary osteoarthritis, left hip (07/03/23) Physical Therapy Treatment Note PT-OP-A Visit Information Start: 04/01/23 14:20 Freq: Status: Active Protocol: Document 07/03/23 14:37 NM (Rec: 07/03/23 16:04 NM [id number]) Out-Patient Physical Therapy Visit Information Visit Information Visit Type Progress Note Visit Start Time 14:30 Visit Stop Time 15:15 Total Visit Minutes 45 Visit Number 19 Evaluation Information Evaluation Date 04/01/23 PT-OP-B Current Condition Start: 04/01/23 14:20 Freq: Status: Active Protocol: Document 05/15/23 16:00 NM (Rec: 05/15/23 16:21 NM [id number]) Current Condition History of Current Condition Onset Date 3 weeks ago Current Complaints left hip pain History of Current Condition Pt reports she had R FAUZIA ( posterior) in October and L FAUZIA (posterior) 3 weeks ago, but has significant pain in left hip and left knee. She is able to ascend/descend 5 steps with 2 SPC, she report she can walk 50 ft with 4WW before onset of pain. At times her pain refers to her hip, and sometimes down her left leg. She also reports feeling that the stress in her personal life may also be contributing to her symptoms, as she has noticed increased pain with stressful situations (i.e. people arguing, dogs barking, etc). Prior Treatments and Tests PT bilateral FAUZIA as above PT-OP-C Subjective Start: 04/01/23 14:20 Freq: Status: Active Protocol: Document 07/03/23 14:37 NM (Rec: 07/03/23 16:04 NM [id number]) OP-PT Subjective Patient Comments Patient Comments Pt reports that she has been in pain for 4 days in her LLE (inner thigh) after doing a supine figure 4. She reports that the pain started in her L calf, then wrapped up her L leg ending about the knee; it is in the medial thigh area. Pt reports that she did not have any hip pain during this time, only leg pain. She is distressed. She reports 5/10 L hip pain. She reports that her leg feels heavier and won 't go like the other leg. She is having difficulty with ambulation and rising to stand . PT-OP-G Mobility & Gait Start: 04/01/23 14:20 Freq: Status: Active Protocol: Document 04/01/23 14:32 AB (Rec: 04/01/23 17:38 AB [id number]) OP Gait Assessment Assistive Devices Assistive Device 4 Wheeled Walker Gait Deviations General Gait Pattern Antalgic,Decreased Stride Length,Decreased Feet Clearance,Flexed Trunk Factors Limiting Gait Function Factors Limiting Gait Function Decreased Strength,Limited Range of Motion,Pain Comments Gait Comments Pt's gait mechanics improved by adjusting heigt of 4WW. She was educated on heel-to-toe gait pattern to normalize mechanics. PT-OP-J Posture/Palpation/Skin Start: 04/01/23 14:20 Freq: Status: Active Protocol: Document 04/01/23 17:38 AB (Rec: 04/01/23 17:40 AB [id number]) Skin Assessment Incisional Assessment Incision Appearance/Comments left posterior FAUZIA incision appears well healed without abnormal swelling or redness PT-OP-K Range of Motion Start: 04/01/23 14:20 Freq: Status: Active Protocol: Document 07/03/23 14:37 NM (Rec: 07/03/23 16:04 NM [id number]) Hip Goniometric Range of Motion Hip Left Active Testing Position supine, sitting Flexion w/Knee Flexed 105 Extension 0 Abduction 30 Internal Rotation 35 External Rotation 25 Comments 05/2023: flex: 105 deg abd: 20 deg IR: 20 deg ER: 15 deg Right Active Testing Position supine, sitting Flexion w/Knee Flexed 120 Extension 0 Abduction 30 Internal Rotation 30 External Rotation 25 Comments 05/2023: flex: 120 deg abd: 20 deg IR: 25 deg ER: 20 deg PT-OP-M Strength Start: 04/01/23 14:20 Freq: Status: Active Protocol: Document 07/03/23 14:37 NM (Rec: 07/03/23 16:04 NM [id number]) Hip Strength Hip Manual Muscle Testing Right Flexion (L2) 4- Good- Extension (S1) 4 Good Abduction 4 Good Adduction 4 Good External Rotation 4 Good Internal Rotation 4+ Good+ Left Flexion (L2) 4- Good- Extension (S1) 4 Good Abduction 4- Good- Adduction 4 Good External Rotation 4- Good- Internal Rotation 4+ Good+ PT-OP-Q Treatments Start: 04/01/23 14:20 Freq: Status: Active Protocol: Document 07/03/23 14:37 NM (Rec: 07/03/23 16:04 NM [id number]) Therapeutic Exercises Supine Exercises Figure 4 stretch Supine Exercise Name trialed after resisted ADD- no pain reported any more Side bilateral Reps/Minutes 1x30 Comments greater ROM LLE than RLE Sitting Exercises Hip IR Side bilateral Resistance lvl 1 tb (lightblue) Equipment Used small orange ball btn knees, band at ankles Reps/Minutes 1x10 Comments HEP Standing Exercises Sit to stand Standing Exercise Name from chair; for quad/glute strength Side bilateral Equipment Used fwd reach, no UE assistance Reps/Minutes 1x5 Comments fatigueing; added to HEP; cues for fwd weight shift and hip hinge Gait Training Gait Activity stairs Description inside receiprocal gait Device Used light R HR needed for stability Level of Assistance SBA Distance/Duration 4x4 6 steps Treatment Focus receiprocal stepping, eccentric control descend, stabiltiy Comments Pt cued for slower step down, eccentric control of quad. Cues for hip flex/foot clearance, no opposite hip drop. Pt demos better glute med control on LLE than RLE, demos greater hip drop in R stance Normal gait Description normal gait Device Used 0 Level of Assistance I Surface carpet Distance/Duration 200 ft, various lengths around gym Treatment Focus TKE, core&TA eccentric soft heel strike, hip ER neutral Comments Improved mechanics Self-Care/Home Management Treatment Education Patient Education Body Mechanics,Fall Risk,Home Exercise Program,Safety Other Education Issued HO with updated HEP: sit to stand, seated IR, step up with rail prn Discussed being gentle stretch , importance of performing updated HEP, safety. PT-OP-R Modalities Start: 04/01/23 14:20 Freq: Status: Active Protocol: Document 05/04/23 08:58 SP (Rec: 05/04/23 09:07 SP [id number]) Electric Stimulation Electric Stimulation Interferential Current (IFC) Body Location L hip Duration (Minutes) 8 Intensity 32 Combined With Heat/Cold Hot Pack PT-OP-T Assessment and Plan Start: 04/01/23 14:20 Freq: Status: Active Protocol: Document 07/03/23 14:37 NM (Rec: 07/03/23 16:04 NM [id number]) Physical Therapy Assessment Goals Eight Impairment Gait Short Term Goal (STG) Pt to walk household distances independently/mod independent with LRAD to show improving gait and tolerance to activity to return to PLOF. STG Duration 4 Supervisor Public [employer] Nursing Goal (LTG) Pt to walk community distances independently/mod independent with LRAD to show improving gait and tolerance to activity to return to PLOF. 05/15: Able to ambulate up to 170 ft (up to 1 block) independently with LRAD before requiring rest -- progressing toward goal LTG Duration 8 PROGRESSING Seven Impairment Hip AROM Short Term Goal (STG) Pt's bilateral hip ER to improve to 20 or better to show improving AROM to perform functional activities. STG Duration 4 Supervisor [employer] Nursing Goal (LTG) Pt's bilateral hip ER to improve to 25 or better to show improving AROM to perform functional activities. 07/03/23: B hip ER 25 deg 05/15: L hip ER 15 deg, R hip ER 20 deg --progressing toward goal LTG Duration 8 MET Six Impairment Hip AROM Short Term Goal (STG) Pt's bilateral hip IR to improve to 30 or better to show improving AROM to perform functional activities. STG Duration 4 Supervisor [employer] Nursing Goal (LTG) Pt's bilateral hip IR to improve to 35 or better to show improving AROM to perform functional activities. 07/03/23: R hip 30 deg, L 35 deg 05/15: L hip IR 25 deg, R hip IR 25 -- progressing toward goal LTG Duration 8 PARTIALLY MET Five Impairment Hip AROM Short Term Goal (STG) Pt's bilateral hip ABD to improve to 25 or better to show improving AROM to perform functional activities. STG Duration 4 Supervisor [employer] Nursing Goal (LTG) Pt's bilateral hip abd to improve to 30 or better to show improving AROM to perform functional activities. 07/03/23: b hip abd 30 deg 05/15: L hip 20deg, R hip 20 deg - progressing toward goal LTG Duration 8 MET Four Impairment Hip AROM Short Term Goal (STG) Pt's bilateral hip flexion to improve to 105 or better to show improving AROM to perform functional activities. STG Duration 4 Supervisor Public Health Nursing Goal (LTG) Pt's bilateral hip flexion to improve to 115 or better to show improving AROM to perform functional activities. 07/03/23: L 105 deg, R 120 deg LTG Duration 8 PROGRESSING Three Impairment Pain Short Term Goal (STG) Pt to report bilateral hip pain of 5/10 or better with activity to show resolving pain symptoms. STG Duration 4 [facility] Goal (LTG) Pt to report bilateral hip pain of 2/10 or better with activity to show resolving pain symptoms. 07/03/23: Pt normally has max 2/10 pain with activity, usually 0/10 05/15: 3/10 pain with activity - progressing toward goal LTG Duration 8 Two Impairment MMT Short Term Goal (STG) Pt's gross BLE MMT scores to improve to 4-/5 or better to show improving strength to improve ability to perform functional activities. 07/03/23: All hip motions are at least 4-/5 STG Duration 4 MET Supervisor Public Health Nursing Goal (LTG) Pt's gross BLE MMT scores to improve to 4+/10 or better to show improving strength to improve ability to perform functional activities. 07/03/23: Progressing toward goal 4/5 for B ext/add; flex 4 -/5; L abd abnd ER 4-/5; R ER/ add/abd; IR 4+/5 4/5 LTG Duration 8 PROGRESSING One Impairment Patient Questionnaire Short Term Goal (STG) Pt's LEFS score to improve to 25/80 or better to show improving subjective report of symptoms for an improved QOL. [facility] Goal (LTG) Pt's LEFS score to improve to 45/80 or better to show improving subjective report of symptoms for an improved QOL. 05/15: LEFS 16/80 -- Progressing toward goal LTG Duration 8 Progress Towards Goals Progress Towards Goals Progressing Toward Goals,Slow Progress due to Activity Tolerance,Slow Progress due to Noncompliance,Goals Met Progress Comments Met 2 LTG Progressing twd 3 LTG Assessment Summary Assessment Pt presents to clinic with greater pain than normal, reporting pain in her L adductors, tender to palpation . Pt reports that this occurred during supine hip ER (figure 4 stretch). PT assessed as pt initially reported pain with resisted hip ADD in 45 deg hip flex; however, pt reports brief popping sensation at pubic symphysis then complete resolution of pain. Pt able to ambulate around clinic without any pain in her L hip or adductors for 200 ft without antalgic gait pattern, normal mechanics; also able to perform step ups without pain or discomfort. PT encouraged pt to follow up with PCP, to which pt verbalizes agreement. Remaining tmt focus on quad/ glute strengthening, balance, gait/stair training. PT reviewed HEP (STS, seated hip IR, step up with rail) with pt as she has limited compliance with updated HEP; discussed importance of performing most updated version. Pt performed STS with fwd reach from chair , cues for fwd weight shift and hip hinge. During step ups , pt continues to demo poor quad control upon descent and is unable to maintain even pelvis even with cues, worse RLE>LLE. Physical Therapy Plan Frequency and Duration Frequency of Treatment 2x/Week Duration of treatment (weeks) 8 Plan of Care Start Date 07/03/23 Plan of Care End Date 08/28/23 Therapeutic Interventions Therapeutic Interventions Balance Training,Gait Training ,Home Exercise Program,Joint Mobilizations,Manual Therapy, Neuromuscular Re-education, Patient/Caregiver Education, Self-Care/Home Management,Soft Tissue Mobilization,Taping, Therapeutic Activities, Therapeutic Exercises Modalities Cold Pack/Ice Massage,Electric Stimulation,Hot Packs Next Visit Focus/Plan Next Note Type Treatment Note Next Visit Plan HEP review: Make sure doing most updated HEP. Focus on hip abd strengthenign and stretching, carryover balance with mobility. Next tx: quad, glut strengthening and squat pick up driver items for safety stability around home she finds challenging and unsafe still. Balance POC: Continue and progress hip stretching (figure 4, IR, hip ext) to improve ROM. Focus on BLE hip abd/glut/quad strengthening april during step ups, gait. Give LEFS next session
--- NOTE | 2023-07-03 16:06 | PT.OPPN ---
Current Diagnoses Unilateral primary osteoarthritis, left hip (07/03/23) Physical Therapy Progress Note PT-OP-A Visit Information Start: 04/01/23 14:20 Freq: Status: Active Protocol: Document 07/03/23 14:37 NM (Rec: 07/03/23 16:04 NM [id number]) Out-Patient Physical Therapy Visit Information Visit Information Visit Type Progress Note Visit Start Time 14:30 Visit Stop Time 15:15 Total Visit Minutes 45 Visit Number 19 Evaluation Information Evaluation Date 04/01/23 PT-OP-B Current Condition Start: 04/01/23 14:20 Freq: Status: Active Protocol: Document 05/15/23 16:00 NM (Rec: 05/15/23 16:21 NM [id number]) Current Condition History of Current Condition Onset Date 3 weeks ago Current Complaints left hip pain History of Current Condition Pt reports she had R FAUZIA ( posterior) in October and L FAUZIA (posterior) 3 weeks ago, but has significant pain in left hip and left knee. She is able to ascend/descend 5 steps with 2 SPC, she report she can walk 50 ft with 4WW before onset of pain. At times her pain refers to her hip, and sometimes down her left leg. She also reports feeling that the stress in her personal life may also be contributing to her symptoms, as she has noticed increased pain with stressful situations (i.e. people arguing, dogs barking, etc). Prior Treatments and Tests PT bilateral FAUZIA as above PT-OP-C Subjective Start: 04/01/23 14:20 Freq: Status: Active Protocol: Document 07/03/23 14:37 NM (Rec: 07/03/23 16:04 NM [id number]) OP-PT Subjective Patient Comments Patient Comments Pt reports that she has been in pain for 4 days in her LLE (inner thigh) after doing a supine figure 4. She reports that the pain started in her L calf, then wrapped up her L leg ending about the knee; it is in the medial thigh area. Pt reports that she did not have any hip pain during this time, only leg pain. She is distressed. She reports 5/10 L hip pain. She reports that her leg feels heavier and won 't go like the other leg. She is having difficulty with ambulation and rising to stand . PT-OP-G Mobility & Gait Start: 04/01/23 14:20 Freq: Status: Active Protocol: Document 04/01/23 14:32 AB (Rec: 04/01/23 17:38 AB [id number]) OP Gait Assessment Assistive Devices Assistive Device 4 Wheeled Walker Gait Deviations General Gait Pattern Antalgic,Decreased Stride Length,Decreased Feet Clearance,Flexed Trunk Factors Limiting Gait Function Factors Limiting Gait Function Decreased Strength,Limited Range of Motion,Pain Comments Gait Comments Pt's gait mechanics improved by adjusting heigt of 4WW. She was educated on heel-to-toe gait pattern to normalize mechanics. PT-OP-J Posture/Palpation/Skin Start: 04/01/23 14:20 Freq: Status: Active Protocol: Document 04/01/23 17:38 AB (Rec: 04/01/23 17:40 AB [id number]) Skin Assessment Incisional Assessment Incision Appearance/Comments left posterior FAUZIA incision appears well healed without abnormal swelling or redness PT-OP-K Range of Motion Start: 04/01/23 14:20 Freq: Status: Active Protocol: Document 07/03/23 14:37 NM (Rec: 07/03/23 16:04 NM [id number]) Hip Goniometric Range of Motion Hip Measured in Degrees Left Active Testing Position supine, sitting Flexion w/Knee Flexed 105 Extension 0 Abduction 30 Internal Rotation 35 External Rotation 25 Comments 05/2023: flex: 105 deg abd: 20 deg IR: 20 deg ER: 15 deg Right Active Testing Position supine, sitting Flexion w/Knee Flexed 120 Extension 0 Abduction 30 Internal Rotation 30 External Rotation 25 Comments 05/2023: flex: 120 deg abd: 20 deg IR: 25 deg ER: 20 deg PT-OP-M Strength Start: 04/01/23 14:20 Freq: Status: Active Protocol: Document 07/03/23 14:37 NM (Rec: 07/03/23 16:04 NM [id number]) Hip Strength Hip Manual Muscle Testing Right Flexion (L2) 4- Good- Extension (S1) 4 Good Abduction 4 Good Adduction 4 Good External Rotation 4 Good Internal Rotation 4+ Good+ Left Flexion (L2) 4- Good- Extension (S1) 4 Good Abduction 4- Good- Adduction 4 Good External Rotation 4- Good- Internal Rotation 4+ Good+ PT-OP-T Assessment and Plan Start: 04/01/23 14:20 Freq: Status: Active Protocol: Document 07/03/23 14:37 NM (Rec: 07/03/23 16:04 NM [id number]) Physical Therapy Assessment Goals Eight Impairment Gait Short Term Goal (STG) Pt to walk household distances independently/mod independent with LRAD to show improving gait and tolerance to activity to return to PLOF. STG Duration 4 Nursing Home Goal (LTG) Pt to walk community distances independently/mod independent with LRAD to show improving gait and tolerance to activity to return to PLOF. 05/15: Able to ambulate up to 170 ft (up to 1 block) independently with LRAD before requiring rest -- progressing toward goal LTG Duration 8 PROGRESSING Seven Impairment Hip AROM Short Term Goal (STG) Pt's bilateral hip ER to improve to 20 or better to show improving AROM to perform functional activities. STG Duration 4 Business Office Technology Instructor Goal (LTG) Pt's bilateral hip ER to improve to 25 or better to show improving AROM to perform functional activities. 07/03/23: B hip ER 25 deg 05/15: L hip ER 15 deg, R hip ER 20 deg --progressing toward goal LTG Duration 8 MET Six Impairment Hip AROM Short Term Goal (STG) Pt's bilateral hip IR to improve to 30 or better to show improving AROM to perform functional activities. STG Duration 4 Nursing Home Goal (LTG) Pt's bilateral hip IR to improve to 35 or better to show improving AROM to perform functional activities. 07/03/23: R hip 30 deg, L 35 deg 05/15: L hip IR 25 deg, R hip IR 25 -- progressing toward goal LTG Duration 8 PARTIALLY MET Five Impairment Hip AROM Short Term Goal (STG) Pt's bilateral hip ABD to improve to 25 or better to show improving AROM to perform functional activities. STG Duration 4 Nursing Home Goal (LTG) Pt's bilateral hip abd to improve to 30 or better to show improving AROM to perform functional activities. 07/03/23: b hip abd 30 deg 05/15: L hip 20deg, R hip 20 deg - progressing toward goal LTG Duration 8 MET Four Impairment Hip AROM Short Term Goal (STG) Pt's bilateral hip flexion to improve to 105 or better to show improving AROM to perform functional activities. STG Duration 4 Nursing Home Goal (LTG) Pt's bilateral hip flexion to improve to 115 or better to show improving AROM to perform functional activities. 07/03/23: L 105 deg, R 120 deg LTG Duration 8 PROGRESSING Three Impairment Pain Short Term Goal (STG) Pt to report bilateral hip pain of 5/10 or better with activity to show resolving pain symptoms. STG Duration 4 Nursing Home Goal (LTG) Pt to report bilateral hip pain of 2/10 or better with activity to show resolving pain symptoms. 07/03/23: Pt normally has max 2/10 pain with activity, usually 0/10 05/15: 3/10 pain with activity - progressing toward goal LTG Duration 8 Two Impairment MMT Short Term Goal (STG) Pt's gross BLE MMT scores to improve to 4-/5 or better to show improving strength to improve ability to perform functional activities. 07/03/23: All hip motions are at least 4-/5 STG Duration 4 MET Nursing Home Goal (LTG) Pt's gross BLE MMT scores to improve to 4+/10 or better to show improving strength to improve ability to perform functional activities. 07/03/23: Progressing toward goal 4/5 for B ext/add; flex 4 -/5; L abd abnd ER 4-/5; R ER/ add/abd; IR 4+/5 4/5 LTG Duration 8 PROGRESSING One Impairment Patient Questionnaire Short Term Goal (STG) Pt's LEFS score to improve to 25/80 or better to show improving subjective report of symptoms for an improved QOL. Nursing Home Goal (LTG) Pt's LEFS score to improve to 45/80 or better to show improving subjective report of symptoms for an improved QOL. 05/15: LEFS 16/80 -- Progressing toward goal LTG Duration 8 Progress Towards Goals Progress Towards Goals Progressing Toward Goals,Slow Progress due to Activity Tolerance,Slow Progress due to Noncompliance,Goals Met Progress Comments Met 2 LTG Progressing twd 3 LTG Assessment Summary Assessment Pt has been seen in clinic x18 sessions since IE s/p L FAUZIA. She is progressing toward goals and has met 2 LTG since last PN. However, she continues to lack complete L hip ROM and demos decrease B hip strength, which limits her ability to perform gait/stairs along with activity tolerance. Pt is minimally compliant with most updated HEP, continuing to perform earlier HEPs despite continuous education. Pt reports improvement in ability to perform ADLs, but still reports that she is not back to PLOF. Pt would benefit from skilled PT intervention to progress BLE strengthening and ROM, address impairments in balance, gait and stairs in order to decrease fall risk, improve overall safety, and promote improved activity tolerance. Physical Therapy Plan Frequency and Duration Frequency of Treatment 2x/Week Duration of treatment (weeks) 8 Plan of Care Start Date 07/03/23 Plan of Care End Date 08/28/23 Therapeutic Interventions Therapeutic Interventions Balance Training,Gait Training ,Home Exercise Program,Joint Mobilizations,Manual Therapy, Neuromuscular Re-education, Patient/Caregiver Education, Self-Care/Home Management,Soft Tissue Mobilization,Taping, Therapeutic Activities, Therapeutic Exercises Modalities Cold Pack/Ice Massage,Electric Stimulation,Hot Packs Next Visit Focus/Plan Next Note Type Treatment Note Next Visit Plan HEP review: Make sure doing most updated HEP. Focus on hip abd strengthenign and stretching, carryover balance with mobility. Next tx: quad, glut strengthening and squat tack picker items for safety stability around home she finds challenging and unsafe still. Balance POC: Continue and progress hip stretching (figure 4, IR, hip ext) to improve ROM. Focus on BLE hip abd/glut/quad strengthening april during step ups, gait. Give LEFS next session
--- NOTE | 2023-07-03 16:06 | PT.OPPOC ---
Physical, Occupational & Speech Therapy At [facility] Current Diagnoses Unilateral primary osteoarthritis, left hip (07/03/23) Visit Care Team Role Provider Type Renetta Higginbotham MD Family Provider Physician Primary Care Provider Specialty: Internal Medicine Address: [place], [address] Email: Sarah Rodriguez PA-C Attending Provider Non-Staff Referring Provider Specialty: General Surgery Address: [address] [place] [address], [id number] Email: Plan Of Care PT-OP-T Assessment and Plan Start: 04/01/23 14:20 Freq: Status: Active Protocol: Document 07/03/23 14:37 NM (Rec: 07/03/23 16:04 NM [id number]) Physical Therapy Assessment Goals Eight Impairment Gait Short Term Goal (STG) Pt to walk household distances independently/mod independent with LRAD to show improving gait and tolerance to activity to return to PLOF. STG Duration 4 Technician Anatomic Pathology Goal (LTG) Pt to walk community distances independently/mod independent with LRAD to show improving gait and tolerance to activity to return to PLOF. 05/15: Able to ambulate up to 170 ft (up to 1 block) independently with LRAD before requiring rest -- progressing toward goal LTG Duration 8 PROGRESSING Seven Impairment Hip AROM Short Term Goal (STG) Pt's bilateral hip ER to improve to 20 or better to show improving AROM to perform functional activities. STG Duration 4 Half-Way Goal (LTG) Pt's bilateral hip ER to improve to 25 or better to show improving AROM to perform functional activities. 07/03/23: B hip ER 25 deg 05/15: L hip ER 15 deg, R hip ER 20 deg --progressing toward goal LTG Duration 8 MET Six Impairment Hip AROM Short Term Goal (STG) Pt's bilateral hip IR to improve to 30 or better to show improving AROM to perform functional activities. STG Duration 4 Technician Anatomic Pathology Goal (LTG) Pt's bilateral hip IR to improve to 35 or better to show improving AROM to perform functional activities. 07/03/23: R hip 30 deg, L 35 deg 11/10: L hip IR 25 deg, R hip IR 25 -- progressing toward goal LTG Duration 8 PARTIALLY MET Five Impairment Hip AROM Short Term Goal (STG) Pt's bilateral hip ABD to improve to 25 or better to show improving AROM to perform functional activities. STG Duration 4 Half-Way Goal (LTG) Pt's bilateral hip abd to improve to 30 or better to show improving AROM to perform functional activities. 07/03/23: b hip abd 30 deg 05/15: L hip 20deg, R hip 20 deg - progressing toward goal LTG Duration 8 MET Four Impairment Hip AROM Short Term Goal (STG) Pt's bilateral hip flexion to improve to 105 or better to show improving AROM to perform functional activities. STG Duration 4 Technician Anatomic Pathology Goal (LTG) Pt's bilateral hip flexion to improve to 115 or better to show improving AROM to perform functional activities. 07/03/23: L 105 deg, R 120 deg LTG Duration 8 PROGRESSING Three Impairment Pain Short Term Goal (STG) Pt to report bilateral hip pain of 5/10 or better with activity to show resolving pain symptoms. STG Duration 4 Half-Way Goal (LTG) Pt to report bilateral hip pain of 2/10 or better with activity to show resolving pain symptoms. 07/03/23: Pt normally has max 2/10 pain with activity, usually 0/10 11/10: 3/10 pain with activity - progressing toward goal LTG Duration 8 Two Impairment MMT Short Term Goal (STG) Pt's gross BLE MMT scores to improve to 4-/5 or better to show improving strength to improve ability to perform functional activities. 07/03/23: All hip motions are at least 4-/5 STG Duration 4 MET Technician Anatomic Pathology Goal (LTG) Pt's gross BLE MMT scores to improve to 4+/10 or better to show improving strength to improve ability to perform functional activities. 07/03/23: Progressing toward goal 4/5 for B ext/add; flex 4 -/5; L abd abnd ER 4-/5; R ER/ add/abd; IR 4+/5 4/5 LTG Duration 8 PROGRESSING One Impairment Patient Questionnaire Short Term Goal (STG) Pt's LEFS score to improve to 25/80 or better to show improving subjective report of symptoms for an improved QOL. Technician Anatomic Pathology Goal (LTG) Pt's LEFS score to improve to 45/80 or better to show improving subjective report of symptoms for an improved QOL. 05/15: LEFS -- Progressing toward goal LTG Duration 8 Progress Towards Goals Progress Towards Goals Progressing Toward Goals,Slow Progress due to Activity Tolerance,Slow Progress due to Noncompliance,Goals Met Progress Comments Met 2 LTG Progressing twd 3 LTG Assessment Summary Assessment Pt has been seen in clinic x18 sessions since IE s/p L FAUZIA. Pt is progressing toward goals and has met 2 LTG since last PN. However, she continues to lack complete L hip ROM and demos decrease B hip strength, which limits her ability to perform gait/stairs along with activity tolerance. Pt is minimally compliant with most updated HEP, continuing to perform earlier HEPs despite continuous education. Pt reports improvement in ability to perform ADLs, but still reports that she is not back to PLOF. Pt would benefit from skilled PT intervention to progress BLE strengthening and ROM, address impairments in balance, gait and stairs in order to decrease fall risk, improve overall safety, and promote improved activity tolerance. Physical Therapy Plan Frequency and Duration Frequency of Treatment 2x/Week Duration of treatment (weeks) 8 Plan of Care Start Date 07/03/23 Plan of Care End Date 08/28/23 Therapeutic Interventions Therapeutic Interventions Balance Training,Gait Training ,Home Exercise Program,Joint Mobilizations,Manual Therapy, Neuromuscular Re-education, Patient/Caregiver Education, Self-Care/Home Management,Soft Tissue Mobilization,Taping, Therapeutic Activities, Therapeutic Exercises Modalities Cold Pack/Ice Massage,Electric Stimulation,Hot Packs Next Visit Focus/Plan Next Note Type Treatment Note Next Visit Plan HEP review: Make sure doing most updated HEP. Focus on hip abd strengthenign and stretching, carryover balance with mobility. Next tx: quad, glut strengthening and squat cook pickled meat items for safety stability around home she finds challenging and unsafe still. Balance POC: Continue and progress hip stretching (figure 4, IR, hip ext) to improve ROM. Focus on BLE hip abd/glut/quad strengthening april during step ups, gait. Give LEFS next session Plan of Care Dates Plan of Care Start Date 07/03/23 Plan of Care End Date 08/28/23 Electronically Signed by: Lisa Montemayor, PT 07/03/23 0321 If you are in agreement with this Plan of Care, please return a signed and dated copy. I have reviewed this Plan of Care and certify that the skilled therapy services above are required to meet the patient?s needs. Physician Signature Date Printed Name and Credentials Clinical Instructor Signature Printed Name and Credentials
--- NOTE | 2023-07-08 13:00 | PT.OTN ---
Current Diagnoses Unilateral primary osteoarthritis, left hip (07/08/23) Physical Therapy Treatment Note PT-OP-A Visit Information Start: 04/01/23 14:20 Freq: Status: Active Protocol: Document 07/08/23 12:21 SP (Rec: 07/08/23 13:07 SP [id number]) Out-Patient Physical Therapy Visit Information Visit Information Visit Type Treatment Note Visit Note 08/15 post PN Visit Start Time 12:21 Visit Stop Time 13:00 Total Visit Minutes 39 Visit Number 20 Number of PHOTOGRAMMETRIC TECHNICIAN Visits 1 Evaluation Information Evaluation Date 04/01/23 PT-OP-B Current Condition Start: 04/01/23 14:20 Freq: Status: Active Protocol: Document 05/15/23 16:00 NM (Rec: 05/15/23 16:21 NM [id number]) Current Condition History of Current Condition Onset Date 3 weeks ago Current Complaints left hip pain History of Current Condition Pt reports she had R FAUZIA ( posterior) in October and L FAUZIA (posterior) 3 weeks ago, but has significant pain in left hip and left knee. She is able to ascend/descend 5 steps with 2 SPC, she report she can walk 50 ft with 4WW before onset of pain. At times her pain refers to her hip, and sometimes down her left leg. She also reports feeling that the stress in her personal life may also be contributing to her symptoms, as she has noticed increased pain with stressful situations (i.e. people arguing, dogs barking, etc). Prior Treatments and Tests PT bilateral FAUZIA as above PT-OP-C Subjective Start: 04/01/23 14:20 Freq: Status: Active Protocol: Document 07/08/23 12:21 SP (Rec: 07/08/23 13:07 SP [id number]) OP-PT Subjective Patient Comments Patient Comments Pt reports she felt alot better after last tx and was so happy walking out. When woke up next am had the same pain over L proximal adductor upon arrival. PT-OP-G Mobility & Gait Start: 04/01/23 14:20 Freq: Status: Active Protocol: Document 04/01/23 14:32 AB (Rec: 04/01/23 17:38 AB [id number]) OP Gait Assessment Assistive Devices Assistive Device 4 Wheeled Walker Gait Deviations General Gait Pattern Antalgic,Decreased Stride Length,Decreased Feet Clearance,Flexed Trunk Factors Limiting Gait Function Factors Limiting Gait Function Decreased Strength,Limited Range of Motion,Pain Comments Gait Comments Pt's gait mechanics improved by adjusting heigt of 4WW. She was educated on heel-to-toe gait pattern to normalize mechanics. PT-OP-J Posture/Palpation/Skin Start: 04/01/23 14:20 Freq: Status: Active Protocol: Document 04/01/23 17:38 AB (Rec: 04/01/23 17:40 AB [id number]) Skin Assessment Incisional Assessment Incision Appearance/Comments left posterior FAUZIA incision appears well healed without abnormal swelling or redness PT-OP-K Range of Motion Start: 04/01/23 14:20 Freq: Status: Active Protocol: Document 07/03/23 14:37 NM (Rec: 07/03/23 16:04 NM [id number]) Hip Goniometric Range of Motion Hip Left Active Testing Position supine, sitting Flexion w/Knee Flexed 105 Extension 0 Abduction 30 Internal Rotation 35 External Rotation 25 Comments 05/2023: flex: 105 deg abd: 20 deg IR: 20 deg ER: 15 deg Right Active Testing Position supine, sitting Flexion w/Knee Flexed 120 Extension 0 Abduction 30 Internal Rotation 30 External Rotation 25 Comments 05/2023: flex: 120 deg abd: 20 deg IR: 25 deg ER: 20 deg PT-OP-M Strength Start: 04/01/23 14:20 Freq: Status: Active Protocol: Document 07/03/23 14:37 NM (Rec: 07/03/23 16:04 NM [id number]) Hip Strength Hip Manual Muscle Testing Right Flexion (L2) 4- Good- Extension (S1) 4 Good Abduction 4 Good Adduction 4 Good External Rotation 4 Good Internal Rotation 4+ Good+ Left Flexion (L2) 4- Good- Extension (S1) 4 Good Abduction 4- Good- Adduction 4 Good External Rotation 4- Good- Internal Rotation 4+ Good+ PT-OP-Q Treatments Start: 04/01/23 14:20 Freq: Status: Active Protocol: Document 07/08/23 12:21 SP (Rec: 07/08/23 13:07 SP [id number]) Therapeutic Exercises Supine Exercises leg lengthener Supine Exercise Name trialed in PT for LE elongation Side left Resistance AROM Reps/Minutes 5 SH x10 Comments good response painfree. adductor stretch Supine Exercise Name reviewed self inner thigh stretch Side bilateral Resistance AROM tolerant range Reps/Minutes 10 SH x2 Comments good feedback inner thigh stretch /c breath, painfree Figure 4 stretch Supine Exercise Name unable right now due to pain L adductor Side left clamshell Supine Exercise Name reviewed HEP: single Side bilateral Resistance AROM Reps/Minutes x10 Comments feels ok, little muscle shaky Sidelying Exercises hip abd Sidelying Exercise Name reviewed HEP Side bilateral Reps/Minutes x10 Comments cued stacked alignment, toe pointed to ground for more glute med clamshell Sidelying Exercise Name reviewed HEP Side bilateral Resistance AROM Reps/Minutes x5 each side Comments good slow pacing, painfree Manual Therapy Treatment Soft Tissue Mobilization L hip Body Location L prox quad, L adductor, L TLF (through clothes) Mobilization Type Strumming,Sustained Pressure, Other Intensity/Depth Superficial Body Position Hooklying Comments sensitive pressure palpation over proximal Rectus Femoris, most proximal adductors, ok over pubic bone. PT-OP-R Modalities Start: 04/01/23 14:20 Freq: Status: Active Protocol: Document 05/04/23 08:58 SP (Rec: 05/04/23 09:07 SP [id number]) Electric Stimulation Electric Stimulation Interferential Current (IFC) Body Location L hip Duration (Minutes) 8 Intensity 32 Combined With Heat/Cold Hot Pack PT-OP-T Assessment and Plan Start: 04/01/23 14:20 Freq: Status: Active Protocol: Document 07/08/23 12:21 SP (Rec: 07/08/23 13:07 SP [id number]) Physical Therapy Assessment Goals Eight Impairment Gait Short Term Goal (STG) Pt to walk household distances independently/mod independent with LRAD to show improving gait and tolerance to activity to return to PLOF. STG Duration 4 Clothing Patternmaker Goal (LTG) Pt to walk community distances independently/mod independent with LRAD to show improving gait and tolerance to activity to return to PLOF. 1110: Able to ambulate up to 170 ft (up to 1 block) independently with LRAD before requiring rest -- progressing toward goal LTG Duration 8 PROGRESSING Seven Impairment Hip AROM Short Term Goal (STG) Pt's bilateral hip ER to improve to 20 or better to show improving AROM to perform functional activities. STG Duration 4 Clothing Patternmaker Goal (LTG) Pt's bilateral hip ER to improve to 25 or better to show improving AROM to perform functional activities. 12/29/23: B hip ER 25 deg 05/15: L hip ER 15 deg, R hip ER 20 deg --progressing toward goal LTG Duration 8 MET Six Impairment Hip AROM Short Term Goal (STG) Pt's bilateral hip IR to improve to 30 or better to show improving AROM to perform functional activities. STG Duration 4 Clothing Patternmaker Goal (LTG) Pt's bilateral hip IR to improve to 35 or better to show improving AROM to perform functional activities. 07/03/23: R hip 30 deg, L 35 deg 05/15: L hip IR 25 deg, R hip IR 25 -- progressing toward goal LTG Duration 8 PARTIALLY MET Five Impairment Hip AROM Short Term Goal (STG) Pt's bilateral hip ABD to improve to 25 or better to show improving AROM to perform functional activities. STG Duration 4 Senior Care Goal (LTG) Pt's bilateral hip abd to improve to 30 or better to show improving AROM to perform functional activities. 07/03/23: b hip abd 30 deg 05/15: L hip 20deg, R hip 20 deg - progressing toward goal LTG Duration 8 MET Four Impairment Hip AROM Short Term Goal (STG) Pt's bilateral hip flexion to improve to 105 or better to show improving AROM to perform functional activities. STG Duration 4 Senior Care Goal (LTG) Pt's bilateral hip flexion to improve to 115 or better to show improving AROM to perform functional activities. 07/03/23: L 105 deg, R 120 deg LTG Duration 8 PROGRESSING Three Impairment Pain Short Term Goal (STG) Pt to report bilateral hip pain of 5/10 or better with activity to show resolving pain symptoms. STG Duration 4 Senior Care Goal (LTG) Pt to report bilateral hip pain of 2/10 or better with activity to show resolving pain symptoms. 07/03/23: Pt normally has max 2/10 pain with activity, usually 0/10 1110: 3/10 pain with activity - progressing toward goal LTG Duration 8 Two Impairment MMT Short Term Goal (STG) Pt's gross BLE MMT scores to improve to 4-/5 or better to show improving strength to improve ability to perform functional activities. 07/03/23: All hip motions are at least 4-/5 STG Duration 4 MET Clothing Patternmaker Goal (LTG) Pt's gross BLE MMT scores to improve to 4+/10 or better to show improving strength to improve ability to perform functional activities. 07/03/23: Progressing toward goal 4/5 for B ext/add; flex 4 -/5; L abd abnd ER 4-/5; R ER/ add/abd; IR 4+/5 4/5 LTG Duration 8 PROGRESSING One Impairment Patient Questionnaire Short Term Goal (STG) Pt's LEFS score to improve to 25/80 or better to show improving subjective report of symptoms for an improved QOL. Senior Care Goal (LTG) Pt's LEFS score to improve to 45/80 or better to show improving subjective report of symptoms for an improved QOL. 05/15: LEFS 16/80 -- Progressing toward goal LTG Duration 8 Assessment Summary Assessment PHOTOGRAMMETRIC TECHNICIAN noted little swelling L mid to proximal adductor compared to R. Pt reports is less mobility due to L adductor pain, see LEFs Score increased difficulty performing many activities now . Pt reports decreased pain and improved hip IR/ER AROM ther ex. PHOTOGRAMMETRIC TECHNICIAN suggested hold off on resisted band at this time. Pt has follow up with physician for L adductor pain tomorrow. PHOTOGRAMMETRIC TECHNICIAN discussed with pt be aware physican may palpate pubic bone area to be aware for assessment structural alignment and soft tissue integrity, she can ask for female in room for support if feel more comfortable while see male physician, verbalized will ask for comfort. Physical Therapy Plan Frequency and Duration Frequency of Treatment 2x/Week Duration of treatment (weeks) 8 Plan of Care Start Date 07/03/23 Plan of Care End Date 08/28/23 Therapeutic Interventions Therapeutic Interventions Balance Training,Gait Training ,Home Exercise Program,Joint Mobilizations,Manual Therapy, Neuromuscular Re-education, Patient/Caregiver Education, Self-Care/Home Management,Soft Tissue Mobilization,Taping, Therapeutic Activities, Therapeutic Exercises Modalities Cold Pack/Ice Massage,Electric Stimulation,Hot Packs Next Visit Focus/Plan Next Note Type Treatment Note Next Visit Plan Ask how dr reeves went. HEP review: Make sure doing most updated HEP. Focus on hip abd strengthenign and stretching, carryover balance with mobility. Next tx: quad, glut strengthening and squat last picker items for safety stability around home she finds challenging and unsafe still. Balance POC: Continue and progress hip stretching (figure 4, IR, hip ext) to improve ROM. Focus on BLE hip abd/glut/quad strengthening april during step ups, gait.
--- NOTE | 2023-07-10 10:28 | PT.OTN ---
Current Diagnoses Unilateral primary osteoarthritis, left hip (07/10/23) Physical Therapy Treatment Note PT-OP-A Visit Information Start: 04/01/23 14:20 Freq: Status: Active Protocol: Document 07/10/23 09:50 SP (Rec: 07/10/23 10:31 SP [id number]) Out-Patient Physical Therapy Visit Information Visit Information Visit Type Treatment Note Visit Note 09/12 post PN Visit Start Time 09:50 Visit Stop Time 10:28 Total Visit Minutes 38 Visit Number 21 Number of SUPERVISOR BLOOD Visits 2 Evaluation Information Evaluation Date 04/01/23 PT-OP-B Current Condition Start: 04/01/23 14:20 Freq: Status: Active Protocol: Document 05/15/23 16:00 NM (Rec: 05/15/23 16:21 NM [id number]) Current Condition History of Current Condition Onset Date 3 weeks ago Current Complaints left hip pain History of Current Condition Pt reports she had R FAUZIA ( posterior) in October and L FAUZIA (posterior) 3 weeks ago, but has significant pain in left hip and left knee. She is able to ascend/descend 5 steps with 2 SPC, she report she can walk 50 ft with 4WW before onset of pain. At times her pain refers to her hip, and sometimes down her left leg. She also reports feeling that the stress in her personal life may also be contributing to her symptoms, as she has noticed increased pain with stressful situations (i.e. people arguing, dogs barking, etc). Prior Treatments and Tests PT bilateral FAUZIA as above PT-OP-C Subjective Start: 04/01/23 14:20 Freq: Status: Active Protocol: Document 07/10/23 09:50 SP (Rec: 07/10/23 10:31 SP [id number]) OP-PT Subjective Patient Comments Patient Comments Pt reports Dr Higginbotham palpated and looked on taken xray pubic bone looked ok. She reports adductor, found more of an add PT-OP-G Mobility & Gait Start: 04/01/23 14:20 Freq: Status: Active Protocol: Document 04/01/23 14:32 AB (Rec: 04/01/23 17:38 AB [id number]) OP Gait Assessment Assistive Devices Assistive Device 4 Wheeled Walker Gait Deviations General Gait Pattern Antalgic,Decreased Stride Length,Decreased Feet Clearance,Flexed Trunk Factors Limiting Gait Function Factors Limiting Gait Function Decreased Strength,Limited Range of Motion,Pain Comments Gait Comments Pt's gait mechanics improved by adjusting heigt of 4WW. She was educated on heel-to-toe gait pattern to normalize mechanics. PT-OP-J Posture/Palpation/Skin Start: 04/01/23 14:20 Freq: Status: Active Protocol: Document 04/01/23 17:38 AB (Rec: 04/01/23 17:40 AB [id number]) Skin Assessment Incisional Assessment Incision Appearance/Comments left posterior FAUZIA incision appears well healed without abnormal swelling or redness PT-OP-K Range of Motion Start: 04/01/23 14:20 Freq: Status: Active Protocol: Document 07/03/23 14:37 NM (Rec: 07/03/23 16:04 NM [id number]) Hip Goniometric Range of Motion Hip Left Active Testing Position supine, sitting Flexion w/Knee Flexed 105 Extension 0 Abduction 30 Internal Rotation 35 External Rotation 25 Comments 05/2023: flex: 105 deg abd: 20 deg IR: 20 deg ER: 15 deg Right Active Testing Position supine, sitting Flexion w/Knee Flexed 120 Extension 0 Abduction 30 Internal Rotation 30 External Rotation 25 Comments 05/2023: flex: 120 deg abd: 20 deg IR: 25 deg ER: 20 deg PT-OP-M Strength Start: 04/01/23 14:20 Freq: Status: Active Protocol: Document 07/03/23 14:37 NM (Rec: 07/03/23 16:04 NM [id number]) Hip Strength Hip Manual Muscle Testing Right Flexion (L2) 4- Good- Extension (S1) 4 Good Abduction 4 Good Adduction 4 Good External Rotation 4 Good Internal Rotation 4+ Good+ Left Flexion (L2) 4- Good- Extension (S1) 4 Good Abduction 4- Good- Adduction 4 Good External Rotation 4- Good- Internal Rotation 4+ Good+ PT-OP-Q Treatments Start: 04/01/23 14:20 Freq: Status: Active Protocol: Document 07/10/23 09:50 SP (Rec: 07/10/23 10:31 SP [id number]) Therapeutic Exercises Sidelying Exercises hip abd Sidelying Exercise Name reviewed HEP Side bilateral Reps/Minutes x10 Comments cued stacked alignment, toe pointed to ground for more glute med clamshell Sidelying Exercise Name reviewed HEP Side bilateral Resistance AROM> TB #2 (not as far range LLE) Reps/Minutes 2 x12 each side Comments good slow pacing, painfree Sitting Exercises Hip IR Side bilateral Resistance lvl 1 tb (lightblue around B ankles) Equipment Used small orange ball btn knees, band at ankles Reps/Minutes 2x10 reps Comments cued BUE light contact table for spinal posturing, dec trunk/back recruitme sit<> stands Sitting Exercise Name STS Resistance arms fwd for now Equipment Used 18 height table, 21 table Reps/Minutes 5x2, 8 reps Comments arm fwd, no momentum; cues for hip hinge, eccentric control, no knee valgus PT-OP-R Modalities Start: 04/01/23 14:20 Freq: Status: Active Protocol: Document 05/04/23 08:58 SP (Rec: 05/04/23 09:07 SP [id number]) Electric Stimulation Electric Stimulation Interferential Current (IFC) Body Location L hip Duration (Minutes) 8 Intensity 32 Combined With Heat/Cold Hot Pack PT-OP-T Assessment and Plan Start: 04/01/23 14:20 Freq: Status: Active Protocol: Document 07/10/23 09:50 SP (Rec: 07/10/23 10:31 SP [id number]) Physical Therapy Assessment Goals Eight Impairment Gait Short Term Goal (STG) Pt to walk household distances independently/mod independent with LRAD to show improving gait and tolerance to activity to return to PLOF. STG Duration 4 Pancake Professional Goal (LTG) Pt to walk community distances independently/mod independent with LRAD to show improving gait and tolerance to activity to return to PLOF. 05/15: Able to ambulate up to 170 ft (up to 1 block) independently with LRAD before requiring rest -- progressing toward goal LTG Duration 8 PROGRESSING Seven Impairment Hip AROM Short Term Goal (STG) Pt's bilateral hip ER to improve to 20 or better to show improving AROM to perform functional activities. STG Duration 4 Jail Goal (LTG) Pt's bilateral hip ER to improve to 25 or better to show improving AROM to perform functional activities. 07/03/23: B hip ER 25 deg 05/15: L hip ER 15 deg, R hip ER 20 deg --progressing toward goal LTG Duration 8 MET Six Impairment Hip AROM Short Term Goal (STG) Pt's bilateral hip IR to improve to 30 or better to show improving AROM to perform functional activities. STG Duration 4 Pancake Professional Goal (LTG) Pt's bilateral hip IR to improve to 35 or better to show improving AROM to perform functional activities. 07/03/23: R hip 30 deg, L 35 deg 05/15: L hip IR 25 deg, R hip IR 25 -- progressing toward goal LTG Duration 8 PARTIALLY MET Five Impairment Hip AROM Short Term Goal (STG) Pt's bilateral hip ABD to improve to 25 or better to show improving AROM to perform functional activities. STG Duration 4 Jail Goal (LTG) Pt's bilateral hip abd to improve to 30 or better to show improving AROM to perform functional activities. 07/03/23: b hip abd 30 deg 05/15: L hip 20deg, R hip 20 deg - progressing toward goal LTG Duration 8 MET Four Impairment Hip AROM Short Term Goal (STG) Pt's bilateral hip flexion to improve to 105 or better to show improving AROM to perform functional activities. STG Duration 4 Pancake Professional Goal (LTG) Pt's bilateral hip flexion to improve to 115 or better to show improving AROM to perform functional activities. 07/03/23: L 105 deg, R 120 deg LTG Duration 8 PROGRESSING Three Impairment Pain Short Term Goal (STG) Pt to report bilateral hip pain of 5/10 or better with activity to show resolving pain symptoms. STG Duration 4 Jail Goal (LTG) Pt to report bilateral hip pain of 2/10 or better with activity to show resolving pain symptoms. 07/03/23: Pt normally has max 2/10 pain with activity, usually 0/10 1110: 3/10 pain with activity - progressing toward goal LTG Duration 8 Two Impairment MMT Short Term Goal (STG) Pt's gross BLE MMT scores to improve to 4-/5 or better to show improving strength to improve ability to perform functional activities. 07/03/23: All hip motions are at least 4-/5 STG Duration 4 MET Pancake Professional Goal (LTG) Pt's gross BLE MMT scores to improve to 4+/10 or better to show improving strength to improve ability to perform functional activities. 07/03/23: Progressing toward goal 4/5 for B ext/add; flex 4 -/5; L abd abnd ER 4-/5; R ER/ add/abd; IR 4+/5 4/5 LTG Duration 8 PROGRESSING One Impairment Patient Questionnaire Short Term Goal (STG) Pt's LEFS score to improve to 25/80 or better to show improving subjective report of symptoms for an improved QOL. Pancake Professional Goal (LTG) Pt's LEFS score to improve to 45/80 or better to show improving subjective report of symptoms for an improved QOL. 05/15: LEFS 16/80 -- Progressing toward goal LTG Duration 8 Assessment Summary Assessment Pt requires cues for set up and form as needed, good response to focused hip abd strengthening and adductor stretching with no reports of pain, especially when goes slow. Education time spent importance of continuing progresssiver strengthening HEP performed today to give support walking, mobility. Pt verbalized understanding and will bring all HEP HOs to look at next appt to discussed what to perform as HEP at this time. Physical Therapy Plan Frequency and Duration Frequency of Treatment 2x/Week Duration of treatment (weeks) 8 Plan of Care Start Date 07/03/23 Plan of Care End Date 08/28/23 Therapeutic Interventions Therapeutic Interventions Balance Training,Gait Training ,Home Exercise Program,Joint Mobilizations,Manual Therapy, Neuromuscular Re-education, Patient/Caregiver Education, Self-Care/Home Management,Soft Tissue Mobilization,Taping, Therapeutic Activities, Therapeutic Exercises Modalities Cold Pack/Ice Massage,Electric Stimulation,Hot Packs Next Visit Focus/Plan Next Note Type Treatment Note Next Visit Plan Review and condense HEP. HEP review: Make sure doing most updated HEP. Focus on hip abd strengthenign and stretching, carryover balance with mobility. Next tx: quad, glut strengthening and squat warehouse order picker items for safety stability around home she finds challenging and unsafe still. Balance POC: Continue and progress hip stretching (figure 4, IR, hip ext) to improve ROM. Focus on BLE hip abd/glut/quad strengthening april during step ups, gait.
--- NOTE | 2023-07-13 15:38 | PT.OTN ---
Current Diagnoses Unilateral primary osteoarthritis, left hip (07/13/23) Physical Therapy Treatment Note PT-OP-A Visit Information Start: 04/01/23 14:20 Freq: Status: Active Protocol: Document 07/13/23 13:03 NM (Rec: 07/13/23 13:45 NM [id number]) Out-Patient Physical Therapy Visit Information Visit Information Visit Type Treatment Note Visit Note 10/13 post PN Visit Start Time 13:03 Visit Stop Time 13:45 Total Visit Minutes 42 Visit Number 22 Evaluation Information Evaluation Date 04/01/23 PT-OP-B Current Condition Start: 04/01/23 14:20 Freq: Status: Active Protocol: Document 05/15/23 16:00 NM (Rec: 05/15/23 16:21 NM [id number]) Current Condition History of Current Condition Onset Date 3 weeks ago Current Complaints left hip pain History of Current Condition Pt reports she had R FAUZIA ( posterior) in October and L FAUZIA (posterior) 3 weeks ago, but has significant pain in left hip and left knee. She is able to ascend/descend 5 steps with 2 SPC, she report she can walk 50 ft with 4WW before onset of pain. At times her pain refers to her hip, and sometimes down her left leg. She also reports feeling that the stress in her personal life may also be contributing to her symptoms, as she has noticed increased pain with stressful situations (i.e. people arguing, dogs barking, etc). Prior Treatments and Tests PT bilateral FAUZIA as above PT-OP-C Subjective Start: 04/01/23 14:20 Freq: Status: Active Protocol: Document 07/13/23 13:03 NM (Rec: 07/13/23 13:45 NM [id number]) OP-PT Subjective Patient Comments Patient Comments Pt brought her exercises to clinic to review. She reports compliance but states that she cut back to prevent overworking her legs and tiring them out. She states she is doing ok, no pain today anywhere. PT-OP-G Mobility & Gait Start: 04/01/23 14:20 Freq: Status: Active Protocol: Document 04/01/23 14:32 AB (Rec: 04/01/23 17:38 AB [id number]) OP Gait Assessment Assistive Devices Assistive Device 4 Wheeled Walker Gait Deviations General Gait Pattern Antalgic,Decreased Stride Length,Decreased Feet Clearance,Flexed Trunk Factors Limiting Gait Function Factors Limiting Gait Function Decreased Strength,Limited Range of Motion,Pain Comments Gait Comments Pt's gait mechanics improved by adjusting heigt of 4WW. She was educated on heel-to-toe gait pattern to normalize mechanics. PT-OP-J Posture/Palpation/Skin Start: 04/01/23 14:20 Freq: Status: Active Protocol: Document 04/01/23 17:38 AB (Rec: 04/01/23 17:40 AB [id number]) Skin Assessment Incisional Assessment Incision Appearance/Comments left posterior FAUZIA incision appears well healed without abnormal swelling or redness PT-OP-K Range of Motion Start: 04/01/23 14:20 Freq: Status: Active Protocol: Document 07/03/23 14:37 NM (Rec: 07/03/23 16:04 NM [id number]) Hip Goniometric Range of Motion Hip Left Active Testing Position supine, sitting Flexion w/Knee Flexed 105 Extension 0 Abduction 30 Internal Rotation 35 External Rotation 25 Comments 05/2023: flex: 105 deg abd: 20 deg IR: 20 deg ER: 15 deg Right Active Testing Position supine, sitting Flexion w/Knee Flexed 120 Extension 0 Abduction 30 Internal Rotation 30 External Rotation 25 Comments 05/2023: flex: 120 deg abd: 20 deg IR: 25 deg ER: 20 deg PT-OP-M Strength Start: 04/01/23 14:20 Freq: Status: Active Protocol: Document 07/03/23 14:37 NM (Rec: 07/03/23 16:04 NM [id number]) Hip Strength Hip Manual Muscle Testing Right Flexion (L2) 4- Good- Extension (S1) 4 Good Abduction 4 Good Adduction 4 Good External Rotation 4 Good Internal Rotation 4+ Good+ Left Flexion (L2) 4- Good- Extension (S1) 4 Good Abduction 4- Good- Adduction 4 Good External Rotation 4- Good- Internal Rotation 4+ Good+ PT-OP-Q Treatments Start: 04/01/23 14:20 Freq: Status: Active Protocol: Document 07/13/23 13:03 NM (Rec: 07/13/23 13:45 NM [id number]) Therapeutic Exercises Sitting Exercises hip ER Sitting Exercise Name PT hold band for resistance Resistance light blue tb Reps/Minutes 1x10 Comments fatigueing; cues to limit hip flexion compensation Hip IR Side bilateral Resistance lvl 2 tb (lightblue around B ankles) Equipment Used small orange ball btwn knees, band at ankles Reps/Minutes 2x10 reps Comments cued BUE light contact table for spinal posturing, dec trunk/back recruitme LAQ Sitting Exercise Name cable machine Side bilateral Resistance lvl 2 Reps/Minutes 3x5 with 3 second hold for better quad activation Comments cues for full knee ext, isometric hold; reports difficult sit<> stands Sitting Exercise Name STS Side bilateral Resistance arms fwd for now for weight shift Equipment Used 18 height table, 21 table Reps/Minutes 5x2, 3 additional reps Comments arm fwd, no momentum; cues for hip hinge, eccentric control, no knee valgus Standing Exercises Squat Standing Exercise Name trialed with 5# weight p/u from floor- unable to maintain form with weight Side bilateral Reps/Minutes 1x5 Comments pt attempt deadlift instead, off balanced and poor glute form step ups Standing Exercise Name 6 step up Side bilateral Equipment Used 6, trialed 8 step up ( difficulty without using UE to pull up) Reps/Minutes 1x10 ea Comments cues to prevent opposite hip drop, slow motion to prevent momentum hip flexor lunge stretch Side bilateral Equipment Used cues for correct form, neutral toe rotation Reps/Minutes 1x30 Comments HEP review; clear up confusion btwn stretch vs lunge hip ext Standing Exercise Name briefly for HEP review Side bilateral Reps/Minutes 1x5 Comments cues for slow/controlled motion hip abd Standing Exercise Name briefly for HEP review Side bilateral Reps/Minutes 1x5 Comments cues for slow/controlled motion Marching Standing Exercise Name HEP review Self-Care/Home Management Treatment Education Patient Education Home Exercise Program,Safety Other Education PT and pt went through her handouts to address pt concerns about which exercises to perform: sit to stand, sidelying hip abduction, march , side steps, clam, knee to chest stretch, standing hip flexor stretch, hip IR and ER with band. Pt instructed to attempt exercises in the morning (her preferred time) but if she is unable to perform them in the morning due to stiffness or other reasons then to re-attempt later in the day instead. PT-OP-R Modalities Start: 04/01/23 14:20 Freq: Status: Active Protocol: Document 05/04/23 08:58 SP (Rec: 05/04/23 09:07 SP [id number]) Electric Stimulation Electric Stimulation Interferential Current (IFC) Body Location L hip Duration (Minutes) 8 Intensity 32 Combined With Heat/Cold Hot Pack PT-OP-T Assessment and Plan Start: 04/01/23 14:20 Freq: Status: Active Protocol: Document 07/13/23 13:03 NM (Rec: 07/13/23 13:45 NM [id number]) Physical Therapy Assessment Goals Eight Impairment Gait Short Term Goal (STG) Pt to walk household distances independently/mod independent with LRAD to show improving gait and tolerance to activity to return to PLOF. STG Duration 4 Fish Boning Machine Feeder Goal (LTG) Pt to walk community distances independently/mod independent with LRAD to show improving gait and tolerance to activity to return to PLOF. 05/15: Able to ambulate up to 170 ft (up to 1 block) independently with LRAD before requiring rest -- progressing toward goal LTG Duration 8 PROGRESSING Seven Impairment Hip AROM Short Term Goal (STG) Pt's bilateral hip ER to improve to 20 or better to show improving AROM to perform functional activities. STG Duration 4 Long-Term Goal (LTG) Pt's bilateral hip ER to improve to 25 or better to show improving AROM to perform functional activities. 07/03/23: B hip ER 25 deg 05/15: L hip ER 15 deg, R hip ER 20 deg --progressing toward goal LTG Duration 8 MET Six Impairment Hip AROM Short Term Goal (STG) Pt's bilateral hip IR to improve to 30 or better to show improving AROM to perform functional activities. STG Duration 4 Fish Boning Machine Feeder Goal (LTG) Pt's bilateral hip IR to improve to 35 or better to show improving AROM to perform functional activities. 07/03/23: R hip 30 deg, L 35 deg 05/15: L hip IR 25 deg, R hip IR 25 -- progressing toward goal LTG Duration 8 PARTIALLY MET Five Impairment Hip AROM Short Term Goal (STG) Pt's bilateral hip ABD to improve to 25 or better to show improving AROM to perform functional activities. STG Duration 4 Fish Boning Machine Feeder Goal (LTG) Pt's bilateral hip abd to improve to 30 or better to show improving AROM to perform functional activities. 07/03/23: b hip abd 30 deg 05/15: L hip 20deg, R hip 20 deg - progressing toward goal LTG Duration 8 MET Four Impairment Hip AROM Short Term Goal (STG) Pt's bilateral hip flexion to improve to 105 or better to show improving AROM to perform functional activities. STG Duration 4 Long-Term Goal (LTG) Pt's bilateral hip flexion to improve to 115 or better to show improving AROM to perform functional activities. 07/03/23: L 105 deg, R 120 deg LTG Duration 8 PROGRESSING Three Impairment Pain Short Term Goal (STG) Pt to report bilateral hip pain of 5/10 or better with activity to show resolving pain symptoms. STG Duration 4 Long-Term Goal (LTG) Pt to report bilateral hip pain of 2/10 or better with activity to show resolving pain symptoms. 07/03/23: Pt normally has max 2/10 pain with activity, usually 0/10 1110: 3/10 pain with activity - progressing toward goal LTG Duration 8 Two Impairment MMT Short Term Goal (STG) Pt's gross BLE MMT scores to improve to 4-/5 or better to show improving strength to improve ability to perform functional activities. 07/03/23: All hip motions are at least 4-/5 STG Duration 4 MET Fish Boning Machine Feeder Goal (LTG) Pt's gross BLE MMT scores to improve to 4+/10 or better to show improving strength to improve ability to perform functional activities. 07/03/23: Progressing toward goal 4/5 for B ext/add; flex 4 -/5; L abd abnd ER 4-/5; R ER/ add/abd; IR 4+/5 4/5 LTG Duration 8 PROGRESSING One Impairment Patient Questionnaire Short Term Goal (STG) Pt's LEFS score to improve to 25/80 or better to show improving subjective report of symptoms for an improved QOL. Long-Term Goal (LTG) Pt's LEFS score to improve to 45/80 or better to show improving subjective report of symptoms for an improved QOL. 05/15: LEFS 16/80 -- Progressing toward goal LTG Duration 8 Assessment Summary Assessment Continued with quad and glute strengthening while limiting compensations from pt's adductors. During STS, pt must be consistently cue to limit knee valgus, hip ADD, and to not use hands to push up from quads in order to maximize quad and glute activation. During step ups, pt demos improvement in pelvic control compared to previous sessions; however she continues to demo weak glute medius as seen with opposite hip drop during step up. Trialed 8 step up but unable to progress due to weakness and poor balance. Will continued to strengthen for improved stability during gait and balance. Trialed squat picking tech using 5# dumbbell from floor but pt is unable to maintain good squat form when resistance is added. Added seated hip ER to progress clam shell. Pt would also benefit from balance training in future sessions. Overall, pt continues to fatigue quickly, which limits activity in session april with quads/glutes/hip abd. She does not report pain during or after session, but is self- limiting regarding activity. PT and pt reviewed HEP for clarification of Pt's HEPs to limit repeats and fatigue. Pt would benefit from skilled PT to progressively load BLE strength to prevent compensations, improve BLE hip ROM, for gait/stair training, for balance training to decrease fall risk, improve tolerance for activity and to return to PLOF. Physical Therapy Plan Frequency and Duration Frequency of Treatment 2x/Week Duration of treatment (weeks) 8 Plan of Care Start Date 07/03/23 Plan of Care End Date 08/28/23 Therapeutic Interventions Therapeutic Interventions Balance Training,Gait Training ,Home Exercise Program,Joint Mobilizations,Manual Therapy, Neuromuscular Re-education, Patient/Caregiver Education, Self-Care/Home Management,Soft Tissue Mobilization,Taping, Therapeutic Activities, Therapeutic Exercises Modalities Cold Pack/Ice Massage,Electric Stimulation,Hot Packs Next Visit Focus/Plan Next Note Type Treatment Note Next Visit Plan Next session: STS with abd band, squat picking tech (no weight - AROM), hip ER (seated), LAQ, leg press, balance: tandem/EO /EC/foam Review and condense HEP (SL hip abd, STS, squat, march, side steps, hip IR, hip ER, lunge if possible) HEP review: Make sure doing most updated HEP. Focus on hip abd strengthening and stretching, carryover balance with mobility. Next tx: quad, glut strengthening and squat picking tech items for safety stability around home she finds challenging and unsafe still. Balance POC: Continue and progress hip stretching (figure 4, IR, hip ext) to improve ROM. Focus on BLE hip abd/glut/quad strengthening april during step ups, gait.
--- NOTE | 2023-07-15 13:42 | PT.OTN ---
Current Diagnoses Unilateral primary osteoarthritis, left hip (07/15/23) Physical Therapy Treatment Note PT-OP-A Visit Information Start: 04/01/23 14:20 Freq: Status: Active Protocol: Document 07/15/23 13:02 MB (Rec: 07/15/23 13:42 MB [id number]) Out-Patient Physical Therapy Visit Information Visit Information Visit Type Treatment Note Visit Start Time 13:02 Visit Stop Time 13:45 Total Visit Minutes 43 Visit Number 23 Number of APPLICATION INFRASTRUCTURE ENGINEER Visits 0 PT-OP-B Current Condition Start: 04/01/23 14:20 Freq: Status: Active Protocol: Document 05/15/23 16:00 NM (Rec: 05/15/23 16:21 NM [id number]) Current Condition History of Current Condition Onset Date 3 weeks ago Current Complaints left hip pain History of Current Condition Pt reports she had R FAUZIA ( posterior) in October and L FAUZIA (posterior) 3 weeks ago, but has significant pain in left hip and left knee. She is able to ascend/descend 5 steps with 2 SPC, she report she can walk 50 ft with 4WW before onset of pain. At times her pain refers to her hip, and sometimes down her left leg. She also reports feeling that the stress in her personal life may also be contributing to her symptoms, as she has noticed increased pain with stressful situations (i.e. people arguing, dogs barking, etc). Prior Treatments and Tests PT bilateral FAUZIA as above PT-OP-C Subjective Start: 04/01/23 14:20 Freq: Status: Active Protocol: Document 07/15/23 13:02 MB (Rec: 07/15/23 13:42 MB [id number]) OP-PT Subjective Patient Comments Patient Comments Pt states she has been trying to do the steps without holding onto the rail. She is doing band exercises. PT-OP-G Mobility & Gait Start: 04/01/23 14:20 Freq: Status: Active Protocol: Document 04/01/23 14:32 AB (Rec: 04/01/23 17:38 AB [id number]) OP Gait Assessment Assistive Devices Assistive Device 4 Wheeled Walker Gait Deviations General Gait Pattern Antalgic,Decreased Stride Length,Decreased Feet Clearance,Flexed Trunk Factors Limiting Gait Function Factors Limiting Gait Function Decreased Strength,Limited Range of Motion,Pain Comments Gait Comments Pt's gait mechanics improved by adjusting heigt of 4WW. She was educated on heel-to-toe gait pattern to normalize mechanics. PT-OP-J Posture/Palpation/Skin Start: 04/01/23 14:20 Freq: Status: Active Protocol: Document 04/01/23 17:38 AB (Rec: 04/01/23 17:40 AB [id number]) Skin Assessment Incisional Assessment Incision Appearance/Comments left posterior FAUZIA incision appears well healed without abnormal swelling or redness PT-OP-K Range of Motion Start: 04/01/23 14:20 Freq: Status: Active Protocol: Document 07/03/23 14:37 NM (Rec: 07/03/23 16:04 NM [id number]) Hip Goniometric Range of Motion Hip Left Active Testing Position supine, sitting Flexion w/Knee Flexed 105 Extension 0 Abduction 30 Internal Rotation 35 External Rotation 25 Comments 05/2023: flex: 105 deg abd: 20 deg IR: 20 deg ER: 15 deg Right Active Testing Position supine, sitting Flexion w/Knee Flexed 120 Extension 0 Abduction 30 Internal Rotation 30 External Rotation 25 Comments 05/2023: flex: 120 deg abd: 20 deg IR: 25 deg ER: 20 deg PT-OP-M Strength Start: 04/01/23 14:20 Freq: Status: Active Protocol: Document 07/03/23 14:37 NM (Rec: 07/03/23 16:04 NM [id number]) Hip Strength Hip Manual Muscle Testing Right Flexion (L2) 4- Good- Extension (S1) 4 Good Abduction 4 Good Adduction 4 Good External Rotation 4 Good Internal Rotation 4+ Good+ Left Flexion (L2) 4- Good- Extension (S1) 4 Good Abduction 4- Good- Adduction 4 Good External Rotation 4- Good- Internal Rotation 4+ Good+ PT-OP-Q Treatments Start: 04/01/23 14:20 Freq: Status: Active Protocol: Document 07/15/23 13:02 MB (Rec: 07/15/23 13:42 MB [id number]) Cardio Equipment Recumbent Elliptical (Jobbr) Duration (Minutes) 10 Other Level 3-7 to warm-up before leg exercises Therapeutic Exercises Sitting Exercises hip ER Sitting Exercise Name [place] TB ankles and blue ball between knees Comments Awkward, 5 alternating reps: sitting clam may be better Hip IR Sitting Exercise Name [place] TB ankles and blue ball between knees Comments Alternating reps of 10 LAQ Sitting Exercise Name [place] TB around ankles Comments Sitting in BIG chair: alternating LAQs Clamshells Sitting Exercise Name [place] TB above knees Comments Feet together and squeeze buns , 10 reps, 2 sets Standing Exercises STS Standing Exercise Name [place] band above knees, blue cushion in BiG chair Comments Arms crossed across chest Therapeutic Activity Therapeutic Activity Discussion about getting in and out of van Comments PT ed pt to get in backwards and van is not available and pt will try to have van available next treatment Gait Training Gait Activity stairs Comments One rail on the right ascend and on the left descend, step over step for balance control and strengthening. multiple steps and cues for squeezing glutes, several reps Side stepping ascend and descend with hands on right rail, step to step PT-OP-R Modalities Start: 04/01/23 14:20 Freq: Status: Active Protocol: Document 05/04/23 08:58 SP (Rec: 05/04/23 09:07 SP [id number]) Electric Stimulation Electric Stimulation Interferential Current (IFC) Body Location L hip Duration (Minutes) 8 Intensity 32 Combined With Heat/Cold Hot Pack PT-OP-T Assessment and Plan Start: 04/01/23 14:20 Freq: Status: Active Protocol: Document 07/15/23 13:02 MB (Rec: 07/15/23 13:42 MB [id number]) Physical Therapy Assessment Goals Eight Impairment Gait Short Term Goal (STG) Pt to walk household distances independently/mod independent with LRAD to show improving gait and tolerance to activity to return to PLOF. STG Duration 4 Half-Way Goal (LTG) Pt to walk community distances independently/mod independent with LRAD to show improving gait and tolerance to activity to return to PLOF. 05/15: Able to ambulate up to 170 ft (up to 1 block) independently with LRAD before requiring rest -- progressing toward goal LTG Duration 8 PROGRESSING Seven Impairment Hip AROM Short Term Goal (STG) Pt's bilateral hip ER to improve to 20 or better to show improving AROM to perform functional activities. STG Duration 4 Half-Way Goal (LTG) Pt's bilateral hip ER to improve to 25 or better to show improving AROM to perform functional activities. 07/03/23: B hip ER 25 deg 05/15: L hip ER 15 deg, R hip ER 20 deg --progressing toward goal LTG Duration 8 MET Six Impairment Hip AROM Short Term Goal (STG) Pt's bilateral hip IR to improve to 30 or better to show improving AROM to perform functional activities. STG Duration 4 Half-Way Goal (LTG) Pt's bilateral hip IR to improve to 35 or better to show improving AROM to perform functional activities. 07/03/23: R hip 30 deg, L 35 deg 05/15: L hip IR 25 deg, R hip IR 25 -- progressing toward goal LTG Duration 8 PARTIALLY MET Five Impairment Hip AROM Short Term Goal (STG) Pt's bilateral hip ABD to improve to 25 or better to show improving AROM to perform functional activities. STG Duration 4 Oven Dumper Goal (LTG) Pt's bilateral hip abd to improve to 30 or better to show improving AROM to perform functional activities. 07/03/23: b hip abd 30 deg 05/15: L hip 20deg, R hip 20 deg - progressing toward goal LTG Duration 8 MET Four Impairment Hip AROM Short Term Goal (STG) Pt's bilateral hip flexion to improve to 105 or better to show improving AROM to perform functional activities. STG Duration 4 Half-Way Goal (LTG) Pt's bilateral hip flexion to improve to 115 or better to show improving AROM to perform functional activities. 07/03/23: L 105 deg, R 120 deg LTG Duration 8 PROGRESSING Three Impairment Pain Short Term Goal (STG) Pt to report bilateral hip pain of 5/10 or better with activity to show resolving pain symptoms. STG Duration 4 Oven Dumper Goal (LTG) Pt to report bilateral hip pain of 2/10 or better with activity to show resolving pain symptoms. 07/03/23: Pt normally has max 2/10 pain with activity, usually 0/10 1110: 3/10 pain with activity - progressing toward goal LTG Duration 8 Two Impairment MMT Short Term Goal (STG) Pt's gross BLE MMT scores to improve to 4-/5 or better to show improving strength to improve ability to perform functional activities. 07/03/23: All hip motions are at least 4-/5 STG Duration 4 MET Half-Way Goal (LTG) Pt's gross BLE MMT scores to improve to 4+/10 or better to show improving strength to improve ability to perform functional activities. 07/03/23: Progressing toward goal 4/5 for B ext/add; flex 4 -/5; L abd abnd ER 4-/5; R ER/ add/abd; IR 4+/5 4/5 LTG Duration 8 PROGRESSING One Impairment Patient Questionnaire Short Term Goal (STG) Pt's LEFS score to improve to 25/80 or better to show improving subjective report of symptoms for an improved QOL. Oven Dumper Goal (LTG) Pt's LEFS score to improve to 45/80 or better to show improving subjective report of symptoms for an improved QOL. 05/15: LEFS 16/80 -- Progressing toward goal LTG Duration 8 Assessment Summary Assessment Pt has B hip weakness and shifts to the right for STS. She gets HO rather easily with exercise. Pt can do STS much better from higher surface of locked rollator and she would benefit from performing from firm chair between height of BIG chair and rollator. Physical Therapy Plan Frequency and Duration Frequency of Treatment 2x/Week Duration of treatment (weeks) 8 Plan of Care Start Date 07/03/23 Plan of Care End Date 08/28/23 Therapeutic Interventions Therapeutic Interventions Balance Training,Gait Training ,Home Exercise Program,Joint Mobilizations,Manual Therapy, Neuromuscular Re-education, Patient/Caregiver Education, Self-Care/Home Management,Soft Tissue Mobilization,Taping, Therapeutic Activities, Therapeutic Exercises Modalities Cold Pack/Ice Massage,Electric Stimulation,Hot Packs Next Visit Focus/Plan Next Note Type Treatment Note Next Visit Plan Per POC: STS with abd band, squat picker and packer (no weight- AROM ), hip ER (seated), LAQ, leg press, balance: tandem/EO/EC/ foam, van transfers
--- NOTE | 2023-07-24 13:45 | PT.OTN ---
Current Diagnoses Unilateral primary osteoarthritis, left hip (07/24/23) Physical Therapy Treatment Note PT-OP-A Visit Information Start: 04/01/23 14:20 Freq: Status: Active Protocol: Document 07/24/23 13:00 SP (Rec: 07/24/23 13:46 SP [id number]) Out-Patient Physical Therapy Visit Information Visit Information Visit Type Treatment Note Visit Start Time 13:00 Visit Stop Time 13:45 Total Visit Minutes 45 Visit Number 24 Number of HUMAN SERVICE TECHNICIAN Visits 1 Evaluation Information Evaluation Date 04/01/23 PT-OP-B Current Condition Start: 04/01/23 14:20 Freq: Status: Active Protocol: Document 05/15/23 16:00 NM (Rec: 05/15/23 16:21 NM [id number]) Current Condition History of Current Condition Onset Date 3 weeks ago Current Complaints left hip pain History of Current Condition Pt reports she had R FAUZIA ( posterior) in October and L FAUZIA (posterior) 3 weeks ago, but has significant pain in left hip and left knee. She is able to ascend/descend 5 steps with 2 SPC, she report she can walk 50 ft with 4WW before onset of pain. At times her pain refers to her hip, and sometimes down her left leg. She also reports feeling that the stress in her personal life may also be contributing to her symptoms, as she has noticed increased pain with stressful situations (i.e. people arguing, dogs barking, etc). Prior Treatments and Tests PT bilateral FAUZIA as above PT-OP-C Subjective Start: 04/01/23 14:20 Freq: Status: Active Protocol: Document 07/24/23 13:00 SP (Rec: 07/24/23 13:46 SP [id number]) OP-PT Subjective Patient Comments Patient Comments Pt reports felt good after last tx. Compliant with TB exercises reported. She wants to review in/out car, stairs and strengthening in sitting for hips. PT-OP-G Mobility & Gait Start: 04/01/23 14:20 Freq: Status: Active Protocol: Document 04/01/23 14:32 AB (Rec: 04/01/23 17:38 AB [id number]) OP Gait Assessment Assistive Devices Assistive Device 4 Wheeled Walker Gait Deviations General Gait Pattern Antalgic,Decreased Stride Length,Decreased Feet Clearance,Flexed Trunk Factors Limiting Gait Function Factors Limiting Gait Function Decreased Strength,Limited Range of Motion,Pain Comments Gait Comments Pt's gait mechanics improved by adjusting heigt of 4WW. She was educated on heel-to-toe gait pattern to normalize mechanics. PT-OP-J Posture/Palpation/Skin Start: 04/01/23 14:20 Freq: Status: Active Protocol: Document 04/01/23 17:38 AB (Rec: 04/01/23 17:40 AB [id number]) Skin Assessment Incisional Assessment Incision Appearance/Comments left posterior FAUZIA incision appears well healed without abnormal swelling or redness PT-OP-K Range of Motion Start: 04/01/23 14:20 Freq: Status: Active Protocol: Document 07/03/23 14:37 NM (Rec: 07/03/23 16:04 NM [id number]) Hip Goniometric Range of Motion Hip Left Active Testing Position supine, sitting Flexion w/Knee Flexed 105 Extension 0 Abduction 30 Internal Rotation 35 External Rotation 25 Comments 05/2023: flex: 105 deg abd: 20 deg IR: 20 deg ER: 15 deg Right Active Testing Position supine, sitting Flexion w/Knee Flexed 120 Extension 0 Abduction 30 Internal Rotation 30 External Rotation 25 Comments 05/2023: flex: 120 deg abd: 20 deg IR: 25 deg ER: 20 deg PT-OP-M Strength Start: 04/01/23 14:20 Freq: Status: Active Protocol: Document 07/03/23 14:37 NM (Rec: 07/03/23 16:04 NM [id number]) Hip Strength Hip Manual Muscle Testing Right Flexion (L2) 4- Good- Extension (S1) 4 Good Abduction 4 Good Adduction 4 Good External Rotation 4 Good Internal Rotation 4+ Good+ Left Flexion (L2) 4- Good- Extension (S1) 4 Good Abduction 4- Good- Adduction 4 Good External Rotation 4- Good- Internal Rotation 4+ Good+ PT-OP-Q Treatments Start: 04/01/23 14:20 Freq: Status: Active Protocol: Document 07/24/23 13:00 SP (Rec: 07/24/23 13:46 SP [id number]) Therapeutic Exercises Sitting Exercises hip ER Sitting Exercise Name review for HEP Resistance L1 TB around knees Equipment Used green ball between ankles Reps/Minutes 2x10 Comments cued individual Le each repetitive Hip IR Sitting Exercise Name review for HEP Resistance L1 TB around ankles Equipment Used green ball between knees Reps/Minutes 10 reps x2 each Comments Alternating reps of 10 LAQ Sitting Exercise Name HEP reviewed Side bilateral Resistance L1 TB around ankles Equipment Used BIG chair Reps/Minutes 2x10 reps Comments repetitive sit<> stands Sitting Exercise Name STS Side bilateral Resistance arms fwd for now for weight shift Equipment Used 17 BIG chair, arms fwd, TB #2 around knees Reps/Minutes 5x 2 Comments arm fwd, no momentum; cues for hip hinge, eccentric control, knees //abd TB Standing Exercises band walk Side bilateral Resistance Tb #2 teal at ankles Equipment Used HUMAN SERVICE TECHNICIAN within arms distance Reps/Minutes 10 ft x2 lap Comments fatiguing hip muscles, cued safety eccentric together, COG over full foot Therapeutic Activity Therapeutic Activity on/off floor Name assimulate in/out tub and on/ off sled Reps/Minutes 1 Comments BUEs on floor stand>quadruped cued controlled, then onto side challenge decreased hip ROM, pivot on bottom, sit>side >quadruped>1/2 knee cues need 1 ft front L> standing support of chair heavy through BUEs, Discussion about getting in and out of van Name performed in/out car Reps/Minutes 6 with car, 3 reps in clinic assimulate step/black elevated table Comments Ed pt to retro step back to car open door, use LUE on car door, RUE on seat use L>RLE stronger back step boost bottom onto seat then RLE on step>swing BLE to front seat, reverse BLE swing B feet on open door frame>RLE reaching for ground LUE door handle/RUE on seat/LUE on van foot runner for support, slide down RLE onto ground with cues for standing up glut fac trunk over RLE UEs push to come to stand and LLE next to RLE. Improved quad/glut fac into standing and retro scoot back into seat with reps. Gait Training Gait Activity stairs Level of Assistance close SBA Treatment Focus WBOS /c core/hipabd fac, trunk midline Comments PRN: One rail on the right ascend and on the left descend , cues for slower packing step over step for balance control and strengthening. Very stable light 1 UE on rail sliding, little trunk sway and tandem LE stepping at times, improves with cues contact rail/keep trunk closer to rail awareness. Self-Care/Home Management Treatment Education Patient Education Joint Protection,Pain Management,Posture,Safety Other Education Pt acquired sneakers with supported laces up. Improved stability, continued cues for //feet during standing activities. PT-OP-R Modalities Start: 04/01/23 14:20 Freq: Status: Active Protocol: Document 05/04/23 08:58 SP (Rec: 05/04/23 09:07 SP [id number]) Electric Stimulation Electric Stimulation Interferential Current (IFC) Body Location L hip Duration (Minutes) 8 Intensity 32 Combined With Heat/Cold Hot Pack PT-OP-T Assessment and Plan Start: 04/01/23 14:20 Freq: Status: Active Protocol: Document 07/24/23 13:00 SP (Rec: 07/24/23 13:46 SP [id number]) Physical Therapy Assessment Goals Eight Impairment Gait Short Term Goal (STG) Pt to walk household distances independently/mod independent with LRAD to show improving gait and tolerance to activity to return to PLOF. STG Duration 4 Intermediate Goal (LTG) Pt to walk community distances independently/mod independent with LRAD to show improving gait and tolerance to activity to return to PLOF. 1110: Able to ambulate up to 170 ft (up to 1 block) independently with LRAD before requiring rest -- progressing toward goal LTG Duration 8 PROGRESSING Seven Impairment Hip AROM Short Term Goal (STG) Pt's bilateral hip ER to improve to 20 or better to show improving AROM to perform functional activities. STG Duration 4 Intermediate Goal (LTG) Pt's bilateral hip ER to improve to 25 or better to show improving AROM to perform functional activities. 07/03/23: B hip ER 25 deg 05/15: L hip ER 15 deg, R hip ER 20 deg --progressing toward goal LTG Duration 8 MET Six Impairment Hip AROM Short Term Goal (STG) Pt's bilateral hip IR to improve to 30 or better to show improving AROM to perform functional activities. STG Duration 4 Intermediate Goal (LTG) Pt's bilateral hip IR to improve to 35 or better to show improving AROM to perform functional activities. 07/03/23: R hip 30 deg, L 35 deg 05/15: L hip IR 25 deg, R hip IR 25 -- progressing toward goal LTG Duration 8 PARTIALLY MET Five Impairment Hip AROM Short Term Goal (STG) Pt's bilateral hip ABD to improve to 25 or better to show improving AROM to perform functional activities. STG Duration 4 Railroad Operator Goal (LTG) Pt's bilateral hip abd to improve to 30 or better to show improving AROM to perform functional activities. 07/03/23: b hip abd 30 deg 05/15: L hip 20deg, R hip 20 deg - progressing toward goal LTG Duration 8 MET Four Impairment Hip AROM Short Term Goal (STG) Pt's bilateral hip flexion to improve to 105 or better to show improving AROM to perform functional activities. STG Duration 4 Intermediate Goal (LTG) Pt's bilateral hip flexion to improve to 115 or better to show improving AROM to perform functional activities. 07/03/23: L 105 deg, R 120 deg LTG Duration 8 PROGRESSING Three Impairment Pain Short Term Goal (STG) Pt to report bilateral hip pain of 5/10 or better with activity to show resolving pain symptoms. STG Duration 4 Railroad Operator Goal (LTG) Pt to report bilateral hip pain of 2/10 or better with activity to show resolving pain symptoms. 07/03/23: Pt normally has max 2/10 pain with activity, usually 0/10 05/15: 3/10 pain with activity - progressing toward goal LTG Duration 8 Two Impairment MMT Short Term Goal (STG) Pt's gross BLE MMT scores to improve to 4-/5 or better to show improving strength to improve ability to perform functional activities. 07/03/23: All hip motions are at least 4-/5 STG Duration 4 MET Railroad Operator Goal (LTG) Pt's gross BLE MMT scores to improve to 4+/10 or better to show improving strength to improve ability to perform functional activities. 07/03/23: Progressing toward goal 4/5 for B ext/add; flex 4 -/5; L abd abnd ER 4-/5; R ER/ add/abd; IR 4+/5 4/5 LTG Duration 8 PROGRESSING One Impairment Patient Questionnaire Short Term Goal (STG) Pt's LEFS score to improve to 25/80 or better to show improving subjective report of symptoms for an improved QOL. Railroad Operator Goal (LTG) Pt's LEFS score to improve to 45/80 or better to show improving subjective report of symptoms for an improved QOL. 05/15: LEFS 16/80 -- Progressing toward goal LTG Duration 8 Assessment Summary Assessment Pt reports good muscle tiring during ther ex. Improves in/ out van with cues/ed use BUE on seat/door retro in/out 1 LE on runner step, controlled landing on 1 LE wt shift trunk over stand LE to come to stable stand. Pt improves control ascend/descend stairs less UE slide contact rail, mod cues trunk near rail and gracefully glide wt shift into advance LE elongated posture glut drive asc/desc. Cues for elongated posturing and core for improved level hip stability gait end tx. Verbal reviewed continue with hip stretches for balance with strengthening, found needs to remember to do this feels good . Physical Therapy Plan Frequency and Duration Frequency of Treatment 2x/Week Duration of treatment (weeks) 8 Plan of Care Start Date 07/03/23 Plan of Care End Date 08/28/23 Therapeutic Interventions Therapeutic Interventions Balance Training,Gait Training ,Home Exercise Program,Joint Mobilizations,Manual Therapy, Neuromuscular Re-education, Patient/Caregiver Education, Self-Care/Home Management,Soft Tissue Mobilization,Taping, Therapeutic Activities, Therapeutic Exercises Modalities Cold Pack/Ice Massage,Electric Stimulation,Hot Packs Next Visit Focus/Plan Next Note Type Treatment Note Next Visit Plan Per POC: STS with abd band, squat fruit picker machine operator (no weight- AROM ), hip ER (seated), LAQ, leg press, balance: tandem/EO/EC/ foam, van transfers
--- NOTE | 2023-08-06 13:00 | PT.OTN ---
Current Diagnoses Unilateral primary osteoarthritis, left hip (08/06/23) Physical Therapy Treatment Note PT-OP-A Visit Information Start: 04/01/23 14:20 Freq: Status: Active Protocol: Document 08/06/23 12:16 SP (Rec: 08/06/23 13:27 SP [id number]) Out-Patient Physical Therapy Visit Information Visit Information Visit Type Treatment Note Visit Start Time 12:16 Visit Stop Time 13:00 Visit Number 26 Number of MID WIFE Visits 3 PT-OP-B Current Condition Start: 04/01/23 14:20 Freq: Status: Active Protocol: Document 05/15/23 16:00 NM (Rec: 05/15/23 16:21 NM [id number]) Current Condition History of Current Condition Onset Date 3 weeks ago Current Complaints left hip pain History of Current Condition Pt reports she had R FAUZIA ( posterior) in October and L FAUZIA (posterior) 3 weeks ago, but has significant pain in left hip and left knee. She is able to ascend/descend 5 steps with 2 SPC, she report she can walk 50 ft with 4WW before onset of pain. At times her pain refers to her hip, and sometimes down her left leg. She also reports feeling that the stress in her personal life may also be contributing to her symptoms, as she has noticed increased pain with stressful situations (i.e. people arguing, dogs barking, etc). Prior Treatments and Tests PT bilateral FAUZIA as above PT-OP-C Subjective Start: 04/01/23 14:20 Freq: Status: Active Protocol: Document 07/31/23 11:21 NBM (Rec: 07/31/23 12:15 NBM [id number]) OP-PT Subjective Patient Comments Patient Comments Pt reports she was sick last week and did not do ex's for 3 days and notices they're harder now. PT-OP-G Mobility & Gait Start: 04/01/23 14:20 Freq: Status: Active Protocol: Document 04/01/23 14:32 AB (Rec: 04/01/23 17:38 AB [id number]) OP Gait Assessment Assistive Devices Assistive Device 4 Wheeled Walker Gait Deviations General Gait Pattern Antalgic,Decreased Stride Length,Decreased Feet Clearance,Flexed Trunk Factors Limiting Gait Function Factors Limiting Gait Function Decreased Strength,Limited Range of Motion,Pain Comments Gait Comments Pt's gait mechanics improved by adjusting heigt of 4WW. She was educated on heel-to-toe gait pattern to normalize mechanics. PT-OP-J Posture/Palpation/Skin Start: 04/01/23 14:20 Freq: Status: Active Protocol: Document 04/01/23 17:38 AB (Rec: 04/01/23 17:40 AB [id number]) Skin Assessment Incisional Assessment Incision Appearance/Comments left posterior FAUZIA incision appears well healed without abnormal swelling or redness PT-OP-K Range of Motion Start: 04/01/23 14:20 Freq: Status: Active Protocol: Document 07/03/23 14:37 NM (Rec: 07/03/23 16:04 NM [id number]) Hip Goniometric Range of Motion Hip Left Active Testing Position supine, sitting Flexion w/Knee Flexed 105 Extension 0 Abduction 30 Internal Rotation 35 External Rotation 25 Comments 05/2023: flex: 105 deg abd: 20 deg IR: 20 deg ER: 15 deg Right Active Testing Position supine, sitting Flexion w/Knee Flexed 120 Extension 0 Abduction 30 Internal Rotation 30 External Rotation 25 Comments 05/2023: flex: 120 deg abd: 20 deg IR: 25 deg ER: 20 deg PT-OP-M Strength Start: 04/01/23 14:20 Freq: Status: Active Protocol: Document 07/03/23 14:37 NM (Rec: 07/03/23 16:04 NM [id number]) Hip Strength Hip Manual Muscle Testing Right Flexion (L2) 4- Good- Extension (S1) 4 Good Abduction 4 Good Adduction 4 Good External Rotation 4 Good Internal Rotation 4+ Good+ Left Flexion (L2) 4- Good- Extension (S1) 4 Good Abduction 4- Good- Adduction 4 Good External Rotation 4- Good- Internal Rotation 4+ Good+ PT-OP-Q Treatments Start: 04/01/23 14:20 Freq: Status: Active Protocol: Document 08/06/23 12:16 SP (Rec: 08/06/23 13:27 SP [id number]) Therapeutic Exercises Sitting Exercises hip ER Sitting Exercise Name review for HEP- tap front boone with opp heel Resistance AROM Reps/Minutes 2x12 Comments cued individual Le each repetitive Hip IR Resistance L4 TB around ankles Equipment Used blue ball between knees Reps/Minutes 10 reps each Comments repeated reps each side then alternate sets- good form sit<> stands Sitting Exercise Name STS Side bilateral Resistance arms fwd for now for weight shift Equipment Used 18.5 table, arms fwd, TB #2 around knees Reps/Minutes 5x 2 Comments arm fwd, no momentum; cues for hip hinge, eccentric control, knees //abd TB Standing Exercises Marching Standing Exercise Name w and wo band Side bilateral Resistance Lvl2 Tb around forefoot Equipment Used 1 UE on elevated table hip height Reps/Minutes banded marches 2x10 Comments MID WIFE hand target hip height Gait Training Gait Activity stairs Level of Assistance SBA Treatment Focus WBOS /c core/hipabd fac, trunk midline Comments cued arm swing: near rail asc, light 1 hand glide on rail desc Hurdles Description (neuro)squat ball cone transfer cross body between 6 hurdles, 5 reps x2 sets Level of Assistance CGA Surface stable, carpet Treatment Focus Maintaining balance while stepping over objects to simulate environment Comments Cued soft stepping, rhomboid fac stepping over jt, squat deeper /c wt shift between BLEs reach/hand picker cones and quad/glut fac full stand- improved stability into squats with reps demonstrated . Normal gait Description BIG walking Device Used 0 Level of Assistance I Distance/Duration 100ft x2 (clinic + ER hallway) Treatment Focus increase stride, KYE, heel toe , arm swing, stability Comments Cues for increase stride, arm swing, rojas KYE as needed. Improved upright posturing, almost equal stance time, less hip IR/Bfeet almost //. Neuro Re-Education Treatment Balance Activities incline/decline Details hill: 6 step, 2 set wedges, blue mat over Equipment 2 hurdles Comments 5%A > CGA, cued rhomboid fac, cued scap fac/elongate posturing and slower soft stepping improved stance time and SLS stability. socks /c dycem, shoes to unstable. PT-OP-R Modalities Start: 04/01/23 14:20 Freq: Status: Active Protocol: Document 05/04/23 08:58 SP (Rec: 05/04/23 09:07 SP [id number]) Electric Stimulation Electric Stimulation Interferential Current (IFC) Body Location L hip Duration (Minutes) 8 Intensity 32 Combined With Heat/Cold Hot Pack PT-OP-T Assessment and Plan Start: 04/01/23 14:20 Freq: Status: Active Protocol: Document 08/06/23 12:16 SP (Rec: 08/06/23 13:27 SP [id number]) Physical Therapy Assessment Goals Eight Impairment Gait Short Term Goal (STG) Pt to walk household distances independently/mod independent with LRAD to show improving gait and tolerance to activity to return to PLOF. STG Duration 4 Mechanic Welder Goal (LTG) Pt to walk community distances independently/mod independent with LRAD to show improving gait and tolerance to activity to return to PLOF. 05/15: Able to ambulate up to 170 ft (up to 1 block) independently with LRAD before requiring rest -- progressing toward goal LTG Duration 8 PROGRESSING Seven Impairment Hip AROM Short Term Goal (STG) Pt's bilateral hip ER to improve to 20 or better to show improving AROM to perform functional activities. STG Duration 4 Senior Care Goal (LTG) Pt's bilateral hip ER to improve to 25 or better to show improving AROM to perform functional activities. 07/03/23: B hip ER 25 deg 05/15: L hip ER 15 deg, R hip ER 20 deg --progressing toward goal LTG Duration 8 MET Six Impairment Hip AROM Short Term Goal (STG) Pt's bilateral hip IR to improve to 30 or better to show improving AROM to perform functional activities. STG Duration 4 Senior Care Goal (LTG) Pt's bilateral hip IR to improve to 35 or better to show improving AROM to perform functional activities. 07/03/23: R hip 30 deg, L 35 deg 05/15: L hip IR 25 deg, R hip IR 25 -- progressing toward goal LTG Duration 8 PARTIALLY MET Five Impairment Hip AROM Short Term Goal (STG) Pt's bilateral hip ABD to improve to 25 or better to show improving AROM to perform functional activities. STG Duration 4 Senior Care Goal (LTG) Pt's bilateral hip abd to improve to 30 or better to show improving AROM to perform functional activities. 07/03/23: b hip abd 30 deg 05/15: L hip 20deg, R hip 20 deg - progressing toward goal LTG Duration 8 MET Four Impairment Hip AROM Short Term Goal (STG) Pt's bilateral hip flexion to improve to 105 or better to show improving AROM to perform functional activities. STG Duration 4 Mechanic Welder Goal (LTG) Pt's bilateral hip flexion to improve to 115 or better to show improving AROM to perform functional activities. 07/03/23: L 105 deg, R 120 deg LTG Duration 8 PROGRESSING Three Impairment Pain Short Term Goal (STG) Pt to report bilateral hip pain of 5/10 or better with activity to show resolving pain symptoms. STG Duration 4 Mechanic Welder Goal (LTG) Pt to report bilateral hip pain of 2/10 or better with activity to show resolving pain symptoms. 07/03/23: Pt normally has max 2/10 pain with activity, usually 0/10 11/10: 3/10 pain with activity - progressing toward goal LTG Duration 8 Two Impairment MMT Short Term Goal (STG) Pt's gross BLE MMT scores to improve to 4-/5 or better to show improving strength to improve ability to perform functional activities. 07/03/23: All hip motions are at least 4-/5 STG Duration 4 MET Mechanic Welder Goal (LTG) Pt's gross BLE MMT scores to improve to 4+/10 or better to show improving strength to improve ability to perform functional activities. 07/03/23: Progressing toward goal 4/5 for B ext/add; flex 4 -/5; L abd abnd ER 4-/5; R ER/ add/abd; IR 4+/5 4/5 LTG Duration 8 PROGRESSING One Impairment Patient Questionnaire Short Term Goal (STG) Pt's LEFS score to improve to 25/80 or better to show improving subjective report of symptoms for an improved QOL. Senior Care Goal (LTG) Pt's LEFS score to improve to 45/80 or better to show improving subjective report of symptoms for an improved QOL. 05/15: LEFS 16/80 -- Progressing toward goal LTG Duration 8 Assessment Summary Assessment Pt reported adductor/ piriformis/glut tiring post change seated hip flex& ER boone taps vs TB clamshell. Improved endurance standing activities, only 1 seated rest during resisted strengthening and balance activities. She decrease light 1 light contact descend stairs end tx, demonstrated good glut/quad effort firing with cuing wt acceptance pelvis over foot ascending stairs no UE support with follow modelling arms swinging arms as last activity . I almost had my feet // with bigger walking and stairs . Encouraged bringing sneakers future tx, shoes to unstable. Physical Therapy Plan Frequency and Duration Frequency of Treatment 2x/Week Duration of treatment (weeks) 8 Plan of Care Start Date 07/03/23 Plan of Care End Date 08/28/23 Therapeutic Interventions Therapeutic Interventions Balance Training,Gait Training ,Home Exercise Program,Joint Mobilizations,Manual Therapy, Neuromuscular Re-education, Patient/Caregiver Education, Self-Care/Home Management,Soft Tissue Mobilization,Taping, Therapeutic Activities, Therapeutic Exercises Modalities Cold Pack/Ice Massage,Electric Stimulation,Hot Packs Next Visit Focus/Plan Next Note Type Treatment Note Next Visit Plan Per POC: STS with abd band, squat hand picker (no weight- AROM ), hip ER boone taps(seated), LAQ, leg press, balance: tandem/EO/EC/foam, ask van transfers or need review next tx.
--- NOTE | 2023-08-13 13:00 | PT.OTN ---
Current Diagnoses Unilateral primary osteoarthritis, left hip (08/13/23) Physical Therapy Treatment Note PT-OP-A Visit Information Start: 04/01/23 14:20 Freq: Status: Active Protocol: Document 08/13/23 12:20 SP (Rec: 08/13/23 13:03 SP [id number]) Out-Patient Physical Therapy Visit Information Visit Information Visit Type Treatment Note Visit Start Time 12:20 Visit Stop Time 13:00 Visit Number 27 Number of RECYCLING ASSISTANT Visits 4 Evaluation Information Evaluation Date 04/01/23 PT-OP-B Current Condition Start: 04/01/23 14:20 Freq: Status: Active Protocol: Document 05/15/23 16:00 NM (Rec: 05/15/23 16:21 NM [id number]) Current Condition History of Current Condition Onset Date 3 weeks ago Current Complaints left hip pain History of Current Condition Pt reports she had R FAUZIA ( posterior) in October and L FAUZIA (posterior) 3 weeks ago, but has significant pain in left hip and left knee. She is able to ascend/descend 5 steps with 2 SPC, she report she can walk 50 ft with 4WW before onset of pain. At times her pain refers to her hip, and sometimes down her left leg. She also reports feeling that the stress in her personal life may also be contributing to her symptoms, as she has noticed increased pain with stressful situations (i.e. people arguing, dogs barking, etc). Prior Treatments and Tests PT bilateral FAUZIA as above PT-OP-C Subjective Start: 04/01/23 14:20 Freq: Status: Active Protocol: Document 08/13/23 12:20 SP (Rec: 08/13/23 13:03 SP [id number]) OP-PT Subjective Patient Comments Patient Comments Pt reports and demonstrates squat and able to olive picker items off floor with better stability.She is able to cross leg without UE support. PT-OP-G Mobility & Gait Start: 04/01/23 14:20 Freq: Status: Active Protocol: Document 04/01/23 14:32 AB (Rec: 04/01/23 17:38 AB [id number]) OP Gait Assessment Assistive Devices Assistive Device 4 Wheeled Walker Gait Deviations General Gait Pattern Antalgic,Decreased Stride Length,Decreased Feet Clearance,Flexed Trunk Factors Limiting Gait Function Factors Limiting Gait Function Decreased Strength,Limited Range of Motion,Pain Comments Gait Comments Pt's gait mechanics improved by adjusting heigt of 4WW. She was educated on heel-to-toe gait pattern to normalize mechanics. PT-OP-J Posture/Palpation/Skin Start: 04/01/23 14:20 Freq: Status: Active Protocol: Document 04/01/23 17:38 AB (Rec: 04/01/23 17:40 AB [id number]) Skin Assessment Incisional Assessment Incision Appearance/Comments left posterior FAUZIA incision appears well healed without abnormal swelling or redness PT-OP-K Range of Motion Start: 04/01/23 14:20 Freq: Status: Active Protocol: Document 07/03/23 14:37 NM (Rec: 07/03/23 16:04 NM [id number]) Hip Goniometric Range of Motion Hip Left Active Testing Position supine, sitting Flexion w/Knee Flexed 105 Extension 0 Abduction 30 Internal Rotation 35 External Rotation 25 Comments 05/2023: flex: 105 deg abd: 20 deg IR: 20 deg ER: 15 deg Right Active Testing Position supine, sitting Flexion w/Knee Flexed 120 Extension 0 Abduction 30 Internal Rotation 30 External Rotation 25 Comments 05/2023: flex: 120 deg abd: 20 deg IR: 25 deg ER: 20 deg PT-OP-M Strength Start: 04/01/23 14:20 Freq: Status: Active Protocol: Document 07/03/23 14:37 NM (Rec: 07/03/23 16:04 NM [id number]) Hip Strength Hip Manual Muscle Testing Right Flexion (L2) 4- Good- Extension (S1) 4 Good Abduction 4 Good Adduction 4 Good External Rotation 4 Good Internal Rotation 4+ Good+ Left Flexion (L2) 4- Good- Extension (S1) 4 Good Abduction 4- Good- Adduction 4 Good External Rotation 4- Good- Internal Rotation 4+ Good+ PT-OP-Q Treatments Start: 04/01/23 14:20 Freq: Status: Active Protocol: Document 08/13/23 12:20 SP (Rec: 08/13/23 13:03 SP [id number]) Therapeutic Exercises Sitting Exercises hip ER Sitting Exercise Name review for HEP- tap front boone with opp heel Resistance AROM Reps/Minutes 2x12 Comments cued individual Le each repetitive up boone Standing Exercises STS Resistance AROM Equipment Used mesh chair Reps/Minutes 10 reps, 1x 8sec hold midrange Comments Arms crossed across chest Squat Reps/Minutes 3 reps Comments olive picker tissue off floor band walk Standing Exercise Name lateral, f/b Side bilateral Resistance Tb #[address] [place] at ankles Equipment Used near //bars as needed Reps/Minutes 10 ft x3 laps each direction Comments fatiguing hip muscles, cued trail LE clearance/eccentric return Marching Side bilateral Resistance Lvl2 Tb around forefoot Equipment Used no UE support Reps/Minutes 2x15 Comments cued increased KYE Gait Training Gait Activity stairs Level of Assistance SBA Distance/Duration MAP bld stairs, 1/3 inpt staircase Treatment Focus WBOS /c core/hipabd fac, trunk midline Comments cued arm swing: near rail asc light contact last 26-28 steps due to LE tiring, light 1 to no hand glide on rail desc 30% time, cued slower pacing increase KYE allow stability lessen UE support. Normal gait Description BIG walking Device Used 0 Level of Assistance I Distance/Duration 500 ft+ through hospital MAP Bldg to cafeteria and back Treatment Focus increase stride, wider/neutral KYE, heel toe, arm swing, stability Comments Cues for increase stride, arm swing, rojas KYE as needed. Improved upright posturing, almost equal stance time, less hip IR/Bfeet almost //. Neuro Re-Education Treatment Balance Activities incline/decline Details obstacle course Equipment 2 bal beams, pods, foam ovals, 4 step Comments 5%A > CGA, cued rhomboid fac, cued scap fac/elongate posturing and slower soft stepping improved stance time and SLS stability. Able to walk bal beam end tx 5% A. PT-OP-R Modalities Start: 04/01/23 14:20 Freq: Status: Active Protocol: Document 05/04/23 08:58 SP (Rec: 05/04/23 09:07 SP [id number]) Electric Stimulation Electric Stimulation Interferential Current (IFC) Body Location L hip Duration (Minutes) 8 Intensity 32 Combined With Heat/Cold Hot Pack PT-OP-T Assessment and Plan Start: 04/01/23 14:20 Freq: Status: Active Protocol: Document 08/13/23 12:20 SP (Rec: 08/13/23 13:03 SP [id number]) Physical Therapy Assessment Goals Eight Impairment Gait Short Term Goal (STG) Pt to walk household distances independently/mod independent with LRAD to show improving gait and tolerance to activity to return to PLOF. STG Duration 4 Hook And Eye Attacher Goal (LTG) Pt to walk community distances independently/mod independent with LRAD to show improving gait and tolerance to activity to return to PLOF. 05/15: Able to ambulate up to 170 ft (up to 1 block) independently with LRAD before requiring rest -- progressing toward goal LTG Duration 8 PROGRESSING Seven Impairment Hip AROM Short Term Goal (STG) Pt's bilateral hip ER to improve to 20 or better to show improving AROM to perform functional activities. STG Duration 4 Hook And Eye Attacher Goal (LTG) Pt's bilateral hip ER to improve to 25 or better to show improving AROM to perform functional activities. 07/03/23: B hip ER 25 deg 05/15: L hip ER 15 deg, R hip ER 20 deg --progressing toward goal LTG Duration 8 MET Six Impairment Hip AROM Short Term Goal (STG) Pt's bilateral hip IR to improve to 30 or better to show improving AROM to perform functional activities. STG Duration 4 Hook And Eye Attacher Goal (LTG) Pt's bilateral hip IR to improve to 35 or better to show improving AROM to perform functional activities. 07/03/23: R hip 30 deg, L 35 deg 05/15: L hip IR 25 deg, R hip IR 25 -- progressing toward goal LTG Duration 8 PARTIALLY MET Five Impairment Hip AROM Short Term Goal (STG) Pt's bilateral hip ABD to improve to 25 or better to show improving AROM to perform functional activities. STG Duration 4 Hook And Eye Attacher Goal (LTG) Pt's bilateral hip abd to improve to 30 or better to show improving AROM to perform functional activities. 07/03/23: b hip abd 30 deg 05/15: L hip 20deg, R hip 20 deg - progressing toward goal LTG Duration 8 MET Four Impairment Hip AROM Short Term Goal (STG) Pt's bilateral hip flexion to improve to 105 or better to show improving AROM to perform functional activities. STG Duration 4 Fci Goal (LTG) Pt's bilateral hip flexion to improve to 115 or better to show improving AROM to perform functional activities. 07/03/23: L 105 deg, R 120 deg LTG Duration 8 PROGRESSING Three Impairment Pain Short Term Goal (STG) Pt to report bilateral hip pain of 5/10 or better with activity to show resolving pain symptoms. STG Duration 4 Fci Goal (LTG) Pt to report bilateral hip pain of 2/10 or better with activity to show resolving pain symptoms. 07/03/23: Pt normally has max 2/10 pain with activity, usually 0/10 1110: 3/10 pain with activity - progressing toward goal LTG Duration 8 Two Impairment MMT Short Term Goal (STG) Pt's gross BLE MMT scores to improve to 4-/5 or better to show improving strength to improve ability to perform functional activities. 07/03/23: All hip motions are at least 4-/5 STG Duration 4 MET Hook And Eye Attacher Goal (LTG) Pt's gross BLE MMT scores to improve to 4+/10 or better to show improving strength to improve ability to perform functional activities. 07/03/23: Progressing toward goal 4/5 for B ext/add; flex 4 -/5; L abd abnd ER 4-/5; R ER/ add/abd; IR 4+/5 4/5 LTG Duration 8 PROGRESSING One Impairment Patient Questionnaire Short Term Goal (STG) Pt's LEFS score to improve to 25/80 or better to show improving subjective report of symptoms for an improved QOL. Fci Goal (LTG) Pt's LEFS score to improve to 45/80 or better to show improving subjective report of symptoms for an improved QOL. 05/15: LEFS 16/80 -- Progressing toward goal LTG Duration 8 Assessment Summary Assessment Pt good demonstrated squat olive picker items off floor x3 consecutive reps. Pt reports hip tiring LE lift to opp boone and now able to cross knee without UE support. She improves stability and strength during standing resisted exercises without seated rest between exercises. Encouraged BIG arm swing during gait activities longer distances indoors and stair mgt cues slower pacing increase KYE descending allow lessened UE support. Physical Therapy Plan Frequency and Duration Frequency of Treatment 2x/Week Duration of treatment (weeks) 8 Plan of Care Start Date 07/03/23 Plan of Care End Date 08/28/23 Next Visit Focus/Plan Next Note Type Treatment Note Next Visit Plan CHeck HEP and continue and progress uneven pavement walking outside and increase distance. Per POC: STS with abd band, squat olive picker (no weight- AROM ), hip ER boone taps(seated), LAQ, leg press, balance: tandem/EO/EC/foam, ask van transfers or need review next tx.
--- NOTE | 2023-08-17 15:57 | PT-OP ANOTE ---
PT called and left for pt at 1557 as pt was supposed to have an appt today, couldn't make it, and swtiched with her instead. Reminded pt of upcoming visit tomorrow 08/18 at 1030 then follow up on 08/21 at 1430. PT reminded pt that POC will be ending soon and pt needs to see PT
--- NOTE | 2023-08-18 16:38 | PT.OTN ---
Current Diagnoses Unilateral primary osteoarthritis, left hip (08/18/23) Physical Therapy Treatment Note PT-OP-A Visit Information Start: 04/01/23 14:20 Freq: Status: Active Protocol: Document 08/18/23 10:32 NM (Rec: 08/18/23 11:39 NM [id number]) Out-Patient Physical Therapy Visit Information Visit Information Visit Type Progress Note Visit Start Time 10:33 Visit Stop Time 11:15 Visit Number [id number] Evaluation Information Evaluation Date 04/01/23 PT-OP-B Current Condition Start: 04/01/23 14:20 Freq: Status: Active Protocol: Document 05/15/23 16:00 NM (Rec: 05/15/23 16:21 NM [id number]) Current Condition History of Current Condition Onset Date 3 weeks ago Current Complaints left hip pain History of Current Condition Pt reports she had R FAUZIA ( posterior) in October and L FAUZIA (posterior) 3 weeks ago, but has significant pain in left hip and left knee. She is able to ascend/descend 5 steps with 2 SPC, she report she can walk 50 ft with 4WW before onset of pain. At times her pain refers to her hip, and sometimes down her left leg. She also reports feeling that the stress in her personal life may also be contributing to her symptoms, as she has noticed increased pain with stressful situations (i.e. people arguing, dogs barking, etc). Prior Treatments and Tests PT bilateral FAUZIA as above PT-OP-C Subjective Start: 04/01/23 14:20 Freq: Status: Active Protocol: Document 08/18/23 10:32 NM (Rec: 08/18/23 11:39 NM [id number]) OP-PT Subjective Patient Comments Patient Comments Pt reports that she has had 2 instances adductor pain when getting in to car on drivers side but this doesn't happen often. She is able to orange picking supervisor objects from the floor without assistance. Reports prn difficulty with donning shoes, but able to do. She has been attending [facility] 2x/wk for her balance. She states that it is helping a lot. Reports minimal compliance with HEP. PT-OP-G Mobility & Gait Start: 04/01/23 14:20 Freq: Status: Active Protocol: Document 04/01/23 14:32 AB (Rec: 04/01/23 17:38 AB [id number]) OP Gait Assessment Assistive Devices Assistive Device 4 Wheeled Walker Gait Deviations General Gait Pattern Antalgic,Decreased Stride Length,Decreased Feet Clearance,Flexed Trunk Factors Limiting Gait Function Factors Limiting Gait Function Decreased Strength,Limited Range of Motion,Pain Comments Gait Comments Pt's gait mechanics improved by adjusting heigt of 4WW. She was educated on heel-to-toe gait pattern to normalize mechanics. PT-OP-J Posture/Palpation/Skin Start: 04/01/23 14:20 Freq: Status: Active Protocol: Document 04/01/23 17:38 AB (Rec: 04/01/23 17:40 AB [id number]) Skin Assessment Incisional Assessment Incision Appearance/Comments left posterior FAUZIA incision appears well healed without abnormal swelling or redness PT-OP-K Range of Motion Start: 04/01/23 14:20 Freq: Status: Active Protocol: Document 08/18/23 10:32 NM (Rec: 08/18/23 16:24 NM [id number]) Hip Goniometric Range of Motion Hip Left Active Testing Position supine, sitting Flexion w/Knee Flexed 105 Extension 0 Abduction 30 Internal Rotation 35 External Rotation 25 Comments 06/17/24: hip ER 25 deg, hip IR 35 deg, hip flexion 110 deg 05/2023: flex: 105 deg abd: 20 deg IR: 20 deg ER: 15 deg Right Active Testing Position supine, sitting Flexion w/Knee Flexed 120 Extension 0 Abduction 30 Internal Rotation 30 External Rotation 25 Comments 06/17/24: hip ER 25 deg, hip IR 35 deg, hip flexion 110 deg 05/2023: flex: 120 deg abd: 20 deg IR: 25 deg ER: 20 deg PT-OP-M Strength Start: 04/01/23 14:20 Freq: Status: Active Protocol: Document 08/18/23 10:32 NM (Rec: 08/18/23 16:24 NM [id number]) Hip Strength Hip Manual Muscle Testing Right Flexion (L2) 4- Good- Extension (S1) 4 Good Abduction 4 Good Adduction 4 Good External Rotation 4 Good Internal Rotation 4+ Good+ Comments 08/18/23: 4+/5 for all Left Flexion (L2) 4- Good- Extension (S1) 4 Good Abduction 4- Good- Adduction 4 Good External Rotation 4- Good- Internal Rotation 4+ Good+ Comments 08/18/23: 4+/5 for all PT-OP-Q Treatments Start: 04/01/23 14:20 Freq: Status: Active Protocol: Document 08/18/23 10:32 NM (Rec: 08/18/23 11:39 NM [id number]) Therapeutic Exercises Sitting Exercises hip ER Sitting Exercise Name tap front boone with opp heel Side bilateral Resistance AROM Equipment Used demos hip flex to assist with max ROM ER,can perform w less ER w/o flex Reps/Minutes 1x10 AROM, 1x10 with light blue tb Comments cued individual Le each repetitive up boone Clamshells Sitting Exercise Name seated glute med activation Side bilateral Resistance lvl 2 teal tb Equipment Used seated Reps/Minutes 1x30 Standing Exercises STS Side bilateral Resistance AROM Equipment Used plinth <18 Reps/Minutes 10 reps Comments Arms crossed across chest; cued prn ant weight shift Squat Standing Exercise Name 1. squat to p/u from floor, 2. squat hold Side bilateral Resistance teal tb around thighs Equipment Used elevated plinth Reps/Minutes 1. 1x5 AROM, 2. 1x10 with 5 hold from table Comments cued for hip hinge; improved form but reports fatiguing Marching Standing Exercise Name w and w/o band Side bilateral Resistance Lvl2 Tb around forefoot Equipment Used no UE support Reps/Minutes 2x10 ea Comments cued increased KYE Gait Training Gait Activity stairs Device Used none Level of Assistance SBA Distance/Duration MAP bld stairs (26/28 steps) Treatment Focus WBOS /c core/hip abd fac, trunk midline Comments Cued arm swing, no UE support on rails. Demos prn opp hip drop with stepping onto step. Uses reciprocal gait pattern, no LOB. Normal gait Description normal gait, BIGGER walking Device Used none Level of Assistance I Distance/Duration 500 ft throughout hospital halls, clinic Treatment Focus increase stride, wider/neutral KYE, heel toe, arm swing, stability Comments Cues for wider KYE prn, no crossing LE with stance. Improved upright posturing, almost equal stance time,B feet almost // without cueing. Self-Care/Home Management Treatment Education Patient Education Body Mechanics,Fall Risk,Home Exercise Program,Safety Other Education 7 minutes: PT and pt discussed pt's current HEP, planning to review next session. Educated on importance of performing HEP for strengthening without compensations to make exercises easier. PT and pt discussed discharge vs continuing POC as POC is ending soon as pt has met PT goals. PT and pt agreed on discharge after next session with emphasis on BLE strengthening, maintenance program 3x/wk. Discussed pt continuing with [employer] classes and joining other exercise groups, e.g. [employer] for community support and exercise. Pt verbalizes understanding. PT-OP-R Modalities Start: 04/01/23 14:20 Freq: Status: Active Protocol: Document 05/04/23 08:58 SP (Rec: 05/04/23 09:07 SP [id number]) Electric Stimulation Electric Stimulation Interferential Current (IFC) Body Location L hip Duration (Minutes) 8 Intensity 32 Combined With Heat/Cold Hot Pack PT-OP-T Assessment and Plan Start: 04/01/23 14:20 Freq: Status: Active Protocol: Document 08/18/23 10:32 NM (Rec: 08/18/23 11:39 NM [id number]) Physical Therapy Assessment Goals Eight Impairment Gait Short Term Goal (STG) Pt to walk household distances independently/mod independent with LRAD to show improving gait and tolerance to activity to return to PLOF. STG Duration 4 Mcc Goal (LTG) Pt to walk community distances independently/mod independent with LRAD to show improving gait and tolerance to activity to return to PLOF. 08/18/23: Pt able to ambulate without AD, using nml gait mechanics with prn cues to prevent hip add during stance x500+ ft on different surfaces 05/15: Able to ambulate up to 170 ft (up to 1 block) independently with LRAD before requiring rest -- progressing toward goal LTG Duration 8 MET Seven Impairment Hip AROM Short Term Goal (STG) Pt's bilateral hip ER to improve to 20 or better to show improving AROM to perform functional activities. STG Duration 4 Asphalt Raker Goal (LTG) Pt's bilateral hip ER to improve to 25 or better to show improving AROM to perform functional activities. 08/17/23: 25 deg B hip ER 07/03/23: B hip ER 25 deg 05/15: L hip ER 15 deg, R hip ER 20 deg --progressing toward goal LTG Duration 8 MET Six Impairment Hip AROM Short Term Goal (STG) Pt's bilateral hip IR to improve to 30 or better to show improving AROM to perform functional activities. STG Duration 4 MET Asphalt Raker Goal (LTG) Pt's bilateral hip IR to improve to 35 or better to show improving AROM to perform functional activities. 08/17/23: B hip 35 deg ea 07/03/23: R hip 30 deg, L 35 deg 05/15: L hip IR 25 deg, R hip IR 25 -- progressing toward goal LTG Duration 8 MET Five Impairment Hip AROM Short Term Goal (STG) Pt's bilateral hip ABD to improve to 25 or better to show improving AROM to perform functional activities. STG Duration 4 Mcc Goal (LTG) Pt's bilateral hip abd to improve to 30 or better to show improving AROM to perform functional activities. 07/03/23: b hip abd 30 deg 05/15: L hip 20deg, R hip 20 deg - progressing toward goal LTG Duration 8 MET Four Impairment Hip AROM Short Term Goal (STG) Pt's bilateral hip flexion to improve to 105 or better to show improving AROM to perform functional activities. STG Duration 4 Mcc Goal (LTG) Pt's bilateral hip flexion to improve to 115 or better to show improving AROM to perform functional activities. 08/18/23: 110 ea in supine, able to maintain 115 functionally in standing 07/03/23: L 105 deg, R 120 deg LTG Duration 8 PARTIALLY MET Three Impairment Pain Short Term Goal (STG) Pt to report bilateral hip pain of 5/10 or better with activity to show resolving pain symptoms. STG Duration 4 Asphalt Raker Goal (LTG) Pt to report bilateral hip pain of 2/10 or better with activity to show resolving pain symptoms. 08/18/23: 1/10 pain prn with activity or laying on hip (not consistent), 0/10 usually 07/03/23: Pt normally has max 2/10 pain with activity, usually 0/10 11/10: 3/10 pain with activity - progressing toward goal LTG Duration 8 MET Two Impairment MMT Short Term Goal (STG) Pt's gross BLE MMT scores to improve to 4-/5 or better to show improving strength to improve ability to perform functional activities. 07/03/23: All hip motions are at least 4-/5 STG Duration 4 MET Mcc Goal (LTG) Pt's gross BLE MMT scores to improve to 4+/10 or better to show improving strength to improve ability to perform functional activities. 08/18/23: 4+/5 for all with 5 isometric hold for max muscle recruitment 07/03/23: Progressing toward goal 4/5 for B ext/add; flex 4 -/5; L abd abnd ER 4-/5; R ER/ add/abd; IR 4+/5 4/5 LTG Duration 8 MET One Impairment Patient Questionnaire Short Term Goal (STG) Pt's LEFS score to improve to 25/80 or better to show improving subjective report of symptoms for an improved QOL. Asphalt Raker Goal (LTG) Pt's LEFS score to improve to 45/80 or better to show improving subjective report of symptoms for an improved QOL. 08/18/23: LEFS 45/80 05/15: LEFS 1680 -- Progressing toward goal LTG Duration 8 MET Progress Towards Goals Progress Towards Goals Progressing Toward Goals,Slow Progress due to Activity Tolerance,Goals Met Progress Comments Pt has met all goals with partially met hip flex to 115 deg, consistently 110 deg in supine Assessment Summary Assessment Pt tolerated session well and demos improved tolerance for activity. Continues to require prn breaks due to fatigue. Overall, pt demos improvements in sit to stand without UE use, stairs without UE use, gait, and squats to orange picking supervisor objects. Pt with good hip hinge to orange picking supervisor objects from floor, during sit to stand squat holds. Requires cueing for pt to perform without compensations and for good effort. Demos improved balance and form when glute medius is facilitated using band around thighs. Pt with improved pelvic stability and balance during stairs. Requires cueing to not use UE support; however, able to perform stairs safely and without compensation. Pt is attending [facility] classes for balance, which she reports are helpful. PT educated pt on additional local classes to maintain BLE strength, including [employer] or [employer]. PT and pt discussed POC and determined discharge to independent exercise with maintenance program after next session as pt has met pr partially met all goals. Pt agrees and verbalizes understanding. Pt has been seen in PT s/p L FUAZIA in March 2023 for BLE strengthening and mobility. Pt wanting to transition down to 1x/wk; however, pt's POC is ending and pt has met remaining goals. PT and pt discussed discharge to independent exercise vs continuing POC as pt is able to perform ADLs with limited difficulty and without pain. Educated pt on 3x/wk maintenance program after discharge and joining [employer] or other class in addition to pt already attending [facility] for further strengthening. PT and pt in agreement. Physical Therapy Plan Frequency and Duration Frequency of Treatment 2x/Week Duration of treatment (weeks) 8 Plan of Care Start Date 07/03/23 Plan of Care End Date 08/28/23 Therapeutic Interventions Therapeutic Interventions Balance Training,Gait Training ,Home Exercise Program,Joint Mobilizations,Manual Therapy, Neuromuscular Re-education, Patient/Caregiver Education, Self-Care/Home Management,Soft Tissue Mobilization,Taping, Therapeutic Activities, Therapeutic Exercises Modalities Cold Pack/Ice Massage,Electric Stimulation,Hot Packs Next Visit Focus/Plan Next Note Type Discharge Summary Next Visit Plan Check/finalize HEP and continue and progress uneven pavement walking outside and increase distance. Per POC: STS with abd band, squat orange picking supervisor (no weight- AROM ), hip ER boone taps(seated), LAQ, leg press, balance: tandem/EO/EC/foam, ask van transfers or need review next tx.
--- NOTE | 2023-08-21 15:59 | PT.OTN ---
Current Diagnoses Unilateral primary osteoarthritis, left hip (08/21/23) Physical Therapy Treatment Note PT-OP-A Visit Information Start: 04/01/23 14:20 Freq: Status: Active Protocol: Document 08/21/23 14:34 NM (Rec: 08/21/23 15:59 NM [id number]) Out-Patient Physical Therapy Visit Information Visit Information Visit Type Discharge Summary Visit Start Time 14:33 Visit Stop Time 15:18 Visit Number [id number] PT-OP-B Current Condition Start: 04/01/23 14:20 Freq: Status: Active Protocol: Document 05/15/23 16:00 NM (Rec: 05/15/23 16:21 NM [id number]) Current Condition History of Current Condition Onset Date 3 weeks ago Current Complaints left hip pain History of Current Condition Pt reports she had R FAUZIA ( posterior) in October and L FAUZIA (posterior) 3 weeks ago, but has significant pain in left hip and left knee. She is able to ascend/descend 5 steps with 2 SPC, she report she can walk 50 ft with 4WW before onset of pain. At times her pain refers to her hip, and sometimes down her left leg. She also reports feeling that the stress in her personal life may also be contributing to her symptoms, as she has noticed increased pain with stressful situations (i.e. people arguing, dogs barking, etc). Prior Treatments and Tests PT bilateral FAUZIA as above PT-OP-C Subjective Start: 04/01/23 14:20 Freq: Status: Active Protocol: Document 08/21/23 14:34 NM (Rec: 08/21/23 15:59 NM [id number]) OP-PT Subjective Patient Comments Patient Comments Pt reports that she is doing well today. She did not bring her low car because they have to case picker her granddaughters to take to gym. She [place] sore [place] [facility]. Pt states that she has had a few instances of difficulty getting in/out of tub with at 1 instance of LOB backward on their window. PT-OP-G Mobility & Gait Start: 04/01/23 14:20 Freq: Status: Active Protocol: Document 04/01/23 14:32 AB (Rec: 04/01/23 17:38 AB [id number]) OP Gait Assessment Assistive Devices Assistive Device 4 Wheeled Walker Gait Deviations General Gait Pattern Antalgic,Decreased Stride Length,Decreased Feet Clearance,Flexed Trunk Factors Limiting Gait Function Factors Limiting Gait Function Decreased Strength,Limited Range of Motion,Pain Comments Gait Comments Pt's gait mechanics improved by adjusting heigt of 4WW. She was educated on heel-to-toe gait pattern to normalize mechanics. PT-OP-J Posture/Palpation/Skin Start: 04/01/23 14:20 Freq: Status: Active Protocol: Document 04/01/23 17:38 AB (Rec: 04/01/23 17:40 AB [id number]) Skin Assessment Incisional Assessment Incision Appearance/Comments left posterior FAUZIA incision appears well healed without abnormal swelling or redness PT-OP-K Range of Motion Start: 04/01/23 14:20 Freq: Status: Active Protocol: Document 08/18/23 10:32 NM (Rec: 08/18/23 16:24 NM [id number]) Hip Goniometric Range of Motion Hip Left Active Testing Position supine, sitting Flexion w/Knee Flexed 105 Extension 0 Abduction 30 Internal Rotation 35 External Rotation 25 Comments 06/17/24: hip ER 25 deg, hip IR 35 deg, hip flexion 110 deg 05/2023: flex: 105 deg abd: 20 deg IR: 20 deg ER: 15 deg Right Active Testing Position supine, sitting Flexion w/Knee Flexed 120 Extension 0 Abduction 30 Internal Rotation 30 External Rotation 25 Comments 06/17/24: hip ER 25 deg, hip IR 35 deg, hip flexion 110 deg 05/2023: flex: 120 deg abd: 20 deg IR: 25 deg ER: 20 deg PT-OP-M Strength Start: 04/01/23 14:20 Freq: Status: Active Protocol: Document 08/18/23 10:32 NM (Rec: 08/18/23 16:24 NM [id number]) Hip Strength Hip Manual Muscle Testing Right Flexion (L2) 4- Good- Extension (S1) 4 Good Abduction 4 Good Adduction 4 Good External Rotation 4 Good Internal Rotation 4+ Good+ Comments 08/18/23: 4+/5 for all Left Flexion (L2) 4- Good- Extension (S1) 4 Good Abduction 4- Good- Adduction 4 Good External Rotation 4- Good- Internal Rotation 4+ Good+ Comments 08/18/23: 4+/5 for all PT-OP-Q Treatments Start: 04/01/23 14:20 Freq: Status: Active Protocol: Document 08/21/23 14:34 NM (Rec: 08/21/23 15:59 NM [id number]) Therapeutic Exercises Supine Exercises willian stretch Supine Exercise Name reviewed for HEP but did not perform Sitting Exercises Clamshells Sitting Exercise Name seated glute med activation Side bilateral Resistance lvl 2 teal tb around thighs Equipment Used seated Reps/Minutes 3x10 Standing Exercises Hurdles Standing Exercise Name 1. lateral stepping over hurdles, 2. with squat p/u from floor Side bilateral Resistance 5# tball Equipment Used 6 hurdles Reps/Minutes 1. 3 sets x10 ft ea, 2. 3 sets x 10 ft with 6 squats ea direction Comments cued for hip hinge with squat vs trunk flexion fwd, improved with reps STS Side bilateral Resistance lvl 2 teal band around thighs Equipment Used from mesh chair Reps/Minutes 2x5 reps Comments arms across chest stationary lunges Standing Exercise Name fwd lunges Side bilateral Equipment Used hand support on ballet bar Reps/Minutes 2x10 AROM Comments cued for max knee bedn as able , not at floor; hip hinge band walk Standing Exercise Name lateral, fwd bwd Side bilateral Resistance gambell green tb at ankles Equipment Used no UE support Reps/Minutes 20 ft x 2 sets ea Comments fatiguing but improved trailing/leading foot clearance Therapeutic Activity Therapeutic Activity Discussion/Simulation in/out of tub Name pt with step into tub, then stepping over Reps/Minutes 1x3 ea Comments Recommended shower chair for ease due to pt difficulty with height of tub (tall porcelain sides). Pt sitting on chair bwd, then slowly turning so BLE are next to tub. Pt turning and lifting BLE into tubs, BUE to assist prn. Pt cued for execution initially but decreased with reps. Easier L>R on/off floor Reps/Minutes 1x5 ea Comments To mat via 1/2 kneel, then to side sit then to floor using chair for BUE support to lower , then reverse to standing. Cued initially for correct execution and CGA to stabilize , then close SBA for remaining sets Discussion about getting in and out of van Name for pt small car (not van) Reps/Minutes 1x3 ea direction Comments Pt sitting on side of low chair w/o arm support, slide backward into chair then gently swing legs over chair simulating lift over small box . Pt then assisting with RLE lift using hands into final lift so RLE in front of pt. PT providing cues initally for correct execution, verbally cued pt also to keep LLE closer to RLE for comfort. Easier L>R Self-Care/Home Management Treatment Education Patient Education Body Mechanics,Home Exercise Program,Pain Management,Safety Other Education 10 minutes: PT and pt discussed current HEP, issued final HEP for pt to add into routine. New HEP: lunges with UE support, side steps with band around ankles, seated hip abduction, sit to stand with band. Instructed to only choose 5-6 exercises/day for a max of 20-30 minutes rather than performing all to prevent fatigue as pt is already performing other balance/ strength activity class. Recommended pt continue with [facility] is currently in, perform maintenance program 3x/wk. If pt willing and able, educated on available exercises classes in community. PT educated pt on safe mechanics getting in/out of car and in/out of tub, recommending shower chair for ease; then pt demonstrating safely during session using equipment to simulate set up. Pt verbalizes agreement for above. PT-OP-R Modalities Start: 04/01/23 14:20 Freq: Status: Active Protocol: Document 05/04/23 08:58 SP (Rec: 05/04/23 09:07 SP [id number]) Electric Stimulation Electric Stimulation Interferential Current (IFC) Body Location L hip Duration (Minutes) 8 Intensity 32 Combined With Heat/Cold Hot Pack PT-OP-T Assessment and Plan Start: 04/01/23 14:20 Freq: Status: Active Protocol: Document 08/21/23 14:34 NM (Rec: 08/21/23 15:59 NM [id number]) Physical Therapy Assessment Goals Eight Impairment Gait Short Term Goal (STG) Pt to walk household distances independently/mod independent with LRAD to show improving gait and tolerance to activity to return to PLOF. STG Duration 4 Neon Sign Installer Goal (LTG) Pt to walk community distances independently/mod independent with LRAD to show improving gait and tolerance to activity to return to PLOF. 08/18/23: Pt able to ambulate without AD, using nml gait mechanics with prn cues to prevent hip add during stance x500+ ft on different surfaces 05/15: Able to ambulate up to 170 ft (up to 1 block) independently with LRAD before requiring rest -- progressing toward goal LTG Duration 8 MET Seven Impairment Hip AROM Short Term Goal (STG) Pt's bilateral hip ER to improve to 20 or better to show improving AROM to perform functional activities. STG Duration 4 Custodial Goal (LTG) Pt's bilateral hip ER to improve to 25 or better to show improving AROM to perform functional activities. 08/17/23: 25 deg B hip ER 07/03/23: B hip ER 25 deg 05/15: L hip ER 15 deg, R hip ER 20 deg --progressing toward goal LTG Duration 8 MET Six Impairment Hip AROM Short Term Goal (STG) Pt's bilateral hip IR to improve to 30 or better to show improving AROM to perform functional activities. STG Duration 4 MET Neon Sign Installer Goal (LTG) Pt's bilateral hip IR to improve to 35 or better to show improving AROM to perform functional activities. 08/17/23: B hip 35 deg ea 07/03/23: R hip 30 deg, L 35 deg 05/15: L hip IR 25 deg, R hip IR 25 -- progressing toward goal LTG Duration 8 MET Five Impairment Hip AROM Short Term Goal (STG) Pt's bilateral hip ABD to improve to 25 or better to show improving AROM to perform functional activities. STG Duration 4 Neon Sign Installer Goal (LTG) Pt's bilateral hip abd to improve to 30 or better to show improving AROM to perform functional activities. 07/03/23: b hip abd 30 deg 05/15: L hip 20deg, R hip 20 deg - progressing toward goal LTG Duration 8 MET Four Impairment Hip AROM Short Term Goal (STG) Pt's bilateral hip flexion to improve to 105 or better to show improving AROM to perform functional activities. STG Duration 4 Neon Sign Installer Goal (LTG) Pt's bilateral hip flexion to improve to 115 or better to show improving AROM to perform functional activities. 08/18/23: 110 ea in supine, able to maintain 115 functionally in standing 07/03/23: L 105 deg, R 120 deg LTG Duration 8 PARTIALLY MET Three Impairment Pain Short Term Goal (STG) Pt to report bilateral hip pain of 5/10 or better with activity to show resolving pain symptoms. STG Duration 4 Custodial Goal (LTG) Pt to report bilateral hip pain of 2/10 or better with activity to show resolving pain symptoms. 08/18/23: 1/10 pain prn with activity or laying on hip (not consistent), 0/10 usually 07/03/23: Pt normally has max 2/10 pain with activity, usually 0/10 05/15: 3/10 pain with activity - progressing toward goal LTG Duration 8 MET Two Impairment MMT Short Term Goal (STG) Pt's gross BLE MMT scores to improve to 4-/5 or better to show improving strength to improve ability to perform functional activities. 07/03/23: All hip motions are at least 4-/5 STG Duration 4 MET Custodial Goal (LTG) Pt's gross BLE MMT scores to improve to 4+/10 or better to show improving strength to improve ability to perform functional activities. 08/18/23: 4+/5 for all with 5 isometric hold for max muscle recruitment 07/03/23: Progressing toward goal 4/5 for B ext/add; flex 4 -/5; L abd abnd ER 4-/5; R ER/ add/abd; IR 4+/5 4/5 LTG Duration 8 MET One Impairment Patient Questionnaire Short Term Goal (STG) Pt's LEFS score to improve to 25/80 or better to show improving subjective report of symptoms for an improved QOL. Custodial Goal (LTG) Pt's LEFS score to improve to 45/80 or better to show improving subjective report of symptoms for an improved QOL. 08/18/23: LEFS 45/80 05/15: LEFS 16/80 -- Progressing toward goal LTG Duration 8 MET Progress Towards Goals Progress Towards Goals Progressing Toward Goals,Goals Met Progress Comments Pt partially met hip flexion AROM goal, 110 deg ea in supine. Assessment Summary Assessment Pt tolerated session well. Session focus on reviewing past and finalizing maintenance HEP for pt to perform 3x/wk. Pt performed several hip abduction, quad, and glute strengthening exercises without difficulty. PT verbally cued pt for form, particularly to limit foot rotation during side steps and hurdles. Pt performed several squats to case picker weighted object from floor using squat with hip hinge, then transitioning to standing with side step over jt. PT educated pt on ways to trial getting in/out of her low car and high tub safely, with pt demonstrating ability to get in/out of both in simulated set up without difficulty. Educated on shower chair use for tub as her tub has high sides, otherwise continue with using low walk in shower at home. Pt reports greater confidence. Pt has been seen since IE in March 2023 s/p L FAUZIA. Recent sessions have been focusing on hip and knee strengthening, gait, and balance, including higher level activities. Pt has had significant improvements in B hip AROM, although she is still limited in B hip flexion AROM. Her BLE strengthis 4+/5 for all motions. She is able to perform several repetitions of squats, sit to stands, lunges, and other standing exercises with occasional hand support for balance and no difficulty. Pt reports minimal difficulty with ADLs/IADLs, recreational activities; she reports improved quality of life. She is participating in a community balance/ strengthening class, which she is enjoying. Pt has met all goals with exception of hip flexion AROM (partially met). PT and pt discussed discharge to independent exercise with maintenance HEP; pt and PT in agreement. PT educated pt on continued safety and body mechanics with exercises and ADLs, purpose of maintenance program, in addition to other additional community exercise programs for pt to try. PT also educated pt on following up with PCP for any changes or for further referral to PT as needed. Pt verbalizes understanding is safe to discharge to independent exercise. Physical Therapy Plan Discharge Physical Therapy Discharge Reasons Goals Met Discharge Comments Pt has met all goals and partially met hip flexion AROM goal (100 deg). Pt safe to discharge to independent exercise 3x/wk and is already participating in outside exercise program for balance/ strengthening without difficulty. Next Visit Focus/Plan Next Visit Plan Discharge from PT services
== END 2023-08-26 09:45 | disposition home or self-care (01) ==
LOC: PHYS 14:30
PROVIDERS: Family Provider Internal Medicine; PCP Internal Medicine; Referring Provider Physician Assistant; Visit Provider Physician Assistant
DX: M16.12 Unilateral primary osteoarthritis, left hip (principal)
CPT/HCPCS: 97014; 97110; 97112; 97116; 97140; 97162; 97530; 97535; G0283

== ENCOUNTER 2023-11-03 17:23 | Emergency (ER) | payer MEDICARE, OTHER, SELFPAY ==
[2023-11-03] VITALS (11 sets, daily range): BP systolic 129–159; BP diastolic 60–80; PULSE 82–102; RESP 16–22; TEMP 37.1; O2SAT 96–98; BMI 27.4
--- NOTE | 2023-11-03 17:33 | DI.RAD.S_ITS ---
PROCEDURE: XR CHEST 1V INDICATIONS: chest pain TECHNIQUE: One view of the chest was acquired. COMPARISON: [facility], CR, XR CHEST 2V, 06/30/2018, 12:43. FINDINGS: Surgical changes and devices: None. Lungs and pleura: Lungs are clear. No pleural effusions or pneumothorax. Mediastinum: Mediastinal contours appear normal. Heart size is normal. Bones and chest wall: No suspicious bony lesions. Overlying soft tissues appear unremarkable. Partially calcified bilateral breast implant capsules. IMPRESSION: No acute cardiopulmonary abnormality is seen. Dictated by: Wendi Dueñas M.D. on 11/03/2023 at 20:06 Approved by: Wendi Dueñas M.D. on 11/03/2023 at 20:06
[2023-11-03 18:00] LABS: Add Manual Diff / Slide Review NO; Basophils Absolute Auto 0 /uL (0-100); Basophils Percent Auto 0.3 % (0-2); Eosinophils Absolute Auto 200 /uL (0-450); Eosinophils Percent Auto 2.9 % (2-4); Hematocrit 45.6 % (36-46); Hemoglobin 15.1 g/dL (12.0-16.0); Lymphocytes Absolute Auto 2100 /uL (1100-4500); Lymphocytes Percent Auto 27.1 % (25-40); Mean Corpuscular Hemoglobin 28.7 PG (26-34); Mean Corpuscular Volume 86.8 fL (80-100); Monocytes Absolute Auto 1000 /uL (0-900); Monocytes Percent Auto 12.5 % (3-14); Neutrophils Absolute Auto 4400 /uL (1500-7000); Neutrophils Percent Auto 57.2 % (50-75); Platelet Count 259 X10^3/uL (150-400); Red Blood Cell Count 5.25 X10^6/uL (4.0-5.2); Red Cell Distribution Width 14.9 % (11.6-14.8); White Blood Cell Count 7.8 X10^3/uL (4.5-11.0)
[2023-11-03 18:07] LABS: INR 1.1 (0.9-1.3); Prothrombin Time 12.5 SECONDS (9.4-12.5)
[2023-11-03 18:10] LABS: PTT Partial Thromboplastin Tim 37 SECONDS (25.1-36.5)
[2023-11-03 18:12] LABS: Alanine Aminotransferase 26 IU/L (<35); Albumin 4.7 g/dL (3.5-5.0); Albumin Globulin Ratio 1.5 (1.0-2.8); Alkaline Phosphatase 113 U/L (38-126); Aspartate Aminotransferase 37 IU/L (14-36); Bilirubin Total 0.6 mg/dL (0.2-1.3); Blood Urea Nitrogen 20 mg/dL (7-17); Calcium 9.4 mg/dL (8.4-10.2); Carbon Dioxide 28 mmol/L (22-32); Chloride 106 mmol/L (98-107); Creatine Kinase 60 U/L (30-135); Estimated Glomerular Filt Rate > 60 mL/min (>60); Globulin 3.1 g/dL (1.7-4.1); Glucose 105 mg/dL (80-110); HEMOLYSIS < 15 (0-50); Lipase 84 U/L (23-300); Magnesium 2.1 mg/dL (1.6-2.3); Potassium 4.2 mmol/L (3.4-5.1); Sodium 138 mmol/L (137-145); Total Protein 7.8 g/dL (6.3-8.2)
[2023-11-03 18:23] LABS: Troponin I < 0.012 ng/mL (0.01-0.034)
--- NOTE | 2023-11-03 18:51 | ED_ITS ---
HPI - Chest Pain General Chief Complaint: Chest Pain Stated Complaint: Sent by Dr Higginbotham, possible heart attack Time Seen by Provider: 11/03/23 18:03 Source: patient Mode of arrival: Wheelchair Limitations: no limitations History of Present Illness HPI narrative: Patient is a 78-year-old female who stated that she was at her normal state of health. She had lunch with her today. She stated that shortly afterwards she had a very intense discomfort in her lower chest and upper abdomen. She stated that she then went and vomited. She now states she is having some abdominal bloating. No recent travel. No recent antibiotics. She contacted her primary doctor who sent her to the emergency department for concerns of the chest discomfort. Related Data Home Medications Medication Instructions Recorded Confirmed acetaminophen 325 mg capsule 650 mg PO Q6H PRN 12/06/18 12/06/18 naproxen 500 mg tablet,delayed 500 mg PO BID 12/06/18 release (EC-Naproxen) Previous Rx's Medication Instructions Recorded hydrocortisone 2.5 % topical cream 1 applictn topical BID #30 grams 03/12/18 fluticasone propionate 44 2 inhalation inhalation BID #10.6 07/16/18 mcg/actuation HFA aerosol inhaler grams (Flovent HFA) cetirizine 10 mg tablet 10 mg PO DAILY #90 tabs 07/21/18 venlafaxine 75 mg capsule,extended 75 mg PO QDAY #90 caps 11/01/18 release 24 hr (Effexor XR) albuterol sulfate 90 mcg/actuation 2 puff inhalation QID #6.7 grams 02/24/19 aerosol inhaler (Ventolin HFA) lidocaine 5 % topical patch 1 patch topical DAILY #15 ea 02/24/19 (Lidoderm) levothyroxine 112 mcg tablet 112 mcg PO QAM #90 tabs 03/18/19 (Synthroid) Allergies Allergy/AdvReac Type Severity Reaction Status Date / Time hydrocodone Allergy Severe vomiting, Verified 11/03/23 17:29 headache, slept 2 days azithromycin [AZITHROMYCIN] Allergy Unknown Verified 11/03/23 17:29 pneumococcal 7-valent Allergy Unknown Verified 11/03/23 17:29 conjugate to [From PREVNAR] Review of Systems Review of Systems ROS Unobtainable: All systems reviewed & are unremarkable except as noted in HPI and below Patient History Medical History Complex posttraumatic stress disorder Post traumatic stress disorder (PTSD) Hives (2016) Frozen shoulder (1993) Frozen shoulder (1992) Frozen shoulder (1991) Hepatitis Rectocele (2013) Ankle pain (2015) Shoulder pain (1991) Hypothyroidism (1994) Urinary incontinence (2013) ADHD (attention deficit hyperactivity disorder) Depression (2014) Asthma (2011) Surgical History Anesthesia Status post colonoscopy History of breast augmentation (1974) Family History Brother Bowel perforation Father Liver disorder Cirrhosis Grandfather No problems noted. Grandmother Maternal complication related to childbirth Mother Low blood pressure Grandfather No problems noted. Grandmother No problems noted. Social History Smoking Status: Never smoker Smoking Status: Never smoker alcohol intake frequency: holidays/special occasions only Substance Use Type: does not use Exam Initial Vital Signs Initial Vital Signs: Vital Signs Temperature 98.7 F 11/03/23 17:29 Pulse Rate 94 H 11/03/23 17:29 Respiratory Rate 16 11/03/23 17:29 Blood Pressure 158/80 H 11/03/23 17:29 Pulse Oximetry 96 11/03/23 17:29 Oxygen Delivery Method Room Air 11/03/23 17:29 HENMT Head: normal to inspection and normocephalic Resp Effort & Inspection: normal respiratory effort Auscultation: clear to auscultation bilaterally Cardio Rate: regular rate Rhythm: regular rhythm GI Inspection: normal to inspection and distended Palpation: soft, No firm and No guarding Skin General: no rashes or lesions noted Neuro General: patient alert, patient awake and moves all extremities Course Orders Ordered: ED Orders 11/03/23 17:33 XR chest 1V Stat EKG-12 Lead Stat 11/03/23 17:43 Complete Blood Count AUTO DIFF Stat Comprehensive Metabolic Panel Stat Lipase Stat Magnesium Stat PTT Partial Thromboplastin Bhavin Stat Prothrombin Time INR Stat Troponin & CK Cardiac Panel Stat 11/03/23 18:51 XR abdomen 1V Stat Discontinued Medications Aspirin (Aspirin 81 Mg Chew Tab) 324 mg PO NOW ONE Stop: 11/03/23 17:34 Vital Signs Vital signs: Vital Signs - 8 hr 11/03/23 18:30 11/03/23 18:31 11/03/23 18:31 Pulse Rate 91 H 91 H Respiratory Rate 18 22 Blood Pressure 159/65 H Pulse Oximetry 98 97 11/03/23 19:00 11/03/23 19:01 11/03/23 19:01 Pulse Rate 88 85 Respiratory Rate 18 22 Blood Pressure 129/77 Pulse Oximetry 96 96 11/03/23 19:30 11/03/23 19:31 11/03/23 19:31 Pulse Rate 90 86 Respiratory Rate 20 20 Blood Pressure 132/63 Pulse Oximetry 97 96 11/03/23 20:00 11/03/23 20:00 Pulse Rate 82 Respiratory Rate 22 Blood Pressure 136/60 Pulse Oximetry 96 MDM - Chest Pain Lab Data Attestation: I reviewed the patient's lab results. 11/03/23 17:43 11/03/23 17:43 Labs: Lab Results 11/03/23 Range/Units 17:43 WBC 7.8 (4.5-11.0) X10^3/uL RBC 5.25 H (4.0-5.2) X10^6/uL Hgb 15.1 (12.0-16.0) g/dL Hct 45.6 (36-46) % MCV 86.8 (80-100) fL MCH 28.7 (26-34) PG MCHC 33.0 (30-36) % RDW 14.9 H (11.6-14.8) % Plt Count 259 (150-400) X10^3/uL Neut % (Auto) 57.2 (50-75) % Lymph % (Auto) 27.1 (25-40) % Tucker % (Auto) 12.5 (3-14) % Eos % (Auto) 2.9 (2-4) % Baso % (Auto) 0.3 (0-2) % Neut # (Auto) 4400 (1185-0195) /uL Lymph # (Auto) 2100 (4174-4583) /uL Tucker # (Auto) 1000 H (0-900) /uL Eos # (Auto) 200 (0-450) /uL Baso # (Auto) 0 (0-100) /uL PT 12.5 (9.4-12.5) SECONDS INR 1.1 (0.9-1.3) APTT 37 H (25.1-36.5) SECONDS Sodium 138 (137-145) mmol/L Potassium 4.2 (3.4-5.1) mmol/L Chloride 106 (98-107) mmol/L Carbon Dioxide 28 (22-32) mmol/L BUN 20 H (7-17) mg/dL Creatinine 0.74 (0.52-1.04) mg/dL Estimated GFR > 60 (>60) mL/min BUN/Creatinine Ratio 27.0 H (6-22) Glucose 105 (80-110) mg/dL Calcium 9.4 (8.4-10.2) mg/dL Magnesium 2.1 (1.6-2.3) mg/dL Total Bilirubin 0.6 (0.2-1.3) mg/dL AST 37 H (14-36) IU/L ALT 26 (<35) IU/L Alkaline Phosphatase 113 (38-126) U/L Total Creatine Kinase 60 (30-135) U/L Troponin I < 0.012 (0.01-0.034) ng/mL Total Protein 7.8 (6.3-8.2) g/dL Albumin 4.7 (3.5-5.0) g/dL Globulin 3.1 (1.7-4.1) g/dL Albumin/Globulin Ratio 1.5 (1.0-2.8) Lipase 84 (23-300) U/L Urine Dip Bedside Urine Glucose Negative Bedside Urine Bilirubin - Negative Bedside Urine Ketone +/- 5 Urine Specific [place] 1.03 Bedside Urine Occult Blood - Negative Bedside Urine pH 6 Bedside Urine Protein - Negative Bedside Urine Urobilinogen - Negative Bedside Urine Nitrite - Negative Bedside Urine Leukocytes - Negative Esterase Imaging Data Chest x-ray: Radiologist's Impression: PROCEDURE: XR CHEST 1V INDICATIONS: chest pain TECHNIQUE: One view of the chest was acquired. COMPARISON: [facility], , XR CHEST 2V, 06/30/2018, 12:43. FINDINGS: Surgical changes and devices: None. Lungs and pleura: Lungs are clear. No pleural effusions or pneumothorax. Mediastinum: Mediastinal contours appear normal. Heart size is normal. Bones and chest wall: No suspicious bony lesions. Overlying soft tissues appear unremarkable. Partially calcified bilateral breast implant capsules. IMPRESSION: No acute cardiopulmonary abnormality is seen. Abdominal x-ray: Radiologist's Impression: PROCEDURE: XR ABDOMEN 1V INDICATIONS: abd pain and vomiting TECHNIQUE: One view of the abdomen acquired. COMPARISON: [facility], CR, XR LUMBAR SPINE WITH FLEXION EXTENSION 5 VIEWS, 04/11/2022, 12:57. [facility], CR, XR PELVIS WITH LATERAL HIP LEFT, 07/09/2023, 14:08. [facility], CR, XR CHEST 1V, 11/03/2023, 18:26. FINDINGS: Surgical changes and devices: Vertebroplasty material is seen projecting over the L5 vertebral body. Peripherally calcified breast implants are present. Bowel: Pelvis is obscured by positioning and field of view. Bowel gas pattern within the mid upper abdomen is nonspecific and nonobstructive. No pneumoperitoneum. Soft tissues: No suspicious abdominal calcifications. Visualized solid organ contours appear normal in size. Bones: No suspicious bony lesions. Levoconvex curvature of the lumbar spine and generalized osteopenia. IMPRESSION: Nonobstructive bowel gas pattern. No pneumoperitoneum. ECG Data Attestation: I personally reviewed and interpreted this ECG as follows: Interpretation: Sinus rhythm Ventricular rate 92 Normal axis Normal QRS Normal QTC No ST T changes MDM Narrative Medical decision making narrative: Her presentation today is most consistent with a GI related source. I have low suspicion for ACS. Chest x-ray is unremarkable. Abdominal x-ray not consistent with a obstruction. Her exam is not consistent with obstruction. I would not be surprised if she develops diarrhea over the next day or so. She has been tolerating oral intake. EKG shows no ischemic changes. Will discharge patient home with return precautions. She expressed understanding and agreement with plan. Discharge Plan Departure Patient Disposition: Home Clinical Impression: Vomiting, Abdominal pain Instructions: DI for Abdominal Pain-Adult, DI for Vomiting -- Adult Activity Restrictions/Additional Instructions: I do recommend a bland diet for the next couple days. I would not be surprised if you develop some diarrhea. Continue to take all of your medications as directed. Return to the emergency department for new or worsening symptoms Prescriptions: No Action venlafaxine [Effexor XR] 75 mg capsule,extended release 24hr 75 mg PO QDAY Qty: 90 3RF fluticasone propionate [Flovent HFA] 44 mcg/actuation HFA aerosol inhaler 2 inhalation INHALATION BID Qty: 10.6 0RF lidocaine [Lidoderm] 5 % adhesive patch,medicated 1 patch TOP DAILY Qty: 15 3RF Rx Instructions: leave on most painful area for 12 hrs Ventolin HFA 90 mcg/actuation HFA aerosol inhaler 2 puff INHALATION QID Qty: 6.7 3RF levothyroxine [Synthroid] 112 mcg tablet 112 mcg PO QAM Qty: 90 3RF hydrocortisone 2.5 % cream 1 applictn TOP BID Qty: 30 2RF naproxen [EC-Naproxen] 500 mg tablet,delayed release (DR/EC) 500 mg PO BID acetaminophen 325 mg capsule 650 mg PO Q6H PRN cetirizine 10 mg tablet 10 mg PO DAILY Qty: 90 2RF Referrals: Renetta Higginbotham MD [Primary Care Provider] - Stand Alone Forms: Patient Portal/API
--- NOTE | 2023-11-03 19:51 | PC.NURSE ---
pt lying on stretcher aao x 3 without any c/o pain at this time, family at bedside
== END 2023-11-03 20:33 | disposition home or self-care (01) ==
PROVIDERS: Emergency Medicine; Emergency Provider Emergency Medicine; Family Provider Internal Medicine; PCP Internal Medicine
DX: R10.9 Unspecified abdominal pain (principal); R11.10 Vomiting, unspecified
CPT/HCPCS: 36415; 71045; 74018; 80053; 81003; 82550; 83690; 83735; 84484; 85025; 85610; 85730; 93005; 99284

== ENCOUNTER → 2023-12-21 15:29 | Outpatient (CLI) | payer MEDICARE, OTHER, SELFPAY ==
--- NOTE | 2023-12-21 15:31 | DI.RAD.S_ITS ---
PROCEDURE: XR SHOULDER RT MIN 2V INDICATIONS: RT SHOULDER PAIN TECHNIQUE: 3 views of the shoulder were acquired. COMPARISON: [facility], CR, XR SHOULDER LT MIN 2V, 12/06/2018, 11:48. FINDINGS: Bones: No fractures or dislocations. No suspicious bony lesions. Visualized ribs appear intact. Moderate to severe glenohumeral as well as acromioclavicular arthritic narrowing. Periarticular osteophytes are present. No erosions. Soft tissues: No suspicious soft tissue calcifications. IMPRESSION: Acromioclavicular and glenohumeral arthritic change. Dictated by: Elda Alan M.D. on 12/21/2023 at 16:57 Approved by: Elda Alan M.D. on 12/21/2023 at 16:58
== END ==
PROVIDERS: Family Provider Internal Medicine; PCP Internal Medicine; Referring Provider Internal Medicine; Visit Provider Internal Medicine
DX: M25.511 Pain in right shoulder (principal)
CPT/HCPCS: 73030

== ENCOUNTER → 2024-01-13 12:25 | Outpatient (CLI) | payer MEDICARE, OTHER, SELFPAY ==
--- NOTE | 2024-01-13 13:00 | DI.MRI.S_ITS ---
PROCEDURE: MR SHOULDER RT WO CON INDICATIONS: RT SHOULDER PAIN / EVAL RT ROTATOR CUFF TECHNIQUE: Noncontrast oblique coronal T2 fast spin echo with fat saturation, oblique sagittal T1 spin echo and T2 fast spin echo with fat saturation, axial T1 spin echo and T2 fast spin echo with fat saturation through the shoulder. COMPARISON: None. FINDINGS: Image quality: Excellent. Rotator cuff: In the supraspinatus, there is high-grade, articular sided tear at the anterior footprint and at the critical zone of the anterior fiber (series 8, image 7), superimposed on moderate tendinosis. There is additional near full thickness, bursal sided, focal tear at the footprint of the junction of the supraspinatus and infraspinatus (series 8, image 9). Moderate tendinosis of the infraspinatus. The teres minor is unremarkable. The subscapularis is unremarkable. No muscle edema or fatty atrophy. Bones and bursae: Moderate degenerative changes of the acromioclavicular joint. Type 1 acromion. No os acromiale. Mild subacromial/subdeltoid bursitis. Moderate subchondral cystic changes with cortical irregularity at the greater tuberosity, which may be reactive versus postprocedure changes. No acute fracture. Capsule and soft tissues: Diffuse labral degeneration and tear. The extra-articular biceps tendon is extremely diminutive, likely secondary to high-grade tear. The distal intra-articular biceps tendon is not visualized, likely secondary to full-thickness tear. Small glenohumeral effusion. Moderate subcoracoid bursitis. IMPRESSION: 1. Moderate degenerative changes of the acromioclavicular joint. 2. Multifocal high-grade and focal near full-thickness tear of the supraspinatus. 3. Full-thickness tear of the distal intra-articular biceps tendon. Dictated by: Carol Root M.D. on 01/13/2024 at 16:24 Approved by: Carol Root M.D. on 01/13/2024 at 16:38
[2024-01-13 15:21] LABS: Estimated Glomerular Filt Rate > 60 mL/min (>60)
== END ==
PROVIDERS: Radiology Diagnostic Radiology; Family Provider Internal Medicine; PCP Internal Medicine; Referring Provider Orthopaedic Surgery; Visit Provider Orthopaedic Surgery
DX: M75.111 Incomplete rotator cuff tear or rupture of right shoulder, not specified as traumatic (principal); M25.511 Pain in right shoulder; F43.23 Adjustment disorder with mixed anxiety and depressed mood; S46.211A Strain of muscle, fascia and tendon of other parts of biceps, right arm, initial encounter
CPT/HCPCS: 36415; 73221; 82565

== ENCOUNTER → 2024-01-14 10:39 | Outpatient (CLI) | payer MEDICARE, OTHER, SELFPAY ==
--- NOTE | 2024-01-14 10:40 | DI.CT.S_ITS ---
PROCEDURE: CT ABDOMEN PELVIS W CON INDICATIONS: ABDOMINAL PAIN / HERNIA TECHNIQUE: After the administration of intravenous contrast, axial sections acquired from the lung bases to the pubic symphysis. Coronal and sagittal reformats were performed. For radiation dose reduction, the following was used: automated exposure control, adjustment of mA and/or kV according to patient size. Valsalva was performed during the scan. Patient was unable to palpate abnormality at the time of exam. COMPARISON: None. FINDINGS: Image quality: Diagnostic Lower chest: Basal atelectasis/scarring. Dystrophic calcification partially seen in the right breast. Moderate hiatal hernia. Normal heart size where visualized Liver: No solid mass. Calcification at Morison's pouch is present. Gallbladder and biliary system: Unremarkable, nondilated Pancreas: No ductal dilation Spleen: Nonenlarged Adrenals: No discrete nodule Kidneys: No solid mass or hydronephrosis Vessels and lymph nodes: The main portal vein is patent. No abdominal aortic aneurysm. No pathologic lymph nodes by size criteria Bowel and peritoneum: There is focal wall thickening at the gastric cardia. No small bowel obstruction. No pathologic ascites. Body wall: Tiny fat containing umbilical hernia. No discrete abdominal wall defect identified elsewhere. Pelvis: Obscured by metallic artifact. Bladder is unremarkable. Reproductive organs are unremarkable on limited CT evaluation Bones: Bilateral hip arthroplasties. Degenerative changes. Sequelae of vertebral augmentation. Nerve stimulator is present. L1 height loss adjacent determinate. IMPRESSION: No significant hernia identified on this study performed with Valsalva. Patient was not able to palpate a focal abnormality on this study. There is a tiny fat containing umbilical hernia. Moderate hiatal hernia and focal wall thickening at the gastric cardia, consider endoscopic correlation. L1 height loss, age indeterminate. Other areas of vertebral augmentation at L3 and L5. Other incidental and likely nonacute findings are described above. Dictated by: Reinaldo Fields M.D. on 01/14/2024 at 15:58 Approved by: Reinaldo Fields M.D. on 01/14/2024 at 16:04
== END ==
PROVIDERS: Family Provider Internal Medicine; PCP Internal Medicine; Referring Provider Specialist; Visit Provider Specialist
DX: K44.9 Diaphragmatic hernia without obstruction or gangrene (principal); R10.9 Unspecified abdominal pain; Z96.643 Presence of artificial hip joint, bilateral; Z96.82 Presence of neurostimulator
CPT/HCPCS: 74177; Q9967

== ENCOUNTER 2024-01-26 16:00 | Outpatient (RCR) | payer MEDICARE, OTHER, SELFPAY ==
--- NOTE | 2023-12-21 16:59 | ST.OPIE ---
Visit Care Team Role Provider Type Renetta Higginbotham MD Family Provider Physician Primary Care Provider Specialty: Internal Medicine Address: [place], [address] Email: Tae Loja MD Attending Provider Physician Referring Provider Specialty: Ear, Nose, Throat Address: [address] [place] [address], [id number] Email: [email or web address] Speech-Language Pathology Initial Evaluation LIVESTOCK PRODUCER Voice Resonance Evaluation Start: 12/21/23 14:48 Freq: Status: Active Protocol: Document 12/21/23 14:49 MA (Rec: 12/21/23 14:50 MA [id number]) Voice and Resonance Assessment Session Time Visit Start Time 14:30 Visit Stop Time 15:15 Total Visit Minutes 45 Visit Information Visit Number 1 Plan of Care Dates 12/21/23-03/22/24 Insurance Information Medicare Next Note Type Next Note Type Treatment Note Referral Referring Physician Tae Loja Reason for Referral Hoarseness Setting Setting Outpatient Care Patient History Patient History Pt is a 78-year-old woman who was referred for a voice evaluation due to vocal hoarseness and a history of GERD. Per her medical record, she also has a relevant history of ADHD, anxiety, PTSD , hypothyroidism, and situational asthma. She is a heavy voice user as she has permanent guardianship of two grandchildren, who are diagnosed with ASD. She reported needing to shout frequently, but has been trying to reduce this recently. 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 She shared that she previously had a marielle voice and would like to improve her current vocal quality. 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 She states she believes it went away due to her not using her voice as much hand taking a acid supervisor spinning. She reports she has been trying to manage her stress levels by watching tv and taking walks. She reports this voice issue has been going on for years, however has become worse the past 6 months. She states sheh frequently has sees her ENT for endoscopies, and reported the last one was completed May 2023, which she states showed no abnormalities . She reports she will lose her voice while talking for too long on the phone. Hearing Hearing Level Normal Vision Vision Status Not Impaired Occupational Status Occupation Status Guardian of her two grandchildren with complex needs Previous Therapy Previous Speech-Language Therapy Yes History of Previous Therapy Pt had a voice evaluation completed on 11/21/20 d/t hoarseness, however did not return to therapy. She reports she still has the exercises provided. Oral Motor Assessment Source: [place] ([employer]). Oral-Motor Eval Completed No: Informal observation indicated structures and function to be WNL. Subjective Subjective Pt arrived on time and was cooperative throughout the assessment. She did present with significant anxiety related to a variety of personal factors. - Laryngeal Performance S/Z Ratio S/Z Ratio 13 seconds /s/ to 7 seconds /z /: 1.4 Functional for Speech Yes Reduced Laryngeal Function Relative to Yes: Slightly. Respiration Voice Handicap Index Function Subtotal 11 Physical Subtotal 25 Emotional Subtotal 15 Total Score 51 Severity Moderate (31-60) CAPE-V Additional Features Asthenia,Tremor Other Features Observed Pitch breaks Maximum Phonation Time MPT Norms: Women (15-25) Men (25-35) Loudness (50-60 dB); Speaking Rate: Oral Reading of Sentences (190 Words Per Minute); Oral Reading of Paragraphs (160-170 WPM); Speaking Rate in Conversation (150-250 WPM) Maximum Phonation Time 10.5 during sustained /ah/ Maximum Phonation Time Reduced Maximum Phonation Time Comments While the sustained /ah/ was reduced, pt was observed to have adequate respiratory support for phonation during conversation. She exhibited appropriate breath pauses during conversation. Breath Support Breath Support At Rest Thoracic Breath Support Sustained Phonation Thoracic Breath Support Sustained Phonation Pt did not appear to take an Comment adequate breath prior to sustained /ah/ tasks. Breath Support Conversation Thoracic Breath Support Conversation Comment Breath support during conversation was WFL. Postural Alignment Stance Balanced Neck Free and Loose Shoulders Symmetrical Findings Observations Pt presents with mild-moderate voice deficits, characterized by breathiness, roughness, and occasional tremor. The vocal quality described is suspected to be secondary to vocal fold irritation due to GERD, as well as age-related vocal fold bowing. The combination of frequent yelling, vocal fold bowing, and irritation from GERD would lead to inadequate adduction (closure) of the vocal folds and poor vocal quality. Inadequate laryngeal muscular strength requires increased effort when talking to adduct the vocal folds for voice production. Additionally, pt exhibits significant anxiety and overall tension which contributes to laryngeal muscular fatigue and poor vocal quality as a result. Prognosis Rehabilitation Potential Good - Recommendations Treatment Recommended Yes Treatment Frequency/Duration Once every 1-2 weeks for 3 months. Placement Recommendation Outpatient Therapy Therapy Recommendations Voice therapy is recommended to increase laryngeal muscular strength required for voicing . Short Term Goals Pt will report completion of vocal fold adduction exercises , 30x/3x per day. Pt will demonstrate use of abdominal breathing in order to increase MPT to 16 seconds. Polystyrene Bead Molder Goals Pt will report increased satisfaction with her voice, as measured by patient interview. Referrals Referrals Psychology Patient/Caregiver Education Patient/Family Education Described results of evaluation,Patient Demonstration,Patient Needs More Info
--- NOTE | 2023-12-21 16:59 | ST.OPPOC ---
Physical, Occupational & Speech Therapy At [facility] Visit Care Team Role Provider Type Renetta Higginbotham MD Family Provider Physician Primary Care Provider Address: [place], [address] Tae Loja MD Attending Provider Physician Referring Provider Address: [address] [place] [address], [place], [address] Speech Pathology Plan of Care Plan of Care Dates 12/21/23-03/22/24 Referring Provider Tae Loja Patient History Pt is a 78-year-old woman who was referred for a voice evaluation due to vocal hoarseness and a history of GERD. Per her medical record, she also has a relevant history of ADHD, anxiety, PTSD , hypothyroidism, and situational asthma. She is a heavy voice user as she has permanent guardianship of two grandchildren, who are diagnosed with ASD. She reported needing to shout frequently, but has been trying to reduce this recently. 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 She shared that she previously had a marielle voice and would like to improve her current vocal quality. 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 She states she believes it went away due to her not using her voice as much hand taking a acid log driver. She reports she has been trying to manage her stress levels by watching tv and taking walks. She reports this voice issue has been going on for years, however has become worse the past 6 months. She states sheh frequently has sees her ENT for endoscopies, and reported the last one was completed May 2023, which she states showed no abnormalities. She reports she will lose her voice while talking for too long on the phone. Voice/Resonance Prognosis Good Voice/Resonance Yes Recommendations Voice/Resonance Treatment Once every 1-2 weeks for 3 months. Frequency Therapy Recommendations Voice therapy is recommended to increase laryngeal muscular strength required for voicing . Short Term Goals Pt will report completion of vocal fold adduction exercises , 30x/3x per day. Pt will demonstrate use of abdominal breathing in order to increase MPT to 16 seconds. Gun Perforator Loader Goals Pt will report increased satisfaction with her voice, as measured by patient interview. Comment: Electronically Signed by: HERACLIO Kevin 12/21/23 3400 If you are in agreement with this Plan of Care, please return a signed and dated copy. I have reviewed this Plan of Care and certify that the skilled therapy services above are required to meet the patient?s needs. Physician Signature Date Printed Name and Credentials Clinical Instructor Signature Printed Name and Credentials
--- NOTE | 2024-01-01 10:29 | ST.OPTN ---
Visit Care Team Role Provider Type Renetta Higginbotham MD Family Provider Physician Primary Care Provider Address: [place], [address] Tae Loja MD Attending Provider Physician Referring Provider Address: [address] [place] [address] [place], [address] PSYCHOLOGY PROFESSOR Treatment Note PSYCHOLOGY PROFESSOR Treatment Note Start: 01/01/24 10:23 Freq: Status: Active Protocol: Document 01/01/24 10:24 MA (Rec: 01/01/24 10:29 MA [id number]) Speech Pathology Treatment Note Session Time Visit Start Time 09:45 Visit Stop Time 10:15 Total Visit Minutes 30 Visit Information Visit Number 2 Plan of Care Dates 12/21/23-03/22/24 Next Note Type Next Note Type Treatment Note General Information Patient History Pt is a 78-year-old woman who was referred for a voice evaluation due to vocal hoarseness and a history of GERD. Per her medical record, she also has a relevant history of ADHD, anxiety, PTSD , hypothyroidism, and situational asthma. She is a heavy voice user as she has permanent guardianship of two grandchildren, who are diagnosed with ASD. She reported needing to shout frequently, but has been trying to reduce this recently. 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 She shared that she previously had a marielle voice and would like to improve her current vocal quality. 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 She states she believes it went away due to her not using her voice as much hand taking a acid health and wellness sales consultant. She reports she has been trying to manage her stress levels by watching tv and taking walks. She reports this voice issue has been going on for years, however has become worse the past 6 months. She states sheh frequently has sees her ENT for endoscopies, and reported the last one was completed May 2023, which she states showed no abnormalities . She reports she will lose her voice while talking for too long on the phone. Subjective Identification Type Name Observations/Patient Presentation Pt arrived to therapy on time. Objective Halfway Goals Pt will report increased satisfaction with her voice, as measured by patient interview. Treatment Activities Gerd precautions, vocal hygiene education, vocal function exercises, vocal adduction exercises Assessment Patient Response to Treatment Excellent Rehab Potential Excellent Impairments Identified Voice Assessment of Improvement Pt reports her vocie is at it' s worse between 1pm-2pm each day. She also asked if GERD could be the cause of her vocie issues. ST educated Pt on how GERD can contribute to voice disorders, specifically LPR. ST provided an educationl handout on reflux precautions and what LPR/GERD is. Pt reports she has made some dietary changes, however whenever she raises her voice she gets a sour feeling in her stomach. Pt has reported she has to shout a lot at home in order for her two granddaughters to follow directions. ST provided suggestions on ways to prevent having to shout at home, such as setting an alarm instead. Pt reports she may look into getting walkie talkies as well to communicate with her granddaughters vs yelling. She states she has a hernia that she has had for a long time that she will discuss with her PCP. ST provided hand outs on vocal hygiene, vocal function exercises and vocal adduction exercises. ST provided a demonstration of each exercise with Pt modeling back with about 100% accuracy requiring mild cues. ST encouraged Pt to complete exercises 2-3x/day 10 reps each. Pt verbalized understanding. Plan Provided Patient/Caregiver Instruction Home Exercise Program,Plan of Care,Questions/Concerns
--- NOTE | 2024-01-20 14:21 | ST.OPTN ---
Visit Care Team Role Provider Type Renetta Higginbotham MD Family Provider Physician Primary Care Provider Address: [place], [address] Tae Loja MD Attending Provider Physician Referring Provider Address: [address] [place] [address] [place], [address] INSPECTOR [employer]AL [employer]SEM[employer] CONVEYOR LINE Treatment Note INSPECTOR [employer] Treatment Note Start: 01/01/24 10:23 Freq: Status: Active Protocol: Document 01/20/24 14:09 JOANN (Rec: 01/20/24 14:19 [place] [id number]) Speech Pathology Treatment Note Session Time Visit Start Time 13:45 Visit Stop Time 14:15 Total Visit Minutes 30 Visit Information Visit Number 3 Plan of Care Dates 12/21/23-03/22/24 Next Note Type Next Note Type Treatment Note General Information Patient History Pt is a 78-year-old woman who was referred for a voice evaluation due to vocal hoarseness and a history of GERD. Per her medical record, she also has a relevant history of ADHD, anxiety, PTSD , hypothyroidism, and situational asthma. She is a heavy voice user as she has permanent guardianship of two grandchildren, who are diagnosed with ASD. She reported needing to shout frequently, but has been trying to reduce this recently. 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 She shared that she previously had a marielle voice and would like to improve her current vocal quality. 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 She reports she has been trying to manage her stress levels by watching tv and taking walks. She reports this voice issue has been going on for years, however has become worse the past 6 months. She states sheh frequently has sees her ENT for endoscopies, and reported the last one was completed May 2023, which she states showed no abnormalities . She reports she will lose her voice while talking for too long on the phone. Subjective Identification Type Name Observations/Patient Presentation Pt arrived to therapy on time. Objective Group Home Goals Pt will report increased satisfaction with her voice, as measured by patient interview. Treatment Activities vocal function exercises, vocal adduction exercises, diaphragmatic breathing Assessment Patient Response to Treatment Excellent Rehab Potential Excellent Impairments Identified Voice Assessment of Improvement Pt reports she has been practicing voice exercises at home and has been able to sustain a vowel for up to 20 seconds. However, during session she was able to sustain /ah/ and /ee/ for about 7-8 seconds with increasingly hoarse vocal quality, however Pt with clear vocal quality during conversation. She states she has a hernia that she has had for a long time that she will discuss with her PCP, which she thinks may be contributing to reduced air support during sustained phonation tasks. ST instructed Pt in diaphragmatic breathing and provided a handout. Pt demonstrated with 100% accuracy. She reports this may help with her stress level too. She completed vocal cord adduction exercises and voocal function exercises with about 90% accuracy requiring mild cues. ST encouraged Pt to complete exercises 2-3x/day 10 reps each. Pt verbalized understanding. Plan Provided Patient/Caregiver Instruction Home Exercise Program,Plan of Care,Questions/Concerns
--- NOTE | 2024-01-26 16:25 | ST.OPTN ---
Visit Care Team Role Provider Type Renetta Higginbotham MD Family Provider Physician Primary Care Provider Address: [place], [address] Tae Loja MD Attending Provider Physician Referring Provider Address: [address] [place] [address] [place], [address] PADDING GLUER Treatment Note PADDING GLUER Treatment Note Start: 01/01/24 10:23 Freq: Status: Active Protocol: Document 01/26/24 16:21 MA (Rec: 01/26/24 16:25 MA [id number]) Speech Pathology Treatment Note Session Time Visit Start Time 16:00 Visit Stop Time 16:30 Total Visit Minutes 30 Visit Information Visit Number 4 Plan of Care Dates 12/21/23-03/22/24 Next Note Type Next Note Type Treatment Note General Information Patient History Pt is a 78-year-old woman who was referred for a voice evaluation due to vocal hoarseness and a history of GERD. Per her medical record, she also has a relevant history of ADHD, anxiety, PTSD , hypothyroidism, and situational asthma. She is a heavy voice user as she has permanent guardianship of two grandchildren, who are diagnosed with ASD. She reported needing to shout frequently, but has been trying to reduce this recently. 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 She shared that she previously had a marielle voice and would like to improve her current vocal quality. 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 She states she believes it went away due to her not using her voice as much hand taking a acid endoscopy nurse. She reports she has been trying to manage her stress levels by watching tv and taking walks. She reports this voice issue has been going on for years, however has become worse the past 6 months. She states sheh frequently has sees her ENT for endoscopies, and reported the last one was completed May 2023, which she states showed no abnormalities . She reports she will lose her voice while talking for too long on the phone. Subjective Identification Type Name Observations/Patient Presentation Pt arrived to therapy on time. Objective Short Term Goals STG 1- Pt will report completion of vocal fold adduction exercises , 30x/3x per day. MET STG 2- Pt will demonstrate use of abdominal breathing in order to increase MPT to 16 seconds. - MET [facility] Goals LTG 1- Pt will report increased satisfaction with her voice, as measured by patient interview.- MET Treatment Activities Conversation regarding discharge and recommendations Assessment Patient Response to Treatment Excellent Rehab Potential Excellent Impairments Identified Voice Assessment of Improvement Pt reports she has been practicing voice exercises at home and has been able to sustain a vowel for up to 20 seconds. She states improvements with her voice. She reports she saw her PCP recently and believes her voice issues are d/t stress. She is requesting to be discharged so she can focus on her stress level and self care. She states the diaphragmatic breathing has been helpful. ST recommended she continue diaphragmatic breathing as well as circumlaryngeal massage and to return to therapy if changes in voice occur. Pt verbalized understanding. Plan Provided Patient/Caregiver Instruction Home Exercise Program,Plan of Care,Questions/Concerns
== END 2024-01-29 07:46 | disposition home or self-care (01) ==
LOC: SP 16:00
PROVIDERS: Family Provider Internal Medicine; PCP Internal Medicine; Referring Provider Otolaryngology; Visit Provider Otolaryngology
DX: R49.0 Dysphonia (principal)
CPT/HCPCS: 92507; 92523